=== PATIENT | female | born 1960 | race Caucasian/White ===

== ENCOUNTER 2021-05-14 09:11 | Outpatient (RCR) | payer MEDICARE, MEDICAID, SELFPAY ==
--- NOTE | 2021-05-14 11:24 | HP.OTEVAL_ITS ---
Patient's Visit Information JADE SWANSON is a 60 year old F, referred to Occupational Therapy by ERICA RUIZ, with a diagnosis of lymphedema. Date of Evaluation: 05/14/21 Occupational Therapist: Isha Jamison, SAVANNAH/Kendra, CHT - Subjective This 60 year old female was seen for OT anny with dx of LE lymphedema. Pt states she has had swelling in her LE for over 5 years. pt states her legs are slightly smaller in the morning, but elevation alone does not make much of a differance- pt states she was taken off a diuretic last year by her kidney dr. and swelling has gotten worse since this was done. Pt states she did get compression socks at that time but was unable to get them on. pt states a long time ago she had a leg pump (8-9 years ago after vein stripping) - but she lost it. pt states she would like to know what she can do to limit the swelling or mtg. better- Pt already has script from for velcro closure compression garments- they are having difficulty with getting them approved through the insurance company - ( compression class was not high enough) this therapist advised pt to contact the ordering dr for compression garments and see why they order that compression class and if they could increase the compression class so insurance would assist with covering garments - pts and pts family agreed to contact them. - - Lymphedema (Circumferential Measure) Mid-foot: right 24cm left 24cm Ankle: right 28cm left 27cm Lower calf: right 31cm left 32cm Largest calf: right 42cm left 44cm Below knee: right 36cm left 38cm - Goals Demonstrate a 20% reduction in edema by d/c: Yes Demonstrate adequate knowledge of self-massage by 2nd week: Yes Demonstrate adequate knowledge skin care/prec by 2nd week: Yes Demonstrate adequate knowledge therapeutic exercises by d/c: Yes Select approp compression garment w/donning/care/wear by d/c: Yes Voice need to replace compression garment every 4-6mo by dc: Yes - Rehabilitation General Assessment: pt demo with edema in LE - noted Left LE with hyperpigmentation (salmon pink in color) -. pt demo with stage II as pt does report elevation does not make much of a difference in her limb size. Pt demo with need of skilled Therapy services 2-3 visits to ed. pt on lifetime mtg of her lymphedema. Today therapist ed. pt and pts family on lymph dx, treatments and lymph stim exercises. therapist also ed. pt on skin care - and why she needs compression garments to assist in fluid circulation when she is ambulating. pt and pts family demo understanding-. in regards to pt asking about a pump to assist with fluid movement- would rec'd getting cleared by her kidney drInes due to risk of fluid moving and stressing her kidneys. pt agree to speak with them. pt and pts dtr placed order for compression garment at [facility] in [place] and will return with compression device to ensure proper fit and at that time therapist will ed. pt on self Manual lymph massage so pt can perform 3 x a day. pt and pts family agree to POC. Rehabilitation Potential: Good - Anticipated Interventions Education re Diagnosis, Manual Lymph Drainage, Education re Life-long lymphedema Management, Education re Skin Care and Precautions, Education re Self Massage Techniques, Education re Correct Donning Tech,Care&Wearing Sched Comp Garments, Caregiver Training, Home Program - Visit Plan TEXT: Thank you for the opportunity to evaluate your patient. For Medicare and Medicare HMO plans, please review the plan of care and approve it. It will need to be FAXED BACK to us at [phone] for Medicare purposes. Please let me know if there are questions or concerns regarding this plan of care. Physician Signature: Date:
== END 2021-05-14 19:00 | disposition home or self-care (01) ==
LOC: OT 09:11
DX: R60.0 Localized edema (principal); I89.0 Lymphedema, not elsewhere classified
CPT/HCPCS: 97166; 97530

== ENCOUNTER → 2022-12-02 | Outpatient (CLI) | payer MEDICARE, MEDICAID, SELFPAY ==
--- NOTE | 2022-12-02 16:35 | RAD_ITS ---
INDICATION: DISC DEGENERATION EXAMINATION/TECHNIQUE: X-RAY - XR Sacrum/Coccyx 3 Views COMPARISON: FINDINGS: SACRUM/COCCYX: No displaced fracture, destructive or sclerotic lesions. Note that overlapping bowel shadows may however obscure fine detail in the frontal view. SACRO-ILIAC JOINTS: The articular structures are unremarkable. SOFT TISSUES: No soft tissue swelling or gas. RAD/Sacrum-Coccyx min 2 Views IMPRESSION: No acute bony injury of the sacro-coccygeal spine. Electronically Signed: Zaheer Cardenas DO at 17:30 EDT Reading Location ID and State: [facility] / [place] Tel [phone], Service support ,
== END | disposition home or self-care (01) ==
LOC: RAD 16:23
PROVIDERS: PCP Nurse Practitioner Family; Referring Provider Anesthesiology Pain Medicine; Visit Provider Anesthesiology Pain Medicine
DX: M51.36 Other intervertebral disc degeneration, lumbar region (principal); M51.37 Other intervertebral disc degeneration, lumbosacral region
CPT/HCPCS: 72220

== ENCOUNTER 2022-12-12 16:28 | Emergency (ER) | payer MEDICARE, MEDICAID, SELFPAY ==
[2022-12-12 16:28] VITALS: BP 143/75; PULSE 69; RESP 18; TEMP 36.4; O2SAT 100
--- NOTE | 2022-12-12 16:33 | EDS_ITS ---
HPI History of Present Illness Chief Complaint: Chest Pain [facility] Medical History (Updated 12/12/22 @ 16:54 by Trell Santana) CHF (congestive heart failure) Diabetes Emphysema lung Heart attack Hypothyroid Kidney failure Neuropathy Schizoaffective disorder, bipolar type Allergy/AdvReac Type Severity Reaction Status Date / Time aspirin Allergy Mild Hives Verified 12/12/22 16:33 erythromycin base Allergy Mild Hives Verified 12/12/22 16:33 Penicillins Allergy Mild Hives Verified 12/12/22 16:33 polyethylene glycol 3350 Allergy Mild Nausea/Vom/ Verified 12/12/22 16:33 [From Miralax] Diarrhea tramadol Allergy Mild Hives Verified 12/12/22 16:33 Social History Smoking Status: Current every day smoker tobacco type: cigarettes EXAM Physical Exam Const Vital Signs: 12/12/22 16:28 12/12/22 16:48 12/12/22 16:54 Temperature 97.5 F L 97.5 F L Temperature Source Temporal Oral Pulse Rate 69 60 Respiratory Rate 18 18 Blood Pressure 143/75 H 150/70 H Blood Pressure Mean 97 96 Pulse Ox 100 99 100 Oxygen Delivery Method Room Air Room Air Room Air Heart Score History: Slightly/Non-Suspicious ECG: Normal Age: >45 - <65 years Risk Factors: >/= 3 Risk Factors or History of CAD Troponin: </= Normal Limit Score: 3 MDM MDM MDM Narrative Medical decision making narrative: HISTORY OF PRESENT ILLNESS: 62-year-old female here with chest pain. States she is COVID-positive. States she was diagnosed 2 days ago. States starting chest pain this morning. She further states that started earlier today. Pain is described as pressure and sharp. It is not pleuritic. She does have a cough. Pain is worse with cough. Cough is nonproductive. No recent trauma to the chest. She notes she is still smoking. The patient denies recent surgery in the last 4 weeks or immobilization in the last 3 days, denies previous diagnosis of DVT or PE, hemoptysis, unilateral leg swelling or malignancy with treatment the last 6 months or palliative. No estrogen use noted. Patient denies sudden onset of pain, no tearing sensation, no migratory symptoms, no new numbness, weakness or loss of sensation. Patient denies family history or personal history of Connective tissue disorders (Marfan's Syndrome, Diann Danlos etc) REVIEW OF SYSTEMS: Pertinent positives: Chest pain, cough Pertinent negatives: Syncope, focal weakness, headache, neck stiffness, abdominal pain, unilateral leg swelling PHYSICAL EXAM: Nursing triage notes reviewed, Vital signs reviewed Constitutional: please see mdm HENT: MMM Eyes: Pupils equal round and reactive to light, Extraocular muscles intact Neck: No stridor, no JVD, full neck ROM Lungs: Diminished breath sounds throughout, positive wheezing no increased work of breathing, no conversational dyspnea, no accessory muscle use, no nasal flaring. No respiratory distress noted Heart: Regular rate and rhythm, No murmurs, No rubs and No gallops, 2+ distal pulses (radial, femoral, posterior tibial) in all extremities Abdomen: Soft, there is no tenderness, rigidity, rebound or guarding, no obvious peritoneal signs, no palpable pulsatile abdominal masses, no auscultated abdominal bruit : No CVAT Extremities: No edema Neuro: No focal neurological deficits, cranial nerves II through XII intact, 5/5 strength in all extremities. Intact sensation to light touch in all extremities, 2+ reflexes bilateral patella tendons. Normal gait. No ataxia. Skin: No rash or lesions noted MEDICAL DECISION MAKING: Chief Complaint: Chest pain External records reviewed: Imaging studies reviewed: No recent cardiac catheterizations, stress or echocardiograms noted in the chart. Baseline creatinine 1.39 per clinic thank Factors affecting care: COVID-19, COPD on home O2, CAD status post MS, VTE on Eliquis per the patient Social determinants of health: Current tobacco user History obtained from others: The patient's friend Consults: none [facility] Narrative: Patient was hemodynamically stable, afebrile, nontoxic-appearing. Exam with slight wheezing noted, no other focal cardiopulmonary abnormalities noted on exam I considered the following differential diagnosis: COVID-19 induced inflammation, bacterial pneumonia, ACS, arrhythmia, anemia, pneumothorax, PE, aortic dissection I considered pulmonary embolism without this was less likely given the patient's low risk Wells score and presence of Eliquis with compliance. Also consider aortic dissection however the patient no pulse deficits, no focal neurodeficits or history physical exam suggestive of aortic dissection. I obtained a broad lab and imaging work-up to further elucidate the etiology of the patient's complaints. ALL IMAGES (IF OBTAINED) HAVE BEEN PERSONALLY REVIEWED AND INTERPRETED BY MYSELF . EKG with normal sinus rhythm, normal axis, normal intervals, no STEMI CBC with mild anemia, no leukocytosis to suggest systemic inflammation, noted thrombocytopenia BMP with no electrolyte abnormalities, noted with mild CHELSEY on CKD Troponin is negative, no evidence of myocardial ischemia BNP within normal limit suggestive no increase stretch or heart strain I have personally reviewed the patient's chest x-ray. Chest x-ray is unremarkable for pulmonary edema, pneumothorax, pneumonia or focal cardiopulmonary abnormality. The amalgamation the patient's history, physical exam lab and imaging studies are suggestive of a COVID-19 infection resulting in chest inflammation and exacerbation of her underlying medical conditions. Repeat exam showed improvement in wheezing. She was not hypoxic. She not meet criteria for admission at this time. She did have acute kidney injury on CKD however she is not vomiting is likely dehydration from insensible loss from COVID. Encouraged her to increase her fluid intake and to return if she developed decreased urination, worsening symptoms including syncope, chest pain or focal weakness. Patient agreed she is appropriate for discharge and agreed to follow my home- going instructions. The patient and/or family, caregivers express understanding. The patient and/or family, caregivers agrees with the plan. Shared decision making: I will have a discussion with the patient and or visitors regarding risk/benefits of further testing or admission. They will be made aware of of the risk/benefits inherent in this decision they will be given the opportunity to voice understanding. Total critical care time today provided was at least 0 minutes. This excludes separately billable procedures. Critical care time (if documented) is secondary to the patient having high probability of clinically significant/life threatening deterioration in the patient's condition which required my urgent intervention. Impression: 1. COVID-19 2. Chest pain 3. Thrombocytopenia 4. CHELSEY on CKD Dispo: Discharge Lab Data Attestation: I reviewed the patient's lab results. Labs: Laboratory Results - last 24 hr 12/12/22 16:46 WBC 5.1 RBC 3.56 L Hgb 10.1 L Hct 32.2 L MCV 90.4 MCH 28.4 MCHC 31.4 L RDW Std Deviation 49.8 H RDW Coeff of Penny 15.0 H Plt Count 119 L MPV 9.5 Immature Gran % (Auto) 0.200 Neut % (Auto) 60.8 Lymph % (Auto) 20.5 [place] % (Auto) 14.8 H Eos % (Auto) 3.3 Baso % (Auto) 0.4 Absolute Neuts (auto) 3.1 Absolute Lymphs (auto) 1.04 Nucleated RBC % 0 Sodium 139 Potassium 4.2 Chloride 104 Carbon Dioxide 31.0 Anion Gap 4 L BUN 27 H Creatinine 1.81 H Estim Creat Clear Calc 26.32 Est GFR (MDRD) Af Amer 36 L Est GFR (MDRD) Non-Af 30 L BUN/Creatinine Ratio 14.9 Glucose 91 Calcium 8.7 Troponin I High Sens 7 B-Natriuretic Peptide 58.4 Radiography Chest X-Ray - ED: Read by ED Physician Diagnostic Testing: Clinical Impression(s) from Imaging Studies Chest X-Ray 12/12/22 16:53 IMPRESSION: No radiographic evidence of acute cardiopulmonary disease. Electronically Signed: Jj Florentino MD at 17:27 EDT , Discharge Plan Triage Chief Complaint: Chest Pain ED Provider: Hector Alcala Dx/Rx/DC Orders Instructions: Coronavirus Disease 2019 (COVID-19): Overview, ED Pleurisy Stand Alone Forms: Work / School Excuse Primary Care Provider: Eric Marion NP Referrals: Eric Marion NP, [employer] [Primary Care Provider] - Activity Restrictions/Additional Instructions: Thank you for trusting us with your care today! Please take Tylenol (2 pills, 650 mg), ibuprofen (2 pills, 400 mg) every 6 hours as needed for pain and fever control. Please return to the emergency department if your symptoms change or worsen. Please follow with your primary care physician for further outpatient evaluation and management. Per CDC guidance please isolate yourself for 5 days from work or other activities or exposures of other people. After 5 days please wear a mask for an additional 5 days. If you are asymptomatic at the 10 you may stop wearing her mask. Disposition Disposition: Home, Self Care
--- NOTE | 2022-12-12 16:34 | EKG12_ITS ---
Test Reason : Blood Pressure : / mmHG Vent. Rate : 067 BPM Atrial Rate : 067 BPM P-R Int : 142 ms QRS Dur : 082 ms QT Int : 402 ms P-R-T Axes : 058 055 053 degrees QTc Int : 424 ms Normal sinus rhythm Normal ECG Confirmed by TISHA HERRING, AMMON ([id number]), scientific publications editor CHINTAN KHAN ([id number]) on 12/15/2022 7:42:50 AM Referred By: IGNACIO Confirmed By:AMMON GILES MD
[2022-12-12] MEDS: 0.9% Normal Saline (500mL Bag) 500 ML 999 ML IV (16:46)
[2022-12-12] MEDS: Ketorolac 15 MG/ML Vial IV (16:47)
[2022-12-12 16:48] VITALS: BP 150/70; PULSE 60; RESP 18; TEMP 36.4; O2SAT 99; BMI 34.9
[2022-12-12 16:50] LABS: Absolute Lymphocyte Count 1.04 X10^3/uL (0.83-4.51); Absolute Neutrophil Count 3.1 X10^3/uL (2.0-7.7); Basophil# 0.02 X10^3/uL; Basophil% 0.4 % (0-1); Eosinophil# 0.17 X10^3/uL; Eosinophils% 3.3 % (0-5); Hematocrit 32.2 % (37-47); Hemoglobin 10.1 g/dL (12.0-15.0); Lymphocyte # 1.04 X10^3/ul (0.83-4.51); Lymphocyte % 20.5 % (19-41); Mean Corp Hgb Conc 31.4 g/dL (32-36); Mean Corpuscular Hgb 28.4 pg (27.0-32.0); Mean Corpuscular Volume 90.4 fL (81-99); Mean Platelet Vol. 9.5 fl (6.2-12.0); Monocyte# 0.75 X10^3/uL; Monocyte% 14.8 % (0-10); NRBC Flagged by Analyzer 0 % (0-5); Neutrophil # 3.09 X10^3/uL (2.7-7.7); Neutrophil % 60.8 % (47-70); Platelet Count 119 K/mm3 (150-450); RBC Distribution Width SD 49.8 fl (35.1-43.9); Red Blood Count 3.56 M/mm3 (4.2-5.4); White Blood Count 5.1 K/mm3 (4.4-11.0)
--- NOTE | 2022-12-12 16:53 | RAD_ITS ---
INDICATION: chest pain EXAMINATION/TECHNIQUE: X-RAY - portable upright AP chest x-ray COMPARISON: None. FINDINGS: LINES/DEVICES: Right-sided port. LUNGS: No consolidation, edema or effusion. No pneumothorax. MEDIASTINUM AND CARDIOVASCULAR STRUCTURES: Cardiac silhouette not enlarged. Central airways and mediastinal contour are unremarkable. BONES AND SOFT TISSUES: Unremarkable. RAD/Chest 1 View (Portable) IMPRESSION: No radiographic evidence of acute cardiopulmonary disease. Electronically Signed: Jj Florentino MD at 17:27 EDT ,
[2022-12-12 16:54] VITALS: O2SAT 100
[2022-12-12 17:13] LABS: BNP,B-Type NATRIURETIC PEPTIDE 58.4 pg/mL (0-100)
[2022-12-12 17:14] LABS: Anion Gap 4 (5-15); BUN 27 mg/dL (7-18); BUN/Creat Ratio 14.9 RATIO (10-20); Calcium,Total 8.7 mg/dL (8.5-10.1); Chloride 104 mmol/L (98-107); Creatinine, Serum 1.81 mg/dL (0.55-1.02); EST Glomerular Filtration Rate 30 mL/min (>60); Est Glom Filt Rate - Afr Amer 36 mL/min (>60); Estimated Creatinine Clearance 26.32 ml/min; Glucose 91 mg/dL (74-106); Potassium 4.2 mmol/L (3.5-5.1); Sodium Level 139 mmol/L (136-145); Troponin-I HS 7 pg/mL (3.0-54.0)
[2022-12-12 17:36] VITALS: PULSE 88; RESP 20
[2022-12-12] MEDS: Ipratropium/Albuterol Sulfate 3 ML AMPUL.NEB INHALATION (17:36)
[2022-12-12 17:58] VITALS: BP 159/82; PULSE 61; RESP 14; O2SAT 98
== END 2022-12-12 17:59 | disposition home or self-care (01) ==
PROVIDERS: Emergency Provider Emergency Medicine; PCP Nurse Practitioner Family; Visit Provider Emergency Medicine
DX: U07.1 COVID-19 (principal); N17.9 Acute kidney failure, unspecified; J43.9 Emphysema, unspecified; I50.9 Heart failure, unspecified; E11.40 Type 2 diabetes mellitus with diabetic neuropathy, unspecified; E11.22 Type 2 diabetes mellitus with diabetic chronic kidney disease; D69.6 Thrombocytopenia, unspecified; R07.9 Chest pain, unspecified; N18.9 Chronic kidney disease, unspecified; F17.210 Nicotine dependence, cigarettes, uncomplicated; Z79.01 Long term (current) use of anticoagulants; Z99.81 Dependence on supplemental oxygen
CPT/HCPCS: 71045; 80048; 83880; 84484; 85025; 93005; 94640; 96361; 96374; 99282

== ENCOUNTER 2023-01-07 05:45 | Day surgery (SDC) | payer MEDICARE, MEDICAID, SELFPAY ==
[2023-01-07] VITALS (9 sets, daily range): BP systolic 85–119; BP diastolic 39–47; PULSE 64–78; RESP 14–18; TEMP 36.2–36.6; O2SAT 96–100; BMI 34.5
[2023-01-07] MEDS: Lactated Ringers 1,000 ML 15 ML IV (06:25)
[2023-01-07 06:56] LABS: Bedside Glucose 150 mg/dL (74-106)
--- NOTE | 2023-01-07 07:08 | HP.PCM_ITS ---
History and Physical Date of Admission: 01/07/23 Date of Service: 12/24/22 MR#: [id number] Acct: [id number] Name: JADE SWANSON Rep #: [id number] : 1960 Provider: Dr. Tia Roberts MD Age/Sex: 62/F [place] [facility] [place] Status: Signed with Addenda ADDENDUM by Dr. Tia Roberts MD on 12/25/22 at 1230 Intake Chief Complaint: port removal consult Allergies aspirin Allergy (Mild, Verified 12/25/22 11:28) Hiveserythromycin base Allergy (Mild, Verified 12/25/22 11:28) HivesPenicillins Allergy (Mild, Verified 12/25/22 11:28) Hivespolyethylene glycol 3350 [From Miralax] Allergy (Mild, Verified 12/25/22 11:28) Nausea/Vom/Diarrheatramadol Allergy (Mild, Verified 12/25/22 11:28) Hivestomatoes Allergy (Uncoded 12/25/22 11:28) unknown Medications apixaban 5 mg tablet (Eliquis) 5 mg PO BID 12/24/22 [History Confirmed 12/25/22] aripiprazole 5 mg tablet (Abilify) 5 mg PO DAILY 12/24/22 [History Confirmed 12/24/22] atorvastatin 20 mg tablet 20 mg PO DAILY 12/24/22 [History Confirmed 12/25/22] benazepril 5 mg tablet 5 mg PO DAILY 12/24/22 [History Confirmed 12/25/22] budesonide 90 mcg/actuation breath activated powder inhaler 2 inh inhalation BID 12/24/22 [History Confirmed 12/25/22] budesonide-formoterol HFA 80 mcg-4.5 mcg/actuation aerosol inhaler (Symbicort) 2 puff inhalation Q12H 12/24/22 [History Confirmed 12/25/22] empagliflozin 10 mg tablet (Jardiance) 10 mg PO DAILY 12/24/22 [History Confirmed 12/25/22] famotidine 10 mg tablet 10 mg PO DAILY 12/24/22 [History Confirmed 12/25/22] fluoxetine 20 mg capsule 20 mg PO DAILY 12/24/22 [History Confirmed 12/24/22] furosemide 20 mg tablet (Lasix) 20 mg PO DAILY 12/24/22 [History Confirmed 12/25/22] levothyroxine 100 mcg capsule 100 mcg PO DAILY 12/24/22 [History Confirmed 12/25/22] naloxegol 25 mg tablet (Movantik) 25 mg PO QAM 12/24/22 [History Confirmed 12/25/22] sucralfate 100 mg/mL oral suspension (Carafate) 10 ml PO BID 12/24/22 [History Confirmed 12/25/22] baclofen 10 mg tablet 10 mg PO TID PRN 12/25/22 [History Confirmed 12/25/22] divalproex 500 mg tablet,delayed release (Depakote) 500 mg PO QHS 12/25/22 [History Confirmed 12/25/22] dulaglutide 1.5 mg/0.5 mL subcutaneous pen injector (Trulicity) 0.75 mg subcut QWEEK 12/25/22 [History Confirmed 12/25/22] fluticasone propionate 50 mcg/actuation nasal spray,suspension (Flonase Allergy Relief) 2 spray intranasal DAILY 12/25/22 [History Confirmed 12/25/22] gabapentin 300 mg capsule 300 mg PO .QID 12/25/22 [History Confirmed 12/25/22] Assessment and Plan Assessment and Plan (1) Encounter for infusaport central venous catheter removal: Status: Acute (2) Paroxysmal atrial fibrillation: Status: Acute (3) jail current use of anticoagulant: Status: Acute Medications: New divalproex (Depakote) 500 mg PO QHS dulaglutide (Trulicity) 0.75 mg subcut QWEEK baclofen 10 mg PO TID PRN gabapentin 300 mg PO .QID Plan Patient did have a chest x-ray here due to an ER visit on 12/12/2022 shows that it is a right IJ Port-A-Cath. 12/25/22 1230 <Electronically signed by Tia Roberts MD> Date Tia Roberts MD cc: FATMATA Marion ~* Signed Intake Vital Signs 12/13/2315:28 12/24/2312:50 Height 5 ft 3 in 5 ft 3 in Weight: 196 lb BMI 34.7 BP 94/56 L Blood Pressure Location Rt brachial Position Sitting Respiration 17 Pulse 67 Pulse Source Monitor Pulse Oximetry (%) 97 Oxygen Delivery Method room air Intake Visit Reasons: PORT REMOVAL Chief Complaint: port removal consult Is patient in pain?: Yes Allergies aspirin Allergy (Mild, Verified 12/25/22 11:28) Hiveserythromycin base Allergy (Mild, Verified 12/25/22 11:28) HivesPenicillins Allergy (Mild, Verified 12/25/22 11:28) Hivespolyethylene glycol 3350 [From Miralax] Allergy (Mild, Verified 12/25/22 11:28) Nausea/Vom/Diarrheatramadol Allergy (Mild, Verified 12/25/22 11:28) Hivestomatoes Allergy (Uncoded 12/25/22 11:28) unknown Medications apixaban 5 mg tablet (Eliquis) 5 mg PO BID 12/24/22 [History Confirmed 12/25/22] aripiprazole 5 mg tablet (Abilify) 5 mg PO DAILY 12/24/22 [History Confirmed 12/24/22] atorvastatin 20 mg tablet 20 mg PO DAILY 12/24/22 [History Confirmed 12/25/22] benazepril 5 mg tablet 5 mg PO DAILY 12/24/22 [History Confirmed 12/25/22] budesonide 90 mcg/actuation breath activated powder inhaler 2 inh inhalation BID 12/24/22 [History Confirmed 12/25/22] budesonide-formoterol HFA 80 mcg-4.5 mcg/actuation aerosol inhaler (Symbicort) 2 puff inhalation Q12H 12/24/22 [History Confirmed 12/25/22] empagliflozin 10 mg tablet (Jardiance) 10 mg PO DAILY 12/24/22 [History Confirmed 12/25/22] famotidine 10 mg tablet 10 mg PO DAILY 12/24/22 [History Confirmed 12/25/22] fluoxetine 20 mg capsule 20 mg PO DAILY 12/24/22 [History Confirmed 12/24/22] furosemide 20 mg tablet (Lasix) 20 mg PO DAILY 12/24/22 [History Confirmed 12/25/22] levothyroxine 100 mcg capsule 100 mcg PO DAILY 12/24/22 [History Confirmed 12/25/22] naloxegol 25 mg tablet (Movantik) 25 mg PO QAM 12/24/22 [History Confirmed 12/25/22] sucralfate 100 mg/mL oral suspension (Carafate) 10 ml PO BID 12/24/22 [History Confirmed 12/25/22] baclofen 10 mg tablet 10 mg PO TID PRN 12/25/22 [History Confirmed 12/25/22] divalproex 500 mg tablet,delayed release (Depakote) 500 mg PO QHS 12/25/22 [History Confirmed 12/25/22] dulaglutide 1.5 mg/0.5 mL subcutaneous pen injector (Trulicity) 0.75 mg subcut QWEEK 12/25/22 [History Confirmed 12/25/22] fluticasone propionate 50 mcg/actuation nasal spray,suspension (Flonase Allergy Relief) 2 spray intranasal DAILY 12/25/22 [History Confirmed 12/25/22] gabapentin 300 mg capsule 300 mg PO .QID 12/25/22 [History Confirmed 12/25/22] PFSH Medical History (Updated 12/25/22 @ 12:[address] Tia Roberts MD) CHF (congestive heart failure) COPD (chronic obstructive pulmonary disease) Decreased left ventricular function Diabetes Diverticulosis Emphysema lung Essential hypertension Heart attack Hypothyroid Iron deficiency anemia Kidney failure Lichen sclerosus Macular degeneration Migraine Neuropathy Paroxysmal atrial fibrillation Schizoaffective disorder, bipolar type Surgical History (Updated 12/25/22 @ 11:59 by Lindsey Pitts RN) H/O: hysterectomy History of bilateral cataract extraction History of delivery History of cholecystectomy History of lithotripsy Family History (Updated 12/25/22 @ 12:04 by Lindsey Pitts, RN) Mother Heart disease Hypertension CancerFather Brain aneurysm age 40 CVA (cerebral vascular accident) CancerBrother Colon cancer Social History (Updated 12/25/22 @ 12:04 by Lindsey Pitts, RN) Smoking Status: Current every day smoker tobacco type: cigarettes alcohol intake: never substance use type: does not use caffeine: Yes HPI HPI HPI: 62-year-old female presents due to port removal. Patient's had a port in for about 20 years. Last accessed maybe 2 years ago. Patient states it was previously placed for IV access as she was having multiple hospitalizations at that time. Patient states she had a chest x-ray at [place]. ROS General General: Yes weight change and fatigue; No appetite, colon cancer or breast cancer HEENT HEENT: Yes eye surgery; No difficulty swallowing, eye injury, swollen glands or hoarseness Endo Endocrine: Yes thyroid disease; No diabetes mellitus, thyroid cancer, Hair loss, heat intolerance or cold intolerance Skin Skin: No rash or changing moles Musc Musculoskeletal: Yes back problems, arthritis and gout; No rheumatoid arthritis or joint pain Cardio Cardiovascular: Yes high blood pressure and heart attack; No murmur, pacemaker, heart disease, atrial fibrillation, heart stent, palpitations, shortness of breat with exertion or chest pain Psych Psychiatric: Yes depression and anxiety; No hearing voices Resp Respiratory: Yes shortness of breath, Yes sleep apnea, No cough, No COPD, No asthma, Yes emphysema and No wheezing Gastro Gastrointestinal: No abdominal pain, Yes nausea or vomiting, Yes diarrhea, Yes constipation, No blood in stool, Yes acid reflux, Yes hemorrhoids, Yes ulcers, No gallbladder problem and No black,tarry stools [place] Hematologic: Yes blood thinners, No blood disorders, No bleeding, No anemia and Yes blood clots Neuro Neurologic: Yes numbness and Yes tingling Exam Const General: cooperative, comfortable and no acute distress [facility] Head: normocephalic and atraumatic Neck Neck: supple Chest Other: Right chest incision well-healed clean dry and intact no signs of infection?reports likely as subclavian port as no catheters felt to go up towards the IJ. Resp Effort & Inspection: normal respiratory effort Cardio Rate: regular rate GI Inspection: non-distended Skin General: no rashes or lesions noted Neuro General: CN's II-XI intact bilaterally Extrem General: normal to inspection Psych Mental Status: mental status grossly normal Attitude: cooperative Assessment and Plan Assessment and Plan (1) Encounter for infusaport central venous catheter removal: Status: Acute (2) Paroxysmal atrial fibrillation: Status: Acute (3) jail current use of anticoagulant: Status: Acute Medications: New divalproex (Depakote) 500 mg PO QHS dulaglutide (Trulicity) 0.75 mg subcut QWEEK baclofen 10 mg PO TID PRN gabapentin 300 mg PO .QID Plan Patient is on Eliquis due to A-fib need to hold 3 days prior to procedure. Discussed with patient as well as her sister that having this port in for 20 years would be high risk for this port catheter fracturing or migrating or not being able to be removed. Discussed that would plan to remake the incision in her right chest and remove the port however if the catheter did not easily come out I would not do any additional procedures and I would take a permanent suture and suture it in place as likely it had grown into the vessel and would be very risky to attempt to remove. Also discussed that I cannot guarantee in the future this catheter would not fracture or migrate. Patient and her sister no further questions this time and agreed to proceed. Plan for right chest port removal in OR with fluoroscopy. Tia Roberts M.D. Pager: [phone] [facility] [address] [place] [address], [address] [place] [address] Office: [phone] Coding Level of Care Code Off vis,new,level 3 Diagnoses Encounter for infusaport central venous catheter removal Z45.2 Paroxysmal atrial fibrillation I48.0 buttermaker continuous churn current use of anticoagulant Z79.01 12/25/22 1228 <Electronically signed by Tia Roberts MD> Date Tia Roberts MD
--- NOTE | 2023-01-07 07:30 | FORE_PTH ---
PATIENT: JADE SWANSON [place] [facility] [place][id number] AGE/SX: 62/F ROOM: RE01/07/[address]: Dr. Tia Roberts MD : 1960 BED: DIS: 01/07/2023 SPEC #: [id number] RECD: 01/07/23 10:33 STATUS: NORM REDaria #: [id number] LINSEY: 01/07/23 07:[address]: Tia Roberts DEPT: SURGICAL PATHOLOGY RECD BY: Kay Nguyễn ENTERED: 01/07/23 12:47 SP TYPE: FOREIGN B OTHR DR: Eric Marion, FATMATA Tissues: FOREIGN BODY Procedures: Surgery Specimen Level I HEADER OPERATION: Removal port PRE-OP DIAGNOSIS: Encounter for infusaport central venous catheter removal TISSUE SUBMITTED: Explanted right vascular port without catheter GROSS DIAGNOSIS Port without catheter: Metallic/plastic port (gross only). SJ: 01/11/2023 GROSS DESCRIPTION Received labeled with the patient's name and designated right vascular port. The specimen consists of a part metal/part plastic port measuring 5.7 x 3.2 x 1.5 cm and it bears the following inscription BARD [id number]. No soft tissue is adherent to the port. / AM:jon 01/07/2023 CPT: 93400
[2023-01-07] MEDS: Bupivacaine Mpf 0.5% 30 ML VIAL (08:15)
[2023-01-07] MEDS: Lidocaine 1% /Epi 1:100 (50ml) 50 ML VIAL (08:15)
--- NOTE | 2023-01-07 08:21 | PCM.OPRPT ---
Report of Operation Date of Procedure: 01/07/23 Pre-Operative Diagnosis: Z45.2 Post-Operative Diagnosis: Same Surgery/Procedure Performed:: 1. Right IJ chest port removal?catheter still in place 2. Use of fluoroscopy Description of Surgical Findings:: Unable to easily remove catheter under fluoroscopy appeared that it would pull from the subcutaneous tissue but it would not move at all from the insertion site at RIJ/vessel. Decision was made to secure the catheter with Prolene sutures and remove the port. Surgeon: Tia Roberts Type of Anesthesia: Local MAC Anesthesiologist: Madhav Clarke Specimen's removed: port & only proximal catheter Estimated Blood Loss (mL): < 5 cc Description of Procedure: Indications: 62-year-old female presents for port removal its been in for 20+ years. Patient was placed supine on the operating room table with the right arm tucked and appropriately padded. A timeout was completed verifying correct patient, procedure, site, position, and special equipment prior to beginning procedure. MAC anesthesia was induced. The right upper chest and neck were prepped and draped in usual sterile fashion. Local anesthesia of 1% lidocaine with epi and 0.5% Marcaine and a 1:1 mixture used throughout the case. Previous right upper chest incision was incised with a 15 blade scalpel and deepened to the subcutaneous tissue with electrocautery. The capsule surrounding the port was opened with Metzenbaum scissors. The sutures securing the port in place were cut. The port was removed; however the catheter was unable to be removed easily with the use of fluoroscopy- didn't release from RIJ insertion site. Thus the catheter was cut and sutured into place with three 3-0 Prolene sutures. The port pocket was irrigated with saline. Hemostasis was assured. This was closed using interrupted 3-0 Vicryl sutures and the skin was closed with interrupted 4-0 Monocryl sutures with Steri-Strips. Patient tolerated procedure well to the postanesthesia care unit in stable condition. Complications none
--- NOTE | 2023-01-07 08:26 | EX.PCM.DISCH ---
Discharge Instructions Diet Discharge Diet: No restrictions Dressing / Incision Call your doctor if your incision/area has: Continuous Slow Oozing, Sudden Increased Bleeding, Increased Pain/ Swelling and Increased Redness Remove Dressing in: 2 days Additional Dressing/Incision Instructions:: Steri-Strips will fall off in 7 to 10 days if they do not follow-up in 10 days okay to remove. Follow Up Care Please Follow Up With: Tia Roberts MD When: Call the office for a follow-up in about 2 weeks. Test Results: Test results from this visit will be discussed in further detail at your follow-up appointment, if applicable. Discharge Plan Admission Attending Provider: Tia Roberts Primary Care Provider: Eric Marion NP Discharge Orders/Prescriptions Prescriptions: Continued atorvastatin 20 mg tablet 20 mg PO DAILY benazepril 5 mg tablet 5 mg PO DAILY budesonide 90 mcg/actuation aerosol powdr breath activated 2 inh inhalation BID Eliquis 5 mg tablet 5 mg PO BID famotidine 10 mg tablet 20 mg PO DAILY fluoxetine 20 mg capsule 20 mg PO DAILY furosemide [Lasix] 20 mg tablet 20 mg PO DAILY Jardiance 10 mg tablet 10 mg PO DAILY levothyroxine 100 mcg capsule 100 mcg PO DAILY sucralfate [Carafate] 100 mg/mL suspension 10 ml PO BID Movantik 25 mg tablet 25 mg PO QAM Rx Instructions: must be taken on empty stomach; no food 1 hr after or 2-3 hrs before dose divalproex [Depakote] 500 mg tablet,delayed release (DR/EC) 500 mg PO QHS Trulicity 1.5 mg/0.5 mL pen injector 0.75 mg subcut QWEEK baclofen 10 mg tablet 10 mg PO TID gabapentin 300 mg capsule 300 mg PO .QID albuterol sulfate 90 mcg/actuation HFA aerosol inhaler 1 inh INHALATION PRN PRN (Reason: shortness of breath or wheezing) trazodone 100 mg tablet 100 mg PO QHS Patient Comments: TAKE 1 TABLET BY MOUTH EVERY DAY AT NIGHT tizanidine 4 mg tablet 4 mg PO DAILY Patient Comments: TAKE 1 TABLET BY MOUTH EVERY DAY meloxicam 7.5 mg tablet 7.5 mg PO DAILY Patient Comments: TAKE 1 TABLET BY MOUTH EVERY DAY FOR 30DAYS ON A FULL STOMACH ondansetron HCl 8 mg tablet 8 mg PO PRN Patient Comments: TAKE ONE TABLET BY MOUTH TWICE DAILY FOR NAUSEA AND VOMITING loperamide 2 mg capsule 2 mg PO Q4H PRN (Reason: loose stool) Patient Comments: TAKE ONE CAPSULE BY MOUTH THREE TIMES DAILY NEEDED FOR DIARRHEA Held aripiprazole [Abilify] 5 mg tablet 5 mg PO QHS Hold Instructions: Resume on 01/08/23. Referrals / Follow Up: Eric Marion [employer] RADIATOR MECHANIC, [employer] RADIATOR MECHANIC-C [Primary Care Provider] - Disposition Disposition (needs filled in before D/C Order can be placed): Home, Self Care
--- NOTE | 2023-01-07 08:28 | RAD_ITS ---
STUDY: X-RAY CHEST REASON FOR EXAM: Female, 62 years old. Port removal but catheter secured in place -- pacu TECHNIQUE: Single AP portable view of the chest. COMPARISON: Comparison is made with prior study dated December 12, 2022. FINDINGS: The right-sided portacatheter seen and is unchanged except for removal of the port portion. The lungs are clear and expanded. There is no demonstrated pleural abnormality. Normal size heart. Normal mediastinum and jeannie. Normal visualized pulmonary arteries. Normal visualized aortic arch and descending thoracic aorta. There are diffuse degenerative changes of the visualized thoracic spine. Normal visualized ribs, clavicles, and shoulders. There is no demonstrated abnormality of the visualized soft tissue structures of the upper abdomen. RAD/Chest 1 View (Portable) IMPRESSION: Removal of the port portion of the chaparro catheter. The catheter remains in place and is unchanged. Electronically Signed: Junior Carpio MD at 8:53 EDT ,
== END 2023-01-07 09:51 | disposition home or self-care (01) ==
LOC: SDC 05:46 → AC 05:47
PROVIDERS: PCP Nurse Practitioner Family; Referring Provider Surgery; Visit Provider Surgery
PROC: (CPT 36590; principal; 2023-01-07 07:15)
DX: Z45.2 Encounter for adjustment and management of vascular access device (principal); F25.0 Schizoaffective disorder, bipolar type; J44.9 Chronic obstructive pulmonary disease, unspecified; I50.9 Heart failure, unspecified; I11.0 Hypertensive heart disease with heart failure; E11.40 Type 2 diabetes mellitus with diabetic neuropathy, unspecified; I48.0 Paroxysmal atrial fibrillation; F17.210 Nicotine dependence, cigarettes, uncomplicated; I25.2 Old myocardial infarction; E03.9 Hypothyroidism, unspecified; E78.00 Pure hypercholesterolemia, unspecified; K21.9 Gastro-esophageal reflux disease without esophagitis; F32.9 Major depressive disorder, single episode, unspecified; Z79.01 Long term (current) use of anticoagulants; Z79.84 Long term (current) use of oral hypoglycemic drugs; Z79.899 Other long term (current) drug therapy; Z99.81 Dependence on supplemental oxygen; Z86.16 Personal history of COVID-19
CPT/HCPCS: 36590; 71045; 76000; 82962; 88300; J7120; J2405

== ENCOUNTER → 2023-01-25 | Outpatient (CLI) | payer MEDICARE, MEDICAID, SELFPAY ==
--- NOTE | 2023-01-26 07:16 | PFTCOMP ---
COMPLETE PULMONARY FUNCTION TEST INTERPRETATION Brief HPI: Patient is a 62-year-old female, currently under the care of myself, who presents to [facility] for complete pulmonary function tests secondary to diagnosis of COPD. Respiratory therapist reports good effort and reproducible results. Interpretation: Forced expiration spirometry shows no large airways obstructive ventilatory defect with an FEV1 of 66% predicted. There is no significant bronchodilator response by strict ATS criteria. Spirograms are of good quality and plateau normally. The respiratory flow volume loop shows a normal pattern. Lung volumes by body plethysmography show a decreased total lung capacity at 3.67 L, 74% predicted. All other lung volumes are reduced symmetrically. Diffusion capacity by carbon monoxide is decreased at 66% predicted. The airway resistance is elevated. No previous pulmonary function tests were available for review. Impression: Mild restrictive ventilatory defect with a disproportionate reduction in diffusion capacity
== END | disposition home or self-care (01) ==
LOC: PSN 12:48
PROVIDERS: PCP Nurse Practitioner Family; Referring Provider Internal Medicine Critical Care Medicine; Visit Provider Internal Medicine Critical Care Medicine
DX: J44.9 Chronic obstructive pulmonary disease, unspecified (principal)
CPT/HCPCS: 94060; 94726; 94729

== ENCOUNTER → 2023-02-02 | Outpatient (CLI) | payer MEDICARE, MEDICAID, SELFPAY ==
[2023-02-02 11:00] VITALS: PULSE 73; PULSE 75; PULSE 79; PULSE 85; PULSE 86; PULSE 87; O2SAT 97; O2SAT 98; O2SAT 99
--- NOTE | 2023-02-02 17:35 | PCM.PSN.6M ---
PSN 6 Minute Walk Test 6 Minute Walk Test 6 Minute Walk Test: 6 Minute Walk Test PSN:6-Minute Walk Test Start: 02/02/23 11:11 Freq: Status: Active Protocol: RESP.6MINW Document 02/02/23 11:00 EW (Rec: 02/02/23 11:15 EW Desktop) 6 Minute Walk Test Date Performed 02/02/23 Time Performed 11:00 Height 5 ft 3 in Weight: 89.358 kg Weight in Pounds 197.[address]: Horace Quintanilla Assistive device used: Walker Pre-test Oxygen Delivery Method Room Air Pulse Ox 99 Pulse Rate (60-100) 79 Dyspnea Bob Scale (0-10) 3 Exertion Bob Scale (6-20) 13 1st minute Oxygen Delivery Method Room Air Pulse Ox 98 Pulse Rate (60-100) 79 2nd minute Oxygen Delivery Method Room Air Pulse Ox 99 Pulse Rate (60-100) 85 3rd minute Oxygen Delivery Method Room Air Pulse Ox 98 Pulse Rate (60-100) 87 4th minute Oxygen Delivery Method Room Air Pulse Ox 98 Pulse Rate (60-100) 86 5th minute Oxygen Delivery Method Room Air Pulse Ox 97 Pulse Rate (60-100) 85 6th minute Oxygen Delivery Method Room Air Pulse Ox 99 Pulse Rate (60-100) 75 Post-test Oxygen Delivery Method Room Air Pulse Ox 98 Pulse Rate (60-100) 73 Dyspnea Bob Scale (0-10) 4 Exertion Bob Scale (6-20) 16 Full Laps Walked 11 Partial Lap, Number of Tiles Walked 30 Total Distance Walked (ft) 679 Interpretation Interpretation: The patient was able to ambulate only 679 feet over the course of 6 minutes on room air with the assistance of a walker and no breaks. The patient experienced no significant desaturation or tachycardia. These findings are consistent with a musculoskeletal limitation exercise tolerance. Recommendations Recommendations: No supplemental oxygen is indicated at this time. However, patient may need to be retested if musculoskeletal status improves.
== END | disposition home or self-care (01) ==
LOC: PSN 10:44
PROVIDERS: PCP Nurse Practitioner Family; Referring Provider Internal Medicine Critical Care Medicine; Visit Provider Internal Medicine Critical Care Medicine
DX: J44.9 Chronic obstructive pulmonary disease, unspecified (principal)
CPT/HCPCS: 94618

== ENCOUNTER → 2023-02-10 | Outpatient (CLI) | payer MEDICARE, MEDICAID, SELFPAY ==
--- NOTE | 2023-02-10 06:07 | ECHOD_ITS ---
Reason For Study: PAROXYSMAL AFIB Procedure This was a 2D Doppler, Color Flow transthoracic echocardiogram. Exam performed in department. Left Ventricle Normal size and thickness. The left ventricular ejection fraction is 65 %. Diastolic function is indeterminate. Right Ventricle Normal right ventricle. Atria The left atrium is mildly enlarged. Normal right atrium. Mitral Valve Trivial mitral valve insufficiency. Tricuspid Valve Mild tricuspid valve insufficiency. Right ventricular systolic pressure estimated to be 50 mmHg. Aortic Valve The aortic valve is not well visualized in the short axis view. There is no aortic stenosis. No aortic valve insufficiency. Pulmonic Valve The pulmonic valve is not well visualized. Great Vessels Normal sized aortic root. Pericardium/Pleural No pericardial effusion. MMode/2D Measurements & Calculations LVIDd: 4.4 cm IVSd: 1.1 cm Ao root diam: 2.7 cm LVIDs: 3.2 cm LVPWd: 1.1 cm RVDd: 2.9 cm FS: 27.8 % LAV(MOD-bp): 45.9 ml LVAd ap4: 29.1 cm2 LVAd ap2: 29.4 cm2 LAV(MOD-bp) Indexed: 23.5 ml/m2 LVLd ap4: 7.6 cm LVLd ap2: 7.6 cm LAV(MOD-sp2): 32.0 ml EDV(MOD-sp4): 90.8 ml EDV(MOD-sp2): 95.4 ml LAV(MOD-sp4): 58.0 ml EDV(sp4-el): 95.3 ml EDV(sp2-el): 96.2 ml LVAs ap4: 15.2 cm2 LVAs ap2: 13.5 cm2 LVLs ap4: 5.9 cm LVLs ap2: 5.9 cm ESV(MOD-sp4): 35.3 ml ESV(MOD-sp2): 27.4 ml ESV(sp4-el): 33.4 ml ESV(sp2-el): 26.0 ml EF(MOD-sp4): 61.2 % EF(MOD-sp2): 71.2 % EF(sp4-el): 64.9 % SV(MOD-sp4): 55.5 ml SV(MOD-sp2): 68.0 ml SV(sp4-el): 61.9 ml LA dimension(2D): 3.3 cm LA A4 area: 18.7 cm2 RA A4 area: 12.7 cm2 TAPSE: 2.4 cm Time Measurements MV dec time: 0.24 sec Doppler Measurements & Calculations MV E max antonio: 118.9 cm/sec Lat Peak E' Antonio: 8.0 cm/sec Med Peak E' Antonio: 6.4 cm/sec MV A max antonio: 116.8 cm/sec E/E' lat: 14.8 E/E' med: 18.5 MV E/A: 1.0 MV V2 max: 146.9 cm/sec MV P1/2t max antonio: 137.7 cm/sec Ao V2 max: 165.4 cm/sec MV max P.6 mmHg MV P1/2t: 78.6 msec Ao max P.0 mmHg MV V2 mean: 86.1 cm/sec MV dec slope: 512.9 cm/sec2 Ao V2 mean: 111.7 cm/sec MV mean P.4 mmHg Ao mean P.7 mmHg MV V2 VTI: 43.4 cm MVA(P1/2t): 2.8 cm2 Ao V2 VTI: 38.9 cm AV (velocity ratio): 0.73 LV V1 max: 121.5 cm/sec TR max antonio: 294.1 cm/sec LV V1 max P.9 mmHg TR max P.6 mmHg LV V1 mean P.1 mmHg LV V1 mean: 81.8 cm/sec LV V1 VTI: 28.4 cm ECHO/Echo Complete Interpretation Summary The left ventricular ejection fraction is 65 %. Diastolic function is indeterminate. The left atrium is mildly enlarged. Right ventricular systolic pressure estimated to be 50 mmHg. Mild tricuspid valve insufficiency. Ordering Physician: Horace Quintanilla Referring Physician: Eric Marion Performed By: Lissette Morris RDCS, RVT
--- NOTE | 2023-02-10 09:24 | STRESSREP_ITS ---
Stress Test Report Date: 02/10/2023 Procedure: Pharmacologic stress nuclear imaging study Indications: Dyspnea Consent: Per the patient Procedure: The patient underwent pharmacologic (Regadenoson 0.4mg ) evaluation with a peak heart rate of 101 beats per minute (64%predicted maximal heart rate) and a peak blood pressure of 150/54 mmHg. The baseline ECG demonstrated sinus rhythm. The peak pharmacologic ECG demonstrated no ischemic changes. There were no cardiac dysrhythmias pretest, during pharmacologic infusion, or recovery. There was no complaint of chest discomfort during pharmacologic infusion or recovery. The patient was injected with 12.0 millicuries of technetium 99m Cardiolite and subsequently rest SPECT Cardiolite nuclear imaging was obtained in the horizontal long, vertical long, and short axis views. The patient underwent pharmacologic (Regadenoson) evaluation. The patient was injected with 34.7 millicuries of technetium 99m Cardiolite and subsequently stress SPECT Cardiolite nuclear imaging was obtained in the horizontal long, vertical long, and short axis views. A gated Cardiolite study at peak stress was obtained. The examination was stopped secondary to completion of protocol. Rest and stress SPECT Cardiolite nuclear imaging status post realignment, normalization, and attenuation correction demonstrate no fixed or reversible perfusion defects. There is end systolic thickening and brightening. The gated Cardiolite study demonstrates myocardial thickening and inward wall motion. The reported LVEF is 73%. Impression: 1. Pharmacologic (Regadenoson) evaluation 2. Peak pharmacologic ECG with no diagnostic ischemic changes. 3. There were no cardiac dysrhythmias pretest, during pharmacologic infusion, or recovery. 5. Rest and stress SPECT Cardiolite nuclear imaging demonstrate relative uniform tracer uptake and myocardial perfusion appearing within normal limits. 6. The gated Cardiolite study reports an LVEF of 73%. This note was generated with [employer] software. It may contain incorrect words, spelling, and punctuation that were not noted in checking the note before signing.
== END | disposition home or self-care (01) ==
PROVIDERS: PCP Nurse Practitioner Family; Referring Provider Internal Medicine Cardiovascular Disease; Visit Provider Internal Medicine Cardiovascular Disease
DX: I48.0 Paroxysmal atrial fibrillation (principal); J44.9 Chronic obstructive pulmonary disease, unspecified; I50.9 Heart failure, unspecified; I11.0 Hypertensive heart disease with heart failure; R07.9 Chest pain, unspecified; Z79.01 Long term (current) use of anticoagulants; Z86.74 Personal history of sudden cardiac arrest
CPT/HCPCS: 78452; 93017; 93306; A9500; A4216; J2785

== ENCOUNTER → 2023-02-18 | Outpatient (CLI) | payer MEDICARE, MEDICAID, SELFPAY ==
--- NOTE | 2023-02-18 10:39 | MRI_ITS ---
EXAM: MR LUMBAR SPINE WITHOUT INTRAVENOUS CONTRAST CLINICAL INDICATION: RADICULOPATHY TECHNIQUE: Multiplanar and multisequence MR images of the lumbar spine without intravenous contrast. COMPARISON: No relevant prior studies available. FINDINGS: VERTEBRAE: No posterior disc protrusion or spinal stenosis. Facet arthropathy and lateral disc bulging results in moderate right and mild left neural foraminal narrowing. SPINAL CORD: Normal. Normal position and signal intensity of the conus medullaris. SOFT TISSUES: Normal. DISCS/SPINAL CANAL/NEURAL FORAMINA: L1-L2: Mild disc space narrowing. Mild bulging without significant impingement on the thecal sac. Intact neural foramina. Normal spinal canal and lateral recesses. L2-L3: Normal. Normal disc height and morphology. Normal spinal canal and lateral recesses. Normal neuroforamina. L3-L4: Mild broad-based disc protrusion, ligamentous hypertrophy and facet arthropathy results in mild spinal stenosis and mild right and moderate left neural neural foraminal stenosis at Narrowing due to a degenerative disc bulge and bony hypertrophy. L4-L5: Mild disc bulging, prominent posterior ligamentous hypertrophy and facet arthropathy results in severe spinal stenosis. Lateral disc bulging and facet arthropathy results in severe bilateral neural foraminal narrowing. L5-S1: Normal. Normal disc height and morphology. Normal spinal canal and lateral recesses. Normal neuroforamina. MRI/Spine Lumbar (Routine) IMPRESSION: 1. Marked spinal stenosis at L4-5 predominantly related to ligamentous hypertrophy and facet arthropathy. 2. Multilevel neural foraminal narrowing as described. Electronically Signed: Nicholas Weiss MD at 16:47 EST ,
== END | disposition home or self-care (01) ==
LOC: MRI 10:35
PROVIDERS: PCP Nurse Practitioner Family; Referring Provider Anesthesiology Pain Medicine; Visit Provider Anesthesiology Pain Medicine
DX: M54.16 Radiculopathy, lumbar region (principal)
CPT/HCPCS: 72148

== ENCOUNTER 2023-02-21 16:33 | Emergency (ER) | payer MEDICARE, MEDICAID, SELFPAY ==
[2023-02-21 16:33] VITALS: BP 108/55; PULSE 79; RESP 17; TEMP 36.2; O2SAT 98
--- NOTE | 2023-02-21 18:21 | EKG12_ITS ---
Test Reason : CP Blood Pressure : / mmHG Vent. Rate : 068 BPM Atrial Rate : 068 BPM P-R Int : 134 ms QRS Dur : 074 ms QT Int : 398 ms P-R-T Axes : 024 052 059 degrees QTc Int : 423 ms Normal sinus rhythm Normal ECG No previous ECGs available Confirmed by TISHA HERRING, AMMON ([id number]), pictures editor ADRI ORTIZ ([id number]) on 02/23/2023 11:21:21 AM Referred By: Goldy Thomas Confirmed By:AMMON GILES MD
--- NOTE | 2023-02-21 18:23 | ED.RN ---
Pt yelling out to nurse in triage that its her turn to go back, other people are not sick, being rude to other pts in the waiting room. Security at triage desk. Pt then yelling I am having chest pain so that means I get to go back now, this nurse attempted to explain process to pt. Pt ignoring this nurse. This nurse ordered EKG and notified respiratory. Charge nurse aware.
[2023-02-21 19:02] VITALS: BP 108/72; PULSE 79; RESP 16; TEMP 36.4; O2SAT 98
--- NOTE | 2023-02-21 19:05 | EX.ED.DYSGE1 ---
HPI History of Present Illness Chief Complaint: General Illness Informant: patient Onset/Context/Timing Onset: Today Context: Gradual Onset Timing: Continuous Quality: Hoarse Location: Throat Worsened by: At night Relieved by: Nothing Narrative Narrative: Patient presents with sore throat and cough that began today. Patient states she was recently on doxycycline and steroids for COPD exacerbation. Patient states she finished her steroids yesterday and finished her doxycycline today. Patient states she still has some pain in her throat. Patient describes as a hoarse feeling. Patient states it is worse at night. Patient states she is coughing up some clear and white sputum. Patient admits to some subjective chills. Patient admits to some nausea but denies any vomiting. Patient also admits to some dysuria. Patient is concerned that she may have a urinary tract infection. [facility] Medical History Alcohol use Cardiac arrest Cardiology follow-up encounter CHF (congestive heart failure) COPD (chronic obstructive pulmonary disease) Decreased left ventricular function Diabetes Dietary restriction Diverticulosis DKA (diabetic ketoacidosis) Easy bruising Emphysema lung Emphysema, unspecified Essential hypertension Fall Gastric reflux Gout Heart attack High cholesterol History of edema History of pain when walking History of ulceration Hypothyroid Injury of back Insomnia Iron deficiency anemia Kidney failure Lichen sclerosus Macular degeneration Major depression Migraine Neuropathy Neuropathy On home oxygen therapy Paroxysmal atrial fibrillation Pericardial effusion with cardiac tamponade PVD (peripheral vascular disease) Rash Schizoaffective disorder, bipolar type Seizures Substance abuse Vapes nicotine containing substance Wears dentures Wears glasses Home Medications apixaban 5 mg tablet (Eliquis) 5 mg PO BID 12/24/22 [History Last Taken Unknown] aripiprazole 5 mg tablet (Abilify) 5 mg PO QHS 12/24/22 [History Last Taken 01/07/23] atorvastatin 20 mg tablet 20 mg PO DAILY 12/24/22 [History Last Taken Unknown] benazepril 5 mg tablet 5 mg PO DAILY 12/24/22 [History Last Taken 01/07/23] budesonide 90 mcg/actuation breath activated powder inhaler 2 inh inhalation BID 12/24/22 [History Last Taken Unknown] empagliflozin 10 mg tablet (Jardiance) 10 mg PO DAILY 12/24/22 [History Last Taken Unknown] famotidine 10 mg tablet 20 mg PO DAILY 12/24/22 [History Last Taken 01/07/23] fluoxetine 20 mg capsule 20 mg PO DAILY 12/24/22 [History Last Taken Unknown] furosemide 20 mg tablet (Lasix) 20 mg PO DAILY 12/24/22 [History Last Taken Unknown] levothyroxine 100 mcg capsule 100 mcg PO DAILY 12/24/22 [History Last Taken 01/07/23] naloxegol 25 mg tablet (Movantik) 25 mg PO QAM 12/24/22 [History Last Taken Unknown] sucralfate 100 mg/mL oral suspension (Carafate) 10 ml PO BID 12/24/22 [History Last Taken Unknown] baclofen 10 mg tablet 10 mg PO TID muscle spasm 12/25/22 [History Last Taken Unknown] divalproex 500 mg tablet,delayed release (Depakote) 500 mg PO QHS 12/25/22 [History Last Taken Unknown] dulaglutide 1.5 mg/0.5 mL subcutaneous pen injector (Trulicity) 0.75 mg subcut QWEEK 12/25/22 [History Last Taken Unknown] gabapentin 300 mg capsule 300 mg PO .QID 12/25/22 [History Last Taken 01/07/23] albuterol sulfate 90 mcg/actuation aerosol inhaler 1 inh inhalation PRN PRN shortness of breath or wheezing 12/31/22 [History Last Taken Unknown] loperamide 2 mg capsule 2 mg PO Q4H PRN loose stool 01/01/23 [History Last Taken Unknown] meloxicam 7.5 mg tablet 7.5 mg PO DAILY 01/01/23 [History Last Taken Unknown] ondansetron HCl 8 mg tablet 8 mg PO PRN NAUSEA 01/01/23 [History Last Taken Unknown] tizanidine 4 mg tablet 4 mg PO DAILY 01/01/23 [History Last Taken 01/07/23] trazodone 100 mg tablet 100 mg PO QHS 01/01/23 [History Last Taken Unknown] Allergy/AdvReac Type Severity Reaction Status Date / Time aspirin Allergy Mild Hives Verified 02/21/23 16:34 erythromycin base Allergy Mild Hives Verified 02/21/23 16:34 Penicillins Allergy Mild Hives Verified 02/21/23 16:34 polyethylene glycol 3350 Allergy Mild Nausea/Vom/ Verified 02/21/23 16:34 [From Miralax] Diarrhea tramadol Allergy Mild Hives Verified 02/21/23 16:34 tomatoes Allergy unknown Uncoded 01/18/23 09:39 Family History (Updated 12/25/22 @ 12:04 by Lindsey Pitts RN) Mother Heart disease Hypertension Cancer Father Brain aneurysm age 40 CVA (cerebral vascular accident) Cancer Brother Colon cancer Surgical History H/O: hysterectomy History of bilateral cataract extraction History of delivery History of cholecystectomy History of lithotripsy Hx of toe surgery Hx of vein stripping Social History Smoking Status: Current every day smoker tobacco type: cigarettes and e-cigarettes Tobacco: How many years used: 18 Electronic Cigarette Use: with nicotine second hand exposure: No alcohol intake: never substance use type: does not use caffeine: Yes ROS ROS ED Constitutional Constitutional ED: Reports chills and subjective; Denies fever(s) Eyes Eyes: Denies blurry vision or change in vision ENT ENT ED: Reports sore throat; Denies rhinorrhea Cardiovascular Cardiovascular: Reports chest pain; Denies palpitations Respiratory/Chest Respiratory/Chest: Reports cough; Denies dyspnea Gastrointestinal Gastrointestinal: Reports nausea; Denies vomiting Genitourinary Genitourinary ED: Reports dysuria; Denies hematuria Musculoskeletal Musculoskeletal: Reports back pain; Denies neck pain Integumentary Denies abscess or rash Neurologic Neurologic: Reports headache(s); Denies weakness Allergic/Immunologic Allergic/Immunologic ED: Denies mouth swelling or urticaria EXAM Physical Exam Const Vital Signs: 02/21/23 16:33 02/21/23 18:55 02/21/23 19:02 Temperature 97.1 F L 97.6 F L Temperature Source Temporal Temporal Pulse Rate 79 79 Respiratory Rate 17 16 Respiratory Effort Short of Breath Respiratory Pattern Normal Blood Pressure 108/55 L 108/72 Blood Pressure Mean 72 84 Pulse Ox 98 98 Oxygen Delivery Method Room Air Room Air Positive well nourished and well developed General Appearance ED: well developed and NAD HEENT Reports moist mucous membranes HEENT Narrative: Oropharynx is mildly erythematous. There is no exudate noted. There are some mild postnasal drainage. Neck no lymphadenopathy, supple and no JVD Resp normal respiratory effort and clear to auscultation bilaterally Cardio regular rate and regular rhythm GI non-tender and non-distended Palpation: soft Neuro oriented x3, CN's II-XII intact bilaterally and no sensory deficits noted Sensorium / Orientation: alert Motor Exam: strength 5/5 throughout Psych mental status grossly normal MDM MDM MDM Narrative Medical decision making narrative: Differential diagnosis includes cardiac dysrhythmia, cardiac ischemia, pneumonia, pneumothorax, COVID-19 infection, influenza infection, and viral infection. EKG will be obtained to assess for cardiac dysrhythmia and cardiac ischemia. Chest x-ray will be obtained to assess for pneumonia and pneumothorax. COVID-19 rapid antigen will be obtained to assess for COVID-19 infection. Influenza A and influenza B antigens will be obtained to assess for influenza infection. Lab Data Lab results narrative: COVID-19 rapid antigen was reviewed and was negative. Influenza A and influenza B antigens were reviewed and were negative. Radiography Diagnostic Testing: Clinical Impression(s) from Imaging Studies Chest X-Ray 02/21/23 19:30 IMPRESSION: No acute findings in the chest. Electronically Signed: Ga Venegas MD at 19:51 EST Reading Location ID and State: [facility] / [place] , [place] , [place] and lateral chest x-ray was obtained. There are 2 views. On my independent interpretation, lung boyd are clear. There is normal cardiac silhouette. Bony thorax is normal. There is no acute process noted. Radiologist also interpreted the x-ray and agrees. EKG Initial EKG: Attestation: I personally reviewed and interpreted this EKG as follows: Interpretation: Sinus Rhythm (68) and No Acute Injury Pattern Comments: EKG was obtained. On my independent interpretation, it showed a normal sinus rhythm with a rate of 68. CT interval, QRS interval, and QTc intervals were all normal. [place] was normal. There are no acute ST or T wave changes. Prior EKG tracings: available for review Prior: Unchanged (01/05/2023) Treatment and Re-Evaluation :: Patient was advised of her findings. Patient was advised that this is most likely a viral upper respiratory infection. Patient was instructed to drink plenty of fluids. Patient was instructed to take Tylenol or ibuprofen as needed for any pain or fevers. Patient was instructed to follow-up with her primary care physician in 5 to 7 days. Patient understood and was agreeable with the plan. All questions were answered. Discharge Plan Triage Chief Complaint: General Illness ED Provider: Goldy Thomas Dx/Rx/DC Orders Clinical Impression: Viral upper respiratory infection, Schizoaffective disorder, bipolar type, Diabetes, Chronic kidney disease Instructions: ED URI, Viral, No Abx (Adult) Prescriptions: No Action aripiprazole [Abilify] 5 mg tablet 5 mg PO QHS Hold Instructions: Resume on 01/08/23. atorvastatin 20 mg tablet 20 mg PO DAILY benazepril 5 mg tablet 5 mg PO DAILY budesonide 90 mcg/actuation aerosol powdr breath activated 2 inh inhalation BID Eliquis 5 mg tablet 5 mg PO BID famotidine 10 mg tablet 20 mg PO DAILY fluoxetine 20 mg capsule 20 mg PO DAILY furosemide [Lasix] 20 mg tablet 20 mg PO DAILY Jardiance 10 mg tablet 10 mg PO DAILY levothyroxine 100 mcg capsule 100 mcg PO DAILY sucralfate [Carafate] 100 mg/mL suspension 10 ml PO BID Movantik 25 mg tablet 25 mg PO QAM Rx Instructions: must be taken on empty stomach; no food 1 hr after or 2-3 hrs before dose divalproex [Depakote] 500 mg tablet,delayed release (DR/EC) 500 mg PO QHS Trulicity 1.5 mg/0.5 mL pen injector 0.75 mg subcut QWEEK baclofen 10 mg tablet 10 mg PO TID gabapentin 300 mg capsule 300 mg PO .QID albuterol sulfate 90 mcg/actuation HFA aerosol inhaler 1 inh INHALATION PRN PRN (Reason: shortness of breath or wheezing) trazodone 100 mg tablet 100 mg PO QHS Patient Comments: TAKE 1 TABLET BY MOUTH EVERY DAY AT NIGHT tizanidine 4 mg tablet 4 mg PO DAILY Patient Comments: TAKE 1 TABLET BY MOUTH EVERY DAY meloxicam 7.5 mg tablet 7.5 mg PO DAILY Patient Comments: TAKE 1 TABLET BY MOUTH EVERY DAY FOR 30DAYS ON A FULL STOMACH ondansetron HCl 8 mg tablet 8 mg PO PRN Patient Comments: TAKE ONE TABLET BY MOUTH TWICE DAILY FOR NAUSEA AND VOMITING loperamide 2 mg capsule 2 mg PO Q4H PRN (Reason: loose stool) Patient Comments: TAKE ONE CAPSULE BY MOUTH THREE TIMES DAILY NEEDED FOR DIARRHEA Primary Care Provider: Eric Marion Referrals: Eric Marion, [employer] [Primary Care Provider] - 5-7 Days Disposition Disposition: Home, Self Care
--- NOTE | 2023-02-21 19:30 | RAD_ITS ---
EXAM: XR CHEST, 2 VIEWS CLINICAL INDICATION: Cough TECHNIQUE: Frontal and lateral views of the chest. COMPARISON: 01/07/2023 FINDINGS: LUNGS AND PLEURAL SPACES: Unremarkable. No consolidation or edema. No pneumothorax. No effusion. HEART: Unremarkable. Cardiac silhouette not enlarged. MEDIASTINUM: Central airways and mediastinal contour are unremarkable. BONES/JOINTS: Unremarkable. No acute fracture. SOFT TISSUES: Unremarkable. TUBES, LINES AND DEVICES: There is a right Port-A-Cath and/or mediport in place. The tip is in the superior vena cava. RAD/Chest PA and Lateral IMPRESSION: No acute findings in the chest. Electronically Signed: Ga Venegas MD at 19:51 EST ,
== END 2023-02-21 20:39 | disposition home or self-care (01) ==
PROVIDERS: Emergency Provider Emergency Medicine; PCP Nurse Practitioner Family; Referring Provider Emergency Medicine; Visit Provider Emergency Medicine
DX: J06.9 Acute upper respiratory infection, unspecified (principal); F25.0 Schizoaffective disorder, bipolar type; J43.9 Emphysema, unspecified; I13.0 Hypertensive heart and chronic kidney disease with heart failure and stage 1 through stage 4 chronic kidney disease, or unspecified chronic kidney disease; I50.9 Heart failure, unspecified; E11.40 Type 2 diabetes mellitus with diabetic neuropathy, unspecified; E11.22 Type 2 diabetes mellitus with diabetic chronic kidney disease; F17.210 Nicotine dependence, cigarettes, uncomplicated; E78.00 Pure hypercholesterolemia, unspecified; N18.9 Chronic kidney disease, unspecified; F17.290 Nicotine dependence, other tobacco product, uncomplicated; R30.0 Dysuria; R51.9 Headache, unspecified
CPT/HCPCS: 71046; 87428; 93005; 99284

== ENCOUNTER 2023-02-27 06:12 | Emergency (ER) | payer MEDICARE, MEDICAID, SELFPAY ==
[2023-02-27 06:14] VITALS: BP 155/86; PULSE 95; RESP 16; TEMP 36.1; O2SAT 95; BMI 35.4
--- NOTE | 2023-02-27 07:16 | EKG12_ITS ---
Test Reason : N/V Blood Pressure : / mmHG Vent. Rate : 080 BPM Atrial Rate : 080 BPM P-R Int : 138 ms QRS Dur : 068 ms QT Int : 368 ms P-R-T Axes : -26 045 052 degrees QTc Int : 424 ms Sinus rhythm with Premature atrial complexes Otherwise normal ECG Confirmed by TISHA HERRING, AMMON ([id number]), website/blog editor CHINTAN KHAN ([id number]) on 03/09/2023 8:47:38 AM Referred By: Confirmed By:AMMON GILES MD
--- NOTE | 2023-02-27 07:18 | EX.ED.DYSGE1 ---
HPI History of Present Illness Chief Complaint: Nausea/Vomiting Informant: patient and EMS Narrative Narrative: 62-year-old female presenting to the emergency room with vomiting and cough. Patient is a poor historian and often leaves out details or contradicts her statements. From what I am able to elucidate from her she has had a cough for greater than a week. She states that she was on steroids which she finished a few days ago. She was seen in the emergency department last week and tested negative for COVID. She states that she took a another COVID test last night that was negative. She has emphysema and notes the cough has not improved. She notes phlegm production which either started a couple weeks ago or yesterday. She notes last night she had vomiting and this morning dry heaves. She notes she is a type II diabetic. She notes some constipation. She notes some right-sided abdominal pain that began late last night into this morning. She states that EMS told her she had a temperature of 100. She is 98.6 orally on my exam. [facility] Medical History Alcohol use Cardiac arrest Cardiology follow-up encounter CHF (congestive heart failure) COPD (chronic obstructive pulmonary disease) Decreased left ventricular function Diabetes Dietary restriction Diverticulosis DKA (diabetic ketoacidosis) Easy bruising Emphysema lung Emphysema, unspecified Essential hypertension Fall Gastric reflux Gout Heart attack High cholesterol History of edema History of pain when walking History of ulceration Hypothyroid Injury of back Insomnia Iron deficiency anemia Kidney failure Lichen sclerosus Macular degeneration Major depression Migraine Neuropathy Neuropathy On home oxygen therapy Paroxysmal atrial fibrillation Pericardial effusion with cardiac tamponade PVD (peripheral vascular disease) Rash Schizoaffective disorder, bipolar type Seizures Substance abuse Vapes nicotine containing substance Wears dentures Wears glasses Home Medications apixaban 5 mg tablet (Eliquis) 5 mg PO BID 12/24/22 [History Last Taken Unknown] aripiprazole 5 mg tablet (Abilify) 5 mg PO QHS 12/24/22 [History Last Taken 01/07/23] atorvastatin 20 mg tablet 20 mg PO DAILY 12/24/22 [History Last Taken Unknown] benazepril 5 mg tablet 5 mg PO DAILY 12/24/22 [History Last Taken 01/07/23] budesonide 90 mcg/actuation breath activated powder inhaler 2 inh inhalation BID 12/24/22 [History Last Taken Unknown] empagliflozin 10 mg tablet (Jardiance) 10 mg PO DAILY 12/24/22 [History Last Taken Unknown] famotidine 10 mg tablet 20 mg PO DAILY 12/24/22 [History Last Taken 01/07/23] fluoxetine 20 mg capsule 20 mg PO DAILY 12/24/22 [History Last Taken Unknown] furosemide 20 mg tablet (Lasix) 20 mg PO DAILY 12/24/22 [History Last Taken Unknown] levothyroxine 100 mcg capsule 100 mcg PO DAILY 12/24/22 [History Last Taken 01/07/23] naloxegol 25 mg tablet (Movantik) 25 mg PO QAM 12/24/22 [History Last Taken Unknown] sucralfate 100 mg/mL oral suspension (Carafate) 10 ml PO BID 12/24/22 [History Last Taken Unknown] baclofen 10 mg tablet 10 mg PO TID muscle spasm 12/25/22 [History Last Taken Unknown] divalproex 500 mg tablet,delayed release (Depakote) 500 mg PO QHS 12/25/22 [History Last Taken Unknown] dulaglutide 1.5 mg/0.5 mL subcutaneous pen injector (Trulicity) 0.75 mg subcut QWEEK 12/25/22 [History Last Taken Unknown] gabapentin 300 mg capsule 300 mg PO .QID 12/25/22 [History Last Taken 01/07/23] albuterol sulfate 90 mcg/actuation aerosol inhaler 1 inh inhalation PRN PRN shortness of breath or wheezing 12/31/22 [History Last Taken Unknown] loperamide 2 mg capsule 2 mg PO Q4H PRN loose stool 01/01/23 [History Last Taken Unknown] meloxicam 7.5 mg tablet 7.5 mg PO DAILY 01/01/23 [History Last Taken Unknown] ondansetron HCl 8 mg tablet 8 mg PO PRN NAUSEA 01/01/23 [History Last Taken Unknown] tizanidine 4 mg tablet 4 mg PO DAILY 01/01/23 [History Last Taken 01/07/23] trazodone 100 mg tablet 100 mg PO QHS 01/01/23 [History Last Taken Unknown] ciprofloxacin HCl 500 mg tablet 500 mg PO BID #14 TABLETS 02/27/23 [Rx Last Taken Unknown] metronidazole 500 mg tablet 500 mg PO Q8H #21 tabs 02/27/23 [Rx Last Taken Unknown] ondansetron 4 mg disintegrating tablet 4 mg PO Q8H PRN PRN Nausea #10 tabs 02/27/23 [Rx Last Taken Unknown] Allergy/AdvReac Type Severity Reaction Status Date / Time aspirin Allergy Mild Hives Verified 02/27/23 06:12 erythromycin base Allergy Mild Hives Verified 02/27/23 06:12 Penicillins Allergy Mild Hives Verified 02/27/23 06:12 polyethylene glycol 3350 Allergy Mild Nausea/Vom/ Verified 02/27/23 06:12 [From Miralax] Diarrhea tramadol Allergy Mild Hives Verified 02/27/23 06:12 tomatoes Allergy unknown Uncoded 01/18/23 09:39 Family History Mother Heart disease Hypertension Cancer Father Brain aneurysm age 40 CVA (cerebral vascular accident) Cancer Brother Colon cancer Surgical History H/O: hysterectomy History of bilateral cataract extraction History of delivery History of cholecystectomy History of lithotripsy Hx of toe surgery Hx of vein stripping Social History Smoking Status: Current every day smoker tobacco type: cigarettes and e-cigarettes Tobacco: How many years used: 18 Electronic Cigarette Use: with nicotine second hand exposure: No alcohol intake: never substance use type: does not use caffeine: Yes ROS ROS ED Constitutional Constitutional ED: Reports chills, fever(s) and subjective; Denies weight loss Eyes Eyes: Denies change in vision or diplopia ENT ENT ED: Denies ear pain, rhinorrhea or sore throat Cardiovascular Cardiovascular: Denies chest pain, orthopnea, palpitations or racing heartbeat Respiratory/Chest Respiratory/Chest: Reports cough, dyspnea, dyspnea on exertion and sputum; Denies orthopnea Gastrointestinal Gastrointestinal: Reports abdominal pain, constipation, nausea and vomiting; Denies diarrhea Genitourinary Genitourinary ED: Denies dysuria, hematuria or urinary frequency Musculoskeletal Musculoskeletal: Reports myalgias; Denies arthralgias Integumentary Denies abscess or rash Neurologic Neurologic: Denies headache(s) or weakness Psychiatric Psychiatric: Denies anxiety, depression, suicidal ideation or suicidal thoughts Endocrine Endocrinology: Denies polydipsia, polyphagia or polyuria Allergic/Immunologic Allergic/Immunologic ED: Denies mouth swelling, tongue swelling or urticaria EXAM Physical Exam Const Vital Signs: 02/27/23 06:14 02/27/23 07:39 02/27/23 12:05 Temperature 97 F L 98.6 F Temperature Source Temporal Temporal Pulse Rate 95 86 95 Respiratory Rate 16 19 H 18 Respiratory Pattern Normal Blood Pressure 155/86 H 133/61 H Blood Pressure Mean 109 85 Pulse Ox 95 94 Oxygen Delivery Method Room Air Positive well nourished and well developed General Appearance ED: well developed HEENT Reports normocephalic, head/scalp atraumatic and moist mucous membranes Eyes PERRL and EOMs intact bilaterally Neck no lymphadenopathy, supple and no JVD Resp normal respiratory effort Auscultation: rhonchi and wheezes expiratory wheezes Cardio regular rate, regular rhythm and no murmurs GI Inspection: Negative for abdominal distention Auscultation: normoactive bowel sounds Palpation: soft and tender other (Right upper middle and lower quadrant tenderness. No guarding or rebound tenderness noted.) Back/Spine no CVA tenderness and normal ROM Extremity normal to inspection General Extremety ED: Negative for edema General Extremity: Negative for edema Neuro oriented x3 and CN's II-XII intact bilaterally Sensorium / Orientation: alert Motor Exam: strength 5/5 throughout Psych mental status grossly normal Mood & Affect: Negative for depressed or tearful Skin no rashes or lesions noted and no wounds MDM MDM MDM Narrative Medical decision making narrative: White count returns at 11.1. Nonspecific and could be multifactorial. Creatinine 1.43 with a BUN of 32. Normal sodium and potassium. Anion gap of 2. Lipase 29 normal liver enzymes. BNP at 18. Urinalysis showed overt infection. My independent interpretation of the chest x-ray is no acute process. RSV COVID and influenza were negative. Patient received a breathing treatment and Zofran. CT abdomen pelvis was obtained due to the abdominal pain/vomiting and the slightly elevated white count. This demonstrated some mild changes of possible diverticulitis in the sigmoid region. There are some free fluid noticed around the liver and the spleen and in the pelvis. There is a questionable area in the small bowel in the left mid and lower abdomen of which radiology is concern is for possible focal obstruction. Patient's abdomen I would not classify it at this time as surgical. Not distended. And her pain was more right-sided than left. I did speak with on-call surgeon Dr. Moore who will be in to evaluate the patient. Dr. Moore and I conferred. She passed p.o. challenge. Clinically I do not think the patient has a bowel obstruction. We are going to write for [facility] Chase due to penicillin allergy for diverticulitis. Because of the potential for diverticular complications not going to use any steroids for the breathing at this point. Patient should continue her albuterol. Follow-up with primary care return if worsening or concerns. History & Record Review Discussion w/independent historian: Patient Additional record(s) reviewed:: Prior inpatient record, Prior outpatient record, Prior ED visit and Prior labs Lab Data Attestation: I reviewed the patient's lab results. Labs: Laboratory Results - last 24 hr 02/27/23 02/27/23 07:28 08:30 WBC 11.1 H RBC 4.64 Hgb 13.2 Hct 42.1 MCV 90.7 MCH 28.4 MCHC 31.4 L RDW Std Deviation 45.8 H RDW Coeff of Penny 13.9 Plt Count 167 MPV 9.6 Immature Gran % (Auto) 0.600 Neut % (Auto) 85.1 H Lymph % (Auto) 6.6 L [place] % (Auto) 6.1 Eos % (Auto) 1.1 Baso % (Auto) 0.5 Absolute Neuts (auto) 9.5 H Absolute Lymphs (auto) 0.73 L Nucleated RBC % 0 Sodium 137 Potassium 4.5 Chloride 105 Carbon Dioxide 30.0 Anion Gap 2 L BUN 32 H Creatinine 1.43 H Estim Creat Clear Calc 33.31 Est GFR (MDRD) Af Amer 48 L Est GFR (MDRD) Non-Af 39 L BUN/Creatinine Ratio 22.4 H Glucose 157 H Calcium 9.5 Total Bilirubin 0.40 AST 17 ALT 21 Alkaline Phosphatase 59 B-Natriuretic Peptide 18.1 Total Protein 6.2 L Albumin 2.7 L Globulin 3.5 Albumin/Globulin Ratio 0.8 L Lipase 29 Urine Color Yellow Urine Clarity Clear Urine pH 6.0 Ur Specific [place] 1.020 Urine Protein 15 H Urine Glucose (UA) 1000 H Urine Ketones Negative Urine Occult Blood Negative Urine Nitrite Negative Urine Bilirubin Negative Urine Urobilinogen Normal Ur Leukocyte Esterase 25 H Urine RBC 0 SEEN Urine WBC 0 SEEN Ur Squamous Epith Cells 0 SEEN Urine Bacteria 0 SEEN Urine Mucus 0 SEEN Valproic Acid 16 L Radiography Diagnostic Testing: Clinical Impression(s) from Imaging Studies Chest X-Ray 02/27/23 07:44 IMPRESSION: No acute pulmonary process Electronically Signed: Richard Lucio MD at 8:27 EST , Abdomen/Pelvis CT 02/27/23 09:54 IMPRESSION: There is an abnormal appearing small bowel loop in the left mid and lower abdomen with submucosal thickening and inflammatory stranding suggesting a focal obstruction. This could be due to adhesions from previous surgery. Surgical consultation recommended. Extensive sigmoid diverticula with some mucosal thickening of the sigmoid and a minimal amount of perisigmoidal inflammatory stranding suggesting diverticulitis is likely present within the sigmoid colon. No perforation or abscess is noted. Diffuse free fluid around the periphery of the liver and spleen and into the pelvis without evidence of hepatic abnormality. The free fluid is likely due to a combination of the abnormal small bowel loop described above and the sigmoid diverticulitis. No suspicious solid organ abnormality, previous cholecystectomy Small right pleural effusion Electronically Signed: Richard Lucio MD at 11:05 EST , EKG Initial EKG: Attestation: I personally reviewed and interpreted this EKG as follows: Comments: Sinus rhythm with a ventricular rate of 80 bpm. PAC noted. Discharge Plan Triage Chief Complaint: Nausea/Vomiting ED Provider: Neil Leal Dx/Rx/DC Orders Clinical Impression: Acute viral syndrome, Asthma exacerbation in COPD, Abdominal pain, Vomiting, Diverticulitis Instructions: ED Diverticulitis, ED Vomiting (Adult) Prescriptions: New metronidazole [metronidazole] 500 mg tablet 500 mg PO Q8H Qty: 21 0RF ciprofloxacin HCl [ciprofloxacin HCl] 500 mg tablet 500 mg PO BID Qty: 14 0RF ondansetron [ondansetron] 4 mg tablet,disintegrating 4 mg PO Q8H PRN PRN (Reason: Nausea) Qty: 10 0RF No Action aripiprazole [Abilify] 5 mg tablet 5 mg PO QHS Hold Instructions: Resume on 01/08/23. atorvastatin 20 mg tablet 20 mg PO DAILY benazepril 5 mg tablet 5 mg PO DAILY budesonide 90 mcg/actuation aerosol powdr breath activated 2 inh inhalation BID Eliquis 5 mg tablet 5 mg PO BID famotidine 10 mg tablet 20 mg PO DAILY fluoxetine 20 mg capsule 20 mg PO DAILY furosemide [Lasix] 20 mg tablet 20 mg PO DAILY Jardiance 10 mg tablet 10 mg PO DAILY levothyroxine 100 mcg capsule 100 mcg PO DAILY sucralfate [Carafate] 100 mg/mL suspension 10 ml PO BID Movantik 25 mg tablet 25 mg PO QAM Rx Instructions: must be taken on empty stomach; no food 1 hr after or 2-3 hrs before dose divalproex [Depakote] 500 mg tablet,delayed release (DR/EC) 500 mg PO QHS Trulicity 1.5 mg/0.5 mL pen injector 0.75 mg subcut QWEEK baclofen 10 mg tablet 10 mg PO TID gabapentin 300 mg capsule 300 mg PO .QID albuterol sulfate 90 mcg/actuation HFA aerosol inhaler 1 inh INHALATION PRN PRN (Reason: shortness of breath or wheezing) trazodone 100 mg tablet 100 mg PO QHS Patient Comments: TAKE 1 TABLET BY MOUTH EVERY DAY AT NIGHT tizanidine 4 mg tablet 4 mg PO DAILY Patient Comments: TAKE 1 TABLET BY MOUTH EVERY DAY meloxicam 7.5 mg tablet 7.5 mg PO DAILY Patient Comments: TAKE 1 TABLET BY MOUTH EVERY DAY FOR 30DAYS ON A FULL STOMACH ondansetron HCl 8 mg tablet 8 mg PO PRN Patient Comments: TAKE ONE TABLET BY MOUTH TWICE DAILY FOR NAUSEA AND VOMITING loperamide 2 mg capsule 2 mg PO Q4H PRN (Reason: loose stool) Patient Comments: TAKE ONE CAPSULE BY MOUTH THREE TIMES DAILY NEEDED FOR DIARRHEA Primary Care Provider: Eric Marion Referrals: Eric Marion, [employer] [Primary Care Provider] - 3-5 Days if not improving Disposition Disposition: Home, Self Care Discharge Date/Time: 02/27/23 14:20
[2023-02-27] MEDS: Ondansetron 4 MG/2 ML Vial IV (07:27)
[2023-02-27] MEDS: Ipratropium/Albuterol Sulfate 3 ML AMPUL.NEB INHALATION (07:38)
[2023-02-27 07:39] VITALS: PULSE 86; RESP 19
[2023-02-27 07:39] LABS: Absolute Lymphocyte Count 0.73 X10^3/uL (0.83-4.51); Absolute Neutrophil Count 9.5 X10^3/uL (2.0-7.7); Basophil# 0.05 X10^3/uL; Basophil% 0.5 % (0-1); Eosinophil# 0.12 X10^3/uL; Eosinophils% 1.1 % (0-5); Hematocrit 42.1 % (37-47); Hemoglobin 13.2 g/dL (12.0-15.0); Lymphocyte # 0.73 X10^3/ul (0.83-4.51); Lymphocyte % 6.6 % (19-41); Mean Corp Hgb Conc 31.4 g/dL (32-36); Mean Corpuscular Hgb 28.4 pg (27.0-32.0); Mean Corpuscular Volume 90.7 fL (81-99); Mean Platelet Vol. 9.6 fl (6.2-12.0); Monocyte# 0.68 X10^3/uL; Monocyte% 6.1 % (0-10); NRBC Flagged by Analyzer 0 % (0-5); Neutrophil # 9.46 X10^3/uL (2.7-7.7); Neutrophil % 85.1 % (47-70); Platelet Count 167 K/mm3 (150-450); RBC Distribution Width CV 13.9 % (11.6-14.6); RBC Distribution Width SD 45.8 fl (35.1-43.9); Red Blood Count 4.64 M/mm3 (4.2-5.4); White Blood Count 11.1 K/mm3 (4.4-11.0)
--- NOTE | 2023-02-27 07:44 | RAD_ITS ---
STUDY: X-RAY CHEST REASON FOR EXAM: Female, 62 years old. cough TECHNIQUE: Single AP portable view of the chest. COMPARISON: 02/21/2023 FINDINGS: EKG leads overlie the chest, stable appearance of a right subclavian port The lungs are clear and expanded. There is no demonstrated pleural abnormality. Normal size heart. Normal mediastinum and jeannie. Normal visualized pulmonary arteries. Normal visualized aortic arch and descending thoracic aorta. Normal visualized thoracic spine. Normal visualized ribs, clavicles, and shoulders. There is no demonstrated abnormality of the visualized soft tissue structures of the upper abdomen. RAD/Chest 1 View (Portable) IMPRESSION: No acute pulmonary process Electronically Signed: Richard Lucio MD at 8:27 EST ,
[2023-02-27 07:53] LABS: Valproic Acid (Depakene) Level 16 ug/mL (50-100)
[2023-02-27 07:56] LABS: ALB/GLOB Ratio 0.8 RATIO (0.9-2.4); AST(SGOT) 17 U/L (15-37); Alanine Aminotransfer ALT/SGPT 21 U/L (13-56); Albumin, Serum 2.7 g/dL (3.2-5.0); Alkaline Phosphatase 59 U/L (45-117); Anion Gap 2 (5-15); BUN 32 mg/dL (7-18); BUN/Creat Ratio 22.4 RATIO (10-20); Calcium,Total 9.5 mg/dL (8.5-10.1); Chloride 105 mmol/L (98-107); Creatinine, Serum 1.43 mg/dL (0.55-1.02); EST Glomerular Filtration Rate 39 mL/min (>60); Est Glom Filt Rate - Afr Amer 48 mL/min (>60); Estimated Creatinine Clearance 33.31 ml/min; Globulin 3.5 g/dL (2.2-4.2); Glucose 157 mg/dL (74-106); Lipase 29 U/L (13-75); Potassium 4.5 mmol/L (3.5-5.1); Protein, Total 6.2 g/dL (6.4-8.2); Sodium Level 137 mmol/L (136-145)
[2023-02-27 08:38] LABS: Bacteria 0 SEEN /hpf (None Seen); Mucous, Urine 0 SEEN /hpf (<or=2+); Red Blood Cells-Urine 0 SEEN /hpf (0-5); Squamous Epithelial Cells - UA 0 SEEN /hpf (5-10); White Blood Cells 0 SEEN /hpf (0-5)
[2023-02-27 08:58] LABS: Color, Urine Yellow (Yellow); Glucose, Dipstick 1000 mg/dl (Normal); Ketone-Dipstick Negative (Negative); Leukocyte Esterase-Dipstick 25 /ul (Negative); Nitrite-Dipstick Negative (Negative); Occult Blood-Urine Negative /ul (Negative); Protein-Dipstick 15 mg/dl (Negative); Urine Bilirubin Dipstick Negative (Negative); Urine Clarity Clear (Clear); Urine Urobilinogen Normal (Normal)
--- NOTE | 2023-02-27 09:54 | CT_ITS ---
STUDY: CT ABDOMEN AND PELVIS WITH CONTRAST REASON FOR EXAM: Female, 62 years old. abdominal pain RADIATION DOSAGE (If Supplied By Facility): CTDIvol = ( 16.24 ) mGy, DLP = ( 1039.38 ) mGycm TECHNIQUE: Transaxial images were obtained from the dome of the diaphragm to the symphysis pubis without oral contrast. IV 100mL [id number]-[id number] was administered. Sagittal and coronal images were reconstructed. Individualized dose optimization techniques were used for this CT. COMPARISON: None. FINDINGS: The visualized lung bases are unremarkable aside from a small right pleural effusion. The visualized portions of the heart are within normal limits. Liver is unremarkable. There are surgical clips in the gallbladder fossa consistent with a prior cholecystectomy. Normal spleen. Normal pancreas. There is a small amount of ascites around the periphery of the liver and spleen. Normal bilateral adrenal glands. Normal right kidney. Normal left kidney. Normal visualized stomach. There are nondistended fluid-filled small bowel loops suggestive of ileus but there is a abnormal appearing fluid distended and thickened small bowel loop in the left mid abdomen with pericolonic inflammatory stranding which is most likely due to obstruction. There may be adhesions from previous surgery. This is most notably seen on axial images 62 through 80. Surgical consultation recommended Retained stool noted throughout the majority of the colon. Scattered colonic diverticula are noted particularly in the sigmoid colon there is extensive diverticulosis in the sigmoid with subtle nonspecific thickening of the sigmoid and there is a small amount of perisigmoidal inflammation suggesting there may be sigmoid diverticulitis as well. There is no perforation or abscess. Appendix seen on coronal recon images 33 through 44. Normal abdominal aorta. Normal inferior vena cava. Normal retroperitoneum. Normal urinary bladder. There is absence of the uterus consistent with a prior hysterectomy. Normal abdominal wall. There are diffuse degenerative changes of the visualized lumbar spine, and pelvis. CT/Abdomen/Pelvis W IV Cont ONLY IMPRESSION: There is an abnormal appearing small bowel loop in the left mid and lower abdomen with submucosal thickening and inflammatory stranding suggesting a focal obstruction. This could be due to adhesions from previous surgery. Surgical consultation recommended. Extensive sigmoid diverticula with some mucosal thickening of the sigmoid and a minimal amount of perisigmoidal inflammatory stranding suggesting diverticulitis is likely present within the sigmoid colon. No perforation or abscess is noted. Diffuse free fluid around the periphery of the liver and spleen and into the pelvis without evidence of hepatic abnormality. The free fluid is likely due to a combination of the abnormal small bowel loop described above and the sigmoid diverticulitis. No suspicious solid organ abnormality, previous cholecystectomy Small right pleural effusion Electronically Signed: Richard Lucio MD at 11:05 EST ,
[2023-02-27 12:04] LABS: BNP,B-Type NATRIURETIC PEPTIDE 18.1 pg/mL (0-100)
[2023-02-27 12:05] VITALS: BP 133/61; PULSE 95; RESP 18; TEMP 37; O2SAT 94
--- NOTE | 2023-02-27 12:33 | CON.PCM.SX_ITS ---
Assessment & Plan Assessment/Plan (1) Abdominal pain: PLAN: This is a 62-year-old female who presents with right lower quadrant pain but CT imaging indicates possible pathology in the left lower quadrant with mild acute uncomplicated diverticulitis and some focal thickening of the small bowel. Patient repeatedly changes her mind as to which side is more tender during our exam and yet demonstrates no peritoneal signs. In my independent review of patient's imaging I do visualize the mildly thickened short segment of small bowel, but there is not evidence of an significant obstructive pattern with proximal bowel dilation or air-fluid levels. Additionally, I do not appreciate significant inflammatory changes of the sigmoid colon but I do confirm diverticulosis. When discussing patient's exam she states that her main concern was as to whether or not she had COVID. On hearing that she has been tested negative for this condition she shares she wishes to be discharged and feels ready to do so. (2) Vomiting: PLAN: Patient no longer experiencing vomiting, but I would want to see her tolerate liquids prior to discharge. If she is unable to tolerate oral intake and she may require an observational stay with IV fluid resuscitation. As above, I do not observe a obstructive pattern to her imaging. (3) Diverticulitis large intestine w/o perforation or abscess w/bleeding: PLAN: Patient is diagnosed with mild acute uncomplicated diverticulitis by CT imaging. In my independent review of patient's imaging this is subtle if at all present. I believe her recent steroid use makes it difficult to take much significance from her leukocytosis. Given the layering of her abdominal ascites I do not believe this simple fluid is connected to the diverticular process. Lastly, patient seems to be more symptomatic from right lower quadrant discomfort than left lower quadrant discomfort on exam. (4) Abdominal ascites: PLAN: This may represent an incidental finding. We have no comparison imaging to see if patient has had prior evidence of ascites. She denies any awareness of liver disease, but does have a remote history of alcohol abuse. Morpholo gically, her liver does not have a scalloped appearance that might be expected with cirrhosis. I did request a BNP be obtained to assess for any acute congestive heart failure that may better explain this ascites, however, this BNP level is within normal limits. Given patient's otherwise acceptable abdominal exam this issue could be followed up as an outpatient. PLAN: Plan Recommend: ? Diet challenging and that patient is able to demonstrate tolerance of oral intake ? Consideration of p.o. antibiotics for acute uncomplicated diverticulitis (r ecommend against additional steroids for her cough/COPD as she would recover from this issue) ? Patient given red flag warnings for an obstruction and return precautions if she is unable to tolerate liquids and remain hydrated ? Recommend follow-up with PCP in 1 to 2 weeks after ER evaluation HPI Consult Data Date of Consult: 02/27/23 HPI Narrative Reason for Consultation: Nausea and vomiting with associated abdominal pain HPI Narrative: JADE SAN, is a 62 F who presents to [facility] with complaints of cough, vomiting, and some right lower quadrant abdominal pain. She shares that he began throwing up food matter last night with a foul smell and then this became associated with some right lower quadrant abdominal pain. She also shares that she has been recently on steroids for a cough and earnestly wanted to know if she had COVID. She confirms that she has been having regular bowel function with 2-3 bowel movements per day. Patient's ER workup is notable for a mild leukocytosis of 11,[address] imaging shows evidence of focal thickening of the short segment of small bowel and some mild diverticulitis per radiology. Patient confirms a past surgical history of , cholecystectomy, and umbilical hernia repair. She also confirms a history of diverticulitis but has not required inpatient admission for this issue. She also confirms that she underwent a colonoscopy 2 years ago and was confirmed to have diverticulosis but no polyps. Ms. San has no past history of liver issues, but does confess to alcohol abuse in her 20s. She also confirms the medical record that she was admitted for 13 days to the ICU in [place] after experiencing cardiac arrest and required several sessions of dialysis due to acute renal failure. She remains on Eliquis for history of paroxysmal atrial fibrillation. [facility] Medical History Alcohol use Cardiac arrest Cardiology follow-up encounter CHF (congestive heart failure) COPD (chronic obstructive pulmonary disease) Decreased left ventricular function Diabetes Dietary restriction Diverticulosis DKA (diabetic ketoacidosis) Easy bruising Emphysema lung Emphysema, unspecified Essential hypertension Fall Gastric reflux Gout Heart attack High cholesterol History of edema History of pain when walking History of ulceration Hypothyroid Injury of back Insomnia Iron deficiency anemia Kidney failure Lichen sclerosus Macular degeneration Major depression Migraine Neuropathy Neuropathy On home oxygen therapy Paroxysmal atrial fibrillation Pericardial effusion with cardiac tamponade PVD (peripheral vascular disease) Rash Schizoaffective disorder, bipolar type Seizures Substance abuse Vapes nicotine containing substance Wears dentures Wears glasses Home Medications apixaban 5 mg tablet (Eliquis) 5 mg PO BID 12/24/22 [History Last Taken Unknown] aripiprazole 5 mg tablet (Abilify) 5 mg PO QHS 12/24/22 [History Last Taken 01/07/23] atorvastatin 20 mg tablet 20 mg PO DAILY 12/24/22 [History Last Taken Unknown] benazepril 5 mg tablet 5 mg PO DAILY 12/24/22 [History Last Taken 01/07/23] budesonide 90 mcg/actuation breath activated powder inhaler 2 inh inhalation BID 12/24/22 [History Last Taken Unknown] empagliflozin 10 mg tablet (Jardiance) 10 mg PO DAILY 12/24/22 [History Last Taken Unknown] famotidine 10 mg tablet 20 mg PO DAILY 12/24/22 [History Last Taken 01/07/23] fluoxetine 20 mg capsule 20 mg PO DAILY 12/24/22 [History Last Taken Unknown] furosemide 20 mg tablet (Lasix) 20 mg PO DAILY 12/24/22 [History Last Taken Unknown] levothyroxine 100 mcg capsule 100 mcg PO DAILY 12/24/22 [History Last Taken 01/07/23] naloxegol 25 mg tablet (Movantik) 25 mg PO QAM 12/24/22 [History Last Taken Unknown] sucralfate 100 mg/mL oral suspension (Carafate) 10 ml PO BID 12/24/22 [History Last Taken Unknown] baclofen 10 mg tablet 10 mg PO TID muscle spasm 12/25/22 [History Last Taken Unknown] divalproex 500 mg tablet,delayed release (Depakote) 500 mg PO QHS 12/25/22 [History Last Taken Unknown] dulaglutide 1.5 mg/0.5 mL subcutaneous pen injector (Trulicity) 0.75 mg subcut QWEEK 12/25/22 [History Last Taken Unknown] gabapentin 300 mg capsule 300 mg PO .QID 12/25/22 [History Last Taken 01/07/23] albuterol sulfate 90 mcg/actuation aerosol inhaler 1 inh inhalation PRN PRN shortness of breath or wheezing 12/31/22 [History Last Taken Unknown] loperamide 2 mg capsule 2 mg PO Q4H PRN loose stool 01/01/23 [History Last Taken Unknown] meloxicam 7.5 mg tablet 7.5 mg PO DAILY 01/01/23 [History Last Taken Unknown] ondansetron HCl 8 mg tablet 8 mg PO PRN NAUSEA 01/01/23 [History Last Taken Unknown] tizanidine 4 mg tablet 4 mg PO DAILY 01/01/23 [History Last Taken 01/07/23] trazodone 100 mg tablet 100 mg PO QHS 01/01/23 [History Last Taken Unknown] Allergy/AdvReac Type Severity Reaction Status Date / Time aspirin Allergy Mild Hives Verified 02/27/23 06:12 erythromycin base Allergy Mild Hives Verified 02/27/23 06:12 Penicillins Allergy Mild Hives Verified 02/27/23 06:12 polyethylene glycol 3350 Allergy Mild Nausea/Vom/ Verified 02/27/23 06:12 [From Miralax] Diarrhea tramadol Allergy Mild Hives Verified 02/27/23 06:12 tomatoes Allergy unknown Uncoded 01/18/23 09:39 Family History Mother Heart disease Hypertension Cancer Father Brain aneurysm age 40 CVA (cerebral vascular accident) Cancer Brother Colon cancer Surgical History H/O: hysterectomy History of bilateral cataract extraction History of delivery History of cholecystectomy History of lithotripsy Hx of toe surgery Hx of vein stripping Social History Smoking Status: Current every day smoker tobacco type: cigarettes and e- cigarettes Tobacco: How many years used: 18 Electronic Cigarette Use: with nicotine second hand exposure: No alcohol intake: never substance use type: does not use caffeine: Yes Physical Exam Const alert and no apparent distress General Appearance: cooperative Resp Effort and Inspection: able to speak in complete sentences GI GI Narrative: Well-healed scars from patient's prior operations. No visible herniation. No abdominal distention. Soft with reported tenderness to the right lower quadrant and left lower quadrant. Patient initially states that her right-sided tenderness is worse with palpation, but then flipped this and flipped this yet again during exam. Lab / Micro Data 02/27/23 07:28 02/27/23 07:28 Labs: Laboratory Results - last 24 hr 02/27/23 07:28: WBC 11.1 H, RBC 4.64, Hgb 13.2, Hct 42.1, MCV 90.7, MCH 28.4, MCHC 31.4 L, RDW Std Deviation 45.8 H, RDW Coeff of Penny 13.9, Plt Count 167, MPV 9.6, Immature Gran % (Auto) 0.600, Neut % (Auto) 85.1 H, Lymph % (Auto) 6.6 L, [place] % (Auto) 6.1, Eos % (Auto) 1.1, Baso % (Auto) 0.5, Absolute Neuts (auto) 9.5 H, Absolute Lymphs (auto) 0.73 L, Nucleated RBC % 0, Sodium 137, Potassium 4.5, Chloride 105, Carbon Dioxide 30.0, Anion Gap 2 L, BUN 32 H, Creatinine 1.43 H, Estim Creat Clear Calc 33.31, Est GFR (MDRD) Af Amer 48 L, Est GFR (MDRD) N on-Af 39 L, BUN/Creatinine Ratio 22.4 H, Glucose 157 H, Calcium 9.5, Total Bilirubin 0.40, AST 17, ALT 21, Alkaline Phosphatase 59, B-Natriuretic Peptide 18.1, Total Protein 6.2 L, Albumin 2.7 L, Globulin 3.5, Albumin/Globulin Ratio 0.8 L, Lipase 29, Valproic Acid 16 L 02/27/23 08:30: Urine Color Yellow, Urine Clarity Clear, Urine pH 6.0, Ur Specific [place] 1.020, Urine Protein 15 H, Urine Glucose (UA) 1000 H, Urine Ketones Negative, Urine Occult Blood Negative, Urine Nitrite Negative, Urine Bilirubin Negative, Urine Urobilinogen Normal, Ur Leukocyte Esterase 25 H, Urine RBC 0 SEEN, Urine WBC 0 SEEN, Ur Squamous Epith Cells 0 SEEN, Urine Bacteria 0 S EEN, Urine Mucus 0 SEEN Micro: Microbiology 02/27/23 07:34 Interface Orders Rapid RSV (DFA) - Final 02/27/23 07:28 Nasal Secretion SARS-CoV-2 & FLU Antigen (Rapid) - Final Imagaing Radiology Impression Chest X-Ray 02/27/23 07:44 IMPRESSION: No acute pulmonary process Electronically Signed: Richard Lucio MD at 8:27 EST , Abdomen/Pelvis CT 02/27/23 09:54 IMPRESSION: There is an abnormal appearing small bowel loop in the left mid and lower abdomen with submucosal thickening and inflammatory stranding suggesting a focal obstruction. This could be due to adhesions from previous surgery. Surgical consultation recommended. Extensive sigmoid diverticula with some mucosal thickening of the sigmoid and a minimal amount of perisigmoidal inflammatory stranding suggesting diverticulitis is likely present within the sigmoid colon. No perforation or abscess is noted. Diffuse free fluid around the periphery of the liver and spleen and into the pelvis without evidence of hepatic abnormality. The free fluid is likely due to a combination of the abnormal small bowel loop described above and the sigmoid diverticulitis. No suspicious solid organ abnormality, previous cholecystectomy Small right pleural effusion Electronically Signed: Richard Lucio MD at 11:05 EST , Charges/Coding Visit Charges Office Visits / Consults: [id number] ED Visit; Low/Mod Severity
== END 2023-02-27 14:20 | disposition home or self-care (01) ==
PROVIDERS: Emergency Provider Emergency Medicine; PCP Nurse Practitioner Family; Visit Provider Emergency Medicine
DX: B34.9 Viral infection, unspecified (principal); N17.9 Acute kidney failure, unspecified; I50.9 Heart failure, unspecified; I11.0 Hypertensive heart disease with heart failure; E11.40 Type 2 diabetes mellitus with diabetic neuropathy, unspecified; I48.0 Paroxysmal atrial fibrillation; E78.00 Pure hypercholesterolemia, unspecified; K57.30 Diverticulosis of large intestine without perforation or abscess without bleeding; F17.210 Nicotine dependence, cigarettes, uncomplicated; J45.901 Unspecified asthma with (acute) exacerbation; R18.8 Other ascites; R11.2 Nausea with vomiting, unspecified; Z79.01 Long term (current) use of anticoagulants; F17.290 Nicotine dependence, other tobacco product, uncomplicated; Z79.899 Other long term (current) drug therapy; K57.32 Diverticulitis of large intestine without perforation or abscess without bleeding
CPT/HCPCS: 71045; 74177; 80053; 80164; 81001; 83690; 83880; 85025; 87428; 87807; 93005; 94640; 96374; 99284; Q9967; A4216; J2405

== ENCOUNTER 2023-03-09 15:10 | Emergency (ER) | payer MEDICARE, MEDICAID, SELFPAY ==
[2023-03-09] VITALS (20 sets, daily range): BP systolic 130–161; BP diastolic 68–120; PULSE 65–76; RESP 14–28; TEMP 37.2; O2SAT 96–100; BMI 34.7
--- NOTE | 2023-03-09 15:41 | ED.VIS.GI ---
HPI HPI - GI History of Present Illness Chief Complaint: Abd Pain Informant: patient and family Narrative Narrative: Sent into the ED after seeing PCP today for concerns or worsening diverticulitis. Was seen 10 days ago in the ED for right lower quadrant pain. Patient had findings of sigmoid diverticulitis along with potential focal obstruction. She was seen by surgery as consult clinically did not have any obstruction was tolerating p.o. intake. She is on a 10-day course of antibiotics she states she finished the Cipro has 2 doses of Flagyl left. Pain has been persistent. No fevers. Saw PCP today and sent here for reevaluation. Partial hysterectomy cholecystectomy in the past. Nausea. Dark stool over the last 2 days. She is on Eliquis for treatment of paroxysmal A-fib. She had a colonoscopy 2 years ago over in [place]. Prior similar symptoms: Yes PFSH PFS Medical History Alcohol use Cardiac arrest Cardiology follow-up encounter CHF (congestive heart failure) COPD (chronic obstructive pulmonary disease) Decreased left ventricular function Diabetes Dietary restriction Diverticulosis DKA (diabetic ketoacidosis) Easy bruising Emphysema lung Emphysema, unspecified Essential hypertension Fall Gastric reflux Gout Heart attack High cholesterol History of edema History of pain when walking History of ulceration Hypothyroid Injury of back Insomnia Iron deficiency anemia Kidney failure Lichen sclerosus Macular degeneration Major depression Migraine Neuropathy Neuropathy On home oxygen therapy Paroxysmal atrial fibrillation Pericardial effusion with cardiac tamponade PVD (peripheral vascular disease) Rash Schizoaffective disorder, bipolar type Seizures Substance abuse Vapes nicotine containing substance Wears dentures Wears glasses Home Medications apixaban 5 mg tablet (Eliquis) 5 mg PO BID a. fib. 12/24/22 [History Last Taken Unknown] atorvastatin 20 mg tablet 20 mg PO DAILY 12/24/22 [History Last Taken Unknown] benazepril 5 mg tablet 5 mg PO DAILY htn 12/24/22 [History Last Taken 01/07/23] budesonide 90 mcg/actuation breath activated powder inhaler 2 inh inhalation BID 12/24/22 [History Last Taken Unknown] empagliflozin 10 mg tablet (Jardiance) 10 mg PO DAILY 12/24/22 [History Last Taken Unknown] famotidine 10 mg tablet 20 mg PO DAILY 12/24/22 [History Last Taken 01/07/23] fluoxetine 20 mg capsule 20 mg PO DAILY 12/24/22 [History Last Taken Unknown] furosemide 20 mg tablet (Lasix) 20 mg PO DAILY 12/24/22 [History Last Taken Unknown] levothyroxine 100 mcg capsule 100 mcg PO DAILY 12/24/22 [History Last Taken 01/07/23] naloxegol 25 mg tablet (Movantik) 25 mg PO QAM 12/24/22 [History Last Taken Unknown] sucralfate 100 mg/mL oral suspension (Carafate) 10 ml PO BID 12/24/22 [History Last Taken Unknown] baclofen 10 mg tablet 10 mg PO TID muscle spasm 12/25/22 [History Last Taken Unknown] divalproex 500 mg tablet,delayed release (Depakote) 500 mg PO QHS 12/25/22 [History Last Taken Unknown] gabapentin 300 mg capsule 300 mg PO .QID 12/25/22 [History Last Taken 01/07/23] albuterol sulfate 90 mcg/actuation aerosol inhaler 1 inh inhalation PRN PRN shortness of breath or wheezing 12/31/22 [History Last Taken Unknown] meloxicam 7.5 mg tablet 7.5 mg PO DAILY 01/01/23 [History Last Taken Unknown] trazodone 100 mg tablet 100 mg PO QHS 01/01/23 [History Last Taken Unknown] metronidazole 500 mg tablet 500 mg PO Q8H #21 tabs 02/27/23 [Rx Last Taken Unknown] ondansetron 4 mg disintegrating tablet 4 mg PO Q8H PRN PRN Nausea #10 tabs 02/27/23 [Rx Last Taken Unknown] aripiprazole 20 mg tablet 20 mg PO QHS 03/09/23 [History Last Taken Unknown] ondansetron 4 mg disintegrating tablet 4 mg PO Q8H PRN PRN Nausea #10 tabs 03/09/23 [Rx Last Taken Unknown] oxycodone-acetaminophen 5 mg-325 mg tablet 1 tab PO Q6H PRN PRN Pain 3 days #12 TABLETS 03/09/23 [Rx Last Taken Unknown] pantoprazole 40 mg tablet,delayed release 40 mg PO DAILY #30 tabs 03/09/23 [Rx Last Taken Unknown] Allergy/AdvReac Type Severity Reaction Status Date / Time aspirin Allergy Mild Hives Verified 03/09/23 15:12 erythromycin base Allergy Mild Hives Verified 03/09/23 15:12 Penicillins Allergy Mild Hives Verified 03/09/23 15:12 polyethylene glycol 3350 Allergy Mild Nausea/Vom/ Verified 03/09/23 15:12 [From Miralax] Diarrhea tramadol Allergy Mild Hives Verified 03/09/23 15:12 tomatoes Allergy unknown Uncoded 01/18/23 09:39 Family History Mother Heart disease Hypertension Cancer Father Brain aneurysm age 40 CVA (cerebral vascular accident) Cancer Brother Colon cancer Surgical History H/O: hysterectomy History of bilateral cataract extraction History of delivery History of cholecystectomy History of lithotripsy Hx of toe surgery Hx of vein stripping Social History Smoking Status: Current every day smoker tobacco type: cigarettes and e-cigarettes Tobacco: How many years used: 18 Electronic Cigarette Use: with nicotine second hand exposure: No alcohol intake: never substance use type: does not use caffeine: Yes ROS ROS ED Constitutional Constitutional ED: Denies chills, fever(s) or sweats Eyes Eyes: Denies change in vision ENT ENT ED: Denies dysphagia or sore throat Cardiovascular Cardiovascular: Denies chest pain, leg edema, palpitations or racing heartbeat Respiratory/Chest Respiratory/Chest: Denies cough, dyspnea or dyspnea on exertion Gastrointestinal Gastrointestinal: Reports abdominal pain, melena and nausea; Denies diarrhea or vomiting Genitourinary Genitourinary ED: Denies dysuria, hematuria or urinary frequency Musculoskeletal Musculoskeletal: Denies back pain, extremity pain or neck pain Integumentary Denies rash or wounds Neurologic Neurologic: Denies headache(s), paresthesias or weakness EXAM Physical Exam Const Vital Signs: 03/09/23 15:12 03/09/23 16:18 03/09/23 16:20 Temperature 98.9 F Temperature Source Temporal Pulse Rate 73 73 69 Respiratory Rate 14 17 14 Blood Pressure 150/68 H Blood Pressure Mean 95 Pulse Ox 96 100 99 Oxygen Delivery Method Room Air Nasal Cannula Oxygen Flow Rate (L/min) 2 03/09/23 16:30 03/09/23 16:40 03/09/23 16:46 Temperature Temperature Source Pulse Rate 65 68 76 Respiratory Rate 20 H 15 18 Blood Pressure 142/74 H 143/70 H Blood Pressure Mean 93 91 Pulse Ox 99 100 98 Oxygen Delivery Method Nasal Cannula Oxygen Flow Rate (L/min) 2 03/09/23 16:50 03/09/23 17:00 03/09/23 17:10 Temperature Temperature Source Pulse Rate 71 66 66 Respiratory Rate 28 H 19 H 17 Blood Pressure 143/81 H Blood Pressure Mean 94 Pulse Ox 99 100 100 Oxygen Delivery Method Oxygen Flow Rate (L/min) 03/09/23 17:15 03/09/23 17:27 03/09/23 17:30 Temperature Temperature Source Pulse Rate Respiratory Rate 18 Blood Pressure 130/84 H Blood Pressure Mean 95 Pulse Ox 98 99 Oxygen Delivery Method Nasal Cannula Oxygen Flow Rate (L/min) 2 03/09/23 17:30 03/09/23 17:40 03/09/23 17:45 Temperature Temperature Source Pulse Rate 69 65 Respiratory Rate 19 H 20 H Blood Pressure 151/80 H 155/70 H Blood Pressure Mean 101 92 Pulse Ox 99 99 Oxygen Delivery Method Oxygen Flow Rate (L/min) 03/09/23 17:50 03/09/23 18:00 03/09/23 18:10 Temperature Temperature Source Pulse Rate 72 69 Respiratory Rate 18 16 Blood Pressure 149/120 H Blood Pressure Mean 130 Pulse Ox 98 97 Oxygen Delivery Method Oxygen Flow Rate (L/min) 03/09/23 18:15 03/09/23 18:20 03/09/23 18:30 Temperature Temperature Source Pulse Rate 76 75 74 Respiratory Rate 18 18 21 H Blood Pressure 161/82 H 159/76 H Blood Pressure Mean 105 96 Pulse Ox 96 99 98 Oxygen Delivery Method Nasal Cannula Oxygen Flow Rate (L/min) Positive well nourished and well developed General Appearance ED: well developed and NAD HEENT Reports moist mucous membranes normocephalic and atraumatic Eyes PERRL, EOMs intact bilaterally and conjunctivae normal General Eye ED: Yes normal appearance of both eyes Neck no lymphadenopathy and supple General: Negative for tenderness Chest Wall Chest: Negative for tenderness Resp normal respiratory effort and normal air movement Effort and Inspection: symmetric chest movement; Negative for respiratory distress Cardio regular rate, regular rhythm and no murmurs Peripheral Pulses: pulses 2+ throughout GI normal to inspection, nondistended, normoactive bowel sounds GI Narrative: Tender right lower quadrant. No guarding or rebound. Negative Rovsing's. Palpation: Negative for guarding or rebound tenderness present Back/Spine no CVA tenderness and no thoracic nor lumbar tenderness Extremity normal to inspection General Extremety ED: Negative for edema or tenderness General Extremity: Negative for edema Neuro oriented x3 and no sensory deficits noted Sensorium / Orientation: awake and alert Skin no rashes or lesions noted and no wounds MDM MDM MDM Narrative Medical decision making narrative: Interventions / MDM: Differential diagnosis: Abdominal pain, gastritis, electrolyte abnormalities Diagnosis considered but do not suspect: Complicated diverticulitis with abscess however CT negative. Appendicitis however CT negative. My EKG interpretation: Sinus rate of 70, no ST or T wave changes. Imaging independently reviewed and interpreted by myself: CT abdomen pelvis with p.o. and IV contrast: Normal appendix no diverticulitis no abscess diverticulosis noted. Is also read by radiology. External documents reviewed: N/A Test considered but not ordered:N/A ED course: Patient persistent right side abdominal change recent diagnosis of diverticulitis. No fevers. Repeat abdominal labs along with contrast CT for further evaluation to rule out any complications. Treated morphine fluids Zofran. 1800: CT results were negative for any abscess or any colitis. Normal appendix. Patient developed epigastric chest pains. EKG ordered sinus rhythm rate of [address] or T wave changes. GI cocktail given. 1930: Symptom improved with GI cocktail. She had distended bladder on my evaluation, she is able to urinate postvoid residual is 57 symptoms improved. Urine sent 100 leukocytes no other signs of infection urine culture sent. She denies dysuria. Will hold and treat only if cultures are positive. She has been previously on omeprazole for gastritis symptoms. Will place on pantoprazole Zofran as needed along with oxycodone as needed with meds to bed as there is no complicated or infectious reasons for abdominal pain at this time. Skin follow with GI as an outpatient with strict return precautions. Abdomen was soft on reevaluation there is no guarding or rebound. All questions were answered. Re-evaluation: stable Disposition discussed with patient/family/significant other: Patient and family Case discussed with consulting clinician: N/A This note was generated with [employer] dictation software. It may contain incorrect words, spelling, and punctuation that were not noted in checking the note before signing. Lab Data Attestation: I reviewed the patient's lab results. Labs: Laboratory Results - last 24 hr 03/09/23 03/09/23 15:56 18:45 WBC 7.5 RBC 4.24 Hgb 11.9 L Hct 38.8 MCV 91.5 MCH 28.1 MCHC 30.7 L RDW Std Deviation 46.7 H RDW Coeff of Penny 14.0 Plt Count 270 MPV 9.8 Immature Gran % (Auto) 1.500 H Neut % (Auto) 64.8 Lymph % (Auto) 22.3 Richardson % (Auto) 8.8 Eos % (Auto) 1.9 Baso % (Auto) 0.7 Absolute Neuts (auto) 4.9 Absolute Lymphs (auto) 1.68 Nucleated RBC % 0 PT 14.3 INR 1.1 APTT 30.7 Sodium 138 Potassium 4.2 Chloride 104 Carbon Dioxide 32.0 Anion Gap 2 L BUN 21 H Creatinine 1.35 H Estim Creat Clear Calc 35.28 Est GFR (MDRD) Af Amer 51 L Est GFR (MDRD) Non-Af 42 L BUN/Creatinine Ratio 15.6 Glucose 147 H Lactic Acid 1.1 Calcium 9.7 Total Bilirubin 0.20 AST 18 ALT 19 Alkaline Phosphatase 53 Total Protein 6.8 Albumin 3.0 L Globulin 3.8 Albumin/Globulin Ratio 0.8 L Lipase 39 Urine Color Yellow Urine Clarity Clear Urine pH 7.0 Ur Specific [place] 1.010 Urine Protein Negative Urine Glucose (UA) 1000 H Urine Ketones Negative Urine Occult Blood Negative Urine Nitrite Negative Urine Bilirubin Negative Urine Urobilinogen Normal Ur Leukocyte Esterase 25 H Urine RBC 0 SEEN Urine WBC 0-5 SEEN Ur Squamous Epith Cells 0 SEEN Urine Bacteria 0 SEEN Urine Mucus 0 SEEN Radiography Diagnostic Testing: Clinical Impression(s) from Imaging Studies Abdomen/Pelvis CT 03/09/23 17:15 IMPRESSION: No acute abnormality. Diverticulosis without diverticulitis. Stable dilated common bile duct. Electronically Signed: Artem Pennington MD at 17:47 EST , Discharge Plan Triage Chief Complaint: Abd Pain ED Provider: Micky Roa Dx/Rx/DC Orders Clinical Impression: Gastritis, Abdominal pain, Diverticulosis Instructions: Abdominal Pain, ED Gastritis (Adult) Prescriptions: New oxycodone-acetaminophen [oxycodone-acetaminophen] 5-325 mg tablet 1 tab PO Q6H PRN PRN (Reason: Pain) 3 Days Qty: 12 0RF ondansetron [ondansetron] 4 mg tablet,disintegrating 4 mg PO Q8H PRN PRN (Reason: Nausea) Qty: 10 0RF pantoprazole 40 mg tablet,delayed release (DR/EC) 40 mg PO DAILY Qty: 30 0RF No Action atorvastatin 20 mg tablet 20 mg PO DAILY benazepril 5 mg tablet 5 mg PO DAILY budesonide 90 mcg/actuation aerosol powdr breath activated 2 inh inhalation BID Eliquis 5 mg tablet 5 mg PO BID famotidine 10 mg tablet 20 mg PO DAILY fluoxetine 20 mg capsule 20 mg PO DAILY furosemide [Lasix] 20 mg tablet 20 mg PO DAILY Jardiance 10 mg tablet 10 mg PO DAILY levothyroxine 100 mcg capsule 100 mcg PO DAILY sucralfate [Carafate] 100 mg/mL suspension 10 ml PO BID Movantik 25 mg tablet 25 mg PO QAM Rx Instructions: must be taken on empty stomach; no food 1 hr after or 2-3 hrs before dose divalproex [Depakote] 500 mg tablet,delayed release (DR/EC) 500 mg PO QHS baclofen 10 mg tablet 10 mg PO TID gabapentin 300 mg capsule 300 mg PO .QID albuterol sulfate 90 mcg/actuation HFA aerosol inhaler 1 inh INHALATION PRN PRN (Reason: shortness of breath or wheezing) trazodone 100 mg tablet 100 mg PO QHS Patient Comments: TAKE 1 TABLET BY MOUTH EVERY DAY AT NIGHT meloxicam 7.5 mg tablet 7.5 mg PO DAILY Patient Comments: TAKE 1 TABLET BY MOUTH EVERY DAY FOR 30DAYS ON A FULL STOMACH metronidazole [metronidazole] 500 mg tablet 500 mg PO Q8H Qty: 21 0RF Patient Comments: 2 doses left ondansetron [ondansetron] 4 mg tablet,disintegrating 4 mg PO Q8H PRN PRN (Reason: Nausea) Qty: 10 0RF aripiprazole 20 mg tablet 20 mg PO QHS Patient Comments: TAKE ONE TABLET BY MOUTH DAILY AT 9AM Primary Care Provider: Eric Marion NP Referrals: Friend,Everton, DO [Med Staff - Active Staff] - 1-2 Weeks Eric Marion VSPushpa, [employer]ER-C [[facility]] - 1 Week Activity Restrictions/Additional Instructions: Your CT scan with resolved diverticulitis no abscess. Normal appendix. Labs are all stable. Take medications as prescribed. Follow-up with GI as an outpatient. Follow-up with your PCP. Symptoms worsens not controlled medications return to ED for reevaluation. Finish your 2 doses of Flagyl. Disposition Disposition: Home, Self Care
[2023-03-09] MEDS: Morphine 4 MG/ML Syringe IV ×2 (15:52→17:29)
[2023-03-09] MEDS: 0.9% Normal Saline (1000mL) 1,000 ML 1000 ML IV (15:52)
[2023-03-09] MEDS: Ondansetron 4 MG/2 ML Vial IV (15:52)
[2023-03-09 16:09] LABS: Absolute Lymphocyte Count 1.68 X10^3/uL (0.83-4.51); Absolute Neutrophil Count 4.9 X10^3/uL (2.0-7.7); Basophil# 0.05 X10^3/uL; Basophil% 0.7 % (0-1); Eosinophil# 0.14 X10^3/uL; Eosinophils% 1.9 % (0-5); Hematocrit 38.8 % (37-47); Hemoglobin 11.9 g/dL (12.0-15.0); Lymphocyte # 1.68 X10^3/ul (0.83-4.51); Lymphocyte % 22.3 % (19-41); Mean Corp Hgb Conc 30.7 g/dL (32-36); Mean Corpuscular Hgb 28.1 pg (27.0-32.0); Mean Corpuscular Volume 91.5 fL (81-99); Mean Platelet Vol. 9.8 fl (6.2-12.0); Monocyte# 0.66 X10^3/uL; Monocyte% 8.8 % (0-10); NRBC Flagged by Analyzer 0 % (0-5); Neutrophil # 4.88 X10^3/uL (2.7-7.7); Neutrophil % 64.8 % (47-70); Platelet Count 270 K/mm3 (150-450); RBC Distribution Width SD 46.7 fl (35.1-43.9); Red Blood Count 4.24 M/mm3 (4.2-5.4); White Blood Count 7.5 K/mm3 (4.4-11.0)
[2023-03-09 16:23] LABS: International Normalized Ratio 1.1; Partial Thromboplast Time 30.7 Seconds (24.1-36.2); Prothrombin Time (Protime)PT. 14.3 SECONDS (11.7-14.9)
[2023-03-09 16:31] LABS: ALB/GLOB Ratio 0.8 RATIO (0.9-2.4); AST(SGOT) 18 U/L (15-37); Alanine Aminotransfer ALT/SGPT 19 U/L (13-56); Alkaline Phosphatase 53 U/L (45-117); Anion Gap 2 (5-15); BUN 21 mg/dL (7-18); BUN/Creat Ratio 15.6 RATIO (10-20); Calcium,Total 9.7 mg/dL (8.5-10.1); Chloride 104 mmol/L (98-107); Creatinine, Serum 1.35 mg/dL (0.55-1.02); EST Glomerular Filtration Rate 42 mL/min (>60); Est Glom Filt Rate - Afr Amer 51 mL/min (>60); Estimated Creatinine Clearance 35.28 ml/min; Globulin 3.8 g/dL (2.2-4.2); Glucose 147 mg/dL (74-106); Lipase 39 U/L (13-75); Potassium 4.2 mmol/L (3.5-5.1); Protein, Total 6.8 g/dL (6.4-8.2); Sodium Level 138 mmol/L (136-145)
[2023-03-09 17:07] LABS: Lactic Acid 1.1 mmol/L (0.4-1.9)
--- NOTE | 2023-03-09 17:15 | CT_ITS ---
STUDY: CT ABDOMEN AND PELVIS WITH CONTRAST REASON FOR EXAM: Female, 62 years old. rlq abdominal pain -- recent colitis, r/o abscess RADIATION DOSAGE (If Supplied By Facility): CTDIvol = ( 19.92 ) mGy, DLP = ( 1073.22 ) mGycm TECHNIQUE: Transaxial images were obtained from the dome of the diaphragm to the symphysis pubis without oral contrast. Oral and amp; IV Gastrografin and amp; 100mL Isovue-300 was administered. Sagittal and coronal images were reconstructed. Individualized dose optimization techniques were used for this CT. COMPARISON: 02/27/2023. FINDINGS: Stable probable scarring along the posterior right costophrenic angle. Normal liver. There are surgical clips in the gallbladder fossa consistent with a prior cholecystectomy. Mild extrahepatic bile duct distention, stable. Normal spleen. Normal pancreas. Normal bilateral adrenal glands. Normal right kidney. Normal left kidney. Normal visualized stomach. Normal small intestine. There are multiple colonic diverticula consistent with diverticulosis. The appendix is visualized and appears normal. Normal abdominal aorta. Normal inferior vena cava. Normal retroperitoneum. Normal urinary bladder. There is absence of the uterus consistent with a prior hysterectomy. Normal abdominal wall. There are diffuse degenerative changes of the visualized lumbar spine. CT/Abdomen/Pelvis WITH Contrast IMPRESSION: No acute abnormality. Diverticulosis without diverticulitis. Stable dilated common bile duct. Electronically Signed: Artem Pennington MD at 17:47 EST ,
[2023-03-09] MEDS: Mag Hydrox/Al Hydrox/Simeth 30 ML UDC PO (18:11)
[2023-03-09 18:51] LABS: Bacteria 0 SEEN /hpf (None Seen); Mucous, Urine 0 SEEN /hpf (<or=2+); Red Blood Cells-Urine 0 SEEN /hpf (0-5); Squamous Epithelial Cells - UA 0 SEEN /hpf (5-10)
[2023-03-09 18:52] LABS: Color, Urine Yellow (Yellow); Glucose, Dipstick 1000 mg/dl (Normal); Ketone-Dipstick Negative (Negative); Leukocyte Esterase-Dipstick 25 /ul (Negative); Nitrite-Dipstick Negative (Negative); Occult Blood-Urine Negative /ul (Negative); Protein-Dipstick Negative (Negative); Urine Bilirubin Dipstick Negative (Negative); Urine Clarity Clear (Clear); Urine Urobilinogen Normal (Normal)
[2023-03-09 18:59] LABS: White Blood Cells 0-5 SEEN /hpf (0-5)
== END 2023-03-09 19:40 | disposition home or self-care (01) ==
PROVIDERS: Emergency Provider Emergency Medicine; PCP Nurse Practitioner Family; Visit Provider Emergency Medicine
DX: K29.70 Gastritis, unspecified, without bleeding (principal); J43.9 Emphysema, unspecified; I50.9 Heart failure, unspecified; I11.0 Hypertensive heart disease with heart failure; I48.0 Paroxysmal atrial fibrillation; E11.9 Type 2 diabetes mellitus without complications; F17.210 Nicotine dependence, cigarettes, uncomplicated; K57.90 Diverticulosis of intestine, part unspecified, without perforation or abscess without bleeding; Z79.01 Long term (current) use of anticoagulants; Z90.49 Acquired absence of other specified parts of digestive tract; E78.00 Pure hypercholesterolemia, unspecified
CPT/HCPCS: 74177; 80053; 81001; 83605; 83690; 85025; 85610; 85730; 87086; 87088; 93005; 96361; 96374; 96375; 96376; 99284; J7030; Q9967; A4216; J2405

== ENCOUNTER → 2023-03-15 | Outpatient (CLI) | payer MEDICARE, MEDICAID, SELFPAY ==
[2023-03-15 14:35] LABS: Amphetamine Urine VISTA NEGATIVE (<1000 ng/mL); Barbiturate Urine VISTA NEGATIVE (< 200 ng/mL); Benzodiazepine Urine VISTA NEGATIVE (< 200 ng/mL); Cocaine Urine VISTA NEGATIVE (< 300 ng/mL); Ecstacy Urine VISTA NEGATIVE (< 500 ng/mL); Methadone Urine VISTA NEGATIVE (< 300 ng/mL); PCP Urine VISTA NEGATIVE (< 25 ng/mL); THC Urine VISTA NEGATIVE (< 50 ng/mL); Vista UDS pH Range 6
== END | disposition home or self-care (01) ==
LOC: LAB 13:19
PROVIDERS: PCP Nurse Practitioner Family; Referring Provider Anesthesiology Pain Medicine; Visit Provider Anesthesiology Pain Medicine
DX: F11.20 Opioid dependence, uncomplicated (principal)
CPT/HCPCS: 80307

== ENCOUNTER 2023-04-07 20:17 | Emergency (ER) | payer MEDICARE, MEDICAID, SELFPAY ==
[2023-04-07 20:18] VITALS: BP 116/56; PULSE 65; RESP 16; TEMP 36.6; O2SAT 93
--- NOTE | 2023-04-07 22:27 | US_ITS ---
INDICATION: RT POSTERIOR / MEDIAL KNEE PAIN X 1 MONTH EXAMINATION: Ultrasound US Venous Duplex LE Unilat / Limited TECHNIQUE: Aaron scale, pulse wave, and color flow Doppler imaging was performed of the lower extremity venous system. The bilateral greater saphenous, common femoral, femoral, and popliteal veins were interrogated. COMPARISON: No relevant prior comparison study available FINDINGS: There is normal compression, augmentation, and signal throughout the visualized deep lower extremity veins. There is a popliteal cyst measures approximately 2.9 cm in greatest diameter. US/Venous Duplex Imag/Limited/Uni IMPRESSION: No sonographic evidence of deep venous thrombosis. Electronically Signed: Lance Taylor MD at 0:00 EST ,
--- NOTE | 2023-04-07 22:30 | EDS_ITS ---
HPI History of Present Illness HPI Narrative: Patient presents with pain to her right knee that has been intermittent over the past 2 weeks. Patient states became worse tonight. Patient states it is gradually gotten worse. Patient states tonight her pain has been constant. Patient describes her pain as burning. Patient states it is worse with walking. Patient states she has some numbness in her right knee that is intermittent. Patient denies any weakness. Patient states she fell recently when her brakes on her rollator gave out and she fell forward. Chief Complaint: Lower Extremity Injury Informant: patient Onset/Context/Timing Onset: Weeks (2) Context: Gradual Onset Timing: Continuous Quality of Pain: Burning Location: Right knee Worsened by: Walking Relieved by: Nothing Associated Symptoms Associated Symptoms: Positive for Parasthesia; Negative for Weakness or Loss of Funtion [facility] Medical History Alcohol use Cardiac arrest Cardiology follow-up encounter CHF (congestive heart failure) COPD (chronic obstructive pulmonary disease) Decreased left ventricular function Diabetes Dietary restriction Diverticulosis DKA (diabetic ketoacidosis) Easy bruising Emphysema lung Emphysema, unspecified Essential hypertension Fall Gastric reflux Gout Heart attack High cholesterol History of edema History of pain when walking History of ulceration Hypothyroid Injury of back Insomnia Iron deficiency anemia Kidney failure Lichen sclerosus Macular degeneration Major depression Migraine Neuropathy Neuropathy On home oxygen therapy Paroxysmal atrial fibrillation Pericardial effusion with cardiac tamponade PVD (peripheral vascular disease) Rash Schizoaffective disorder, bipolar type Seizures Substance abuse Vapes nicotine containing substance Wears dentures Wears glasses Home Medications apixaban 5 mg tablet (Eliquis) 5 mg PO BID a. fib. 12/24/22 [History Last Taken Unknown] atorvastatin 20 mg tablet 20 mg PO DAILY 12/24/22 [History Last Taken Unknown] benazepril 5 mg tablet 5 mg PO DAILY htn 12/24/22 [History Last Taken 01/07/23] budesonide 90 mcg/actuation breath activated powder inhaler 2 inh inhalation BID 12/24/22 [History Last Taken Unknown] empagliflozin 10 mg tablet (Jardiance) 10 mg PO DAILY 12/24/22 [History Last Taken Unknown] famotidine 10 mg tablet 20 mg PO DAILY 12/24/22 [History Last Taken 01/07/23] fluoxetine 20 mg capsule 20 mg PO DAILY 12/24/22 [History Last Taken Unknown] furosemide 20 mg tablet (Lasix) 20 mg PO DAILY 12/24/22 [History Last Taken Unknown] levothyroxine 100 mcg capsule 100 mcg PO DAILY 12/24/22 [History Last Taken 01/07/23] naloxegol 25 mg tablet (Movantik) 25 mg PO QAM 12/24/22 [History Last Taken Unknown] sucralfate 100 mg/mL oral suspension (Carafate) 10 ml PO BID 12/24/22 [History Last Taken Unknown] baclofen 10 mg tablet 10 mg PO TID muscle spasm 12/25/22 [History Last Taken Unknown] divalproex 500 mg tablet,delayed release (Depakote) 500 mg PO QHS 12/25/22 [History Last Taken Unknown] gabapentin 300 mg capsule 300 mg PO .QID 12/25/22 [History Last Taken 01/07/23] albuterol sulfate 90 mcg/actuation aerosol inhaler 1 inh inhalation PRN PRN shortness of breath or wheezing 12/31/22 [History Last Taken Unknown] meloxicam 7.5 mg tablet 7.5 mg PO DAILY 01/01/23 [History Last Taken Unknown] trazodone 100 mg tablet 100 mg PO QHS 01/01/23 [History Last Taken Unknown] ondansetron 4 mg disintegrating tablet 4 mg PO Q8H PRN PRN Nausea #10 tabs 02/27/23 [Rx Last Taken Unknown] aripiprazole 20 mg tablet 20 mg PO QHS 03/09/23 [History Last Taken Unknown] pantoprazole 40 mg tablet,delayed release 40 mg PO DAILY #30 tabs 03/09/23 [Rx Last Taken Unknown] Allergy/AdvReac Type Severity Reaction Status Date / Time aspirin Allergy Mild Hives Verified 04/07/23 20:17 erythromycin base Allergy Mild Hives Verified 04/07/23 20:17 Penicillins Allergy Mild Hives Verified 04/07/23 20:17 polyethylene glycol 3350 Allergy Mild Nausea/Vom/ Verified 04/07/23 20:17 [From Miralax] Diarrhea tramadol Allergy Mild Hives Verified 04/07/23 20:17 tomatoes Allergy unknown Uncoded 01/18/23 09:39 Family History Mother Heart disease Hypertension Cancer Father Brain aneurysm age 40 CVA (cerebral vascular accident) Cancer Brother Colon cancer Surgical History H/O: hysterectomy History of bilateral cataract extraction History of delivery History of cholecystectomy History of lithotripsy Hx of toe surgery Hx of vein stripping Social History Smoking Status: Current every day smoker tobacco type: cigarettes and e- cigarettes Tobacco: How many years used: 18 Electronic Cigarette Use: with nicotine second hand exposure: No alcohol intake: never substance use type: does not use caffeine: Yes ROS ROS ED Constitutional Constitutional ED: Denies chills or fever(s) Eyes Eyes: Denies blurry vision or change in vision ENT ENT ED: Denies rhinorrhea or sore throat Cardiovascular Cardiovascular: Denies chest pain or palpitations Respiratory/Chest Respiratory/Chest: Denies cough or dyspnea Gastrointestinal Gastrointestinal: Reports nausea; Denies vomiting Genitourinary Genitourinary ED: Denies dysuria or hematuria Musculoskeletal Musculoskeletal: Reports back pain; Denies neck pain Integumentary Denies abscess or rash Neurologic Neurologic: Denies headache(s) or weakness Allergic/Immunologic Allergic/Immunologic ED: Denies mouth swelling or urticaria EXAM Physical Exam Const Vital Signs: 04/07/23 20:18 Temperature 97.9 F Temperature Source Temporal Pulse Rate 65 Respiratory Rate 16 Blood Pressure 116/56 L Blood Pressure Mean 76 Pulse Ox 93 Positive well nourished and well developed General Appearance ED: well developed and NAD HEENT Reports moist mucous membranes Extremity Extremity Narrative: There is tenderness over the right knee. It is mainly over the posterior aspect of the knee. There is no effusion noted. There is no edema or ecchymosis. Range of motion was slightly limited in all motions of the right knee secondary to pain. There is mild calf tenderness. There is no edema noted. Pedal pulses are equal bilateral. Sensation was intact to light touch bilaterally in the lower extremities. Strength is 5/5 bilaterally in the lower extremities. Extensor mechanism is intact. Neuro oriented x3, CN's II-XII intact bilaterally, moves all extremities and no sensory deficits noted Sensorium / Orientation: alert Motor Exam: strength 5/5 throughout Psych mental status grossly normal MDM MDM MDM Narrative Medical decision making narrative: Differential diagnosis includes fracture, DVT, and sprain. Venous duplex of the right lower extremity will be obtained to assess for DVT. X-rays of the right knee will be obtained to assess for fracture. Radiography Diagnostic Testing: Clinical Impression(s) from Imaging Studies Venous Duplex 04/07/23 22:27 IMPRESSION: No sonographic evidence of deep venous thrombosis. Electronically Signed: Lance Taylor MD at 0:00 EST , Knee X-Ray 04/07/23 23:10 IMPRESSION: There is possible loosening of the tibial component of the right knee arthroplasty. Electronically Signed: Lance Taylor MD at 23:59 EST , Venous duplex of the right lower extremity was obtained. There is no evidence of DVT. X-rays of the right knee were obtained. There are 4 views. On my independent interpretation, there is no evidence of fracture or loosening of the prosthesis. There is no dislocation noted. Radiologist also interpreted the x-rays and noted possible loosening of the tibial component. Treatment and Re-Evaluation Narrative: Patient was advised of her findings. Patient was given a knee immobilizer. Patient was instructed to continue her pain medications as previously prescribed. Patient was instructed to ice and elevate the right knee. Patient was instructed to follow-up with her primary care physician and orthopedic surgeon in 5 to 7 days. Patient understood and was agreeable with the plan. All questions were answered. Discharge Plan Triage Chief Complaint: Lower Extremity Injury ED Provider: Goldy Thomas Dx/Rx/DC Orders Clinical Impression: Contusion of right knee, initial encounter, Diabetes, Chronic kidney disease Instructions: ED Soft Tissue Contusion Prescriptions: No Action atorvastatin 20 mg tablet 20 mg PO DAILY benazepril 5 mg tablet 5 mg PO DAILY budesonide 90 mcg/actuation aerosol powdr breath activated 2 inh inhalation BID Eliquis 5 mg tablet 5 mg PO BID famotidine 10 mg tablet 20 mg PO DAILY fluoxetine 20 mg capsule 20 mg PO DAILY furosemide [Lasix] 20 mg tablet 20 mg PO DAILY Jardiance 10 mg tablet 10 mg PO DAILY levothyroxine 100 mcg capsule 100 mcg PO DAILY sucralfate [Carafate] 100 mg/mL suspension 10 ml PO BID Movantik 25 mg tablet 25 mg PO QAM Rx Instructions: must be taken on empty stomach; no food 1 hr after or 2-3 hrs before dose divalproex [Depakote] 500 mg tablet,delayed release (DR/EC) 500 mg PO QHS baclofen 10 mg tablet 10 mg PO TID gabapentin 300 mg capsule 300 mg PO .QID albuterol sulfate 90 mcg/actuation HFA aerosol inhaler 1 inh INHALATION PRN PRN (Reason: shortness of breath or wheezing) trazodone 100 mg tablet 100 mg PO QHS Patient Comments: TAKE 1 TABLET BY MOUTH EVERY DAY AT NIGHT meloxicam 7.5 mg tablet 7.5 mg PO DAILY Patient Comments: TAKE 1 TABLET BY MOUTH EVERY DAY FOR 30DAYS ON A FULL STOMACH ondansetron [ondansetron] 4 mg tablet,disintegrating 4 mg PO Q8H PRN PRN (Reason: Nausea) Qty: 10 0RF aripiprazole 20 mg tablet 20 mg PO QHS Patient Comments: TAKE ONE TABLET BY MOUTH DAILY AT 9AM pantoprazole 40 mg tablet,delayed release (DR/EC) 40 mg PO DAILY Qty: 30 0RF Primary Care Provider: Eric Marion Referrals: Eric Marion, [facility] [Primary Care Provider] - 5-7 Days Disposition Disposition: Home, Self Care
--- NOTE | 2023-04-07 23:10 | RAD_ITS ---
INDICATION: Injury/Pain EXAMINATION/TECHNIQUE: X-RAY - RIGHT XR Knee Complete 4 Views or More 4 VIEWS COMPARISON: No relevant prior comparison study available FINDINGS: SOFT TISSUES: No soft tissue swelling or gas. No radiopaque foreign body. BONES/JOINTS: There is a right knee arthroplasty in good alignment. There is possible loosening of the tibial component. There is no evidence of fracture . RAD/Knee 4 or More Views IMPRESSION: There is possible loosening of the tibial component of the right knee arthroplasty. Electronically Signed: Lance Taylor MD at 23:59 EST ,
== END 2023-04-08 00:31 | disposition home or self-care (01) ==
PROVIDERS: Emergency Provider Emergency Medicine; PCP Nurse Practitioner Family; Visit Provider Emergency Medicine
DX: S80.01XA Contusion of right knee, initial encounter (principal); E11.51 Type 2 diabetes mellitus with diabetic peripheral angiopathy without gangrene; J43.9 Emphysema, unspecified; I13.0 Hypertensive heart and chronic kidney disease with heart failure and stage 1 through stage 4 chronic kidney disease, or unspecified chronic kidney disease; I50.9 Heart failure, unspecified; E11.22 Type 2 diabetes mellitus with diabetic chronic kidney disease; E11.40 Type 2 diabetes mellitus with diabetic neuropathy, unspecified; N18.9 Chronic kidney disease, unspecified; F17.210 Nicotine dependence, cigarettes, uncomplicated; M25.561 Pain in right knee; Z79.899 Other long term (current) drug therapy; F17.290 Nicotine dependence, other tobacco product, uncomplicated; E78.00 Pure hypercholesterolemia, unspecified; Z96.651 Presence of right artificial knee joint; W17.89XA Other fall from one level to another, initial encounter
CPT/HCPCS: 73564; 93971; 99283

== ENCOUNTER → 2023-04-27 | Outpatient (CLI) | payer MEDICARE, MEDICAID, SELFPAY ==
[2023-04-27 11:48] LABS: Amphetamine Urine VISTA NEGATIVE (<1000 ng/mL); Barbiturate Urine VISTA NEGATIVE (< 200 ng/mL); Benzodiazepine Urine VISTA NEGATIVE (< 200 ng/mL); Cocaine Urine VISTA NEGATIVE (< 300 ng/mL); Ecstacy Urine VISTA NEGATIVE (< 500 ng/mL); Methadone Urine VISTA NEGATIVE (< 300 ng/mL); PCP Urine VISTA NEGATIVE (< 25 ng/mL); THC Urine VISTA NEGATIVE (< 50 ng/mL); Vista UDS pH Range 5
== END | disposition home or self-care (01) ==
LOC: LAB 11:12
PROVIDERS: PCP Nurse Practitioner Family; Referring Provider Anesthesiology Pain Medicine; Visit Provider Anesthesiology Pain Medicine
DX: F11.20 Opioid dependence, uncomplicated (principal)
CPT/HCPCS: 80307

== ENCOUNTER → 2023-06-10 | Outpatient (CLI) | payer MEDICARE, MEDICAID, SELFPAY ==
[2023-06-10 16:00] LABS: Absolute Lymphocyte Count 1.23 X10^3/uL (0.83-4.51); Absolute Neutrophil Count 5.5 X10^3/uL (2.0-7.7); Basophil# 0.07 X10^3/uL; Basophil% 0.9 % (0-1); Eosinophil# 0.35 X10^3/uL; Eosinophils% 4.5 % (0-5); Hematocrit 38.8 % (37-47); Hemoglobin 11.9 g/dL (12.0-15.0); Lymphocyte # 1.23 X10^3/ul (0.83-4.51); Lymphocyte % 15.9 % (19-41); Mean Corp Hgb Conc 30.7 g/dL (32-36); Mean Corpuscular Hgb 27.7 pg (27.0-32.0); Mean Corpuscular Volume 90.2 fL (81-99); Mean Platelet Vol. 9.6 fl (6.2-12.0); Monocyte# 0.56 X10^3/uL; Monocyte% 7.2 % (0-10); NRBC Flagged by Analyzer 0 % (0-5); Neutrophil # 5.52 X10^3/uL (2.7-7.7); Neutrophil % 71.2 % (47-70); Platelet Count 185 K/mm3 (150-450); RBC Distribution Width CV 14.5 % (11.6-14.6); RBC Distribution Width SD 47.8 fl (35.1-43.9); White Blood Count 7.8 K/mm3 (4.4-11.0)
[2023-06-10 16:28] LABS: ALB/GLOB Ratio 0.9 RATIO (0.9-2.4); AST(SGOT) 18 U/L (15-37); Alanine Aminotransfer ALT/SGPT 17 U/L (13-56); Albumin, Serum 3.4 g/dL (3.2-5.0); Alkaline Phosphatase 65 U/L (45-117); Anion Gap 5 (5-15); BUN 32 mg/dL (7-18); BUN/Creat Ratio 17.6 RATIO (10-20); Calcium,Total 9.1 mg/dL (8.5-10.1); Chloride 104 mmol/L (98-107); Creatinine, Serum 1.82 mg/dL (0.55-1.02); EST Glomerular Filtration Rate 30 mL/min (>60); Est Glom Filt Rate - Afr Amer 36 mL/min (>60); Globulin 3.6 g/dL (2.2-4.2); Glucose 156 mg/dL (74-106); Potassium 4.3 mmol/L (3.5-5.1); Sodium Level 139 mmol/L (136-145)
== END | disposition home or self-care (01) ==
PROVIDERS: PCP Nurse Practitioner Family; Referring Provider Nurse Practitioner Family; Visit Provider Nurse Practitioner Family
DX: K58.0 Irritable bowel syndrome with diarrhea (principal)
CPT/HCPCS: 36415; 80053; 83630; 85025; 87493

== ENCOUNTER → 2023-06-14 | Outpatient (CLI) | payer MEDICARE, MEDICAID, SELFPAY | END | disposition home or self-care (01) | PROVIDERS: PCP Nurse Practitioner Family; Referring Provider Nurse Practitioner Family; Visit Provider Nurse Practitioner Family | DX: K58.0 Irritable bowel syndrome with diarrhea (principal) | CPT/HCPCS: 83630 ==

== ENCOUNTER → 2023-06-22 | Outpatient (CLI) | payer MEDICARE, MEDICAID, SELFPAY ==
[2023-06-22 10:31] LABS: Color, Urine Yellow (Yellow); Glucose, Dipstick 1000 mg/dl (Normal); Ketone-Dipstick Negative (Negative); Leukocyte Esterase-Dipstick 25 /ul (Negative); Nitrite-Dipstick Negative (Negative); Occult Blood-Urine 50 /ul (Negative); Protein-Dipstick Negative (Negative); Specific Gravity, Urine 1.015 (1.002-1.030); Urine Bilirubin Dipstick Negative (Negative); Urine Clarity Clear (Clear); Urine Urobilinogen Normal (Normal)
[2023-06-22 10:46] LABS: Anion Gap 3 (5-15); BUN 34 mg/dL (7-18); BUN/Creat Ratio 18.2 RATIO (10-20); Calcium,Total 8.8 mg/dL (8.5-10.1); Chloride 100 mmol/L (98-107); Creatinine, Serum 1.87 mg/dL (0.55-1.02); EST Glomerular Filtration Rate 29 mL/min (>60); Est Glom Filt Rate - Afr Amer 35 mL/min (>60); Glucose 211 mg/dL (74-106); Potassium 4.3 mmol/L (3.5-5.1); Sodium Level 136 mmol/L (136-145)
== END | disposition home or self-care (01) ==
LOC: PAVLAB 10:07
PROVIDERS: PCP Nurse Practitioner Family; Referring Provider Nurse Practitioner Family; Visit Provider Nurse Practitioner Family
DX: K58.0 Irritable bowel syndrome with diarrhea (principal); E11.9 Type 2 diabetes mellitus without complications; R30.9 Painful micturition, unspecified
CPT/HCPCS: 36415; 80048; 81002

== ENCOUNTER 2023-06-24 19:58 | Inpatient (IN) | payer MEDICARE, MEDICAID, SELFPAY ==
[2023-06-24] VITALS (8 sets, daily range): BP systolic 77–92; BP diastolic 36–57; PULSE 48–58; RESP 12–19; TEMP 35.8–36.6; O2SAT 98–100; BMI 40.6
--- NOTE | 2023-06-24 20:19 | EKG12_ITS ---
Test Reason : CP Blood Pressure : / mmHG Vent. Rate : 056 BPM Atrial Rate : 056 BPM P-R Int : 158 ms QRS Dur : 086 ms QT Int : 450 ms P-R-T Axes : 006 037 017 degrees QTc Int : 434 ms Sinus bradycardia with Premature atrial complexes Otherwise normal ECG Confirmed by TISHA HERRING, AMMON ([id number]), deputy editor in chief CHINTAN KHAN ([id number]) on 06/25/2023 8:22:32 AM Referred By: BISHNU Confirmed By:AMMON GILES MD
--- NOTE | 2023-06-24 20:19 | RAD_ITS ---
STUDY: X-RAY CHEST REASON FOR EXAM: Female, 62 years old. chest pain TECHNIQUE: Single AP portable view of the chest. COMPARISON: None. FINDINGS: Right internal jugular chest port. The lungs are clear and expanded. There is no demonstrated pleural abnormality. There is moderate cardiac enlargement. Normal mediastinum and jeannie. There is prominence of the pulmonary hilar arteries and peripheral pulmonary arteries, consistent with congestive heart failure (CHF). Normal visualized aortic arch and descending thoracic aorta. Normal visualized thoracic spine. Normal visualized ribs, clavicles, and shoulders. There is no demonstrated abnormality of the visualized soft tissue structures of the upper abdomen. RAD/Chest 1 View (Portable) IMPRESSION: Mild congestive heart failure. Electronically Signed: Gunner Modi MD at 20:57 EDT ,
--- NOTE | 2023-06-24 20:27 | EDS_ITS ---
HPI <Sruthi Marc RN - Last Filed: 06/24/23 23:33> History of Present Illness Chief Complaint: Chest Pain Informant: patient Onset/Context/Timing Onset: Today and - (90 minutes prior to arrival) Activity at onset: sudden Timing: Continuous Quality: Positive for Pressure Location: Substernal Current Severity: 7/10 Maximum Severity: 7/10 Worsened By: Palpation and Breathing Relieved By: Rest Associated Symptoms: Positive for Dyspnea; Negative for Nausea, Vomiting, Diaphoresis, Cough, Fever, Acid Reflux or Palpitations Narrative Narrative: Patient is a 62-year-old female with past medical history significant for cardiac arrest, pericardial effusion with tamponade, paroxysmal A-fib, chronic kidney disease, COPD, schizoaffective disorder, CHF, and diabetes who presents to the ED via EMS for midsternal chest pressure beginning approximately 90 minutes prior to arrival. Patient reports this began as she was carrying food to the table. She reports this pain is similar to the pain she had prior to her prior cardiac arrest. Patient reports she does not have any cardiac stents or has never had CABG. She denies injury. Per nursing report, patient may have taken a Vicodin approximately 3 PM. She reports occasional shortness of breath. She denies radiation of pain, diaphoresis, nausea, and vomiting. She also reports increased bilateral lower extremity edema. She does have a history of chronic lower extremity edema. See is unsure of prior family history. She denies recent hospitalization or travel. Patient reports being a less than 1 pack/day smoker for 40 years. In review of her cardiology note from 12/2022, it does state mother has heart disease and hypertension, father had a CVA. Prior Similar Symptoms: Yes and - (Pain similar to just prior to cardiac arrest) Recent Illness/Hospitalization: No CVD Risk Factors: Positive for Hypertension, Diabetes, Hypercholesterolemia and Smoking PE Risk Factors: Negative for Recent Travel/Surgery, Recent Immobilization or Prior DVT or PE TAD Risk Factors: Positive for Hypertension PFSH <Sruthi Marc RN - Last Filed: 06/24/23 23:33> PFS Medical History Alcohol use Cardiac arrest Cardiology follow-up encounter CHF (congestive heart failure) COPD (chronic obstructive pulmonary disease) Decreased left ventricular function Diabetes Dietary restriction Diverticulosis DKA (diabetic ketoacidosis) Easy bruising Emphysema lung Emphysema, unspecified Essential hypertension Fall Gastric reflux Gout Heart attack High cholesterol History of edema History of pain when walking History of ulceration Hypothyroid Injury of back Insomnia Iron deficiency anemia Kidney failure Lichen sclerosus Macular degeneration Major depression Migraine Neuropathy Neuropathy On home oxygen therapy Paroxysmal atrial fibrillation Pericardial effusion with cardiac tamponade PVD (peripheral vascular disease) Rash Schizoaffective disorder, bipolar type Seizures Substance abuse Vapes nicotine containing substance Wears dentures Wears glasses Home Medications apixaban 5 mg tablet (Eliquis) 5 mg PO BID a. fib. 12/24/22 [History Last Taken Unknown] atorvastatin 20 mg tablet 20 mg PO DAILY 12/24/22 [History Last Taken Unknown] benazepril 5 mg tablet 5 mg PO DAILY htn 12/24/22 [History Last Taken 01/07/23] empagliflozin 10 mg tablet (Jardiance) 10 mg PO DAILY 12/24/22 [History Last Taken Unknown] famotidine 10 mg tablet 20 mg PO DAILY 12/24/22 [History Last Taken 01/07/23] fluoxetine 20 mg capsule 20 mg PO DAILY 12/24/22 [History Last Taken Unknown] furosemide 20 mg tablet (Lasix) 20 mg PO DAILY 12/24/22 [History Last Taken Unknown] levothyroxine 100 mcg capsule 100 mcg PO DAILY 12/24/22 [History Last Taken 01/07/23] naloxegol 25 mg tablet (Movantik) 25 mg PO QAM 12/24/22 [History Last Taken Unknown] sucralfate 100 mg/mL oral suspension (Carafate) 10 ml PO BID 12/24/22 [History Last Taken Unknown] baclofen 10 mg tablet 10 mg PO TID muscle spasm 12/25/22 [History Last Taken Unknown] divalproex 500 mg tablet,delayed release (Depakote) 500 mg PO QHS 12/25/22 [History Last Taken Unknown] gabapentin 300 mg capsule 300 mg PO 4X/DAY 12/25/22 [History Last Taken 01/07/23] albuterol sulfate 90 mcg/actuation aerosol inhaler 1 inh inhalation PRN PRN shortness of breath or wheezing 12/31/22 [History Last Taken Unknown] meloxicam 7.5 mg tablet 7.5 mg PO DAILY 01/01/23 [History Last Taken Unknown] trazodone 100 mg tablet 100 mg PO QHS 01/01/23 [History Last Taken Unknown] ondansetron 4 mg disintegrating tablet 4 mg PO Q8H PRN PRN Nausea #10 tabs 02/27/23 [Rx Last Taken Unknown] aripiprazole 20 mg tablet 20 mg PO QHS 03/09/23 [History Last Taken Unknown] pantoprazole 40 mg tablet,delayed release 40 mg PO DAILY #30 tabs 03/09/23 [Rx Last Taken Unknown] budesonide-formoterol HFA 80 mcg-4.5 mcg/actuation aerosol inhaler (Symbicort) 2 inh inhalation BID 04/27/23 [History Last Taken Unknown] fluoxetine 40 mg capsule 40 mg PO DAILY 04/27/23 [History Last Taken Unknown] fluticasone propionate 50 mcg/actuation nasal spray,suspension 1 spray intranasal DAILY PRN allergy symptoms 04/27/23 [History Last Taken Unknown] valbenazine 40 mg capsule (Ingrezza) 40 mg PO DAILY 04/27/23 [History Last Taken Unknown] Allergy/AdvReac Type Severity Reaction Status Date / Time aspirin Allergy Mild Hives Verified 06/24/23 19:59 erythromycin base Allergy Mild Hives Verified 06/24/23 19:59 Penicillins Allergy Mild Hives Verified 06/24/23 19:59 polyethylene glycol 3350 Allergy Mild Nausea/Vom/ Verified 06/24/23 19:59 [From Miralax] Diarrhea tramadol Allergy Mild Hives Verified 06/24/23 19:59 tomatoes Allergy unknown Uncoded 04/27/23 11:42 Family History Mother Heart disease Hypertension Cancer Father Brain aneurysm age 40 CVA (cerebral vascular accident) Cancer Brother Colon cancer Surgical History H/O: hysterectomy History of bilateral cataract extraction History of delivery History of cholecystectomy History of lithotripsy Hx of toe surgery Hx of vein stripping Social History Smoking Status: Current every day smoker tobacco type: cigarettes and e- cigarettes Tobacco: How many years used: 18 Electronic Cigarette Use: with nicotine second hand exposure: No alcohol intake: never substance use type: does not use caffeine: Yes ROS <Sruthi Marc RN - Last Filed: 06/24/23 23:33> ROS ED Constitutional Constitutional ED: Denies chills, fever(s) or sweats Eyes Eyes: Denies change in vision ENT ENT ED: Denies rhinorrhea or sore throat Cardiovascular Cardiovascular: Reports chest pain; Denies orthopnea, palpitations or racing heartbeat Respiratory/Chest Respiratory/Chest: Reports cough and dyspnea; Denies orthopnea or sputum Gastrointestinal Gastrointestinal: Denies abdominal pain, diarrhea, nausea or vomiting Genitourinary Genitourinary ED: Denies dysuria, hematuria or urinary frequency Integumentary Denies rash Neurologic Neurologic: Denies headache(s), paresthesias or weakness EXAM <Sruthi Marc RN - Last Filed: 06/24/23 23:33> Physical Exam Narrative Exam Narrative: Patient is awake, alert, poor historian. Const Vital Signs: 06/24/23 19:59 06/24/23 20:05 06/24/23 20:37 Temperature 97.4 F L 97.8 F Temperature Source Temporal Oral Pulse Rate 57 L 52 L Respiratory Rate 19 H 14 Respiratory Effort Normal Blood Pressure 88/57 L 81/36 L Blood Pressure Mean 67 51 Pulse Ox 99 98 Oxygen Delivery Method Room Air Oxygen Flow Rate (L/min) 06/24/23 20:52 06/24/23 22:00 06/24/23 23:00 Temperature 97.7 F L 96.4 F L Temperature Source Oral Axillary Pulse Rate 48 L 58 L 50 L Respiratory Rate 14 18 12 Respiratory Effort Blood Pressure 83/43 L 77/40 L 92/54 L Blood Pressure Mean 56 52 66 Pulse Ox 100 100 100 Oxygen Delivery Method Nasal Cannula Nasal Cannula Nasal Cannula Oxygen Flow Rate (L/min) 2 2 2 06/24/23 23:19 06/24/23 23:20 Temperature 96.4 F L 96.4 F L Temperature Source Axillary Pulse Rate 51 L 53 L Respiratory Rate 12 13 Respiratory Effort Blood Pressure 85/48 L 85/48 L Blood Pressure Mean 60 60 Pulse Ox 100 100 Oxygen Delivery Method Nasal Cannula Oxygen Flow Rate (L/min) 2 Positive well nourished and well developed General Appearance ED: well developed and NAD HEENT Reports dry mucous membranes HEENT Narrative: Mildly dry mucous membranes. normocephalic and atraumatic Mouth ED: Yes dry mucous membranes Mouth: dry mucous membranes Eyes PERRL Neck no JVD Chest Wall inspection of chest normal Chest Narrative: Midsternal chest pressure increases with palpation. Resp normal respiratory effort Auscultation: rhonchi throughout; Negative for rales or wheezes Cardio regular rate, regular rhythm, S1 normal heart sound and S2 normal heart sound Rate: bradycardia GI normal to inspection, nondistended, normoactive bowel sounds, soft to palpation and non-tender Extremity Extremity Narrative: 1+ pitting edema to bilateral lower extremities. General Extremety ED: Yes edema General Extremity: edema Neuro oriented x3 Sensorium / Orientation: awake, alert, oriented to person, oriented to place and oriented to time Motor Exam: strength 5/5 throughout Psych mental status grossly normal Skin no rashes or lesions noted and no wounds Skin Narrative: Bilateral lower extremities shiny Rashes: No rashes noted <Dr. Natalya Pitts MD - Last Filed: 06/24/23 23:34> Physical Exam Const Vital Signs: 06/24/23 19:59 06/24/23 20:05 06/24/23 20:37 Temperature 97.4 F L 97.8 F Temperature Source Temporal Oral Pulse Rate 57 L 52 L Respiratory Rate 19 H 14 Respiratory Effort Normal Blood Pressure 88/57 L 81/36 L Blood Pressure Mean 67 51 Pulse Ox 99 98 Oxygen Delivery Method Room Air Oxygen Flow Rate (L/min) 06/24/23 20:52 06/24/23 22:00 06/24/23 23:00 Temperature 97.7 F L 96.4 F L Temperature Source Oral Axillary Pulse Rate 48 L 58 L 50 L Respiratory Rate 14 18 12 Respiratory Effort Blood Pressure 83/43 L 77/40 L 92/54 L Blood Pressure Mean 56 52 66 Pulse Ox 100 100 100 Oxygen Delivery Method Nasal Cannula Nasal Cannula Nasal Cannula Oxygen Flow Rate (L/min) 2 2 2 06/24/23 23:19 06/24/23 23:20 Temperature 96.4 F L 96.4 F L Temperature Source Axillary Pulse Rate 51 L 53 L Respiratory Rate 12 13 Respiratory Effort Blood Pressure 85/48 L 85/48 L Blood Pressure Mean 60 60 Pulse Ox 100 100 Oxygen Delivery Method Nasal Cannula Oxygen Flow Rate (L/min) 2 MDM <Sruthi Marc RN - Last Filed: 06/24/23 23:33> MDM MDM Narrative Medical decision making narrative: Review of the cardiology note from 12/2022 indicates she had an asystolic cardiac arrest earlier last year, admitted to [facility]. At that time she was noted to be in DKA and had hyperkalemia. Patient placed on site monitor. IV line initiated. Labwork obtained to evaluate for leukocytosis, anemia, and electrolyte derangement. EKG obtained to evaluate for cardiac arrhythmia/ischemia. Chest x-ray obtained to evaluate for acute lung pathology, cardiac size, or mediastinal abnormality. Patient was noted to be hypotensive with systolic BP in the 80s. She is also bradycardic with heart rate in the 50s sinus rhythm. She is given normal saline 500 mL. History & Record Review Discussion w/independent historian: Patient Lab Data Labs: Laboratory Results - last 24 hr 06/24/23 06/24/23 06/24/23 20:30 21:48 22:04 WBC 10.1 RBC 3.68 L Hgb 10.6 L Hct 33.2 L MCV 90.2 MCH 28.8 MCHC 31.9 L RDW Std Deviation 47.3 H RDW Coeff of Penny 14.4 Plt Count 142 L MPV 9.8 Immature Gran % (Auto) 0.500 Neut % (Auto) 65.7 Lymph % (Auto) 20.3 Pershing % (Auto) 8.8 Eos % (Auto) 4.1 Baso % (Auto) 0.6 Absolute Neuts (auto) 6.7 Absolute Lymphs (auto) 2.06 Nucleated RBC % 0 Sodium 137 Potassium 3.9 Chloride 104 Carbon Dioxide 29.0 Anion Gap 4 L BUN 44 H Creatinine 2.39 H Estim Creat Clear Calc 27.77 Est GFR (MDRD) Af Amer 26 L Est GFR (MDRD) Non-Af 22 L BUN/Creatinine Ratio 18.4 Glucose 185 H Lactic Acid 0.7 Calcium 9.1 Total Bilirubin 0.30 Direct Bilirubin 0.10 AST 14 L ALT 17 Alkaline Phosphatase 56 Ammonia 14.0 Troponin I High Sens 8 B-Natriuretic Peptide 35.9 Total Protein 6.5 Albumin 3.2 Globulin 3.3 Urine Color Urine Clarity Urine pH Ur Specific Argillite Urine Protein Urine Glucose (UA) Urine Ketones Urine Occult Blood Urine Nitrite Urine Bilirubin Urine Urobilinogen Ur Leukocyte Esterase Urine RBC Urine WBC Ur Squamous Epith Cells Urine Bacteria Hyaline Casts Urine Mucus Urine Opiates Screen Urine Methadone Screen Ur Barbiturates Screen Valproic Acid 24 L Ur Phencyclidine Scrn Ur Amphetamines Screen MDMA (Ecstasy) Screen U Benzodiazepines Scrn Urine Cocaine Screen U Cannabinoids Screen Ur Drug Screen Comment 06/24/23 06/24/23 22:30 22:40 WBC RBC Hgb Hct MCV MCH MCHC RDW Std Deviation RDW Coeff of Penny Plt Count MPV Immature Gran % (Auto) Neut % (Auto) Lymph % (Auto) Pershing % (Auto) Eos % (Auto) Baso % (Auto) Absolute Neuts (auto) Absolute Lymphs (auto) Nucleated RBC % Sodium Potassium Chloride Carbon Dioxide Anion Gap BUN Creatinine Estim Creat Clear Calc Est GFR (MDRD) Af Amer Est GFR (MDRD) Non-Af BUN/Creatinine Ratio Glucose Lactic Acid Calcium Total Bilirubin Direct Bilirubin AST ALT Alkaline Phosphatase Ammonia Troponin I High Sens 9 B-Natriuretic Peptide Total Protein Albumin Globulin Urine Color Yellow Urine Clarity Clear Urine pH 5.0 Ur Specific Argillite 1.020 Urine Protein 15 H Urine Glucose (UA) 100 H Urine Ketones 5 H Urine Occult Blood Negative Urine Nitrite Negative Urine Bilirubin 3 H Urine Urobilinogen 1 H Ur Leukocyte Esterase 25 H Urine RBC 0 SEEN Urine WBC 0-5 SEEN Ur Squamous Epith Cells 0 SEEN Urine Bacteria 0 SEEN Hyaline Casts 10-25 SEEN Urine Mucus 0 SEEN Urine Opiates Screen POSITIVE H Urine Methadone Screen NEGATIVE Ur Barbiturates Screen NEGATIVE Valproic Acid Ur Phencyclidine Scrn NEGATIVE Ur Amphetamines Screen NEGATIVE MDMA (Ecstasy) Screen POSITIVE H U Benzodiazepines Scrn NEGATIVE Urine Cocaine Screen NEGATIVE U Cannabinoids Screen NEGATIVE Ur Drug Screen Comment Radiography Chest X-Ray - ED: 1 View and CHF Diagnostic Testing: Clinical Impression(s) from Imaging Studies Chest X-Ray 06/24/23 20:19 IMPRESSION: Mild congestive heart failure. Electronically Signed: Gunner Modi MD at 20:57 EDT , EKG Initial EKG: Attestation: I personally reviewed and interpreted this EKG as follows: Interpretation: Sinus Bradycardia Comments: Sinus bradycardia with PACs with heart rate 56. No ischemia or dysrhythmia noted. Differential Diagnosis Chest pain/SOB: ACS and CHF Management Discussion w/another healthcare provider: Other (Dr. Pitts, ED provider.) Treatment and Re-Evaluation :: Patient received 500 mL normal saline bolus for hypotension. Patient remained hypotensive with systolic pressure decreasing to mid 70s and patient becoming increasingly drowsy. She is also noted to be bradycardic with heart rate high 40s to mid 50s. Patient was given Narcan 2 mg without significant effect. An additional normal saline 500 mL bolus was administered with minimal improvement in blood pressure. Norepinephrine ordered and started at low-dose just prior to admission. Patient does report that she normally goes to bed between 8 and 9 PM every night. She has not taken her nighttime medications yet. She remains drowsy but awakens easily and is alert and oriented. Additional lab work was ordered consisting of ammonia level, urinalysis, urine tox screen, valproic acid due to patient being on Depakote, and lactic acid. Lab work and imaging reviewed. CBC shows normal white count of 10.1, hemoglobin 10.6 which is decreased from 11.9 on 06/10/2023. Platelets are 142. Chemistry shows normal sodium at 137, normal potassium 3.9, BUN 44 and creatinine 2.39. 3 on 06/22/2023 shows BUN of 34 and creatinine 1.87. Her GFR today is 22. Glucose is elevated at 185. High-sensitivity troponin is negative at 8. Repeat troponin is negative at 9. BNP is negative at 35.9. Lactic acid is 0.7. Valproic acid is low at 24. Ammonia is normal at 14. Urinalysis is negative for UTI. Urine tox screen is positive for opiates. However patient has prescription for Vicodin. Urine tox screen is also positive for MDMA. Chest x- ray shows moderate cardiac enlargement, normal mediastinum, and mild congestive heart failure. EKG shows sinus bradycardia with a rate of 58. No dysrhythmia or ischemia noted. Upon reevaluation, patient sleeping in bed. Patient remains bradycardic with heart rate mid 50s. Systolic BP in the 90s. Lab work and imaging showed no acute infection. Labs and imaging reviewed with patient. Plan for admission due to bradycardia and hypotension. Patient agreeable with plan. Dr. Pitts spoke with hospitalist regarding admission. Patient seen and evaluated with DIANNA student. I personally interviewed and examined the patient. I was involved in all aspects of patient's orders, interpretation of results, and treatment. Patient presents via EMS secondary to chest pain. Shortly before arrival patient states that she got chest pressure that has since resolved. She tells me that she was at a friend's apartment and the friend told her that she looked pale. She asked her to sit down and called 911. Prehospital EKG is reviewed and reveals no evidence of acute ischemia. Patient does reportedly have a history of cardiac arrest. She told me that this occurred when she was in [place], however on review of records and [employer], she was treated at [facility] and had a cardiac arrest secondary to DKA with significant hyperkalemia. Patient does not know her medication list. We tried to review outside pharmacy records to see what she has had filled recently. Nursing was told that she may have taken a Vicodin around 3 PM. Patient denies having any Vicodin or [place], however she did just have a prescription for [place] filled on June 02 for a 28-day supply by Dr. Sarmiento. Patient does take some medications to help her sleep at night but tells me that she had not yet taken those this evening. Patient sitting upright in bed. She is in no acute distress but does appear sleepy. She will wake up and answer questions for me. Head and neck examination unremarkable with no sign of trauma. Heart is bradycardic and regular. She does have mild anterior chest wall tenderness that is reproducible. Lung sounds are clear. Abdomen is soft and nontender. Neuro exam reveals no focal neurologic deficit. Patient was noted to be hypotensive and bradycardic on arrival. EKG is sinus bradycardia with no evidence of ischemia. Patient was given an IV fluid bolus. CBC was a white count of 10.1 with a hemoglobin of 10.6. Normal differential. Chemistry studies reveal a BUN of 44 and a creatinine of 2.39. It appears her baseline creatinine is around 1.4, however she has had 2 prior lab draws this month which revealed a creatinine 1.82 and a creatinine 1.87. Patient tells me that her primary care provider was worried about her renal function and had been following it closely. LFTs are unremarkable. Lactic acid is normal at 0.7. Ammonia level is normal at 14. Valproic acid level is 24. Initial troponin is 8 with a 2-hour repeat troponin of 9. Urinalysis reveals no obvious sign of infection. Urine tox screen is positive for opiates as well as MDMA. Chest x- ray per my interpretation reveals mild CHF appearance. No significant cardiac enlargement. When patient's blood pressure and heart rate did not significantly change with IV fluids, she was given 2 mg of IV Narcan. This did not significantly change her vital signs. She is given additional IV fluid bolus. I initially ordered Levophed to be started, however nursing staff hung it and patient's blood pressure had improved and it was never initiated. Patient be discussed with hospitalist regarding admission. <Dr. Natalya Pitts MD - Last Filed: 06/24/23 23:34> [facility] Lab Data Attestation: I reviewed the patient's lab results. Labs: Laboratory Results - last 24 hr 06/24/23 06/24/23 06/24/23 20:30 21:48 22:04 WBC 10.1 RBC 3.68 L Hgb 10.6 L Hct 33.2 L MCV 90.2 MCH 28.8 MCHC 31.9 L RDW Std Deviation 47.3 H RDW Coeff of Penny 14.4 Plt Count 142 L MPV 9.8 Immature Gran % (Auto) 0.500 Neut % (Auto) 65.7 Lymph % (Auto) 20.3 Pershing % (Auto) 8.8 Eos % (Auto) 4.1 Baso % (Auto) 0.6 Absolute Neuts (auto) 6.7 Absolute Lymphs (auto) 2.06 Nucleated RBC % 0 Sodium 137 Potassium 3.9 Chloride 104 Carbon Dioxide 29.0 Anion Gap 4 L BUN 44 H Creatinine 2.39 H Estim Creat Clear Calc 27.77 Est GFR (MDRD) Af Amer 26 L Est GFR (MDRD) Non-Af 22 L BUN/Creatinine Ratio 18.4 Glucose 185 H Lactic Acid 0.7 Calcium 9.1 Total Bilirubin 0.30 Direct Bilirubin 0.10 AST 14 L ALT 17 Alkaline Phosphatase 56 Ammonia 14.0 Troponin I High Sens 8 B-Natriuretic Peptide 35.9 Total Protein 6.5 Albumin 3.2 Globulin 3.3 Urine Color Urine Clarity Urine pH Ur Specific Argillite Urine Protein Urine Glucose (UA) Urine Ketones Urine Occult Blood Urine Nitrite Urine Bilirubin Urine Urobilinogen Ur Leukocyte Esterase Urine RBC Urine WBC Ur Squamous Epith Cells Urine Bacteria Hyaline Casts Urine Mucus Urine Opiates Screen Urine Methadone Screen Ur Barbiturates Screen Valproic Acid 24 L Ur Phencyclidine Scrn Ur Amphetamines Screen MDMA (Ecstasy) Screen U Benzodiazepines Scrn Urine Cocaine Screen U Cannabinoids Screen Ur Drug Screen Comment 06/24/23 06/24/23 22:30 22:40 WBC RBC Hgb Hct MCV MCH MCHC RDW Std Deviation RDW Coeff of Penny Plt Count MPV Immature Gran % (Auto) Neut % (Auto) Lymph % (Auto) Pershing % (Auto) Eos % (Auto) Baso % (Auto) Absolute Neuts (auto) Absolute Lymphs (auto) Nucleated RBC % Sodium Potassium Chloride Carbon Dioxide Anion Gap BUN Creatinine Estim Creat Clear Calc Est GFR (MDRD) Af Amer Est GFR (MDRD) Non-Af BUN/Creatinine Ratio Glucose Lactic Acid Calcium Total Bilirubin Direct Bilirubin AST ALT Alkaline Phosphatase Ammonia Troponin I High Sens 9 B-Natriuretic Peptide Total Protein Albumin Globulin Urine Color Yellow Urine Clarity Clear Urine pH 5.0 Ur Specific Argillite 1.020 Urine Protein 15 H Urine Glucose (UA) 100 H Urine Ketones 5 H Urine Occult Blood Negative Urine Nitrite Negative Urine Bilirubin 3 H Urine Urobilinogen 1 H Ur Leukocyte Esterase 25 H Urine RBC 0 SEEN Urine WBC 0-5 SEEN Ur Squamous Epith Cells 0 SEEN Urine Bacteria 0 SEEN Hyaline Casts 10-25 SEEN Urine Mucus 0 SEEN Urine Opiates Screen POSITIVE H Urine Methadone Screen NEGATIVE Ur Barbiturates Screen NEGATIVE Valproic Acid Ur Phencyclidine Scrn NEGATIVE Ur Amphetamines Screen NEGATIVE MDMA (Ecstasy) Screen POSITIVE H U Benzodiazepines Scrn NEGATIVE Urine Cocaine Screen NEGATIVE U Cannabinoids Screen NEGATIVE Ur Drug Screen Comment Radiography Diagnostic Testing: Clinical Impression(s) from Imaging Studies Chest X-Ray 06/24/23 20:19 IMPRESSION: Mild congestive heart failure. Electronically Signed: Gunner Modi MD at 20:57 EDT , Treatment and Re-Evaluation :: Patient received 500 mL normal saline bolus for hypotension. Patient remained hypotensive with systolic pressure decreasing to mid 70s and patient becoming increasingly drowsy. She is also noted to be bradycardic with heart rate high 40s to mid 50s. Patient was given Narcan 2 mg without significant effect. An additional normal saline 500 mL bolus was administered with minimal improvement in blood pressure. Norepinephrine ordered and started at low-dose just prior to admission. Patient does report that she normally goes to bed between 8 and 9 PM every night. She has not taken her nighttime medications yet. She remains drowsy but awakens easily and is alert and oriented. Additional lab work was ordered consisting of ammonia level, urinalysis, urine tox screen, valproic acid due to patient being on Depakote, and lactic acid. Lab work and imaging reviewed. CBC shows normal white count of 10.1, hemoglobin 10.6 which is decreased from 11.9 on 06/10/2023. Platelets are 142. Chemistry shows normal sodium at 137, normal potassium 3.9, BUN 44 and creatinine 2.39. 3 on 06/22/2023 shows BUN of 34 and creatinine 1.87. Her GFR today is 22. Glucose is elevated at 185. High-sensitivity troponin is negative at 8. Repeat troponin is negative at 9. BNP is negative at 35.9. Lactic acid is 0.7. Valproic acid is low at 24. Ammonia is normal at 14. Urinalysis is negative for UTI. Urine tox screen is positive for opiates. However patient has prescription for Vicodin. Urine tox screen is also positive for MDMA. Chest x- ray shows moderate cardiac enlargement, normal mediastinum, and mild congestive heart failure. EKG shows sinus bradycardia with a rate of 58. No dysrhythmia or ischemia noted. Upon reevaluation, patient sleeping in bed. Patient remains bradycardic with heart rate mid 50s. Systolic BP in the 90s. Lab work and imaging showed no acute infection. Labs and imaging reviewed with patient. Plan for admission due to bradycardia and hypotension. Patient agreeable with plan. Dr. Pitts spoke with hospitalist regarding admission. Patient seen and evaluated with DIANNA student. I personally interviewed and examined the patient. I was involved in all aspects of patient's orders, interpretation of results, and treatment. Patient presents via EMS secondary to chest pain. Shortly before arrival patient states that she got chest pressure that has since resolved. She tells me that she was at a friend's apartment and the friend told her that she looked pale. She asked her to sit down and called 911. Prehospital EKG is reviewed and reveals no evidence of acute ischemia. Patient does reportedly have a history of cardiac arrest. She told me that this occurred when she was in [place], however on review of records and [facility], she was treated at [facility] and had a cardiac arrest secondary to DKA with significant hyperkalemia. Patient does not know her medication list. We tried to review outside pharmacy records to see what she has had filled recently. Nursing was told that she may have taken a Vicodin around 3 PM. Patient denies having any Vicodin or [place], however she did just have a prescription for [place] filled on June 02 for a 28-day supply by Dr. Sarmiento. Patient does take some medications to help her sleep at night but tells me that she had not yet taken those this evening. Patient sitting upright in bed. She is in no acute distress but does appear sleepy. She will wake up and answer questions for me. Head and neck examination unremarkable with no sign of trauma. Heart is bradycardic and regular. She does have mild anterior chest wall tenderness that is reproducible. Lung sounds are clear. Abdomen is soft and nontender. Neuro exam reveals no focal neurologic deficit. Patient was noted to be hypotensive and bradycardic on arrival. EKG is sinus bradycardia with no evidence of ischemia. Patient was given an IV fluid bolus. CBC was a white count of 10.1 with a hemoglobin of 10.6. Normal differential. Chemistry studies reveal a BUN of 44 and a creatinine of 2.39. It appears her baseline creatinine is around 1.4, however she has had 2 prior lab draws this month which revealed a creatinine 1.82 and a creatinine 1.87. Patient tells me that her primary care provider was worried about her renal function and had been following it closely. LFTs are unremarkable. Lactic acid is normal at 0.7. Ammonia level is normal at 14. Valproic acid level is 24. Initial troponin is 8 with a 2-hour repeat troponin of 9. Urinalysis reveals no obvious sign of infection. Urine tox screen is positive for opiates as well as MDMA. Chest x- ray per my interpretation reveals mild CHF appearance. No significant cardiac enlargement. When patient's blood pressure and heart rate did not significantly change with IV fluids, she was given 2 mg of IV Narcan. This did not significantly change her vital signs. She is given additional IV fluid bolus. I initially ordered Levophed to be started, however nursing staff hung it and patient's blood pressure had improved and it was never initiated. Patient be discussed with hospitalist regarding admission. Addendum: After the initial IV fluid bolus, patient's blood pressure started to drop again. Additional bolus was ordered, however patient's blood pressure remains with a MAP less than 65 at this time and Levophed will be initiated. Discharge Plan Dx/Rx/DC Orders Clinical Impression: Acute hypotension, History of COPD, History of diabetes mellitus, type II, History of tobacco use, Bradycardia, Chest pain of uncertain etiology, History of hypertension, History of atrial fibrillation, History of CHF (congestive heart failure) Disposition Disposition: Acute Care Hospital [facility]
[2023-06-24] MEDS: 0.9% Normal Saline (500mL Bag) 500 ML 999 ML IV (20:36)
[2023-06-24 20:40] LABS: Absolute Lymphocyte Count 2.06 X10^3/uL (0.83-4.51); Absolute Neutrophil Count 6.7 X10^3/uL (2.0-7.7); Basophil# 0.06 X10^3/uL; Basophil% 0.6 % (0-1); Eosinophil# 0.42 X10^3/uL; Eosinophils% 4.1 % (0-5); Hematocrit 33.2 % (37-47); Hemoglobin 10.6 g/dL (12.0-15.0); Lymphocyte # 2.06 X10^3/ul (0.83-4.51); Lymphocyte % 20.3 % (19-41); Mean Corp Hgb Conc 31.9 g/dL (32-36); Mean Corpuscular Hgb 28.8 pg (27.0-32.0); Mean Corpuscular Volume 90.2 fL (81-99); Mean Platelet Vol. 9.8 fl (6.2-12.0); Monocyte# 0.89 X10^3/uL; Monocyte% 8.8 % (0-10); NRBC Flagged by Analyzer 0 % (0-5); Neutrophil # 6.65 X10^3/uL (2.7-7.7); Neutrophil % 65.7 % (47-70); Platelet Count 142 K/mm3 (150-450); RBC Distribution Width CV 14.4 % (11.6-14.6); RBC Distribution Width SD 47.3 fl (35.1-43.9); Red Blood Count 3.68 M/mm3 (4.2-5.4); White Blood Count 10.1 K/mm3 (4.4-11.0)
[2023-06-24 20:58] LABS: Anion Gap 4 (5-15); BUN 44 mg/dL (7-18); BUN/Creat Ratio 18.4 RATIO (10-20); Calcium,Total 9.1 mg/dL (8.5-10.1); Chloride 104 mmol/L (98-107); Creatinine, Serum 2.39 mg/dL (0.55-1.02); EST Glomerular Filtration Rate 22 mL/min (>60); Est Glom Filt Rate - Afr Amer 26 mL/min (>60); Estimated Creatinine Clearance 27.77 ml/min; Glucose 185 mg/dL (74-106); Potassium 3.9 mmol/L (3.5-5.1); Sodium Level 137 mmol/L (136-145); Troponin-I HS (w/2H Reflex) 8 pg/mL (3.0-54.0)
[2023-06-24] MEDS: Naloxone 2 MG/2 ML Syringe IV (21:15)
[2023-06-24 21:16] LABS: BNP,B-Type NATRIURETIC PEPTIDE 35.9 pg/mL (0-100)
[2023-06-24] MEDS: 0.9% Normal Saline (1000mL) 1,000 ML 999 ML IV (22:00)
[2023-06-24 22:20] LABS: Lactic Acid 0.7 mmol/L (0.4-1.9)
[2023-06-24 22:31] LABS: AST(SGOT) 14 U/L (15-37); Alanine Aminotransfer ALT/SGPT 17 U/L (13-56); Albumin, Serum 3.2 g/dL (3.2-5.0); Alkaline Phosphatase 56 U/L (45-117); Globulin 3.3 g/dL (2.2-4.2); Protein, Total 6.5 g/dL (6.4-8.2)
[2023-06-24 22:33] LABS: Valproic Acid (Depakene) Level 24 ug/mL (50-100)
[2023-06-24 22:36] LABS: Reflex Troponin-HS? (from REC) Y
[2023-06-24 22:38] LABS: Bacteria 0 SEEN /hpf (None Seen); Mucous, Urine 0 SEEN /hpf (<or=2+); Red Blood Cells-Urine 0 SEEN /hpf (0-5); Squamous Epithelial Cells - UA 0 SEEN /hpf (5-10)
[2023-06-24 22:42] LABS: Color, Urine Yellow (Yellow); Glucose, Dipstick 100 mg/dl (Normal); Ketone-Dipstick 5 mg/dl (Negative); Leukocyte Esterase-Dipstick 25 /ul (Negative); Nitrite-Dipstick Negative (Negative); Occult Blood-Urine Negative /ul (Negative); Protein-Dipstick 15 mg/dl (Negative); Urine Clarity Clear (Clear); Urine Urobilinogen 1 mg/dl (Normal)
[2023-06-24 22:56] LABS: Amphetamine Urine VISTA NEGATIVE (<1000 ng/mL); Barbiturate Urine VISTA NEGATIVE (< 200 ng/mL); Benzodiazepine Urine VISTA NEGATIVE (< 200 ng/mL); Cocaine Urine VISTA NEGATIVE (< 300 ng/mL); Ecstacy Urine VISTA POSITIVE (< 500 ng/mL); Methadone Urine VISTA NEGATIVE (< 300 ng/mL); PCP Urine VISTA NEGATIVE (< 25 ng/mL); THC Urine VISTA NEGATIVE (< 50 ng/mL); Urine Bilirubin Dipstick 3 mg/dL (Negative); Vista UDS pH Range 5
[2023-06-24 22:57] LABS: Hyaline Cast 10-25 SEEN /lpf (0-5); White Blood Cells 0-5 SEEN /hpf (0-5)
[2023-06-24 23:10] LABS: Troponin-I HS 9 pg/mL (3.0-54.0)
[2023-06-24] MEDS: Norepinephrine 8 MG in 0.9% Normal Saline (250mL Bag) 242 ML 9.4 MG CONT INF (23:33)
[2023-06-24] MEDS: 0.9% Normal Saline (1000mL) 1,000 ML 200 ML IV (23:35)
--- NOTE | 2023-06-24 23:57 | PCM.HP.STD ---
HPI - General General Date of Admission: 06/24/23 HPI Narrative JADE SWANSON, is a 62 F who presents to the hospital with chest pain that she states was similar to her previous episode of a cardiac arrest. Unfortunately during my evaluation she was very lethargic and was requiring pressor support. Information was gathered from discussion with the ED physician. Since arrival the patient did appear confused as she had stated that her cardiac arrest occurred in [place] but we found documentation that it occurred here in [place] at . She was found to be hypotensive and etiology is unclear, she does have a slight CHELSEY with a creatinine of 2.39, her baseline creatinine is around 1.5. She is on baclofen which can lead to severe hypotension in the setting of acute kidney injury. She has no signs of infection as her UA was unremarkable and her chest x-ray showed mild pulmonary edema. White count is normal and hemoglobin does appear to be at baseline currently. Of note an ABG was obtained while in the ER and it showed acidosis at 7.27 with a pCO2 of 49 and a bicarb of 22.5. A salicylate was obtained in the ER as well which was normal. [facility] Medical History Alcohol use Cardiac arrest Cardiology follow-up encounter CHF (congestive heart failure) COPD (chronic obstructive pulmonary disease) Decreased left ventricular function Diabetes Dietary restriction Diverticulosis DKA (diabetic ketoacidosis) Easy bruising Emphysema lung Emphysema, unspecified Essential hypertension Fall Gastric reflux Gout Heart attack High cholesterol History of edema History of pain when walking History of ulceration Hypothyroid Injury of back Insomnia Iron deficiency anemia Kidney failure Lichen sclerosus Macular degeneration Major depression Migraine Neuropathy Neuropathy On home oxygen therapy Paroxysmal atrial fibrillation Pericardial effusion with cardiac tamponade PVD (peripheral vascular disease) Rash Schizoaffective disorder, bipolar type Seizures Substance abuse Vapes nicotine containing substance Wears dentures Wears glasses Home Medications apixaban 5 mg tablet (Eliquis) 5 mg PO BID a. fib. 12/24/22 [History Last Taken Unknown] atorvastatin 20 mg tablet 20 mg PO DAILY 12/24/22 [History Last Taken Unknown] benazepril 5 mg tablet 5 mg PO DAILY htn 12/24/22 [History Last Taken 01/07/23] empagliflozin 10 mg tablet (Jardiance) 10 mg PO DAILY 12/24/22 [History Last Taken Unknown] famotidine 10 mg tablet 20 mg PO DAILY 12/24/22 [History Last Taken 01/07/23] fluoxetine 20 mg capsule 20 mg PO DAILY 12/24/22 [History Last Taken Unknown] furosemide 20 mg tablet (Lasix) 20 mg PO DAILY 12/24/22 [History Last Taken Unknown] levothyroxine 100 mcg capsule 100 mcg PO DAILY 12/24/22 [History Last Taken 01/07/23] naloxegol 25 mg tablet (Movantik) 25 mg PO QAM 12/24/22 [History Last Taken Unknown] sucralfate 100 mg/mL oral suspension (Carafate) 10 ml PO BID 12/24/22 [History Last Taken Unknown] baclofen 10 mg tablet 10 mg PO TID muscle spasm 12/25/22 [History Last Taken Unknown] divalproex 500 mg tablet,delayed release (Depakote) 500 mg PO QHS 12/25/22 [History Last Taken Unknown] gabapentin 300 mg capsule 300 mg PO 4X/DAY 12/25/22 [History Last Taken 01/07/23] albuterol sulfate 90 mcg/actuation aerosol inhaler 1 inh inhalation PRN PRN shortness of breath or wheezing 12/31/22 [History Last Taken Unknown] meloxicam 7.5 mg tablet 7.5 mg PO DAILY 01/01/23 [History Last Taken Unknown] trazodone 100 mg tablet 100 mg PO QHS 01/01/23 [History Last Taken Unknown] ondansetron 4 mg disintegrating tablet 4 mg PO Q8H PRN PRN Nausea #10 tabs 02/27/23 [Rx Last Taken Unknown] aripiprazole 20 mg tablet 20 mg PO QHS 03/09/23 [History Last Taken Unknown] pantoprazole 40 mg tablet,delayed release 40 mg PO DAILY #30 tabs 03/09/23 [Rx Last Taken Unknown] budesonide-formoterol HFA 80 mcg-4.5 mcg/actuation aerosol inhaler (Symbicort) 2 inh inhalation BID 04/27/23 [History Last Taken Unknown] fluoxetine 40 mg capsule 40 mg PO DAILY 04/27/23 [History Last Taken Unknown] fluticasone propionate 50 mcg/actuation nasal spray,suspension 1 spray intranasal DAILY PRN allergy symptoms 04/27/23 [History Last Taken Unknown] valbenazine 40 mg capsule (Rojasza) 40 mg PO DAILY 04/27/23 [History Last Taken Unknown] Allergy/AdvReac Type Severity Reaction Status Date / Time aspirin Allergy Mild Hives Verified 06/24/23 19:59 erythromycin base Allergy Mild Hives Verified 06/24/23 19:59 Penicillins Allergy Mild Hives Verified 06/24/23 19:59 polyethylene glycol 3350 Allergy Mild Nausea/Vom/ Verified 06/24/23 19:59 [From Miralax] Diarrhea tramadol Allergy Mild Hives Verified 06/24/23 19:59 tomatoes Allergy unknown Uncoded 04/27/23 11:42 Family History Mother Heart disease Hypertension Cancer Father Brain aneurysm age 40 CVA (cerebral vascular accident) Cancer Brother Colon cancer Surgical History H/O: hysterectomy History of bilateral cataract extraction History of delivery History of cholecystectomy History of lithotripsy Hx of toe surgery Hx of vein stripping Social History Smoking Status: Current every day smoker tobacco type: cigarettes and e-cigarettes Tobacco: How many years used: 18 Electronic Cigarette Use: with nicotine second hand exposure: No alcohol intake: never substance use type: does not use caffeine: Yes ROS Review of Systems ROS Unobtainable: due to mental status Vital Signs Vital Signs Vital Signs: 06/24/23 19:59 06/24/23 20:05 06/24/23 20:37 Temperature 97.4 F L 97.8 F Temperature Source Temporal Oral Pulse Rate 57 L 52 L Respiratory Rate 19 H 14 Respiratory Effort Normal Blood Pressure 88/57 L 81/36 L Blood Pressure Mean 67 51 Blood Pressure Source Blood Pressure Location Pulse Ox 99 98 Oxygen Delivery Method Room Air Oxygen Flow Rate (L/min) 06/24/23 20:52 06/24/23 22:00 06/24/23 23:00 Temperature 97.7 F L 96.4 F L Temperature Source Oral Axillary Pulse Rate 48 L 58 L 50 L Respiratory Rate 14 18 12 Respiratory Effort Blood Pressure 83/43 L 77/40 L 92/54 L Blood Pressure Mean 56 52 66 Blood Pressure Source Blood Pressure Location Pulse Ox 100 100 100 Oxygen Delivery Method Nasal Cannula Nasal Cannula Nasal Cannula Oxygen Flow Rate (L/min) 2 2 2 06/24/23 23:19 06/24/23 23:20 06/24/23 23:33 Temperature 96.4 F L 96.4 F L 96.4 F L Temperature Source Axillary Axillary Pulse Rate 51 L 53 L 50 L Respiratory Rate 12 13 12 Respiratory Effort Blood Pressure 85/48 L 85/48 L 79/46 L Blood Pressure Mean 60 60 57 Blood Pressure Source Monitor Blood Pressure Location Left Arm Pulse Ox 100 100 100 Oxygen Delivery Method Nasal Cannula Nasal Cannula Oxygen Flow Rate (L/min) 2 2 Weight Weight: 229 lb 0.964 oz Body Mass Index (BMI) 40.6 Physical Exam Narrative General: Lethargic HEENT: Atraumatic, PERRLA, EOMI, Normocephalic Oral: Dry mucosa Neck: Supple, No JVD Lungs: Diminished, Normal air movement, No rhonchi, No wheeze, No rales Cardiovascular: Regular rate, Regular Rhythm, Normal S1, Normal S2, No murmurs Abdomen: Soft, Non-Distended, No Hepato-splenomegaly Extremities: Trace edema, Capillary Refill Less than 3 Seconds Skin: No rashes, No breakdown Musculoskeletal: No Tenderness to Palpation of Joints or Extremities Neurological: Exam limited due to lethargy Psych/Mental Status: Limited due to lethargy Results Lab / Micro Data 06/25/23 04:55 06/25/23 04:55 Labs: Laboratory Results - last 24 hr 06/24/23 20:30: WBC 10.1, RBC 3.68 L, Hgb 10.6 L, Hct 33.2 L, MCV 90.2, MCH 28.8, MCHC 31.9 L, RDW Std Deviation 47.3 H, RDW Coeff of Penny 14.4, Plt Count 142 L, MPV 9.8, Immature Gran % (Auto) 0.500, Neut % (Auto) 65.7, Lymph % (Auto) 20.3, [place] % (Auto) 8.8, Eos % (Auto) 4.1, Baso % (Auto) 0.6, Absolute Neuts (auto) 6.7, Absolute Lymphs (auto) 2.06, Nucleated RBC % 0, Sodium 137, Potassium 3.9, Chloride 104, Carbon Dioxide 29.0, Anion Gap 4 L, BUN 44 H, Creatinine 2.39 H, Estim Creat Clear Calc 27.77, Est GFR (MDRD) Af Amer 26 L, Est GFR (MDRD) Non-Af 22 L, BUN/Creatinine Ratio 18.4, Glucose 185 H, Calcium 9.1, Total Bilirubin 0.30, Direct Bilirubin 0.10, AST 14 L, ALT 17, Alkaline Phosphatase 56, Troponin I High Sens 8, B-Natriuretic Peptide 35.9, Total Protein 6.5, Albumin 3.2, Globulin 3.3 06/24/23 21:48: Lactic Acid 0.7 06/24/23 22:04: Ammonia 14.0, Valproic Acid 24 L 06/24/23 22:30: Urine Color Yellow, Urine Clarity Clear, Urine pH 5.0, Ur Specific [place] 1.020, Urine Protein 15 H, Urine Glucose (UA) 100 H, Urine Ketones 5 H, Urine Occult Blood Negative, Urine Nitrite Negative, Urine Bilirubin 3 H, Urine Urobilinogen 1 H, Ur Leukocyte Esterase 25 H, Urine RBC 0 SEEN, Urine WBC 0-5 SEEN, Ur Squamous Epith Cells 0 SEEN, Urine Bacteria 0 SEEN, Hyaline Casts 10-25 SEEN, Urine Mucus 0 SEEN, Urine Opiates Screen POSITIVE H, Urine Methadone Screen NEGATIVE, Ur Barbiturates Screen NEGATIVE, Ur Phencyclidine Scrn NEGATIVE, Ur Amphetamines Screen NEGATIVE, MDMA (Ecstasy) Screen POSITIVE H, U Benzodiazepines Scrn NEGATIVE, Urine Cocaine Screen NEGATIVE, U Cannabinoids Screen NEGATIVE, Ur Drug Screen Comment 06/24/23 22:40: Troponin I High Sens 9 Imaging Radiology Impression Chest X-Ray 06/24/23 20:19 IMPRESSION: Mild congestive heart failure. Electronically Signed: Gunner Modi MD at 20:57 EDT , Assessment & Plan Assessment/Plan (1) Chest pain of uncertain etiology: (2) Acute hypotension: PLAN: Plan 1. Chest pain with unknown etiology and hypotension/CHELSEY ? Unclear as to the source of both her chest pain and her hypotension as troponins are normal, EKG is nonischemic ? She has started on pressor support and has responded nicely however she still lethargic ? Given the acidosis and the slight CO2 retention to [address] her on BiPAP and admit to the ICU ? Will consult the buffet manager ? Will provide with a little bit of IV fluids secondary to her CHELSEY, being cognizant of her pulmonary hypertension and likely chronic diastolic CHF ? She was given a dose of Narcan in the ER without any response 2. History of cardiac arrest/paroxysmal A-fib/pulmonary hypertension/chronic diastolic CHF ? Given her hypotension we will hold her blood pressure medications and continue with pressure support ? Given her lethargy we will hold her Eliquis at this time and most of her other home medications ? Will monitor her blood pressure and make adjustments as necessary ? Will provide gentle IV fluid hydration given the CHELSEY 3. Hypothyroidism ? She is supposed to be on Synthroid 100 mcg, given her presentation we will check a TSH 4. Seizure disorder ? Stable ? Continue with her home medications 5. GERD ? Stable ? Can resume her home medications when able to take p.o. 6. Anxiety/depression/chronic pain ? It is possible that her baclofen has led to her hypotension in the setting of an CHELSEY, will hold all of her home medications at this time DVT: SCDs 75 minutes was spent on direct patient care, including documentation as well as chart review and collaboration with colleagues Charges/Coding Visit Charges Inpatient E&M: 15093 Init Hosp L3
[2023-06-25] VITALS (43 sets, daily range): BP systolic 81–159; BP diastolic 42–120; PULSE 51–94; RESP 12–26; TEMP 35.9–37.1; O2SAT 95–100; BMI 40.6
[2023-06-25 00:14] LABS: Allen Test Positive; Base Excess -4 mmol/L (-2 to +2); Bicarbonate 22.5 mmol/L (22-26); Blood Gas Specimen Type ART; Mode Not entered; O2 Delivery Device Cannula; PO2 112 mmHG (75-100); SITE R Radial; SO2 98 % (95-99); Total Carbon Dioxide 24 mmol/L; pH 7.27 (7.35-7.45)
[2023-06-25 00:57] LABS: Acetaminophen (Tylenol) Level 5.2 ug/mL (10.0-30.0); Salicylate < 1.7 mg/dL (2.8-20.0)
[2023-06-25] MEDS: 0.9% Normal Saline (1000mL) 1,000 ML 100 ML IV ×2 (01:30→11:03)
[2023-06-25 04:06] LABS: Allen Test Positive; Base Excess -4 mmol/L (-2 to +2); Bicarbonate 22.5 mmol/L (22-26); Blood Gas Specimen Type ART; Comment 14/6 bipap; Mode Not entered; O2 Delivery Device BiPAP; PO2 89 mmHG (75-100); SITE L Radial; SO2 96 % (95-99); Total Carbon Dioxide 24 mmol/L; pCO2 44.2 mmHg (35-45); pH 7.31 (7.35-7.45)
[2023-06-25 05:10] LABS: Absolute Lymphocyte Count 1.75 X10^3/uL (0.83-4.51); Absolute Neutrophil Count 6.8 X10^3/uL (2.0-7.7); Basophil# 0.05 X10^3/uL; Basophil% 0.5 % (0-1); Eosinophil# 0.38 X10^3/uL; Eosinophils% 3.9 % (0-5); Hematocrit 33.1 % (37-47); Hemoglobin 10.3 g/dL (12.0-15.0); Lymphocyte # 1.75 X10^3/ul (0.83-4.51); Lymphocyte % 17.7 % (19-41); Mean Corp Hgb Conc 31.1 g/dL (32-36); Mean Corpuscular Hgb 28.3 pg (27.0-32.0); Mean Corpuscular Volume 90.9 fL (81-99); Mean Platelet Vol. 10.6 fl (6.2-12.0); Monocyte# 0.82 X10^3/uL; Monocyte% 8.3 % (0-10); NRBC Flagged by Analyzer 0 % (0-5); Neutrophil # 6.79 X10^3/uL (2.7-7.7); Neutrophil % 68.9 % (47-70); Platelet Count 144 K/mm3 (150-450); RBC Distribution Width CV 14.6 % (11.6-14.6); RBC Distribution Width SD 48.7 fl (35.1-43.9); Red Blood Count 3.64 M/mm3 (4.2-5.4); White Blood Count 9.9 K/mm3 (4.4-11.0)
[2023-06-25 05:33] LABS: ALB/GLOB Ratio 0.8 RATIO (0.9-2.4); AST(SGOT) 26 U/L (15-37); Alanine Aminotransfer ALT/SGPT 17 U/L (13-56); Albumin, Serum 2.5 g/dL (3.2-5.0); Alkaline Phosphatase 50 U/L (45-117); Anion Gap 4 (5-15); BUN 41 mg/dL (7-18); BUN/Creat Ratio 20.8 RATIO (10-20); Calcium,Total 8.2 mg/dL (8.5-10.1); Chloride 111 mmol/L (98-107); Creatinine, Serum 1.97 mg/dL (0.55-1.02); EST Glomerular Filtration Rate 27 mL/min (>60); Est Glom Filt Rate - Afr Amer 33 mL/min (>60); Estimated Creatinine Clearance 33.72 ml/min; Globulin 3.2 g/dL (2.2-4.2); Glucose 175 mg/dL (74-106); Potassium 5.1 mmol/L (3.5-5.1); Protein, Total 5.7 g/dL (6.4-8.2); Sodium Level 140 mmol/L (136-145)
--- NOTE | 2023-06-25 07:17 | PCM.PN.HOSP ---
Reason for Visit Reason for Visit: Diagnoses Hypotension, unspecified (06/24/23) Chest pain, unspecified (06/24/23) Subjective Subjective Patient is a 62-year-old lady with multiple comorbidities admitted with chest pain. Patient was apparently found to be hypotensive with acute kidney injury in the ED. Patient was also found to be lethargic. Was found to be acidotic with slight CO2 retention, did receive IV fluid resuscitation, placed on BiPAP and subsequently admitted to the intensive care unit Objective Data Objective Data Vital Signs: Vital Signs Temp Pulse Resp BP Pulse Ox O2 Del Method O2 Flow Rate 97 F L 51 L 14 112/55 L 98 Bi-pap 2 06/25/23 04:00 06/25/23 07:00 06/25/23 07:00 06/25/23 07:00 06/25/23 07:00 06/25/23 07:00 06/25/23 00:00 FiO2 28 06/25/23 07:00 Oxygen Flow Rate (L/min) 2 Oxygen Delivery Method Bi-pap Weight: 104.1 kg Body Mass Index (BMI) 40.6 Intake & Output: Intake and Output for Last 24 Hours 06/23/23 06/24/23 06/25/23 23:59 23:59 23:59 Intake Total 1500 / 1500 364.00 / 364.00 Output Total 450 / 450 Balance 1500 / 1500 -86.00 / -86.00 Lab / Micro Data 06/25/23 04:55 06/25/23 04:55 Labs: Laboratory Results - last 24 hr 06/24/23 20:30: WBC 10.1, RBC 3.68 L, Hgb 10.6 L, Hct 33.2 L, MCV 90.2, MCH 28.8, MCHC 31.9 L, RDW Std Deviation 47.3 H, RDW Coeff of Penny 14.4, Plt Count 142 L, MPV 9.8, Immature Gran % (Auto) 0.500, Neut % (Auto) 65.7, Lymph % (Auto) 20.3, [place] % (Auto) 8.8, Eos % (Auto) 4.1, Baso % (Auto) 0.6, Absolute Neuts (auto) 6.7, Absolute Lymphs (auto) 2.06, Nucleated RBC % 0, Sodium 137, Potassium 3.9, Chloride 104, Carbon Dioxide 29.0, Anion Gap 4 L, BUN 44 H, Creatinine 2.39 H, Estim Creat Clear Calc 27.77, Est GFR (MDRD) Af Amer 26 L, Est GFR (MDRD) Non-Af 22 L, BUN/Creatinine Ratio 18.4, Glucose 185 H, Calcium 9.1, Total Bilirubin 0.30, Direct Bilirubin 0.10, AST 14 L, ALT 17, Alkaline Phosphatase 56, Troponin I High Sens 8, B-Natriuretic Peptide 35.9, Total Protein 6.5, Albumin 3.2, Globulin 3.3 06/24/23 21:48: Lactic Acid 0.7 06/24/23 22:04: Ammonia 14.0, Salicylates < 1.7 L, Acetaminophen 5.2 L, Valproic Acid 24 L 06/24/23 22:30: Urine Color Yellow, Urine Clarity Clear, Urine pH 5.0, Ur Specific [place] 1.020, Urine Protein 15 H, Urine Glucose (UA) 100 H, Urine Ketones 5 H, Urine Occult Blood Negative, Urine Nitrite Negative, Urine Bilirubin 3 H, Urine Urobilinogen 1 H, Ur Leukocyte Esterase 25 H, Urine RBC 0 SEEN, Urine WBC 0-5 SEEN, Ur Squamous Epith Cells 0 SEEN, Urine Bacteria 0 SEEN, Hyaline Casts 10-25 SEEN, Urine Mucus 0 SEEN, Urine Opiates Screen POSITIVE H, Urine Methadone Screen NEGATIVE, Ur Barbiturates Screen NEGATIVE, Ur Phencyclidine Scrn NEGATIVE, Ur Amphetamines Screen NEGATIVE, MDMA (Ecstasy) Screen POSITIVE H, U Benzodiazepines Scrn NEGATIVE, Urine Cocaine Screen NEGATIVE, U Cannabinoids Screen NEGATIVE, Ur Drug Screen Comment 06/24/23 22:40: Troponin I High Sens 9 06/25/23 04:55: WBC 9.9, RBC 3.64 L, Hgb 10.3 L, Hct 33.1 L, MCV 90.9, MCH 28.3, MCHC 31.1 L, RDW Std Deviation 48.7 H, RDW Coeff of Penny 14.6, Plt Count 144 L, MPV 10.6, Immature Gran % (Auto) 0.700, Neut % (Auto) 68.9, Lymph % (Auto) 17.7 L, [place] % (Auto) 8.3, Eos % (Auto) 3.9, Baso % (Auto) 0.5, Absolute Neuts (auto) 6.8, Absolute Lymphs (auto) 1.75, Nucleated RBC % 0, Sodium 140, Potassium 5.1, Chloride 111 H, Carbon Dioxide 25.0, Anion Gap 4 L, BUN 41 H, Creatinine 1.97 H, Estim Creat Clear Calc 33.72, Est GFR (MDRD) Af Amer 33 L, Est GFR (MDRD) Non-Af 27 L, BUN/Creatinine Ratio 20.8 H, Glucose 175 H, Calcium 8.2 L, Total Bilirubin 0.30, AST 26, ALT 17, Alkaline Phosphatase 50, Total Protein 5.7 L, Albumin 2.5 L, Globulin 3.2, Albumin/Globulin Ratio 0.8 L, TSH 0.70 ABG Data ABG results: ABG 06/25/23 06/25/23 00:10 04:02 Specimen Type ART ART Sample Site R Radial L Radial pH 7.27 L 7.31 L Bicarbonate Actual 22.5 22.5 Total CO2 24 24 Base Excess -4 L -4 L O2 Saturation 98 96 O2 % 3.0 28.0 ABG pCO2 49.0 H 44.2 ABG pO2 112 H 89 Perez Test Positive Positive O2 Delivery Device Cannula BiPAP Vent Mode Not entered Not entered Clinical Comments 19/08 bipap Radiography Diagnostic Testing: Radiology Impression Chest X-Ray 06/24/23 20:19 IMPRESSION: Mild congestive heart failure. Electronically Signed: Gunner Modi MD at 20:57 EDT , Physical Exam Narrative GENERAL: Patient on BiPAP HEENT: Atraumatic; normocephalic EYES; Anicteric, Normal Conjunctiva NECK; supple, normal thyroid, RESPIRATORY: Diminished to auscultation, bilateral wheezes CARDIOVASCULAR: Regular S1 S2, GI: soft, normoactive bowel sounds, : No Renal angle tenderness; EXTREMITIES: No edema, no clubbing, MUSCULOSKELETAL: no muscle wasting NEURO: Awake no lateralizing signs SKIN: No Rash PSYCH; flat affect Assessment & Plan Assessment/Plan (1) Chest pain of uncertain etiology: (2) Acute hypotension: PLAN: Plan ' Patient is a 62-year-old lady with multiple comorbidities admitted with chest pain. Patient was apparently found to be hypotensive with acute kidney injury in the ED. Patient was also found to be lethargic. Was found to be acidotic with slight CO2 retention, did receive IV fluid resuscitation, placed on BiPAP and subsequently admitted to the intensive care unit 1. Chest pain ? Patient serial cardiac enzymes so far negative to date EKG obtained on admission did not show any evidence of ischemia. Admitted to monitored bed for continuous telemetry monitoring. Ordered D-dimer if positive will proceed to obtain lower extremity ultrasound as well as VQ scan 2. Hypotension ? Secondary to dehydration patient was found to have acute kidney injury being resuscitated with IV fluid 3. Acute encephalopathy (toxic and metabolic) Patient UDS was positive for opioid as well as MDMA. Also presented with acute kidney injury as well as CO2 retention 4. Acute hypercapnic and hypoxic respiratory failure ? With lethargy patient was placed on BiPAP admitted to the intensive care unit. Patient level of sensorium improving. Chest x-ray obtained on admission demonstrated vascular congestion 5. Acute kidney injury Superimposed on chronic kidney disease stage IIIa baseline creatinine 1.8 creatinine on admission was 2.39 6. Acute on chronic chronic congestive heart failure with preserved ejection fraction ? Echo from 02/10/2023 demonstrated EF of 65% with diastolic dysfunction. Chest x-ray did show vascular congestion. Patient started on diuretic therapy in addition to fluid restriction 7. Hypothyroidism - Patient is on levothyroxine home dose continued 8. History of pericardial effusion with pericardial tamponade 9. Dyslipidemia -Patient is on statin therapy, continued at home dose 10. Previous history of cardiac arrest ? Successfully resuscitated using ACLS 11. Paroxysmal A-fib ? Rate controlled on systemic anticoagulation with apixaban 12. Schizoaffective disorder ? Complicating care. Did continue patient home medications 13. GERD ? On PPI 14.COPD with acute exacerbation ? Started patient on bronchodilator treatment in addition to systemic steroids 15. Anemia - Secondary to chronic disorder monitoring H&H and transfuse if patient becomes symptomatic or hemoglobin falls below 7 16. Seizure disorder ? Patient is on valproic acid did continue 17. DVT prophylaxis ? On apixaban Time spent in the patient's overall evaluation,decision-making process, review of diagnostic data, adjustment of management, discussion with other providers, nursing nursing and ancillary staff involved in patient's care documentation, 52 Minutes Charges/Coding Visit Charges Inpatient E&M: 20094 Subs Hosp L3
[2023-06-25] MEDS: Albuterol 2.5 MG/3 ML VIAL.NEB. INHALATION ×3 (07:24→18:40)
[2023-06-25] MEDS: Budesonide Respules 0.5 MG/2 ML AMPUL.NEB. INHALATION ×2 (07:24→18:40)
--- NOTE | 2023-06-25 07:50 | CPS ---
Rt talked to RN, pt wide awake and talking. Pt states she wanted to make a phone call. This RT took pt on bipap and placed pt on 2L NC. RN aware.
--- NOTE | 2023-06-25 08:02 | ECHOCS_ITS ---
Reason For Study: CHF Procedure This was a 2D Doppler, Color Flow transthoracic echocardiogram. Contrast injection was performed. Exam performed portable in ICU/CCU. Left Ventricle Normal LV size. Left ventricular systolic function is normal. The estimated ejection fraction is 65 %. Normal diastology for age. No regional wall motion abnormalities noted. Right Ventricle Normal RV size. Normal systolic function. Atria Normal left atrium. Normal right atrium. Mitral Valve The mitral valve is structurally normal. No prolapse or stenosis seen. Mild (1+) mitral valve insufficiency. Tricuspid Valve Normal tricuspid valve. Mild to moderate (1-2+) tricuspid valve insufficiency. Pulmonary artery systolic pressure is 46 mmHg. Aortic Valve Trisinus/trileaflet aortic valve. Mild focal aortic valve thickening. Pulmonic Valve The pulmonic valve is not well visualized. Great Vessels Normal aortic root. Pericardium/Pleural No pericardial effusion. Medication Diluted definity 2ml given slow IV push to enhance endocardial definition. MMode/2D Measurements & Calculations LVIDd: 4.1 cm IVSd: 0.93 cm Ao root diam: 2.1 cm LVIDs: 2.9 cm LVPWd: 0.85 cm RVDd: 4.0 cm FS: 28.2 % LAV(MOD-bp): 54.9 ml LVAd ap4: 33.4 cm2 SV(MOD-sp4): 80.6 ml LAV(MOD-bp) Indexed: 26.8 ml/m2 LVLd ap4: 7.3 cm LAV(MOD-sp2): 59.8 ml EDV(MOD-sp4): 122.9 ml LAV(MOD-sp4): 45.2 ml EDV(sp4-el): 130.0 ml LVAs ap4: 18.1 cm2 LVLs ap4: 6.4 cm ESV(MOD-sp4): 42.3 ml ESV(sp4-el): 43.8 ml EF(MOD-sp4): 65.6 % EF(sp4-el): 66.3 % SV(sp4-el): 86.2 ml LA A4 area: 17.2 cm2 LA dimension(2D): 3.4 cm RA A4 area: 11.6 cm2 Time Measurements MV dec time: 0.24 sec Doppler Measurements & Calculations MV E max antonio: 111.0 cm/sec Lat Peak E' Antonio: 8.9 cm/sec Med Peak E' Antonio: 9.1 cm/sec MV A max antonio: 92.2 cm/sec E/E' lat: 12.5 E/E' med: 12.2 MV E/A: 1.2 MV dec slope: 460.0 cm/sec2 Ao V2 max: 159.2 cm/sec LV V1 max: 149.0 cm/sec Ao max P.1 mmHg LV V1 max P.9 mmHg Ao V2 mean: 104.5 cm/sec Ao mean P.0 mmHg Ao V2 VTI: 36.6 cm PA V2 max: 112.9 cm/sec TR max antonio: 278.1 cm/sec TR max P.9 mmHg ECHO/Echo Complete W/ Contrast Interpretation Summary The estimated ejection fraction is 65 %. Mild (1+) mitral valve insufficiency. Mild to moderate (1-2+) tricuspid valve insufficiency. Pulmonary artery systolic pressure is 46 mmHg. Contrast injection was performed. Ordering Physician: Elliot Abraham Referring Physician: Eric Marion Performed By: Enriqueta Lopez, MODE, RVT
--- NOTE | 2023-06-25 08:29 | PCMCONS.TICU ---
HPI Consult Data Date of Consult: 06/25/23 HPI Narrative HPI Narrative: HPI: 62yo F w/ COPD, h/o cardiac arrest, CHF, Afib, schizoaffective d/o, seizure d/o, h/o pericardial effusion, chronic pain, tobacco use, obesity who was admitted with AMS, chest tightness, and hypotension. She apparently developed sudden onset chest tightness yesterday while preparing dinner along with dyspnea prompting here to come here. She reported having some congestion but no worsening of baseline cough, or fevers/chills. On arrival here she was apparently lethargic, hypoxic, and hypotensive. BP did not improve with IVF and so she was started on pressors. She also had notable wheezing and was started on IV steroids, nebs. Initially on BiPAP, but now improved this AM and transitioned to NC. Overall feels breathing has improved now. Continues to smoke ~0.5 ppd cigarettes and also vapes nicotine. Denies EOH. ROS: 12-point ROS negative except as per HPI PFSH Medical History Alcohol use Cardiac arrest Cardiology follow-up encounter CHF (congestive heart failure) COPD (chronic obstructive pulmonary disease) Decreased left ventricular function Diabetes Dietary restriction Diverticulosis DKA (diabetic ketoacidosis) Easy bruising Emphysema lung Emphysema, unspecified Essential hypertension Fall Gastric reflux Gout Heart attack High cholesterol History of edema History of pain when walking History of ulceration Hypothyroid Injury of back Insomnia Iron deficiency anemia Kidney failure Lichen sclerosus Macular degeneration Major depression Migraine Neuropathy Neuropathy On home oxygen therapy Paroxysmal atrial fibrillation Pericardial effusion with cardiac tamponade PVD (peripheral vascular disease) Rash Schizoaffective disorder, bipolar type Seizures Substance abuse Vapes nicotine containing substance Wears dentures Wears glasses Home Medications apixaban 5 mg tablet (Eliquis) 5 mg PO BID a. fib. 12/24/22 [History Last Taken Unknown] atorvastatin 20 mg tablet 20 mg PO DAILY 12/24/22 [History Last Taken Unknown] benazepril 5 mg tablet 5 mg PO DAILY htn 12/24/22 [History Last Taken 01/07/23] empagliflozin 10 mg tablet (Jardiance) 10 mg PO DAILY 12/24/22 [History Last Taken Unknown] famotidine 10 mg tablet 20 mg PO DAILY 12/24/22 [History Last Taken 01/07/23] fluoxetine 20 mg capsule 20 mg PO DAILY 12/24/22 [History Last Taken Unknown] furosemide 20 mg tablet (Lasix) 20 mg PO DAILY 12/24/22 [History Last Taken Unknown] levothyroxine 100 mcg capsule 100 mcg PO DAILY 12/24/22 [History Last Taken 01/07/23] naloxegol 25 mg tablet (Movantik) 25 mg PO QAM 12/24/22 [History Last Taken Unknown] sucralfate 100 mg/mL oral suspension (Carafate) 10 ml PO BID 12/24/22 [History Last Taken Unknown] baclofen 10 mg tablet 10 mg PO TID muscle spasm 12/25/22 [History Last Taken Unknown] divalproex 500 mg tablet,delayed release (Depakote) 500 mg PO QHS 12/25/22 [History Last Taken Unknown] gabapentin 300 mg capsule 300 mg PO 4X/DAY 12/25/22 [History Last Taken 01/07/23] albuterol sulfate 90 mcg/actuation aerosol inhaler 1 inh inhalation PRN PRN shortness of breath or wheezing 12/31/22 [History Last Taken Unknown] meloxicam 7.5 mg tablet 7.5 mg PO DAILY 01/01/23 [History Last Taken Unknown] trazodone 100 mg tablet 100 mg PO QHS 01/01/23 [History Last Taken Unknown] ondansetron 4 mg disintegrating tablet 4 mg PO Q8H PRN PRN Nausea #10 tabs 02/27/23 [Rx Last Taken Unknown] aripiprazole 20 mg tablet 20 mg PO QHS 03/09/23 [History Last Taken Unknown] pantoprazole 40 mg tablet,delayed release 40 mg PO DAILY #30 tabs 03/09/23 [Rx Last Taken Unknown] budesonide-formoterol HFA 80 mcg-4.5 mcg/actuation aerosol inhaler (Symbicort) 2 inh inhalation BID 04/27/23 [History Last Taken Unknown] fluoxetine 40 mg capsule 40 mg PO DAILY 04/27/23 [History Last Taken Unknown] fluticasone propionate 50 mcg/actuation nasal spray,suspension 1 spray intranasal DAILY PRN allergy symptoms 04/27/23 [History Last Taken Unknown] valbenazine 40 mg capsule (Ingrezza) 40 mg PO DAILY 04/27/23 [History Last Taken Unknown] Allergy/AdvReac Type Severity Reaction Status Date / Time aspirin Allergy Mild Hives Verified 06/24/23 19:59 erythromycin base Allergy Mild Hives Verified 06/24/23 19:59 Penicillins Allergy Mild Hives Verified 06/24/23 19:59 polyethylene glycol 3350 Allergy Mild Nausea/Vom/ Verified 06/24/23 19:59 [From Miralax] Diarrhea tramadol Allergy Mild Hives Verified 06/24/23 19:59 tomato Allergy Food Verified 06/25/23 07:08 Allergy Family History Mother Heart disease Hypertension Cancer Father Brain aneurysm age 40 CVA (cerebral vascular accident) Cancer Brother Colon cancer Surgical History H/O: hysterectomy History of bilateral cataract extraction History of delivery History of cholecystectomy History of lithotripsy Hx of toe surgery Hx of vein stripping Social History Smoking Status: Current every day smoker tobacco type: cigarettes and e-cigarettes Tobacco: How many years used: 18 Electronic Cigarette Use: with nicotine second hand exposure: No alcohol intake: never substance use type: does not use caffeine: Yes Objective Data Objective Data Vital Signs: Vital Signs Last response Temperature 36.1 C L 06/25/23 04:00 Temperature Source Temporal 06/25/23 04:00 Pulse Rate 51 L 06/25/23 07:24 Respiratory Rate 14 06/25/23 07:24 Respiratory Effort Non-Labored 06/25/23 06:12 Respiratory Depth Shallow 06/25/23 06:12 Respiratory Pattern Normal 06/25/23 07:24 Blood Pressure 112/55 L 06/25/23 07:00 Blood Pressure Mean 74 06/25/23 07:00 Blood Pressure Source Monitor 06/25/23 07:00 Blood Pressure Position Supine 06/25/23 07:00 Blood Pressure Location Left Arm 06/25/23 07:00 Pulse Ox 100 06/25/23 07:50 Oxygen Delivery Method Nasal Cannula 06/25/23 07:50 Oxygen Flow Rate (L/min) 2 06/25/23 07:50 Fraction of Inspired Oxygen (FIO2) 28 06/25/23 07:24 I&O: I&O Last 24 Hours 06/24/23 06/24/23 06/25/23 11:59 23:59 11:59 Intake Total 1500 / 1500 364.00 / 364.00 Output Total 450 / 450 Balance 1500 / 1500 -86.00 / -86.00 I&O: Total Stay 06/24/23 19:58 thru 06/25/23 07:00 Intake Total 1864.00 Output Total 450 Balance 1414.00 Current Meds Ordered / Administered: Current meds ordered / Administered Generic Name Dose Route Start Last Admin Trade Name Freq PRN Reason Stop Dose Admin Albuterol Sulfate 2.5 mg 06/25/23 01:30 06/25/23 07:24 Albuterol 2.5 Mg/3 Ml Vial.Neb. INHALATION 2.5 mg Q6HWA.RT PAIGE Administration Albuterol/Ipratropium 3 ml 06/25/23 08:15 Ipratropium/Albuterol Sulfate 3 Ml Ampul.Neb INHALATION Q4H.RT PAIGE Budesonide 0.5 mg 06/25/23 01:30 06/25/23 07:24 Budesonide Respules 0.5 Mg/2 Ml Ampul.Neb. INHALATION 0.5 mg Q12H.RT PAIGE Administration Divalproex Sodium 500 mg 06/25/23 22:00 Divalproex Sodium 250 Mg Tablet PO QHS PAIGE Furosemide 40 mg 06/25/23 10:00 Furosemide 40 Mg/4 Ml Vial IV BID@1000,1800 PAIGE Guaifenesin 1,200 mg 06/25/23 10:00 Guaifenesin 1,200 Mg Tablet PO BID PAIGE Norepinephrine Bitartrate 8 mg 250 mls @ 9.375 mls/hr 06/24/23 22:05 06/25/23 07:00 / Sodium Chloride CONT INF 2 mcg/min .[id number] PAIGE 3.8 mls/hr Titration Protocol 5 MCG/MIN Sodium Chloride 1,000 mls @ 100 mls/hr 06/25/23 01:04 06/25/23 01:30 IV 100 mls/hr .Q10H PAIGE Administration Sodium Chloride 250 mls @ 15 mls/hr 06/25/23 01:09 IV .[id number] PRN Additional IVPB Infusion Sodium Chloride 250 mls @ 15 mls/hr 06/25/23 01:09 IV .[id number] PRN Saline Flush Levofloxacin 750 mg 06/25/23 08:30 Levofloxacin 750 Mg Tablet PO 06/25/23 08:31 X1 ONE Levofloxacin 750 mg 06/27/23 10:00 Levofloxacin 750 Mg Tablet PO 06/29/23 10:01 Q48 [facility] Levothyroxine Sodium 100 mcg 06/25/23 06:00 06/25/23 05:20 Levothyroxine 100 Mcg Tablet PO Not Given DAILY@0600 [facility] Methylprednisolone 40 mg 06/25/23 08:15 Methylprednisolone 40 Mg/Ml Vial IV 06/26/23 06:01 Q8 [facility] Pantoprazole Sodium 40 mg 06/25/23 10:00 Pantoprazole Sodium 40 Mg Tablet PO DAILY [facility] Prednisone 40 mg 06/27/23 08:00 Prednisone 20 Mg Tablet PO DAILY@0800 [facility] Sodium Chloride 10 - 40 ml 06/25/23 01:09 0.9% Saline Lock 10 Ml Syringe IV UD PRN SALINE FLUSH Sucralfate 1 gm 06/25/23 10:00 Sucralfate 1 Gm Tablet PO BID [facility] Lab / Micro Data 06/25/23 04:55 06/25/23 04:55 Labs: Laboratory Results - last 24 hr 06/24/23 20:30: WBC 10.1, RBC 3.68 L, Hgb 10.6 L, Hct 33.2 L, MCV 90.2, MCH 28.8, MCHC 31.9 L, RDW Std Deviation 47.3 H, RDW Coeff of Penny 14.4, Plt Count 142 L, MPV 9.8, Immature Gran % (Auto) 0.500, Neut % (Auto) 65.7, Lymph % (Auto) 20.3, [place] % (Auto) 8.8, Eos % (Auto) 4.1, Baso % (Auto) 0.6, Absolute Neuts (auto) 6.7, Absolute Lymphs (auto) 2.06, Nucleated RBC % 0, Sodium 137, Potassium 3.9, Chloride 104, Carbon Dioxide 29.0, Anion Gap 4 L, BUN 44 H, Creatinine 2.39 H, Estim Creat Clear Calc 27.77, Est GFR (MDRD) Af Amer 26 L, Est GFR (MDRD) Non-Af 22 L, BUN/Creatinine Ratio 18.4, Glucose 185 H, Calcium 9.1, Total Bilirubin 0.30, Direct Bilirubin 0.10, AST 14 L, ALT 17, Alkaline Phosphatase 56, Troponin I High Sens 8, B-Natriuretic Peptide 35.9, Total Protein 6.5, Albumin 3.2, Globulin 3.3 06/24/23 21:48: Lactic Acid 0.7 06/24/23 22:04: Ammonia 14.0, Salicylates < 1.7 L, Acetaminophen 5.2 L, Valproic Acid 24 L 06/24/23 22:30: Urine Color Yellow, Urine Clarity Clear, Urine pH 5.0, Ur Specific Clutier 1.020, Urine Protein 15 H, Urine Glucose (UA) 100 H, Urine Ketones 5 H, Urine Occult Blood Negative, Urine Nitrite Negative, Urine Bilirubin 3 H, Urine Urobilinogen 1 H, Ur Leukocyte Esterase 25 H, Urine RBC 0 SEEN, Urine WBC 0-5 SEEN, Ur Squamous Epith Cells 0 SEEN, Urine Bacteria 0 SEEN, Hyaline Casts 10-25 SEEN, Urine Mucus 0 SEEN, Urine Opiates Screen POSITIVE H, Urine Methadone Screen NEGATIVE, Ur Barbiturates Screen NEGATIVE, Ur Phencyclidine Scrn NEGATIVE, Ur Amphetamines Screen NEGATIVE, MDMA (Ecstasy) Screen POSITIVE H, U Benzodiazepines Scrn NEGATIVE, Urine Cocaine Screen NEGATIVE, U Cannabinoids Screen NEGATIVE, Ur Drug Screen Comment 06/24/23 22:40: Troponin I High Sens 9 06/25/23 04:55: WBC 9.9, RBC 3.64 L, Hgb 10.3 L, Hct 33.1 L, MCV 90.9, MCH 28.3, MCHC 31.1 L, RDW Std Deviation 48.7 H, RDW Coeff of Penny 14.6, Plt Count 144 L, MPV 10.6, Immature Gran % (Auto) 0.700, Neut % (Auto) 68.9, Lymph % (Auto) 17.7 L, [place] % (Auto) 8.3, Eos % (Auto) 3.9, Baso % (Auto) 0.5, Absolute Neuts (auto) 6.8, Absolute Lymphs (auto) 1.75, Nucleated RBC % 0, Sodium 140, Potassium 5.1, Chloride 111 H, Carbon Dioxide 25.0, Anion Gap 4 L, BUN 41 H, Creatinine 1.97 H, Estim Creat Clear Calc 33.72, Est GFR (MDRD) Af Amer 33 L, Est GFR (MDRD) Non-Af 27 L, BUN/Creatinine Ratio 20.8 H, Glucose 175 H, Calcium 8.2 L, Total Bilirubin 0.30, AST 26, ALT 17, Alkaline Phosphatase 50, Total Protein 5.7 L, Albumin 2.5 L, Globulin 3.2, Albumin/Globulin Ratio 0.8 L, TSH 0.70 ABG Data ABG results: ABG 06/25/23 06/25/23 00:10 04:02 Specimen Type ART ART Sample Site R Radial L Radial pH 7.27 L 7.31 L Bicarbonate Actual 22.5 22.5 Total CO2 24 24 Base Excess -4 L -4 L O2 Saturation 98 96 O2 % 3.0 28.0 ABG pCO2 49.0 H 44.2 ABG pO2 112 H 89 Perez Test Positive Positive O2 Delivery Device Cannula BiPAP Vent Mode Not entered Not entered Clinical Comments 14 bipap Imaging Radiology Impression Chest X-Ray 06/24/23 20:19 IMPRESSION: Mild congestive heart failure. Electronically Signed: Gunner Modi MD at 20:57 EDT , Assessment and Plan . Assessment and plan: Physical Exam: Gen - NAD, obese HEENT - MMM. Sclera anicteric Resp - +wheezing, diminished BS. Breathing nonlabored CV - RRR. No m/g/r Abd - Soft, NT, ND Ext - No c/c. +edema Skin - No rashes? Neuro - Grossly nonfocal. Drowsy but arousable, answers questions appropriately I have reviewed the pertinent vital sign, laboratory, and imaging data. ASSESSMENT: # Acute hypoxic and hypercapneic respiratory failure # COPD exacerbation # Chest pain # Acute encephalopathy # Hypotension # CHELSEY on CKD # Afib # CHF/pulm HTN # h/o cardiac arrest # Seizure d/o # Chronic pain # h/o pericardial effusion # Anemia # Schizoaffective disorder # UDS positive for opiates/MDMA # Thrombocytopenia # Obesity # Tobacco abuse PLAN: -On 2L NC, wean to keep sats > 90%. Cont BiPAP with naps/sleep for now -Wean levophed to keep MAP > 65 -Started on gentle diuresis, monitor UOP -IV steroids, nebs -Empiric levaquin, f/u Cx. COVID/viral panel neg -Check dimer, will need VTE r/o if elevated -Lactate, trop wnl -Cont depakote -Follow CBC FEN/GI: NPO Proph DVT/GI: Can restart home eliquis when stable Critical Care Time: 60 mins The entirety of this encounter was done via Telemedicine
[2023-06-25] MEDS: Furosemide 40 MG/4 ML Vial IV ×2 (08:33→17:15)
[2023-06-25] MEDS: Sucralfate 1 GM Tablet PO ×2 (08:33→20:30)
[2023-06-25] MEDS: Pantoprazole Sodium 40 MG Tablet PO (08:34)
[2023-06-25 08:39] LABS: D-Dimer Quantitative (DVT/PE) 0.55 FEU/ug/m (0.27-0.49)
[2023-06-25 08:46] LABS: BNP,B-Type NATRIURETIC PEPTIDE 74.2 pg/mL (0-100)
[2023-06-25] MEDS: guaiFENesin 1,200 MG Tablet 1200 MG PO (08:53)
[2023-06-25] MEDS: levoFLOXacin 750 MG Tablet PO (08:53)
--- NOTE | 2023-06-25 10:43 | CASEMGMT ---
Addendum entered by Noelle Jauregui 06/25/23 16:32: Call received from pt's sister, Elvira, who initially stated pt does not want palliative care and she does not want her to have it either. Elvira then came in to [facility] to visit w/pt and RN CM to room to talk w/pt, pt's mom, and Elvira. Further info re: palliative provided and questions answered. They all (pt, mom, and Elvira) interested in a referral. Pt asks for palliative to call her sister, Elvira, to discuss palliative care further w/her before signing on. Referral sent to palliative via secured e-mail and msg sent for them to call Elvira. RN CM further discussed therapy with pt and family. They all decided they would like pt to have OP therapy and pt agreeable. Several family members state they would be able to take pt to OP therapy appts. Pt may also be interested in getting therapy @ [facility]. Script prepared for OP therapy and placed on pt's chart. MD to sign and script to be provided to pt @ discharge. This was also added to Green sheet on chart. Pt and family deny having other discharge planning needs/concerns and thanked this RN CM for info/assistance. Addendum entered by Noelle Jauregui 06/25/23 16:15: Therapy has worked w/pt. Per Niharika, pt did well w/therapy today and ambulated in the hallway. Additional therapy is recommended, but pt ambulates in the community and is not homebound. RN CM to room. Pt states she feels safe to discharge home alone when she is medically ready to discharge from the hospital. Discussed HHC and homebound criteria. Pt states she is not homebound and does not think she will be when she returns home. Discussed OP therapy. Pt states is not interested w/OP therapy at this time. Made aware to f/u with PCP if she changes her mind once she returns home. Per Dr Abraham, he anticipates pt will discharge home over the weekend. Script for shower chair sent to [facility] via [employer] and also faxed. They are to contact pt once it is processed to discuss delivery. Pt made aware and voices appreciation. Pt states she has a pulse ox @ home but it is not working and she needs a new one, but cannot afford it. Pulse ox provided to pt at this time. Per [facility] Palliative screening, pt meets criteria for Palliative referral. HAKEEM DELUNA discussed Palliative care w/pt and she is interested in a referral. Order received from Dr Abraham for same. HAKEEM DELUNA made aware pt has further questions about Palliative care and went back to room. Pt's mother @ bedside. Further questions answered. Pt's mother feels palliative care is a good idea and will be helpful and pt agreeable. Original Note: RN?CM?HEAD INSPECTOR AND CENTER MARKER?CM?to room to meet with patient for initial transition planning/care coordination?assessment.?RN?CM?introduced self and role at [facility].? Pt voices understanding and consents to?assessment?at this time.? Pt resting in bed in no distress at this time.? Elijah Hamptony, and sis-in-law, Jayna, @ bedside and pt agreeable to them being present during assessment. Pt is A/O at this time and answers all questions appropriately.?? Care providers, pharmacy, and demographics verified/updated at this time. PCP: Eric Marion @ [facility] Specialists: Sherrie Bonilla, Loriandi hodge Preferred Pharmacy: [facility] Insurance: [facility] Dual Prescription Benefit:?yes Living Will/HPOA:?Pt does not currently have LW/HCPOA and would like to complete. Germaine JOHNSON, made aware. Pt states she would like her sister, Elvira, to be primary POA and her bro, Tariq, to be 1st alt. LNOK: Pt has a daughter, Sherrie, who lives in [place] (she does not know pt is in the hospital). She also has a son who she doesn't talk to. Pt has 4 living siblings: Tariq Felix, Kelvin and Alejandra. (Kelvin and Alejandra both live in [place]) Living Arrangements: Lives alone @ [facility]th [facility] w[facility]vator access. @ baseline, pt is indep w/ADL's, IADL's, and manages her own medications. She uses a rollator @ baseline. Transportation: Pt does not drive. [facility] for appts. Sister, Elvira for grocery shopping. Family will take her home @ d/c, if she is able to return home. DME: States has the following DME:?rollator, cane, medical alert, O2 through [facility]--pt states she typically uses it @ 2l/m during the day PRN and always uses @ HS. Pt has concentrator and portable tanks and family can bring in @ dc for her to go home on. She would like a shower chair w/back rest and would like to get it from [facility]. Made aware, if she is able to return home, script can be sent to [facility] and they will deliver it to her home next week. She voices understanding. Call to Noah @ [facility]. Current O2 orders are 2 l/m contin. Pt states no need for further DME at this time.? HHC/SNF: No hx of SNF. Has had HHC in the past. CM: Pt has a CM thru [facility]. She qualifies for aides but no staffing available in the area. Pt receives 14 meals/wk from [employer]. Discussed discharge planning and pt aware therapy will do evals today. Pt states if SNF is recommended, she would be willing to go to a SNF. If she is safe/able to return home, then she would like HHC. CM?to follow for any increase in home oxygen needs and any further discharge planning/needs.? Pt voices no further concerns/needs at this time.? Advised pt to ask for?CM?if any further questions/concerns/needs arise.? Voices understanding. PLAN:??TBD by therapy evals. SNF vs Home w/HHC. If able to discharge home, follow for increase in home O2, HHC, and pt would like shower chair w/back rest. Marlena BSN?RN?CM
[2023-06-25] MEDS: 0.9% Saline Lock 10 ML Syringe IV ×2 (13:37→17:15)
[2023-06-25] MEDS: Divalproex Sodium 250 MG Tablet 500 MG PO (20:30)
[2023-06-26] VITALS (17 sets, daily range): BP systolic 115–157; BP diastolic 51–101; PULSE 55–88; RESP 13–20; TEMP 36.3–36.8; O2SAT 94–99; BMI 39.8
[2023-06-26] MEDS: Levothyroxine 100 MCG Tablet PO (05:14)
[2023-06-26 06:24] LABS: Absolute Lymphocyte Count 0.58 X10^3/uL (0.83-4.51); Absolute Neutrophil Count 11.4 X10^3/uL (2.0-7.7); Basophil# 0.02 X10^3/uL; Basophil% 0.2 % (0-1); Hematocrit 35.3 % (37-47); Hemoglobin 11.2 g/dL (12.0-15.0); Lymphocyte # 0.58 X10^3/ul (0.83-4.51); Lymphocyte % 4.7 % (19-41); Mean Corp Hgb Conc 31.7 g/dL (32-36); Mean Corpuscular Hgb 28.1 pg (27.0-32.0); Mean Corpuscular Volume 88.7 fL (81-99); Mean Platelet Vol. 10.1 fl (6.2-12.0); Monocyte# 0.25 X10^3/uL; NRBC Flagged by Analyzer 0 % (0-5); Neutrophil # 11.36 X10^3/uL (2.7-7.7); Neutrophil % 92.4 % (47-70); POSITIVE DIFFERENTIAL YES; Platelet Count 119 K/mm3 (150-450); RBC Distribution Width CV 14.6 % (11.6-14.6); RBC Distribution Width SD 47.5 fl (35.1-43.9); Red Blood Count 3.98 M/mm3 (4.2-5.4); White Blood Count 12.3 K/mm3 (4.4-11.0)
[2023-06-26 06:49] LABS: Anion Gap 10 (5-15); BUN 47 mg/dL (7-18); Calcium,Total 9.5 mg/dL (8.5-10.1); Chloride 101 mmol/L (98-107); Creatinine, Serum 1.81 mg/dL (0.55-1.02); EST Glomerular Filtration Rate 30 mL/min (>60); Est Glom Filt Rate - Afr Amer 36 mL/min (>60); Estimated Creatinine Clearance 36.28 ml/min; Glucose 306 mg/dL (74-106); Phosphorus 3.6 mg/dL (2.5-4.9); Potassium 4.9 mmol/L (3.5-5.1); Sodium Level 135 mmol/L (136-145)
[2023-06-26] MEDS: Budesonide Respules 0.5 MG/2 ML AMPUL.NEB. INHALATION ×2 (07:00→20:27)
[2023-06-26] MEDS: Albuterol 2.5 MG/3 ML VIAL.NEB. INHALATION ×3 (07:00→20:27)
--- NOTE | 2023-06-26 07:06 | PN.HOSP_ITS ---
Reason for Visit Reason for Visit: Diagnoses Hypotension, unspecified (06/24/23) Chest pain, unspecified (06/24/23) Subjective Subjective Patient seen hypotension resolved. Ordered D-dimer which came back within normal limits. Plan is for patient to be transferred from the intensive care unit to the progressive care unit Objective Data Objective Data Vital Signs: Vital Signs Temp Pulse Resp BP Pulse Ox O2 Del Method O2 Flow Rate 97.8 F 60 16 157/64 H 94 Nasal Cannula 2 06/26/23 00:00 06/26/23 07:01 06/26/23 07:01 06/26/23 07:00 06/26/23 07:01 06/26/23 07:01 06/26/23 07:01 FiO2 28 06/25/23 08:00 Oxygen Flow Rate (L/min) 2 Oxygen Delivery Method Nasal Cannula Weight: 102 kg Body Mass Index (BMI) 39.8 Intake & Output: Intake and Output for Last 24 Hours 06/24/23 06/25/23 06/26/23 23:59 23:59 23:59 Intake Total 1500 / 1500 1768.03 / 1768.03 Output Total 5300 / 5300 900 / 900 Balance 1500 / 1500 -3531.97 / -3531.97 -900 / -900 Lab / Micro Data 06/26/23 06:15 06/26/23 06:15 Labs: Laboratory Results - last 24 hr 06/25/23 04:55: B-Natriuretic Peptide 74.2 06/25/23 08:10: D-Dimer Quant (PE/DVT) 0.55 H* 06/26/23 06:15: WBC 12.3 H, RBC 3.98 L, Hgb 11.2 L, Hct 35.3 L, MCV 88.7, MCH 28.1, MCHC 31.7 L, RDW Std Deviation 47.5 H, RDW Coeff of Penny 14.6, Plt Count 119 L, MPV 10.1, Immature Gran % (Auto) 0.700, Neut % (Auto) 92.4 H, Lymph % (A uto) 4.7 L, [place] % (Auto) 2.0, Eos % (Auto) 0.0, Baso % (Auto) 0.2, Absolute Neuts (auto) 11.4 H, Absolute Lymphs (auto) 0.58 L, Nucleated RBC % 0, Sodium 135 L, Potassium 4.9, Chloride 101, Carbon Dioxide 24.0, Anion Gap 10, BUN 47 H, Creatinine 1.81 H, Estim Creat Clear Calc 36.28, Est GFR (MDRD) Af Amer 36 L, Est GFR (MDRD) Non-Af 30 L, BUN/Creatinine Ratio 26.0 H, Glucose 306 H, Calcium 9.5, Phosphorus 3.6, Magnesium 2.0 Micro: Microbiology 06/25/23 08:45 Mucosa - Nasopharyngeal Respiratory Panel (PCR) - Final 06/25/23 10:00 Mucosa - Nasopharyngeal Coronavirus COVID-19 PCR - Final 06/25/23 08:45 Mucosa - Throat Streptococcus pyogenes (PCR) - Final Radiography Diagnostic Testing: Radiology Impression Echocardiogram 06/25/23 08:02 Interpretation Summary The estimated ejection fraction is 65 %. Mild (1+) mitral valve insufficiency. Mild to moderate (1-2+) tricuspid valve insufficiency. Pulmonary artery systolic pressure is 46 mmHg. Contrast injection was performed. Ordering Physician: Elliot Abraham Referring Physician: Eric Marion Performed By: Enriqueta Lopez, MODE, RVT Physical Exam Narrative GENERAL: Patient on BiPAP HEENT: Atraumatic; normocephalic EYES; Anicteric, Normal Conjunctiva NECK; supple, normal thyroid, RESPIRATORY: Diminished to auscultation, bilateral wheezes CARDIOVASCULAR: Regular S1 S2, GI: soft, normoactive bowel sounds, : No Renal angle tenderness; EXTREMITIES: No edema, no clubbing, MUSCULOSKELETAL: no muscle wasting NEURO: Awake no lateralizing signs SKIN: No Rash PSYCH; flat affect Assessment & Plan Assessment/Plan (1) Chest pain of uncertain etiology: (2) Acute hypotension: PLAN: Plan ' Patient is a 62-year-old lady with multiple comorbidities admitted with chest pain. Patient was apparently found to be hypotensive with acute kidney injury in the ED. Patient was also found to be lethargic. Was found to be acidotic with slight CO2 retention, did receive IV fluid resuscitation, placed on BiPAP and subsequently admitted to the intensive care unit 1. Chest pain ? Patient serial cardiac enzymes so far negative to date EKG obtained on admission did not show any evidence of ischemia. Admitted to monitored bed for continuous telemetry monitoring. Ordered D-dimer if positive will proceed to obtain lower extremity ultrasound as well as VQ scan ? 06/26/2023 patient D-dimer was within normal limit corrected for age 2. Hypotension ? Secondary to dehydration patient was found to have acute kidney injury being resuscitated with IV fluid ? 06/26/2023; hypotension resolved 3. Acute encephalopathy (toxic and metabolic) Patient UDS was positive for opioid as well as MDMA. Also presented with acute kidney injury as well as CO2 retention 4. Acute hypercapnic and hypoxic respiratory failure ? With lethargy patient was placed on BiPAP admitted to the intensive care unit. Patient level of sensorium improving. Chest x-ray obtained on admission demonstrated vascular congestion 5. Acute kidney injury Superimposed on chronic kidney disease stage IIIa baseline creatinine 1.8 creatinine on admission was 2.39 6. Acute on chronic chronic congestive heart failure with preserved ejection fraction ? Echo from 02/10/2023 demonstrated EF of 65% with diastolic dysfunction. Chest x-ray did show vascular congestion. Patient started on diuretic therapy in addition to fluid restriction 7. Hypothyroidism - Patient is on levothyroxine home dose continued 8. History of pericardial effusion with pericardial tamponade 9. Dyslipidemia -Patient is on statin therapy, continued at home dose 10. Previous history of cardiac arrest ? Successfully resuscitated using ACLS 11. Paroxysmal A-fib ? Rate controlled on systemic anticoagulation with apixaban 12. Schizoaffective disorder ? Complicating care. Did continue patient home medications 13. GERD ? On PPI 14.COPD with acute exacerbation ? Started patient on bronchodilator treatment in addition to systemic steroids 15. Anemia - Secondary to chronic disorder monitoring H&H and transfuse if patient becomes symptomatic or hemoglobin falls below 7 16. Seizure disorder ? Patient is on valproic acid did continue 17. DVT prophylaxis ? On apixaban Time spent in the patient's overall evaluation,decision-making process, review of diagnostic data, adjustment of management, discussion with other providers, nursing nursing and ancillary staff involved in patient's care documentation, 35 Minutes Charges/Coding Visit Charges Inpatient E&M: 33345 Subs Hosp L2
[2023-06-26] MEDS: Sucralfate 1 GM Tablet PO ×2 (08:22→21:12)
[2023-06-26] MEDS: Furosemide 40 MG/4 ML Vial IV ×2 (08:22→17:18)
[2023-06-26] MEDS: 0.9% Saline Lock 10 ML Syringe IV (08:22)
[2023-06-26] MEDS: Gabapentin 300 MG Capsule PO ×4 (08:22→21:11)
[2023-06-26] MEDS: Pantoprazole Sodium 40 MG Tablet PO (08:22)
[2023-06-26] MEDS: guaiFENesin 1,200 MG Tablet 1200 MG PO ×2 (08:22→21:14)
--- NOTE | 2023-06-26 08:28 | PN.CC_ITS ---
Objective Data Objective Data Vital Signs: Vital Signs Last response Temperature 36.3 C L 06/26/23 08:16 Temperature Source Temporal 06/26/23 08:16 Pulse Rate 74 06/26/23 08:16 Respiratory Rate 20 H 06/26/23 08:16 Respiratory Effort Normal, Non-Labored 06/26/23 04:00 Respiratory Depth Normal 06/26/23 04:00 Respiratory Pattern Normal 06/26/23 07:01 Blood Pressure 133/101 H 06/26/23 08:16 Blood Pressure Mean 111 06/26/23 08:16 Blood Pressure Source Monitor 06/26/23 08:16 Blood Pressure Position Semi-Fowlers 06/26/23 08:16 Blood Pressure Location Left Arm 06/26/23 08:16 Pulse Ox 94 06/26/23 08:16 Oxygen Delivery Method Nasal Cannula 06/26/23 08:16 Oxygen Flow Rate (L/min) 2 06/26/23 08:16 Fraction of Inspired Oxygen (FIO2) 28 06/25/23 08:00 I&O: I&O Last 24 Hours 06/25/23 06/25/23 06/26/23 11:59 23:59 11:59 Intake Total 1581.36 / 1768.03 186.67 / 1768.03 Output Total 1450 / 5300 3850 / 5300 900 / 900 Balance 131.36 / -3531.97 -3663.33 / -3531.97 -900 / -900 I&O: Total Stay 06/24/23 19:58 thru 06/26/23 05:22 Intake Total 3268.03 Output Total 6200 Balance -2931.97 Current Meds Ordered / Administered: Current meds ordered / Administered Generic Name Dose Route Start Last Admin Trade Name Freq PRN Reason Stop Dose Admin Albuterol Sulfate 2.5 mg 06/25/23 01:30 06/26/23 07:00 Albuterol 2.5 Mg/3 Ml Vial.Neb. INHALATION 2.5 mg Q6HWA.RT PAIGE Administration Albuterol/Ipratropium 3 ml 06/25/23 08:15 Ipratropium/Albuterol Sulfate 3 Ml Ampul.Neb INHALATION Q4H.RT PAIGE Apixaban 5 mg 06/26/23 10:00 Apixaban 5 Mg Tablet PO BID PAIGE Atorvastatin Calcium 20 mg 06/26/23 17:00 Atorvastatin Calcium 20 Mg Tablet PO DINNER PAIGE Baclofen 10 mg 06/26/23 08:00 Baclofen 10 Mg Tablet PO TID PRN PRN MUSCLE SPASM Budesonide 0.5 mg 06/25/23 01:30 06/26/23 07:00 Budesonide Respules 0.5 Mg/2 Ml Ampul.Neb. INHALATION 0.5 mg Q12H.RT PAIGE Administration Divalproex Sodium 500 mg 06/25/23 22:00 06/25/23 20:30 Divalproex Sodium 250 Mg Tablet PO 500 mg QHS PAIGE Administration Empagliflozin 10 mg 06/26/23 10:00 Empagliflozin 10 Mg Tablet PO DAILY PAIGE Fluoxetine HCl 40 mg 06/26/23 10:00 Fluoxetine Hcl 40 Mg Capsule PO DAILY [facility] Fluticasone Propionate 1 spray 06/26/23 07:43 Fluticasone 0.05% 1 [place] Nasal.Sry NASAL DAILY PRN allergy symptoms Furosemide 40 mg 06/25/23 10:00 06/26/23 08:22 Furosemide 40 Mg/4 Ml Vial IV 40 mg BID@1000,1800 PAIGE Administration Gabapentin 300 mg 06/26/23 10:00 06/26/23 08:22 Gabapentin 300 Mg Capsule PO 300 mg 4X/DAY PAIGE Administration Guaifenesin 1,200 mg 06/25/23 10:00 06/26/23 08:22 Guaifenesin 1,200 Mg Tablet PO 1,200 mg BID PAIGE Administration Norepinephrine Bitartrate 8 mg 250 mls @ 9.375 mls/hr 06/24/23 22:05 06/26/23 02:05 / Sodium Chloride CONT INF Not Given .[id number] PAIGE Protocol 5 MCG/MIN Sodium Chloride 250 mls @ 15 mls/hr 06/25/23 01:09 IV .[id number] PRN Additional IVPB Infusion Sodium Chloride 250 mls @ 15 mls/hr 06/25/23 01:09 IV .[id number] PRN Saline Flush Levofloxacin 750 mg 06/27/23 10:00 Levofloxacin 750 Mg Tablet PO 06/29/23 10:01 Q48 PAIGE Levothyroxine Sodium 100 mcg 06/25/23 06:00 06/26/23 05:14 Levothyroxine 100 Mcg Tablet PO 100 mcg DAILY@0600 PAIGE Administration Non-Formulary Medication 20 mg 06/26/23 22:00 Aripiprazole PO QHS [facility] Ondansetron HCl 4 mg 06/26/23 07:43 Ondansetron Odt 4 Mg Tablet PO Q8H PRN PRN Nausea Pantoprazole Sodium 40 mg 06/25/23 10:00 06/26/23 08:22 Pantoprazole Sodium 40 Mg Tablet PO 40 mg DAILY PAIGE Administration Prednisone 40 mg 06/27/23 08:00 Prednisone 20 Mg Tablet PO DAILY@0800 [facility] Sodium Chloride 10 - 40 ml 06/25/23 01:09 06/26/23 08:22 0.9% Saline Lock 10 Ml Syringe IV 10 ml UD PRN Administration SALINE FLUSH Sucralfate 1 gm 06/25/23 10:00 06/26/23 08:22 Sucralfate 1 Gm Tablet PO 1 gm BID PAIGE Administration Trazodone HCl 100 mg 06/26/23 22:00 Trazodone 100 Mg Tablet PO QHS [facility] Lab / Micro Data 06/26/23 06:15 06/26/23 06:15 Labs: Laboratory Results - last 24 hr 06/25/23 04:55: B-Natriuretic Peptide 74.2 06/25/23 08:10: D-Dimer Quant (PE/DVT) 0.55 H* 06/26/23 06:15: WBC 12.3 H, RBC 3.98 L, Hgb 11.2 L, Hct 35.3 L, MCV 88.7, MCH 28.1, MCHC 31.7 L, RDW Std Deviation 47.5 H, RDW Coeff of Penny 14.6, Plt Count 119 L, MPV 10.1, Immature Gran % (Auto) 0.700, Neut % (Auto) 92.4 H, Lymph % (Auto) 4.7 L, [place] % (Auto) 2.0, Eos % (Auto) 0.0, Baso % (Auto) 0.2, Absolute Neuts (auto) 11.4 H, Absolute Lymphs (auto) 0.58 L, Nucleated RBC % 0, Sodium 135 L, Potassium 4.9, Chloride 101, Carbon Dioxide 24.0, Anion Gap 10, BUN 47 H, Creatinine 1.81 H, Estim Creat Clear Calc 36.28, Est GFR (MDRD) Af Amer 36 L, Est GFR (MDRD) Non-Af 30 L, BUN/Creatinine Ratio 26.0 H, Glucose 306 H, Calcium 9.5, Phosphorus 3.6, Magnesium 2.0 Micro: Microbiology 06/25/23 08:45 Mucosa - Nasopharyngeal Respiratory Panel (PCR) - Final 06/25/23 10:00 Mucosa - Nasopharyngeal Coronavirus COVID-19 PCR - Final 06/25/23 08:45 Mucosa - Throat Streptococcus pyogenes (PCR) - Final Imaging Radiology Impression Echocardiogram 06/25/23 08:02 Interpretation Summary The estimated ejection fraction is 65 %. Mild (1+) mitral valve insufficiency. Mild to moderate (1-2+) tricuspid valve insufficiency. Pulmonary artery systolic pressure is 46 mmHg. Contrast injection was performed. Ordering Physician: Elliot Abraham Referring Physician: Eric Marion Performed By: Enriqueta Lopez, KATIECS, RVT Assessment and Plan . Assessment and plan: Subjective: No acute events o/n. Off pressors now. Breathing much improved Physical Exam: Gen - NAD, obese HEENT - MMM. Sclera anicteric Resp - +wheezing improved, diminished BS. Breathing nonlabored CV - RRR. No m/g/r Abd - Soft, NT, ND Ext - No c/c. +edema Skin - No rashes? Neuro - Grossly nonfocal. Drowsy but arousable, answers questions appropriately I have reviewed the pertinent vital sign, laboratory, and imaging data. ASSESSMENT: # Acute on chronic hypoxic and hypercapneic respiratory failure - on home 2L NC # COPD exacerbation # Chest pain # Acute encephalopathy # Hypotension # CHELSEY on CKD # Afib # CHF/pulm HTN # h/o cardiac arrest # Seizure d/o # Chronic pain # h/o pericardial effusion # Anemia # Schizoaffective disorder # UDS positive for opiates/MDMA # Thrombocytopenia # Obesity # Tobacco abuse PLAN: -On 2L NC (at home baseline), wean to keep sats > 90%. Cont BiPAP with naps/sleep for now as tolerated -Off pressors now. Monitor BP -Started on gentle diuresis, monitor UOP -Cont steroids, nebs -Empiric levaquin, f/u Cx. COVID/viral panel neg -D-dimer corrected for age wnl -Lactate, trop wnl -Cont depakote -Follow CBC FEN/GI: PO diet Proph DVT/GI: Can restart home eliquis when stable Downgrading from ICU now. We will sign off, please call with any questions or if clinical worsening The entirety of this encounter was done via Telemedicine
[2023-06-26] MEDS: Fluoxetine HCl 40 MG CAPSULE PO (09:51)
[2023-06-26] MEDS: APIXABAN 5 MG TABLET PO ×2 (09:52→21:13)
[2023-06-26] MEDS: Empagliflozin 10 MG Tablet PO (09:52)
[2023-06-26] MEDS: Baclofen 10 MG Tablet PO (13:26)
[2023-06-26] MEDS: Atorvastatin Calcium 20 MG Tablet PO (17:18)
[2023-06-26] MEDS: Divalproex Sodium 250 MG Tablet 500 MG PO (21:13)
[2023-06-26] MEDS: traZODone 100 MG Tablet PO (21:19)
[2023-06-27] MEDS: Magnesium Hydroxide 30 ML UDC 15 ML PO ×2 (02:12→09:51)
[2023-06-27 02:36] VITALS: O2SAT 97
[2023-06-27 02:51] VITALS: BP 131/64; PULSE 64; RESP 16; TEMP 36; O2SAT 97
[2023-06-27] MEDS: Levothyroxine 100 MCG Tablet PO (05:20)
[2023-06-27 06:00] VITALS: BMI 38.9
[2023-06-27 06:24] LABS: Absolute Lymphocyte Count 1.36 X10^3/uL (0.83-4.51); Absolute Neutrophil Count 9.5 X10^3/uL (2.0-7.7); Basophil# 0.02 X10^3/uL; Basophil% 0.2 % (0-1); Eosinophil# 0.02 X10^3/uL; Eosinophils% 0.2 % (0-5); Hematocrit 34.2 % (37-47); Hemoglobin 10.8 g/dL (12.0-15.0); Lymphocyte # 1.36 X10^3/ul (0.83-4.51); Lymphocyte % 11.5 % (19-41); Mean Corp Hgb Conc 31.6 g/dL (32-36); Mean Corpuscular Volume 88.6 fL (81-99); Mean Platelet Vol. 10.4 fl (6.2-12.0); Monocyte# 0.83 X10^3/uL; NRBC Flagged by Analyzer 0 % (0-5); Neutrophil # 9.51 X10^3/uL (2.7-7.7); Neutrophil % 80.5 % (47-70); Platelet Count 124 K/mm3 (150-450); RBC Distribution Width CV 14.6 % (11.6-14.6); Red Blood Count 3.86 M/mm3 (4.2-5.4); White Blood Count 11.8 K/mm3 (4.4-11.0)
[2023-06-27 06:54] LABS: Anion Gap 6 (5-15); BUN 55 mg/dL (7-18); BUN/Creat Ratio 34.2 RATIO (10-20); Calcium,Total 9.3 mg/dL (8.5-10.1); Chloride 97 mmol/L (98-107); Creatinine, Serum 1.61 mg/dL (0.55-1.02); EST Glomerular Filtration Rate 34 mL/min (>60); Est Glom Filt Rate - Afr Amer 42 mL/min (>60); Estimated Creatinine Clearance 40.79 ml/min; Glucose 258 mg/dL (74-106); Potassium 3.8 mmol/L (3.5-5.1); Sodium Level 134 mmol/L (136-145)
[2023-06-27 07:29] VITALS: PULSE 68; RESP 16; O2SAT 97
[2023-06-27] MEDS: Albuterol 2.5 MG/3 ML VIAL.NEB. INHALATION (07:29)
[2023-06-27] MEDS: Budesonide Respules 0.5 MG/2 ML AMPUL.NEB. INHALATION (07:29)
--- NOTE | 2023-06-27 08:36 | PN.HOSP_ITS ---
Reason for Visit Reason for Visit: Diagnoses Hypotension, unspecified (06/24/23) Chest pain, unspecified (06/24/23) Subjective Subjective Patient seen breathing improved back to baseline .Patient to be assessed for possible discharge Objective Data Objective Data Vital Signs: Vital Signs Temp Pulse Resp BP Pulse Ox O2 Del Method O2 Flow Rate 96.8 F L 64 16 131/64 H 97 Nasal Cannula 2 06/27/23 02:51 06/27/23 02:51 06/27/23 02:51 06/27/23 02:51 06/27/23 02:51 06/27/23 03:31 06/27/23 03:31 FiO2 28 06/26/23 23:15 Oxygen Flow Rate (L/min) 2 Oxygen Delivery Method Nasal Cannula Weight: 99.6 kg Body Mass Index (BMI) 38.9 Intake & Output: Intake and Output for Last 24 Hours 06/25/23 06/26/23 06/27/23 23:59 23:59 23:59 Intake Total 1768.03 / 1768.03 1340 / 1340 220 / 220 Output Total 5300 / 5300 4600 / 4600 650 / 650 Balance -3531.97 / -3531.97 -3260 / -3260 -430 / -430 Lab / Micro Data 06/27/23 06:12 06/27/23 06:12 Labs: Laboratory Results - last 24 hr 06/27/23 06:12: WBC 11.8 H, RBC 3.86 L, Hgb 10.8 L, Hct 34.2 L, MCV 88.6, MCH 28.0, MCHC 31.6 L, RDW Std Deviation 47.0 H, RDW Coeff of Penny 14.6, Plt Count 124 L, MPV 10.4, Immature Gran % (Auto) 0.600, Neut % (Auto) 80.5 H, Lymph % (Auto) 11.5 L, [place] % (Auto) 7.0, Eos % (Auto) 0.2, Baso % (Auto) 0.2, Absolute Neuts (auto) 9.5 H, Absolute Lymphs (auto) 1.36, Nucleated RBC % 0, Sodium 134 L , Potassium 3.8, Chloride 97 L, Carbon Dioxide 31.0, Anion Gap 6, BUN 55 H, Creatinine 1.61 H, Estim Creat Clear Calc 40.79, Est GFR (MDRD) Af Amer 42 L, Est GFR (MDRD) Non-Af 34 L, BUN/Creatinine Ratio 34.2 H, Glucose 258 H, Calcium 9.3 Micro: Microbiology 06/25/23 08:45 Mucosa - Nasopharyngeal Respiratory Panel (PCR) - Final 06/25/23 10:00 Mucosa - Nasopharyngeal Coronavirus COVID-19 PCR - Final 06/25/23 08:45 Mucosa - Throat Streptococcus pyogenes (PCR) - Final Physical Exam Narrative GENERAL: Patient on BiPAP HEENT: Atraumatic; normocephalic EYES; Anicteric, Normal Conjunctiva NECK; supple, normal thyroid, RESPIRATORY: Diminished to auscultation, bilateral wheezes CARDIOVASCULAR: Regular S1 S2, GI: soft, normoactive bowel sounds, : No Renal angle tenderness; EXTREMITIES: No edema, no clubbing, MUSCULOSKELETAL: no muscle wasting NEURO: Awake no lateralizing signs SKIN: No Rash PSYCH; flat affect Assessment & Plan Assessment/Plan (1) Chest pain of uncertain etiology: (2) Acute hypotension: PLAN: Plan ' Patient is a 62-year-old lady with multiple comorbidities admitted with chest pain. Patient was apparently found to be hypotensive with acute kidney injury in the ED. Patient was also found to be lethargic. Was found to be acidotic with slight CO2 retention, did receive IV fluid resuscitation, placed on BiPAP and subsequently admitted to the intensive care unit 1. Chest pain ? Patient serial cardiac enzymes so far negative to date EKG obtained on admissi on did not show any evidence of ischemia. Admitted to monitored bed for continuous telemetry monitoring. Ordered D-dimer if positive will proceed to obtain lower extremity ultrasound as well as VQ scan ? 06/26/2023 patient D-dimer was within normal limit corrected for age 2. Hypotension ? Secondary to dehydration patient was found to have acute kidney injury being resuscitated with IV fluid ? 06/26/2023; hypotension resolved 3. Acute encephalopathy (toxic and metabolic) Patient UDS was positive for opioid as well as MDMA. Also presented with acute kidney injury as well as CO2 retention 4. Acute hypercapnic and hypoxic respiratory failure ? With lethargy patient was placed on BiPAP admitted to the intensive care unit. Patient level of sensorium improving. Chest x-ray obtained on admission demonstrated vascular congestion 5. Acute kidney injury Superimposed on chronic kidney disease stage IIIa baseline creatinine 1.8 creatinine on admission was 2.39 6. Acute on chronic chronic congestive heart failure with preserved ejection fraction ? Echo from 02/10/2023 demonstrated EF of 65% with diastolic dysfunction. Chest x-ray did show vascular congestion. Patient started on diuretic therapy in addition to fluid restriction 7. Hypothyroidism - Patient is on levothyroxine home dose continued 8. History of pericardial effusion with pericardial tamponade 9. Dyslipidemia -Patient is on statin therapy, continued at home dose 10. Previous history of cardiac arrest ? Successfully resuscitated using ACLS 11. Paroxysmal A-fib ? Rate controlled on systemic anticoagulation with apixaban 12. Schizoaffective disorder ? Complicating care. Did continue patient home medications 13. GERD ? On PPI 14.COPD with acute exacerbation ? Started patient on bronchodilator treatment in addition to systemic steroids 15. Anemia - Secondary to chronic disorder monitoring H&H and transfuse if patient becomes symptomatic or hemoglobin falls below 7 16. Seizure disorder ? Patient is on valproic acid did continue 17. DVT prophylaxis ? On apixaban Time spent in the patient's overall evaluation,decision-making process, review of diagnostic data, adjustment of management, discussion with other providers, nursing nursing and ancillary staff involved in patient's care documentation, 35 Minutes
[2023-06-27 09:48] VITALS: BP 120/88; PULSE 68; RESP 18; TEMP 36; O2SAT 98
[2023-06-27] MEDS: Fluoxetine HCl 40 MG CAPSULE PO (09:52)
[2023-06-27] MEDS: predniSONE 20 MG Tablet 40 MG PO (09:52)
[2023-06-27] MEDS: Pantoprazole Sodium 40 MG Tablet PO (09:52)
[2023-06-27] MEDS: APIXABAN 5 MG TABLET PO (09:52)
[2023-06-27] MEDS: Furosemide 40 MG/4 ML Vial IV (09:52)
[2023-06-27] MEDS: Sucralfate 1 GM Tablet PO (09:52)
[2023-06-27] MEDS: guaiFENesin 1,200 MG Tablet 1200 MG PO (09:53)
[2023-06-27] MEDS: levoFLOXacin 750 MG Tablet PO (09:53)
[2023-06-27] MEDS: Gabapentin 300 MG Capsule PO (09:55)
[2023-06-27] MEDS: Empagliflozin 10 MG Tablet PO (10:18)
[2023-06-27 10:19] VITALS: O2SAT 93; O2SAT 95
--- NOTE | 2023-06-27 11:25 | PCM.DC.SUM ---
Providers Date of Admission: 06/24/23 Date of Discharge: 06/27/23 Primary Care Physician: FATMATA Dalal Consultations 06/25/23 05:45 Consult: Automobile Inspector / Pulmonary Medicine Routine Consulting Provider: Intensivists/Pulmonary Med Reason for Consult: hypotension EMERGENT Consult: No MD Notified: Yes Date Notified: 06/25/23 Time Notified: 05:45 Method of Notification: Text Reason For Visit: UNRESPONSIVE AND HYPOTENSION Diagnosis Discharge Diagnosis (1) Chest pain of uncertain etiology: Status: Acute Code(s): R07.9 - Chest pain, unspecified (2) Acute hypotension: Status: Acute Code(s): I95.9 - Hypotension, unspecified Plan ' Patient is a 62-year-old lady with multiple comorbidities admitted with chest pain. Patient was apparently found to be hypotensive with acute kidney injury in the ED. Patient was also found to be lethargic. Was found to be acidotic with slight CO2 retention, did receive IV fluid resuscitation, placed on BiPAP and subsequently admitted to the intensive care unit 1. Chest pain ? Patient serial cardiac enzymes so far negative to date EKG obtained on admission did not show any evidence of ischemia. Admitted to monitored bed for continuous telemetry monitoring. Ordered D-dimer if positive will proceed to obtain lower extremity ultrasound as well as VQ scan ? 06/26/2023 patient D-dimer was within normal limit corrected for age 2. Hypotension ? Secondary to dehydration patient was found to have acute kidney injury being resuscitated with IV fluid ? 06/26/2023; hypotension resolved 3. Acute encephalopathy (toxic and metabolic) Patient UDS was positive for opioid as well as MDMA. Also presented with acute kidney injury as well as CO2 retention 4. Acute hypercapnic and hypoxic respiratory failure ? With lethargy patient was placed on BiPAP admitted to the intensive care unit. Patient level of sensorium improving. Chest x-ray obtained on admission demonstrated vascular congestion 5. Acute kidney injury Superimposed on chronic kidney disease stage IIIa baseline creatinine 1.8 creatinine on admission was 2.39 6. Acute on chronic chronic congestive heart failure with preserved ejection fraction ? Echo from 02/10/2023 demonstrated EF of 65% with diastolic dysfunction. Chest x-ray did show vascular congestion. Patient started on diuretic therapy in addition to fluid restriction 7. Hypothyroidism - Patient is on levothyroxine home dose continued 8. History of pericardial effusion with pericardial tamponade 9. Dyslipidemia -Patient is on statin therapy, continued at home dose 10. Previous history of cardiac arrest ? Successfully resuscitated using ACLS 11. Paroxysmal A-fib ? Rate controlled on systemic anticoagulation with apixaban 12. Schizoaffective disorder ? Complicating care. Did continue patient home medications 13. GERD ? On PPI 14.COPD with acute exacerbation ? Started patient on bronchodilator treatment in addition to systemic steroids 15. Anemia - Secondary to chronic disorder monitoring H&H and transfuse if patient becomes symptomatic or hemoglobin falls below 7 16. Seizure disorder ? Patient is on valproic acid did continue 17. DVT prophylaxis ? On apixaban Time spent in the patient's overall evaluation,decision-making process, review of diagnostic data, adjustment of management, discussion with other providers, nursing nursing and ancillary staff involved in patient's care documentation, 35 Minutes Medications at Discharge Home Medications apixaban 5 mg tablet (Eliquis) 5 mg PO BID a. fib. 12/24/22 atorvastatin 20 mg tablet 20 mg PO DAILY 12/24/22 empagliflozin 10 mg tablet (Jardiance) 10 mg PO DAILY 12/24/22 famotidine 10 mg tablet 20 mg PO DAILY 12/24/22 fluoxetine 20 mg capsule 20 mg PO DAILY 12/24/22 levothyroxine 100 mcg capsule 100 mcg PO DAILY 12/24/22 sucralfate 100 mg/mL oral suspension (Carafate) 10 ml PO BID 12/24/22 baclofen 10 mg tablet 10 mg PO TID muscle spasm 12/25/22 divalproex 500 mg tablet,delayed release (Depakote) 500 mg PO QHS 12/25/22 gabapentin 300 mg capsule 300 mg PO 4X/DAY 12/25/22 albuterol sulfate 90 mcg/actuation aerosol inhaler 1 inh inhalation PRN PRN shortness of breath or wheezing 12/31/22 meloxicam 7.5 mg tablet 7.5 mg PO DAILY 01/01/23 trazodone 100 mg tablet 100 mg PO QHS 01/01/23 ondansetron 4 mg disintegrating tablet 4 mg PO Q8H PRN PRN Nausea #10 tabs 02/27/23 aripiprazole 20 mg tablet 20 mg PO QHS 03/09/23 pantoprazole 40 mg tablet,delayed release 40 mg PO DAILY #30 tabs 03/09/23 budesonide-formoterol HFA 80 mcg-4.5 mcg/actuation aerosol inhaler (Symbicort) 2 inh inhalation BID 04/27/23 fluoxetine 40 mg capsule 40 mg PO DAILY 04/27/23 fluticasone propionate 50 mcg/actuation nasal spray,suspension 1 spray intranasal DAILY PRN allergy symptoms 04/27/23 valbenazine 40 mg capsule (Ingrezza) 40 mg PO DAILY 04/27/23 furosemide 20 mg tablet 40 mg (2 x 20 mg) PO DAILY #60 tabs 06/27/23 guaifenesin 1,200 mg tablet, extended release 12 hr (Mucus Relief ER) 1,200 mg PO BID #14 tabs 06/27/23 levofloxacin 750 mg tablet 750 mg PO Q48 #3 tabs 06/27/23 prednisone 20 mg tablet 40 mg (2 x 20 mg) PO DAILY@0800 #10 tabs 06/27/23 Physical Exam Narrative GENERAL: Cooperative HEENT: Atraumatic; normocephalic EYES; Anicteric, Normal Conjunctiva NECK; supple, normal thyroid, RESPIRATORY: Diminished to auscultation, bilateral wheezes CARDIOVASCULAR: Regular S1 S2, GI: soft, normoactive bowel sounds, : No Renal angle tenderness; EXTREMITIES: No edema, no clubbing, MUSCULOSKELETAL: no muscle wasting NEURO: Awake no lateralizing signs SKIN: No Rash PSYCH; flat affect Weight / BMI Weight Weight: 99.6 kg Body Mass Index (BMI) 38.9 ABG / Lab / Microbiology Data 06/27/23 06:12 06/27/23 06:12 Laboratory: Laboratory Results - last 24 hr 06/27/23 06:12: WBC 11.8 H, RBC 3.86 L, Hgb 10.8 L, Hct 34.2 L, MCV 88.6, MCH 28.0, MCHC 31.6 L, RDW Std Deviation 47.0 H, RDW Coeff of Penny 14.6, Plt Count 124 L, MPV 10.4, Immature Gran % (Auto) 0.600, Neut % (Auto) 80.5 H, Lymph % (Auto) 11.5 L, [place] % (Auto) 7.0, Eos % (Auto) 0.2, Baso % (Auto) 0.2, Absolute Neuts (auto) 9.5 H, Absolute Lymphs (auto) 1.36, Nucleated RBC % 0, Sodium 134 L, Potassium 3.8, Chloride 97 L, Carbon Dioxide 31.0, Anion Gap 6, BUN 55 H, Creatinine 1.61 H, Estim Creat Clear Calc 40.79, Est GFR (MDRD) Af Amer 42 L, Est GFR (MDRD) Non-Af 34 L, BUN/Creatinine Ratio 34.2 H, Glucose 258 H, Calcium 9.3 Microbiology: Microbiology 06/25/23 08:45 Mucosa - Nasopharyngeal Respiratory Panel (PCR) - Final 06/25/23 10:00 Mucosa - Nasopharyngeal Coronavirus COVID-19 PCR - Final 06/25/23 08:45 Mucosa - Throat Streptococcus pyogenes (PCR) - Final D/C Instructions Discharge Diet: 8 Cup Fluid Restriction and 2000 mg Sodium Diet Discharge Activity: Return to Normal Activity Call your doctor if you observe: Fever of 101 or Higher, Shortness of breath, Fainting spells and Chest pain Meaningful Use Info Meaningful Use Meaningful Use Diagnoses (Choose all that apply): CHF CHF [facility] ordered at discharge?: No Reason [facility] not ordered?: Hypotension and Worsening renal function Documented LVEF (%): 65 Ischemic Stroke Statin Dosing Therapy Reference: STATIN DOSE THERAPY REFERENCE: * Patients > 75 years receive moderate or high dose statin therapy. * Patients 75 years or YOUNGER should receive HIGH intensity statin dose unless contraindicated. You will be required to document reason for non-treatment if statin daily dose does not meet guidelines. HIGH DOSE STATIN THERAPY DAILY Atorvastatin > than or = to 40 mg Rosuvastatin > than or = to 20 mg Amlodipine + Atorvastatin > than or = to 2.5/40 mg Ezetimibe + Simvastatin 10/80 mg Simvastatin 80mg Discharge Plan Admission Admit Date/Time: 06/24/23 23:57 Attending Provider: Elliot Abraham Primary Care Provider: Eric Marion [facility] Consulting Providers: Ed Condon; Manuel Prescott; Panfilo Mojica; Neftali Becerra; Todd Kamara; Jerod Lorenzo; Robyn Dias; Ho Naidu; Adelaida Spangler; Estee Ye; Arslan Quezada; Oscar Suh; Zurdo Zamudio; Dutch Root; Bubba Juárez Discharge Orders/Prescriptions Prescriptions: New prednisone 20 mg Tablet 40 mg PO DAILY@0800 Qty: 10 0RF levofloxacin 750 mg Tablet 750 mg PO Q48 Qty: 3 0RF guaifenesin [Mucus Relief ER] 1,200 mg Tablet Extended Release 12hr 1,200 mg PO BID Qty: 14 0RF Continued atorvastatin 20 mg tablet 20 mg PO DAILY Eliquis 5 mg tablet 5 mg PO BID famotidine 10 mg tablet 20 mg PO DAILY fluoxetine 20 mg capsule 20 mg PO DAILY Jardiance 10 mg tablet 10 mg PO DAILY levothyroxine 100 mcg capsule 100 mcg PO DAILY sucralfate [Carafate] 100 mg/mL suspension 10 ml PO BID divalproex [Depakote] 500 mg tablet,delayed release (DR/EC) 500 mg PO QHS baclofen 10 mg tablet 10 mg PO TID gabapentin 300 mg capsule 300 mg PO 4X/DAY fluoxetine 40 mg capsule 40 mg PO DAILY fluticasone propionate 50 mcg/actuation spray,suspension 1 spray intranasal DAILY PRN (Reason: allergy symptoms) Patient Comments: instill 2 sprays in each nostril daily budesonide-formoterol [Symbicort] 80-4.5 mcg/actuation HFA aerosol inhaler 2 inh inhalation BID Patient Comments: INHALE TWO PUFFS BY MOUTH TWICE DAILY. RINSE MOUTH AFTER USE Ingrezza 40 mg capsule 40 mg PO DAILY albuterol sulfate 90 mcg/actuation HFA aerosol inhaler 1 inh INHALATION PRN PRN (Reason: shortness of breath or wheezing) trazodone 100 mg tablet 100 mg PO QHS Patient Comments: TAKE 1 TABLET BY MOUTH EVERY DAY AT NIGHT meloxicam 7.5 mg tablet 7.5 mg PO DAILY Patient Comments: TAKE 1 TABLET BY MOUTH EVERY DAY FOR 30DAYS ON A FULL STOMACH ondansetron 4 mg tablet,disintegrating 4 mg PO Q8H PRN PRN (Reason: Nausea) Qty: 10 0RF aripiprazole 20 mg tablet 20 mg PO QHS Patient Comments: TAKE ONE TABLET BY MOUTH DAILY AT 9AM pantoprazole 40 mg tablet,delayed release (DR/EC) 40 mg PO DAILY Qty: 30 0RF Changed furosemide 20 mg tablet 40 mg PO DAILY Qty: 60 0RF Discontinued benazepril 5 mg tablet 5 mg PO DAILY Movantik 25 mg tablet 25 mg PO QAM Rx Instructions: must be taken on empty stomach; no food 1 hr after or 2-3 hrs before dose Referrals / Follow Up: Eric Marion [facility], [employer] BILLING CLERK-C [Primary Care Provider] - Disposition Disposition (needs filled in before D/C Order can be placed): Home, Self Care Charges/Coding Visit Charges Inpatient E&M: 75011 Disch Hosp >30min
[2023-06-27 11:44] VITALS: BP 132/120; PULSE 78; RESP 18; O2SAT 100
== END 2023-06-27 12:57 | disposition home or self-care (01) | DRG 189 ==
LOC: ED 23:43 → ICU 06-25 00:07 → PCU 06-26 17:08
PROVIDERS: Emergency Medicine; Admitting Provider Family Medicine; Emergency Provider Emergency Medicine; PCP Nurse Practitioner Family; Visit Provider Internal Medicine
DX: J96.22 Acute and chronic respiratory failure with hypercapnia (principal); I50.33 Acute on chronic diastolic (congestive) heart failure; G92.8 Other toxic encephalopathy; J44.1 Chronic obstructive pulmonary disease with (acute) exacerbation; N17.9 Acute kidney failure, unspecified; I13.0 Hypertensive heart and chronic kidney disease with heart failure and stage 1 through stage 4 chronic kidney disease, or unspecified chronic kidney disease; Z68.41 Body mass index [BMI] 40.0-44.9, adult; I27.20 Pulmonary hypertension, unspecified; D63.8 Anemia in other chronic diseases classified elsewhere; F25.0 Schizoaffective disorder, bipolar type; I95.9 Hypotension, unspecified; G40.909 Epilepsy, unspecified, not intractable, without status epilepticus; N18.31 Chronic kidney disease, stage 3a; E11.40 Type 2 diabetes mellitus with diabetic neuropathy, unspecified; E11.51 Type 2 diabetes mellitus with diabetic peripheral angiopathy without gangrene; E11.22 Type 2 diabetes mellitus with diabetic chronic kidney disease; J96.21 Acute and chronic respiratory failure with hypoxia; I48.0 Paroxysmal atrial fibrillation; E03.9 Hypothyroidism, unspecified; F32.A Depression, unspecified; F17.290 Nicotine dependence, other tobacco product, uncomplicated; E78.00 Pure hypercholesterolemia, unspecified; K21.9 Gastro-esophageal reflux disease without esophagitis; F17.210 Nicotine dependence, cigarettes, uncomplicated; I25.2 Old myocardial infarction; F41.9 Anxiety disorder, unspecified; E66.9 Obesity, unspecified; Z79.01 Long term (current) use of anticoagulants; Z79.899 Other long term (current) drug therapy; Z79.51 Long term (current) use of inhaled steroids
CPT/HCPCS: 36415; 36600; 71045; 80048; 80053; 80076; 80164; 80307; 80329; 81001; 81002; 82140; 82803; 83605; 83735; 83880; 84100; 84443; 84484; 85025; 85379; 87633; 87635; 87651; 93005; 93306; 94002; 94003; 94640; 94667; 94668; 94762; 97110; 97162; 97166; 97530; 97535; 99285; J7030; J7040; J7050; Q9957; A4216; C8929; G0480; J1940

== ENCOUNTER 2023-07-23 14:02 | Emergency (ER) | payer MEDICARE, MEDICAID, SELFPAY ==
[2023-07-23 14:04] VITALS: BP 115/40; PULSE 62; RESP 18; TEMP 37; O2SAT 98; BMI 41.5
[2023-07-23 14:07] VITALS: BP 115/40; PULSE 68; RESP 18; TEMP 37; O2SAT 98
--- NOTE | 2023-07-23 14:38 | EKG12_ITS ---
Test Reason : EDEMA Blood Pressure : / mmHG Vent. Rate : 053 BPM Atrial Rate : 053 BPM P-R Int : 142 ms QRS Dur : 076 ms QT Int : 424 ms P-R-T Axes : -11 046 039 degrees QTc Int : 397 ms Sinus bradycardia Otherwise normal ECG Confirmed by Nicho Mcgraw ([id number]), medical transcription editor CHINTAN KHAN ([id number]) on 07/26/2023 8:56:50 AM Referred By: Confirmed By:Nicho Mcgraw
--- NOTE | 2023-07-23 14:46 | EDS_ITS ---
HPI <FATMATA Snell - Last Filed: 07/23/23 16:38> History of Present Illness Chief Complaint: Edema Narrative Narrative: Patient is a 62-year-old female with a substantial medical history consisting of COPD, diabetes, history of cardiac arrest, schizoaffective disorder, CHF who presents to the emergency department for 3 to 4 days of pain to lower extremities. Patient states that she does take Lasix 20 mg a day, however her legs are getting more swollen, more red and hot to the touch. Patient denies any fever or chills. Patient states that the pain is getting some more severe and she is here for evaluation. Patient denies any specific fevers or chills. She states that she had some like this previously. Patient that she does sit in a recliner with her feet up. PFS <FATMATA Snell - Last Filed: 07/23/23 16:38> [facility] Medical History Alcohol use Cardiac arrest Cardiology follow-up encounter CHF (congestive heart failure) COPD (chronic obstructive pulmonary disease) Decreased left ventricular function Diabetes Dietary restriction Diverticulosis DKA (diabetic ketoacidosis) Easy bruising Emphysema lung Emphysema, unspecified Essential hypertension Fall Gastric reflux Gout Heart attack High cholesterol History of edema History of pain when walking History of ulceration Hypothyroid Injury of back Insomnia Iron deficiency anemia Kidney failure Lichen sclerosus Macular degeneration Major depression Migraine Neuropathy Neuropathy On home oxygen therapy Paroxysmal atrial fibrillation Pericardial effusion with cardiac tamponade PVD (peripheral vascular disease) Rash Schizoaffective disorder, bipolar type Seizures Substance abuse Vapes nicotine containing substance Wears dentures Wears glasses Home Medications ?Medication ?Instructions ?Recorded ?Last Taken ?Type apixaban 5 mg tablet (Eliquis) 5 mg PO BID a. fib. 12/24/22 Unknown History atorvastatin 20 mg tablet 20 mg PO DAILY cholesterol 12/24/22 Unknown History empagliflozin 10 mg tablet 10 mg PO DAILY diabetes 12/24/22 Unknown History (Jardiance) famotidine 10 mg tablet 20 mg PO DAILY 12/24/22 01/07/23 History fluoxetine 20 mg capsule 20 mg PO DAILY 12/24/22 Unknown History levothyroxine 100 mcg capsule 100 mcg PO DAILY 12/24/22 01/07/23 History sucralfate 100 mg/mL oral 10 ml PO BID 12/24/22 Unknown History suspension (Carafate) baclofen 10 mg tablet 10 mg PO TID muscle spasm 12/25/22 Unknown History divalproex 500 mg tablet,delayed 500 mg PO QHS 12/25/22 Unknown History release (Depakote) gabapentin 300 mg capsule 300 mg PO 4X/DAY 12/25/22 01/07/23 History albuterol sulfate 90 mcg/actuation 1 inh inhalation PRN PRN shortness 12/31/22 Unknown History aerosol inhaler of breath or wheezing meloxicam 7.5 mg tablet 7.5 mg PO DAILY 01/01/23 Unknown History trazodone 100 mg tablet 100 mg PO QHS 01/01/23 Unknown History ondansetron 4 mg disintegrating 4 mg PO Q8H PRN PRN Nausea #10 tabs 02/27/23 Unknown Rx tablet aripiprazole 20 mg tablet 20 mg PO QHS mental health 03/09/23 Unknown History pantoprazole 40 mg tablet,delayed 40 mg PO DAILY #30 tabs 03/09/23 Unknown Rx release budesonide-formoterol HFA 80 2 inh inhalation BID breathing 04/27/23 Unknown History mcg-4.5 mcg/actuation aerosol inhaler (Symbicort) fluoxetine 40 mg capsule 40 mg PO DAILY 04/27/23 Unknown History fluticasone propionate 50 1 spray intranasal DAILY PRN 04/27/23 Unknown History mcg/actuation nasal allergy symptoms spray,suspension valbenazine 40 mg capsule 40 mg PO DAILY 04/27/23 Unknown History (Ingrezza) furosemide 20 mg tablet 40 mg (2 x 20 mg) PO DAILY #60 tabs 06/27/23 Unknown Rx guaifenesin 1,200 mg tablet, 1,200 mg PO BID #14 tabs 06/27/23 Unknown Rx extended release 12 hr (Mucus Relief ER) levofloxacin 750 mg tablet 750 mg PO Q48 #3 tabs 06/27/23 Unknown Rx prednisone 20 mg tablet 40 mg (2 x 20 mg) PO DAILY@0800 06/27/23 Unknown Rx #10 tabs cephalexin 500 mg capsule 500 mg PO Q6 #40 CAPSULES 07/23/23 Unknown Rx Allergy/AdvReac Type Severity Reaction Status Date / Time aspirin Allergy Mild Hives Verified 07/23/23 14:09 erythromycin base Allergy Mild Hives Verified 07/23/23 14:09 Penicillins Allergy Mild Hives Verified 07/23/23 14:09 polyethylene glycol 3350 Allergy Mild Nausea/Vom/ Verified 07/23/23 14:09 (From Miralax) Diarrhea tramadol Allergy Mild Hives Verified 07/23/23 14:09 tomato Allergy Food Verified 07/23/23 14:09 Allergy Family History Mother Heart disease Hypertension Cancer Father Brain aneurysm age 40 CVA (cerebral vascular accident) Cancer Brother Colon cancer Surgical History H/O: hysterectomy History of bilateral cataract extraction History of delivery History of cholecystectomy History of lithotripsy Hx of toe surgery Hx of vein stripping Social History Smoking Status: Current every day smoker tobacco type: cigarettes and e- cigarettes Tobacco: How many years used: 18 Electronic Cigarette Use: with nicotine second hand exposure: No alcohol intake: never substance use type: does not use caffeine: Yes ROS <FATMATA Snell - Last Filed: 07/23/23 16:38> ROS ED ROS Narrative Constitutional: Negative for fever, chills, weight loss, weakness Eyes: Negative for vision loss, vision change, double vision ENT: Negative for any sore throat, ear pain, congestion Cardiovascular: Negative for any chest pain, tightness, palpitations Respiratory: Negative for any cough, sputum production, hemoptysis, dyspnea, dyspnea on exertion, orthopnea Gastrointestinal: Negative for any abdominal pain, nausea, vomiting, diarrhea, constipation, blood in stool, blood in vomit : Negative for any urinary frequency, dysuria, retention, blood in urine Muscle skeletal: Negative for any neck pain, back pain. Positive for bilateral leg pain, bilateral leg swelling and redness Neurological: Negative for any headache, syncope, dizziness Skin: Negative for any rashes, itching, abrasions, lacerations Psychiatric: Negative for any depression, anxiety, stress, suicidal ideation, homicidal ideation Hematologic: Negative for any excessive bruising, easy bleeding EXAM <FATMATA Snell - Last Filed: 07/23/23 16:38> Physical Exam Narrative Exam Narrative: Vital signs reviewed. Patient is alert and orient x 4 no obvious distress HEET: Head normocephalic atraumatic, TMs clear bilaterally. Posterior pharynx is clear, moist mucous membranes. Nares clear bilaterally. Neck: Supple with no lymphadenopathy or tenderness. No signs of meningismus. Cardiac: Regular rate and rhythm no murmurs gallops or rubs, equal peripheral pulses bilaterally. Respiratory: Patient has expiratory wheezes throughout pulmonary exam.. No chest tenderness. Abdomen: Soft, nontender, nondistended. No abdominal bruit or pulsatile masses. No hepatosplenomegaly Extremities: Patient has +2 pitting edema, patient does have some erythema, edema that circumferential around the mid lower extremities. Just underneath the knee. Cellulitis versus venous stasis. No evidence of any abscess formation, no drainage noted. +2 pedal pulses. No signs of gross trauma or deformity. Active full range of motion of all extremities. Neuro: Cranial nerves II through XII intact, no focal neurological deficits. Skin: Clean dry and intact with no rash, purpura, petechiae, vesicles or pustules. Backs/flank: No CVA tenderness, no midline spinal tenderness, no deformity. Psych: Normal mood and affect. No SI, HI or acute psychosis. Const Vital Signs: 07/23/23 14:04 07/23/23 14:07 07/23/23 14:38 Temperature 98.6 F 98.6 F Temperature Source Oral Oral Pulse Rate 62 68 Respiratory Rate 18 18 Blood Pressure 115/40 L 115/40 L Blood Pressure Mean 65 65 Pulse Ox 98 98 Oxygen Delivery Method Room Air Room Air Room Air 07/23/23 15:07 07/23/23 15:12 07/23/23 16:07 Temperature 98 F 97.9 F Temperature Source Temporal Oral Pulse Rate 60 60 66 Respiratory Rate 18 12 18 Blood Pressure 105/51 L 104/53 L Blood Pressure Mean 69 70 Pulse Ox 98 94 Oxygen Delivery Method Room Air Room Air 07/23/23 16:41 Temperature 97.9 F Temperature Source Pulse Rate 69 Respiratory Rate 18 Blood Pressure 104/53 L Blood Pressure Mean 70 Pulse Ox 94 Oxygen Delivery Method Positive well nourished, well developed and obese General Appearance ED: well developed Nutritional Appearance: obese <Dr. Chandrakant Rodriguez MD - Last Filed: 07/24/23 00:15> Physical Exam Const Vital Signs: 07/23/23 14:04 07/23/23 14:07 07/23/23 14:38 Temperature 98.6 F 98.6 F Temperature Source Oral Oral Pulse Rate 62 68 Respiratory Rate 18 18 Blood Pressure 115/40 L 115/40 L Blood Pressure Mean 65 65 Pulse Ox 98 98 Oxygen Delivery Method Room Air Room Air Room Air 07/23/23 15:07 07/23/23 15:12 07/23/23 16:07 Temperature 98 F 97.9 F Temperature Source Temporal Oral Pulse Rate 60 60 66 Respiratory Rate 18 12 18 Blood Pressure 105/51 L 104/53 L Blood Pressure Mean 69 70 Pulse Ox 98 94 Oxygen Delivery Method Room Air Room Air 07/23/23 16:41 Temperature 97.9 F Temperature Source Pulse Rate 69 Respiratory Rate 18 Blood Pressure 104/53 L Blood Pressure Mean 70 Pulse Ox 94 Oxygen Delivery Method [facility] <FATMATA Snell - Last Filed: 07/23/23 16:38> [facility] Lab Data Labs: Laboratory Results - last 24 hr 07/23/23 13:54 WBC 8.0 RBC 3.77 L Hgb 10.6 L Hct 34.8 L MCV 92.3 MCH 28.1 MCHC 30.5 L RDW Std Deviation 52.1 H RDW Coeff of Penny 15.4 H Plt Count 134 L MPV 10.4 Immature Gran % (Auto) 0.900 Neut % (Auto) 69.2 Lymph % (Auto) 17.2 L [place] % (Auto) 8.9 Eos % (Auto) 3.5 Baso % (Auto) 0.3 Absolute Neuts (auto) 5.5 Absolute Lymphs (auto) 1.37 Nucleated RBC % 0 Sodium 137 Potassium 4.3 Chloride 103 Carbon Dioxide 31.0 Anion Gap 3 L BUN 23 H Creatinine 1.70 H Estim Creat Clear Calc 39.57 Est GFR (MDRD) Af Amer 39 L Est GFR (MDRD) Non-Af 32 L BUN/Creatinine Ratio 13.5 Glucose 326 H Calcium 9.0 Troponin I High Sens 8 B-Natriuretic Peptide 49.9 ABG Data ABG results: ABG 07/23/23 15:20 Specimen Type DEIDRA Sample Site Not entered VBG pH 7.33 VBG pO2 24 L VBG HCO3 33 H VBG Total CO2 35 H VBG O2 Sat (Calc) 37 L VBG Base Excess 7 H POC Mix VBG pCO2 Pt Tmp 61.7 H O2 Delivery Device Not entered Radiography Diagnostic Testing: Clinical Impression(s) from Imaging Studies Chest X-Ray 07/23/23 15:20 IMPRESSION: No acute abnormalities. Electronically Signed: Junior Carpio MD at 15:34 EDT , EKG EKG shows sinus bradycardia: Comments: Rate 53 bpm, [place] 142 ms, QRS duration 76 ms, no acute ST elevation, no acute infarct noted. Treatment and Re-Evaluation :: Differential diagnosis includes however is not limited to: COPD exacerbation, pneumonia, bilateral lower leg cellulitis, bilateral lower leg edema, venous stasis Patient does not look toxic, vital signs are stable, patient appears to be in no obvious distress. Patient presents to the emergency department lower leg edema, redness to bilateral lower extremities. She is current for cellulitis, cellulitis versus venous stasis upon my initial evaluation. Patient wishes to basic laboratory values look for any leukocytosis signs of infection. Patient receive BNP, BMP. Chest x-ray will be ordered. Patient received some breathing treatments secondary to the expiratory wheezes heard. Chest x-ray will be completed looking for any pneumonia or pleural effusions. Patient does take Lasix 20 mg daily, low suspicion for DVT secondary to patient being on Eliquis, as well as the symptoms being bilateral. Patient had a VBG, patient's pH was 7.33 which is slightly low, CO2 61.7 with a O2 24, bicarb is 32.6, patient was given breathing treatments.Patient's chest x- ray shows no acute abnormalities. Patient's laboratory values show slight anemia with hemoglobin 10.6, this is baseline. Chemistries show creatinine 1.7, again this is baseline, over the last year, the patient's been anywhere between 1.8 and 2. Glucose is 326, patient does have history of diabetes. Troponin is currently in process. Patient be reevaluated after breathing treatments. Patient be given Invanz IV for cellulitis. Patient's proBNP was negative. Patient's BNP was negative at 49.9, patient's troponin was negative. On reevaluation, the patient was 94% on room air. At this time, patient will double her Lasix for 2 days, she replaced on Keflex 4 times a day for 10 days. She is instructed return for any worsening symptoms. She is happy with the plan of care, all questions answered, stable for discharge. I did speak with the patient regarding possible admission, she at this time elected be cared for outpatient. She will follow-up closely. She instructed return for any worsening redness fever chills nausea or vomiting. All questions answered, stable for discharge. <Dr. Chandrakant Rodriguez MD - Last Filed: 07/24/23 00:15> [facility] MDM Narrative Medical decision making narrative: I have personally performed a face to face assessment of the patient and have reviewed the DIANNA Note. I performed a substantive portion of the visit including all aspects of the following. My resendiz findings include: History is 3 days of pain, redness, swelling both lower extremities. She states they were doing very well and without any redness prior to that. She has a history of CHF, COPD, she is wheezy but states she has no more short of breath than usual and states she feels like she is doing very well but does feel malaised since her legs been red and painful. She does admit to having some chest pressure for the past 2 days it has been mild nonpleuritic and constant. She states otherwise she feels pretty good compared to usual and is able to get around with her rollator as usual. Exam is alert and NAD. Bilateral lower leg symmetric erythema, warmth, very tender. Full range of motion all joints of lower extremities or compartments soft nondistended no subcutaneous emphysema or necrotic tissue. Lungs are wheezy throughout, no JVD. No respiratory distress. Heart regular. Medical Decison Making cellulitis versus CHF versus stasis dermatitis from venous insufficiency; workup including chest x-ray, EKG, troponin given her lung exam and chest pressure, EKG my interpretation shows borderline bradycardia but no acute injury pattern. Chest x-ray 1 view my interpretation shows chronic changes but no overt CHF or pneumonia. Labs reviewed, no significant leukocytosis, BNP is well within normal limits ruling out acute decompensated congestive heart failure, and troponin is normal ruling out acute coronary syndrome. Offered admission patient declines, will treat her with antibiotics we had ordered IV Invanz anticipating possible admission but she does not want to stay. Will order oral antibiotics and have her follow-up closely as an outpatient. She was given aerosols, her VBG looks pretty good with chronic CO2 retention, states she does not do any aerosols at home and still was breathing fine although she was quite wheezy. She is doing better after the aerosols. Other additions or changes: [None] Lab Data Labs: Laboratory Results - last 24 hr 07/23/23 13:54 WBC 8.0 RBC 3.77 L Hgb 10.6 L Hct 34.8 L MCV 92.3 MCH 28.1 MCHC 30.5 L RDW Std Deviation 52.1 H RDW Coeff of Penny 15.4 H Plt Count 134 L MPV 10.4 Immature Gran % (Auto) 0.900 Neut % (Auto) 69.2 Lymph % (Auto) 17.2 L [place] % (Auto) 8.9 Eos % (Auto) 3.5 Baso % (Auto) 0.3 Absolute Neuts (auto) 5.5 Absolute Lymphs (auto) 1.37 Nucleated RBC % 0 Sodium 137 Potassium 4.3 Chloride 103 Carbon Dioxide 31.0 Anion Gap 3 L BUN 23 H Creatinine 1.70 H Estim Creat Clear Calc 39.57 Est GFR (MDRD) Af Amer 39 L Est GFR (MDRD) Non-Af 32 L BUN/Creatinine Ratio 13.5 Glucose 326 H Calcium 9.0 Troponin I High Sens 8 B-Natriuretic Peptide 49.9 ABG Data ABG results: ABG 07/23/23 15:20 Specimen Type DEIDRA Sample Site Not entered VBG pH 7.33 VBG pO2 24 L VBG HCO3 33 H VBG Total CO2 35 H VBG O2 Sat (Calc) 37 L VBG Base Excess 7 H POC Mix VBG pCO2 Pt Tmp 61.7 H O2 Delivery Device Not entered Radiography Diagnostic Testing: Clinical Impression(s) from Imaging Studies Chest X-Ray 07/23/23 15:20 IMPRESSION: No acute abnormalities. Electronically Signed: Junior Carpio MD at 15:34 EDT , Discharge Plan Triage Chief Complaint: Edema ED Midlevel Provider: Keenan Moody ED Provider: Chandrakant Rodriguez Dx/Rx/DC Orders Clinical Impression: Cellulitis of both lower extremities, COPD (chronic obstructive pulmonary disease), Leg edema Instructions: Asthma and COPD, ED Cellulitis Prescriptions: New cephalexin 500 mg capsule 500 mg PO Q6 Qty: 40 0RF No Action atorvastatin 20 mg tablet 20 mg PO DAILY Eliquis 5 mg tablet 5 mg PO BID famotidine 10 mg tablet 20 mg PO DAILY fluoxetine 20 mg capsule 20 mg PO DAILY Jardiance 10 mg tablet 10 mg PO DAILY levothyroxine 100 mcg capsule 100 mcg PO DAILY sucralfate [Carafate] 100 mg/mL suspension 10 ml PO BID divalproex [Depakote] 500 mg tablet,delayed release (DR/EC) 500 mg PO QHS baclofen 10 mg tablet 10 mg PO TID gabapentin 300 mg capsule 300 mg PO 4X/DAY fluoxetine 40 mg capsule 40 mg PO DAILY fluticasone propionate 50 mcg/actuation spray,suspension 1 spray intranasal DAILY PRN (Reason: allergy symptoms) Patient Comments: instill 2 sprays in each nostril daily budesonide-formoterol [Symbicort] 80-4.5 mcg/actuation HFA aerosol inhaler 2 inh inhalation BID Patient Comments: INHALE TWO PUFFS BY MOUTH TWICE DAILY. RINSE MOUTH AFTER USE Ingrezza 40 mg capsule 40 mg PO DAILY albuterol sulfate 90 mcg/actuation HFA aerosol inhaler 1 inh INHALATION PRN PRN (Reason: shortness of breath or wheezing) trazodone 100 mg tablet 100 mg PO QHS Patient Comments: TAKE 1 TABLET BY MOUTH EVERY DAY AT NIGHT meloxicam 7.5 mg tablet 7.5 mg PO DAILY Patient Comments: TAKE 1 TABLET BY MOUTH EVERY DAY FOR 30DAYS ON A FULL STOMACH ondansetron 4 mg tablet,disintegrating 4 mg PO Q8H PRN PRN (Reason: Nausea) Qty: 10 0RF aripiprazole 20 mg tablet 20 mg PO QHS Patient Comments: TAKE ONE TABLET BY MOUTH DAILY AT 9AM pantoprazole 40 mg tablet,delayed release (DR/EC) 40 mg PO DAILY Qty: 30 0RF prednisone 20 mg Tablet 40 mg PO DAILY@0800 Qty: 10 0RF levofloxacin 750 mg Tablet 750 mg PO Q48 Qty: 3 0RF guaifenesin [Mucus Relief ER] 1,200 mg Tablet Extended Release 12hr 1,200 mg PO BID Qty: 14 0RF furosemide 20 mg tablet 40 mg PO DAILY Qty: 60 0RF Primary Care Provider: Eric Marion Referrals: Eric Marion, [employer] [Primary Care Provider] - Activity Restrictions/Additional Instructions: You will double up on your Lasix for the next 2 days. You need to follow-up with your primary care provider to make sure that the cellulitis is improving. Ensure the elevate your legs higher than your heart. Print Language: [place]se Disposition Disposition: Home, Self Care Discharge Date/Time: 07/23/23 17:02
[2023-07-23 14:58] LABS: Absolute Lymphocyte Count 1.37 X10^3/uL (0.83-4.51); Absolute Neutrophil Count 5.5 X10^3/uL (2.0-7.7); Basophil# 0.02 X10^3/uL; Basophil% 0.3 % (0-1); Eosinophil# 0.28 X10^3/uL; Eosinophils% 3.5 % (0-5); Hematocrit 34.8 % (37-47); Hemoglobin 10.6 g/dL (12.0-15.0); Lymphocyte # 1.37 X10^3/ul (0.83-4.51); Lymphocyte % 17.2 % (19-41); Mean Corp Hgb Conc 30.5 g/dL (32-36); Mean Corpuscular Hgb 28.1 pg (27.0-32.0); Mean Corpuscular Volume 92.3 fL (81-99); Mean Platelet Vol. 10.4 fl (6.2-12.0); Monocyte# 0.71 X10^3/uL; Monocyte% 8.9 % (0-10); NRBC Flagged by Analyzer 0 % (0-5); Neutrophil # 5.53 X10^3/uL (2.7-7.7); Neutrophil % 69.2 % (47-70); Platelet Count 134 K/mm3 (150-450); RBC Distribution Width CV 15.4 % (11.6-14.6); RBC Distribution Width SD 52.1 fl (35.1-43.9); Red Blood Count 3.77 M/mm3 (4.2-5.4)
[2023-07-23 15:07] VITALS: BP 105/51; PULSE 60; RESP 18; TEMP 36.6; O2SAT 98
[2023-07-23 15:12] VITALS: PULSE 60; RESP 12
[2023-07-23] MEDS: Albuterol 2.5 MG/3 ML VIAL.NEB. INHALATION (15:12)
[2023-07-23] MEDS: Ipratropium/Albuterol Sulfate 3 ML AMPUL.NEB INHALATION (15:12)
[2023-07-23 15:15] LABS: Anion Gap 3 (5-15); BUN 23 mg/dL (7-18); BUN/Creat Ratio 13.5 RATIO (10-20); Chloride 103 mmol/L (98-107); EST Glomerular Filtration Rate 32 mL/min (>60); Est Glom Filt Rate - Afr Amer 39 mL/min (>60); Estimated Creatinine Clearance 39.57 ml/min; Glucose 326 mg/dL (74-106); Potassium 4.3 mmol/L (3.5-5.1); Sodium Level 137 mmol/L (136-145)
--- NOTE | 2023-07-23 15:20 | RAD_ITS ---
STUDY: X-RAY CHEST REASON FOR EXAM: Female, 62 years old. Cough TECHNIQUE: Single AP portable view of the chest. COMPARISON: Comparison is made with prior study June 24, 2023. FINDINGS: A right-sided portacatheter is seen with the tip at the junction of the superior vena cava and right atrium. EKG electrodes are seen. The lungs are clear and expanded. There is no demonstrated pleural abnormality. Normal size heart. Normal mediastinum and jeannie. Normal visualized pulmonary arteries. Normal visualized aortic arch and descending thoracic aorta. Normal visualized thoracic spine. There is degenerative osteoarthritis of the bilateral shoulders. There is no demonstrated abnormality of the visualized soft tissue structures of the upper abdomen. RAD/Chest 1 View (Portable) IMPRESSION: No acute abnormalities. Electronically Signed: Junior Carpio MD at 15:34 EDT ,
[2023-07-23 15:23] LABS: BNP,B-Type NATRIURETIC PEPTIDE 49.9 pg/mL (0-100)
[2023-07-23 15:25] LABS: Blood Gas Specimen Type VEN; O2 Delivery Device Not entered; SITE Not entered; VBG BASE EXCESS 7 mmol/L (-1.0-3.5); VBG Bicarbonate 33 mmol/L (22-26); VBG PO2 24 mmHg (25-40); VBG SO2 37 % (50-70); VBG TCO2 35 mmol/L (23-33); VBG pCO2 61.7 mmHg (41-51); VBG pH 7.33 (7.32-7.42)
[2023-07-23 16:07] VITALS: BP 104/53; PULSE 66; RESP 18; TEMP 36.6; O2SAT 94
[2023-07-23] MEDS: Ertapenem Sod 1 GM in 0.9% Normal Saline (50mL MB+) 50 ML IV (16:09)
[2023-07-23 16:26] LABS: Troponin-I HS 8 pg/mL (3.0-54.0)
[2023-07-23 16:41] VITALS: BP 104/53; PULSE 69; RESP 18; TEMP 36.6; O2SAT 94
== END 2023-07-23 17:02 | disposition home or self-care (01) ==
PROVIDERS: Nurse Practitioner; Emergency Provider Emergency Medicine; PCP Nurse Practitioner Family; Visit Provider Emergency Medicine
DX: L03.116 Cellulitis of left lower limb (principal); I50.9 Heart failure, unspecified; I11.0 Hypertensive heart disease with heart failure; J43.9 Emphysema, unspecified; E11.51 Type 2 diabetes mellitus with diabetic peripheral angiopathy without gangrene; E11.40 Type 2 diabetes mellitus with diabetic neuropathy, unspecified; R00.1 Bradycardia, unspecified; L03.115 Cellulitis of right lower limb; F17.210 Nicotine dependence, cigarettes, uncomplicated; R60.0 Localized edema; Z79.899 Other long term (current) drug therapy; F17.290 Nicotine dependence, other tobacco product, uncomplicated; E66.9 Obesity, unspecified
CPT/HCPCS: 71045; 80048; 82803; 83880; 84484; 85025; 93005; 94640; 96365; 99284; J7050

== ENCOUNTER 2023-07-25 22:37 | Emergency (ER) | payer MEDICARE, MEDICAID, SELFPAY ==
[2023-07-25 22:38] VITALS: BP 127/70; PULSE 75; RESP 20; TEMP 36.6; O2SAT 95; BMI 42.3
[2023-07-25 22:40] VITALS: BP 127/70; PULSE 75; RESP 20; TEMP 36.6; O2SAT 95
--- NOTE | 2023-07-25 23:18 | RAD_ITS ---
STUDY: X-RAY - LEFT TIBIA AND FIBULA REASON FOR EXAM: Female, 62 years old. OSTEOMYELITIS? TECHNIQUE: 2 view(s) of the tibia and fibula were obtained. COMPARISON: None. FINDINGS: Normal visualized tibia. Normal visualized fibula. Status post knee arthroplasty. There is non-specific soft tissue swelling. No bony destruction to suggest osteomyelitis. RAD/Tibia & Fibula 2 Views IMPRESSION: Diffuse soft tissue swelling but no radiographic evidence of osteomyelitis. Electronically Signed: Gunner Modi MD at 23:35 EDT ,
--- NOTE | 2023-07-25 23:18 | RAD_ITS ---
STUDY: X-RAY - RIGHT TIBIA AND FIBULA REASON FOR EXAM: Female, 62 years old. ? Osteomyelitis TECHNIQUE: 2 view(s) of the tibia and fibula were obtained. COMPARISON: None. FINDINGS: Normal visualized tibia. Normal visualized fibula. Status post knee arthroplasty. There is non-specific soft tissue swelling. No bony destruction to suggest osteomyelitis. RAD/Tibia & Fibula 2 Views IMPRESSION: Diffuse soft tissue swelling but no radiographic evidence of osteomyelitis. Electronically Signed: Gunner Modi MD at 23:34 EDT ,
[2023-07-25 23:30] LABS: Absolute Lymphocyte Count 1.77 X10^3/uL (0.83-4.51); Absolute Neutrophil Count 3.8 X10^3/uL (2.0-7.7); Basophil# 0.02 X10^3/uL; Basophil% 0.3 % (0-1); Eosinophils% 4.5 % (0-5); Hematocrit 34.2 % (37-47); Hemoglobin 10.5 g/dL (12.0-15.0); Lymphocyte # 1.77 X10^3/ul (0.83-4.51); Lymphocyte % 26.7 % (19-41); Mean Corp Hgb Conc 30.7 g/dL (32-36); Mean Corpuscular Hgb 28.3 pg (27.0-32.0); Mean Corpuscular Volume 92.2 fL (81-99); Mean Platelet Vol. 9.8 fl (6.2-12.0); Monocyte# 0.67 X10^3/uL; Monocyte% 10.1 % (0-10); NRBC Flagged by Analyzer 0 % (0-5); Neutrophil # 3.83 X10^3/uL (2.7-7.7); Neutrophil % 57.9 % (47-70); Platelet Count 127 K/mm3 (150-450); RBC Distribution Width CV 15.6 % (11.6-14.6); Red Blood Count 3.71 M/mm3 (4.2-5.4); White Blood Count 6.6 K/mm3 (4.4-11.0)
[2023-07-25] MEDS: Clindamycin 900 MG/50 ML BAG 75 MG IV (23:35)
[2023-07-25] MEDS: Ondansetron 4 MG/2 ML Vial IV (23:36)
[2023-07-25] MEDS: Morphine 4 MG/ML Syringe IV (23:36)
[2023-07-25 23:40] VITALS: BP 119/50; PULSE 89; RESP 16; TEMP 36.6; O2SAT 96
[2023-07-25 23:45] LABS: Anion Gap 3 (5-15); BUN 23 mg/dL (7-18); BUN/Creat Ratio 13.1 RATIO (10-20); Calcium,Total 8.7 mg/dL (8.5-10.1); Chloride 102 mmol/L (98-107); Creatinine, Serum 1.76 mg/dL (0.55-1.02); EST Glomerular Filtration Rate 31 mL/min (>60); Est Glom Filt Rate - Afr Amer 37 mL/min (>60); Estimated Creatinine Clearance 38.59 ml/min; Glucose 235 mg/dL (74-106); Potassium 4.1 mmol/L (3.5-5.1); Sodium Level 137 mmol/L (136-145)
[2023-07-25 23:48] LABS: Lactic Acid 1.3 mmol/L (0.4-1.9)
[2023-07-26] VITALS: BP 106/51; PULSE 66; RESP 18; TEMP 36.6; O2SAT 96
[2023-07-26 00:01] LABS: BNP,B-Type NATRIURETIC PEPTIDE 26.5 pg/mL (0-100)
[2023-07-26 00:34] LABS: Procalcitonin 0.07 ng/mL (0.00-0.09)
[2023-07-26 00:38] VITALS: BP 95/52; PULSE 67; RESP 15; O2SAT 97
[2023-07-26 01:00] VITALS: BP 99/59; PULSE 67; RESP 18; TEMP 36.8; O2SAT 98
[2023-07-26 02:00] VITALS: BP 103/52; PULSE 79; RESP 18; TEMP 36.7; O2SAT 96
--- NOTE | 2023-07-26 02:24 | PCM.CONS.GEN ---
Assessment & Plan Assessment/Plan (1) Leg edema: PLAN: Plan Bilateral lower extremity edema Patient is not in overt CHF, however, her weight has gone up roughly 10 kg since last month. Patient states that she had been on 40 mg twice daily but had been changed over to daily. Though the patient's increased weight, I feel that she would benefit from increasing furosemide intake to 40 mg twice a day with close follow-up with her primary care physician. Patient had an echocardiogram on May 24 that showed an EF of 65% but with pulmonary artery systolic pressure of 46 mmHg. 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 I advised the patient to check her weight daily and to get a scale. Any scale would do and to check her weight daily and keep a record of that. Also recommend that she have limit your fluid intake of 1.5 L/day. Looking at her legs, I do not feel that she has any active infection with her negative procalcitonin and normal white count, I do not feel that she has cellulitis. I feel the patient can be discharged back to home. Did discuss the case with Bernadette and I did recommend giving a dose of IV furosemide before discharge and a did not recommend antibiotics as I do not feel that this is cellulitis. HPI Consult Data Date of Consult: 07/26/23 HPI Narrative Reason for Consultation: Consult requested by Dr. Fleming for LE edema. HPI Narrative: JADE SWANSON, is a 62 F who presents with increased lower extremity edema. States that it got worsened yesterday which led her to present to the emergency room. Legs were warm and tender. Patient was having pain. Concern was for having cellulitis though the patient was not having fever or chills. She denies any shortness of breath. Patient does take Lasix. Was here in June for acute hypoxic and hypercapnic respiratory failure. Patient was hypotensive did require IV fluids and then pressors. Patient has put on roughly 10 kg since June. I asked if she checks her weight daily, she said that she does not have a scale. She does not limit her fluid intake as well as she expressed she does not know specifically how much fluid she takes and on a daily basis. [facility] Medical History Pericardial effusion with cardiac tamponade Wears glasses Wears dentures Substance abuse Alcohol use Rash Gout High cholesterol PVD (peripheral vascular disease) Easy bruising Seizures Dietary restriction Gastric reflux Injury of back Vapes nicotine containing substance Fall History of pain when walking History of edema Insomnia Major depression On home oxygen therapy Emphysema, unspecified Neuropathy Cardiology follow-up encounter History of ulceration DKA (diabetic ketoacidosis) Cardiac arrest Lichen sclerosus Macular degeneration Essential hypertension Decreased left ventricular function Paroxysmal atrial fibrillation Diverticulosis Migraine Iron deficiency anemia COPD (chronic obstructive pulmonary disease) CHF (congestive heart failure) Neuropathy Kidney failure Hypothyroid Schizoaffective disorder, bipolar type Emphysema lung Diabetes Heart attack Home Medications ?Medication ?Instructions ?Recorded ?Last Taken ?Type apixaban 5 mg tablet (Eliquis) 5 mg PO BID a. fib. 12/24/22 Unknown History atorvastatin 20 mg tablet 20 mg PO DAILY cholesterol 12/24/22 Unknown History empagliflozin 10 mg tablet 10 mg PO DAILY diabetes 12/24/22 Unknown History (Jardiance) sucralfate 100 mg/mL oral 10 ml PO BID 12/24/22 Unknown History suspension (Carafate) baclofen 10 mg tablet 10 mg PO TID muscle spasm 12/25/22 Unknown History divalproex 500 mg tablet,delayed 500 mg PO QHS 12/25/22 Unknown History release (Depakote) gabapentin 300 mg capsule 300 mg PO 4X/DAY 12/25/22 01/07/23 History albuterol sulfate 90 mcg/actuation 1 inh inhalation PRN PRN shortness 12/31/22 Unknown History aerosol inhaler of breath or wheezing meloxicam 7.5 mg tablet 7.5 mg PO DAILY 01/01/23 Unknown History trazodone 100 mg tablet 100 mg PO QHS 01/01/23 Unknown History ondansetron 4 mg disintegrating 4 mg PO Q8H PRN PRN Nausea #10 tabs 02/27/23 Unknown Rx tablet aripiprazole 20 mg tablet 20 mg PO QHS mental health 03/09/23 Unknown History pantoprazole 40 mg tablet,delayed 40 mg PO DAILY #30 tabs 03/09/23 Unknown Rx release budesonide-formoterol HFA 80 2 inh inhalation BID breathing 04/27/23 Unknown History mcg-4.5 mcg/actuation aerosol inhaler (Symbicort) fluoxetine 40 mg capsule 40 mg PO DAILY 04/27/23 Unknown History fluticasone propionate 50 1 spray intranasal DAILY PRN 04/27/23 Unknown History mcg/actuation nasal allergy symptoms spray,suspension valbenazine 40 mg capsule 40 mg PO DAILY 04/27/23 Unknown History (Ingrezza) furosemide 20 mg tablet 40 mg (2 x 20 mg) PO DAILY #60 tabs 06/27/23 Unknown Rx guaifenesin 1,200 mg tablet, 1,200 mg PO BID #14 tabs 06/27/23 Unknown Rx extended release 12 hr (Mucus Relief ER) cephalexin 500 mg capsule 500 mg PO Q6 #40 CAPSULES 07/23/23 Unknown Rx benazepril 5 mg tablet 5 mg PO DAILY 07/25/23 Unknown History divalproex 500 mg tablet,extended 500 mg PO DAILY 07/25/23 Unknown History release 24 hr famotidine 20 mg tablet 20 mg PO DAILY 07/25/23 Unknown History hydrocodone-acetaminophen 5-325mg 1 tab PO BID PRN PRN pain 07/25/23 Unknown History 5mg-325mg insulin glargine 100 unit/mL (3 20 unit subcut DAILY 07/25/23 Unknown History mL) subcutaneous pen (Lantus Solostar U-100 Insulin) levothyroxine 100 mcg tablet 100 mcg PO DAILY 07/25/23 Unknown History oxybutynin chloride 5 mg 5 mg PO DAILY 07/25/23 Unknown History tablet,extended release 24 hr tirzepatide 2.5 mg/0.5 mL 2.5 mg subcut QWEEK 07/25/23 07/24/23 History subcutaneous pen injector (Sangunviviana) furosemide 40 mg tablet (Lasix) 40 mg PO BID 10 days #20 tabs 07/26/23 Unknown Rx Allergy/AdvReac Type Severity Reaction Status Date / Time aspirin Allergy Mild Hives Verified 07/23/23 14:09 erythromycin base Allergy Mild Hives Verified 07/23/23 14:09 Penicillins Allergy Mild Hives Verified 07/23/23 14:09 polyethylene glycol 3350 Allergy Mild Nausea/Vom/ Verified 07/23/23 14:09 (From Miralax) Diarrhea tramadol Allergy Mild Hives Verified 07/23/23 14:09 tomato Allergy Food Verified 07/23/23 14:09 Allergy Family History Mother Heart disease Hypertension Cancer Father Brain aneurysm age 40 CVA (cerebral vascular accident) Cancer Brother Colon cancer Surgical History Hx of vein stripping Hx of toe surgery History of lithotripsy History of delivery History of bilateral cataract extraction History of cholecystectomy H/O: hysterectomy Social History Smoking Status: Current every day smoker tobacco type: cigarettes and e-cigarettes Tobacco: How many years used: 18 Electronic Cigarette Use: with nicotine second hand exposure: No alcohol intake: never substance use type: does not use caffeine: Yes ROS ROS Narrative All review of systems were negative except as mentioned above in the history of present illness and the other review of systems. Physical Exam Const alert and no apparent distress Constitutional Narrative: No respiratory distress. No conversational dyspnea. Appears older than stated age. Obese. HEENT normocephalic and head/scalp atraumatic Resp normal respiratory effort and no retractions Cardio regular rate, regular rhythm, S1 normal heart sound and S2 normal heart sound GI normal to inspection, nondistended, normoactive bowel sounds, soft to palpation and non-tender Extremity Extremity Narrative: Bilateral lower extremity edema. Some mild lymphedematous changes to the lower extremities. No warmth no overt demarcation. Lab / Micro Data 07/25/23 22:50 07/25/23 22:50 Labs: Laboratory Results - last 24 hr 07/25/23 22:50: WBC 6.6, RBC 3.71 L, Hgb 10.5 L, Hct 34.2 L, MCV 92.2, MCH 28.3, MCHC 30.7 L, RDW Std Deviation 52.0 H, RDW Coeff of Penny 15.6 H, Plt Count 127 L, MPV 9.8, Immature Gran % (Auto) 0.500, Neut % (Auto) 57.9, Lymph % (Auto) 26.7, [place] % (Auto) 10.1 H, Eos % (Auto) 4.5, Baso % (Auto) 0.3, Absolute Neuts (auto) 3.8, Absolute Lymphs (auto) 1.77, Nucleated RBC % 0, Sodium 137, Potassium 4.1, Chloride 102, Carbon Dioxide 32.0, Anion Gap 3 L, BUN 23 H, Creatinine 1.76 H, Estim Creat Clear Calc 38.59, Est GFR (MDRD) Af Amer 37 L, Est GFR (MDRD) Non-Af 31 L, BUN/Creatinine Ratio 13.1, Glucose 235 H, Lactic Acid 1.3, Calcium 8.7, B-Natriuretic Peptide 26.5 07/25/23 23:56: Procalcitonin 0.07 Imaging Radiology Impression Tibia/Fibula X-Ray 07/25/23 23:18 IMPRESSION: Diffuse soft tissue swelling but no radiographic evidence of osteomyelitis. Electronically Signed: Gunner Modi MD at 23:34 EDT Reading Location ID and State: [id number] / [employer] Tel , Service support , Tibia/Fibula X-Ray 07/25/23 23:18 IMPRESSION: Diffuse soft tissue swelling but no radiographic evidence of osteomyelitis. Electronically Signed: Gunner Modi MD at 23:35 EDT Reading Location ID and State: [id number] / [employer] Tel , Service support , Charges/Coding Visit Charges Office Visits / Consults: [id number] OP Consult L4
--- NOTE | 2023-07-26 02:24 | EX.ED.DYSGE1 ---
HPI History of Present Illness Chief Complaint: Cellulitis Informant: patient and EMS Narrative Narrative: Patient is a 62-year-old female with past medical history of congestive heart failure hypertension diabetes and paroxysmal atrial fibrillation. She states that her legs have increased in size and redness over the past few days and with this there is also been increased pain. She denies any fevers or chills but states she has concern for potential infection and therefore comes in for evaluation [facility] Medical History Pericardial effusion with cardiac tamponade Wears glasses Wears dentures Substance abuse Alcohol use Rash Gout High cholesterol PVD (peripheral vascular disease) Easy bruising Seizures Dietary restriction Gastric reflux Injury of back Vapes nicotine containing substance Fall History of pain when walking History of edema Insomnia Major depression On home oxygen therapy Emphysema, unspecified Neuropathy Cardiology follow-up encounter History of ulceration DKA (diabetic ketoacidosis) Cardiac arrest Lichen sclerosus Macular degeneration Essential hypertension Decreased left ventricular function Paroxysmal atrial fibrillation Diverticulosis Migraine Iron deficiency anemia COPD (chronic obstructive pulmonary disease) CHF (congestive heart failure) Neuropathy Kidney failure Hypothyroid Schizoaffective disorder, bipolar type Emphysema lung Diabetes Heart attack Home Medications ?Medication ?Instructions ?Recorded ?Last Taken ?Type apixaban 5 mg tablet (Eliquis) 5 mg PO BID a. fib. 12/24/22 07/27/23 History atorvastatin 20 mg tablet 20 mg PO DAILY cholesterol 12/24/22 07/27/23 History empagliflozin 10 mg tablet 10 mg PO DAILY diabetes 12/24/22 07/27/23 History (Jardiance) gabapentin 300 mg capsule 300 mg PO 4X/DAY 12/25/22 07/27/23 History albuterol sulfate 90 mcg/actuation 1 inh inhalation PRN PRN shortness 12/31/22 Unknown History aerosol inhaler of breath or wheezing meloxicam 7.5 mg tablet 7.5 mg PO DAILY 01/01/23 07/27/23 History trazodone 100 mg tablet 100 mg PO QHS 01/01/23 07/26/23 History aripiprazole 20 mg tablet 20 mg PO QHS mental health 03/09/23 07/26/23 History pantoprazole 40 mg tablet,delayed 40 mg PO DAILY #30 tabs 03/09/23 07/27/23 Rx release budesonide-formoterol HFA 80 2 inh inhalation BID breathing 04/27/23 07/27/23 History mcg-4.5 mcg/actuation aerosol inhaler (Symbicort) fluoxetine 40 mg capsule 40 mg PO DAILY 04/27/23 07/27/23 History fluticasone propionate 50 1 spray intranasal DAILY PRN 04/27/23 Unknown History mcg/actuation nasal allergy symptoms spray,suspension valbenazine 40 mg capsule 40 mg PO DAILY 04/27/23 07/27/23 History (Ingrezza) cephalexin 500 mg capsule 500 mg PO Q6 #40 CAPSULES 07/23/23 07/27/23 Rx divalproex 500 mg tablet,extended 500 mg PO DAILY 07/25/23 07/27/23 History release 24 hr famotidine 20 mg tablet 20 mg PO DAILY 07/25/23 07/27/23 History hydrocodone-acetaminophen 5-325mg 1 tab PO BID PRN PRN pain 07/25/23 Unknown History 5mg-325mg insulin glargine 100 unit/mL (3 20 unit subcut DAILY 07/25/23 07/27/23 History mL) subcutaneous pen (Lantus Solostar U-100 Insulin) levothyroxine 100 mcg tablet 100 mcg PO DAILY 07/25/23 07/27/23 History oxybutynin chloride 5 mg 5 mg PO DAILY 07/25/23 07/27/23 History tablet,extended release 24 hr tirzepatide 2.5 mg/0.5 mL 2.5 mg subcut QWEEK 07/25/23 07/24/23 History subcutaneous pen injector (Joseph) furosemide 40 mg tablet (Lasix) 40 mg PO BID 10 days #20 tabs 07/26/23 07/27/23 Rx Allergy/AdvReac Type Severity Reaction Status Date / Time aspirin Allergy Mild Hives Verified 07/27/23 15:52 erythromycin base Allergy Mild Hives Verified 07/27/23 15:52 Penicillins Allergy Mild Hives Verified 07/27/23 15:52 polyethylene glycol 3350 Allergy Mild Nausea/Vom/ Verified 07/27/23 15:52 (From Miralax) Diarrhea tramadol Allergy Mild Hives Verified 07/27/23 15:52 tomato Allergy Food Verified 07/27/23 15:52 Allergy Family History Mother Heart disease Hypertension Cancer Father Brain aneurysm age 40 CVA (cerebral vascular accident) Cancer Brother Colon cancer Surgical History Hx of vein stripping Hx of toe surgery History of lithotripsy History of delivery History of bilateral cataract extraction History of cholecystectomy H/O: hysterectomy Social History Smoking Status: Current every day smoker tobacco type: cigarettes and e-cigarettes Tobacco: How many years used: 18 Electronic Cigarette Use: with nicotine second hand exposure: No alcohol intake: never substance use type: does not use caffeine: Yes ROS ROS ED Constitutional Constitutional ED: Denies chills or fever(s) Eyes Eyes: Denies change in vision ENT ENT ED: Denies sore throat Cardiovascular Cardiovascular: Denies chest pain Respiratory/Chest Respiratory/Chest: Reports cough; Denies dyspnea Gastrointestinal Gastrointestinal: Denies abdominal pain, diarrhea, nausea or vomiting Genitourinary Genitourinary ED: Denies dysuria Musculoskeletal Musculoskeletal: Reports myalgias Integumentary Reports rash Neurologic Neurologic: Reports weakness; Denies headache(s) Hematologic/Lymphatic Hematologic/Lymphatic: Reports easy bleeding and easy bruising EXAM Physical Exam Const Vital Signs: 07/25/23 22:38 07/25/23 22:40 07/25/23 23:00 Temperature 97.9 F 97.9 F Temperature Source Oral Oral Pulse Rate 75 75 Respiratory Rate 20 H 20 H Respiratory Effort Short of Breath Respiratory Pattern Normal Blood Pressure 127/70 H 127/70 H Blood Pressure Mean 89 89 Pulse Ox 95 95 Oxygen Delivery Method Room Air Room Air Oxygen Flow Rate (L/min) 07/25/23 23:40 07/26/23 00:00 07/26/23 00:38 Temperature 97.8 F 97.8 F Temperature Source Temporal Temporal Pulse Rate 89 66 67 Respiratory Rate 16 18 15 Respiratory Effort Respiratory Pattern Blood Pressure 119/50 L 106/51 L 95/52 L Blood Pressure Mean 73 69 66 Pulse Ox 96 96 97 Oxygen Delivery Method Nasal Cannula Nasal Cannula Nasal Cannula Oxygen Flow Rate (L/min) 2 2 2 07/26/23 01:00 07/26/23 02:00 Temperature 98.3 F 98.1 F Temperature Source Oral Oral Pulse Rate 67 79 Respiratory Rate 18 18 Respiratory Effort Respiratory Pattern Blood Pressure 99/59 L 103/52 L Blood Pressure Mean 72 69 Pulse Ox 98 96 Oxygen Delivery Method Nasal Cannula Nasal Cannula Oxygen Flow Rate (L/min) 2 2 Positive well nourished, well developed and obese General Appearance ED: well developed Nutritional Appearance: obese HEENT HEENT Narrative: No tongue or lip swelling no oral lesions no airway edema or compromise Eyes PERRL and EOMs intact bilaterally General Eye ED: Negative for pale conjunctiva or scleral icterus Neck supple and no JVD Neck Narrative: No nuchal rigidity or meningeal signs Resp normal respiratory effort Resp Narrative: Breath sounds are diminished throughout with faint rhonchi in the bilateral lower lobes but no nasal flaring or retractions tachypnea or accessory muscle use Cardio regular rate and regular rhythm GI normal to inspection, nondistended, normoactive bowel sounds, non-tender, non-distended and no masses GI Narrative: No voluntary guarding or rigidity or pulsatile mass No fluid wave noted Auscultation: normoactive bowel sounds Palpation: soft Extremity Extremity Narrative: There is +2-3 pitting edema to the bilateral lower extremities essentially from the ankle to 1 to 2 inches below the knee Patient has mild diffuse erythema that is circumferential with faint warmth that is equal bilaterally. No obvious abscess formation. No lymphangitic streaking Neuro oriented x3 and CN's II-XII intact bilaterally Sensorium / Orientation: alert Psych mental status grossly normal Skin Skin Narrative: Soft tissue changes of the bilateral lower legs as documented above MDM MDM MDM Narrative Medical decision making narrative: Patient presented to the ER with stable vitals and reported bilateral leg pain that she concern for cellulitis. Her legs are edematous and slightly erythematous but they are equal bilaterally. She is also on her reported blood thinner. Differential diagnosis is for potential DVT versus cellulitis versus abscess versus congestive heart failure. As the swelling and discoloration is equal bilaterally and she does have increased pitting edema this is most likely CHF. Compartments are soft and compressible going against compartment syndrome. Physical exam does not suggest abscess. She is reporting a blood thinner and my concern for DVT is low and there is no need for emergent venous duplex. As patient had concern for infection basic blood work was obtained. White count is normal at 6.6 there is no left shift and she does not have any type of elevation to her proximal LAD toning going against infectious process. X-rays also do not show any obvious findings to suggest osteomyelitis. As the patient was recently seen in the ER did have the patient evaluated by general medicine/hospitalist. They agree that as the findings are bilateral this is most likely CHF exacerbation and not infectious. As the patient does not have signs of septicemia and at this time she is not requiring increased oxygenation from her baseline there is no need for admission and she be advised to continue/increase her Lasix and is otherwise safe for discharge History & Record Review Discussion w/independent historian: Patient Lab Data Attestation: I reviewed the patient's lab results. Labs: Laboratory Results - last 24 hr 07/25/23 07/25/23 22:50 23:56 WBC 6.6 RBC 3.71 L Hgb 10.5 L Hct 34.2 L MCV 92.2 MCH 28.3 MCHC 30.7 L RDW Std Deviation 52.0 H RDW Coeff of Penny 15.6 H Plt Count 127 L MPV 9.8 Immature Gran % (Auto) 0.500 Neut % (Auto) 57.9 Lymph % (Auto) 26.7 [place] % (Auto) 10.1 H Eos % (Auto) 4.5 Baso % (Auto) 0.3 Absolute Neuts (auto) 3.8 Absolute Lymphs (auto) 1.77 Nucleated RBC % 0 Sodium 137 Potassium 4.1 Chloride 102 Carbon Dioxide 32.0 Anion Gap 3 L BUN 23 H Creatinine 1.76 H Estim Creat Clear Calc 38.59 Est GFR (MDRD) Af Amer 37 L Est GFR (MDRD) Non-Af 31 L BUN/Creatinine Ratio 13.1 Glucose 235 H Lactic Acid 1.3 Calcium 8.7 B-Natriuretic Peptide 26.5 Procalcitonin 0.07 Radiography Diagnostic Testing: Clinical Impression(s) from Imaging Studies Tibia/Fibula X-Ray 07/25/23 23:18 IMPRESSION: Diffuse soft tissue swelling but no radiographic evidence of osteomyelitis. Electronically Signed: Gunner Modi MD at 23:34 EDT , Tibia/Fibula X-Ray 07/25/23 23:18 IMPRESSION: Diffuse soft tissue swelling but no radiographic evidence of osteomyelitis. Electronically Signed: Gunner Modi MD at 23:35 EDT , X-ray of the bilateral tibia and fibula as interpreted by the emergency medicine physician reveals soft tissue swelling without evidence of fracture dislocation or osteomyelitis Discharge Plan Triage Chief Complaint: Cellulitis ED Provider: Erich Fleming Dx/Rx/DC Orders Clinical Impression: Peripheral edema, Congestive heart failure, COPD (chronic obstructive pulmonary disease), Diabetes, Essential hypertension Instructions: Heart Failure: Tracking Your Weight, ED Peripheral Edema, Bilateral Prescriptions: New furosemide [Lasix] 40 mg tablet 40 mg PO BID 10 Days Qty: 20 0RF No Action atorvastatin 20 mg tablet 20 mg PO DAILY Eliquis 5 mg tablet 5 mg PO BID Jardiance 10 mg tablet 10 mg PO DAILY gabapentin 300 mg capsule 300 mg PO 4X/DAY fluoxetine 40 mg capsule 40 mg PO DAILY fluticasone propionate 50 mcg/actuation spray,suspension 1 spray intranasal DAILY PRN (Reason: allergy symptoms) Patient Comments: instill 2 sprays in each nostril daily budesonide-formoterol [Symbicort] 80-4.5 mcg/actuation HFA aerosol inhaler 2 inh inhalation BID Patient Comments: INHALE TWO PUFFS BY MOUTH TWICE DAILY. RINSE MOUTH AFTER USE Ingrezza 40 mg capsule 40 mg PO DAILY albuterol sulfate 90 mcg/actuation HFA aerosol inhaler 1 inh INHALATION PRN PRN (Reason: shortness of breath or wheezing) trazodone 100 mg tablet 100 mg PO QHS Patient Comments: TAKE 1 TABLET BY MOUTH EVERY DAY AT NIGHT meloxicam 7.5 mg tablet 7.5 mg PO DAILY Patient Comments: TAKE 1 TABLET BY MOUTH EVERY DAY FOR 30DAYS ON A FULL STOMACH aripiprazole 20 mg tablet 20 mg PO QHS Patient Comments: TAKE ONE TABLET BY MOUTH DAILY AT 9AM pantoprazole 40 mg tablet,delayed release (DR/EC) 40 mg PO DAILY Qty: 30 0RF cephalexin 500 mg capsule 500 mg PO Q6 Qty: 40 0RF hydrocodone-acetaminophen 5-325 mg tablet 1 tab PO BID PRN PRN (Reason: pain) famotidine 20 mg tablet 20 mg PO DAILY divalproex 500 mg tablet extended release 24 hr 500 mg PO DAILY insulin glargine [Lantus Solostar U-100 Insulin] 100 unit/mL (3 mL) insulin pen 20 unit subcut DAILY levothyroxine 100 mcg tablet 100 mcg PO DAILY oxybutynin chloride 5 mg tablet extended release 24hr 5 mg PO DAILY Mounjaro 2.5 mg/0.5 mL pen injector 2.5 mg subcut QWEEK Primary Care Provider: Eric Marion Referrals: Eric Marion, [facility] [Primary Care Provider] - Activity Restrictions/Additional Instructions: Please begin taking Lasix 40 mg twice a day as directed to help pull more fluid off of your extremities which is the main cause for your symptoms. Follow-up with your family doctor for repeat evaluation and return to the ER should you have any further concerns Print Language: Eritrean Disposition Disposition: Home, Self Care Discharge Date/Time: 07/26/23 02:45
[2023-07-26 02:30] VITALS: BP 119/57; PULSE 68; RESP 16; TEMP 36.8; O2SAT 100
[2023-07-26] MEDS: Furosemide 20 MG/2 ML VIAL IV (02:32)
== END 2023-07-26 02:45 | disposition home or self-care (01) ==
PROVIDERS: Emergency Provider Emergency Medicine; PCP Nurse Practitioner Family; Visit Provider Emergency Medicine
DX: R60.0 Localized edema (principal); I11.0 Hypertensive heart disease with heart failure; I50.9 Heart failure, unspecified; J43.9 Emphysema, unspecified; I48.0 Paroxysmal atrial fibrillation; E11.40 Type 2 diabetes mellitus with diabetic neuropathy, unspecified; Z79.4 Long term (current) use of insulin; Z79.51 Long term (current) use of inhaled steroids; Z79.01 Long term (current) use of anticoagulants; F17.210 Nicotine dependence, cigarettes, uncomplicated; L03.90 Cellulitis, unspecified; K21.9 Gastro-esophageal reflux disease without esophagitis; Z79.899 Other long term (current) drug therapy; Z79.890 Hormone replacement therapy; E03.9 Hypothyroidism, unspecified; Z79.85 Long-term (current) use of injectable non-insulin antidiabetic drugs; E78.00 Pure hypercholesterolemia, unspecified; F17.290 Nicotine dependence, other tobacco product, uncomplicated; E66.9 Obesity, unspecified
CPT/HCPCS: 96365; 96375; 99285; 73590; 80048; 83605; 83880; 84145; 85025; 87040; J7030; J7050; A4216; J1940; J2405

== ENCOUNTER 2023-07-27 15:34 | Inpatient (IN) | payer MEDICARE, MEDICAID, SELFPAY ==
[2023-07-27] VITALS (19 sets, daily range): BP systolic 83–124; BP diastolic 42–82; PULSE 52–79; RESP 8–20; TEMP 36.3–36.7; O2SAT 92–96; BMI 42.6; BMI 42.5
--- NOTE | 2023-07-27 15:35 | ED.RN ---
taken to eye wash station
--- NOTE | 2023-07-27 16:14 | EX.ED.DYSGE1 ---
HPI History of Present Illness Chief Complaint: Edema [facility] Medical History Pericardial effusion with cardiac tamponade Wears glasses Wears dentures Substance abuse Alcohol use Rash Gout High cholesterol PVD (peripheral vascular disease) Easy bruising Seizures Dietary restriction Gastric reflux Injury of back Vapes nicotine containing substance Fall History of pain when walking History of edema Insomnia Major depression On home oxygen therapy Emphysema, unspecified Neuropathy Cardiology follow-up encounter History of ulceration DKA (diabetic ketoacidosis) Cardiac arrest Lichen sclerosus Macular degeneration Essential hypertension Decreased left ventricular function Paroxysmal atrial fibrillation Diverticulosis Migraine Iron deficiency anemia COPD (chronic obstructive pulmonary disease) CHF (congestive heart failure) Neuropathy Kidney failure Hypothyroid Schizoaffective disorder, bipolar type Emphysema lung Diabetes Heart attack Home Medications ?Medication ?Instructions ?Recorded ?Last Taken ?Type apixaban 5 mg tablet (Eliquis) 5 mg PO BID a. fib. 12/24/22 07/27/23 History atorvastatin 20 mg tablet 20 mg PO DAILY cholesterol 12/24/22 07/27/23 History empagliflozin 10 mg tablet 10 mg PO DAILY diabetes 12/24/22 07/27/23 History (Jardiance) gabapentin 300 mg capsule 300 mg PO 4X/DAY 12/25/22 07/27/23 History albuterol sulfate 90 mcg/actuation 1 inh inhalation PRN PRN shortness 12/31/22 Unknown History aerosol inhaler of breath or wheezing meloxicam 7.5 mg tablet 7.5 mg PO DAILY 01/01/23 07/27/23 History trazodone 100 mg tablet 100 mg PO QHS 01/01/23 07/26/23 History aripiprazole 20 mg tablet 20 mg PO QHS mental health 03/09/23 07/26/23 History pantoprazole 40 mg tablet,delayed 40 mg PO DAILY #30 tabs 03/09/23 07/27/23 Rx release budesonide-formoterol HFA 80 2 inh inhalation BID breathing 04/27/23 07/27/23 History mcg-4.5 mcg/actuation aerosol inhaler (Symbicort) fluoxetine 40 mg capsule 40 mg PO DAILY 04/27/23 07/27/23 History fluticasone propionate 50 1 spray intranasal DAILY PRN 04/27/23 Unknown History mcg/actuation nasal allergy symptoms spray,suspension valbenazine 40 mg capsule 40 mg PO DAILY 04/27/23 07/27/23 History (Ingrezza) cephalexin 500 mg capsule 500 mg PO Q6 #40 CAPSULES 07/23/23 07/27/23 Rx divalproex 500 mg tablet,extended 500 mg PO DAILY 07/25/23 07/27/23 History release 24 hr famotidine 20 mg tablet 20 mg PO DAILY 07/25/23 07/27/23 History hydrocodone-acetaminophen 5-325mg 1 tab PO BID PRN PRN pain 07/25/23 Unknown History 5mg-325mg insulin glargine 100 unit/mL (3 20 unit subcut DAILY 07/25/23 07/27/23 History mL) subcutaneous pen (Lantus Solostar U-100 Insulin) levothyroxine 100 mcg tablet 100 mcg PO DAILY 07/25/23 07/27/23 History oxybutynin chloride 5 mg 5 mg PO DAILY 07/25/23 07/27/23 History tablet,extended release 24 hr tirzepatide 2.5 mg/0.5 mL 2.5 mg subcut QWEEK 07/25/23 07/24/23 History subcutaneous pen injector (Mounjaro) furosemide 40 mg tablet (Lasix) 40 mg PO BID 10 days #20 tabs 07/26/23 07/27/23 Rx Allergy/AdvReac Type Severity Reaction Status Date / Time aspirin Allergy Mild Hives Verified 07/27/23 15:52 erythromycin base Allergy Mild Hives Verified 07/27/23 15:52 Penicillins Allergy Mild Hives Verified 07/27/23 15:52 polyethylene glycol 3350 Allergy Mild Nausea/Vom/ Verified 07/27/23 15:52 (From Miralax) Diarrhea tramadol Allergy Mild Hives Verified 07/27/23 15:52 tomato Allergy Food Verified 07/27/23 15:52 Allergy Family History Mother Heart disease Hypertension Cancer Father Brain aneurysm age 40 CVA (cerebral vascular accident) Cancer Brother Colon cancer Surgical History Hx of vein stripping Hx of toe surgery History of lithotripsy History of delivery History of bilateral cataract extraction History of cholecystectomy H/O: hysterectomy Social History Smoking Status: Current every day smoker tobacco type: cigarettes and e-cigarettes Tobacco: How many years used: 18 Electronic Cigarette Use: with nicotine second hand exposure: No alcohol intake: never substance use type: does not use caffeine: Yes EXAM Physical Exam Const Vital Signs: 07/27/23 15:36 07/27/23 15:40 07/27/23 15:40 Temperature 97.4 F L Temperature Source Temporal Pulse Rate 74 Respiratory Rate 20 H Respiratory Effort Normal Non-Labored Respiratory Pattern Normal Blood Pressure 83/42 L Blood Pressure Mean 55 Pulse Ox 92 94 Oxygen Delivery Method Room Air Room Air 07/27/23 15:40 07/27/23 16:17 07/27/23 16:35 Temperature Temperature Source Pulse Rate 60 Respiratory Rate 18 12 Respiratory Effort Respiratory Pattern Blood Pressure 113/82 H Blood Pressure Mean 92 Pulse Ox 94 94 94 Oxygen Delivery Method Room Air Room Air Room Air 07/27/23 17:00 07/27/23 18:00 07/27/23 19:00 Temperature Temperature Source Pulse Rate 70 78 65 Respiratory Rate 14 16 14 Respiratory Effort Respiratory Pattern Blood Pressure 98/63 95/60 108/68 Blood Pressure Mean 74 71 81 Pulse Ox 95 94 96 Oxygen Delivery Method Room Air Room Air Room Air 07/27/23 20:00 07/27/23 20:06 07/27/23 20:23 Temperature 98.0 F Temperature Source Pulse Rate 62 62 61 Respiratory Rate 18 16 12 Respiratory Effort Respiratory Pattern Blood Pressure 100/55 L 100/55 L Blood Pressure Mean 70 70 Pulse Ox 93 93 92 Oxygen Delivery Method Room Air 07/27/23 20:30 07/27/23 20:45 07/27/23 21:00 Temperature Temperature Source Pulse Rate 64 54 L 52 L Respiratory Rate 11 L 9 L 8 L Respiratory Effort Respiratory Pattern Blood Pressure 104/63 108/59 L 97/54 L Blood Pressure Mean 76 74 68 Pulse Ox 95 94 93 Oxygen Delivery Method 07/27/23 21:15 Temperature Temperature Source Pulse Rate 56 L Respiratory Rate 9 L Respiratory Effort Respiratory Pattern Blood Pressure 99/57 L Blood Pressure Mean 70 Pulse Ox 95 Oxygen Delivery Method MDM MDM MDM Narrative Medical decision making narrative: HISTORY OF PRESENT ILLNESS: 62-year-old female presents with bilateral lower extremity swelling and shortness of breath. She notes she was recently discharged [facility] for the same. Notes she is was started on clindamycin and is currently compliant with therapy REVIEW OF SYSTEMS: Pertinent positives: Shortness of breath, lower extremity edema Pertinent negatives: Vomiting, fever PHYSICAL EXAM: Nursing triage notes reviewed, Vital signs reviewed Constitutional: please see mdm HENT: MMM Eyes: Pupils equal round and reactive to light, Extraocular muscles intact Neck: No stridor, no JVD, full neck ROM Lungs: Clear to auscultation, No wheezing or rales. No increased work of breathing, no conversational dyspnea, no accessory muscle use, no nasal flaring. No respiratory distress noted Heart: Regular rate and rhythm, No murmurs, No rubs and No gallops, 2+ distal pulses (radial, femoral, posterior tibial) in all extremities Abdomen: Soft, there is no tenderness, rigidity, rebound or guarding, no obvious peritoneal signs, no palpable pulsatile abdominal masses, no auscultated abdominal bruit : No CVAT Extremities 2+ pitting edema bilateral lower extremity Neuro: No focal neurological deficits, cranial nerves II through XII intact, 5/5 strength in all extremities. Intact sensation to light touch in all extremities, 2+ reflexes bilateral patella tendons. Normal gait. No ataxia. Skin: Confluent erythema noted to bilateral lower extremities MEDICAL DECISION MAKING: Chief Complaint: Shortness of breath, lower extremity edema External records reviewed: Seen by hospitalist yesterday who felt she is not in overt CHF. Gave IV Lasix and discharged. Labs reviewed yesterday shows no leukocytosis, mild anemia, baseline CKD no significant electrolyte abnormalities, lactate was negative, chest x-ray was negative. Troponin and BNP were within normal limit. She was discharged with Keflex for 10 days Factors affecting care: CHF, personal afibrillation, schizophrenia, bipolar disorder, COPD Social determinants of health: History of mental health disorder History obtained from others: The patient's sister Consults: Internal medicine MDM Narrative: Patient was initially hypotensive, tachypneic otherwise afebrile saturating 96% on room air I considered the following differential diagnosis: Cellulitis, DVT, CHF exacerbation ALL IMAGES (IF OBTAINED) HAVE BEEN PERSONALLY REVIEWED AND INTERPRETED BY MYSELF. EKG with normal sinus rhythm, normal axis, normal intervals, no STEMI I have personally reviewed the patient's chest x-ray. Chest x-ray is unremarkable for pulmonary edema, pneumothorax, pneumonia or focal cardiopulmonary abnormality. CBC with no leukocytosis to suggest systemic inflammation, there is mild anemia, no thrombocytopenia BMP without significant Abimbola normalities there is noted CHELSEY on CKD, BNP remains within normal limits High-sensitivity troponin is negative, no evidence of myocardial ischemia Bilateral DVT studies are negative The synthesis the patient history, physical exam, labs images suggest bilateral cellulitis while the patient did not finish her course of oral therapy, her symptoms are worsening and she displays signs of renal insufficiency I am concerned she may not do well at home. Will Start Her on IV Vancomycin and admit her for IV therapy. The patient and/or family, caregivers express understanding. The patient and/or family, caregivers agrees with the plan. Shared decision making: I will have a discussion with the patient and or visitors regarding risk/benefits of further testing or admission. They will be made aware of of the risk/benefits inherent in this decision they will be given the opportunity to voice understanding. Total critical care time today provided was at least 0 minutes. This excludes separately billable procedures. Critical care time (if documented) is secondary to the patient having high probability of clinically significant/life threatening deterioration in the patient's condition which required my urgent intervention. Impression: 1. Bilateral lower extremity cellulitis 2. Renal insufficiency 3. History of type 2 diabetes Dispo: admit This note was generated with [employer] dictation software. It may contain incorrect words, spelling, and punctuation that were not noted in review of the chart prior to signing. Lab Data Labs: Laboratory Results - last 24 hr 07/27/23 07/27/23 15:00 16:00 WBC 5.9 RBC 3.74 L Hgb 10.6 L Hct 34.3 L MCV 91.7 MCH 28.3 MCHC 30.9 L RDW Std Deviation 51.8 H RDW Coeff of Penny 15.6 H Plt Count 128 L MPV 9.8 Immature Gran % (Auto) 0.200 Neut % (Auto) 62.6 Lymph % (Auto) 23.4 Finney % (Auto) 9.8 Eos % (Auto) 3.7 Baso % (Auto) 0.3 Absolute Neuts (auto) 3.7 Absolute Lymphs (auto) 1.38 Nucleated RBC % 0 Sodium 138 Potassium 4.1 Chloride 101 Carbon Dioxide 28.0 Anion Gap 9 BUN 26 H Creatinine 2.24 H Estim Creat Clear Calc 30.48 Est GFR (MDRD) Af Amer 28 L Est GFR (MDRD) Non-Af 23 L BUN/Creatinine Ratio 11.6 Glucose 180 H Calcium 8.6 Troponin I High Sens 7 B-Natriuretic Peptide 79.3 Radiography Diagnostic Testing: Clinical Impression(s) from Imaging Studies Chest X-Ray 07/27/23 16:35 IMPRESSION: No acute findings in the chest. Electronically Signed: Jerardo Rivera MD at 16:55 EDT , Venous Duplex 07/27/23 17:59 IMPRESSION: Normal bilateral lower extremity duplex venous ultrasound. Electronically Signed: Jerardo Rivera MD at 18:48 EDT , Discharge Plan Disposition Disposition: Acute Care Hospital [facility] Discharge Date/Time: 07/27/23 23:12
--- NOTE | 2023-07-27 16:17 | EKG12_ITS ---
Test Reason : Blood Pressure : / mmHG Vent. Rate : 061 BPM Atrial Rate : 061 BPM P-R Int : 150 ms QRS Dur : 078 ms QT Int : 418 ms P-R-T Axes : -14 023 017 degrees QTc Int : 420 ms Normal sinus rhythm Normal ECG Confirmed by Nicho Mcgraw ([id number]), film editor ADRI ORTIZ ([id number]) on 07/28/2023 1:06:21 PM Referred By: Elliot Zuniga Confirmed By:Nicho Mcgraw
[2023-07-27 16:23] LABS: Absolute Lymphocyte Count 1.38 X10^3/uL (0.83-4.51); Absolute Neutrophil Count 3.7 X10^3/uL (2.0-7.7); Basophil# 0.02 X10^3/uL; Basophil% 0.3 % (0-1); Eosinophil# 0.22 X10^3/uL; Eosinophils% 3.7 % (0-5); Hematocrit 34.3 % (37-47); Hemoglobin 10.6 g/dL (12.0-15.0); Lymphocyte # 1.38 X10^3/ul (0.83-4.51); Lymphocyte % 23.4 % (19-41); Mean Corp Hgb Conc 30.9 g/dL (32-36); Mean Corpuscular Hgb 28.3 pg (27.0-32.0); Mean Corpuscular Volume 91.7 fL (81-99); Mean Platelet Vol. 9.8 fl (6.2-12.0); Monocyte# 0.58 X10^3/uL; Monocyte% 9.8 % (0-10); NRBC Flagged by Analyzer 0 % (0-5); Neutrophil % 62.6 % (47-70); Platelet Count 128 K/mm3 (150-450); RBC Distribution Width CV 15.6 % (11.6-14.6); RBC Distribution Width SD 51.8 fl (35.1-43.9); Red Blood Count 3.74 M/mm3 (4.2-5.4); White Blood Count 5.9 K/mm3 (4.4-11.0)
[2023-07-27 16:35] LABS: Anion Gap 9 (5-15); BUN 26 mg/dL (7-18); BUN/Creat Ratio 11.6 RATIO (10-20); Calcium,Total 8.6 mg/dL (8.5-10.1); Chloride 101 mmol/L (98-107); Creatinine, Serum 2.24 mg/dL (0.55-1.02); EST Glomerular Filtration Rate 23 mL/min (>60); Est Glom Filt Rate - Afr Amer 28 mL/min (>60); Estimated Creatinine Clearance 30.48 ml/min; Glucose 180 mg/dL (74-106); Potassium 4.1 mmol/L (3.5-5.1); Sodium Level 138 mmol/L (136-145)
--- NOTE | 2023-07-27 16:35 | RAD_ITS ---
EXAM: XR CHEST, 1 VIEW CLINICAL INDICATION: SOB TECHNIQUE: Frontal view of the chest. COMPARISON: 07/23/2023 FINDINGS: LUNGS AND PLEURAL SPACES: Unremarkable. No consolidation or edema. No pneumothorax. No effusion. HEART: Unremarkable. Cardiac silhouette not enlarged. MEDIASTINUM: Central airways and mediastinal contour are unremarkable. BONES/JOINTS: Unremarkable. No acute fracture. SOFT TISSUES: Unremarkable. TUBES, LINES AND DEVICES: Right-sided Port-A-Cath in stable position. RAD/Chest 1 View (Portable) IMPRESSION: No acute findings in the chest. Electronically Signed: Jerardo Rivera MD at 16:55 EDT ,
[2023-07-27 16:50] LABS: Troponin-I HS 7 pg/mL (3.0-54.0)
[2023-07-27 17:08] LABS: BNP,B-Type NATRIURETIC PEPTIDE 79.3 pg/mL (0-100)
--- NOTE | 2023-07-27 17:59 | US_ITS ---
EXAM: US DUPLEX BILATERAL LOWER EXTREMITIES VEINS CLINICAL INDICATION: BILATERAL LEG SWELLING TECHNIQUE: Real-time duplex ultrasound scan of the bilateral lower extremity veins integrating B-mode two-dimensional vascular structure, Doppler spectral analysis, color flow Doppler imaging and compression. COMPARISON: No relevant prior studies available. FINDINGS: RIGHT DEEP VEINS: Unremarkable. No DVT in the right common femoral, femoral, proximal deep femoral or popliteal veins. The veins demonstrate normal color flow, are normally compressible, with normal phasic flow and/or augmentation response. RIGHT SUPERFICIAL VEINS: Unremarkable. No thrombus in the visualized right great saphenous vein. LEFT DEEP VEINS: Unremarkable. No DVT in the left common femoral, femoral, proximal deep femoral or popliteal veins. The veins demonstrate normal color flow, are normally compressible, with normal phasic flow and/or augmentation response. LEFT SUPERFICIAL VEINS: Unremarkable. No thrombus in the visualized left great saphenous vein. SOFT TISSUES: No acute findings. No popliteal cyst. US/Venous Duplex Imag/Juan Carlos Extrem IMPRESSION: Normal bilateral lower extremity duplex venous ultrasound. Electronically Signed: Jerardo Rivera MD at 18:48 EDT ,
[2023-07-27] MEDS: Vancomycin HCl 1,750 MG in 0.9% Normal Saline (500mL Bag) 500 ML 250 MG IV (18:37)
[2023-07-27] MEDS: Morphine 2 MG/ML Syringe IV (18:52)
--- NOTE | 2023-07-27 20:21 | PCM.HP.STD ---
[facility] General Date of Admission: 07/27/23 Date of Service: 07/27/23 Chief Complaint: Bilateral lower extremity swelling and shortness of breath. [facility] Narrative JADE SWANSON, is a 62 F with a past medical history of essential hypertension, hyperlipidemia, hypothyroidism, morbid obesity; BMI 42.6 this admission, diabetes mellitus type 2; of unknown control with history of DKA, diabetic neuropathy, CAD; status post [place], history of CHF, history of PAF; on Eliquis, history of pericardial effusion; with cardiac tamponade, history of cardiac arrest; status post successful resuscitation with ACLS, history of secondary pulmonary hypertension, history of tobacco abuse; subsequent COPD, chronic hypoxic respiratory failure on as needed 4 L nasal cannula, history of substance abuse with opioids, methamphetamine and MDMA, CKD; stage III (with baseline creatinine of approximately 1.9 mg/dL), KE, PVD; with history of bilateral lower extremity vein stripping, history of seizure disorder; on divalproex, macular degeneration, schizoaffective disorder; bipolar type, chronic lower extremity edema, history of lichen sclerosis, history of colonic diverticulosis, history of migraine headaches, IBS, GERD, gout, osteoarthritis with previous bouts of LE cellulitis and recent admission here from June 24, 2023 to June 27, 2023 for treatment of chest pain, hypotension and acute toxic and metabolic encephalopathy with urine drug screen positive for opioids as well as MDMA with acute hypercapnic and hypoxic respiratory failure and acute exacerbation of CHF who presents to [facility] ER complaining of bilateral lower extremity swelling and shortness of breath. Ms. Salvador reports her symptoms began approximately 1 week prior to admission with progressively worsening bilateral lower extremity redness, swelling and pain with associated shortness of breath. She was diagnosed with cellulitis of her lower extremities as an outpatient and started on oral Keflex 2 days ago and she claims that she has been compliant with her therapy but her symptoms have not improved. She denies related fever, chills, nausea, vomiting, chest pain, palpitations or diaphoresis. In the ER she was diagnosed with bilateral lower extremity cellulitis that failed treatment with outpatient antibiotics with clindamycin with 2+ bilateral lower extremity edema and a chest x-ray negative for acute pathologic changes and a normal BNP of 79.3 pg/mL present on admission along with a Doppler of the bilateral lower extremities negative for DVT and she was then admitted to the general medical floor for ongoing care for state that is expected to extend beyond 2 midnights. [facility] Medical History Pericardial effusion with cardiac tamponade Wears glasses Wears dentures Substance abuse Alcohol use Rash Gout High cholesterol PVD (peripheral vascular disease) Easy bruising Seizures Dietary restriction Gastric reflux Injury of back Vapes nicotine containing substance Fall History of pain when walking History of edema Insomnia Major depression On home oxygen therapy Emphysema, unspecified Neuropathy Cardiology follow-up encounter History of ulceration DKA (diabetic ketoacidosis) Cardiac arrest Lichen sclerosus Macular degeneration Essential hypertension Decreased left ventricular function Paroxysmal atrial fibrillation Diverticulosis Migraine Iron deficiency anemia COPD (chronic obstructive pulmonary disease) CHF (congestive heart failure) Neuropathy Kidney failure Hypothyroid Schizoaffective disorder, bipolar type Emphysema lung Diabetes Heart attack Home Medications ?Medication ?Instructions ?Recorded ?Last Taken ?Type apixaban 5 mg tablet (Eliquis) 5 mg PO BID a. fib. 12/24/22 07/27/23 History atorvastatin 20 mg tablet 20 mg PO DAILY cholesterol 12/24/22 07/27/23 History empagliflozin 10 mg tablet 10 mg PO DAILY diabetes 12/24/22 07/27/23 History (Jardiance) gabapentin 300 mg capsule 300 mg PO 4X/DAY 12/25/22 07/27/23 History albuterol sulfate 90 mcg/actuation 1 inh inhalation PRN PRN shortness 12/31/22 Unknown History aerosol inhaler of breath or wheezing meloxicam 7.5 mg tablet 7.5 mg PO DAILY 01/01/23 07/27/23 History trazodone 100 mg tablet 100 mg PO QHS 01/01/23 07/26/23 History aripiprazole 20 mg tablet 20 mg PO QHS mental health 03/09/23 07/26/23 History pantoprazole 40 mg tablet,delayed 40 mg PO DAILY #30 tabs 03/09/23 07/27/23 Rx release budesonide-formoterol HFA 80 2 inh inhalation BID breathing 04/27/23 07/27/23 History mcg-4.5 mcg/actuation aerosol inhaler (Symbicort) fluoxetine 40 mg capsule 40 mg PO DAILY 04/27/23 07/27/23 History fluticasone propionate 50 1 spray intranasal DAILY PRN 04/27/23 Unknown History mcg/actuation nasal allergy symptoms spray,suspension valbenazine 40 mg capsule 40 mg PO DAILY 04/27/23 07/27/23 History (Ingrezza) cephalexin 500 mg capsule 500 mg PO Q6 #40 CAPSULES 07/23/23 07/27/23 Rx divalproex 500 mg tablet,extended 500 mg PO DAILY 07/25/23 07/27/23 History release 24 hr famotidine 20 mg tablet 20 mg PO DAILY 07/25/23 07/27/23 History hydrocodone-acetaminophen 5-325mg 1 tab PO BID PRN PRN pain 07/25/23 Unknown History 5mg-325mg insulin glargine 100 unit/mL (3 20 unit subcut DAILY 07/25/23 07/27/23 History mL) subcutaneous pen (Lantus Solostar U-100 Insulin) levothyroxine 100 mcg tablet 100 mcg PO DAILY 07/25/23 07/27/23 History oxybutynin chloride 5 mg 5 mg PO DAILY 07/25/23 07/27/23 History tablet,extended release 24 hr tirzepatide 2.5 mg/0.5 mL 2.5 mg subcut QWEEK 07/25/23 07/24/23 History subcutaneous pen injector (Mounjaro) furosemide 40 mg tablet (Lasix) 40 mg PO BID 10 days #20 tabs 07/26/23 07/27/23 Rx Allergy/AdvReac Type Severity Reaction Status Date / Time aspirin Allergy Mild Hives Verified 07/27/23 15:52 erythromycin base Allergy Mild Hives Verified 07/27/23 15:52 Penicillins Allergy Mild Hives Verified 07/27/23 15:52 polyethylene glycol 3350 Allergy Mild Nausea/Vom/ Verified 07/27/23 15:52 (From Miralax) Diarrhea tramadol Allergy Mild Hives Verified 07/27/23 15:52 tomato Allergy Food Verified 07/27/23 15:52 Allergy Family History Mother Heart disease Hypertension Cancer Father Brain aneurysm age 40 CVA (cerebral vascular accident) Cancer Brother Colon cancer Surgical History Hx of vein stripping Hx of toe surgery History of lithotripsy History of delivery History of bilateral cataract extraction History of cholecystectomy H/O: hysterectomy Social History Smoking Status: Current every day smoker tobacco type: cigarettes and e-cigarettes Tobacco: How many years used: 18 Electronic Cigarette Use: with nicotine second hand exposure: No alcohol intake: never substance use type: does not use caffeine: Yes ROS ROS Narrative Review of systems: General: Patient denies fever or chills HENT: Denies headache, denies stuffy nose, denies sore throat EYES: Denies changes in vision or discharge from eyes. Resp: Patient admits to shortness of breath with exertion. Cardiac: Denies chest pain, palpitations or heart racing. GI: Denies abdominal pain, denies changes in bowel, had some nausea but denies vomiting. : Denies changes in urination Extremity: Patient has 2+ bilateral lower extremity edema in the setting of known chronic lower extremity edema which is slightly worse than usual. Musculoskeletal: Feels somewhat generally weak and unwell but denies arthralgias or myalgias. Neuro: Patient denies headache, paresthesias or focal neurologic weakness. Heme: Denies any bleeding or bruising Skin: Denies rashes Psychiatric: No complaints voiced related to uncontrolled depression or anxiety. Endocrine: No polyuria, polydipsia or polyphagia. The rest of the 14 point ROS was negative except for positives in HPI. Vital Signs Vital Signs Vital Signs: 07/27/23 15:36 07/27/23 15:40 07/27/23 15:40 Temperature 97.4 F L Temperature Source Temporal Pulse Rate 74 Respiratory Rate 20 H Respiratory Effort Normal Non-Labored Respiratory Pattern Normal Blood Pressure 83/42 L Blood Pressure Mean 55 Pulse Ox 92 94 Oxygen Delivery Method Room Air Room Air 07/27/23 15:40 07/27/23 16:17 07/27/23 16:35 Temperature Temperature Source Pulse Rate 60 Respiratory Rate 18 12 Respiratory Effort Respiratory Pattern Blood Pressure 113/82 H Blood Pressure Mean 92 Pulse Ox 94 94 94 Oxygen Delivery Method Room Air Room Air Room Air 07/27/23 17:00 07/27/23 18:00 07/27/23 19:00 Temperature Temperature Source Pulse Rate 70 78 65 Respiratory Rate 14 16 14 Respiratory Effort Respiratory Pattern Blood Pressure 98/63 95/60 108/68 Blood Pressure Mean 74 71 81 Pulse Ox 95 94 96 Oxygen Delivery Method Room Air Room Air Room Air 07/27/23 20:00 07/27/23 20:06 Temperature 98.0 F Temperature Source Pulse Rate 62 62 Respiratory Rate 18 16 Respiratory Effort Respiratory Pattern Blood Pressure 100/55 L 100/55 L Blood Pressure Mean 70 70 Pulse Ox 93 93 Oxygen Delivery Method Room Air Weight Weight: 240 lb 11.916 oz Body Mass Index (BMI) 42.6 Physical Exam Const alert, oriented x3 and no apparent distress Constitutional Narrative: Patient is morbidly obese and appears chronically ill. General Appearance: cooperative HEENT normocephalic, head/scalp atraumatic, hearing grossly normal bilaterally and moist oral mucous membranes Eyes PERRL and EOMs intact bilaterally Neck no lymphadenopathy and supple Resp normal respiratory effort, no retractions, no use of accessory muscles and clear to auscultation bilaterally Cardio regular rate and regular rhythm GI normal to inspection, nondistended, normoactive bowel sounds, soft to palpation, non-tender and non-distended GI Narrative: Morbidly obese. Extremity Extremity Narrative: 2+ bilateral lower extremity pitting edema. Skin Skin Narrative: Patient has confluent erythema noted to her bilateral lower extremities. Neuro oriented x3, CN's II-XII intact bilaterally, moves all extremities and no focal motor deficits Sensorium / Orientation: awake, alert, oriented to person, oriented to place and oriented to time Speech: speech normal Motor Exam: strength 5/5 throughout Psych affect normal Results Medical Records Data Attestation: I reviewed the patient's medical records Lab / Micro Data Attestation: I reviewed the patient's lab results. 07/27/23 16:00 07/27/23 16:00 Labs: Laboratory Results - last 24 hr 07/27/23 15:00: B-Natriuretic Peptide 79.3 07/27/23 16:00: WBC 5.9, RBC 3.74 L, Hgb 10.6 L, Hct 34.3 L, MCV 91.7, MCH 28.3, MCHC 30.9 L, RDW Std Deviation 51.8 H, RDW Coeff of Penny 15.6 H, Plt Count 128 L, MPV 9.8, Immature Gran % (Auto) 0.200, Neut % (Auto) 62.6, Lymph % (Auto) 23.4, [place] % (Auto) 9.8, Eos % (Auto) 3.7, Baso % (Auto) 0.3, Absolute Neuts (auto) 3.7, Absolute Lymphs (auto) 1.38, Nucleated RBC % 0, Sodium 138, Potassium 4.1, Chloride 101, Carbon Dioxide 28.0, Anion Gap 9, BUN 26 H, Creatinine 2.24 H, Estim Creat Clear Calc 30.48, Est GFR (MDRD) Af Amer 28 L, Est GFR (MDRD) Non-Af 23 L, BUN/Creatinine Ratio 11.6, Glucose 180 H, Calcium 8.6, Troponin I High Sens 7 Imaging Radiology Impression Chest X-Ray 07/27/23 16:35 IMPRESSION: No acute findings in the chest. Electronically Signed: Jerardo Rivera MD at 16:55 EDT , Venous Duplex 07/27/23 17:59 IMPRESSION: Normal bilateral lower extremity duplex venous ultrasound. Electronically Signed: Jerardo Rivera MD at 18:48 EDT , Assessment & Plan Assessment/Plan (1) Cellulitis of both lower extremities: (2) Peripheral edema: (3) Morbid obesity with BMI of 40.0-44.9, adult: (4) History of diabetes mellitus, type II: (5) History of CHF (congestive heart failure): (6) History of tobacco use: PLAN: Plan 1. Bilateral lower extremity cellulitis that failed treatment with outpatient antibiotics with Keflex with 2+ bilateral lower extremity edema with a history of PVD; with history of bilateral lower extremity vein stripping x 3 and a chest x-ray negative for acute pathologic changes and a normal BNP of 79.3 pg/mL present on admission along with a Doppler of the bilateral lower extremities negative for DVT - Admit to general medical floor on contact isolation for presumed MRSA. Continue IV vancomycin began in the ER and add IV aztreonam (with patient having listed allergy to penicillin) and await culture and sensitivity data. Check swab for MRSA. Give Tylenol as needed for [id number] (level 1-5 out of 10) pain or fever. Continue hydrocodone-acetaminophen 1 tab p.o. twice daily as needed for severe (level 6-10 out of 10) pain. 2. Morbid obesity; BMI 42.6 this admission with peripheral vascular disease; s/p bilateral vein stripping x 3 complicating #1 - Weight loss will be recommended. Check TSH. 3. Diabetes mellitus type 2; of unknown control with history of DKA, diabetic neuropathy compounding #1 & #2 - ADA diet and continue long-acting insulin at approximately 70% of her previous home dose. FSBS q. AC/HS plus SSI. Check hemoglobin A1c to objectively evaluate quality of diabetic control as this is likely a significant factor in the development of #1. 4. History of tobacco abuse; subsequent COPD and chronic hypoxic respiratory failure on as needed 4 L nasal cannula with shortness of breath present on admission adding to the pathology of #1 - #3 - Tobacco cessation will be strongly encouraged with nicotine patch offered to control cravings. Give nebulizers as needed. Continue as needed supplemental oxygen as previous. 5. History of substance abuse with opioids, methamphetamine and MDMA - Check [place] urine drug screen this admission to evaluate for recurrence. 6. History of PAF; on Eliquis - Resume Eliquis as previous. 7. Essential hypertension - Continue home regimen plus give as needed hydralazine for systolic blood pressure greater than 160 mmHg. 8. Hyperlipidemia - Resume statin. 9. Hypothyroidism - Continue Synthroid as previous plus check TSH this admission. 10. CAD; status post [place] - Stable. 11. History of CHF - Stable with normal BNP of 79.3 pg/mL present on admission and chest x-ray negative for congestion. 12. History of pericardial effusion; with cardiac tamponade - Noted with no signs of recurrence at this time. 13. History of cardiac arrest; status post successful resuscitation with ACLS - Noted. 14. History of secondary pulmonary hypertension - Noted. 15. CKD; stage III (with baseline creatinine of approximately 1.9 mg/dL) - Stable. Check daily CMP to ensure continued stability. 16. KE - Apparently stable with hemoglobin of 10.6 g/dL present on admission. 17. History of seizure disorder; on divalproex - Continue current treatment. 18. Macular degeneration - Noted. 19. Schizoaffective disorder; bipolar type - Stable. 20. History of lichen sclerosis - Noted. 21. History of colonic diverticulosis - Noted. 22. History of migraine headaches - Noted. 23. IBS - Stable. 24. GERD - Continue PPI. 25. Gout - Stable with no evidence of acute flare. 26. Osteoarthritis - Give Tylenol prn. 27. DVT prophylaxis - Patient is on Eliquis which will be continued. Total time: Approximately 75 minutes. Charges/Coding Visit Charges Inpatient E&M: 94121 Init Hosp L3
[2023-07-27 22:15] LABS: Hemoglobin A1c 10.3 % (3.8-5.6)
[2023-07-27 23:04] LABS: Amphetamine Urine VISTA NEGATIVE (<1000 ng/mL); Barbiturate Urine VISTA NEGATIVE (< 200 ng/mL); Benzodiazepine Urine VISTA NEGATIVE (< 200 ng/mL); Cocaine Urine VISTA NEGATIVE (< 300 ng/mL); Ecstacy Urine VISTA NEGATIVE (< 500 ng/mL); Methadone Urine VISTA NEGATIVE (< 300 ng/mL); PCP Urine VISTA NEGATIVE (< 25 ng/mL); THC Urine VISTA NEGATIVE (< 50 ng/mL); Vista UDS pH Range 4
--- NOTE | 2023-07-27 23:49 | NURSING ---
pt unable to stay awake during admission. states her pain is 6/10 and she needs pain medication and them falls asleep.
[2023-07-28] MEDS: Lactobacillis Acidophilus 2 CAP PO ×3 (01:06→23:26)
[2023-07-28] MEDS: Aztreonam 2 GM in 0.9% Normal Saline (100mL MB+) 100 ML IV ×3 (01:07→22:58)
[2023-07-28] MEDS: 0.9% Normal Saline (250mL Bag) 250 ML 15 ML IV (01:07)
[2023-07-28] MEDS: APIXABAN 5 MG TABLET PO ×3 (01:08→23:27)
[2023-07-28] MEDS: HYDROcodone Bitartrate/Apap 5/325 Tablet PO ×3 (01:15→22:59)
[2023-07-28 01:50] LABS: Bedside Glucose 127 mg/dL (74-106)
[2023-07-28] MEDS: Albumin Human 25% (100 mL) 25 GM/100 ML BAG IV (02:00)
--- NOTE | 2023-07-28 04:06 | PCM.RX.CS ---
Consult Antibiotic Management Pharmacy has been consulted to manage selected antibiotic: Vancomycin Type of Intervention Type of Consult: New start Labs Labs: Sodium 138 mmol/L (136-145) 07/27/23 16:00 Potassium 4.1 mmol/L (3.5-5.1) 07/27/23 16:00 Chloride 101 mmol/L (98-107) 07/27/23 16:00 Carbon Dioxide 28.0 mmol/L (21.0-32.0) 07/27/23 16:00 Anion Gap 9 (5-15) 07/27/23 16:00 BUN 26 mg/dL (7-18) H 07/27/23 16:00 Creatinine 2.24 mg/dL (0.55-1.02) H 07/27/23 16:00 Est GFR (MDRD) Af Amer 28 mL/min (>60) L 07/27/23 16:00 Est GFR (MDRD) Non-Af 23 mL/min (>60) L 07/27/23 16:00 BUN/Creatinine Ratio 11.6 RATIO (10-20) 07/27/23 16:00 Glucose 180 mg/dL (74-106) H 07/27/23 16:00 Dosing Weight Weight used for dosin.9 kg Estimated Creatinine Clearance Estimated Creatinine Clearance: 30.48 Goal Trough Goal Trough: 15-20 mcg/mL Pharmacy Plan for Drug Dosing Pharmacy Plan for Drug Dosing: Pharmacy Service will continue to monitor and adjust dosing as required. 1750MG IN ER, 1500MG Q24H TROUGH PRIOR TO 3RD DOSE Follow-Up Labs Follow-Up Labs: Trough: Vancomycin Date/Time Labs Ordered Labs to be done on [date and time ordered]: 07/29 @ 1800
[2023-07-28] MEDS: Ketorolac 15 MG/ML Vial IV (05:02)
[2023-07-28] MEDS: Levothyroxine 100 MCG Tablet PO (05:07)
[2023-07-28 05:17] VITALS: BP 125/51; PULSE 60; RESP 16; TEMP 36.6; O2SAT 93
[2023-07-28 06:00] VITALS: BMI 42.4
[2023-07-28] MEDS: Albuterol 2.5 MG/3 ML VIAL.NEB. INHALATION ×2 (07:14→19:18)
[2023-07-28 07:15] VITALS: PULSE 88; RESP 20; O2SAT 96
[2023-07-28] MEDS: Budesonide Respules 0.5 MG/2 ML AMPUL.NEB. INHALATION ×2 (07:15→19:18)
[2023-07-28 07:24] LABS: Bedside Glucose 133 mg/dL (74-106)
[2023-07-28 07:47] LABS: Absolute Neutrophil Count 2.9 X10^3/uL (2.0-7.7); Basophil# 0.02 X10^3/uL; Basophil% 0.4 % (0-1); Eosinophil# 0.16 X10^3/uL; Eosinophils% 3.4 % (0-5); Hematocrit 29.9 % (37-47); Hemoglobin 9.3 g/dL (12.0-15.0); Lymphocyte % 25.3 % (19-41); Mean Corp Hgb Conc 31.1 g/dL (32-36); Mean Corpuscular Hgb 28.8 pg (27.0-32.0); Mean Corpuscular Volume 92.6 fL (81-99); Monocyte# 0.47 X10^3/uL; Monocyte% 9.9 % (0-10); NRBC Flagged by Analyzer 0.6 % (0-5); Neutrophil # 2.89 X10^3/uL (2.7-7.7); Neutrophil % 60.8 % (47-70); POSITIVE COUNT YES; Platelet Count 94 K/mm3 (150-450); RBC Distribution Width CV 15.8 % (11.6-14.6); Red Blood Count 3.23 M/mm3 (4.2-5.4); White Blood Count 4.8 K/mm3 (4.4-11.0)
[2023-07-28 07:49] LABS: Differential Indicated SCAN CRITERIA MET
[2023-07-28] MEDS: CLARIFY ORDER 1 EACH NOTE (07:51)
[2023-07-28] MEDS: Tolterodine Tartrate 2 MG CAP.SA PO (07:52)
[2023-07-28] MEDS: Cholecalciferol (Vit D3) 125 MCG CAPSULE (5,000 UNITS) PO (07:52)
[2023-07-28] MEDS: Meloxicam 7.5 MG Tablet PO (07:53)
[2023-07-28] MEDS: Zinc Sulfate 50 mg zinc (220 mg) ORAL capsule PO (07:53)
[2023-07-28] MEDS: Ascorbic Acid 500 MG Tablet 1000 MG PO (07:53)
[2023-07-28] MEDS: Pantoprazole Sodium 40 MG Tablet PO (07:53)
[2023-07-28] MEDS: Fluoxetine HCl 40 MG CAPSULE PO (07:53)
[2023-07-28] MEDS: Insulin Glargine-YFGN 100 UNIT/ML Pen 15 UNIT SC (07:54)
[2023-07-28] MEDS: Furosemide 40 MG Tablet PO (07:59)
[2023-07-28] MEDS: Nystatin Powder 15gm Bottle 1 APPLIC TOPICAL ×2 (08:12→23:28)
[2023-07-28 08:15] VITALS: BP 111/71; PULSE 61; RESP 16; TEMP 36.4; O2SAT 94
[2023-07-28 08:20] LABS: ALB/GLOB Ratio 1.1 RATIO (0.9-2.4); AST(SGOT) 17 U/L (15-37); Alanine Aminotransfer ALT/SGPT 19 U/L (13-56); Albumin, Serum 2.8 g/dL (3.2-5.0); Alkaline Phosphatase 52 U/L (45-117); Anion Gap 6 (5-15); BUN 27 mg/dL (7-18); BUN/Creat Ratio 14.8 RATIO (10-20); Calcium,Total 8.1 mg/dL (8.5-10.1); Chloride 105 mmol/L (98-107); Creatinine, Serum 1.83 mg/dL (0.55-1.02); EST Glomerular Filtration Rate 30 mL/min (>60); Est Glom Filt Rate - Afr Amer 36 mL/min (>60); Estimated Creatinine Clearance 37.22 ml/min; Globulin 2.6 g/dL (2.2-4.2); Glucose 127 mg/dL (74-106); Magnesium 2.2 mg/dL (1.6-2.6); Phosphorus 4.4 mg/dL (2.5-4.9); Potassium 3.9 mmol/L (3.5-5.1); Protein, Total 5.4 g/dL (6.4-8.2); Sodium Level 139 mmol/L (136-145); Thyroid Stim Hormone (TSH) 2.19 uIU/mL (0.358-3.74)
[2023-07-28 08:26] LABS: M R Staph aureus DNA By PCR Negative (Negative); Probe Check PASS; Specimen Processing Control PASS
[2023-07-28 08:35] LABS: Bedside Glucose 119 mg/dL (74-106)
[2023-07-28 08:57] LABS: Platelet Estimate MOD DEC (ADEQ)
--- NOTE | 2023-07-28 11:15 | PCM.PN.HOSP ---
Subjective Subjective Doing well, no issues overnight. Still some lower extremity pain and edema Objective Data Objective Data Vital Signs: Vital Signs Temp Pulse Resp BP Pulse Ox O2 Del Method O2 Flow Rate 97.6 F L 61 16 111/71 94 Room Air 2 07/28/23 08:15 07/28/23 08:15 07/28/23 08:15 07/28/23 08:15 07/28/23 08:15 07/28/23 08:15 07/28/23 07:15 Oxygen Flow Rate (L/min) 2 Oxygen Delivery Method Room Air Weight: 239 lb 10.279 oz Body Mass Index (BMI) 42.4 Intake & Output: Intake and Output for Last 24 Hours 07/27/23 07/28/23 07/29/23 03:59 03:59 03:59 Intake Total 735 / 835 800 / 800 Output Total 0 / 0 Balance 735 / 835 800 / 800 Lab / Micro Data 07/28/23 07:00 07/28/23 07:00 Labs: Laboratory Results - last 24 hr 07/27/23 15:00: B-Natriuretic Peptide 79.3 07/27/23 16:00: WBC 5.9, RBC 3.74 L, Hgb 10.6 L, Hct 34.3 L, MCV 91.7, MCH 28.3, MCHC 30.9 L, RDW Std Deviation 51.8 H, RDW Coeff of Penny 15.6 H, Plt Count 128 L, MPV 9.8, Immature Gran % (Auto) 0.200, Neut % (Auto) 62.6, Lymph % (Auto) 23.4, [place] % (Auto) 9.8, Eos % (Auto) 3.7, Baso % (Auto) 0.3, Absolute Neuts (auto) 3.7, Absolute Lymphs (auto) 1.38, Nucleated RBC % 0, Sodium 138, Potassium 4.1, Chloride 101, Carbon Dioxide 28.0, Anion Gap 9, BUN 26 H, Creatinine 2.24 H, Estim Creat Clear Calc 30.48, Est GFR (MDRD) Af Amer 28 L, Est GFR (MDRD) Non-Af 23 L, BUN/Creatinine Ratio 11.6, Glucose 180 H, Calcium 8.6, Troponin I High Sens 7 07/27/23 21:50: Hemoglobin A1c 10.3 H 07/27/23 22:28: Urine Opiates Screen POSITIVE H, Urine Methadone Screen NEGATIVE, Ur Barbiturates Screen NEGATIVE, Ur Phencyclidine Scrn NEGATIVE, Ur Amphetamines Screen NEGATIVE, MDMA (Ecstasy) Screen NEGATIVE, U Benzodiazepines Scrn NEGATIVE, Urine Cocaine Screen NEGATIVE, U Cannabinoids Screen NEGATIVE, Ur Drug Screen Comment 07/28/23 01:04: POC Glucose 127 H 07/28/23 05:05: MRSA (PCR) Negative 07/28/23 07:00: WBC 4.8, RBC 3.23 L, Hgb 9.3 L, Hct 29.9 L, MCV 92.6, MCH 28.8, MCHC 31.1 L, RDW Std Deviation 53.0 H, RDW Coeff of Penny 15.8 H, Plt Count 94 L, MPV 10.0, Immature Gran % (Auto) 0.200, Neut % (Auto) 60.8, Lymph % (Auto) 25.3, [place] % (Auto) 9.9, Eos % (Auto) 3.4, Baso % (Auto) 0.4, Absolute Neuts (auto) 2.9, Absolute Lymphs (auto) 1.20, Nucleated RBC % 0.6, Platelet Estimate MOD DEC, Sodium 139, Potassium 3.9, Chloride 105, Carbon Dioxide 28.0, Anion Gap 6, BUN 27 H, Creatinine 1.83 H, Estim Creat Clear Calc 37.22, Est GFR (MDRD) Af Amer 36 L, Est GFR (MDRD) Non-Af 30 L, BUN/Creatinine Ratio 14.8, Glucose 127 H, Calcium 8.1 L, Phosphorus 4.4, Magnesium 2.2, Total Bilirubin 0.40, AST 17, ALT 19, Alkaline Phosphatase 52, Total Protein 5.4 L, Albumin 2.8 L, Globulin 2.6, Albumin/Globulin Ratio 1.1, TSH 2.19 07/28/23 07:05: POC Glucose 133 H 07/28/23 07:50: POC Glucose 119 H Radiography Diagnostic Testing: Radiology Impression Chest X-Ray 07/27/23 16:35 IMPRESSION: No acute findings in the chest. Electronically Signed: Jerardo Rivera MD at 16:55 EDT , Venous Duplex 07/27/23 17:59 IMPRESSION: Normal bilateral lower extremity duplex venous ultrasound. Electronically Signed: Jerardo Rivera MD at 18:48 EDT , Physical Exam Narrative General: Alert, Oriented x3, Cooperative, No apparent distress HEENT: Atraumatic, PERRLA, EOMI, Normocephalic Oral: Moist Mucosa Neck: Supple, No JVD Lungs: Diminished, Normal air movement, No rhonchi, No wheeze, No rales Cardiovascular: Regular rate, Regular Rhythm, Normal S1, Normal S2, No murmurs Abdomen: Soft, Non Tender, Non-Distended, No Hepato-splenomegaly Extremities: Bilateral lower extremity edema, Capillary Refill Less than 3 Seconds Skin: Lower extremity edema with chronic venous stasis changes, it is red without being overly warm compared to the rest of her skin Musculoskeletal: No Tenderness to Palpation of Joints or Extremities Neurological: No focal neurological deficits, Motor Exam 5/5 strength throughout, Sensory exam intact to light touch and pain Psych/Mental Status: Normal Affect, Appropriate Assessment & Plan Assessment/Plan (1) Peripheral edema: (2) Morbid obesity with BMI of 40.0-44.9, adult: (3) History of diabetes mellitus, type II: (4) History of CHF (congestive heart failure): (5) History of tobacco use: PLAN: Plan 1. Lower extremity edema with redness unlikely for bilateral cellulitis ? Bilateral cellulitis is not generally a diagnosis in the absence of wounds ? Dopplers are negative for DVT ? Continue with Lasix ? Will await for finalization of blood cultures obtained on 07/25/2023 prior to discontinuing antibiotics ? PT/OT 2. History of cardiac arrest/paroxysmal A-fib/pulmonary hypertension/chronic diastolic CHF ?Chronic lower extremity edema is likely related to her diastolic CHF ? Continue with Lasix ? Continue with her home blood pressure medications we will monitor make adjustments as necessary ? Continue with her Lipitor 3. Hypothyroidism ? Stable ? Continue with Synthroid 4. Seizure disorder ? Stable ? Continue with her home medications 5. GERD ? Stable ? Continue with PPI 6. Anxiety/depression/chronic pain ? Stable ? Continue with her home medications DVT: SCDs Charges/Coding Visit Charges Inpatient E&M: 34193 Subs Hosp L2
[2023-07-28] MEDS: Insulin Lispro 100 UNIT/ML INSULN.PEN SC ×3 (11:41→23:00)
[2023-07-28 12:06] LABS: Bedside Glucose 256 mg/dL (74-106)
--- NOTE | 2023-07-28 12:30 | CASEMGMT ---
HAKEEM DELUNA chart review: Patient was admitted 06/23-06/27/23 for unresponsiveness and hypotension. See HAKEEM DELUNA assessment from 06/25/23. Patient was discharged to home with palliative care, baseline home oxygen, outpatient therapy, and family support. Patient was seen in the ED on 07/23/23 for cellulitis and was discharged on Keflex. Patient returned to ED on 07/25/23 for continued cellulitis and questionable CHF, was discharged on increase in Lasix to 40mg BID. Patient returned to [facility] ED for increased redness to lower extremities and admitted for failed outpatient antibiotics for cellulitis. HAKEEM DELUNA in to discuss readmission and needs at discharge, sister at bedside. Patient is active with palliative care, has CM through [facility], will have aides starting this week. Patient states she took all her medications as prescribed and followed up with PCP. Patient did not attend outpatient therapy as she said no one ever called her to set it up. HAKEEM DELUNA dicussed needs at discharge. Patient states she is not home bound and would like outpatient therapy at [facility]. Patient denied further needs. HAKEEM DELUNA called [facility] to inquire about outapatient therapy setup, nurse was not aware of agency that was setup for other patients. HAKEEM DELUNA called and left message for REGI Veras at [facility] for assistance with outpatient setup at [facility]. CM will continue to follow this patient and plan for a safe discharge.
[2023-07-28] MEDS: Gabapentin 300 MG Capsule PO ×3 (13:13→22:59)
[2023-07-28 14:15] VITALS: BP 97/49; PULSE 65; RESP 18; TEMP 35.9; O2SAT 92
[2023-07-28 16:36] LABS: Bedside Glucose 168 mg/dL (74-106)
[2023-07-28] MEDS: Vancomycin HCl 1,500 MG in 0.9% Normal Saline (500mL Bag) 500 ML 250 MG IV (17:29)
[2023-07-28 19:20] VITALS: PULSE 73; RESP 18; O2SAT 98
[2023-07-28] MEDS: traZODone 100 MG Tablet PO (23:00)
--- NOTE | 2023-07-28 23:00 | NURSING ---
meds administered late b/c they were not on floor and had to be ordered from pharmacy.
[2023-07-28] MEDS: Divalproex (ER) 500 MG Tablet PO (23:26)
[2023-07-28] MEDS: ARIPiprazole 10 MG Tablet 20 MG PO (23:27)
[2023-07-28 23:28] VITALS: BP 112/61; PULSE 66; RESP 16; TEMP 36.6; O2SAT 94
[2023-07-28] MEDS: Atorvastatin Calcium 20 MG Tablet PO (23:28)
[2023-07-28 23:52] LABS: Bedside Glucose 247 mg/dL (74-106)
[2023-07-29] VITALS (7 sets, daily range): BP systolic 98–123; BP diastolic 40–51; PULSE 62–78; RESP 16–20; TEMP 36.3–36.9; O2SAT 93–95; BMI 42.5
[2023-07-29] MEDS: Levothyroxine 100 MCG Tablet PO (05:20)
[2023-07-29] MEDS: Albuterol 2.5 MG/3 ML VIAL.NEB. INHALATION ×2 (07:12→19:39)
[2023-07-29] MEDS: Budesonide Respules 0.5 MG/2 ML AMPUL.NEB. INHALATION ×2 (07:12→19:39)
[2023-07-29 07:22] LABS: Bedside Glucose 99 mg/dL (74-106)
[2023-07-29] MEDS: Ascorbic Acid 500 MG Tablet 1000 MG PO ×2 (09:05→17:11)
[2023-07-29] MEDS: Lactobacillis Acidophilus 2 CAP PO ×2 (09:06→20:22)
[2023-07-29] MEDS: VALBENAZINE TOSYLATE 40 MG CAPSULE PO (09:06)
[2023-07-29] MEDS: APIXABAN 5 MG TABLET PO ×2 (09:06→20:23)
[2023-07-29] MEDS: Tolterodine Tartrate 2 MG CAP.SA PO (09:06)
[2023-07-29] MEDS: Zinc Sulfate 50 mg zinc (220 mg) ORAL capsule PO (09:07)
[2023-07-29] MEDS: Furosemide 40 MG Tablet PO (09:07)
[2023-07-29] MEDS: Pantoprazole Sodium 40 MG Tablet PO (09:07)
[2023-07-29] MEDS: Fluoxetine HCl 40 MG CAPSULE PO (09:07)
[2023-07-29] MEDS: Nystatin Powder 15gm Bottle 1 APPLIC TOPICAL ×2 (09:07→20:28)
[2023-07-29] MEDS: Gabapentin 300 MG Capsule PO ×4 (09:07→20:22)
[2023-07-29] MEDS: Meloxicam 7.5 MG Tablet PO (09:07)
[2023-07-29] MEDS: Cholecalciferol (Vit D3) 125 MCG CAPSULE (5,000 UNITS) PO (09:07)
[2023-07-29 09:30] LABS: Bedside Glucose 107 mg/dL (74-106)
[2023-07-29] MEDS: Aztreonam 2 GM in 0.9% Normal Saline (100mL MB+) 100 ML IV (10:56)
[2023-07-29] MEDS: 0.9% Saline Lock 10 ML Syringe IV (10:56)
[2023-07-29] MEDS: Insulin Lispro 100 UNIT/ML INSULN.PEN SC ×3 (11:44→20:24)
[2023-07-29 12:05] LABS: Bedside Glucose 168 mg/dL (74-106)
--- NOTE | 2023-07-29 12:23 | PCM.PN.HOSP ---
Subjective Subjective Feels little bit better today, pain is improved on the lower extremities Objective Data Objective Data Vital Signs: Vital Signs Temp Pulse Resp BP Pulse Ox O2 Del Method O2 Flow Rate 98.1 F 71 18 107/51 L 94 Room Air 2 07/29/23 08:42 07/29/23 08:42 07/29/23 08:42 07/29/23 08:42 07/29/23 08:42 07/29/23 10:13 07/28/23 07:15 Oxygen Flow Rate (L/min) 2 Oxygen Delivery Method Room Air Weight: 240 lb 1.334 oz Body Mass Index (BMI) 42.5 Intake & Output: Intake and Output for Last 24 Hours 07/28/23 07/29/23 07/30/23 03:59 03:59 03:59 Intake Total 735 / 835 2207 / 2207 183 / 183 Output Total 0 / 0 Balance 735 / 835 2207 / 2207 183 / 183 Lab / Micro Data 07/28/23 07:00 07/28/23 07:00 Labs: Laboratory Results - last 24 hr 07/28/23 16:11: POC Glucose 168 H 07/28/23 22:57: POC Glucose 247 H 07/29/23 07:04: POC Glucose 99 07/29/23 09:00: POC Glucose 107 H 07/29/23 11:42: POC Glucose 168 H Physical Exam Narrative General: Alert, Oriented x3, Cooperative, No apparent distress HEENT: Atraumatic, PERRLA, EOMI, Normocephalic Oral: Moist Mucosa Neck: Supple, No JVD Lungs: Diminished, Normal air movement, No rhonchi, No wheeze, No rales Cardiovascular: Regular rate, Regular Rhythm, Normal S1, Normal S2, No murmurs Abdomen: Soft, Non Tender, Non-Distended, No Hepato-splenomegaly Extremities: Bilateral lower extremity edema, Capillary Refill Less than 3 Seconds Skin: Lower extremity edema with chronic venous stasis changes, it is red without being overly warm compared to the rest of her skin Musculoskeletal: No Tenderness to Palpation of Joints or Extremities Neurological: No focal neurological deficits, Motor Exam 5/5 strength throughout, Sensory exam intact to light touch and pain Psych/Mental Status: Normal Affect, Appropriate Assessment & Plan Assessment/Plan (1) Peripheral edema: (2) Morbid obesity with BMI of 40.0-44.9, adult: (3) History of diabetes mellitus, type II: (4) History of CHF (congestive heart failure): (5) History of tobacco use: PLAN: Plan 1. Lower extremity edema with redness unlikely for bilateral cellulitis ? Bilateral cellulitis is not generally a diagnosis in the absence of wounds ? Dopplers are negative for DVT ? Continue with Lasix ?Blood cultures are negative, will discontinue antibiotics ? PT/OT 2. History of cardiac arrest/paroxysmal A-fib/pulmonary hypertension/chronic diastolic CHF ?Chronic lower extremity edema is likely related to her diastolic CHF ? Continue with Lasix ? Continue with her home blood pressure medications we will monitor make adjustments as necessary ? Continue with her Lipitor 3. Hypothyroidism ? Stable ? Continue with Synthroid 4. Seizure disorder ? Stable ? Continue with her home medications 5. GERD ? Stable ? Continue with PPI 6. Anxiety/depression/chronic pain ? Stable ? Continue with her home medications DVT: SCDs Charges/Coding Visit Charges Inpatient E&M: 63207 Subs Hosp L2
[2023-07-29 17:31] LABS: Bedside Glucose 164 mg/dL (74-106)
[2023-07-29] MEDS: Divalproex (ER) 500 MG Tablet PO (20:22)
[2023-07-29] MEDS: Atorvastatin Calcium 20 MG Tablet PO (20:23)
[2023-07-29] MEDS: ARIPiprazole 10 MG Tablet 20 MG PO (20:23)
[2023-07-29] MEDS: traZODone 100 MG Tablet PO (20:23)
[2023-07-29] MEDS: HYDROcodone Bitartrate/Apap 5/325 Tablet PO (20:26)
[2023-07-29 21:06] LABS: Bedside Glucose 188 mg/dL (74-106)
[2023-07-30 03:00] VITALS: O2SAT 95
[2023-07-30 03:04] VITALS: BP 147/69; PULSE 65; RESP 18; TEMP 36.4; O2SAT 95
[2023-07-30 05:50] VITALS: BMI 42.1
[2023-07-30] MEDS: Levothyroxine 100 MCG Tablet PO (06:29)
[2023-07-30] MEDS: Insulin Lispro 100 UNIT/ML INSULN.PEN SC ×2 (06:29→11:06)
[2023-07-30 06:52] LABS: Absolute Lymphocyte Count 1.11 X10^3/uL (0.83-4.51); Absolute Neutrophil Count 3.2 X10^3/uL (2.0-7.7); Basophil# 0.01 X10^3/uL; Basophil% 0.2 % (0-1); Eosinophil# 0.18 X10^3/uL; Eosinophils% 3.5 % (0-5); Hematocrit 31.4 % (37-47); Hemoglobin 9.5 g/dL (12.0-15.0); Lymphocyte # 1.11 X10^3/ul (0.83-4.51); Lymphocyte % 21.9 % (19-41); Mean Corp Hgb Conc 30.3 g/dL (32-36); Mean Corpuscular Hgb 28.4 pg (27.0-32.0); Mean Platelet Vol. 10.5 fl (6.2-12.0); Monocyte# 0.55 X10^3/uL; Monocyte% 10.8 % (0-10); NRBC Flagged by Analyzer 0 % (0-5); Neutrophil # 3.22 X10^3/uL (2.7-7.7); Neutrophil % 63.4 % (47-70); Platelet Count 101 K/mm3 (150-450); RBC Distribution Width CV 16.1 % (11.6-14.6); RBC Distribution Width SD 54.5 fl (35.1-43.9); Red Blood Count 3.34 M/mm3 (4.2-5.4); White Blood Count 5.1 K/mm3 (4.4-11.0)
[2023-07-30 07:24] VITALS: PULSE 75; RESP 20; O2SAT 95
[2023-07-30] MEDS: Albuterol 2.5 MG/3 ML VIAL.NEB. INHALATION (07:24)
[2023-07-30] MEDS: Budesonide Respules 0.5 MG/2 ML AMPUL.NEB. INHALATION (07:24)
[2023-07-30 08:12] LABS: Bedside Glucose 186 mg/dL (74-106)
[2023-07-30 08:26] LABS: Anion Gap 6 (5-15); BUN 34 mg/dL (7-18); BUN/Creat Ratio 19.8 RATIO (10-20); Calcium,Total 9.2 mg/dL (8.5-10.1); Chloride 105 mmol/L (98-107); Creatinine, Serum 1.72 mg/dL (0.55-1.02); EST Glomerular Filtration Rate 32 mL/min (>60); Est Glom Filt Rate - Afr Amer 38 mL/min (>60); Estimated Creatinine Clearance 39.43 ml/min; Glucose 171 mg/dL (74-106); Potassium 4.1 mmol/L (3.5-5.1); Sodium Level 141 mmol/L (136-145)
[2023-07-30] MEDS: Gabapentin 300 MG Capsule PO ×2 (08:37→13:07)
[2023-07-30] MEDS: Tolterodine Tartrate 2 MG CAP.SA PO (08:39)
[2023-07-30] MEDS: Lactobacillis Acidophilus 2 CAP PO (08:39)
[2023-07-30] MEDS: Ascorbic Acid 500 MG Tablet 1000 MG PO (08:39)
[2023-07-30] MEDS: APIXABAN 5 MG TABLET PO (08:39)
[2023-07-30] MEDS: Nystatin Powder 15gm Bottle 1 APPLIC TOPICAL (08:40)
[2023-07-30] MEDS: Meloxicam 7.5 MG Tablet PO (08:40)
[2023-07-30] MEDS: Furosemide 40 MG Tablet PO (08:40)
[2023-07-30] MEDS: Zinc Sulfate 50 mg zinc (220 mg) ORAL capsule PO (08:41)
[2023-07-30] MEDS: Cholecalciferol (Vit D3) 125 MCG CAPSULE (5,000 UNITS) PO (08:41)
[2023-07-30] MEDS: Pantoprazole Sodium 40 MG Tablet PO (08:41)
[2023-07-30] MEDS: Fluoxetine HCl 40 MG CAPSULE PO (08:41)
[2023-07-30] MEDS: VALBENAZINE TOSYLATE 40 MG CAPSULE PO (08:42)
[2023-07-30 08:45] VITALS: BP 120/63; PULSE 62; RESP 16; TEMP 36.7; O2SAT 92
--- NOTE | 2023-07-30 09:53 | CASEMGMT ---
Addendum entered by Germaine Paez 07/30/23 12:23: ELIZABETH met with patient. Introduced self and role at [facility]. ELIZABETH notified patient that SW spoke with Eda and she asked if physician could write a prescription for a scale. Eda said if insurance does not pay for it she will work on getting patient a scale. ELIZABETH notified patient that ELIZABETH asked Eda if she could have the meals that she receives low sodium. Patient thanked ELIZABETH for the information. Germaine PÉREZ Original Note: ELIZABETH called Eda Camargo with [facility]. ELIZABETH asked Eda if patient could get low sodium meals delivered. Eda said she could check on this. Eda asked if the physician could write a prescription for a scale. Eda thinks Medicare would cover a scale and if not she would be able to assist patient in obtaining a scale. ELIZABETH notified Eda that patient will likely be discharged today with outpatient therapy. Germaine PÉREZ
[2023-07-30] MEDS: Insulin Glargine-YFGN 100 UNIT/ML Pen 15 UNIT SC (11:06)
--- NOTE | 2023-07-30 11:20 | DCINST_ITS ---
Discharge Instructions Diet Discharge Diet: Low fat / Low cholesterol and 6 Cup Fluid Restriction Activity Discharge Activity: Return to Normal Activity Dressing / Incision Call your doctor if you observe: Fever of 101 or Higher, Shortness of breath, Dizziness, Fainting spells, Swelling in the ankles, Chest pain and Increased palpitations (irregular heartbeat) Follow Up Care Test Results: Test results from this visit will be discussed in further detail at your follow- up appointment, if applicable. Discharge Plan Admission Admit Date/Time: 07/27/23 20:48 Attending Provider: Ed Condon Primary Care Provider: Eric Marion [facility] Consulting Providers: Elliot Zuniga Instructions Additional Instructions / Restrictions: Follow-up with your PCP in 3 to 5 days to monitor your kidney function as well as your swelling. Discharge Orders/Prescriptions Prescriptions: New furosemide 40 mg Tablet 40 mg PO DAILY 30 Days Qty: 30 0RF Continued atorvastatin 20 mg tablet 20 mg PO DAILY Eliquis 5 mg tablet 5 mg PO BID Jardiance 10 mg tablet 10 mg PO DAILY gabapentin 300 mg capsule 300 mg PO 4X/DAY fluoxetine 40 mg capsule 40 mg PO DAILY fluticasone propionate 50 mcg/actuation spray,suspension 1 spray intranasal DAILY PRN (Reason: allergy symptoms) Patient Comments: instill 2 sprays in each nostril daily budesonide-formoterol [Symbicort] 80-4.5 mcg/actuation HFA aerosol inhaler 2 inh inhalation BID Patient Comments: INHALE TWO PUFFS BY MOUTH TWICE DAILY. RINSE MOUTH AFTER USE Ingrezza 40 mg capsule 40 mg PO DAILY albuterol sulfate 90 mcg/actuation HFA aerosol inhaler 1 inh INHALATION PRN PRN (Reason: shortness of breath or wheezing) trazodone 100 mg tablet 100 mg PO QHS Patient Comments: TAKE 1 TABLET BY MOUTH EVERY DAY AT NIGHT meloxicam 7.5 mg tablet 7.5 mg PO DAILY Patient Comments: TAKE 1 TABLET BY MOUTH EVERY DAY FOR 30DAYS ON A FULL STOMACH aripiprazole 20 mg tablet 20 mg PO QHS Patient Comments: TAKE ONE TABLET BY MOUTH DAILY AT 9AM pantoprazole 40 mg tablet,delayed release (DR/EC) 40 mg PO DAILY Qty: 30 0RF hydrocodone-acetaminophen 5-325 mg tablet 1 tab PO BID PRN PRN (Reason: pain) famotidine 20 mg tablet 20 mg PO DAILY divalproex 500 mg tablet extended release 24 hr 500 mg PO DAILY insulin glargine [Lantus Solostar U-100 Insulin] 100 unit/mL (3 mL) insulin pen 20 unit subcut DAILY levothyroxine 100 mcg tablet 100 mcg PO DAILY oxybutynin chloride 5 mg tablet extended release 24hr 5 mg PO DAILY Mounjaro 2.5 mg/0.5 mL pen injector 2.5 mg subcut QWEEK cephalexin 500 mg capsule 500 mg PO Q6 Qty: 40 0RF Rx Instructions: Complete course Discontinued furosemide [Lasix] 40 mg tablet 40 mg PO BID 10 Days Qty: 20 0RF Referrals / Follow Up: Eric Marion Pushpa, [employer] [Primary Care Provider] - Within 1 Week Disposition Disposition (needs filled in before D/C Order can be placed): Home, Self Care
[2023-07-30 11:32] LABS: Bedside Glucose 154 mg/dL (74-106)
[2023-07-30 13:06] VITALS: BP 149/52; PULSE 66; RESP 16; TEMP 36.6; O2SAT 93
--- NOTE | 2023-07-30 13:06 | PCM.DC.SUM ---
Providers Date of Admission: 07/27/23 Primary Care Physician: FATMATA Dalal Reason For Visit: BILATERAL LOWER EXTREMITY CELLULITIS Diagnosis Discharge Diagnosis (1) Peripheral edema: Status: Acute Code(s): R60.0 - Localized edema (2) Morbid obesity with BMI of 40.0-44.9, adult: Status: Acute Code(s): E66.01 - Morbid (severe) obesity due to excess calories; Z68.41 - Body mass index [BMI] 40.0-44.9, adult (3) History of diabetes mellitus, type II: Status: Acute Code(s): Z86.39 - Personal history of other endocrine, nutritional and metabolic disease (4) History of CHF (congestive heart failure): Status: Acute Code(s): Z86.79 - Personal history of other diseases of the circulatory system (5) History of tobacco use: Status: Acute Code(s): Z87.891 - Personal history of nicotine dependence Medications at Discharge Home Medications apixaban 5 mg tablet (Eliquis) 5 mg PO BID a. fib. 12/24/22 atorvastatin 20 mg tablet 20 mg PO DAILY cholesterol 12/24/22 empagliflozin 10 mg tablet (Jardiance) 10 mg PO DAILY diabetes 12/24/22 gabapentin 300 mg capsule 300 mg PO 4X/DAY 12/25/22 albuterol sulfate 90 mcg/actuation aerosol inhaler 1 inh inhalation PRN PRN shortness of breath or wheezing 12/31/22 meloxicam 7.5 mg tablet 7.5 mg PO DAILY 01/01/23 trazodone 100 mg tablet 100 mg PO QHS 01/01/23 aripiprazole 20 mg tablet 20 mg PO QHS mental health 03/09/23 pantoprazole 40 mg tablet,delayed release 40 mg PO DAILY #30 tabs 03/09/23 budesonide-formoterol HFA 80 mcg-4.5 mcg/actuation aerosol inhaler (Symbicort) 2 inh inhalation BID breathing 04/27/23 fluoxetine 40 mg capsule 40 mg PO DAILY 04/27/23 fluticasone propionate 50 mcg/actuation nasal spray,suspension 1 spray intranasal DAILY PRN allergy symptoms 04/27/23 valbenazine 40 mg capsule (Ingrezza) 40 mg PO DAILY 04/27/23 divalproex 500 mg tablet,extended release 24 hr 500 mg PO DAILY 07/25/23 famotidine 20 mg tablet 20 mg PO DAILY 07/25/23 hydrocodone-acetaminophen 5-325mg 5mg-325mg 1 tab PO BID PRN PRN pain 07/25/23 insulin glargine 100 unit/mL (3 mL) subcutaneous pen (Lantus Solostar U-100 Insulin) 20 unit subcut DAILY 07/25/23 levothyroxine 100 mcg tablet 100 mcg PO DAILY 07/25/23 oxybutynin chloride 5 mg tablet,extended release 24 hr 5 mg PO DAILY 07/25/23 tirzepatide 2.5 mg/0.5 mL subcutaneous pen injector (Mounjaro) 2.5 mg subcut QWEEK 07/25/23 cephalexin 500 mg capsule 500 mg PO Q6 #40 CAPSULES 07/30/23 furosemide 40 mg tablet 40 mg PO DAILY 30 days #30 tabs 07/30/23 Hospital Course Operations None Procedures - (Venous duplex) Summary of Care Provided Minutes Spent on Discharge: 35 Hospital Course: Per HPI: JADE SWANSON, is a 62 F with a past medical history of essential hypertension, hyperlipidemia, hypothyroidism, morbid obesity; BMI 42.6 this admission, diabetes mellitus type 2; of unknown control with history of DKA, diabetic neuropathy, CAD; status post SD, history of CHF, history of PAF; on Eliquis, history of pericardial effusion; with cardiac tamponade, history of cardiac arrest; status post successful resuscitation with ACLS, history of secondary pulmonary hypertension, history of tobacco abuse; subsequent COPD, chronic hypoxic respiratory failure on as needed 4 L nasal cannula, history of substance abuse with opioids, methamphetamine and MDMA, CKD; stage III (with baseline creatinine of approximately 1.9 mg/dL), KE, PVD; with history of bilateral lower extremity vein stripping, history of seizure disorder; on divalproex, macular degeneration, schizoaffective disorder; bipolar type, chronic lower extremity edema, history of lichen sclerosis, history of colonic diverticulosis, history of migraine headaches, IBS, GERD, gout, osteoarthritis with previous bouts of LE cellulitis and recent admission here from June 24, 2023 to June 27, 2023 for treatment of chest pain, hypotension and acute toxic and metabolic encephalopathy with urine drug screen positive for opioids as well as MDMA with acute hypercapnic and hypoxic respiratory failure and acute exacerbation of CHF who presents to [facility] ER complaining of bilateral lower extremity swelling and shortness of breath. Ms. Salvador reports her symptoms began approximately 1 week prior to admission with progressively worsening bilateral lower extremity redness, swelling and pain with associated shortness of breath. She was diagnosed with cellulitis of her lower extremities as an outpatient and started on oral Keflex 2 days ago and she claims that she has been compliant with her therapy but her symptoms have not improved. She denies related fever, chills, nausea, vomiting, chest pain, palpitations or diaphoresis. In the ER she was diagnosed with bilateral lower extremity cellulitis that failed treatment with outpatient antibiotics with clindamycin with 2+ bilateral lower extremity edema and a chest x-ray negative for acute pathologic changes and a normal BNP of 79.3 pg/mL present on admission along with a Doppler of the bilateral lower extremities negative for DVT and she was then admitted to the general medical floor for ongoing care for state that is expected to extend beyond 2 midnights. Hospital Course: 1. Lower extremity edema with redness consistent with venous insufficiency?62-year-old female presented to the hospital afebrile without a leukocytosis with bilateral lower extremity edema and redness. Initially was thought to be bilateral cellulitis however this is a diagnosis is extremely unlikely. She has been on Keflex since her previous evaluation in the ER so we will complete that course of antibiotics. She had significant improvement in her lower extremity edema as well as redness with Lasix as well as wrapping her lower extremities. I discussed with her the possibility of discharge and she expressed understanding the risk benefits going home and would like to go home today. She was evaluated by PT and OT who did not feel that she needed any skilled interventions at this time. Blood cultures were negative and Dopplers of her lower extremities were negative for DVT. She had an echo with pulmonary artery systolic pressure 46 mmHg and a normal EF. She likely has diastolic dysfunction, however of note her BNP is never been greater than 100. I do recommend outpatient follow-up with her PCP in 3 to 5 days to monitor your renal function. Will continue with Lasix 40 mg p.o. daily. 2. History of cardiac arrest, paroxysmal A-fib, pulmonary hypertension, chronic diastolic CHF, hypothyroidism, seizure disorder, GERD, anxiety, depression, back pain are all chronic medical conditions which complicate her care. Her home medications were continued where appropriate Physical Exam Narrative General: Alert, Oriented x3, Cooperative, No apparent distress HEENT: Atraumatic, PERRLA, EOMI, Normocephalic Oral: Moist Mucosa Neck: Supple, No JVD Lungs: Diminished, Normal air movement, No rhonchi, No wheeze, No rales Cardiovascular: Regular rate, Regular Rhythm, Normal S1, Normal S2, No murmurs Abdomen: Soft, Non Tender, Non-Distended, No Hepato-splenomegaly Extremities: Bilateral lower extremity edema, Capillary Refill Less than 3 Seconds Skin: Lower extremity edema with chronic venous stasis changes, it is red without being overly warm compared to the rest of her skin Musculoskeletal: No Tenderness to Palpation of Joints or Extremities Neurological: No focal neurological deficits, Motor Exam 5/5 strength throughout, Sensory exam intact to light touch and pain Psych/Mental Status: Normal Affect, Appropriate Weight / BMI Weight Weight: 237 lb 14.06 oz Body Mass Index (BMI) 42.1 ABG / Lab / Microbiology Data 07/30/23 06:00 07/30/23 06:00 Laboratory: Laboratory Results - last 24 hr 07/29/23 17:08: POC Glucose 164 H 07/29/23 20:20: POC Glucose 188 H 07/30/23 06:00: WBC 5.1, RBC 3.34 L, Hgb 9.5 L, Hct 31.4 L, MCV 94.0, MCH 28.4, MCHC 30.3 L, RDW Std Deviation 54.5 H, RDW Coeff of Penny 16.1 H, Plt Count 101 L, MPV 10.5, Immature Gran % (Auto) 0.200, Neut % (Auto) 63.4, Lymph % (Auto) 21.9, [place] % (Auto) 10.8 H, Eos % (Auto) 3.5, Baso % (Auto) 0.2, Absolute Neuts (auto) 3.2, Absolute Lymphs (auto) 1.11, Nucleated RBC % 0, Sodium 141, Potassium 4.1, Chloride 105, Carbon Dioxide 30.0, Anion Gap 6, BUN 34 H, Creatinine 1.72 H, Estim Creat Clear Calc 39.43, Est GFR (MDRD) Af Amer 38 L, Est GFR (MDRD) Non-Af 32 L, BUN/Creatinine Ratio 19.8, Glucose 171 H, Calcium 9.2 07/30/23 06:28: POC Glucose 186 H 07/30/23 11:04: POC Glucose 154 H D/C Instructions Discharge Diet: Low fat / Low cholesterol and 6 Cup Fluid Restriction Call your doctor if you observe: Fever of 101 or Higher, Shortness of breath, Dizziness, Fainting spells, Swelling in the ankles, Chest pain and Increased palpitations (irregular heartbeat) Meaningful Use Info Meaningful Use Meaningful Use Diagnoses (Choose all that apply): None applicable Ischemic Stroke Statin Dosing Therapy Reference: STATIN DOSE THERAPY REFERENCE: * Patients > 75 years receive moderate or high dose statin therapy. * Patients 75 years or YOUNGER should receive HIGH intensity statin dose unless contraindicated. You will be required to document reason for non-treatment if statin daily dose does not meet guidelines. HIGH DOSE STATIN THERAPY DAILY Atorvastatin > than or = to 40 mg Rosuvastatin > than or = to 20 mg Amlodipine + Atorvastatin > than or = to 2.5/40 mg Ezetimibe + Simvastatin 10/80 mg Simvastatin 80mg Discharge Plan Admission Admit Date/Time: 07/27/23 20:48 Attending Provider: Ed Condon Primary Care Provider: Eric Marion [facility] Consulting Providers: Elliot Zuniga Instructions Additional Instructions / Restrictions: Follow-up with your PCP in 3 to 5 days to monitor your kidney function as well as your swelling. Discharge Orders/Prescriptions Prescriptions: New furosemide 40 mg Tablet 40 mg PO DAILY 30 Days Qty: 30 0RF Continued atorvastatin 20 mg tablet 20 mg PO DAILY Eliquis 5 mg tablet 5 mg PO BID Jardiance 10 mg tablet 10 mg PO DAILY gabapentin 300 mg capsule 300 mg PO 4X/DAY fluoxetine 40 mg capsule 40 mg PO DAILY fluticasone propionate 50 mcg/actuation spray,suspension 1 spray intranasal DAILY PRN (Reason: allergy symptoms) Patient Comments: instill 2 sprays in each nostril daily budesonide-formoterol [Symbicort] 80-4.5 mcg/actuation HFA aerosol inhaler 2 inh inhalation BID Patient Comments: INHALE TWO PUFFS BY MOUTH TWICE DAILY. RINSE MOUTH AFTER USE Ingrezza 40 mg capsule 40 mg PO DAILY albuterol sulfate 90 mcg/actuation HFA aerosol inhaler 1 inh INHALATION PRN PRN (Reason: shortness of breath or wheezing) trazodone 100 mg tablet 100 mg PO QHS Patient Comments: TAKE 1 TABLET BY MOUTH EVERY DAY AT NIGHT meloxicam 7.5 mg tablet 7.5 mg PO DAILY Patient Comments: TAKE 1 TABLET BY MOUTH EVERY DAY FOR 30DAYS ON A FULL STOMACH aripiprazole 20 mg tablet 20 mg PO QHS Patient Comments: TAKE ONE TABLET BY MOUTH DAILY AT 9AM pantoprazole 40 mg tablet,delayed release (DR/EC) 40 mg PO DAILY Qty: 30 0RF hydrocodone-acetaminophen 5-325 mg tablet 1 tab PO BID PRN PRN (Reason: pain) famotidine 20 mg tablet 20 mg PO DAILY divalproex 500 mg tablet extended release 24 hr 500 mg PO DAILY insulin glargine [Lantus Solostar U-100 Insulin] 100 unit/mL (3 mL) insulin pen 20 unit subcut DAILY levothyroxine 100 mcg tablet 100 mcg PO DAILY oxybutynin chloride 5 mg tablet extended release 24hr 5 mg PO DAILY Mounjaro 2.5 mg/0.5 mL pen injector 2.5 mg subcut QWEEK cephalexin 500 mg capsule 500 mg PO Q6 Qty: 40 0RF Rx Instructions: Complete course Discontinued furosemide [Lasix] 40 mg tablet 40 mg PO BID 10 Days Qty: 20 0RF Referrals / Follow Up: Eric Marion Pushpa, [employer] [Primary Care Provider] - 08/03/23 10:20 am Disposition Disposition (needs filled in before D/C Order can be placed): Home, Self Care Charges/Coding Visit Charges Inpatient E&M: 34712 Disch Hosp >30min
--- NOTE | 2023-07-30 13:10 | CASEMGMT ---
Patient has order for discharge. Script received for outpatient therapy. HAKEEM DELUNA in to discus needs at discharge, sister at bedside. RN REGI updated about script for outpatient. HAKEEM DELUNA was updated by that CM at [facility] was not sure of outpatient therapy at [place]. HAKEEM DELUNA discussed [facility] for outpatient therapy, patient and sister agreeable. Script provided to sister with [employer] information. Patient and sister had no further questions or concerns and denied further needs at discharge. HAKEEM DELUNA sent referral to [facility] and requested [facility] to call sister to schedule appointment.
== END 2023-07-30 13:57 | disposition home or self-care (01) | DRG 300 ==
LOC: ED 17:00 → PCU 22:25
PROVIDERS: Admitting Provider Internal Medicine; Emergency Provider Emergency Medicine; PCP Nurse Practitioner Family; Referring Provider Internal Medicine; Visit Provider Family Medicine
DX: I87.2 Venous insufficiency (chronic) (peripheral) (principal); I13.0 Hypertensive heart and chronic kidney disease with heart failure and stage 1 through stage 4 chronic kidney disease, or unspecified chronic kidney disease; J96.11 Chronic respiratory failure with hypoxia; N17.9 Acute kidney failure, unspecified; I50.32 Chronic diastolic (congestive) heart failure; Z68.41 Body mass index [BMI] 40.0-44.9, adult; F25.0 Schizoaffective disorder, bipolar type; E11.22 Type 2 diabetes mellitus with diabetic chronic kidney disease; D50.9 Iron deficiency anemia, unspecified; G40.909 Epilepsy, unspecified, not intractable, without status epilepticus; I48.0 Paroxysmal atrial fibrillation; N18.30 Chronic kidney disease, stage 3 unspecified; J44.9 Chronic obstructive pulmonary disease, unspecified; E11.40 Type 2 diabetes mellitus with diabetic neuropathy, unspecified; E66.01 Morbid (severe) obesity due to excess calories; E11.51 Type 2 diabetes mellitus with diabetic peripheral angiopathy without gangrene; Z79.4 Long term (current) use of insulin; E03.9 Hypothyroidism, unspecified; F32.A Depression, unspecified; K21.9 Gastro-esophageal reflux disease without esophagitis; I25.10 Atherosclerotic heart disease of native coronary artery without angina pectoris; M19.90 Unspecified osteoarthritis, unspecified site; M10.9 Gout, unspecified; H35.30 Unspecified macular degeneration; K58.9 Irritable bowel syndrome, unspecified; F41.9 Anxiety disorder, unspecified; E78.00 Pure hypercholesterolemia, unspecified; F17.210 Nicotine dependence, cigarettes, uncomplicated; F17.290 Nicotine dependence, other tobacco product, uncomplicated; I25.2 Old myocardial infarction; M79.604 Pain in right leg; M79.605 Pain in left leg; R60.0 Localized edema; Z99.81 Dependence on supplemental oxygen; Z79.51 Long term (current) use of inhaled steroids; Z79.1 Long term (current) use of non-steroidal anti-inflammatories (NSAID); Z79.01 Long term (current) use of anticoagulants; Z79.899 Other long term (current) drug therapy
CPT/HCPCS: 36415; 71045; 73590; 80048; 80053; 80307; 82962; 83036; 83605; 83735; 83880; 84100; 84145; 84443; 84484; 85025; 87040; 87641; 93005; 93970; 94640; 94760; 96365; 96375; 97162; 97530; 97802; 99285; 99406; J7030; J7040; J7050; P9047; A4216; J1940; J2405

== ENCOUNTER → 2023-08-26 | Outpatient (CLI) | payer MEDICARE, MEDICAID, SELFPAY ==
[2023-08-26 16:21] LABS: Absolute Lymphocyte Count 1.32 X10^3/uL (0.83-4.51); Absolute Neutrophil Count 5.9 X10^3/uL (2.0-7.7); Basophil# 0.07 X10^3/uL; Basophil% 0.8 % (0-1); Eosinophil# 0.41 X10^3/uL; Eosinophils% 4.9 % (0-5); Hematocrit 34.1 % (37-47); Hemoglobin 10.4 g/dL (12.0-15.0); Lymphocyte # 1.32 X10^3/ul (0.83-4.51); Lymphocyte % 15.7 % (19-41); Mean Corp Hgb Conc 30.5 g/dL (32-36); Mean Corpuscular Hgb 27.8 pg (27.0-32.0); Mean Corpuscular Volume 91.2 fL (81-99); Mean Platelet Vol. 10.3 fl (6.2-12.0); Monocyte# 0.65 X10^3/uL; Monocyte% 7.7 % (0-10); NRBC Flagged by Analyzer 0 % (0-5); Neutrophil # 5.92 X10^3/uL (2.7-7.7); Neutrophil % 70.5 % (47-70); Platelet Count 147 K/mm3 (150-450); RBC Distribution Width CV 15.1 % (11.6-14.6); RBC Distribution Width SD 50.6 fl (35.1-43.9); Red Blood Count 3.74 M/mm3 (4.2-5.4); White Blood Count 8.4 K/mm3 (4.4-11.0)
[2023-08-26 16:55] LABS: BNP,B-Type NATRIURETIC PEPTIDE 109.1 pg/mL (0-100)
[2023-08-26 16:59] LABS: AST(SGOT) 15 U/L (15-37); Alanine Aminotransfer ALT/SGPT 18 U/L (13-56); Albumin, Serum 3.3 g/dL (3.2-5.0); Alkaline Phosphatase 62 U/L (45-117); Anion Gap 5 (5-15); BUN 21 mg/dL (7-18); BUN/Creat Ratio 15.2 RATIO (10-20); Calcium,Total 9.1 mg/dL (8.5-10.1); Chloride 105 mmol/L (98-107); Creatinine, Serum 1.38 mg/dL (0.55-1.02); EST Glomerular Filtration Rate 41 mL/min (>60); Est Glom Filt Rate - Afr Amer 50 mL/min (>60); Globulin 3.3 g/dL (2.2-4.2); Glucose 139 mg/dL (74-106); Potassium 4.6 mmol/L (3.5-5.1); Protein, Total 6.6 g/dL (6.4-8.2); Sodium Level 138 mmol/L (136-145)
== END | disposition home or self-care (01) ==
LOC: VSLAB 15:05
PROVIDERS: PCP Nurse Practitioner Family; Visit Provider Nurse Practitioner Family
DX: E11.9 Type 2 diabetes mellitus without complications (principal); I50.9 Heart failure, unspecified
CPT/HCPCS: 36415; 80053; 83880; 85025

== ENCOUNTER → 2023-09-01 | Outpatient (CLI) | payer MEDICARE, MEDICAID, SELFPAY ==
[2023-09-01 12:28] LABS: Anion Gap 5 (5-15); BUN 26 mg/dL (7-18); BUN/Creat Ratio 17.1 RATIO (10-20); Calcium,Total 9.6 mg/dL (8.5-10.1); Chloride 105 mmol/L (98-107); Creatinine, Serum 1.52 mg/dL (0.55-1.02); EST Glomerular Filtration Rate 37 mL/min (>60); Est Glom Filt Rate - Afr Amer 44 mL/min (>60); Glucose 155 mg/dL (74-106); Potassium 4.5 mmol/L (3.5-5.1); Sodium Level 140 mmol/L (136-145)
[2023-09-01 12:44] LABS: Absolute Neutrophil Count 5.9 X10^3/uL (2.0-7.7); Basophil# 0.06 X10^3/uL; Basophil% 0.7 % (0-1); Eosinophil# 0.42 X10^3/uL; Eosinophils% 5.1 % (0-5); Hematocrit 35.5 % (37-47); Hemoglobin 10.9 g/dL (12.0-15.0); Lymphocyte % 13.4 % (19-41); Mean Corp Hgb Conc 30.7 g/dL (32-36); Mean Corpuscular Volume 91.3 fL (81-99); Mean Platelet Vol. 10.1 fl (6.2-12.0); Monocyte% 8.6 % (0-10); NRBC Flagged by Analyzer 0 % (0-5); Neutrophil # 5.87 X10^3/uL (2.7-7.7); Neutrophil % 71.8 % (47-70); Platelet Count 167 K/mm3 (150-450); RBC Distribution Width CV 15.3 % (11.6-14.6); RBC Distribution Width SD 51.7 fl (35.1-43.9); Red Blood Count 3.89 M/mm3 (4.2-5.4); White Blood Count 8.2 K/mm3 (4.4-11.0)
== END | disposition home or self-care (01) ==
LOC: VSLAB 10:45
PROVIDERS: PCP Nurse Practitioner Family; Visit Provider Nurse Practitioner Family
DX: I50.9 Heart failure, unspecified (principal)
CPT/HCPCS: 36415; 80048; 85025

== ENCOUNTER 2023-09-03 09:24 | Emergency (ER) | payer MEDICARE, MEDICAID, SELFPAY ==
[2023-09-03] VITALS (7 sets, daily range): BP systolic 110–133; BP diastolic 74–110; PULSE 64–82; RESP 14–18; TEMP 36.4; O2SAT 94–100; BMI 40.7
--- NOTE | 2023-09-03 09:56 | EKG12_ITS ---
Test Reason : CP Blood Pressure : / mmHG Vent. Rate : 065 BPM Atrial Rate : 065 BPM P-R Int : 164 ms QRS Dur : 082 ms QT Int : 396 ms P-R-T Axes : 044 040 042 degrees QTc Int : 411 ms Sinus rhythm with Premature supraventricular complexes Otherwise normal ECG BASELINE ARTIFACT Confirmed by Nicho Mcgraw ([id number]), online content editor CHINTAN KHAN ([id number]) on 09/06/2023 8:13:17 AM Referred By: JESSICA Confirmed By:Nicho Mcgraw
--- NOTE | 2023-09-03 09:58 | EDS_ITS ---
HPI History of Present Illness Chief Complaint: Chest Pain Informant: patient Onset/Context/Timing Onset: Days (4) Activity at onset: gradual Timing: Continuous Quality: Positive for Heaviness and Sharp Location: Left Chest Worsened By: Movement of Arm and Movement of Torso Relieved By: Nothing Associated Symptoms: Positive for Cough and Acid Reflux; Negative for Nausea, Vomiting, Diaphoresis, Dyspnea, Fever, Lightheadedness or Palpitations Narrative Narrative: Patient presents with chest pain that has been constant for the past 4 days. Patient states it has gradually gotten worse. Patient states it is over the left side of her chest. Patient denies any radiation of the pain. Patient states it is worse with movement of her left arm and with movement of her torso. Patient states nothing seems to help with the pain. Patient denies any fevers or chills. Patient admits to a cough but denies any shortness of breath. Patient denies any nausea or vomiting. Patient denies any diaphoresis. 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 Chest pain History of cardiac arrest Chronic kidney disease Diverticulitis large intestine w/o perforation or abscess w/bleeding Abdominal ascites Pulmonary hypertension, secondary Acute hypotension History of COPD History of diabetes mellitus, type II Bradycardia Chest pain of uncertain etiology History of hypertension History of atrial fibrillation History of CHF (congestive heart failure) Peripheral edema Congestive heart failure Morbid obesity with BMI of 40.0-44.9, adult Pericardial effusion with cardiac tamponade Wears glasses Wears dentures Substance abuse Alcohol use Rash Gout High cholesterol PVD (peripheral vascular disease) Easy bruising Seizures Dietary restriction Gastric reflux Injury of back Vapes nicotine containing substance Fall History of pain when walking History of edema Insomnia Major depression On home oxygen therapy Emphysema, unspecified Neuropathy Cardiology follow-up encounter History of ulceration DKA (diabetic ketoacidosis) Cardiac arrest Lichen sclerosus Macular degeneration Essential hypertension Decreased left ventricular function Paroxysmal atrial fibrillation Diverticulosis Migraine Iron deficiency anemia COPD (chronic obstructive pulmonary disease) CHF (congestive heart failure) Neuropathy Kidney failure Hypothyroid Schizoaffective disorder, bipolar type Emphysema lung Diabetes Heart attack Home Medications ?Medication ?Instructions ?Recorded ?Last Taken ?Type apixaban 5 mg tablet (Eliquis) 5 mg PO BID a. fib. 12/24/22 07/27/23 History atorvastatin 20 mg tablet 20 mg PO DAILY cholesterol 12/24/22 07/27/23 History empagliflozin 10 mg tablet 10 mg PO DAILY diabetes 12/24/22 07/27/23 History (Jardiance) gabapentin 300 mg capsule 300 mg PO 4X/DAY 12/25/22 07/27/23 History albuterol sulfate 90 mcg/actuation 1 inh inhalation PRN PRN shortness 12/31/22 Unknown History aerosol inhaler of breath or wheezing meloxicam 7.5 mg tablet 7.5 mg PO DAILY 01/01/23 07/27/23 History trazodone 100 mg tablet 100 mg PO QHS 01/01/23 07/26/23 History aripiprazole 20 mg tablet 20 mg PO QHS mental health 03/09/23 07/26/23 History pantoprazole 40 mg tablet,delayed 40 mg PO DAILY #30 tabs 03/09/23 07/27/23 Rx release budesonide-formoterol HFA 80 2 inh inhalation BID breathing 04/27/23 07/27/23 History mcg-4.5 mcg/actuation aerosol inhaler (Symbicort) fluoxetine 40 mg capsule 40 mg PO DAILY 04/27/23 07/27/23 History fluticasone propionate 50 1 spray intranasal DAILY PRN 04/27/23 Unknown History mcg/actuation nasal allergy symptoms spray,suspension valbenazine 40 mg capsule 40 mg PO DAILY 04/27/23 07/27/23 History (Ingrezza) divalproex 500 mg tablet,extended 500 mg PO DAILY 07/25/23 07/27/23 History release 24 hr famotidine 20 mg tablet 20 mg PO DAILY 07/25/23 07/27/23 History hydrocodone-acetaminophen 5-325mg 1 tab PO BID PRN PRN pain 07/25/23 Unknown History 5mg-325mg insulin glargine 100 unit/mL (3 20 unit subcut DAILY 07/25/23 07/27/23 History mL) subcutaneous pen (Lantus Solostar U-100 Insulin) levothyroxine 100 mcg tablet 100 mcg PO DAILY 07/25/23 07/27/23 History oxybutynin chloride 5 mg 5 mg PO DAILY 07/25/23 07/27/23 History tablet,extended release 24 hr tirzepatide 2.5 mg/0.5 mL 2.5 mg subcut QWEEK 07/25/23 07/24/23 History subcutaneous pen injector (Mounjaro) cephalexin 500 mg capsule 500 mg PO Q6 #40 CAPSULES 07/30/23 07/27/23 Rx furosemide 40 mg tablet 40 mg PO DAILY 30 days #30 tabs 07/30/23 Unknown Rx tiotropium bromide 2.5 2 inh inhalation QDAY #1 ea 08/27/23 Unknown Rx mcg/actuation mist for inhalation (Spiriva Respimat) Allergy/AdvReac Type Severity Reaction Status Date / Time aspirin Allergy Mild Hives Verified 09/03/23 09:25 erythromycin base Allergy Mild Hives Verified 09/03/23 09:25 Penicillins Allergy Mild Hives Verified 09/03/23 09:25 polyethylene glycol 3350 Allergy Mild Nausea/Vom/ Verified 09/03/23 09:25 (From Miralax) Diarrhea tramadol Allergy Mild Hives Verified 09/03/23 09:25 tomato Allergy Food Verified 09/03/23 09:25 Allergy Family History Mother Heart disease Hypertension Cancer Father Brain aneurysm age 40 CVA (cerebral vascular accident) Cancer Brother Colon cancer Surgical History Hx of vein stripping Hx of toe surgery History of lithotripsy History of delivery History of bilateral cataract extraction History of cholecystectomy H/O: hysterectomy Social History Smoking Status: Current every day smoker tobacco type: cigarettes and e- cigarettes Tobacco: How many years used: 18 Electronic Cigarette Use: with nicotine second hand exposure: No alcohol intake: never substance use type: does not use caffeine: Yes ROS ROS ED Constitutional Constitutional ED: Denies chills or fever(s) Eyes Eyes: Denies blurry vision or change in vision ENT ENT ED: Denies rhinorrhea or sore throat Cardiovascular Cardiovascular: Reports chest pain; Denies palpitations Respiratory/Chest Respiratory/Chest: Reports cough; Denies dyspnea Gastrointestinal Gastrointestinal: Denies nausea or vomiting Genitourinary Genitourinary ED: Denies dysuria or hematuria Musculoskeletal Musculoskeletal: Reports back pain; Denies neck pain Integumentary Denies abscess or rash Neurologic Neurologic: Reports headache(s); Denies weakness Allergic/Immunologic Allergic/Immunologic ED: Denies mouth swelling or urticaria EXAM Physical Exam Const Vital Signs: 09/03/23 09:25 09/03/23 09:34 09/03/23 09:57 Temperature 97.6 F L Temperature Source Temporal Pulse Rate 64 Respiratory Rate 18 Respiratory Effort Short of Breath Blood Pressure 131/110 H Blood Pressure Mean 117 Pulse Ox 96 100 Oxygen Delivery Method Room Air Oxygen Flow Rate (L/min) 09/03/23 10:25 09/03/23 10:34 09/03/23 10:34 Temperature Temperature Source Pulse Rate 82 69 Respiratory Rate 18 16 Respiratory Effort Blood Pressure 133/106 H Blood Pressure Mean 115 Pulse Ox 94 97 Oxygen Delivery Method Room Air Room Air Oxygen Flow Rate (L/min) 09/03/23 11:00 09/03/23 12:00 Temperature Temperature Source Pulse Rate 82 81 Respiratory Rate 16 14 Respiratory Effort Blood Pressure 118/74 110/91 H Blood Pressure Mean 88 97 Pulse Ox 98 99 Oxygen Delivery Method Room Air Nasal Cannula Oxygen Flow Rate (L/min) 2 Positive well nourished and well developed General Appearance ED: well developed and NAD HEENT Reports moist mucous membranes Neck supple and no JVD Resp normal respiratory effort Auscultation: wheezes expiratory wheezes (Mild) Cardio regular rate and regular rhythm GI soft to palpation, non-tender and non-distended Extremity General Extremety ED: Negative for tenderness Neuro oriented x3, CN's II-XII intact bilaterally and no sensory deficits noted Sensorium / Orientation: awake and alert Motor Exam: strength 5/5 throughout Psych mental status grossly normal Heart Score History: Slightly/Non-Suspicious ECG: Normal Age: >45 - <65 years Risk Factors: >/= 3 Risk Factors or History of CAD Troponin: </= Normal Limit Score: 3 MDM MDM MDM Narrative Medical decision making narrative: Differential diagnosis includes cardiac dysrhythmia, cardiac ischemia, pneumonia, pneumothorax, GERD, musculoskeletal pain, congestive heart failure, COPD exacerbation, and anxiety. EKG will be obtained to assess for cardiac dysrhythmia and cardiac ischemia. Chest x-ray will be obtained to assess for pneumonia, congestive heart failure, COPD, and pneumothorax. CBC will be obtained to assess for leukocytosis and anemia. Basic metabolic profile will be obtained to assess for electrolyte abnormality and renal function. High- sensitivity troponin will be obtained to assess for cardiac ischemia. BNP will be obtained to assess for congestive heart failure. Patient does not have any PE risk factors. Patient is on Eliquis. I do not feel this is from a pulmonary embolism. History & Record Review Additional record(s) reviewed:: Prior labs Lab Data Attestation: I reviewed the patient's lab results. Lab results narrative: CBC was reviewed. There is a mild anemia with a hemoglobin of 11.1 and hematocrit 36.1. The remainder is within normal limits. Basic metabolic profile was reviewed. BUN was slightly elevated at 23 and creatinine was slightly elevated at 1.43. These are consistent with previous results. Initial high-sensitivity troponin was reviewed and was normal at 5. BNP was reviewed and was normal at 44.8. 2-hour repeat high-sensitivity troponin was reviewed and was normal at 7. Labs: Laboratory Results - last 24 hr 09/03/23 09/03/23 09:41 12:20 WBC 9.5 RBC 4.01 L Hgb 11.1 L Hct 36.1 L MCV 90.0 MCH 27.7 MCHC 30.7 L RDW Std Deviation 49.8 H RDW Coeff of Penny 15.1 H Plt Count 176 MPV 10.0 Immature Gran % (Auto) 0.400 Neut % (Auto) 72.1 H Lymph % (Auto) 13.0 L [place] % (Auto) 8.5 Eos % (Auto) 5.4 H Baso % (Auto) 0.6 Absolute Neuts (auto) 6.8 Absolute Lymphs (auto) 1.23 Nucleated RBC % 0 Sodium 141 Potassium 4.1 Chloride 103 Carbon Dioxide 32.0 Anion Gap 6 BUN 23 H Creatinine 1.43 H Estim Creat Clear Calc 46.53 Est GFR (MDRD) Af Amer 48 L Est GFR (MDRD) Non-Af 39 L BUN/Creatinine Ratio 16.1 Glucose 112 H Calcium 9.3 Troponin I High Sens 5 7 B-Natriuretic Peptide 44.8 Radiography Chest X-Ray - ED: 1 View, Read by ED Physician, Read by Radiologist and No Acute Disease Diagnostic Testing: Clinical Impression(s) from Imaging Studies Chest X-Ray 09/03/23 10:00 IMPRESSION: Stable chest with no acute superimposed finding. Electronically Signed: Jamaal Thompson MD at 10:24 EDT Reading Location ID and State: [address] [place] [address] , Service support , Portable 1 view chest x-ray was obtained. On my independent interpretation, l nicholas boyd are clear. There is normal cardiac silhouette. Bony thorax is normal. There is no acute process noted. Radiologist also interpreted the x- ray and agrees. EKG Initial EKG: Attestation: I personally reviewed and interpreted this EKG as follows: Interpretation: Sinus Rhythm (65) and No Acute Injury Pattern Comments: EKG was obtained. On my independent interpretation, it showed a normal sinus rhythm with occasional PACs with a rate of 65. SC interval, QRS interval, and QTc intervals were all normal. [place] was normal. There are no acute ST or T wave changes. Prior EKG tracings: available for review Prior: Unchanged (07/27/2023) Treatment and Re-Evaluation :: Patient is allergic to aspirin so this was withheld. Patient was given a dose of morphine and Zofran here. Patient was given a DuoNeb aerosol. Smoking cessation was discussed. Patient was feeling better on reevaluation. Patient was sleeping on reevaluation. Patient was advised of her findings. Patient has a HEART score of 3. Patient was advised that this is low risk for acute cardiac event. Patient was instructed to use Tylenol or ibuprofen as needed for any pain. Patient was instructed to follow-up with her primary care physician in 5 to 7 days. Patient understood and was agreeable with the plan. All questions were answered. Discharge Plan Triage Chief Complaint: Chest Pain ED Provider: Goldy Thomas Dx/Rx/DC Orders Clinical Impression: Chest pain, Diabetes, Smoking greater than 20 pack years Instructions: ED Chest Pain, Uncertain Cause Prescriptions: No Action atorvastatin 20 mg tablet 20 mg PO DAILY Eliquis 5 mg tablet 5 mg PO BID Jardiance 10 mg tablet 10 mg PO DAILY gabapentin 300 mg capsule 300 mg PO 4X/DAY fluoxetine 40 mg capsule 40 mg PO DAILY fluticasone propionate 50 mcg/actuation spray,suspension 1 spray intranasal DAILY PRN (Reason: allergy symptoms) Patient Comments: instill 2 sprays in each nostril daily budesonide-formoterol [Symbicort] 80-4.5 mcg/actuation HFA aerosol inhaler 2 inh inhalation BID Patient Comments: INHALE TWO PUFFS BY MOUTH TWICE DAILY. RINSE MOUTH AFTER USE Ingrezza 40 mg capsule 40 mg PO DAILY Spiriva Respimat 2.5 mcg/actuation mist 2 inh inhalation QDAY Qty: 1 6RF Rx Instructions: administer at approximately the same time(s) each day albuterol sulfate 90 mcg/actuation HFA aerosol inhaler 1 inh INHALATION PRN PRN (Reason: shortness of breath or wheezing) trazodone 100 mg tablet 100 mg PO QHS Patient Comments: TAKE 1 TABLET BY MOUTH EVERY DAY AT NIGHT meloxicam 7.5 mg tablet 7.5 mg PO DAILY Patient Comments: TAKE 1 TABLET BY MOUTH EVERY DAY FOR 30DAYS ON A FULL STOMACH aripiprazole 20 mg tablet 20 mg PO QHS Patient Comments: TAKE ONE TABLET BY MOUTH DAILY AT 9AM pantoprazole 40 mg tablet,delayed release (DR/EC) 40 mg PO DAILY Qty: 30 0RF hydrocodone-acetaminophen 5-325 mg tablet 1 tab PO BID PRN PRN (Reason: pain) famotidine 20 mg tablet 20 mg PO DAILY divalproex 500 mg tablet extended release 24 hr 500 mg PO DAILY insulin glargine [Lantus Solostar U-100 Insulin] 100 unit/mL (3 mL) insulin pen 20 unit subcut DAILY levothyroxine 100 mcg tablet 100 mcg PO DAILY oxybutynin chloride 5 mg tablet extended release 24hr 5 mg PO DAILY Mounjaro 2.5 mg/0.5 mL pen injector 2.5 mg subcut QWEEK furosemide 40 mg Tablet 40 mg PO DAILY 30 Days Qty: 30 0RF cephalexin 500 mg capsule 500 mg PO Q6 Qty: 40 0RF Rx Instructions: Complete course Primary Care Provider: Eric Marion Referrals: Eric Marion, [facility] [Primary Care Provider] - 5-7 Days Print Language: Sri L[place]an Disposition Disposition: Home, Self Care
--- NOTE | 2023-09-03 10:00 | RAD_ITS ---
STUDY: X-RAY CHEST REASON FOR EXAM: Female, 62 years old. Chest pain. TECHNIQUE: Single frontal view of the chest. COMPARISON: July 27, 2023 FINDINGS: Several right internal jugular catheter. Mild diffuse interstitial prominence, unchanged. There is no demonstrated pleural abnormality. Stable borderline cardiomegaly. Normal mediastinum and jeannie. Normal visualized pulmonary arteries. Normal visualized aortic arch and descending thoracic aorta. No abnormality of the visualized soft tissue structures of the upper abdomen. RAD/Chest 1 View (Portable) IMPRESSION: Stable chest with no acute superimposed finding. Electronically Signed: Jamaal Thompson MD at 10:24 EDT ,
[2023-09-03 10:05] LABS: Absolute Lymphocyte Count 1.23 X10^3/uL (0.83-4.51); Absolute Neutrophil Count 6.8 X10^3/uL (2.0-7.7); Basophil# 0.06 X10^3/uL; Basophil% 0.6 % (0-1); Eosinophil# 0.51 X10^3/uL; Eosinophils% 5.4 % (0-5); Hematocrit 36.1 % (37-47); Hemoglobin 11.1 g/dL (12.0-15.0); Lymphocyte # 1.23 X10^3/ul (0.83-4.51); Mean Corp Hgb Conc 30.7 g/dL (32-36); Mean Corpuscular Hgb 27.7 pg (27.0-32.0); Monocyte# 0.81 X10^3/uL; Monocyte% 8.5 % (0-10); NRBC Flagged by Analyzer 0 % (0-5); Neutrophil # 6.83 X10^3/uL (2.7-7.7); Neutrophil % 72.1 % (47-70); Platelet Count 176 K/mm3 (150-450); RBC Distribution Width CV 15.1 % (11.6-14.6); RBC Distribution Width SD 49.8 fl (35.1-43.9); Red Blood Count 4.01 M/mm3 (4.2-5.4); White Blood Count 9.5 K/mm3 (4.4-11.0)
[2023-09-03 10:20] LABS: Anion Gap 6 (5-15); BUN 23 mg/dL (7-18); BUN/Creat Ratio 16.1 RATIO (10-20); Calcium,Total 9.3 mg/dL (8.5-10.1); Chloride 103 mmol/L (98-107); Creatinine, Serum 1.43 mg/dL (0.55-1.02); EST Glomerular Filtration Rate 39 mL/min (>60); Est Glom Filt Rate - Afr Amer 48 mL/min (>60); Estimated Creatinine Clearance 46.53 ml/min; Glucose 112 mg/dL (74-106); Potassium 4.1 mmol/L (3.5-5.1); Sodium Level 141 mmol/L (136-145); Troponin-I HS (w/2H Reflex) 5 pg/mL (3.0-54.0)
[2023-09-03] MEDS: Ipratropium/Albuterol Sulfate 3 ML AMPUL.NEB INHALATION (10:34)
[2023-09-03] MEDS: Ondansetron 4 MG/2 ML Vial IV (10:36)
[2023-09-03] MEDS: Morphine 4 MG/ML Syringe IV (10:36)
[2023-09-03 11:15] LABS: BNP,B-Type NATRIURETIC PEPTIDE 44.8 pg/mL (0-100)
[2023-09-03 12:00] LABS: Reflex Troponin-HS? (from REC) Y
[2023-09-03 12:49] LABS: Troponin-I HS 7 pg/mL (3.0-54.0)
== END 2023-09-03 13:33 | disposition home or self-care (01) ==
PROVIDERS: Emergency Provider Emergency Medicine; PCP Nurse Practitioner Family; Visit Provider Emergency Medicine
DX: R07.9 Chest pain, unspecified (principal); I13.0 Hypertensive heart and chronic kidney disease with heart failure and stage 1 through stage 4 chronic kidney disease, or unspecified chronic kidney disease; I50.9 Heart failure, unspecified; J43.9 Emphysema, unspecified; E11.22 Type 2 diabetes mellitus with diabetic chronic kidney disease; N18.9 Chronic kidney disease, unspecified; F17.210 Nicotine dependence, cigarettes, uncomplicated; E78.00 Pure hypercholesterolemia, unspecified; F17.290 Nicotine dependence, other tobacco product, uncomplicated; R51.9 Headache, unspecified
CPT/HCPCS: 71045; 80048; 83880; 84484; 85025; 93005; 94640; 96374; 96375; 99284; A4216; J2405

== ENCOUNTER → 2023-09-08 | Outpatient (CLI) | payer MEDICARE, MEDICAID, SELFPAY ==
[2023-09-08 17:21] LABS: Albumin, Serum 3.2 g/dL (3.2-5.0); BUN 32 mg/dL (7-18); Calcium,Total 9.2 mg/dL (8.5-10.1); Chloride 102 mmol/L (98-107); Creatinine, Serum 1.88 mg/dL (0.55-1.02); EST Glomerular Filtration Rate 29 mL/min (>60); Est Glom Filt Rate - Afr Amer 35 mL/min (>60); Glucose 105 mg/dL (74-106); Phosphorus 3.1 mg/dL (2.5-4.9); Potassium 4.2 mmol/L (3.5-5.1); Sodium Level 137 mmol/L (136-145)
[2023-09-08 17:57] LABS: Protein, Urine (Random) < 6.0 mg/dL (<11.9)
[2023-09-13 15:08] LABS: Anti-dsDNA Ab <1 IU/mL (0-9)
[2023-09-13 16:09] LABS: Complement C3 132 mg/dL (82-167); Cytoplasmic Ab (C-ANCA) <1:20 titer (Neg:<1:20); PROEL- A/G Ratio 1.4 (0.7-1.7); PROEL- Albumin 3.5 g/dL (2.9-4.4); PROEL- Alpha-1 Globulin 0.2 g/dL (0.0-0.4); PROEL- Alpha-2 Globulin 0.8 g/dL (0.4-1.0); PROEL- Beta Globulin 0.9 g/dL (0.7-1.3); PROEL- Gamma Globulin 0.7 g/dL (0.4-1.8); PROEL- Globulin, Total 2.5 g/dL (2.2-3.9); PROEL-M-Spike Not Observed g/dL (Not Observed); Perinuclear Ab (P-ANCA) <1:20 titer (Neg:<1:20)
== END | disposition home or self-care (01) ==
LOC: VSLAB 13:41
PROVIDERS: PCP Nurse Practitioner Family; Visit Provider Internal Medicine Nephrology
DX: N18.32 Chronic kidney disease, stage 3b (principal)
CPT/HCPCS: 36415; 80069; 82570; 84156; 84165; 86160; 86225; 86256

== ENCOUNTER 2023-09-14 15:30 | Outpatient (RCR) | payer MEDICARE, MEDICAID, SELFPAY ==
--- NOTE | 2023-08-12 15:02 | HP.PTEVAL ---
Patient's Visit Information Visit Information Visit Information: JADE SWANSON is a 62 year old F referred to Physical Therapy by Dr. Ed Condon MD with a diagnosis of Weakness. Date of Evaluation: 08/12/23 Physical Therapist: Cate Zacarias DPT Visit Plan Frequency: 2x /Week Duration: 4 Weeks Plan: Focus on LE and core strength/stabilization, proprioception and functional mobility Subjective Subjective: Patient reports that she was in the hospital for cellulitis and lymphedema- and so they wanted her to come to PT/OT- that was in the past month. She lives by herself- she does not have stairs she uses the elevator at [facility] with no stairs to enter. She is able to do her own dressing but she is unable to wash her back or do her hair. Her sister comes in to help and a home health aid will start to come in and help as well. She has neuropathy throughout her body so she has no pain just weakness. She uses a rollator in her home at all times. Her sister takes her shopping and she then uses the motorized cart. She can walk from the parking lot in with rollator and then she motorized cart. Last time she fell was a few months ago. Sleep: insomnia. She does get back injections by Dr. Sarmiento. Last one was last month- it depends on how often she gets them. She has back pain all the time. Worst: 8/10 Best: 6/10. Reports that the pain is dull and achy. The pain is in the low back (L4-L5) but does not radiate. Her sister transports her. Goals: to strengthen her legs- She does exercises at home- her activity is limited due to not having a vehicle. She was suppose to have braces when she was little but her step mother didn't keep them on her. PMHx/Meds: see list in chart Objective Objective: Posture: forward head, rounded shoulders- can correct but is unable to maintain Gait: antalgic- toes turned out- decreased stride length- forward posture- rollator Balance: weight shift only-poor HR/TR: able in sitting but unable in standing ROM: WFL in LE Strength: Core: poor, Right: Hip: 3+/5, Knee: 4+/5, Ankle:3+/5, Left: Hip: 4-/5, Knee: 4/5, Ankle: 3+/5 Flex: HS: severe, Gastroc: moderate right leg is weaker Balance/Special Test Scores Lower Extremity Functional Score: 27 30 Second Chair Rise Test Seconds: 5 Goals Goal 1:: Patient will be I with HEP and progression Goal Time Frame: 4-6 Weeks Goal 2:: Patient will perform sit to stands for 30 seconds and perform 8 Goal Time Frame: 4-6 Weeks Goal 3:: Patient will ambulate >150 feet with LRD and good technique Goal Time Frame: 4-6 Weeks Goal 4:: Patient will report 80% improvement Goal Time Frame: 4-6 Weeks Goal 5:: Patient will maintain proper posture t.o to demo increased core s/s Goal Time Frame: 4-6 Weeks Rehabilitation Potential Physical Therapy Diagnosis: Patient presents with hypomobility- she has decreased LE and core strength/stabilization, proprioception, flex and muscular endurance leading to abnormal gait, balance and increased pain with ADL's. Rehabilitation Potential: Fair Anticipated Interventions Patient/Client Instruction: Educate patient on: Benefits of Fitness Program Therapeutic Exercise to Include: Strength training, Endurance training, Balance training, Coordination, Agility training, Body mechanics, Postural training, Flexibilty training, Gait and locomotor training, Neuromotor development, Dynamic Lumbar Stabilization and Scapular Strength/Stabilization For the Purpose of:: To improve muscle performance and motor function Text: Thank you for the opportunity to evaluate your patient. For Medicare and Medicare HMO plans, please review the plan of care and approve it. It will need to be FAXED BACK to us at [phone] for Medicare purposes. For Medicare only, by signing this I certify the plan of care. Please let me know if there are questions or concerns regarding this plan of care. Physician Signature: Date:
--- NOTE | 2023-08-12 15:53 | HP.OTEVAL ---
Patient's Visit Information Visit Information Visit Information: JADE SWANSON is a 62 year old F, referred to Occupational Therapy by Dr. Ed Condon MD, with a diagnosis of weakness/ CHF I50.9, COPD. Date of Evaluation: 08/12/23 Occupational Therapist: Susana Montenegro Subjective Subjective: This 62 year old female referred to OT services due to weakness, CHF as well as COPD. This female states she feels her upper body is de conditioned and could use some work. Pt reports increased difficulty with house cleaning and tying hair up. Pt states she has increased difficulty breathing when doing sustained tasks. Per pt she fell from steps approx 1 year ago and messed up L4 and L5. Pt does go to get shots in back for pain per pt they help for a couple days. pt is R hand dominant. Pain lower back: Current Pain Intensity: 8 ROM Shoulder: wfl Elbow: wfl Forearm: wfl Wrist: wfl CMC: wfl MP: wfl IP: wfl Radial Abduction: wfl Palmar Abduction: wfl Opposition: wfl MP: wfl PIP: wfl DIP: wfl Strength Shoulder: L 6.8 pounds R 4 pounds Elbow: L 9.2 pounds R 11 pounds Debone Processing Supervisor: L 20 pounds R 10 pounds Lateral Pinch: L 0 pounds R 0 pounds Tripod Pinch: L 0 pounds R 0 pounds Strength Comments: Pt reports it feels tight during intrinsic stretch to L hand Sensation Sensation Comments: neuropathy throughout my body L and R side do feel different when touched semmi monofilament 3.61 Nine Hole Peg Right: 45 Left: 1 min 1 sec Comments: does tremor is on medication In-Hand Manipulation Finger to Palm Translation: Unable - Right and Unable - Left Palm to Finger Translation: Unable - Right and Unable - Left Quick DASH-Disab of Arm,Shoulder& Hand Quick DASH Score: 45.4525 Goals Goal:: pt will increase L shoulder flexion strength to 15-20 pounds or more for improved I in household responsibilities pt will increase R shoulder flexion strength to 15-20 pounds or more for improved I in household responsibilities pt will increase L elbow flexion strength to 20- 25 pounds or more for improved I in household responsibilities pt will increase R elbow flexion strength to 20-25 pounds or more for improved I in household responsibilities Pt will increase L marine safety officer strength to 30 pounds or more for improved I in household responsibilities Pt will increase R marine safety officer strength to 25-30 pounds or more for improved I in household responsibilities pt will increase L and R lateral as well as tripod pinch strength to 5 pounds for improved I in household responsibilities Goal:: Pt will increase 9 hole peg score R hand to 35 sec or less for improved I in small item management pt will increase 9 hole peg score of L hand to 40 sec or less for improved I in small item management Goal:: Pt will verbalize/ demonstrate 100% accuracy in UE positioning during all functional tasks to assure proper joint integrity Goal:: pt will improve quick dash score by 20 points or more (45.45 at eval) for improved overall functional use of UEs throughout the day Goal:: pt will be SC in all hair care including tying up into pony tail by discharge Rehabilitation General Assessment: This 62 year old female arrives this date with dx of weakness CHF as well as COPD. pt reports main symptom is weakness and decreased aerobic capacity. 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 pt with impairments in FMC dexterity abilities. pt reports having trouble with house hold responsibilies as a result. pt would benefit from OT at this time x1 a week for 30 min to address strength as well as coordination. Rehabilitation Potential: Good Anticipated Interventions Anticipated Interventions: A/AAROM/PROM, Strengthening, Joint Protection/Energy Conservation, Fine Motor Coord/Harrison, Education re assistive Equipment, Education re Diagnosis and Home Program Visit Plan Frequency: 1x/Week Duration: 6 Weeks General Plan: AROM/AAROM/PROM strengthening training in joint positioning and protection FMC/dexterity TEXT: Thank you for the opportunity to evaluate your patient. For Medicare and Medicare HMO plans, please review the plan of care and approve it. It will need to be FAXED BACK to us at [phone] for Medicare purposes. Please let me know if there are questions or concerns regarding this plan of care. Physician Signature: Date:
--- NOTE | 2023-09-14 16:02 | HP.PTDCSUM ---
Discharge Summary D/C summary: It has been my pleasure to treat JADE SWANSON referred by Dr. Ed Condon MD, with the diagnosis of Weakness for a total of 8 visit(s). Discharge Date: Please see the following information for a summary of their discharge status. Subjective Subjective: L4-L5 are hurting- she had a bad fall last year and she is still hurting from it. She is using the rollerator at home and then the motorized carts when she is in the store. Worst: 7/10- thats a normal pain level for her. Pain LB: Pain Intensity (Out of 10): 7 Overall Improvement % Improvement: 0 Objective Objective/Function: Posture: forward head, rounded shoulders- can correct but is unable to maintain Gait: antalgic- toes turned out- decreased stride length- forward posture- rollator Balance: weight shift only-poor HR/TR: able in sitting but unable in standing ROM: WFL in LE Strength: Core: poor, Right: Hip: 3+/5, Knee: 4+/5, Ankle:3+/5, Left: Hip: 4-/5, Knee: 4/5, Ankle: 3+/5 Flex: HS: severe, Gastroc: moderate Goals Goal 1:: Patient will be I with HEP and progression Goal Progress: Goal Met Goal 2:: Patient will perform sit to stands for 30 seconds and perform 8 Goal Progress: Not Progressing Goal 3:: Patient will ambulate >150 feet with LRD and good technique Goal Progress: Not Progressing Goal 4:: Patient will report 80% improvement Goal Progress: Not Progressing Goal 5:: Patient will maintain proper posture t.o to demo increased core s/s Goal Progress: Not Progressing Plan Plan: Discharge to independent home exercise home program per patient request. Focus on LE and core strength/stabilization, proprioception and functional mobility D/C Information d/c sentence: If there are questions or concerns regarding this patient's physical therapy, please feel free to call me at [phone]. Thank you for the referral of this patient. Sincerely, Cate Zacarias, DPT Balance/Gait/Functional tests Balance/Special Test Scores Lower Extremity Functional Score: 1 30 Second Chair Rise Test Seconds: 5 Improvement % Improvement: 0
== END 2023-09-14 19:00 | disposition home or self-care (01) ==
LOC: PT 15:30
PROVIDERS: PCP Nurse Practitioner Family; Referring Provider Family Medicine; Visit Provider Family Medicine
DX: R53.1 Weakness (principal); I50.9 Heart failure, unspecified; J44.9 Chronic obstructive pulmonary disease, unspecified
CPT/HCPCS: 97110; 97162; 97165; 97530

== ENCOUNTER → 2023-09-14 | Outpatient (CLI) | payer MEDICARE, MEDICAID, SELFPAY ==
--- NOTE | 2023-09-14 07:12 | CT_ITS ---
STUDY: LOW DOSE CT LUNG CANCER SCREENING REASON FOR EXAM: Female, 62 years old. 47 YEAR SMOKER 1 PPD . COPD RADIATION DOSAGE (If Supplied By Facility): CTDIvol = ( 4.02 ) mGy, DLP = ( 143.46 ) mGycm TECHNIQUE: No contrast was administered. Low dose technique was utilized (average mAS-38 and kVp 120). 1.25 mm axial source images with a slice interval of 1.25-mm were reconstructed in lung windows. 2.5 mm axial source images with a slice interval of 2.5-mm were reconstructed in lung windows. 5.0 mm axial source images with a slice interval of 5.0-mm were reconstructed in soft tissue windows. COMPARISON: Comparison is made with prior chest radiograph dated September 03, 2023. NODULES: No suspicious nodules are seen. Emphysema: Emphysematous changes. There is evidence of scarring and bronchiectasis at the lung bases. There is evidence of scarring in the anterior medial aspect of the lingular segment of the left upper lobe and the right middle lobe. Focal groundglass appearance in the anterior aspect of the right upper lobe as well as in the right middle lobe suggestive of a possible scarring. Endobronchial lesion: Unremarkable Aorta: Mild atherosclerotic plaque formation of the aortic arch. A right-sided portacatheter is seen. CORONARY ARTERIES: Coronary artery calcification is seen. Heart: Unremarkable Pulmonary artery: Unremarkable Mediastinal nodes: Unremarkable Other chest and abdominal findings: CT/Low Dose CT Lung Screening IMPRESSION: Lung-RADS category 2 - Continue annual screening with LDCT in 12 months. IMPORTANT NOTES FOR USE: ACR Lung-RADS Version 1.1 Assessment Categories Release Date: 2018 Category: Coded 0-4 bases on nodule(s) with highest degree of suspicion. Negative screen is defined as categories 1 and 2; a positive screen is defined as categories 3 and 4. Category 3 and 4A nodules that are unchanged on interval CT should be coded as category 2, and individuals returned to screening in 12 months. Category 4X: Category 3 or 4 nodules with additional imaging findings that increase the suspicion of lung cancer, such as spiculation, GGN that doubles in size in 1 year, enlarged lymph notes, etc. Category Modifiers: S (significant finding unrelated to lung cancer) Electronically Signed: Junior Carpio MD at 13:48 EDT ,
== END | disposition home or self-care (01) ==
PROVIDERS: PCP Nurse Practitioner Family; Referring Provider Nurse Practitioner Acute Care; Visit Provider Nurse Practitioner Acute Care
DX: F17.210 Nicotine dependence, cigarettes, uncomplicated (principal)
CPT/HCPCS: 71271

== ENCOUNTER → 2023-10-13 | Outpatient (CLI) | payer MEDICARE, MEDICAID, SELFPAY ==
[2023-10-13 11:08] LABS: Absolute Lymphocyte Count 1.28 X10^3/uL (0.83-4.51); Basophil# 0.06 X10^3/uL; Basophil% 0.8 % (0-1); Eosinophil# 0.35 X10^3/uL; Eosinophils% 4.8 % (0-5); Hematocrit 36.3 % (37-47); Hemoglobin 11.1 g/dL (12.0-15.0); Lymphocyte # 1.28 X10^3/ul (0.83-4.51); Lymphocyte % 17.5 % (19-41); Mean Corp Hgb Conc 30.6 g/dL (32-36); Mean Corpuscular Hgb 27.8 pg (27.0-32.0); Mean Corpuscular Volume 90.8 fL (81-99); Mean Platelet Vol. 10.4 fl (6.2-12.0); Monocyte# 0.64 X10^3/uL; Monocyte% 8.7 % (0-10); NRBC Flagged by Analyzer 0 % (0-5); Neutrophil # 4.98 X10^3/uL (2.7-7.7); Neutrophil % 67.9 % (47-70); Platelet Count 140 K/mm3 (150-450); RBC Distribution Width CV 14.7 % (11.6-14.6); RBC Distribution Width SD 49.3 fl (35.1-43.9); White Blood Count 7.3 K/mm3 (4.4-11.0)
[2023-10-13 11:25] LABS: BNP,B-Type NATRIURETIC PEPTIDE 56.2 pg/mL (0-100)
[2023-10-13 11:30] LABS: Anion Gap 4 (5-15); BUN 27 mg/dL (7-18); BUN/Creat Ratio 17.1 RATIO (10-20); Calcium,Total 9.4 mg/dL (8.5-10.1); Chloride 104 mmol/L (98-107); Creatinine, Serum 1.58 mg/dL (0.55-1.02); EST Glomerular Filtration Rate 35 mL/min (>60); Est Glom Filt Rate - Afr Amer 42 mL/min (>60); Glucose 123 mg/dL (74-106); Magnesium 2.1 mg/dL (1.6-2.6); Sodium Level 142 mmol/L (136-145); Thyroid Stim Hormone (TSH) 1.15 uIU/mL (0.358-3.74)
== END | disposition home or self-care (01) ==
PROVIDERS: PCP Nurse Practitioner Family; Referring Provider Nurse Practitioner Gerontology; Visit Provider Nurse Practitioner Gerontology
DX: R06.09 Other forms of dyspnea (principal); R53.83 Other fatigue
CPT/HCPCS: 36415; 80048; 83735; 83880; 84443; 85025

== ENCOUNTER → 2023-10-14 | Outpatient (CLI) | payer MEDICARE, MEDICAID, SELFPAY | END | disposition home or self-care (01) | PROVIDERS: PCP Nurse Practitioner Family; Referring Provider Nurse Practitioner Gerontology; Visit Provider Nurse Practitioner Gerontology | DX: K92.1 Melena (principal) | CPT/HCPCS: 82274 ==

== ENCOUNTER 2023-10-18 09:52 | Emergency (ER) | payer MEDICARE, MEDICAID, SELFPAY ==
[2023-10-18 09:53] VITALS: BP 110/80; PULSE 57; RESP 16; TEMP 35.8; O2SAT 98
--- NOTE | 2023-10-18 11:02 | EX.ED.DYSGE1 ---
HPI History of Present Illness Chief Complaint: General Illness Informant: patient Narrative Narrative: Patient with multiple complaints. She states she has cellulitis in both of her legs for the last week. She states it started on the right one, then 3 days later started having it on the left. Both are red, painful, swollen. She is on apixaban because of a history of DVTs. She denies any fevers or chills. She is still able to get around with her walker. She lives alone. She tried to go to her PCP today for this to have it evaluated and get on an antibiotic, but she states they told her to go to the ER instead of being seen there. When asked about how much pain and trouble getting around she is having/N, and if she feels she needs to be admitted to the hospital, she quickly states no, I feel like I can go home and I want to go home. She has had some left breast soreness for the past 4 or 5 days without any abscess or discharge or redness that she has noted. She denies any injury that she knows of. She states her pain management doctor, with whom she follows because of chronic low back pain, wants her to have a routine urine toxicology done and she is asking to get it done while she is here. She states she has been constipated recently, having a bowel movement every for 5 days which is not normal for her, and less frequent than normal, she states she has been straining to have bowel movements, she has been seeing no blood or melena that she knows of, but because she is having some perianal discomfort with having bowel movements, she states her PCP ordered a Hemoccult to be done, she did that last week and it was positive. She has the same symptoms now. She still has not seen any bright red blood per rectum. She denies any abdominal pain, nausea, vomiting. 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 current use of anticoagulant Chest pain History of cardiac arrest Chronic kidney disease Diverticulitis large intestine w/o perforation or abscess w/bleeding Abdominal ascites Pulmonary hypertension, secondary Acute hypotension History of COPD History of diabetes mellitus, type II Bradycardia Chest pain of uncertain etiology History of hypertension History of atrial fibrillation History of CHF (congestive heart failure) Peripheral edema Congestive heart failure Morbid obesity with BMI of 40.0-44.9, adult Pericardial effusion with cardiac tamponade Wears glasses Wears dentures Substance abuse Alcohol use Rash Gout High cholesterol PVD (peripheral vascular disease) Easy bruising Seizures Dietary restriction Gastric reflux Injury of back Vapes nicotine containing substance Fall History of pain when walking History of edema Insomnia Major depression On home oxygen therapy Emphysema, unspecified Neuropathy Cardiology follow-up encounter History of ulceration DKA (diabetic ketoacidosis) Cardiac arrest Lichen sclerosus Macular degeneration Essential hypertension Decreased left ventricular function Paroxysmal atrial fibrillation Diverticulosis Migraine Iron deficiency anemia COPD (chronic obstructive pulmonary disease) CHF (congestive heart failure) Neuropathy Kidney failure Hypothyroid Schizoaffective disorder, bipolar type Emphysema lung Diabetes Heart attack Home Medications ?Medication ?Instructions ?Recorded ?Last Taken ?Type apixaban 5 mg tablet (Eliquis) 5 mg PO BID a. fib. 12/24/22 07/27/23 History atorvastatin 20 mg tablet 20 mg PO DAILY cholesterol 12/24/22 07/27/23 History empagliflozin 10 mg tablet 10 mg PO DAILY diabetes 12/24/22 07/27/23 History (Jardiance) gabapentin 300 mg capsule 300 mg PO 4X/DAY 12/25/22 07/27/23 History albuterol sulfate 90 mcg/actuation 1 inh inhalation PRN PRN shortness 12/31/22 Unknown History aerosol inhaler of breath or wheezing meloxicam 7.5 mg tablet 7.5 mg PO DAILY 01/01/23 07/27/23 History trazodone 100 mg tablet 100 mg PO QHS 01/01/23 07/26/23 History aripiprazole 20 mg tablet 20 mg PO QHS mental health 03/09/23 07/26/23 History pantoprazole 40 mg tablet,delayed 40 mg PO DAILY #30 tabs 03/09/23 07/27/23 Rx release budesonide-formoterol HFA 80 2 inh inhalation BID breathing 04/27/23 07/27/23 History mcg-4.5 mcg/actuation aerosol inhaler (Symbicort) fluoxetine 40 mg capsule 40 mg PO DAILY 04/27/23 07/27/23 History fluticasone propionate 50 1 spray intranasal DAILY PRN 04/27/23 Unknown History mcg/actuation nasal allergy symptoms spray,suspension divalproex 500 mg tablet,extended 500 mg PO DAILY 07/25/23 07/27/23 History release 24 hr famotidine 20 mg tablet 20 mg PO DAILY 07/25/23 07/27/23 History hydrocodone-acetaminophen 5-325mg 1 tab PO BID PRN PRN pain 07/25/23 Unknown History 5mg-325mg levothyroxine 100 mcg tablet 100 mcg PO DAILY 07/25/23 07/27/23 History oxybutynin chloride 5 mg 5 mg PO DAILY 07/25/23 07/27/23 History tablet,extended release 24 hr tirzepatide 2.5 mg/0.5 mL 2.5 mg subcut QWEEK 07/25/23 07/24/23 History subcutaneous pen injector (Mounjaro) furosemide 40 mg tablet 40 mg PO DAILY 30 days #30 tabs 07/30/23 Unknown Rx tiotropium bromide 2.5 2 inh inhalation QDAY #1 ea 08/27/23 Unknown Rx mcg/actuation mist for inhalation (Spiriva Respimat) insulin glargine 100 unit/mL (3 22 unit subcut DAILY 10/13/23 Unknown History mL) subcutaneous pen (Lantus Solostar U-100 Insulin) valbenazine 40 mg capsule 80 mg PO DAILY 10/13/23 Unknown History (Ingrezza) doxycycline monohydrate 100 mg 100 mg PO BID #20 CAPSULES 10/18/23 Unknown Rx capsule hydrocortisone 1 %-pramoxine 1 % 1 applic KS QHS 1 week #10 grams 10/18/23 Unknown Rx rectal foam (Proctofoam HC) Allergy/AdvReac Type Severity Reaction Status Date / Time aspirin Allergy Mild Hives Verified 10/18/23 09:53 erythromycin base Allergy Mild Hives Verified 10/18/23 09:53 Penicillins Allergy Mild Hives Verified 10/18/23 09:53 polyethylene glycol 3350 Allergy Mild Nausea/Vom/ Verified 10/18/23 09:53 (From Miralax) Diarrhea tramadol Allergy Mild Hives Verified 10/18/23 09:53 tomato Allergy Food Verified 10/18/23 09:53 Allergy Family History Mother Heart disease Hypertension Cancer Father Brain aneurysm age 40 CVA (cerebral vascular accident) Cancer Brother Colon cancer Surgical History (Reviewed 10/13/23 @ 16:28 by Odilia Del Cid [employer], [employer]) Hx of vein stripping Hx of toe surgery History of lithotripsy History of delivery History of bilateral cataract extraction History of cholecystectomy H/O: hysterectomy Social History Smoking Status: Current every day smoker tobacco type: cigarettes and e-cigarettes Tobacco: How many years used: 18 Electronic Cigarette Use: with nicotine second hand exposure: No alcohol intake: never substance use type: does not use caffeine: Yes ROS ROS ED Constitutional Constitutional ED: Denies chills or fever(s) Eyes Eyes: Denies change in vision or diplopia ENT ENT ED: Denies rhinorrhea or sore throat Cardiovascular Cardiovascular: Denies chest pain or palpitations Respiratory/Chest Respiratory/Chest: Reports other Details: Left breast pain ; Denies cough or dyspnea Gastrointestinal Gastrointestinal: Reports constipation; Denies abdominal pain, diarrhea, melena, nausea or vomiting Genitourinary Genitourinary ED: Denies dysuria or hematuria Musculoskeletal Musculoskeletal: Reports as per HPI, back pain and extremity pain; Denies neck pain Integumentary Reports as per HPI and rash; Denies abscess Neurologic Neurologic: Denies headache(s), paresthesias or weakness Psychiatric Psychiatric: Denies suicidal thoughts EXAM Physical Exam Const Vital Signs: 10/18/23 09:53 10/18/23 10:02 10/18/23 11:52 Temperature 96.4 F L Temperature Source Temporal Pulse Rate 57 L 60 Respiratory Rate 16 15 Respiratory Pattern Normal Blood Pressure 110/80 130/88 H Blood Pressure Mean 90 102 Pulse Ox 98 99 Oxygen Delivery Method Room Air Room Air Positive well nourished, well developed and obese Constitutional Narrative: Well-appearing in no distress General Appearance ED: well developed and NAD Nutritional Appearance: obese HEENT Reports moist mucous membranes normocephalic and atraumatic Eyes PERRL and EOMs intact bilaterally Neck full ROM, supple and no JVD Chest Wall inspection of chest normal and palpation of chest normal Chest Narrative: Left breast mildly tender just lateral to the areola, I do not palpate any type of mass or lump however although I am versed in breast exams, I do not perform them regularly for this purpose of lump/cancer screening. There is no erythema, no peau d'orange appearance, no induration, and no tenderness in the areola or discharge from the nipple. Resp normal respiratory effort and clear to auscultation bilaterally Resp Narrative: Diminished throughout, symmetrically, mildly prolonged expiratory phase but otherwise clear. Cardio regular rate and regular rhythm Rate: Negative for tachycardic GI non-tender and non-distended Auscultation: normoactive bowel sounds Palpation: soft Narrative: Mild perianal tenderness diffuse nonfocal, no palpable abscess or fullness, no external or thrombosed hemorrhoids. No blood. No melena or bright red blood on DEVIN. Back/Spine no CVA tenderness General Back: other FROM Extremity Extremity Narrative: There is very tender erythema worse in the right lower leg than the left lower leg, and it is a little more proximal in the right, progressing to about the mid calf, it has irregular edges, it is warm, there is no abscess or subcutaneous emphysema, and the areas that are red are mildly edematous, this is all consistent with cellulitis but I see it on both sides worse on the right. No palpable cords. She does have multiple varicose veins bilaterally. She has no palpable inguinal lymphadenopathy but she is tender in the vertical group superficial nodes of the medial thigh. This is bilateral and symmetric. They are normal-appearing. All compartments are soft and nondistended, she has full range of motion of all the joints of the lower extremities. General Extremety ED: Yes edema and tenderness; Negative for pulses abnormal General Extremity: edema; Negative for pulses abnormal Neuro oriented x3, CN's II-XII intact bilaterally and no sensory deficits noted Sensorium / Orientation: awake and alert Motor Exam: strength 5/5 throughout Psych Mood & Affect: anxious Skin no rashes or lesions noted and no wounds MDM MDM MDM Narrative Medical decision making narrative: The patient's clinical exam is consistent with cellulitis, does appear worse on the right where she states it started, and relatively mild/limited on the left. There is no sign of subcutaneous emphysema on my exam, and on reevaluation after obtaining labs which are noted and unremarkable except for chronic renal insufficiency, she has had no spread of the erythema proximally in the last couple hours to suggest necrotizing fasciitis. She wants to go home so I am giving her a dose of IV vancomycin since she is allergic to penicillins, and prescribing her doxycycline and advising close a patient follow-up. She is in pain management, so she has analgesics. She is comfortable that overall plan. With regards to her breast, she may need to follow-up for mammogram if she continues having pain. There is no evidence of mastitis or infection/abscess. With regards to the occult GI bleeding she had, she has been constipated and admittedly straining a lot, and this may simply be bleeding due to internal hemorrhoids. I do not see any external hemorrhoids or thrombosed hemorrhoids. I am at a low suspicion of an abscess here especially without a leukocytosis or a focal area of tenderness. She is amenable to trying injectable Proctofoam HC to see if that helps and taking a stool softener at home and following up. We performed a drug screen for her, it is positive for opiates as expected since she is on them, and negative for everything else. Lab Data Attestation: I reviewed the patient's lab results. Labs: Laboratory Results - last 24 hr 10/18/23 10/18/23 11:15 11:38 WBC 7.6 RBC 4.40 Hgb 12.1 Hct 40.0 MCV 90.9 MCH 27.5 MCHC 30.3 L RDW Std Deviation 49.5 H RDW Coeff of Penny 14.9 H Plt Count 136 L MPV 9.8 Immature Gran % (Auto) 0.400 Neut % (Auto) 68.6 Lymph % (Auto) 17.8 L Randall % (Auto) 8.6 Eos % (Auto) 4.1 Baso % (Auto) 0.5 Absolute Neuts (auto) 5.2 Absolute Lymphs (auto) 1.35 Nucleated RBC % 0 Sodium 138 Potassium 4.2 Chloride 101 Carbon Dioxide 32.0 Anion Gap 5 BUN 33 H Creatinine 1.87 H Estim Creat Clear Calc 34.32 Est GFR (MDRD) Af Amer 35 L Est GFR (MDRD) Non-Af 29 L BUN/Creatinine Ratio 17.6 Glucose 98 Calcium 9.7 Urine Opiates Screen POSITIVE H Urine Methadone Screen NEGATIVE Ur Barbiturates Screen NEGATIVE Ur Phencyclidine Scrn NEGATIVE Ur Amphetamines Screen NEGATIVE MDMA (Ecstasy) Screen NEGATIVE U Benzodiazepines Scrn NEGATIVE Urine Cocaine Screen NEGATIVE U Cannabinoids Screen NEGATIVE Ur Drug Screen Comment Discharge Plan Triage Chief Complaint: General Illness ED Provider: Chandrakant Rodriguez Dx/Rx/DC Orders Clinical Impression: Bilateral lower leg cellulitis, Breast pain, left, Occult GI bleeding, Constipation Instructions: ED Cellulitis, ED Constipation (Adult), Breast Pain (Mastalgia) Prescriptions: New doxycycline monohydrate 100 mg capsule 100 mg PO BID Qty: 20 0RF Proctofoam HC 1-1 % foam 1 applic KS QHS 7 Days Qty: 10 0RF No Action atorvastatin 20 mg tablet 20 mg PO DAILY Eliquis 5 mg tablet 5 mg PO BID Jardiance 10 mg tablet 10 mg PO DAILY gabapentin 300 mg capsule 300 mg PO 4X/DAY fluoxetine 40 mg capsule 40 mg PO DAILY fluticasone propionate 50 mcg/actuation spray,suspension 1 spray intranasal DAILY PRN (Reason: allergy symptoms) Patient Comments: instill 2 sprays in each nostril daily budesonide-formoterol [Symbicort] 80-4.5 mcg/actuation HFA aerosol inhaler 2 inh inhalation BID Patient Comments: INHALE TWO PUFFS BY MOUTH TWICE DAILY. RINSE MOUTH AFTER USE Ingrezza 40 mg capsule 80 mg PO DAILY Spiriva Respimat 2.5 mcg/actuation mist 2 inh inhalation QDAY Qty: 1 6RF Rx Instructions: administer at approximately the same time(s) each day albuterol sulfate 90 mcg/actuation HFA aerosol inhaler 1 inh INHALATION PRN PRN (Reason: shortness of breath or wheezing) trazodone 100 mg tablet 100 mg PO QHS Patient Comments: TAKE 1 TABLET BY MOUTH EVERY DAY AT NIGHT meloxicam 7.5 mg tablet 7.5 mg PO DAILY Patient Comments: TAKE 1 TABLET BY MOUTH EVERY DAY FOR 30DAYS ON A FULL STOMACH aripiprazole 20 mg tablet 20 mg PO QHS Patient Comments: TAKE ONE TABLET BY MOUTH DAILY AT 9AM pantoprazole 40 mg tablet,delayed release (DR/EC) 40 mg PO DAILY Qty: 30 0RF hydrocodone-acetaminophen 5-325 mg tablet 1 tab PO BID PRN PRN (Reason: pain) famotidine 20 mg tablet 20 mg PO DAILY divalproex 500 mg tablet extended release 24 hr 500 mg PO DAILY levothyroxine 100 mcg tablet 100 mcg PO DAILY oxybutynin chloride 5 mg tablet extended release 24hr 5 mg PO DAILY Mounjaro 2.5 mg/0.5 mL pen injector 2.5 mg subcut QWEEK insulin glargine [Lantus Solostar U-100 Insulin] 100 unit/mL (3 mL) insulin pen 22 unit subcut DAILY furosemide 40 mg Tablet 40 mg PO DAILY 30 Days Qty: 30 0RF Primary Care Provider: Eric Marion Referrals: Eric Marion, [employer] [Primary Care Provider] - 3-5 Days Print Language: Egyptian Disposition Disposition: Home, Self Care
[2023-10-18 11:20] LABS: Absolute Lymphocyte Count 1.35 X10^3/uL (0.83-4.51); Absolute Neutrophil Count 5.2 X10^3/uL (2.0-7.7); Basophil# 0.04 X10^3/uL; Basophil% 0.5 % (0-1); Eosinophil# 0.31 X10^3/uL; Eosinophils% 4.1 % (0-5); Hemoglobin 12.1 g/dL (12.0-15.0); Lymphocyte # 1.35 X10^3/ul (0.83-4.51); Lymphocyte % 17.8 % (19-41); Mean Corp Hgb Conc 30.3 g/dL (32-36); Mean Corpuscular Hgb 27.5 pg (27.0-32.0); Mean Corpuscular Volume 90.9 fL (81-99); Mean Platelet Vol. 9.8 fl (6.2-12.0); Monocyte# 0.65 X10^3/uL; Monocyte% 8.6 % (0-10); NRBC Flagged by Analyzer 0 % (0-5); Neutrophil # 5.21 X10^3/uL (2.7-7.7); Neutrophil % 68.6 % (47-70); Platelet Count 136 K/mm3 (150-450); RBC Distribution Width CV 14.9 % (11.6-14.6); RBC Distribution Width SD 49.5 fl (35.1-43.9); White Blood Count 7.6 K/mm3 (4.4-11.0)
[2023-10-18] MEDS: Doxycycline 100 MG CAPSULE PO (11:22)
[2023-10-18 11:23] VITALS: BMI 39.6
[2023-10-18 11:45] LABS: Anion Gap 5 (5-15); BUN 33 mg/dL (7-18); BUN/Creat Ratio 17.6 RATIO (10-20); Calcium,Total 9.7 mg/dL (8.5-10.1); Chloride 101 mmol/L (98-107); Creatinine, Serum 1.87 mg/dL (0.55-1.02); EST Glomerular Filtration Rate 29 mL/min (>60); Est Glom Filt Rate - Afr Amer 35 mL/min (>60); Estimated Creatinine Clearance 34.32 ml/min; Glucose 98 mg/dL (74-106); Potassium 4.2 mmol/L (3.5-5.1); Sodium Level 138 mmol/L (136-145)
[2023-10-18 11:52] VITALS: BP 130/88; PULSE 60; RESP 15; O2SAT 99
[2023-10-18 12:15] LABS: Amphetamine Urine VISTA NEGATIVE (<1000 ng/mL); Barbiturate Urine VISTA NEGATIVE (< 200 ng/mL); Benzodiazepine Urine VISTA NEGATIVE (< 200 ng/mL); Cocaine Urine VISTA NEGATIVE (< 300 ng/mL); Ecstacy Urine VISTA NEGATIVE (< 500 ng/mL); Methadone Urine VISTA NEGATIVE (< 300 ng/mL); PCP Urine VISTA NEGATIVE (< 25 ng/mL); THC Urine VISTA NEGATIVE (< 50 ng/mL); Vista UDS pH Range 5
[2023-10-18] MEDS: Vancomycin HCl 1,500 MG in 0.9% Normal Saline (500mL Bag) 500 ML 250 MG IV (12:53)
[2023-10-18 13:00] VITALS: BP 149/60; PULSE 74; RESP 16; O2SAT 99
[2023-10-18 14:49] VITALS: BP 145/69; PULSE 77; RESP 19; TEMP 36.6; O2SAT 97
== END 2023-10-18 15:13 | disposition home or self-care (01) ==
PROVIDERS: Emergency Provider Emergency Medicine; PCP Nurse Practitioner Family; Visit Provider Emergency Medicine
DX: L03.116 Cellulitis of left lower limb (principal); I50.9 Heart failure, unspecified; I13.0 Hypertensive heart and chronic kidney disease with heart failure and stage 1 through stage 4 chronic kidney disease, or unspecified chronic kidney disease; J43.9 Emphysema, unspecified; I48.0 Paroxysmal atrial fibrillation; E66.01 Morbid (severe) obesity due to excess calories; Z68.41 Body mass index [BMI] 40.0-44.9, adult; E11.22 Type 2 diabetes mellitus with diabetic chronic kidney disease; E11.40 Type 2 diabetes mellitus with diabetic neuropathy, unspecified; N18.9 Chronic kidney disease, unspecified; K92.2 Gastrointestinal hemorrhage, unspecified; K59.00 Constipation, unspecified; Z79.01 Long term (current) use of anticoagulants; L03.115 Cellulitis of right lower limb; N64.4 Mastodynia; F17.210 Nicotine dependence, cigarettes, uncomplicated; Z86.718 Personal history of other venous thrombosis and embolism; E78.00 Pure hypercholesterolemia, unspecified; K21.9 Gastro-esophageal reflux disease without esophagitis; F17.290 Nicotine dependence, other tobacco product, uncomplicated; M54.9 Dorsalgia, unspecified; G89.29 Other chronic pain
CPT/HCPCS: 80048; 80307; 85025; 96365; 96366; 99283; J7040; J7050; A4216

== ENCOUNTER → 2023-10-18 | Outpatient (CLI) | payer MEDICARE, MEDICAID, SELFPAY | END | disposition home or self-care (01) | PROVIDERS: PCP Nurse Practitioner Family; Referring Provider Anesthesiology Pain Medicine; Visit Provider Anesthesiology Pain Medicine | DX: F11.20 Opioid dependence, uncomplicated (principal) ==

== ENCOUNTER 2023-10-23 12:52 | Emergency (ER) | payer MEDICARE, MEDICAID, SELFPAY ==
[2023-10-23 12:53] VITALS: BP 173/142; PULSE 80; RESP 22; TEMP 36.7; O2SAT 99
[2023-10-23 13:00] VITALS: BMI 40.7
[2023-10-23 13:23] VITALS: BP 135/64
--- NOTE | 2023-10-23 13:45 | ED.VIS.LOWEX ---
HPI History of Present Illness HPI Narrative: 62-year-old female history of COPD, diabetes and CKD. Plan bilateral lower extremity discomfort. She was seen here about 5 days ago. Was treated for cellulitis is on doxycycline. Denies any fall injury or trauma. No fever. Said her legs are improving with the antibiotic. They just hurt when she walks. She has had bilateral knee replacements before. Chief Complaint: Wound Check Informant: patient Occured/Mechanism Mechanism/Context: No injury and No blunt trauma Onset/Context/Timing Onset: Days Context: Gradual Onset Timing: Continuous Quality of Pain: Dull and Aching Current Severity: Mild Maximum Severity: Mild Associated Symptoms Associated Symptoms: Negative for Parasthesia, Weakness or Loss of Funtion Narrative Narrative: 62-year-old complaining of atraumatic bilateral leg discomfort with walking. Denies any trauma. 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 Chest pain History of cardiac arrest Chronic kidney disease Diverticulitis large intestine w/o perforation or abscess w/bleeding Abdominal ascites Pulmonary hypertension, secondary Acute hypotension History of COPD History of diabetes mellitus, type II Bradycardia Chest pain of uncertain etiology History of hypertension History of atrial fibrillation History of CHF (congestive heart failure) Peripheral edema Congestive heart failure Morbid obesity with BMI of 40.0-44.9, adult Pericardial effusion with cardiac tamponade Wears glasses Wears dentures Substance abuse Alcohol use Rash Gout High cholesterol PVD (peripheral vascular disease) Easy bruising Seizures Dietary restriction Gastric reflux Injury of back Vapes nicotine containing substance Fall History of pain when walking History of edema Insomnia Major depression On home oxygen therapy Emphysema, unspecified Neuropathy Cardiology follow-up encounter History of ulceration DKA (diabetic ketoacidosis) Cardiac arrest Lichen sclerosus Macular degeneration Essential hypertension Decreased left ventricular function Paroxysmal atrial fibrillation Diverticulosis Migraine Iron deficiency anemia COPD (chronic obstructive pulmonary disease) CHF (congestive heart failure) Neuropathy Kidney failure Hypothyroid Schizoaffective disorder, bipolar type Emphysema lung Diabetes Heart attack Home Medications ?Medication ?Instructions ?Recorded ?Last Taken ?Type apixaban 5 mg tablet (Eliquis) 5 mg PO BID a. fib. 12/24/22 07/27/23 History atorvastatin 20 mg tablet 20 mg PO DAILY cholesterol 12/24/22 07/27/23 History empagliflozin 10 mg tablet 10 mg PO DAILY diabetes 12/24/22 07/27/23 History (Jardiance) gabapentin 300 mg capsule 300 mg PO 4X/DAY 12/25/22 07/27/23 History albuterol sulfate 90 mcg/actuation 1 inh inhalation PRN PRN shortness 12/31/22 Unknown History aerosol inhaler of breath or wheezing meloxicam 7.5 mg tablet 7.5 mg PO DAILY 01/01/23 07/27/23 History trazodone 100 mg tablet 100 mg PO QHS 01/01/23 07/26/23 History aripiprazole 20 mg tablet 20 mg PO QHS mental health 03/09/23 07/26/23 History pantoprazole 40 mg tablet,delayed 40 mg PO DAILY #30 tabs 03/09/23 07/27/23 Rx release budesonide-formoterol HFA 80 2 inh inhalation BID breathing 04/27/23 07/27/23 History mcg-4.5 mcg/actuation aerosol inhaler (Symbicort) fluoxetine 40 mg capsule 40 mg PO DAILY 04/27/23 07/27/23 History fluticasone propionate 50 1 spray intranasal DAILY PRN 04/27/23 Unknown History mcg/actuation nasal allergy symptoms spray,suspension divalproex 500 mg tablet,extended 500 mg PO DAILY 07/25/23 07/27/23 History release 24 hr famotidine 20 mg tablet 20 mg PO DAILY 07/25/23 07/27/23 History hydrocodone-acetaminophen 5-325mg 1 tab PO BID PRN PRN pain 07/25/23 Unknown History 5mg-325mg levothyroxine 100 mcg tablet 100 mcg PO DAILY 07/25/23 07/27/23 History oxybutynin chloride 5 mg 5 mg PO DAILY 07/25/23 07/27/23 History tablet,extended release 24 hr tirzepatide 2.5 mg/0.5 mL 2.5 mg subcut QWEEK 07/25/23 07/24/23 History subcutaneous pen injector (Joseph) furosemide 40 mg tablet 40 mg PO DAILY 30 days #30 tabs 07/30/23 Unknown Rx tiotropium bromide 2.5 2 inh inhalation QDAY #1 ea 08/27/23 Unknown Rx mcg/actuation mist for inhalation (Spiriva Respimat) insulin glargine 100 unit/mL (3 22 unit subcut DAILY 10/13/23 Unknown History mL) subcutaneous pen (Lantus Solostar U-100 Insulin) valbenazine 40 mg capsule 80 mg PO DAILY 10/13/23 Unknown History (Ingrezza) doxycycline monohydrate 100 mg 100 mg PO BID #20 CAPSULES 10/18/23 Unknown Rx capsule hydrocortisone 1 %-pramoxine 1 % 1 applic SC QHS 1 week #10 grams 10/18/23 Unknown Rx rectal foam (Proctofoam HC) Allergy/AdvReac Type Severity Reaction Status Date / Time aspirin Allergy Mild Hives Verified 10/23/23 12:56 erythromycin base Allergy Mild Hives Verified 10/23/23 12:56 Penicillins Allergy Mild Hives Verified 10/23/23 12:56 polyethylene glycol 3350 Allergy Mild Nausea/Vom/ Verified 10/23/23 12:56 (From Miralax) Diarrhea tramadol Allergy Mild Hives Verified 10/23/23 12:56 tomato Allergy Food Verified 10/23/23 12:56 Allergy Family History Mother Heart disease Hypertension Cancer Father Brain aneurysm age 40 CVA (cerebral vascular accident) Cancer Brother Colon cancer Surgical History Hx of vein stripping Hx of toe surgery History of lithotripsy History of delivery History of bilateral cataract extraction History of cholecystectomy H/O: hysterectomy Social History Smoking Status: Current every day smoker tobacco type: cigarettes and e-cigarettes Tobacco: How many years used: 18 Electronic Cigarette Use: with nicotine second hand exposure: No alcohol intake: never substance use type: does not use caffeine: Yes ROS ROS ED ROS Narrative Denies recent illness. Constitutional Constitutional ED: Denies fever(s) Eyes Eyes: Denies blurry vision ENT ENT ED: Denies ear pain Cardiovascular Cardiovascular: Denies chest pain Respiratory/Chest Respiratory/Chest: Denies cough Gastrointestinal Gastrointestinal: Denies abdominal pain Genitourinary Genitourinary ED: Denies dysuria or hematuria Musculoskeletal Musculoskeletal: Denies arthralgias Integumentary Denies abscess Neurologic Neurologic: Denies headache(s) Psychiatric Psychiatric: Denies anxiety or depression Endocrine Endocrinology: Denies polydipsia or polyphagia Hematologic/Lymphatic Hematologic/Lymphatic: Denies easy bleeding or easy bruising Allergic/Immunologic Allergic/Immunologic ED: Denies mouth swelling or tongue swelling EXAM Physical Exam Narrative Exam Narrative: C2-year-old female vital signs are stable afebrile. She does not look septic toxic or in acute distress. H EENT exam unremarkable. Lungs clear. Heart regular rhythm no murmur. Abdomen soft nontender. Normal bowel sounds. Moving all 4 extremities. 5-5 pulper tender strength. Dorsi plantarflexion intact. Well-healed prior knee scars from total knee replacements. She has normal flexion extension of both hips, knees and ankles. Dorsi and plantarflexion intact. No edema. No cellulitis. No cords. No deformity. No hot or swollen or red joints. Back nontender. She is awake and alert. No focal motor deficits. Const Vital Signs: 10/23/23 12:53 10/23/23 13:23 Temperature 98.0 F Temperature Source Temporal Pulse Rate 80 Respiratory Rate 22 H Blood Pressure 173/142 H 135/64 H Blood Pressure Mean 152 87 Pulse Ox 99 Oxygen Delivery Method Room Air Positive well nourished and well developed; Negative for cachectic, contractures or unkempt General Appearance ED: well developed; Negative for unkempt, cachectic or contractures Nutritional Appearance: Negative for cachectic HEENT Reports moist mucous membranes normocephalic and atraumatic; Negative for trauma or tenderness Eyes PERRL Neck full ROM and supple Thyroid: Negative for tender Chest Wall inspection of chest normal and palpation of chest normal Resp normal respiratory effort, no retractions and clear to auscultation bilaterally Cardio regular rate, regular rhythm, S1 normal heart sound, S2 normal heart sound and no murmurs GI non-tender, non-distended and no masses Inspection: Negative for abdominal distention Palpation: soft; Negative for tender, guarding or rebound tenderness present Back/Spine no CVA tenderness Extremity normal to inspection and full ROM Extremity Narrative: Nontender. No deformity. Normal range of motion. Neuro oriented x3 and CN's II-XII intact bilaterally Sensorium / Orientation: alert, oriented to person and oriented to place; Negative for oriented to time, orientation impaired, confused, lethargic or stuporous Motor Exam: strength 5/5 throughout Psych mental status grossly normal Appearance: Negative for unkempt Mood & Affect: anxious Skin no wounds Lesions: no lesions Rashes: no rashes Trauma: Negative for abrasion or laceration MDM MDM MDM Narrative Medical decision making narrative: 15-year-old complaining of leg pain when she walks. She has had no fall or trauma. Leg exam is benign. She has normal motor strength and sensation. She has had well-healed prior old knee replacement surgeries. There is no cords. There is no cellulitis currently. She has normal range of motion of the joints. She does not need anything in the emergency department. She asked me if it could be fibromyalgia I told her it is possible that we could determine that today in the emergency department. She will be discharged to home. Discharge Plan Triage Chief Complaint: Wound Check ED Provider: Dallas Saini Dx/Rx/DC Orders Clinical Impression: Bilateral leg pain, History of COPD, History of diabetes mellitus, History of schizoaffective disorder Prescriptions: No Action atorvastatin 20 mg tablet 20 mg PO DAILY Eliquis 5 mg tablet 5 mg PO BID Jardiance 10 mg tablet 10 mg PO DAILY gabapentin 300 mg capsule 300 mg PO 4X/DAY fluoxetine 40 mg capsule 40 mg PO DAILY fluticasone propionate 50 mcg/actuation spray,suspension 1 spray intranasal DAILY PRN (Reason: allergy symptoms) Patient Comments: instill 2 sprays in each nostril daily budesonide-formoterol [Symbicort] 80-4.5 mcg/actuation HFA aerosol inhaler 2 inh inhalation BID Patient Comments: INHALE TWO PUFFS BY MOUTH TWICE DAILY. RINSE MOUTH AFTER USE Ingrezza 40 mg capsule 80 mg PO DAILY Spiriva Respimat 2.5 mcg/actuation mist 2 inh inhalation QDAY Qty: 1 6RF Rx Instructions: administer at approximately the same time(s) each day albuterol sulfate 90 mcg/actuation HFA aerosol inhaler 1 inh INHALATION PRN PRN (Reason: shortness of breath or wheezing) trazodone 100 mg tablet 100 mg PO QHS Patient Comments: TAKE 1 TABLET BY MOUTH EVERY DAY AT NIGHT meloxicam 7.5 mg tablet 7.5 mg PO DAILY Patient Comments: TAKE 1 TABLET BY MOUTH EVERY DAY FOR 30DAYS ON A FULL STOMACH aripiprazole 20 mg tablet 20 mg PO QHS Patient Comments: TAKE ONE TABLET BY MOUTH DAILY AT 9AM pantoprazole 40 mg tablet,delayed release (DR/EC) 40 mg PO DAILY Qty: 30 0RF hydrocodone-acetaminophen 5-325 mg tablet 1 tab PO BID PRN PRN (Reason: pain) famotidine 20 mg tablet 20 mg PO DAILY divalproex 500 mg tablet extended release 24 hr 500 mg PO DAILY levothyroxine 100 mcg tablet 100 mcg PO DAILY oxybutynin chloride 5 mg tablet extended release 24hr 5 mg PO DAILY Mounjaro 2.5 mg/0.5 mL pen injector 2.5 mg subcut QWEEK insulin glargine [Lantus Solostar U-100 Insulin] 100 unit/mL (3 mL) insulin pen 22 unit subcut DAILY doxycycline monohydrate 100 mg capsule 100 mg PO BID Qty: 20 0RF Proctofoam HC 1-1 % foam 1 applic SC QHS 7 Days Qty: 10 0RF furosemide 40 mg Tablet 40 mg PO DAILY 30 Days Qty: 30 0RF Primary Care Provider: Eric Marion Referrals: Eric Marion, [employer] [Primary Care Provider] - As soon as possible Activity Restrictions/Additional Instructions: Your exam is unremarkable. You had recent labs that were unremarkable. Motrin and Tylenol for pain. Follow-up with your doctor if not improving. Print Language: Sudanese Disposition Disposition: Home, Self Care
== END 2023-10-23 13:55 | disposition home or self-care (01) ==
PROVIDERS: Emergency Provider Emergency Medicine; PCP Nurse Practitioner Family; Visit Provider Emergency Medicine
DX: M79.604 Pain in right leg (principal); F25.9 Schizoaffective disorder, unspecified; I13.0 Hypertensive heart and chronic kidney disease with heart failure and stage 1 through stage 4 chronic kidney disease, or unspecified chronic kidney disease; I50.9 Heart failure, unspecified; J44.9 Chronic obstructive pulmonary disease, unspecified; I48.0 Paroxysmal atrial fibrillation; E11.22 Type 2 diabetes mellitus with diabetic chronic kidney disease; N18.9 Chronic kidney disease, unspecified; M79.605 Pain in left leg; Z96.653 Presence of artificial knee joint, bilateral; E78.00 Pure hypercholesterolemia, unspecified; Z79.01 Long term (current) use of anticoagulants; Z79.899 Other long term (current) drug therapy; Z79.84 Long term (current) use of oral hypoglycemic drugs; K21.9 Gastro-esophageal reflux disease without esophagitis; Z79.51 Long term (current) use of inhaled steroids; E03.9 Hypothyroidism, unspecified; Z98.41 Cataract extraction status, right eye; Z98.42 Cataract extraction status, left eye; Z90.49 Acquired absence of other specified parts of digestive tract; Z90.710 Acquired absence of both cervix and uterus; F17.210 Nicotine dependence, cigarettes, uncomplicated; F17.290 Nicotine dependence, other tobacco product, uncomplicated
CPT/HCPCS: 99282

== ENCOUNTER → 2023-11-04 | Outpatient (CLI) | payer MEDICARE, MEDICAID, SELFPAY ==
--- NOTE | 2023-11-04 07:30 | ART_ITS ---
Reason For Study: PVD Procedure A bilateral lower extremity continuous wave Doppler with analog waveform analysis,segmental pressures,and ankle brachial indexes without exercise. Left Segmental Pressures Left brachial= 138mmHg. Left posterior tibial artery = 170mmHg. Left dorsalis pedis artery = 157mmHg. Left digit = 126 mmHg. The left dorsalis pedis waveforms are triphasic. The left posterior tibial artery waveforms are triphasic. Right Segmental Pressures Right brachial= 136mmHg. Right posterior tibial artery = 178mmHg. Right dorsalis pedis artery = 154mmHg. Right digit = 118 mmHg. The right dorsalis pedis waveforms are triphasic. The right posterior tibial artery waveforms are triphasic. Indices The right ankle brachial index by the dorsalis pedis is 1.12. The right ankle brachial index by the posterior tibial artery is 1.29. The right digital-brachial index is 0.86. The left ankle brachial index by the dorsalis pedis is 1.14. The left ankle brachial index by the posterior tibial artery is 1.23. The left digital-brachial index is 0.91. VL/Lower Ext Art Exam w/o Exercis Interpretation Summary Triphasic Doppler waveforms are noted at ankle level bilaterally. Pulse-volume recordings appear satisfactory at all levels bilaterally. Resting ankle-brachial indices are norm al bilaterally. Digital-brachial indices are normal bilaterally. There is no evidence of significant arterial occlusive disease in the lower ext remities bilaterally. Ordering Physician: Neil Conway Referring Physician: Eric Marion Performed By: Mary Eduardo RVT
== END | disposition home or self-care (01) ==
PROVIDERS: PCP Nurse Practitioner Family; Referring Provider Podiatrist; Visit Provider Podiatrist
DX: I73.89 Other specified peripheral vascular diseases (principal)
CPT/HCPCS: 93923

== ENCOUNTER → 2023-11-11 | Outpatient (CLI) | payer MEDICARE, MEDICAID, SELFPAY ==
[2023-11-11 16:04] LABS: Color, Urine Yellow (Yellow); Glucose, Dipstick 1000 mg/dl (Normal); Ketone-Dipstick Negative (Negative); Leukocyte Esterase-Dipstick Negative /ul (Negative); Nitrite-Dipstick Negative (Negative); Occult Blood-Urine Negative /ul (Negative); Protein-Dipstick Negative (Negative); Specific Gravity, Urine 1.015 (1.002-1.030); Urine Bilirubin Dipstick Negative (Negative); Urine Clarity Clear (Clear); Urine Urobilinogen Normal (Normal)
== END | disposition home or self-care (01) ==
LOC: LABSPEC 15:10
PROVIDERS: PCP Nurse Practitioner Family; Referring Provider Family Medicine; Visit Provider Family Medicine
DX: R31.9 Hematuria, unspecified (principal)
CPT/HCPCS: 81002; 87086; 87088

== ENCOUNTER → 2023-12-02 | Outpatient (CLI) | payer MEDICARE, MEDICAID, SELFPAY | END | disposition home or self-care (01) | LOC: PSN 08:45 | PROVIDERS: PCP Nurse Practitioner Family; Referring Provider Nurse Practitioner Acute Care; Visit Provider Nurse Practitioner Acute Care | DX: J43.2 Centrilobular emphysema (principal) | CPT/HCPCS: 94060; 94726; 94729 ==

== ENCOUNTER → 2023-12-07 | Outpatient (CLI) | payer MEDICARE, MEDICAID, SELFPAY ==
[2023-12-07 08:15] VITALS: PULSE 75; PULSE 79; PULSE 83; PULSE 86; PULSE 87; PULSE 90; O2SAT 89; O2SAT 90; O2SAT 91; O2SAT 92; O2SAT 93; O2SAT 94
--- NOTE | 2023-12-13 10:19 | WT_ITS ---
PSN 6 Minute Walk Test 6 Minute Walk Test 6 Minute Walk Test: 6 Minute Walk Test PSN:6-Minute Walk Test Start: 12/07/23 08:34 Freq: Status: Active Protocol: [id number] Document 12/07/23 08:15 EW (Rec: 12/07/23 08:36 EW [id number]) 6 Minute Walk Test Date Performed 12/07/23 Time Performed 08:15 Height 5 ft 3 in Weight: 230 lb Weight in Pounds 230.0 lbs Assistive device used: None Pre-test Oxygen Delivery Method Room Air Pulse Ox (%) 93 Pulse Rate (60-100 beats/min) 79 Dyspnea Bob Scale (0-10) 1 Exertion Bob Scale (6-20) 8 1st minute Oxygen Delivery Method Room Air Pulse Ox (%) 91 Pulse Rate (60-100 beats/min) 83 2nd minute Oxygen Delivery Method Room Air Pulse Ox (%) 89 Pulse Rate (60-100 beats/min) 79 3rd minute Oxygen Delivery Method Room Air Pulse Ox (%) 90 Pulse Rate (60-100 beats/min) 86 4th minute Oxygen Delivery Method Room Air Pulse Ox (%) 91 Pulse Rate (60-100 beats/min) 90 5th minute Oxygen Delivery Method Room Air Pulse Ox (%) 91 Pulse Rate (60-100 beats/min) 90 6th minute Oxygen Delivery Method Room Air Pulse Ox (%) 92 Pulse Rate (60-100 beats/min) 87 Post-test Oxygen Delivery Method Room Air Pulse Ox (%) 94 Pulse Rate (60-100 beats/min) 75 Dyspnea Bob Scale (0-10) 2 Exertion Bob Scale (6-20) 16 Full Laps Walked 7 Partial Lap, Number of Tiles Walked 0 Total Distance Walked (ft) 413 Interpretation Interpretation: The patient ambulated 413 feet over the course of 6 minutes beginning on room air without assistive devices. Pretesting oxygen saturation was noted to be 93% on room air. With ambulation, the tiana oxygen saturation was 89%. There was evidence of both impaired walk distance and significant exertional oxygen desat uration. Recommendations Recommendations: There is no indication for the use of supplemental oxygen at this time. However, close interval follow-up is recommended, given the degree of oxygen desaturation noted during the study.
== END | disposition home or self-care (01) ==
PROVIDERS: PCP Nurse Practitioner Family; Referring Provider Nurse Practitioner Acute Care; Visit Provider Nurse Practitioner Acute Care
DX: J43.2 Centrilobular emphysema (principal)
CPT/HCPCS: 94618

== ENCOUNTER 2023-12-09 19:17 | Emergency (ER) | payer MEDICARE, MEDICAID, SELFPAY ==
[2023-12-09 19:19] VITALS: BP 148/61; PULSE 55; RESP 18; TEMP 35.6; O2SAT 96
--- NOTE | 2023-12-09 20:00 | CT_ITS ---
STUDY: CT ABDOMEN AND PELVIS WITHOUT CONTRAST REASON FOR EXAM: Female, 63 years old. Pain RADIATION DOSAGE (If Supplied By Facility): CTDIvol = ( 20.25 ) mGy, DLP = ( 1153.28 ) mGycm TECHNIQUE: Transaxial images were obtained from the dome of the diaphragm to the symphysis pubis without oral contrast, and without intravenous contrast. Sagittal and coronal images were reconstructed. Individualized dose optimization techniques were used for this CT. COMPARISON: March 09, 2023 FINDINGS: Mild atelectasis within the dependent portion of the right lower lobe. The visualized portions of the heart are within normal limits. Normal liver. Status post cholecystectomy. Normal spleen. Normal pancreas. Normal bilateral adrenal glands. Normal right kidney. Normal left kidney. Normal visualized stomach. Normal small intestine. Diverticular changes of the descending and sigmoid colon without evidence for acute diverticulitis. The appendix is visualized and appears normal. Normal abdominal aorta. Normal inferior vena cava. Normal retroperitoneum. Normal urinary bladder. Uterus not visualized status post hysterectomy Tiny bilateral subcentimeter inguinal nodes. Lumbar spine demonstrates minor spondylosis CT/Abdomen/Pelvis without Cont IMPRESSION: Mild diverticular disease of the descending and sigmoid colon without evidence for acute diverticulitis Status post cholecystectomy and hysterectomy. No evidence for small bowel obstruction or other acute abnormality Electronically Signed: Sven Taylor MD at 20:41 EDT ,
--- NOTE | 2023-12-09 20:01 | EDS_ITS ---
HPI HPI - Female History of Present Illness Chief Complaint: Female C/O Narrative Narrative: 63-year-old female presents with pain and pressure in the vagina that she has had for the last 3 to 4 days. She states to triage that she feels like everything is going to fall out. It is worse when she stands. Makes her difficult to walk as well. She denies any fevers or chills, no dysuria or hematuria, no problems with bowel movements. She states she even has pressure when she is lying back on the cot. She has not seen an [employer] CLERK in years because she was told she does not need Pap smears anymore. She presents because of the pain and pressure in her vagina. 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 Chest pain History of cardiac arrest Chronic kidney disease Diverticulitis large intestine w/o perforation or abscess w/bleeding Abdominal ascites Pulmonary hypertension, secondary Acute hypotension History of COPD History of diabetes mellitus, type II Bradycardia Chest pain of uncertain etiology History of hypertension History of atrial fibrillation History of CHF (congestive heart failure) Peripheral edema Congestive heart failure Morbid obesity with BMI of 40.0-44.9, adult Pericardial effusion with cardiac tamponade Wears glasses Wears dentures Substance abuse Alcohol use Rash Gout High cholesterol PVD (peripheral vascular disease) Easy bruising Seizures Dietary restriction Gastric reflux Injury of back Vapes nicotine containing substance Fall History of pain when walking History of edema Insomnia Major depression On home oxygen therapy Emphysema, unspecified Neuropathy Cardiology follow-up encounter History of ulceration DKA (diabetic ketoacidosis) Cardiac arrest Lichen sclerosus Macular degeneration Essential hypertension Decreased left ventricular function Paroxysmal atrial fibrillation Diverticulosis Migraine Iron deficiency anemia COPD (chronic obstructive pulmonary disease) CHF (congestive heart failure) Neuropathy Kidney failure Hypothyroid Schizoaffective disorder, bipolar type Emphysema lung Diabetes Heart attack Home Medications ?Medication ?Instructions ?Recorded ?Last Taken ?Type apixaban 5 mg tablet (Eliquis) 5 mg PO BID a. fib. 12/24/22 07/27/23 History atorvastatin 20 mg tablet 20 mg PO DAILY cholesterol 12/24/22 07/27/23 History empagliflozin 10 mg tablet 10 mg PO DAILY diabetes 12/24/22 07/27/23 History (Jardiance) gabapentin 300 mg capsule 300 mg PO 4X/DAY 12/25/22 07/27/23 History albuterol sulfate 90 mcg/actuation 1 inh inhalation PRN PRN shortness 12/31/22 Unknown History aerosol inhaler of breath or wheezing meloxicam 7.5 mg tablet 7.5 mg PO DAILY 01/01/23 07/27/23 History trazodone 100 mg tablet 100 mg PO QHS 01/01/23 07/26/23 History aripiprazole 20 mg tablet 20 mg PO QHS mental health 03/09/23 07/26/23 History pantoprazole 40 mg tablet,delayed 40 mg PO DAILY #30 tabs 03/09/23 07/27/23 Rx release budesonide-formoterol HFA 80 2 inh inhalation BID breathing 04/27/23 07/27/23 History mcg-4.5 mcg/actuation aerosol inhaler (Symbicort) fluoxetine 40 mg capsule 40 mg PO DAILY 04/27/23 07/27/23 History fluticasone propionate 50 1 spray intranasal DAILY PRN 04/27/23 Unknown History mcg/actuation nasal allergy symptoms spray,suspension divalproex 500 mg tablet,extended 500 mg PO DAILY 07/25/23 07/27/23 History release 24 hr famotidine 20 mg tablet 20 mg PO DAILY 07/25/23 07/27/23 History hydrocodone-acetaminophen 5-325mg 1 tab PO BID PRN PRN pain 07/25/23 Unknown History 5mg-325mg levothyroxine 100 mcg tablet 100 mcg PO DAILY 07/25/23 07/27/23 History oxybutynin chloride 5 mg 5 mg PO DAILY 07/25/23 07/27/23 History tablet,extended release 24 hr tirzepatide 2.5 mg/0.5 mL 2.5 mg subcut QWEEK 07/25/23 07/24/23 History subcutaneous pen injector (Mounjaro) furosemide 40 mg tablet 40 mg PO DAILY 30 days #30 tabs 07/30/23 Unknown Rx tiotropium bromide 2.5 2 inh inhalation QDAY #1 ea 08/27/23 Unknown Rx mcg/actuation mist for inhalation (Spiriva Respimat) insulin glargine 100 unit/mL (3 22 unit subcut DAILY 10/13/23 Unknown History mL) subcutaneous pen (Lantus Solostar U-100 Insulin) valbenazine 40 mg capsule 80 mg PO DAILY 10/13/23 Unknown History (Ingrezza) hydrocortisone 1 %-pramoxine 1 % 1 applic IN QHS 1 week #10 grams 10/18/23 Unknown Rx rectal foam (Proctofoam HC) furosemide 20 mg tablet 20 mg PO QDAY 11/30/23 Unknown History nicotine See Rx Instructions transdermal 11/30/23 Unknown Rx 21mg/24hr-14mg/24hr-7mg/24hr daily .COMPLEX #56 patches transderm patches,sequentl Allergy/AdvReac Type Severity Reaction Status Date / Time aspirin Allergy Mild Hives Verified 12/09/23 19:19 erythromycin base Allergy Mild Hives Verified 12/09/23 19:19 Penicillins Allergy Mild Hives Verified 12/09/23 19:19 polyethylene glycol 3350 Allergy Mild Nausea/Vom/ Verified 12/09/23 19:19 (From Miralax) Diarrhea tramadol Allergy Mild Hives Verified 12/09/23 19:19 tomato Allergy Food Verified 12/09/23 19:19 Allergy Family History Mother Heart disease Hypertension Cancer Father Brain aneurysm age 40 CVA (cerebral vascular accident) Cancer Brother Colon cancer Surgical History Hx of vein stripping Hx of toe surgery History of lithotripsy History of delivery History of bilateral cataract extraction History of cholecystectomy H/O: hysterectomy Social History Smoking Status: Current every day smoker tobacco type: cigarettes and e-cigarettes Tobacco: How many years used: 18 Electronic Cigarette Use: with nicotine second hand exposure: No alcohol intake: never substance use type: does not use caffeine: Yes ROS ROS ED ROS Narrative Constitutional: No fever, no chills. HEENT: No sore throat. No neck pain. No loss of vision. No rhinorrhea. Cardiovascular: No chest pain. No palpitations. No pedal edema. Respiratory: No cough, no shortness of breath. Abdominal: No abdominal pain. No nausea. No vomiting. No diarrhea or problems with bowel movements. Genitourinary: No dysuria. No hematuria. Positive pain and pressure in vaginal area. Feels as if all of her organs are going to fall out of her vagina. Musculoskeletal: No myalgias. No arthralgias. Neurologic: No headaches. No dizziness. No lightheadedness. Skin: No rash. No change in color. Psychiatric: No depression. No anxiety. EXAM Physical Exam Narrative Exam Narrative: Afebrile. Vital signs noted. Regular rate and rhythm with intermittent bradycardia. Lungs clear to auscultation bilaterally. Abdomen is soft and nontender without guarding or rebound. Positive bowel sounds. Neurological examination is nonfocal and nonlateralizing. Const Vital Signs: 12/09/23 19:19 Temperature 96.1 F L Temperature Source Temporal Pulse Rate 55 L Respiratory Rate 18 Blood Pressure 148/61 H Blood Pressure Mean 90 Pulse Ox 96 Oxygen Delivery Method Room Air MDM MDM MDM Narrative Medical decision making narrative: Differential diagnosis includes but not limited to pelvic floor instability versus uterine prolapse versus UTI. CT imaging will be obtained as well as basic laboratory work and urinalysis. I discussed pelvic examination with the patient. Chaperoned pelvic examination will be performed to look for obvious uterine prolapse, but as her pain and pressure is worse with standing, it may be more of pelvic floor instability. I reviewed her laboratory work and she has normal white count of 7.3, hemoglobin stable at 9.8, platelet count slightly low 149. She does have a chronic thrombocytopenia in review of her prior laboratories. CMP is significant for BUN of 24 and chronic kidney injury with creatinine 1.88, glucose appropriately elevated at 133 with anion gap low at 4. Urinalysis shows 0-5 WBCs. Although there is leukocyte esterase, I do not feel that antibiotics are indicated. There are 5-10 squamous epithelial cells so I think it is more of a contaminated specimen. I reviewed the radiology report of the CT of the abdomen pelvis and she does not have a uterus. She remembers that she had hysterectomy in the past. There is no acute process noted on the CT of the abdomen and pelvis without contrast. And we discussion of the utility of a pelvic exam, she now declines. She was given Toradol for analgesia. At this point in time, while I am unsure as to the cause of her pelvic and vaginal pain, I still suspect pelvic floor insufficiency or dysfunction. I do feel she can be discharged safely home with follow-up to her primary care provider. Return instructions to the emergency department were reviewed. Disposition is discharged home in stable condition. History & Record Review Discussion w/independent historian: Patient Additional record(s) reviewed:: Prior labs Lab Data Attestation: I reviewed the patient's lab results. Labs: Laboratory Results - last 24 hr 12/09/23 12/09/23 20:08 20:45 WBC 7.3 RBC 3.48 L Hgb 9.8 L Hct 31.4 L MCV 90.2 MCH 28.2 MCHC 31.2 L RDW Std Deviation 48.8 H RDW Coeff of Penny 14.8 H Plt Count 149 L MPV 10.1 Immature Gran % (Auto) 0.300 Neut % (Auto) 64.6 Lymph % (Auto) 21.5 Mcmullen % (Auto) 9.9 Eos % (Auto) 2.9 Baso % (Auto) 0.8 Absolute Neuts (auto) 4.7 Absolute Lymphs (auto) 1.58 Nucleated RBC % 0 Sodium 140 Potassium 3.8 Chloride 106 Carbon Dioxide 30.0 Anion Gap 4 L BUN 24 H Creatinine 1.88 H Est GFR (MDRD) Af Amer 35 L Est GFR (MDRD) Non-Af 29 L BUN/Creatinine Ratio 12.8 Glucose 133 H Calcium 9.3 Total Bilirubin 0.40 AST 16 ALT 15 Alkaline Phosphatase 54 Total Protein 6.2 L Albumin 3.0 L Globulin 3.2 Albumin/Globulin Ratio 0.9 Urine Color Yellow Urine Clarity Clear Urine pH 5.0 Ur Specific [place] 1.015 Urine Protein Negative Urine Glucose (UA) 1000 H Urine Ketones Negative Urine Occult Blood Negative Urine Nitrite Negative Urine Bilirubin Negative Urine Urobilinogen Normal Ur Leukocyte Esterase 500 H Urine RBC 0 SEEN Urine WBC 0-5 SEEN Ur Squamous Epith Cells 5-10 SEEN Urine Bacteria RARE Urine Mucus 0 SEEN Radiography Diagnostic Testing: Clinical Impression(s) from Imaging Studies Abdomen/Pelvis CT 12/09/23 20:00 IMPRESSION: Mild diverticular disease of the descending and sigmoid colon without evidence for acute diverticulitis Status post cholecystectomy and hysterectomy. No evidence for small bowel obstruction or other acute abnormality Electronically Signed: Sven Taylor MD at 20:41 EDT , Discharge Plan Triage Chief Complaint: Female C/O ED Provider: Scott Santamaria Dx/Rx/DC Orders Clinical Impression: Vaginal pain, Pelvic floor weakness in female Instructions: ED Pain, Acute, Uncertain Cause, ED Pelvic Pain, Unknown Cause Prescriptions: No Action atorvastatin 20 mg tablet 20 mg PO DAILY Eliquis 5 mg tablet 5 mg PO BID Jardiance 10 mg tablet 10 mg PO DAILY gabapentin 300 mg capsule 300 mg PO 4X/DAY fluoxetine 40 mg capsule 40 mg PO DAILY fluticasone propionate 50 mcg/actuation spray,suspension 1 spray intranasal DAILY PRN (Reason: allergy symptoms) Patient Comments: instill 2 sprays in each nostril daily budesonide-formoterol [Symbicort] 80-4.5 mcg/actuation HFA aerosol inhaler 2 inh inhalation BID Patient Comments: INHALE TWO PUFFS BY MOUTH TWICE DAILY. RINSE MOUTH AFTER USE Ingrezza 40 mg capsule 80 mg PO DAILY Spiriva Respimat 2.5 mcg/actuation mist 2 inh inhalation QDAY Qty: 1 6RF Rx Instructions: administer at approximately the same time(s) each day furosemide 20 mg tablet 20 mg PO QDAY nicotine 21-14-7 mg/24 hr patch, TD daily, sequential See Rx Instructions transdermal .COMPLEX Qty: 56 0RF Rx Instructions: apply 1-21 mg NICOTINE PATCH daily for 28 days; follow with 1-14 mg PATCH daily for 14 days, then 1-7mg PATCH daily for 14 days transdermal albuterol sulfate 90 mcg/actuation HFA aerosol inhaler 1 inh INHALATION PRN PRN (Reason: shortness of breath or wheezing) trazodone 100 mg tablet 100 mg PO QHS Patient Comments: TAKE 1 TABLET BY MOUTH EVERY DAY AT NIGHT meloxicam 7.5 mg tablet 7.5 mg PO DAILY Patient Comments: TAKE 1 TABLET BY MOUTH EVERY DAY FOR 30DAYS ON A FULL STOMACH aripiprazole 20 mg tablet 20 mg PO QHS Patient Comments: TAKE ONE TABLET BY MOUTH DAILY AT 9AM pantoprazole 40 mg tablet,delayed release (DR/EC) 40 mg PO DAILY Qty: 30 0RF hydrocodone-acetaminophen 5-325 mg tablet 1 tab PO BID PRN PRN (Reason: pain) famotidine 20 mg tablet 20 mg PO DAILY divalproex 500 mg tablet extended release 24 hr 500 mg PO DAILY levothyroxine 100 mcg tablet 100 mcg PO DAILY oxybutynin chloride 5 mg tablet extended release 24hr 5 mg PO DAILY Mounjaro 2.5 mg/0.5 mL pen injector 2.5 mg subcut QWEEK insulin glargine [Lantus Solostar U-100 Insulin] 100 unit/mL (3 mL) insulin pen 22 unit subcut DAILY Proctofoam HC 1-1 % foam 1 applic IN QHS 7 Days Qty: 10 0RF furosemide 40 mg Tablet 40 mg PO DAILY 30 Days Qty: 30 0RF Primary Care Provider: Eric Marion Referrals: Eric Marion, [employer] [Primary Care Provider] - As soon as possible Print Language: Guatemalan Disposition Disposition: Home, Self Care
[2023-12-09 20:30] LABS: ALB/GLOB Ratio 0.9 RATIO (0.9-2.4); AST(SGOT) 16 U/L (15-37); Alanine Aminotransfer ALT/SGPT 15 U/L (13-56); Alkaline Phosphatase 54 U/L (45-117); Anion Gap 4 (5-15); BUN 24 mg/dL (7-18); BUN/Creat Ratio 12.8 RATIO (10-20); Calcium,Total 9.3 mg/dL (8.5-10.1); Chloride 106 mmol/L (98-107); Creatinine, Serum 1.88 mg/dL (0.55-1.02); EST Glomerular Filtration Rate 29 mL/min (>60); Est Glom Filt Rate - Afr Amer 35 mL/min (>60); Globulin 3.2 g/dL (2.2-4.2); Glucose 133 mg/dL (74-106); Potassium 3.8 mmol/L (3.5-5.1); Protein, Total 6.2 g/dL (6.4-8.2); Sodium Level 140 mmol/L (136-145)
[2023-12-09 20:41] LABS: Absolute Lymphocyte Count 1.58 X10^3/uL (0.83-4.51); Absolute Neutrophil Count 4.7 X10^3/uL (2.0-7.7); Basophil# 0.06 X10^3/uL; Basophil% 0.8 % (0-1); Eosinophil# 0.21 X10^3/uL; Eosinophils% 2.9 % (0-5); Hematocrit 31.4 % (37-47); Hemoglobin 9.8 g/dL (12.0-15.0); Lymphocyte # 1.58 X10^3/ul (0.83-4.51); Lymphocyte % 21.5 % (19-41); Mean Corp Hgb Conc 31.2 g/dL (32-36); Mean Corpuscular Hgb 28.2 pg (27.0-32.0); Mean Corpuscular Volume 90.2 fL (81-99); Mean Platelet Vol. 10.1 fl (6.2-12.0); Monocyte# 0.73 X10^3/uL; Monocyte% 9.9 % (0-10); NRBC Flagged by Analyzer 0 % (0-5); Neutrophil # 4.74 X10^3/uL (2.7-7.7); Neutrophil % 64.6 % (47-70); Platelet Count 149 K/mm3 (150-450); RBC Distribution Width CV 14.8 % (11.6-14.6); RBC Distribution Width SD 48.8 fl (35.1-43.9); Red Blood Count 3.48 M/mm3 (4.2-5.4); White Blood Count 7.3 K/mm3 (4.4-11.0)
[2023-12-09 20:55] LABS: Mucous, Urine 0 SEEN /hpf (<or=2+); Red Blood Cells-Urine 0 SEEN /hpf (0-5)
[2023-12-09 21:21] LABS: Color, Urine Yellow (Yellow); Glucose, Dipstick 1000 mg/dl (Normal); Ketone-Dipstick Negative (Negative); Leukocyte Esterase-Dipstick 500 /ul (Negative); Nitrite-Dipstick Negative (Negative); Occult Blood-Urine Negative /ul (Negative); Protein-Dipstick Negative (Negative); Specific Gravity, Urine 1.015 (1.002-1.030); Urine Bilirubin Dipstick Negative (Negative); Urine Clarity Clear (Clear); Urine Urobilinogen Normal (Normal)
[2023-12-09 21:22] LABS: Bacteria RARE /hpf (None Seen); Squamous Epithelial Cells - UA 5-10 SEEN /hpf (5-10)
[2023-12-09 21:23] LABS: White Blood Cells 0-5 SEEN /hpf (0-5)
[2023-12-09] MEDS: Ketorolac 30 MG/ML Syringe IV (21:53)
[2023-12-09 22:12] VITALS: BP 136/86; PULSE 60; RESP 18; TEMP 35.6; O2SAT 96
== END 2023-12-09 22:25 | disposition home or self-care (01) ==
PROVIDERS: Emergency Provider Emergency Medicine; PCP Nurse Practitioner Family; Referring Provider Emergency Medicine; Visit Provider Emergency Medicine
DX: N94.89 Other specified conditions associated with female genital organs and menstrual cycle (principal); I50.9 Heart failure, unspecified; I13.0 Hypertensive heart and chronic kidney disease with heart failure and stage 1 through stage 4 chronic kidney disease, or unspecified chronic kidney disease; J43.9 Emphysema, unspecified; E11.22 Type 2 diabetes mellitus with diabetic chronic kidney disease; E11.40 Type 2 diabetes mellitus with diabetic neuropathy, unspecified; F17.210 Nicotine dependence, cigarettes, uncomplicated; E78.00 Pure hypercholesterolemia, unspecified; K21.9 Gastro-esophageal reflux disease without esophagitis; F17.290 Nicotine dependence, other tobacco product, uncomplicated; D69.6 Thrombocytopenia, unspecified
CPT/HCPCS: 74176; 80053; 81001; 85025; 96374; 99283; A4216

== ENCOUNTER 2023-12-19 18:57 | Emergency (ER) | payer MEDICARE, MEDICAID, SELFPAY ==
[2023-12-19 18:58] VITALS: BP 159/55; PULSE 57; RESP 18; TEMP 36.6; O2SAT 96; BMI 42.0
[2023-12-19 19:40] LABS: Absolute Lymphocyte Count 0.98 X10^3/uL (0.83-4.51); Basophil# 0.05 X10^3/uL; Basophil% 0.7 % (0-1); Eosinophil# 0.29 X10^3/uL; Eosinophils% 4.2 % (0-5); Hematocrit 32.3 % (37-47); Hemoglobin 9.8 g/dL (12.0-15.0); Lymphocyte # 0.98 X10^3/ul (0.83-4.51); Lymphocyte % 14.2 % (19-41); Mean Corp Hgb Conc 30.3 g/dL (32-36); Mean Corpuscular Hgb 27.7 pg (27.0-32.0); Mean Corpuscular Volume 91.2 fL (81-99); Mean Platelet Vol. 9.5 fl (6.2-12.0); Monocyte# 0.52 X10^3/uL; Monocyte% 7.5 % (0-10); NRBC Flagged by Analyzer 0 % (0-5); Neutrophil # 5.04 X10^3/uL (2.7-7.7); Platelet Count 132 K/mm3 (150-450); RBC Distribution Width CV 14.6 % (11.6-14.6); RBC Distribution Width SD 49.4 fl (35.1-43.9); Red Blood Count 3.54 M/mm3 (4.2-5.4); White Blood Count 6.9 K/mm3 (4.4-11.0)
--- NOTE | 2023-12-19 19:47 | EX.ED.DYSGE1 ---
HPI History of Present Illness Chief Complaint: Abd Pain Informant: patient Narrative Narrative: Brought in by EMS from home recurrent pain pelvic region has been on and off for over a week. States she seen the ED for similar she states that image studies performed. Was negative. She denies urinary symptoms. Somewhat poor historian on her evaluation. Reviewing records she had reported concerns for prolapse 3 to 4 days prior to her visit 10 days ago. He states pelvic exam with speculum cannot be performed due to her atrophy and was told it could tear. She declined a pelvic exam. She had a CT scan abdomen pelvis negative for acute process. She had a hysterectomy that she did not disclose at that time. Treated with Toradol with improvement of symptoms. Also reports abdominal hernia repair in the past. There is been no nausea or vomiting. No fevers. Normal bowel movements. Denies any vaginal discharge or abnormal bleeding. 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 Chest pain History of cardiac arrest Chronic kidney disease Diverticulitis large intestine w/o perforation or abscess w/bleeding Abdominal ascites Pulmonary hypertension, secondary Acute hypotension History of COPD History of diabetes mellitus, type II Bradycardia Chest pain of uncertain etiology History of hypertension History of atrial fibrillation History of CHF (congestive heart failure) Peripheral edema Congestive heart failure Morbid obesity with BMI of 40.0-44.9, adult Pericardial effusion with cardiac tamponade Wears glasses Wears dentures Substance abuse Alcohol use Rash Gout High cholesterol PVD (peripheral vascular disease) Easy bruising Seizures Dietary restriction Gastric reflux Injury of back Vapes nicotine containing substance Fall History of pain when walking History of edema Insomnia Major depression On home oxygen therapy Emphysema, unspecified Neuropathy Cardiology follow-up encounter History of ulceration DKA (diabetic ketoacidosis) Cardiac arrest Lichen sclerosus Macular degeneration Essential hypertension Decreased left ventricular function Paroxysmal atrial fibrillation Diverticulosis Migraine Iron deficiency anemia COPD (chronic obstructive pulmonary disease) CHF (congestive heart failure) Neuropathy Kidney failure Hypothyroid Schizoaffective disorder, bipolar type Emphysema lung Diabetes Heart attack Home Medications ?Medication ?Instructions ?Recorded ?Last Taken ?Type apixaban 5 mg tablet (Eliquis) 5 mg PO BID a. fib. 12/24/22 07/27/23 History atorvastatin 20 mg tablet 20 mg PO DAILY cholesterol 12/24/22 07/27/23 History empagliflozin 10 mg tablet 10 mg PO DAILY diabetes 12/24/22 07/27/23 History (Jardiance) gabapentin 300 mg capsule 300 mg PO 4X/DAY 12/25/22 07/27/23 History albuterol sulfate 90 mcg/actuation 1 inh inhalation PRN PRN shortness 12/31/22 Unknown History aerosol inhaler of breath or wheezing meloxicam 7.5 mg tablet 7.5 mg PO DAILY 01/01/23 07/27/23 History trazodone 100 mg tablet 100 mg PO QHS 01/01/23 07/26/23 History aripiprazole 20 mg tablet 20 mg PO QHS mental health 03/09/23 07/26/23 History pantoprazole 40 mg tablet,delayed 40 mg PO DAILY #30 tabs 03/09/23 07/27/23 Rx release budesonide-formoterol HFA 80 2 inh inhalation BID breathing 04/27/23 07/27/23 History mcg-4.5 mcg/actuation aerosol inhaler (Symbicort) fluoxetine 40 mg capsule 40 mg PO DAILY 04/27/23 07/27/23 History fluticasone propionate 50 1 spray intranasal DAILY PRN 04/27/23 Unknown History mcg/actuation nasal allergy symptoms spray,suspension divalproex 500 mg tablet,extended 500 mg PO DAILY 07/25/23 07/27/23 History release 24 hr famotidine 20 mg tablet 20 mg PO DAILY 07/25/23 07/27/23 History hydrocodone-acetaminophen 5-325mg 1 tab PO BID PRN PRN pain 07/25/23 Unknown History 5mg-325mg levothyroxine 100 mcg tablet 100 mcg PO DAILY 07/25/23 07/27/23 History oxybutynin chloride 5 mg 5 mg PO DAILY 07/25/23 07/27/23 History tablet,extended release 24 hr tirzepatide 2.5 mg/0.5 mL 2.5 mg subcut QWEEK 07/25/23 07/24/23 History subcutaneous pen injector (Joseph) furosemide 40 mg tablet 40 mg PO DAILY 30 days #30 tabs 07/30/23 Unknown Rx tiotropium bromide 2.5 2 inh inhalation QDAY #1 ea 08/27/23 Unknown Rx mcg/actuation mist for inhalation (Spiriva Respimat) insulin glargine 100 unit/mL (3 22 unit subcut DAILY 10/13/23 Unknown History mL) subcutaneous pen (Lantus Solostar U-100 Insulin) valbenazine 40 mg capsule 80 mg PO DAILY 10/13/23 Unknown History (Ingrezza) hydrocortisone 1 %-pramoxine 1 % 1 applic KS QHS 1 week #10 grams 10/18/23 Unknown Rx rectal foam (Proctofoam HC) furosemide 20 mg tablet 20 mg PO QDAY 11/30/23 Unknown History nicotine See Rx Instructions transdermal 11/30/23 Unknown Rx 21mg/24hr-14mg/24hr-7mg/24hr daily .COMPLEX #56 patches transderm patches,sequentl nitrofurantoin 100 mg PO Q12H 5 days #10 caps 12/19/23 Unknown Rx monohydrate/macrocrystals 100 mg capsule (Macrobid) Allergy/AdvReac Type Severity Reaction Status Date / Time aspirin Allergy Mild Hives Verified 12/09/23 19:19 erythromycin base Allergy Mild Hives Verified 12/09/23 19:19 Penicillins Allergy Mild Hives Verified 12/09/23 19:19 polyethylene glycol 3350 Allergy Mild Nausea/Vom/ Verified 12/09/23 19:19 (From Miralax) Diarrhea tramadol Allergy Mild Hives Verified 12/09/23 19:19 tomato Allergy Food Verified 12/09/23 19:19 Allergy Family History Mother Heart disease Hypertension Cancer Father Brain aneurysm age 40 CVA (cerebral vascular accident) Cancer Brother Colon cancer Surgical History Hx of vein stripping Hx of toe surgery History of lithotripsy History of delivery History of bilateral cataract extraction History of cholecystectomy H/O: hysterectomy Social History Smoking Status: Current every day smoker tobacco type: cigarettes and e-cigarettes Tobacco: How many years used: 18 Electronic Cigarette Use: with nicotine second hand exposure: No alcohol intake: never substance use type: does not use caffeine: Yes ROS ROS ED Constitutional Constitutional ED: Denies chills, fever(s) or sweats Eyes Eyes: Denies change in vision ENT ENT ED: Denies dysphagia or sore throat Cardiovascular Cardiovascular: Denies chest pain, leg edema, palpitations or racing heartbeat Respiratory/Chest Respiratory/Chest: Denies cough, dyspnea or dyspnea on exertion Gastrointestinal Gastrointestinal: Denies abdominal pain, diarrhea, nausea or vomiting Genitourinary Genitourinary ED: Reports other Details: Pelvic pain ; Denies dysuria, hematuria or urinary frequency Musculoskeletal Musculoskeletal: Denies back pain, extremity pain or neck pain Integumentary Denies rash or wounds Neurologic Neurologic: Denies headache(s), paresthesias or weakness EXAM Physical Exam Const Vital Signs: 12/19/23 18:58 12/19/23 20:58 12/19/23 21:38 Temperature 98 F 96.2 F L Temperature Source Oral Pulse Rate 57 L 70 76 Respiratory Rate 18 20 H 22 H Blood Pressure 159/55 H 158/72 H 158/77 H Blood Pressure Mean 89 100 104 Pulse Ox 96 95 95 Oxygen Delivery Method Room Air Room Air Positive well nourished and well developed General Appearance ED: well developed and NAD HEENT Reports moist mucous membranes normocephalic and atraumatic Eyes EOMs intact bilaterally and conjunctivae normal General Eye ED: Yes normal appearance of both eyes Neck no lymphadenopathy and supple General: Negative for tenderness Chest Wall Chest: Negative for tenderness Resp normal respiratory effort and normal air movement Effort and Inspection: symmetric chest movement; Negative for respiratory distress Cardio regular rate, regular rhythm and no murmurs Peripheral Pulses: pulses 2+ throughout GI normal to inspection, nondistended, normoactive bowel sounds and non-tender Palpation: Negative for guarding or rebound tenderness present 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 No fluctuance or induration of external vaginal area. Back/Spine no CVA tenderness and no thoracic nor lumbar tenderness Extremity normal to inspection General Extremety ED: Negative for edema or tenderness General Extremity: Negative for edema Neuro oriented x3 and no sensory deficits noted Sensorium / Orientation: awake and alert Skin no rashes or lesions noted and no wounds MDM MDM MDM Narrative Medical decision making narrative: Interventions / MDM: Differential diagnosis: Pelvic pain, UTI Diagnosis considered but do not suspect: No prolapse seen vaginal hua. My EKG interpretation: N/A Imaging independently reviewed and interpreted by myself: N/A External documents reviewed: ED visit from [address] Labs are stable. Test considered but not ordered:N/A ED course: Patient initial poor story and pelvic pain. Labs were drawn urine ordered. Will treat with Toradol. In the interim reviewed records had a CT abdomen pelvis that was negative, previous hysterectomy. Urine was contaminated. She was treated with Toradol. There was discussion for pelvic floor instability with the patient at that time. Labs stable with CKD. Additional records noted she is on Eliquis history of paroxysmal A-fib. Urine no signs of infection. Urine culture sent. Started on Macrobid. She will use Tylenol as needed. She is given follow-up with gynecology as an outpatient for pelvic discomfort is recurrent. All questions were answered. Re-evaluation: stable Disposition discussed with patient/family/significant other: Patient Case discussed with consulting clinician: N/A This note was generated with [employer] dictation software. It may contain incorrect words, spelling, and punctuation that were not noted in checking the note before signing. Lab Data Labs: Laboratory Results - last 24 hr 12/19/23 12/19/23 19:30 19:50 WBC 6.9 RBC 3.54 L Hgb 9.8 L Hct 32.3 L MCV 91.2 MCH 27.7 MCHC 30.3 L RDW Std Deviation 49.4 H RDW Coeff of Penny 14.6 Plt Count 132 L MPV 9.5 Immature Gran % (Auto) 0.400 Neut % (Auto) 73.0 H Lymph % (Auto) 14.2 L [place] % (Auto) 7.5 Eos % (Auto) 4.2 Baso % (Auto) 0.7 Absolute Neuts (auto) 5.0 Absolute Lymphs (auto) 0.98 Nucleated RBC % 0 Sodium 140 Potassium 3.9 Chloride 108 H Carbon Dioxide 28.0 Anion Gap 3 L BUN 24 H Creatinine 1.94 H Estim Creat Clear Calc 34.45 Est GFR (MDRD) Af Amer 33 L Est GFR (MDRD) Non-Af 28 L BUN/Creatinine Ratio 12.4 Glucose 150 H Calcium 9.0 Urine Color Yellow Urine Clarity Sl. Cloudy Urine pH 6.0 Ur Specific [place] 1.015 Urine Protein Negative Urine Glucose (UA) 1000 H Urine Ketones Negative Urine Occult Blood 10 H Urine Nitrite Negative Urine Bilirubin Negative Urine Urobilinogen Normal Ur Leukocyte Esterase 25 H Urine RBC 0 SEEN Urine WBC 5-10 SEEN Ur Squamous Epith Cells 0 SEEN Urine Bacteria 1+ Urine Mucus 0 SEEN Discharge Plan Triage Chief Complaint: Abd Pain ED Provider: Micky Roa Dx/Rx/DC Orders Clinical Impression: Pelvic pain, UTI (urinary tract infection), Chronic anticoagulation, CKD (chronic kidney disease) Instructions: Urinary Tract Infections in Women, ED Pelvic Pain, Unknown Cause Prescriptions: New nitrofurantoin monohyd/m-cryst [Macrobid] 100 mg capsule 100 mg PO Q12H 5 Days Qty: 10 0RF Rx Instructions: must administer with a meal/food No Action atorvastatin 20 mg tablet 20 mg PO DAILY Eliquis 5 mg tablet 5 mg PO BID Jardiance 10 mg tablet 10 mg PO DAILY gabapentin 300 mg capsule 300 mg PO 4X/DAY fluoxetine 40 mg capsule 40 mg PO DAILY fluticasone propionate 50 mcg/actuation spray,suspension 1 spray intranasal DAILY PRN (Reason: allergy symptoms) Patient Comments: instill 2 sprays in each nostril daily budesonide-formoterol [Symbicort] 80-4.5 mcg/actuation HFA aerosol inhaler 2 inh inhalation BID Patient Comments: INHALE TWO PUFFS BY MOUTH TWICE DAILY. RINSE MOUTH AFTER USE Ingrezza 40 mg capsule 80 mg PO DAILY Spiriva Respimat 2.5 mcg/actuation mist 2 inh inhalation QDAY Qty: 1 6RF Rx Instructions: administer at approximately the same time(s) each day furosemide 20 mg tablet 20 mg PO QDAY nicotine 21-14-7 mg/24 hr patch, TD daily, sequential See Rx Instructions transdermal .COMPLEX Qty: 56 0RF Rx Instructions: apply 1-21 mg NICOTINE PATCH daily for 28 days; follow with 1-14 mg PATCH daily for 14 days, then 1-7mg PATCH daily for 14 days transdermal albuterol sulfate 90 mcg/actuation HFA aerosol inhaler 1 inh INHALATION PRN PRN (Reason: shortness of breath or wheezing) trazodone 100 mg tablet 100 mg PO QHS Patient Comments: TAKE 1 TABLET BY MOUTH EVERY DAY AT NIGHT meloxicam 7.5 mg tablet 7.5 mg PO DAILY Patient Comments: TAKE 1 TABLET BY MOUTH EVERY DAY FOR 30DAYS ON A FULL STOMACH aripiprazole 20 mg tablet 20 mg PO QHS Patient Comments: TAKE ONE TABLET BY MOUTH DAILY AT 9AM pantoprazole 40 mg tablet,delayed release (DR/EC) 40 mg PO DAILY Qty: 30 0RF hydrocodone-acetaminophen 5-325 mg tablet 1 tab PO BID PRN PRN (Reason: pain) famotidine 20 mg tablet 20 mg PO DAILY divalproex 500 mg tablet extended release 24 hr 500 mg PO DAILY levothyroxine 100 mcg tablet 100 mcg PO DAILY oxybutynin chloride 5 mg tablet extended release 24hr 5 mg PO DAILY Mounjaro 2.5 mg/0.5 mL pen injector 2.5 mg subcut QWEEK insulin glargine [Lantus Solostar U-100 Insulin] 100 unit/mL (3 mL) insulin pen 22 unit subcut DAILY Proctofoam HC 1-1 % foam 1 applic [place] QHS 7 Days Qty: 10 0RF furosemide 40 mg Tablet 40 mg PO DAILY 30 Days Qty: 30 0RF Primary Care Provider: Eric Marion Referrals: Mague Owusu MD [Med Staff - Active Staff] - 1-2 Weeks Eric Marion, SOFTWARE ENGINEER INTERN[employer] [Primary Care Provider] - 1 Week Print Language: Marshallese Disposition Disposition: Home, Self Care Discharge Date/Time: 12/19/23 21:56
[2023-12-19] MEDS: Ketorolac 15 MG/ML Vial IV (19:50)
[2023-12-19 19:55] LABS: Anion Gap 3 (5-15); BUN 24 mg/dL (7-18); BUN/Creat Ratio 12.4 RATIO (10-20); Chloride 108 mmol/L (98-107); Creatinine, Serum 1.94 mg/dL (0.55-1.02); EST Glomerular Filtration Rate 28 mL/min (>60); Est Glom Filt Rate - Afr Amer 33 mL/min (>60); Estimated Creatinine Clearance 34.45 ml/min; Glucose 150 mg/dL (74-106); Potassium 3.9 mmol/L (3.5-5.1); Sodium Level 140 mmol/L (136-145)
[2023-12-19 19:59] LABS: Mucous, Urine 0 SEEN /hpf (<or=2+); Red Blood Cells-Urine 0 SEEN /hpf (0-5); Squamous Epithelial Cells - UA 0 SEEN /hpf (5-10)
[2023-12-19 20:04] LABS: Color, Urine Yellow (Yellow); Glucose, Dipstick 1000 mg/dl (Normal); Ketone-Dipstick Negative (Negative); Leukocyte Esterase-Dipstick 25 /ul (Negative); Nitrite-Dipstick Negative (Negative); Occult Blood-Urine 10 /ul (Negative); Protein-Dipstick Negative (Negative); Specific Gravity, Urine 1.015 (1.002-1.030); Urine Bilirubin Dipstick Negative (Negative); Urine Clarity Sl. Cloudy (Clear); Urine Urobilinogen Normal (Normal)
[2023-12-19 20:35] LABS: White Blood Cells 5-10 SEEN /hpf (0-5)
[2023-12-19 20:36] LABS: Bacteria 1+ /hpf (None Seen)
[2023-12-19 20:58] VITALS: BP 158/72; PULSE 70; RESP 20; O2SAT 95
[2023-12-19 21:38] VITALS: BP 158/77; PULSE 76; RESP 22; TEMP 35.7; O2SAT 95
[2023-12-19] MEDS: Nitrofurantoin Macrocrystals 100 MG Capsule PO (21:39)
== END 2023-12-19 21:56 | disposition home or self-care (01) ==
PROVIDERS: Emergency Provider Emergency Medicine; PCP Nurse Practitioner Family; Visit Provider Emergency Medicine
DX: N39.0 Urinary tract infection, site not specified (principal); I50.9 Heart failure, unspecified; I13.0 Hypertensive heart and chronic kidney disease with heart failure and stage 1 through stage 4 chronic kidney disease, or unspecified chronic kidney disease; J43.9 Emphysema, unspecified; I48.0 Paroxysmal atrial fibrillation; E11.40 Type 2 diabetes mellitus with diabetic neuropathy, unspecified; E11.22 Type 2 diabetes mellitus with diabetic chronic kidney disease; F17.210 Nicotine dependence, cigarettes, uncomplicated; Z79.01 Long term (current) use of anticoagulants; E78.00 Pure hypercholesterolemia, unspecified; N18.9 Chronic kidney disease, unspecified; Z79.899 Other long term (current) drug therapy; F17.290 Nicotine dependence, other tobacco product, uncomplicated
CPT/HCPCS: 80048; 81001; 85025; 87077; 87086; 87088; 87186; 96374; 99283; A4216

== ENCOUNTER → 2023-12-22 | Outpatient (CLI) | payer MEDICARE, MEDICAID, SELFPAY ==
--- NOTE | 2023-12-22 06:47 | MRI_ITS ---
HISTORY: Back pain with bilateral leg cramps, fell approximately one year ago. TECHNIQUE: Multiplanar and multisequence MR images of the lumbar spine were obtained without intravenous contrast. 147 images. COMPARISON: CT 12/09/2023, MR 02/18/2023. FINDINGS: VERTEBRAE: Vertebral body heights maintained. Mild degenerative endplate changes. No other significant bone marrow signal abnormality. ALIGNMENT: No anterior or posterior subluxation. CONUS: Normal morphology and position of the conus medullaris at T12/L1. INTERVERTEBRAL DISCS: T12-L1: Very mild disc bulge without significant central canal stenosis or foraminal narrowing based on the sagittal images, similar to prior. L1-2: Mild disc bulge with facet arthropathy resulting in minimal narrowing of the thecal sac and bilateral foramina, similar to prior. L2-3: Very mild disc bulge with facet arthropathy resulting in minimal narrowing of the thecal sac and mild bilateral foraminal narrowing, similar to prior. L3-4: Mild disc bulge with facet arthropathy superimposed on a developmentally narrow spinal canal resulting in mild-moderate central canal stenosis, moderate left, and mild-moderate right foraminal narrowing similar to prior. L4-5: Mild disc bulge with advanced facet arthropathy superimposed on a developmentally narrow spinal canal resulting in increased markedly severe central canal stenosis, severe effacement of the thecal sac, bilateral nerve root impingement, and severe bilateral foraminal narrowing. 8 mm right posterior synovial cyst. L5-S1: Mild disc bulge eccentric to the right and facet arthropathy resulting in mild right foraminal narrowing, similar to prior. SOFT TISSUES: Posterior subcutaneous edema. MRI/Spine Lumbar (Routine) IMPRESSION: Multilevel degenerative change with increased critically severe spinal canal stenosis at L4-5. Electronically Signed: Brittany Joel MD at 16:01 EDT ,
== END | disposition home or self-care (01) ==
LOC: MRI 05:45
PROVIDERS: PCP Nurse Practitioner Family; Referring Provider Student in an Organized Health Care Education/Training Program; Visit Provider Student in an Organized Health Care Education/Training Program
DX: M54.16 Radiculopathy, lumbar region (principal)
CPT/HCPCS: 72148

== ENCOUNTER → 2024-01-12 | Outpatient (CLI) | payer MEDICARE, MEDICAID, SELFPAY ==
[2024-01-12 11:29] LABS: Absolute Neutrophil Count 5.6 X10^3/uL (2.0-7.7); Basophil# 0.06 X10^3/uL; Basophil% 0.8 % (0-1); Eosinophil# 0.44 X10^3/uL; Eosinophils% 5.6 % (0-5); Hematocrit 39.1 % (37-47); Hemoglobin 12.4 g/dL (12.0-15.0); Mean Corp Hgb Conc 31.7 g/dL (32-36); Mean Corpuscular Hgb 28.5 pg (27.0-32.0); Mean Corpuscular Volume 89.9 fL (81-99); Mean Platelet Vol. 9.4 fl (6.2-12.0); Monocyte# 0.59 X10^3/uL; Monocyte% 7.5 % (0-10); NRBC Flagged by Analyzer 0 % (0-5); Neutrophil # 5.64 X10^3/uL (2.7-7.7); Neutrophil % 71.6 % (47-70); Platelet Count 192 K/mm3 (150-450); RBC Distribution Width CV 14.5 % (11.6-14.6); RBC Distribution Width SD 47.5 fl (35.1-43.9); RET-HE 31.5 pg (30-35); Red Blood Count 4.35 M/mm3 (4.2-5.4); Reticulocyte Count 1.47 % (0.5-1.5); White Blood Count 7.9 K/mm3 (4.4-11.0)
[2024-01-12 11:34] LABS: Erythrocyte Sedimentation Rate 19 mm/hr (0-30)
[2024-01-12 12:15] LABS: ALB/GLOB Ratio 0.9 RATIO (0.9-2.4); AST(SGOT) 19 U/L (15-37); Alanine Aminotransfer ALT/SGPT 13 U/L (13-56); Albumin, Serum 3.5 g/dL (3.2-5.0); Alkaline Phosphatase 66 U/L (45-117); Anion Gap 5 (5-15); BUN 29 mg/dL (7-18); BUN/Creat Ratio 15.8 RATIO (10-20); Calcium,Total 9.5 mg/dL (8.5-10.1); Chloride 103 mmol/L (98-107); Creatinine, Serum 1.83 mg/dL (0.55-1.02); EST Glomerular Filtration Rate 30 mL/min (>60); Est Glom Filt Rate - Afr Amer 36 mL/min (>60); Ferritin 27 ng/mL (8-252); Globulin 3.9 g/dL (2.2-4.2); Glucose 121 mg/dL (74-106); Iron 44 ug/dL (50-170); Iron Binding Capacity,Total 399 ug/dL (250-450); LDH 239 U/L (84-246); Magnesium 2.1 mg/dL (1.6-2.6); Phosphorus 2.7 mg/dL (2.5-4.9); Potassium 3.9 mmol/L (3.5-5.1); Protein, Total 7.4 g/dL (6.4-8.2); Sodium Level 139 mmol/L (136-145); Uric Acid 7.1 mg/dL (2.6-6.0)
[2024-01-12 12:28] LABS: HIV - WCH Non-Reactive (Nonreactive); Vitamin B12 968 pg/mL (211-911)
[2024-01-13 14:11] LABS: Erythropoietin 28.5 mIU/mL (2.6-18.5); HEPATITIS B SURFACE AG Negative (Negative); Hep B Surface Antibodies Non Reactive (.); Hepatitis B Core Ab Total Negative (Negative); Hepatitis C Ab Non Reactive (Non Reactive)
== END | disposition home or self-care (01) ==
LOC: MRI 11:09
PROVIDERS: Internal Medicine Medical Oncology; PCP Nurse Practitioner Family; Referring Provider Orthopaedic Surgery Orthopaedic Surgery of the Spine; Visit Provider Orthopaedic Surgery Orthopaedic Surgery of the Spine
DX: D64.9 Anemia, unspecified (principal); G95.20 Unspecified cord compression; D69.6 Thrombocytopenia, unspecified
CPT/HCPCS: 36415; 72146; 80053; 82607; 82668; 82728; 82746; 83540; 83550; 83615; 83735; 84100; 84550; 85025; 85045; 85652; 86140; 86703; 86704; 86705; 86706; 86707; 86803; 87340; 87350

== ENCOUNTER 2024-01-23 17:02 | Inpatient (IN) | payer MEDICARE, MEDICAID, SELFPAY ==
[2024-01-23] VITALS (8 sets, daily range): BP systolic 105–169; BP diastolic 51–118; PULSE 48–77; RESP 12–22; TEMP 35.9–36.6; O2SAT 93–99; BMI 39.2; BMI 35.2
--- NOTE | 2024-01-23 17:38 | CT_ITS ---
INDICATION: AMS, recent fall EXAMINATION: CT BRAIN - CT Head or Brain W/O Contrast Injection TECHNIQUE: Multiple axial images were obtained of the head without intravenous contrast. A radiation dose optimization technique was used for this scan. IV Contrast dosage and agent: None. COMPARISON: None. FINDINGS: BRAIN PARENCHYMA: No intra- or extra-axial hemorrhage. No evidence of acute infarct. No intracranial mass or mass effect. There is preservation of the reed/white matter interface. Posterior fossa structures are unremarkable. CSF SPACES: Appropriate for age. No hydrocephalus. Basal cisterns are patent. CALVARIUM, SKULL BASE, PARANASAL SINUSES AND MASTOID AIR CELLS: Clear. No discrete lytic or blastic abnormalities. CT/Brain/Head without Contrast IMPRESSION: No acute intracranial findings. Electronically Signed: Jj Florentino MD at 19:02 EST ,
--- NOTE | 2024-01-23 17:56 | EDS_ITS ---
HPI History of Present Illness Chief Complaint: Confusion Informant: patient Narrative Narrative: Patient is 63-year-old female with history of diabetes mellitus, cardiac arrest, atrial fibrillation (on Eliquis), renal failure (previously on dialysis but no longer), HTN, congestive heart failure, seizures, schizoaffective disorder, emphysema presenting for generalized weakness. Patient arrived via EMS. She states that she did not want to come in but her friend was worried about her since she was sleeping all day. Patient states she got worked up because an argument with family since she missed dinner yesterday and that is what she was sleeping. She notes that she needs to have back surgery this is with Dr. Goyal. She does tell me that she had a fall couple days ago. She denies any loss of conscious. She states she landed on her body but did not hit her head. No report of loss of consciousness. She denies any associate headache, change in appetite, fever, urinary symptoms, nausea, vomiting, abdominal pain or chest pain. Has no complaints at this time. EMS reports that her friend states that the patient is acting very strange and that her tremors are worse than normal. [facility] Medical History Low platelet count Anemia History of ESBL E. 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 Chest pain History of cardiac arrest Chronic kidney disease Diverticulitis large intestine w/o perforation or abscess w/bleeding Abdominal ascites Pulmonary hypertension, secondary Acute hypotension History of COPD History of diabetes mellitus, type II Bradycardia Chest pain of uncertain etiology History of hypertension History of atrial fibrillation History of CHF (congestive heart failure) Peripheral edema Congestive heart failure Morbid obesity with BMI of 40.0-44.9, adult Pericardial effusion with cardiac tamponade Wears glasses Wears dentures Substance abuse Alcohol use Rash Gout High cholesterol PVD (peripheral vascular disease) Easy bruising Seizures Dietary restriction Gastric reflux Injury of back Vapes nicotine containing substance Fall History of pain when walking History of edema Insomnia Major depression On home oxygen therapy Emphysema, unspecified Neuropathy Cardiology follow-up encounter History of ulceration DKA (diabetic ketoacidosis) Cardiac arrest Lichen sclerosus Macular degeneration Essential hypertension Decreased left ventricular function Paroxysmal atrial fibrillation Diverticulosis Migraine Iron deficiency anemia COPD (chronic obstructive pulmonary disease) CHF (congestive heart failure) Neuropathy Kidney failure Hypothyroid Schizoaffective disorder, bipolar type Emphysema lung Diabetes Heart attack Home Medications ?Medication ?Instructions ?Recorded ?Last Taken ?Type apixaban 5 mg tablet (Eliquis) 5 mg PO BID a. fib. 12/24/22 07/27/23 History atorvastatin 20 mg tablet 20 mg PO DAILY cholesterol 12/24/22 07/27/23 History gabapentin 300 mg capsule 300 mg PO 4X/DAY 12/25/22 07/27/23 History albuterol sulfate 90 mcg/actuation 1 inh inhalation PRN PRN shortness 12/31/22 Unknown History aerosol inhaler of breath or wheezing trazodone 100 mg tablet 100 mg PO QHS 01/01/23 07/26/23 History aripiprazole 20 mg tablet 20 mg PO QHS mental health 03/09/23 07/26/23 History budesonide-formoterol HFA 80 2 inh inhalation BID breathing 04/27/23 07/27/23 History mcg-4.5 mcg/actuation aerosol inhaler (Symbicort) fluticasone propionate 50 1 spray intranasal DAILY PRN 04/27/23 Unknown History mcg/actuation nasal allergy symptoms spray,suspension divalproex 500 mg tablet,extended 500 mg PO DAILY 07/25/23 07/27/23 History release 24 hr famotidine 20 mg tablet 20 mg PO DAILY 07/25/23 07/27/23 History hydrocodone-acetaminophen 5-325mg 1 tab PO Q8H PRN pain 07/25/23 Unknown History 5mg-325mg levothyroxine 100 mcg tablet 100 mcg PO DAILY 07/25/23 07/27/23 History oxybutynin chloride 5 mg 5 mg PO DAILY 07/25/23 07/27/23 History tablet,extended release 24 hr tiotropium bromide 2.5 2 inh inhalation QDAY #1 ea 08/27/23 Unknown Rx mcg/actuation mist for inhalation (Spiriva Respimat) insulin glargine 100 unit/mL (3 22 unit subcut DAILY 10/13/23 Unknown History mL) subcutaneous pen (Lantus Solostar U-100 Insulin) benazepril 5 mg tablet 5 mg PO QDAY 12/24/23 Unknown History clotrimazole-betamethasone 1 1 applic topical BID 12/24/23 Unknown History %-0.05 % topical cream diclofenac sodium 1 % topical gel 2 g topical ONCE 12/24/23 Unknown History empagliflozin 25 mg tablet 25 mg PO QAM 12/24/23 Unknown History (Jardiance) epinephrine 0.3 mg/0.3 mL 0.3 mg IM ONCE 12/24/23 Unknown History injection, auto-injector (EpiPen 2-Wayne) meloxicam 7.5 mg tablet 7.5 mg PO QDAY 12/24/23 Unknown History naloxegol 25 mg tablet (Movantik) 25 mg PO QAM 12/24/23 Unknown History pantoprazole 40 mg tablet,delayed 40 mg PO QDAY 12/24/23 Unknown History release furosemide 80 mg tablet 40 mg PO QDAY 01/06/24 Unknown History nystatin 100,000 unit/gram topical 1 applic topical BID 01/06/24 Unknown History powder sucralfate 1 gram tablet 1 g PO QAC 01/06/24 Unknown History tirzepatide 2.5 mg/0.5 mL 5 mg subcut QWEEK 01/06/24 Unknown History subcutaneous pen injector (Mounjaro) valbenazine 80 mg capsule 80 mg PO HS 01/06/24 Unknown History (Ingrezza) Allergy/AdvReac Type Severity Reaction Status Date / Time aspirin Allergy Mild Hives Verified 01/21/24 14:11 erythromycin base Allergy Mild Hives Verified 01/21/24 14:11 Penicillins Allergy Mild Hives Verified 01/21/24 14:11 polyethylene glycol 3350 Allergy Mild Nausea/Vom/ Verified 01/21/24 14:11 (From Miralax) Diarrhea tramadol Allergy Mild Hives Verified 01/21/24 14:11 tomato Allergy Food Verified 01/21/24 14:11 Allergy Family History Mother Heart disease Hypertension Cancer Father Brain aneurysm age 40 CVA (cerebral vascular accident) Cancer Brother Colon cancer Surgical History History of bilateral knee replacement Hx of vein stripping Hx of toe surgery History of lithotripsy History of delivery History of bilateral cataract extraction History of cholecystectomy H/O: hysterectomy Social History Smoking Status: Current every day smoker tobacco type: cigarettes and e- cigarettes Tobacco: How many years used: 18 Electronic Cigarette Use: with nicotine second hand exposure: No alcohol intake: never substance use type: does not use caffeine: Yes ROS ROS ED Constitutional Constitutional ED: Denies chills or fever(s) Eyes Eyes: Denies change in vision Cardiovascular Cardiovascular: Denies chest pain Respiratory/Chest Respiratory/Chest: Denies cough or dyspnea Gastrointestinal Gastrointestinal: Denies abdominal pain, diarrhea, nausea or vomiting Genitourinary Genitourinary ED: Denies dysuria or urinary frequency Musculoskeletal Musculoskeletal: Reports back pain; Denies arthralgias or myalgias Integumentary Denies rash Neurologic Neurologic: Reports other Details: Chronic tremor ; Denies paresthesias Psychiatric Psychiatric: Denies anxiety or depression Hematologic/Lymphatic Hematologic/Lymphatic: Reports easy bleeding and easy bruising EXAM Physical Exam Const Vital Signs: 01/23/24 17:02 01/23/24 18:06 01/23/24 19:00 Temperature 97.0 F L 98 F 97.5 F L Temperature Source Temporal Temporal Temporal Pulse Rate 77 54 L 54 L Respiratory Rate 19 H 22 H 14 Blood Pressure 169/118 H 120/57 L 114/51 L Blood Pressure Mean 135 78 72 Pulse Ox 96 99 93 Oxygen Delivery Method Room Air Room Air Room Air 01/23/24 19:15 01/23/24 20:10 Temperature 96.7 F L Temperature Source Axillary Pulse Rate 53 L 49 L Respiratory Rate 16 12 Blood Pressure 105/56 L 125/57 H Blood Pressure Mean 72 79 Pulse Ox 96 97 Oxygen Delivery Method Room Air Room Air Constitutional Narrative: Chronically ill-appearing, no acute distress HEENT Reports TM's clear and dry mucous membranes Tympanic Membrane ED: Yes TM's clear Mouth ED: Yes dry mucous membranes Mouth: dry mucous membranes Eyes PERRL and EOMs intact bilaterally General Eye ED: Negative for scleral icterus Neck supple and no JVD Chest Wall inspection of chest normal and palpation of chest normal Resp normal respiratory effort and clear to auscultation bilaterally Cardio regular rate and regular rhythm GI normal to inspection, nondistended, normoactive bowel sounds and non-tender Back/Spine no CVA tenderness Extremity normal to inspection General Extremety ED: Yes edema General Extremity: edema Neuro Neuro Narrative: Generally weak. Oriented to place and self. Patient slightly perseverating speech. Subtle tremor of the extremities present. Sensorium / Orientation: alert and orientation impaired Psych mental status grossly normal Mood & Affect: tearful Skin no rashes or lesions noted and no wounds MDM MDM MDM Narrative Medical decision making narrative: Patient is evaluated for report of increased confusion. Patient did have a fall recently but states she did not hit her head. Patient is perseverating the emergency room. She is ANO x 2. She does appear dehydrated and generally weak. Differential and includes encephalopathy, rhabdomyolysis, acute dehydration, CHELSEY, symptomatic anemia, urinary tract infection, pneumonia, hyperammoniaemia, intracranial hemorrhage, stroke, ACS. Patient's initial vital signs significant for hypertension but that does normalize while in the ER without further intervention. Patient does also become bradycardic while sleeping however her pressure stable. CBC does show mild anemia with a hemoglobin 11.3 however this is actually above her baseline of 8-9. CMP does show acute on chronic renal insufficiency. Her creatinine today is 2.32 however her baseline appears to be 1.8-1.9. Urinalysis is concerned with infection with 500 leukocyte esterase, 5-10 white blood cells and 1+ bacteria. She also has 0-5 hyaline cast seen her urine analysis further consistent with some dehydration. Her ammonia level is normal. EKG does not show acute ischemic changes or ST abnormalities. VBG is obtained to ensure that patient is not hypercapnic/acidotic. Shows mild alkalosis which is not consistent with hypercapnia. Patient is started on ertapenem for concern of urinary tract infection given she had recent history of ESBL and has a history of allergy to penicillin (hives). Will be admitted for further treatment of her encephalopathy and concern for urinary tract infection as well as dehydration. Case discussed immunization, Dr. Minor Lab Data Attestation: I reviewed the patient's lab results. Labs: Laboratory Results - last 24 hr 01/23/24 01/23/24 01/23/24 17:45 17:52 17:53 WBC 10.8 RBC 4.04 L Hgb 11.3 L Hct 36.8 L MCV 91.1 MCH 28.0 MCHC 30.7 L RDW Std Deviation 49.4 H RDW Coeff of Penny 14.8 H Plt Count 209 MPV 10.1 Immature Gran % (Auto) 0.400 Neut % (Auto) 74.3 H Lymph % (Auto) 12.3 L [place] % (Auto) 9.2 Eos % (Auto) 3.2 Baso % (Auto) 0.6 Absolute Neuts (auto) 8.0 H Absolute Lymphs (auto) 1.33 Nucleated RBC % 0 Sodium 138 Potassium 3.5 Chloride 104 Carbon Dioxide 29.0 Anion Gap 5 BUN 62 H Creatinine 2.32 H Estim Creat Clear Calc 27.71 Est GFR (MDRD) Af Amer 27 L Est GFR (MDRD) Non-Af 22 L BUN/Creatinine Ratio 26.7 H Glucose 98 Calcium 9.4 Phosphorus 3.6 Magnesium 2.4 Total Bilirubin 0.30 AST 20 ALT 16 Alkaline Phosphatase 61 Ammonia Total Creatine Kinase 205 H Total Protein 7.1 Albumin 3.3 Globulin 3.8 Albumin/Globulin Ratio 0.9 Urine Color Yellow Urine Clarity Sl. Cloudy Urine pH 5.0 Ur Specific [place] 1.015 Urine Protein 30 H Urine Glucose (UA) 100 H Urine Ketones Negative Urine Occult Blood 25 H Urine Nitrite Negative Urine Bilirubin Negative Urine Urobilinogen Normal Ur Leukocyte Esterase 500 H Urine RBC 5-10 SEEN Urine WBC 5-10 SEEN Ur Squamous Epith Cells 0-5 SEEN Urine Bacteria 1+ Hyaline Casts 0-5 SEEN Urine Mucus 1+ 01/23/24 18:46 WBC RBC Hgb Hct MCV MCH MCHC RDW Std Deviation RDW Coeff of Penny Plt Count MPV Immature Gran % (Auto) Neut % (Auto) Lymph % (Auto) [place] % (Auto) Eos % (Auto) Baso % (Auto) Absolute Neuts (auto) Absolute Lymphs (auto) Nucleated RBC % Sodium Potassium Chloride Carbon Dioxide Anion Gap BUN Creatinine Estim Creat Clear Calc Est GFR (MDRD) Af Amer Est GFR (MDRD) Non-Af BUN/Creatinine Ratio Glucose Calcium Phosphorus Magnesium Total Bilirubin AST ALT Alkaline Phosphatase Ammonia 22.0 Total Creatine Kinase Total Protein Albumin Globulin Albumin/Globulin Ratio Urine Color Urine Clarity Urine pH Ur Specific [place] Urine Protein Urine Glucose (UA) Urine Ketones Urine Occult Blood Urine Nitrite Urine Bilirubin Urine Urobilinogen Ur Leukocyte Esterase Urine RBC Urine WBC Ur Squamous Epith Cells Urine Bacteria Hyaline Casts Urine Mucus ABG Data ABG results: ABG 01/23/24 18:56 Specimen Type DEIDRA Sample Site Not entered VBG pH 7.48 H VBG pO2 42 H VBG HCO3 30 H VBG Total CO2 31 VBG O2 Sat (Calc) 81 H VBG Base Excess 6 H POC Mix VBG pCO2 Pt Tmp 40.1 L O2 Delivery Device Room Air Radiography Diagnostic Testing: Clinical Impression(s) from Imaging Studies Brain CT 01/23/24 17:38 IMPRESSION: No acute intracranial findings. Electronically Signed: Jj Florentino MD at 19:02 EST Reading Location ID and State: [facility] / [place] Tel , Service support , Rhythm Strip Rhythm Strip: Sinus Rhythm Rate: 50 Ectopy: None EKG Initial EKG: Attestation: I personally reviewed and interpreted this EKG as follows: Interpretation: Sinus Bradycardia Comments: Sinus bradycardia at a rate of 50 beats per minutes Normal axis Normal intervals Normal ST segments Compared to prior EKG on 07/27/2023, no acute changes Management Discussion w/another healthcare provider: Hospitalist Discharge Plan Dx/Rx/DC Orders Clinical Impression: Altered mental status, UTI (urinary tract infection), Elevated CK, Weakness, Dehydration Disposition Disposition: Acute Care Hospital [facility] Discharge Date/Time: 01/23/24 21:18
--- NOTE | 2024-01-23 18:02 | EKG12_ITS ---
Test Reason : DYSRHYTHMIA Blood Pressure : */* mmHG Vent. Rate : 50 BPM Atrial Rate : 50 BPM P-R Int : 144 ms QRS Dur : 86 ms QT Int : 466 ms P-R-T Axes : -62 48 64 degrees QTcB Int : 424 ms Unusual P axis, possible ectopic atrial bradycardia Nonspecific T wave abnormality Abnormal ECG Confirmed by TISHA HERRING, AMMON ([id number]), news copy editor CHINTAN KHAN ([id number]) on 01/24/2024 9:55:24 AM Referred By: Confirmed By: AMMON GILES MD
[2024-01-23 18:08] LABS: Color, Urine Yellow (Yellow); Glucose, Dipstick 100 mg/dl (Normal); Ketone-Dipstick Negative (Negative); Leukocyte Esterase-Dipstick 500 /ul (Negative); Nitrite-Dipstick Negative (Negative); Occult Blood-Urine 25 /ul (Negative); Protein-Dipstick 30 mg/dl (Negative); Specific Gravity, Urine 1.015 (1.002-1.030); Urine Bilirubin Dipstick Negative (Negative); Urine Clarity Sl. Cloudy (Clear); Urine Urobilinogen Normal (Normal)
[2024-01-23 18:16] LABS: Squamous Epithelial Cells - UA 0-5 SEEN /hpf (5-10)
[2024-01-23 18:18] LABS: Hyaline Cast 0-5 SEEN /lpf (0-5); Red Blood Cells-Urine 5-10 SEEN /hpf (0-5); White Blood Cells 5-10 SEEN /hpf (0-5)
[2024-01-23 18:19] LABS: Bacteria 1+ /hpf (None Seen); Mucous, Urine 1+ /hpf (<or=2+)
[2024-01-23 18:26] LABS: ALB/GLOB Ratio 0.9 RATIO (0.9-2.4); AST(SGOT) 20 U/L (15-37); Alanine Aminotransfer ALT/SGPT 16 U/L (13-56); Albumin, Serum 3.3 g/dL (3.2-5.0); Alkaline Phosphatase 61 U/L (45-117); Anion Gap 5 (5-15); BUN 62 mg/dL (7-18); BUN/Creat Ratio 26.7 RATIO (10-20); CPK Total, Creatine Kinase 205 U/L (26-192); Calcium,Total 9.4 mg/dL (8.5-10.1); Chloride 104 mmol/L (98-107); Creatinine, Serum 2.32 mg/dL (0.55-1.02); EST Glomerular Filtration Rate 22 mL/min (>60); Est Glom Filt Rate - Afr Amer 27 mL/min (>60); Estimated Creatinine Clearance 27.71 ml/min; Globulin 3.8 g/dL (2.2-4.2); Glucose 98 mg/dL (74-106); Potassium 3.5 mmol/L (3.5-5.1); Protein, Total 7.1 g/dL (6.4-8.2); Sodium Level 138 mmol/L (136-145)
[2024-01-23 18:55] LABS: Absolute Lymphocyte Count 1.33 X10^3/uL (0.83-4.51); Basophil# 0.07 X10^3/uL; Basophil% 0.6 % (0-1); Eosinophil# 0.35 X10^3/uL; Eosinophils% 3.2 % (0-5); Hematocrit 36.8 % (37-47); Hemoglobin 11.3 g/dL (12.0-15.0); Lymphocyte # 1.33 X10^3/ul (0.83-4.51); Lymphocyte % 12.3 % (19-41); Mean Corp Hgb Conc 30.7 g/dL (32-36); Mean Corpuscular Volume 91.1 fL (81-99); Mean Platelet Vol. 10.1 fl (6.2-12.0); Monocyte% 9.2 % (0-10); NRBC Flagged by Analyzer 0 % (0-5); Neutrophil # 8.04 X10^3/uL (2.7-7.7); Neutrophil % 74.3 % (47-70); Platelet Count 209 K/mm3 (150-450); RBC Distribution Width CV 14.8 % (11.6-14.6); RBC Distribution Width SD 49.4 fl (35.1-43.9); Red Blood Count 4.04 M/mm3 (4.2-5.4); White Blood Count 10.8 K/mm3 (4.4-11.0)
[2024-01-23 19:00] LABS: Blood Gas Specimen Type VEN; O2 Delivery Device Room Air; SITE Not entered; VBG BASE EXCESS 6 mmol/L (-1.0-3.5); VBG Bicarbonate 30 mmol/L (22-26); VBG PO2 42 mmHg (25-40); VBG SO2 81 % (50-70); VBG TCO2 31 mmol/L (23-33); VBG pCO2 40.1 mmHg (41-51); VBG pH 7.48 (7.32-7.42)
[2024-01-23] MEDS: 0.9% Normal Saline (1000mL) 1,000 ML 150 ML IV (19:18)
--- NOTE | 2024-01-23 19:43 | ED.RN ---
called [facility]. called to obtain med list for patient. [phone]. left message.
--- NOTE | 2024-01-23 20:30 | HP.PCM.HOS_ITS ---
HPI - General General Date of Admission: 01/23/24 Date of Service: 01/23/24 Chief Complaint: Falls, confusion. HPI Narrative The patient is a 63 y/o F w/ PMHx: Chronic lumbar back pain, Morbid obesity, Chronic anemia/Fe deficiency anemia, Chronic thrombocytopenia, GERD, CKD unclear if stage III versus stage IV as GFR trending has vascillated, COPD, Diabetes mellitus type II, PAF, HTN, HLD, Gout, Seizure disorder, Anxiety and Depression/Schizoaffective disorder, Lichen sclerosis who presents to the [facility] ED on 01/23/24 with history of confusion reported per friend reportedly alert to place but disoriented to day/month/year with reportedly having fallen 1 to 2 days prior but no head trauma at that time initially very resistant to ED evaluation eventually taken by EMS. In the ED patient is significantly lethargic but does wake up and will answer some questions but not notably alert. Workup in the ED included T97, heart rate 77, BP 169/118, respiratory rate 19, 96% room air, CBC with WBC 10.8, hemoglobin 11.3, MCV 91.1, platelet 209 with left shift, VBG with pH 7.48, pO2 42, bicarb 30, O2 saturation 81% on room air, CMP with BUN/creatinine 62/2.31, GFR 22, total creatinine kinase 205, hepatic profile unremarkable, urine noted to be cloudy, protein 30, glucose 100, occult blood 25, negative nitrite, leukocyte esterase 500 with urine RBCs and WBCs 5-10 with 1+ urine bacteria with urine culture pending per ED, CT of the brain with no acute intracranial findings. In the ED patient administered 1 L normal saline and maintenance fluid form. [facility] Medical History Low platelet count Anemia History of ESBL E. coli infection History of tobacco use IBS (irritable bowel syndrome) Acid reflux Port-A-Cath in place Encounter for infusaport central venous catheter removal prison current use of anticoagulant Chest pain History of cardiac arrest Chronic kidney disease Diverticulitis large intestine w/o perforation or abscess w/bleeding Abdominal ascites Pulmonary hypertension, secondary Acute hypotension History of COPD History of diabetes mellitus, type II Bradycardia Chest pain of uncertain etiology History of hypertension History of atrial fibrillation History of CHF (congestive heart failure) Peripheral edema Congestive heart failure Morbid obesity with BMI of 40.0-44.9, adult Pericardial effusion with cardiac tamponade Wears glasses Wears dentures Substance abuse Alcohol use Rash Gout High cholesterol PVD (peripheral vascular disease) Easy bruising Seizures Dietary restriction Gastric reflux Injury of back Vapes nicotine containing substance Fall History of pain when walking History of edema Insomnia Major depression On home oxygen therapy Emphysema, unspecified Neuropathy Cardiology follow-up encounter History of ulceration DKA (diabetic ketoacidosis) Cardiac arrest Lichen sclerosus Macular degeneration Essential hypertension Decreased left ventricular function Paroxysmal atrial fibrillation Diverticulosis Migraine Iron deficiency anemia COPD (chronic obstructive pulmonary disease) CHF (congestive heart failure) Neuropathy Kidney failure Hypothyroid Schizoaffective disorder, bipolar type Emphysema lung Diabetes Heart attack Home Medications ?Medication ?Instructions ?Recorded ?Last Taken ?Type apixaban 5 mg tablet (Eliquis) 5 mg PO BID a. fib. 12/24/22 07/27/23 History atorvastatin 20 mg tablet 20 mg PO DAILY cholesterol 12/24/22 07/27/23 History gabapentin 300 mg capsule 300 mg PO 4X/DAY 12/25/22 07/27/23 History albuterol sulfate 90 mcg/actuation 1 inh inhalation PRN PRN shortness 12/31/22 Unknown History aerosol inhaler of breath or wheezing trazodone 100 mg tablet 100 mg PO QHS 01/01/23 07/26/23 History aripiprazole 20 mg tablet 20 mg PO QHS mental health 03/09/23 07/26/23 History budesonide-formoterol HFA 80 2 inh inhalation BID breathing 04/27/23 07/27/23 History mcg-4.5 mcg/actuation aerosol inhaler (Symbicort) fluticasone propionate 50 1 spray intranasal DAILY PRN 04/27/23 Unknown History mcg/actuation nasal allergy symptoms spray,suspension divalproex 500 mg tablet,extended 500 mg PO DAILY 07/25/23 07/27/23 History release 24 hr famotidine 20 mg tablet 20 mg PO DAILY 07/25/23 07/27/23 History hydrocodone-acetaminophen 5-325mg 1 tab PO Q8H PRN pain 07/25/23 Unknown History 5mg-325mg levothyroxine 100 mcg tablet 100 mcg PO DAILY 07/25/23 07/27/23 History oxybutynin chloride 5 mg 5 mg PO DAILY 07/25/23 07/27/23 History tablet,extended release 24 hr tiotropium bromide 2.5 2 inh inhalation QDAY #1 ea 08/27/23 Unknown Rx mcg/actuation mist for inhalation (Spiriva Respimat) insulin glargine 100 unit/mL (3 22 unit subcut DAILY 10/13/23 Unknown History mL) subcutaneous pen (Lantus Solostar U-100 Insulin) benazepril 5 mg tablet 5 mg PO QDAY 12/24/23 Unknown History clotrimazole-betamethasone 1 1 applic topical BID 12/24/23 Unknown History %-0.05 % topical cream diclofenac sodium 1 % topical gel 2 g topical ONCE 12/24/23 Unknown History empagliflozin 25 mg tablet 25 mg PO QAM 12/24/23 Unknown History (Jardiance) epinephrine 0.3 mg/0.3 mL 0.3 mg IM ONCE 12/24/23 Unknown History injection, auto-injector (EpiPen 2-Wayne) meloxicam 7.5 mg tablet 7.5 mg PO QDAY 12/24/23 Unknown History naloxegol 25 mg tablet (Movantik) 25 mg PO QAM 12/24/23 Unknown History pantoprazole 40 mg tablet,delayed 40 mg PO QDAY 12/24/23 Unknown History release furosemide 80 mg tablet 40 mg PO QDAY 01/06/24 Unknown History nystatin 100,000 unit/gram topical 1 applic topical BID 01/06/24 Unknown History powder sucralfate 1 gram tablet 1 g PO QAC 01/06/24 Unknown History tirzepatide 2.5 mg/0.5 mL 5 mg subcut QWEEK 01/06/24 Unknown History subcutaneous pen injector (Joseph) valbenazine 80 mg capsule 80 mg PO HS 01/06/24 Unknown History (Ingrezza) Allergy/AdvReac Type Severity Reaction Status Date / Time aspirin Allergy Mild Hives Verified 01/21/24 14:11 erythromycin base Allergy Mild Hives Verified 01/21/24 14:11 Penicillins Allergy Mild Hives Verified 01/21/24 14:11 polyethylene glycol 3350 Allergy Mild Nausea/Vom/ Verified 01/21/24 14:11 (From Miralax) Diarrhea tramadol Allergy Mild Hives Verified 01/21/24 14:11 tomato Allergy Food Verified 01/21/24 14:11 Allergy Family History Mother Heart disease Hypertension Cancer Father Brain aneurysm age 40 CVA (cerebral vascular accident) Cancer Brother Colon cancer Surgical History History of bilateral knee replacement Hx of vein stripping Hx of toe surgery History of lithotripsy History of delivery History of bilateral cataract extraction History of cholecystectomy H/O: hysterectomy Social History Smoking Status: Current every day smoker tobacco type: cigarettes and e- cigarettes Tobacco: How many years used: 18 Electronic Cigarette Use: with nicotine second hand exposure: No alcohol intake: never substance use type: does not use caffeine: Yes ROS Review of Systems ROS Unobtainable: due to encephalopathy Vital Signs Vital Signs Vital Signs: 01/23/24 17:02 01/23/24 18:06 01/23/24 19:00 Temperature 97.0 F L 98 F 97.5 F L Temperature Source Temporal Temporal Temporal Pulse Rate 77 54 L 54 L Respiratory Rate 19 H 22 H 14 Blood Pressure 169/118 H 120/57 L 114/51 L Blood Pressure Mean 135 78 72 Pulse Ox 96 99 93 Oxygen Delivery Method Room Air Room Air Room Air 01/23/24 19:15 01/23/24 20:10 Temperature 96.7 F L Temperature Source Axillary Pulse Rate 53 L 49 L Respiratory Rate 16 12 Blood Pressure 105/56 L 125/57 H Blood Pressure Mean 72 79 Pulse Ox 96 97 Oxygen Delivery Method Room Air Room Air Weight Weight: 221 lb 9.033 oz Body Mass Index (BMI) 39.2 Physical Exam Narrative Physical Examination: General: Patient extremely lethargic, will awaken to some stimuli and very transiently alert but quickly falling back asleep, will answer some questions but clearly confused and lethargic, will follow some commands before falls back asleep, no distress noted. Skin: Normal color, normal turgor, no icterus, no cyanosis except occasional stage ecchymoses, bilateral lower extremity venous stasis skin changes HEENT: AT/NC, EOM appear intact but difficult as falls back asleep quickly, scleral injection noted bilaterally, PERRLA, significantly dry MM, no carotid bruits or JVD noted. Lungs: Diminished, greater bases, appropriate effort, no rales, ronchi or wheezing. Heart: Currently regular rate and rhythm; no gallop, rub audible. Of note on monitor when patient falling back asleep more bradycardic. Abdomen: Soft, obese, no grimacing with palpation, ND, distant normal BS, no appreciated HSM. Extremities: No cyanosis, no clubbing, pedal to proximal schwartz 2-3+ pitting edema, suspect chronic component. Neurological: Patient extremely lethargic, will awaken to some stimuli and very transiently alert but quickly falling back asleep, will answer some questions but clearly confused and lethargic, will follow some commands before falls back asleep, no distress noted, cognitive function not baseline intact; pupils equally reactive to light and accommodation, cranial nerves difficult to assess given lethargy but appear grossly normal and interactive, moving all extremities spontaneously, strength severely globally decreased. Psychiatric: Affect appears flat, lethargic, no acute evidence of depressive or anxiety feelings. Results Lab / Micro Data 01/23/24 17:45 01/23/24 17:52 Labs: Laboratory Results - last 24 hr 01/23/24 17:45: WBC 10.8, RBC 4.04 L, Hgb 11.3 L, Hct 36.8 L, MCV 91.1, MCH 28.0, MCHC 30.7 L, RDW Std Deviation 49.4 H, RDW Coeff of Penny 14.8 H, Plt Count 209, MPV 10.1, Immature Gran % (Auto) 0.400, Neut % (Auto) 74.3 H, Lymph % (Auto) 12.3 L, [place] % (Auto) 9.2, Eos % (Auto) 3.2, Baso % (Auto) 0.6, Absolute Neuts (auto) 8.0 H, Absolute Lymphs (auto) 1.33, Nucleated RBC % 0 01/23/24 17:52: Sodium 138, Potassium 3.5, Chloride 104, Carbon Dioxide 29.0, Anion Gap 5, BUN 62 H, Creatinine 2.32 H, Estim Creat Clear Calc 27.71, Est GFR (MDRD) Af Amer 27 L, Est GFR (MDRD) Non-Af 22 L, BUN/Creatinine Ratio 26.7 H, Glucose 98, Calcium 9.4, Total Bilirubin 0.30, AST 20, ALT 16, Alkaline Phosphatase 61, Total Creatine Kinase 205 H, Total Protein 7.1, Albumin 3.3, Globulin 3.8, Albumin/Globulin Ratio 0.9 01/23/24 17:53: Urine Color Yellow, Urine Clarity Sl. Cloudy, Urine pH 5.0, Ur Specific [place] 1.015, Urine Protein 30 H, Urine Glucose (UA) 100 H, Urine Ketones Negative, Urine Occult Blood 25 H, Urine Nitrite Negative, Urine Bilirubin Negative, Urine Urobilinogen Normal, Ur Leukocyte Esterase 500 H, Urine RBC 5-10 SEEN, Urine WBC 5-10 SEEN, Ur Squamous Epith Cells 0-5 SEEN, Urine Bacteria 1+, Hyaline Casts 0-5 SEEN, Urine Mucus 1+ 01/23/24 18:46: Ammonia 22.0 ABG Data ABG results: ABG 01/23/24 18:56 Specimen Type DEIDRA Sample Site Not entered VBG pH 7.48 H VBG pO2 42 H VBG HCO3 30 H VBG Total CO2 31 VBG O2 Sat (Calc) 81 H VBG Base Excess 6 H POC Mix VBG pCO2 Pt Tmp 40.1 L O2 Delivery Device Room Air Imaging Radiology Impression Brain CT 01/23/24 17:38 IMPRESSION: No acute intracranial findings. Electronically Signed: Jj Florentino MD at 19:02 EST Reading Location ID and State: [facility] / [place] Tel , Service support , Assessment & Plan Assessment/Plan (1) Altered mental status: PLAN: Plan The patient is a 63 y/o F w/ PMHx: Chronic lumbar back pain, Morbid obesity, Chronic anemia/Fe deficiency anemia, Chronic thrombocytopenia, GERD, CKD unclear if stage III versus stage IV as GFR trending has vascillated, COPD, Diabetes mellitus type II, PAF, HTN, HLD, Gout, Seizure disorder, Anxiety and Depression/Schizoaffective disorder, Lichen sclerosis who presents to the [facility] ED on 01/23/24 with history of confusion reported per friend reportedly alert to place but disoriented to day/month/year with reportedly having fallen 1 to 2 days prior but no head trauma at that time initially very resistant to ED evaluation eventually taken by EMS. #1. Acute Encephalopathy, frequent falls, worsening suspected secondary to Acute Complicated UTI (prior Hx ESBL UTI) coupled with dehydration as noted: Will admit to PCU, maintain on fall/aspiration/seizure precautions, based on prior UCx cultures will maintain on IV meropenem pending sensitivities/speciation, continue judicious hydration as noted with hold on diuretics, PT/OT/case management consulted for discharge planning. While more encephalopathic may need to hold oral regimen and transition to IV versions, but given no further marked medications due tonight will continue in case potential improvement in the AM, but plan for hold if not. Will dose with IV depacon x 1 now as suspect likely missed at least today dosing. Level pending as noted. Will request EEG and neurology input as may not necessarily be secondary to only the UTI especially given unclear timeline of onset. Also may need to consider further brain imaging pending repeat assessment and results. #2. Acutely elevated creatinine/acute renal insufficiency on Chronic Kidney Disease Stage III versus stage IV, GFR has vacillated but suspect likely stage III and these were acute presentations but uncertain: Admission BUN/Cr 62/2.32, GFR 22, baseline renal function primarily 1.5-1.8, most recent 01/12/2024 creatinine 1.83 at that time, will continue hydration judiciously as noted, temporally hold nephrotoxic medication, repeat BMP in AM. #3. Mild acute rhabdomyolysis: Noted history of recent fall although patient confused this unclear timeline, admission total creatinine kinase 205, mildly elevated creatinine also was noted, will continue to hydrate and repeat total creatinine kinase in AM, monitor I's and O's. #4. Chronic lumbar back pain: Complicates presentation, for most recent notes in the system possible upcoming laminectomy given ongoing pain, PT/OT/case management consulted for discharge planning. Will hold off on aggressive regimen currently given encephalopathy with reassessment once more alert. #5. HFpEF, Chronic: 06/25/2023 echocardiogram with EF 65%, mild MVI, mild to moderate TBI, PASP 46 mmHg, will temporarily hold Lasix, KAISER inhibitor, continue statin therapy, Eliquis, per current list does not appear to be on beta-claribel therapy possibly secondary to underlying pulmonary disease concurrently. Has chronic BL LE edema, will place snug kaiser wraps. #6. Chronic COPD with allergic rhinitis: Will temporally hold home inhaler in the interim transition to ATC budesonide therapy, PRN albuterol, HOB, IS parameters. #7. Chronic normocytic anemia/iron deficiency anemia: Admission hemoglobin 11.3, MCV 91.1, baseline hemoglobin has been primarily 9-11 although most recent prior to this in 01/12/24 hemoglobin 12.4, following with hematology with most recent visit noted 01/06/[address] Parson, continue to trend. #8. Hypertension: Temporally holding patient home KAISER inhibitor and Lasix given renal function, judiciously hydrating, add back once appropriate, PRN hydralazine. #9. Hyperlipidemia: We will continue patient on statin therapy. #10. Chronic bilateral lower extremity edema: Will place snug kaiser wraps, encourage continued compression stockings outpatient, holding Lasix temporarily as noted. #11. Diabetes mellitus type II with chronic neuropathy: Hold oral home regimen, continue home insulin regimen, once oral intake deemed safe allow ADA diet, accu checks w/ ISS, continue home gabapentin regimen. #12. Anxiety and depression/schizoaffective disorder: We will continue patient valbenazine, trazodone and aripiprazole home regimen, encourage continued outpatient follow-up for counseling and medication review as previously arranged. If MRI is unremarkable unfortunately etiology may be psychiatric in nature. #13. Hypothyroidism: Will maintain on home levothyroxine regimen, TSH/FT4 requested. #14. Seizure disorder: We will continue patient home Depakote regimen, level requested. Will give 500 mg IV depacon x 1 upon admission given notable encephalopathy and assess again in AM for improvement and oral transition. Will also request EEG and neurology input as may not necessarily be secondary to only the UTI especially given unclear timeline of onset. #15. Lichen sclerosus: Per current list does not appear to be on any as needed or chronic steroid cream, encourage continued outpatient follow-up with [employer] versus dermatology as previously arranged. #16. Tobacco Abuse: Encouraged cessation, inpatient consultation per RT, NR if desired. #17. Morbid Obesity: Weight loss and lifestyle changes encouraged. #18. PAF: We will continue patient home Eliquis regimen. #19. GERD: We will continue patient home PPI and sucralfate regimen. #20. DVT prophylaxis: Continue patient home Eliquis regimen. #21. CODE status: Unverified full code. Charges/Coding Visit Charges Inpatient E&M: 77357 Init Hosp L3
--- NOTE | 2024-01-23 20:56 | ED.RN ---
Elvira, sister called in for update, informed of admission.
[2024-01-23] MEDS: Meropenem 2 GM in 0.9% Normal Saline (100mL Bag) 100 ML IV (21:02)
[2024-01-23 21:39] LABS: Magnesium 2.4 mg/dL (1.6-2.6); Phosphorus 3.6 mg/dL (2.5-4.9)
[2024-01-23] MEDS: 0.9% Normal Saline (1000mL) 1,000 ML 100 ML IV (21:59)
[2024-01-23 22:25] LABS: Valproic Acid (Depakene) Level 14 ug/mL (50-100)
[2024-01-23] MEDS: Valproate Sodium 500 MG in Dextrose 5%-Water (50mL Bag) 50 ML 50 MG IV (22:32)
[2024-01-23] MEDS: Nystatin Powder 15gm Bottle 1 APPLIC TOPICAL (22:33)
[2024-01-23] MEDS: Menthol/Lanolin/Calamine/Znox 113 GM Tube 1 APPLIC TOPICAL (22:34)
[2024-01-23 22:52] LABS: Bedside Glucose 123 mg/dL (74-106)
[2024-01-24] MEDS: APIXABAN 5 MG TABLET PO ×3 (00:36→22:20)
[2024-01-24] MEDS: ARIPiprazole 10 MG Tablet 20 MG PO ×2 (00:36→22:21)
[2024-01-24] MEDS: CLARIFY ORDER 1 EACH NOTE (00:36)
[2024-01-24 03:05] VITALS: BMI 35.2
[2024-01-24 05:15] VITALS: BP 121/56; PULSE 72; RESP 20; TEMP 36.8; O2SAT 94
[2024-01-24 06:14] LABS: Absolute Lymphocyte Count 1.47 X10^3/uL (0.83-4.51); Absolute Neutrophil Count 5.8 X10^3/uL (2.0-7.7); Basophil# 0.06 X10^3/uL; Basophil% 0.7 % (0-1); Eosinophil# 0.33 X10^3/uL; Eosinophils% 3.9 % (0-5); Hematocrit 35.4 % (37-47); Hemoglobin 11.1 g/dL (12.0-15.0); Lymphocyte # 1.47 X10^3/ul (0.83-4.51); Lymphocyte % 17.5 % (19-41); Mean Corp Hgb Conc 31.4 g/dL (32-36); Mean Corpuscular Hgb 28.2 pg (27.0-32.0); Mean Corpuscular Volume 89.8 fL (81-99); Monocyte# 0.67 X10^3/uL; NRBC Flagged by Analyzer 0 % (0-5); Neutrophil # 5.82 X10^3/uL (2.7-7.7); Neutrophil % 69.4 % (47-70); Platelet Count 168 K/mm3 (150-450); RBC Distribution Width CV 14.9 % (11.6-14.6); RBC Distribution Width SD 48.4 fl (35.1-43.9); Red Blood Count 3.94 M/mm3 (4.2-5.4); White Blood Count 8.4 K/mm3 (4.4-11.0)
[2024-01-24] MEDS: Levothyroxine 100 MCG Tablet PO (06:22)
[2024-01-24] MEDS: Nystatin Powder 15gm Bottle 1 APPLIC TOPICAL ×3 (06:22→22:21)
[2024-01-24] MEDS: Sucralfate 1 GM Tablet PO ×3 (06:22→16:14)
[2024-01-24 06:37] LABS: Bedside Glucose 131 mg/dL (74-106)
[2024-01-24 06:50] LABS: ALB/GLOB Ratio 0.8 RATIO (0.9-2.4); AST(SGOT) 19 U/L (15-37); Alanine Aminotransfer ALT/SGPT 15 U/L (13-56); Albumin, Serum 2.8 g/dL (3.2-5.0); Alkaline Phosphatase 55 U/L (45-117); Anion Gap 2 (5-15); BUN 50 mg/dL (7-18); BUN/Creat Ratio 28.4 RATIO (10-20); CPK Total, Creatine Kinase 166 U/L (26-192); Calcium,Total 9.1 mg/dL (8.5-10.1); Chloride 109 mmol/L (98-107); Creatinine, Serum 1.76 mg/dL (0.55-1.02); EST Glomerular Filtration Rate 31 mL/min (>60); Est Glom Filt Rate - Afr Amer 37 mL/min (>60); Estimated Creatinine Clearance 38.33 ml/min; Globulin 3.5 g/dL (2.2-4.2); Glucose 114 mg/dL (74-106); Potassium 3.5 mmol/L (3.5-5.1); Protein, Total 6.3 g/dL (6.4-8.2); Sodium Level 141 mmol/L (136-145); T4 Free Direct 1.33 ng/dL (0.76-1.46)
--- NOTE | 2024-01-24 06:52 | CPS ---
Attempted to do EEG. Pt refused. Pt stated there was nothing wrong with her brain. Pt was agitated and uncooperative. Attempt made to calm pt and encourage her to allow EEG be done. Pt's nurse, Karen walked in room also and tried to help with pt. Pt continue to refuse EEG. Karen stated she would Txt
--- NOTE | 2024-01-24 08:38 | PCM.PN.HOSP ---
Reason for Visit Reason for Visit: Diagnoses Altered mental status, unspecified (01/23/24) Subjective Subjective Feels well. Wants to go home. Objective Data Objective Data Vital Signs: Vital Signs Temp Pulse Resp BP Pulse Ox O2 Del Method 36.8 C 72 20 H 121/56 H 94 Room Air 01/24/24 05:15 01/24/24 05:15 01/24/24 05:15 01/24/24 05:15 01/24/24 05:15 01/24/24 08:05 Oxygen Delivery Method Room Air Weight: 99 kg Body Mass Index (BMI) 35.2 Intake & Output: Intake and Output for Last 24 Hours 01/22/24 01/23/24 01/24/24 23:59 23:59 23:59 Intake Total 1140.0 / 1140.0 1535 / 1535 Output Total 750 / 750 Balance 1140.0 / 1140.0 785 / 785 Lab / Micro Data 01/24/24 05:12 01/24/24 05:12 Labs: Laboratory Results - last 24 hr 01/23/24 17:45: WBC 10.8, RBC 4.04 L, Hgb 11.3 L, Hct 36.8 L, MCV 91.1, MCH 28.0, MCHC 30.7 L, RDW Std Deviation 49.4 H, RDW Coeff of Penny 14.8 H, Plt Count 209, MPV 10.1, Immature Gran % (Auto) 0.400, Neut % (Auto) 74.3 H, Lymph % (Auto) 12.3 L, [place] % (Auto) 9.2, Eos % (Auto) 3.2, Baso % (Auto) 0.6, Absolute Neuts (auto) 8.0 H, Absolute Lymphs (auto) 1.33, Nucleated RBC % 0 01/23/24 17:52: Sodium 138, Potassium 3.5, Chloride 104, Carbon Dioxide 29.0, Anion Gap 5, BUN 62 H, Creatinine 2.32 H, Estim Creat Clear Calc 27.71, Est GFR (MDRD) Af Amer 27 L, Est GFR (MDRD) Non-Af 22 L, BUN/Creatinine Ratio 26.7 H, Glucose 98, Calcium 9.4, Phosphorus 3.6, Magnesium 2.4, Total Bilirubin 0.30, AST 20, ALT 16, Alkaline Phosphatase 61, Total Creatine Kinase 205 H, Total Protein 7.1, Albumin 3.3, Globulin 3.8, Albumin/Globulin Ratio 0.9 01/23/24 17:53: Urine Color Yellow, Urine Clarity Sl. Cloudy, Urine pH 5.0, Ur Specific [place] 1.015, Urine Protein 30 H, Urine Glucose (UA) 100 H, Urine Ketones Negative, Urine Occult Blood 25 H, Urine Nitrite Negative, Urine Bilirubin Negative, Urine Urobilinogen Normal, Ur Leukocyte Esterase 500 H, Urine RBC 5-10 SEEN, Urine WBC 5-10 SEEN, Ur Squamous Epith Cells 0-5 SEEN, Urine Bacteria 1+, Hyaline Casts 0-5 SEEN, Urine Mucus 1+ 01/23/24 18:46: Ammonia 22.0 01/23/24 21:58: Valproic Acid 14 L 01/23/24 22:29: POC Glucose 123 H 01/24/24 05:12: WBC 8.4, RBC 3.94 L, Hgb 11.1 L, Hct 35.4 L, MCV 89.8, MCH 28.2, MCHC 31.4 L, RDW Std Deviation 48.4 H, RDW Coeff of Penny 14.9 H, Plt Count 168, MPV 10.0, Immature Gran % (Auto) 0.500, Neut % (Auto) 69.4, Lymph % (Auto) 17.5 L, [place] % (Auto) 8.0, Eos % (Auto) 3.9, Baso % (Auto) 0.7, Absolute Neuts (auto) 5.8, Absolute Lymphs (auto) 1.47, Nucleated RBC % 0, Sodium 141, Potassium 3.5, Chloride 109 H, Carbon Dioxide 30.0, Anion Gap 2 L, BUN 50 H, Creatinine 1.76 H, Estim Creat Clear Calc 38.33, Est GFR (MDRD) Af Amer 37 L, Est GFR (MDRD) Non-Af 31 L, BUN/Creatinine Ratio 28.4 H, Glucose 114 H, Calcium 9.1, Total Bilirubin 0.40, AST 19, ALT 15, Alkaline Phosphatase 55, Total Creatine Kinase 166, Total Protein 6.3 L, Albumin 2.8 L, Globulin 3.5, Albumin/Globulin Ratio 0.8 L, TSH 1.480, Free T4 1.33 01/24/24 06:19: POC Glucose 131 H ABG Data ABG results: ABG 01/23/24 18:56 Specimen Type DEIDRA Sample Site Not entered VBG pH 7.48 H VBG pO2 42 H VBG HCO3 30 H VBG Total CO2 31 VBG O2 Sat (Calc) 81 H VBG Base Excess 6 H POC Mix VBG pCO2 Pt Tmp 40.1 L O2 Delivery Device Room Air Radiography Diagnostic Testing: Radiology Impression Brain CT 01/23/24 17:38 IMPRESSION: No acute intracranial findings. Electronically Signed: Jj Florentino MD at 19:02 EST , Rhythm Strip Rhythm Strip: Sinus Rhythm Rate: 50 Ectopy: None Physical Exam Const alert and no apparent distress Constitutional Narrative: up in chair. nontoxic. afebrile. HEENT head/scalp atraumatic and moist oral mucous membranes Resp normal respiratory effort, no retractions, no use of accessory muscles and clear to auscultation bilaterally Cardio regular rate, regular rhythm, S1 normal heart sound and S2 normal heart sound GI normal to inspection, nondistended, normoactive bowel sounds, soft to palpation, non-tender and non-distended Extremity normal to inspection and full ROM Assessment & Plan Assessment/Plan (1) Altered mental status: PLAN: Plan Metabolic encephalopathy Unclear etiology. Urinalysis here is rather benign looking. Urine culture S. aureus. head CT negative Avoid potentiating medications Valproic acid level low at 14. EEG performed. Seen by neurology. No additional inpatient work up necessary. Abnormal UCx. UA benign, but UCx growing out S. aureus. DC meropenem. Check BCx. Iron-deficiency anemia Called by Dr. Parson, who called me a recommended IV iron. Patient also with heme-positive stools. Since Hg is stable, defer GI evaluation to outpt. Follow up with Dr. Parson. CHELSEY on CKD Improved. Chronic conditions: Chronic lumbar back pain: Complicates presentation, for most recent notes in the system possible upcoming laminectomy given ongoing pain, PT/OT/case management consulted for discharge planning. Will hold off on aggressive regimen currently given encephalopathy with reassessment once more alert. HFpEF, Chronic: 06/25/2023 echocardiogram with EF 65%, mild MVI, mild to moderate TBI, PASP 46 mmHg, will temporarily hold Lasix, KAISER inhibitor, continue statin therapy, Eliquis, per current list does not appear to be on beta-claribel therapy possibly secondary to underlying pulmonary disease concurrently. Has chronic BL LE edema, will place snug kaiser wraps. Chronic COPD with allergic rhinitis: Will temporally hold home inhaler in the interim transition to ATC budesonide therapy, PRN albuterol, HOB, IS parameters. Chronic normocytic anemia/iron deficiency anemia: Admission hemoglobin 11.3, MCV 91.1, baseline hemoglobin has been primarily 9-11 although most recent prior to this in 01/12/24 hemoglobin 12.4, following with hematology with most recent visit noted 01/06/[address] Parson, continue to trend. Hypertension: Temporally holding patient home KAISER inhibitor and Lasix given renal function, judiciously hydrating, add back once appropriate, PRN hydralazine. Hyperlipidemia: We will continue patient on statin therapy. Chronic bilateral lower extremity edema: Will place snug kaiser wraps, encourage continued compression stockings outpatient, holding Lasix temporarily as noted. Diabetes mellitus type II with chronic neuropathy: Hold oral home regimen, continue home insulin regimen, once oral intake deemed safe allow ADA diet, accu checks w/ ISS, hold gabapentin Anxiety and depression/schizoaffective disorder: We will continue patient valbenazine, trazodone and aripiprazole home regimen, encourage continued outpatient follow-up for counseling and medication review as previously arranged. Hypothyroidism: Will maintain on home levothyroxine regimen, TSH/FT4 WNL Seizure disorder: We will continue patient home Depakote regimen, level requested. Will give 500 mg IV depacon x 1 upon admission given notable encephalopathy and assess again in AM for improvement and oral transition. Will also request EEG and neurology input Lichen sclerosus: Per current list does not appear to be on any as needed or chronic steroid cream, encourage continued outpatient follow-up with [facility] versus dermatology as previously arranged. Tobacco Abuse: Encouraged cessation, inpatient consultation per RT, NR if desired. Obesity class II: complicates care and recovery. PAF: We will continue patient home Eliquis regimen. GERD: We will continue patient home PPI and sucralfate regimen. VTE prophylaxis: Not indicated as patient is already on apixaban Charges/Coding Visit Charges Inpatient E&M: 41666 Subs Hosp L2
[2024-01-24 09:30] VITALS: BP 132/63; PULSE 72; RESP 18; TEMP 36.7; O2SAT 94
[2024-01-24] MEDS: Pantoprazole Sodium 40 MG Tablet PO (09:32)
[2024-01-24] MEDS: Insulin Glargine-YFGN 100 UNIT/ML Pen 22 UNIT SC (09:32)
[2024-01-24] MEDS: Divalproex (ER) 500 MG Tablet PO (09:32)
[2024-01-24] MEDS: Menthol/Lanolin/Calamine/Znox 113 GM Tube 1 APPLIC TOPICAL ×4 (09:32→22:21)
[2024-01-24] MEDS: Atorvastatin Calcium 20 MG Tablet PO (09:33)
[2024-01-24] MEDS: Famotidine 20 MG Tablet PO (09:33)
[2024-01-24] MEDS: Meropenem 1 GM in 0.9% Normal Saline (100mL MB+) 100 ML IV (10:15)
--- NOTE | 2024-01-24 12:08 | CON.PCM.NE_ITS ---
Assessment and Plan: Neuro Assessment/Plan JADE SWANSON is a 63 F with a past medical history of Chronic lumbar back pain, Morbid obesity, Chronic anemia/Fe deficiency anemia, Chronic thrombocytopenia, GERD, CKD unclear if stage III versus stage IV COPD, Diabetes mellitus type II, PAF, HTN, HLD, Gout, Seizure disorder, Anxiety and Depression/Schizoaffective disorder, Lichen sclerosis who presents to the [facility] ED on 01/23/24 with history of confusion reported per friend reportedly alert to place but disoriented to day/month/year with episode of falling as per report however patient denies falls and told me that she was got up from chair and felt dizzy however didnot passed out .Regardless , CT reviewed that is negative for acute pathology. Feels back to baseline and no confusion noted on exam. She told me that she was feeling like this because she didn't eat anything at all. At this point, she feels back to normal and no further inpatient work up is warranted .Recommend MRI brain to be performed as an outpatient as patient really wants to leave .Follow up with neurology clinic in 6-8 weeks after MRI brain has been performed. Diagnosis: altered mental status I personally attended this patient and spent a total time of 50 minutes evaluating this patient including clinical assessment, review of chart, medical history imaging, and determining appropriate treatment and workup. Dawn Salinas MD [facility] Teleneurology Department HPI Consult Data Date of Consult: 01/24/24 HPI Narrative HPI Narrative: The patient is a 63 y/o F w/ PMHx: Chronic lumbar back pain, Morbid obesity, Chronic anemia/Fe deficiency anemia, Chronic thrombocytopenia, GERD, CKD unclear if stage III versus stage IV as GFR trending has vascillated, COPD, Diabetes mellitus type II, PAF, HTN, HLD, Gout, Seizure disorder, Anxiety and Depression/Schizoaffective disorder, Lichen sclerosis who presents to the [facility] ED on 01/23/24 with history of confusion reported per friend reportedly alert to place but disoriented to day/month/year with reportedly having fallen 1 to 2 days prior but no head trauma at that time initially very resistant to ED evaluation eventually taken by EMS. In the ED patient is significantly lethargic but does wake up and will answer some questions but not notably alert. Workup in the ED included T97, heart rate 77, BP 169/118, respiratory rate 19, 96% room air, CBC with WBC 10.8, hemoglobin 11.3, MCV 91.1, platelet 209 with left shift, VBG with pH 7.48, pO2 42, bicarb 30, O2 saturation 81% on room air, CMP with BUN/creatinine 62/2.31, GFR 22, total creatinine kinase 205, hepatic profile unremarkable, urine noted to be cloudy, protein 30, glucose 100, occult blood 25, negative nitrite, leukocyte esterase 500 with urine RBCs and WBCs 5-10 with 1+ urine bacteria with urine culture pending per ED, CT of the brain with no acute intracranial findings. In the ED patient administered 1 L normal saline and maintenance fluid form. On my evaluation, patient felt normal and back to baseline and eagerly wanted to be discharged . [facility] Medical History Low platelet count Anemia History of ESBL E. 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 Chest pain History of cardiac arrest Chronic kidney disease Diverticulitis large intestine w/o perforation or abscess w/bleeding Abdominal ascites Pulmonary hypertension, secondary Acute hypotension History of COPD History of diabetes mellitus, type II Bradycardia Chest pain of uncertain etiology History of hypertension History of atrial fibrillation History of CHF (congestive heart failure) Peripheral edema Congestive heart failure Morbid obesity with BMI of 40.0-44.9, adult Pericardial effusion with cardiac tamponade Wears glasses Wears dentures Substance abuse Alcohol use Rash Gout High cholesterol PVD (peripheral vascular disease) Easy bruising Seizures Dietary restriction Gastric reflux Injury of back Vapes nicotine containing substance Fall History of pain when walking History of edema Insomnia Major depression On home oxygen therapy Emphysema, unspecified Neuropathy Cardiology follow-up encounter History of ulceration DKA (diabetic ketoacidosis) Cardiac arrest Lichen sclerosus Macular degeneration Essential hypertension Decreased left ventricular function Paroxysmal atrial fibrillation Diverticulosis Migraine Iron deficiency anemia COPD (chronic obstructive pulmonary disease) CHF (congestive heart failure) Neuropathy Kidney failure Hypothyroid Schizoaffective disorder, bipolar type Emphysema lung Diabetes Heart attack Home Medications ?Medication ?Instructions ?Recorded ?Last Taken ?Type apixaban 5 mg tablet (Eliquis) 5 mg PO BID a. fib. 12/24/22 07/27/23 History atorvastatin 20 mg tablet 20 mg PO DAILY cholesterol 12/24/22 07/27/23 History gabapentin 300 mg capsule 300 mg PO 4X/DAY nerve pain 12/25/22 07/27/23 History albuterol sulfate 90 mcg/actuation 1 inh inhalation PRN PRN shortness 12/31/22 Unknown History aerosol inhaler of breath or wheezing trazodone 100 mg tablet 100 mg PO QHS 01/01/23 07/26/23 History aripiprazole 20 mg tablet 20 mg PO QHS mental health 03/09/23 07/26/23 History budesonide-formoterol HFA 80 2 inh inhalation BID breathing 04/27/23 07/27/23 History mcg-4.5 mcg/actuation aerosol inhaler (Symbicort) fluticasone propionate 50 1 spray intranasal DAILY PRN 04/27/23 Unknown History mcg/actuation nasal allergy symptoms spray,suspension divalproex 500 mg tablet,extended 500 mg PO DAILY seizure 07/25/23 07/27/23 History release 24 hr famotidine 20 mg tablet 20 mg PO DAILY acid reflux 07/25/23 07/27/23 History hydrocodone-acetaminophen 5-325mg 1 tab PO Q8H PRN pain 07/25/23 Unknown History 5mg-325mg levothyroxine 100 mcg tablet 100 mcg PO DAILY thyroid 07/25/23 07/27/23 History oxybutynin chloride 5 mg 5 mg PO DAILY 07/25/23 07/27/23 History tablet,extended release 24 hr tiotropium bromide 2.5 2 inh inhalation QDAY #1 ea 08/27/23 Unknown Rx mcg/actuation mist for inhalation (Spiriva Respimat) insulin glargine 100 unit/mL (3 22 unit subcut DAILY diabetes 10/13/23 Unknown History mL) subcutaneous pen (Lantus Solostar U-100 Insulin) benazepril 5 mg tablet 5 mg PO QDAY blood pressure 12/24/23 Unknown History clotrimazole-betamethasone 1 1 applic topical BID 12/24/23 Unknown History %-0.05 % topical cream diclofenac sodium 1 % topical gel 2 g topical ONCE 12/24/23 Unknown History empagliflozin 25 mg tablet 25 mg PO QAM diabetes 12/24/23 Unknown History (Jardiance) epinephrine 0.3 mg/0.3 mL 0.3 mg IM ONCE 12/24/23 Unknown History injection, auto-injector (EpiPen 2-Wayne) meloxicam 7.5 mg tablet 7.5 mg PO QDAY pain 12/24/23 Unknown History naloxegol 25 mg tablet (Movantik) 25 mg PO QAM 12/24/23 Unknown History pantoprazole 40 mg tablet,delayed 40 mg PO QDAY 12/24/23 Unknown History release furosemide 80 mg tablet 40 mg PO QDAY diuretic 01/06/24 Unknown History nystatin 100,000 unit/gram topical 1 applic topical BID 01/06/24 Unknown History powder sucralfate 1 gram tablet 1 g PO QAC 01/06/24 Unknown History tirzepatide 2.5 mg/0.5 mL 5 mg subcut QWEEK 01/06/24 Unknown History subcutaneous pen injector (Mounshayro) valbenazine 80 mg capsule 80 mg PO HS 01/06/24 Unknown History (Ingrezza) Allergy/AdvReac Type Severity Reaction Status Date / Time aspirin Allergy Mild Hives Verified 01/21/24 14:11 erythromycin base Allergy Mild Hives Verified 01/21/24 14:11 Penicillins Allergy Mild Hives Verified 01/21/24 14:11 polyethylene glycol 3350 Allergy Mild Nausea/Vom/ Verified 01/21/24 14:11 (From Miralax) Diarrhea tramadol Allergy Mild Hives Verified 01/21/24 14:11 tomato Allergy Food Verified 01/21/24 14:11 Allergy Family History Mother Heart disease Hypertension Cancer Father Brain aneurysm age 40 CVA (cerebral vascular accident) Cancer Brother Colon cancer Surgical History History of bilateral knee replacement Hx of vein stripping Hx of toe surgery History of lithotripsy History of delivery History of bilateral cataract extraction History of cholecystectomy H/O: hysterectomy Social History Smoking Status: Current every day smoker tobacco type: cigarettes and e- cigarettes Tobacco: How many years used: 18 Electronic Cigarette Use: with nicotine second hand exposure: No alcohol intake: never substance use type: does not use caffeine: Yes Vital Signs Vital Signs Vital Signs: 01/23/24 17:02 11/17/24 18:06 01/23/24 19:00 Temperature 97.0 F L 98 F 97.5 F L Temperature Source Temporal Temporal Temporal Pulse Rate 77 54 L 54 L Pulse Strength Respiratory Rate 19 H 22 H 14 Blood Pressure 169/118 H 120/57 L 114/51 L Blood Pressure Mean 135 78 72 Blood Pressure Source Blood Pressure Position Blood Pressure Location Pulse Ox 96 99 93 Oxygen Delivery Method Room Air Room Air Room Air 01/23/24 19:15 01/23/24 20:10 01/23/24 20:55 Temperature 96.7 F L 96.7 F L Temperature Source Axillary Pulse Rate 53 L 49 L 48 L Pulse Strength Respiratory Rate 16 12 14 Blood Pressure 105/56 L 125/57 H 138/61 H Blood Pressure Mean 72 79 86 Blood Pressure Source Blood Pressure Position Blood Pressure Location Pulse Ox 96 97 96 Oxygen Delivery Method Room Air Room Air 01/23/24 21:50 01/23/24 22:29 01/24/24 05:15 Temperature 96.6 F L 98.3 F Temperature Source Temporal Oral Pulse Rate 68 72 Pulse Strength Respiratory Rate 20 H 20 H Blood Pressure 113/60 121/56 H Blood Pressure Mean 77 77 Blood Pressure Source Monitor Monitor Blood Pressure Position Semi-Fowlers Semi-Fowlers Blood Pressure Location Right Arm Left Arm Pulse Ox 96 96 94 Oxygen Delivery Method Room Air Room Air Room Air 01/24/24 06:50 01/24/24 08:05 01/24/24 08:05 Temperature Temperature Source Pulse Rate Pulse Strength Normal (2+) Respiratory Rate Blood Pressure Blood Pressure Mean Blood Pressure Source Blood Pressure Position Blood Pressure Location Pulse Ox Oxygen Delivery Method Room Air Room Air 01/24/24 09:30 Temperature 98.0 F Temperature Source Oral Pulse Rate 72 Pulse Strength Respiratory Rate 18 Blood Pressure 132/63 H Blood Pressure Mean 86 Blood Pressure Source Monitor Blood Pressure Position Semi-Fowlers Blood Pressure Location Right Arm Pulse Ox 94 Oxygen Delivery Method Room Air Weight Weight: 99 kg Body Mass Index (BMI) 35.2 Physical Exam Neuro Neuro Narrative: -? General: Laying comfortably in bed; in no acute distress. -? HENT: Normal oropharynx and mucosa. Normal external appearance of ears and nose. Exophthalmos. -? Neck: Supple, no pain or tenderness -? CV:? No peripheral edema. -? Pulmonary:? Normal respiratory effort. -? Ext: No cyanosis, edema, or deformity -? Skin: No rash. Normal palpation of skin.? -? Musculoskeletal: full range of motion; no joint tenderness. Normal digits and nails by inspection. No clubbing. -? NEURO: -? Mental Status: The patient was alert and oriented to time, place, and person. Normal recent/remote memory, concentration, and general fund of knowledge. -? Language: speech is fluent.? Naming, repetition, fluency, and comprehension intact. -? Cranial Nerves: PERRL 3 mm/brisk. EOMI, visual boyd full, no facial asymmetry, facial sensation intact, hearing intact, tongue midline, no evidence of atrophy or fibrillations. As performed by the nurse Sternocleidomastoid and trapezius were equally strong. Soft palate raises equally, no uvular deviations -? Motor: able to lift both arm and leg against gravity. 3 l R L 3 l R L -? Tone: is normal and bulk is normal -? Sensation- Intact to light touch except right side of the face -? Coordination: resting bilateral upper extremity high frequency tremor was noted. -? Gait- deferred Lab / Micro Data 01/24/24 05:12 01/24/24 05:12 Labs: Laboratory Results - last 24 hr 01/23/24 17:45: WBC 10.8, RBC 4.04 L, Hgb 11.3 L, Hct 36.8 L, MCV 91.1, MCH 28.0, MCHC 30.7 L, RDW Std Deviation 49.4 H, RDW Coeff of Penny 14.8 H, Plt Count 209, MPV 10.1, Immature Gran % (Auto) 0.400, Neut % (Auto) 74.3 H, Lymph % (Auto) 12.3 L, Coleman % (Auto) 9.2, Eos % (Auto) 3.2, Baso % (Auto) 0.6, Absolute Neuts (auto) 8.0 H, Absolute Lymphs (auto) 1.33, Nucleated RBC % 0 01/23/24 17:52: Sodium 138, Potassium 3.5, Chloride 104, Carbon Dioxide 29.0, Anion Gap 5, BUN 62 H, Creatinine 2.32 H, Estim Creat Clear Calc 27.71, Est GFR (MDRD) Af Amer 27 L, Est GFR (MDRD) Non-Af 22 L, BUN/Creatinine Ratio 26.7 H, Glucose 98, Calcium 9.4, Phosphorus 3.6, Magnesium 2.4, Total Bilirubin 0.30, AST 20, ALT 16, Alkaline Phosphatase 61, Total Creatine Kinase 205 H, Total Protein 7.1, Albumin 3.3, Globulin 3.8, Albumin/Globulin Ratio 0.9 01/23/24 17:53: Urine Color Yellow, Urine Clarity Sl. Cloudy, Urine pH 5.0, Ur Specific Slaughter 1.015, Urine Protein 30 H, Urine Glucose (UA) 100 H, Urine Ketones Negative, Urine Occult Blood 25 H, Urine Nitrite Negative, Urine Bilirubin Negative, Urine Urobilinogen Normal, Ur Leukocyte Esterase 500 H, Urine RBC 5-10 SEEN, Urine WBC 5-10 SEEN, Ur Squamous Epith Cells 0-5 SEEN, Urine Bacteria 1+, Hyaline Casts 0-5 SEEN, Urine Mucus 1+ 01/23/24 18:46: Ammonia 22.0 01/23/24 21:58: Valproic Acid 14 L 01/23/24 22:29: POC Glucose 123 H 01/24/24 05:12: WBC 8.4, RBC 3.94 L, Hgb 11.1 L, Hct 35.4 L, MCV 89.8, MCH 28.2, MCHC 31.4 L, RDW Std Deviation 48.4 H, RDW Coeff of Penny 14.9 H, Plt Count 168, MPV 10.0, Immature Gran % (Auto) 0.500, Neut % (Auto) 69.4, Lymph % (Auto) 17.5 L, Coleman % (Auto) 8.0, Eos % (Auto) 3.9, Baso % (Auto) 0.7, Absolute Neuts (auto) 5.8, Absolute Lymphs (auto) 1.47, Nucleated RBC % 0, Sodium 141, Potassium 3.5, Chloride 109 H, Carbon Dioxide 30.0, Anion Gap 2 L, BUN 50 H, Creatinine 1.76 H, Estim Creat Clear Calc 38.33, Est GFR (MDRD) Af Amer 37 L, Est GFR (MDRD) Non-Af 31 L, BUN/Creatinine Ratio 28.4 H, Glucose 114 H, Calcium 9.1, Total Bilirubin 0.40, AST 19, ALT 15, Alkaline Phosphatase 55, Total Creatine Kinase 166, Total Protein 6.3 L, Albumin 2.8 L, Globulin 3.5, Albumin/Globulin Ratio 0.8 L, TSH 1.480, Free T4 1.33 01/24/24 06:19: POC Glucose 131 H Micro: Microbiology 01/23/24 17:53 Urine Catheter - Catheter Urine Culture - Preliminary Staphylococcus aureus ABG Data ABG results: ABG 01/23/24 18:56 Specimen Type DEIDRA Sample Site Not entered VBG pH 7.48 H VBG pO2 42 H VBG HCO3 30 H VBG Total CO2 31 VBG O2 Sat (Calc) 81 H VBG Base Excess 6 H POC Mix VBG pCO2 Pt Tmp 40.1 L O2 Delivery Device Room Air Rhythm Strip Rhythm Strip: Sinus Rhythm Rate: 50 Ectopy: None Imaging Radiology Impression Brain CT 01/23/24 17:38 IMPRESSION: No acute intracranial findings. Electronically Signed: Jj Florentino MD at 19:02 EST , Active Medications Active Medications Active Medications: Current Medications Generic Name Dose Route Start Last Admin Trade Name Freq PRN Reason Stop Dose Admin Acetaminophen 650 mg 01/23/24 21:40 Acetaminophen 650 Mg Suppository RC Q4H PRN PRN Fever, pain 1-10 Acetaminophen 650 mg 01/23/24 21:40 Acetaminophen 325 Mg Tablet PO Q4H PRN PRN Fever, pain 1-10/10 Hydrocodone Bitart/Acetaminophen 1 tablet 01/23/24 21:40 Hydrocodone Bitartrate/Apap 5/325 Tablet PO Q8H PRN pain Al Hydroxide/Mg Hydroxide 30 ml 01/23/24 21:40 Mag Hydrox/Al Hydrox/Simeth 30 Ml Udc PO Q6H PRN PRN Gastric Burning Albuterol Sulfate 2.5 mg 01/23/24 21:40 Albuterol 2.5 Mg/3 Ml Vial.Neb. INHALATION Q2H PRN PRN Dyspnea, wheezing Apixaban 5 mg 01/23/24 22:00 01/24/24 09:32 Apixaban 5 Mg Tablet PO 5 mg BID PAIGE Administration Aripiprazole 20 mg 01/23/24 22:00 01/24/24 00:36 Aripiprazole 10 Mg Tablet PO 20 mg QHS PAIGE Administration Atorvastatin Calcium 20 mg 01/24/24 10:00 01/24/24 09:33 Atorvastatin Calcium 20 Mg Tablet PO 20 mg DAILY PAIGE Administration Budesonide 0.5 mg 01/23/24 21:40 Budesonide Respules 0.5 Mg/2 Ml Ampul.Neb. INHALATION BID.RT PAIGE Calamine/Phenol 1 applic 01/23/24 22:00 01/24/24 09:32 Menthol/Lanolin/Calamine/Znox 113 Gm Tube TOPICAL 1 applic 4X/DAY PAIGE Administration Protocol Clarify Med Order 1 each 01/23/24 22:30 01/24/24 00:36 Clarify Order NOTE 1 each CLARIFY PAIGE Administration Divalproex Sodium 500 mg 01/24/24 10:00 01/24/24 09:32 Divalproex (Er) 500 Mg Tablet PO 500 mg DAILY PAIGE Administration Famotidine 20 mg 01/24/24 10:00 01/24/24 09:33 Famotidine 20 Mg Tablet PO 20 mg DAILY PAIGE Administration Glucagon 1 mg 01/23/24 21:40 Glucagon 1 Mg/Ml Syringe IM X1 PRN HYPOGLYCEMIA Protocol Guaifenesin 20 ml 01/23/24 21:40 Guaifenesin 10 Ml Udc (200mg/10ml) PO Q4H PRN PRN COUGH Hydralazine HCl 10 mg 01/23/24 21:40 Hydralazine 20 Mg/Ml Vial IV Q4H PRN PRN SBP > 160 Protocol Meropenem 1 gm/ Sodium 120 mls @ 33 mls/hr 01/24/24 10:00 01/24/24 10:15 Chloride IV 33 mls/hr Q12 PAIGE Administration Dextrose 250 mls @ 0 mls/hr 01/23/24 21:40 Dextrose 10%-Water IV .Q0M PRN HYPOGLYCEMIA Protocol As Directed Sodium Chloride 500 mls @ 15 mls/hr 01/23/24 21:42 IV .[id number] PRN Saline Flush Sodium Chloride 500 mls @ 15 mls/hr 01/23/24 21:42 IV .[id number] PRN Additional IVPB Infusion Insulin Glargine 22 unit 01/24/24 10:00 01/24/24 09:32 Insulin Glargine-Yfgn 100 Unit/Ml Pen SC 22 unit DAILY PAIGE Administration Insulin Human Lispro 0 unit 01/24/24 07:00 01/24/24 06:22 Insulin Lispro 100 Unit/Ml Insuln.Pen SC Not Given ACHS PAIGE Protocol Levothyroxine Sodium 100 mcg 01/24/24 06:00 01/24/24 06:22 Levothyroxine 100 Mcg Tablet PO 100 mcg DAILY@0600 PAIGE Administration Melatonin 3 mg 01/23/24 22:00 Melatonin 3 Mg Tablet PO QHS PRN PRN INSOMNIA Non-Formulary Medication 80 mg 01/23/24 22:00 Valbenazine [Ingrezza] PO HS PAIGE Nystatin 1 applic 01/23/24 22:00 01/24/24 06:22 Nystatin Powder 15gm Bottle TOPICAL 1 applic TID PAIGE Administration Protocol Ondansetron HCl 4 mg 01/23/24 21:40 Ondansetron 4 Mg/2 Ml Vial IV Q8H PRN PRN NAUSEA/VOMITING Pantoprazole Sodium 40 mg 01/24/24 10:00 01/24/24 09:32 Pantoprazole Sodium 40 Mg Tablet PO 40 mg DAILY PAIGE Administration Prochlorperazine Edisylate 5 mg 01/23/24 21:40 Prochlorperazine 10 Mg/2 Ml Vial IV Q4H PRN PRN Breakthrough Nausea/Vomiting Psyllium Hydrophilic Mucilloid 1 packet 01/24/24 10:00 Psyllium 1 Packet PO DAILY PRN PRN Constipation Sodium Chloride 10 - 40 ml 01/23/24 21:42 0.9% Saline Lock 10 Ml Syringe IV UD PRN SALINE FLUSH Sucralfate 1 gm 01/24/24 07:00 01/24/24 10:36 Sucralfate 1 Gm Tablet PO 1 gm TIDAC PAIGE Administration
[2024-01-24 12:12] LABS: Bedside Glucose 139 mg/dL (74-106)
--- NOTE | 2024-01-24 14:34 | CHAPLAIN ---
Type of Pastoral Visit _x__ Initial Visit ___ Follow-up Visit ___ On-call Visit ___ General Patient Visit ___ Spiritual Assessment ___ Family Conference ___ Bereavement ___ Rapid Response ___ Code Blue ___ Other (describe below) Pastoral Care Referral From _x__ Patient ___ Family ___ Nurse ___ Physician ___ Acid Treater ___ Flavorer ___ Other (describe below) Sacrament/Intervention _x__ Active listening ___ Anointing ___ Taoism ___ Bereavement ___ Communion ___ Liberty exploration ___ ___ Life review _x__ Prayer ___ Reconciliation ___ Sacrament of Sick _x__ Supportive presence ___ Wedding ___ Other (describe below) Pastoral Comments patient is alert and has the TV on; pt acknowledges this final application reviewer and is welcoming of care; pt states that she is better but not well yet; pt is anxious about getting home and is worried about her cat; pt is tearful; pt states that she has family in the area but doesn't know what they are doing for her yet; pt is given calm assurance of good care and of safety in the hospital; pt is asked about what she can think about to give herself more calm and peace; pt is asked if prayer and her liberty are helpful to her and she responds yes; pt welcomes prayer and the presence of this final application reviewer for spiritual care
--- NOTE | 2024-01-24 15:15 | CASEMGMT ---
HAKEEM DELUNA Face to Face with patient for initial transition planning/care coordination assessment. RN CM introduced self and role at [facility]. Patient lying in bed, alert and oriented, family at bedside. Patient willing to participate in assessment and is able to answer all questions appropriately. Care providers, pharmacy, and demographics verified. Strata: 3 PCP: [facility] Specialists: Jose, generalist; Alba, sprinkler fitter; Man, a p supervisor; Jos Becerra, mysql database administrator; Jj, ortho Preferred Pharmacy: [facility] at discharge. Insurance: [facility] Dual Prescription Benefit: yes Living Will/HPOA: none LNOK: sister, brother Living Arrangements: Patient lives in an apartment at [facility] with elevator to apartment. Patient states she is independent at home. Transportation: sisters DME/HHC: Patient has shower chair, cane, walker, rollalator, grab bars, cpap, pulse ox and home oyxgen through [facility] as needed with portable tank. No previous HHC or SNF. Patient has aides through [facility]. Patient is active with palliative care. Patient wishes to discharge home, denies need for home health at this time as she is not homebound, will monitor for outpatient therapy at discharge. Patient states she has no further needs or concerns at this time. CM to follow for discharge planning needs that may arise. Disposition Plan: Patient to discharge home with family support and follow-up plans in place. Will monitor for outpatient therapy. Mary MONTGOMERY, RN, CM
[2024-01-24 15:30] VITALS: BP 139/84; PULSE 69; RESP 18; TEMP 36.7; O2SAT 97
[2024-01-24] MEDS: Sodium Ferric Gluconat 125 MG in 0.9% Normal Saline 100 ML 110 MG IV (16:14)
[2024-01-24 16:38] LABS: Bedside Glucose 107 mg/dL (74-106)
[2024-01-24] MEDS: 0.9% Saline Lock 10 ML Syringe IV (17:39)
[2024-01-24 22:18] VITALS: BP 126/57; PULSE 67; RESP 16; TEMP 36.8; O2SAT 97
[2024-01-24] MEDS: Insulin Lispro 100 UNIT/ML INSULN.PEN SC (22:34)
[2024-01-24 22:54] LABS: Bedside Glucose 172 mg/dL (74-106)
[2024-01-24] MEDS: Acetaminophen 325 MG Tablet 650 MG PO (23:27)
[2024-01-25 03:55] VITALS: RESP 20
[2024-01-25 03:57] VITALS: BP 138/56; PULSE 60; RESP 20; TEMP 36.6; O2SAT 93
[2024-01-25] MEDS: Levothyroxine 100 MCG Tablet PO (05:33)
[2024-01-25] MEDS: Nystatin Powder 15gm Bottle 1 APPLIC TOPICAL ×3 (05:33→21:04)
[2024-01-25] MEDS: Ondansetron 4 MG/2 ML Vial IV (05:35)
[2024-01-25 05:38] VITALS: BMI 36.1
[2024-01-25 06:27] LABS: Absolute Lymphocyte Count 1.36 X10^3/uL (0.83-4.51); Absolute Neutrophil Count 4.7 X10^3/uL (2.0-7.7); Basophil# 0.03 X10^3/uL; Basophil% 0.4 % (0-1); Eosinophil# 0.22 X10^3/uL; Eosinophils% 3.1 % (0-5); Hematocrit 32.9 % (37-47); Hemoglobin 10.3 g/dL (12.0-15.0); Lymphocyte # 1.36 X10^3/ul (0.83-4.51); Lymphocyte % 19.2 % (19-41); Mean Corp Hgb Conc 31.3 g/dL (32-36); Mean Corpuscular Hgb 27.9 pg (27.0-32.0); Mean Corpuscular Volume 89.2 fL (81-99); Mean Platelet Vol. 9.6 fl (6.2-12.0); Monocyte% 11.3 % (0-10); NRBC Flagged by Analyzer 0 % (0-5); Neutrophil # 4.66 X10^3/uL (2.7-7.7); Neutrophil % 65.6 % (47-70); Platelet Count 156 K/mm3 (150-450); RBC Distribution Width CV 14.6 % (11.6-14.6); RBC Distribution Width SD 47.3 fl (35.1-43.9); Red Blood Count 3.69 M/mm3 (4.2-5.4); White Blood Count 7.1 K/mm3 (4.4-11.0)
[2024-01-25] MEDS: Sucralfate 1 GM Tablet PO ×2 (06:29→15:22)
[2024-01-25 06:41] LABS: Anion Gap 1 (5-15); BUN 32 mg/dL (7-18); BUN/Creat Ratio 28.8 RATIO (10-20); Calcium,Total 9.1 mg/dL (8.5-10.1); Chloride 111 mmol/L (98-107); Creatinine, Serum 1.11 mg/dL (0.55-1.02); EST Glomerular Filtration Rate 53 mL/min (>60); Est Glom Filt Rate - Afr Amer 64 mL/min (>60); Estimated Creatinine Clearance 61.54 ml/min; Glucose 103 mg/dL (74-106); Potassium 2.9 mmol/L (3.5-5.1); Sodium Level 144 mmol/L (136-145)
[2024-01-25 06:49] LABS: Bedside Glucose 98 mg/dL (74-106)
--- NOTE | 2024-01-25 07:43 | PN.HOSP_ITS ---
Reason for Visit Reason for Visit: Diagnoses Altered mental status, unspecified (01/23/24) Subjective Subjective Feels well. No new complaints. Objective Data Objective Data Vital Signs: Vital Signs Temp Pulse Resp BP Pulse Ox O2 Del Method 36.6 C 60 20 H 138/56 H 93 Room Air 01/25/24 03:57 01/25/24 03:57 01/25/24 03:57 01/25/24 03:57 01/25/24 03:57 01/25/24 06:59 Oxygen Delivery Method Room Air Weight: 101.4 kg Body Mass Index (BMI) 36.1 Intake & Output: Intake and Output for Last 24 Hours 01/23/24 01/24/24 01/25/24 23:59 23:59 23:59 Intake Total 1140.0 / 1140.0 2505 / 2705 350 / 350 Output Total 750 / 750 Balance 1140.0 / 1140.0 1755 / 1955 350 / 350 Lab / Micro Data 01/25/24 05:33 01/25/24 05:33 Labs: Laboratory Results - last 24 hr 01/24/24 11:55: POC Glucose 139 H 01/24/24 16:13: POC Glucose 107 H 01/24/24 22:28: POC Glucose 172 H 01/25/24 05:33: WBC 7.1, RBC 3.69 L, Hgb 10.3 L, Hct 32.9 L, MCV 89.2, MCH 27.9, MCHC 31.3 L, RDW Std Deviation 47.3 H, RDW Coeff of Penny 14.6, Plt Count 156, MPV 9.6, Immature Gran % (Auto) 0.400, Neut % (Auto) 65.6, Lymph % (Auto) 19.2, [place] % (Auto) 11.3 H, Eos % (Auto) 3.1, Baso % (Auto) 0.4, Absolute Neuts (auto) 4.7, Absolute Lymphs (auto) 1.36, Nucleated RBC % 0, Sodium 144, Potassium 2.9 L, C hloride 111 H, Carbon Dioxide 32.0, Anion Gap 1 L, BUN 32 H, Creatinine 1.11 H, Estim Creat Clear Calc 61.54, Est GFR (MDRD) Af Amer 64, Est GFR (MDRD) Non-Af 53 L, BUN/Creatinine Ratio 28.8 H, Glucose 103, Calcium 9.1 01/25/24 06:29: POC Glucose 98 Micro: Microbiology 01/23/24 17:53 Urine Catheter - Catheter Urine Culture - Preliminary Staphylococcus aureus Rhythm Strip Rhythm Strip: Sinus Rhythm Rate: 50 Ectopy: None Physical Exam Const alert and no apparent distress HEENT head/scalp atraumatic and moist oral mucous membranes Resp normal respiratory effort, no retractions, no use of accessory muscles and clear to auscultation bilaterally Cardio regular rate, regular rhythm, S1 normal heart sound and S2 normal heart sound GI normal to inspection, nondistended, normoactive bowel sounds and soft to palpation Neuro Sensorium / Orientation: awake and alert Assessment & Plan Assessment/Plan (1) Altered mental status: PLAN: Plan Metabolic encephalopathy * Resolved. Likely due to dehydration. Unclear etiology. Urinalysis here is rather benign looking. Urine culture S. aureus. * head CT negative * Avoid potentiating medications * Valproic acid level low at 14. * EEG performed. * Seen by neurology. No additional inpatient work up necessary. Abnormal UCx. * UA benign, but UCx growing out S. aureus. * DC meropenem. Check BCx. Iron-deficiency anemia * Called by Dr. Parson, who called me a recommended IV iron. Patient also with heme-positive stools. Since Hg is stable, defer GI evaluation to outpt. * Follow up with Dr. Parson. CHELSEY on CKD * Improved. Chronic conditions: * Chronic lumbar back pain: Complicates presentation, for most recent notes in the system possible upcoming laminectomy given ongoing pain, PT/OT/case management consulted for discharge planning. Will hold off on aggressive regimen currently given encephalopathy with reassessment once more alert. * HFpEF, Chronic: 06/25/2023 echocardiogram with EF 65%, mild MVI, mild to moderate TBI, PASP 46 mmHg, will temporarily hold Lasix, KAISER inhibitor, continue statin therapy, Eliquis, per current list does not appear to be on beta-claribel therapy possibly secondary to underlying pulmonary disease concurrently. Has chronic BL LE edema, will place snug kaiser wraps. * Chronic COPD with allergic rhinitis: Will temporally hold home inhaler in the interim transition to ATC budesonide therapy, PRN albuterol, HOB, IS parameters. * Chronic normocytic anemia/iron deficiency anemia: Admission hemoglobin 11.3, MCV 91.1, baseline hemoglobin has been primarily 9-11 although most recent prior to this in 01/12/24 hemoglobin 12.4, following with hematology with most recent visit noted 01/06/[address] Parson, continue to trend. * Hypertension: Temporally holding patient home KAISER inhibitor and Lasix given renal function, judiciously hydrating, add back once appropriate, PRN hydralazine. * Hyperlipidemia: We will continue patient on statin therapy. * Chronic bilateral lower extremity edema: Will place snug kaiser wraps, encourage continued compression stockings outpatient, holding Lasix temporarily as noted. * Diabetes mellitus type II with chronic neuropathy: Hold oral home regimen, continue home insulin regimen, once oral intake deemed safe allow ADA diet, accu checks w/ ISS, hold gabapentin * Anxiety and depression/schizoaffective disorder: We will continue patient valbenazine, trazodone and aripiprazole home regimen, encourage continued outpatient follow-up for counseling and medication review as previously arranged. * Hypothyroidism: Will maintain on home levothyroxine regimen, TSH/FT4 WNL * Seizure disorder: We will continue patient home Depakote regimen, level requested. Will give 500 mg IV depacon x 1 upon admission given notable encephalopathy and assess again in AM for improvement and oral transition. Will also request EEG and neurology input * Lichen sclerosus: Per current list does not appear to be on any as needed or chronic steroid cream, encourage continued outpatient follow-up with Visitor Services Specialist versus dermatology as previously arranged. * Tobacco Abuse: Encouraged cessation, inpatient consultation per RT, NR if desired. * Obesity class II: complicates care and recovery. * PAF: We will continue patient home Eliquis regimen. * GERD: We will continue patient home PPI and sucralfate regimen. VTE prophylaxis: Not indicated as patient is already on apixaban Charges/Coding Visit Charges Inpatient E&M: 21907 Subs Hosp L2
[2024-01-25 09:20] VITALS: BP 125/56; PULSE 56; RESP 17; TEMP 36.4; O2SAT 94
[2024-01-25] MEDS: Pantoprazole Sodium 40 MG Tablet PO (09:23)
[2024-01-25] MEDS: Divalproex (ER) 500 MG Tablet PO (09:24)
[2024-01-25] MEDS: Famotidine 20 MG Tablet PO (09:24)
[2024-01-25] MEDS: HYDROcodone Bitartrate/Apap 5/325 Tablet PO ×2 (09:25→17:49)
[2024-01-25] MEDS: Atorvastatin Calcium 20 MG Tablet PO (09:25)
[2024-01-25] MEDS: APIXABAN 5 MG TABLET PO ×2 (09:25→20:49)
[2024-01-25] MEDS: Insulin Glargine-YFGN 100 UNIT/ML Pen 22 UNIT SC (09:27)
[2024-01-25] MEDS: Menthol/Lanolin/Calamine/Znox 113 GM Tube 1 APPLIC TOPICAL ×3 (09:30→21:04)
[2024-01-25 11:34] LABS: Bedside Glucose 140 mg/dL (74-106)
[2024-01-25 15:20] VITALS: BP 134/64; PULSE 66; RESP 18; TEMP 36.7; O2SAT 94
[2024-01-25] MEDS: Acetaminophen 325 MG Tablet 650 MG PO ×2 (16:46→20:49)
[2024-01-25 17:04] LABS: Bedside Glucose 89 mg/dL (74-106)
[2024-01-25 18:52] VITALS: PULSE 57; RESP 24; O2SAT 91
[2024-01-25] MEDS: Budesonide Respules 0.5 MG/2 ML AMPUL.NEB. INHALATION (18:52)
[2024-01-25 20:35] VITALS: BP 127/50; PULSE 60; RESP 18; TEMP 36.7; O2SAT 92
[2024-01-25] MEDS: 0.9% Saline Lock 10 ML Syringe IV (20:49)
[2024-01-25] MEDS: ARIPiprazole 10 MG Tablet 20 MG PO (21:04)
[2024-01-25 22:17] LABS: Bedside Glucose 98 mg/dL (74-106)
[2024-01-26 02:30] VITALS: BP 123/59; PULSE 62; RESP 20; TEMP 36.5; O2SAT 93
[2024-01-26] MEDS: HYDROcodone Bitartrate/Apap 5/325 Tablet PO (02:42)
[2024-01-26 05:20] VITALS: BP 126/54; PULSE 52; RESP 18; TEMP 36.7; O2SAT 92
[2024-01-26 05:22] VITALS: BMI 36.2
[2024-01-26] MEDS: Levothyroxine 100 MCG Tablet PO (05:25)
[2024-01-26] MEDS: Nystatin Powder 15gm Bottle 1 APPLIC TOPICAL (05:25)
[2024-01-26] MEDS: Sucralfate 1 GM Tablet PO ×2 (06:14→10:11)
[2024-01-26 06:35] VITALS: PULSE 69; RESP 20
[2024-01-26] MEDS: Budesonide Respules 0.5 MG/2 ML AMPUL.NEB. INHALATION (06:42)
[2024-01-26 07:03] LABS: Bedside Glucose 108 mg/dL (74-106)
--- NOTE | 2024-01-26 07:38 | PN.HOSP_ITS ---
Reason for Visit Reason for Visit: Diagnoses Altered mental status, unspecified (01/23/24) Subjective Subjective feels well. ready to go home. Objective Data Objective Data Vital Signs: Vital Signs Temp Pulse Resp BP Pulse Ox O2 Del Method 36.7 C 52 L 18 126/54 H 92 Room Air 01/26/24 05:20 01/26/24 05:20 01/26/24 05:20 01/26/24 05:20 01/26/24 05:20 01/26/24 05:20 Oxygen Delivery Method Room Air Weight: 101.8 kg Body Mass Index (BMI) 36.2 Intake & Output: Intake and Output for Last 24 Hours 01/24/24 01/25/24 01/26/24 23:59 23:59 23:59 Intake Total 2505 / 2705 600 / 600 375 / 375 Output Total 750 / 750 Balance 1755 / 1955 600 / 600 375 / 375 Lab / Micro Data 01/25/24 05:33 01/26/24 08:17 Labs: Laboratory Results - last 24 hr 01/25/24 11:16: POC Glucose 140 H 01/25/24 16:46: POC Glucose 89 01/25/24 21:03: POC Glucose 98 01/26/24 06:12: POC Glucose 108 H Micro: Microbiology 01/23/24 17:53 Urine Catheter - Catheter Urine Culture - Preliminary Staphylococcus aureus Coag Negative Staph GPC Poss Enterococcus sp Gram negative lyndsey Rhythm Strip Rhythm Strip: Sinus Rhythm Rate: 50 Ectopy: None Physical Exam Const alert and no apparent distress HEENT head/scalp atraumatic and moist oral mucous membranes Psych affect normal Assessment & Plan Assessment/Plan (1) Altered mental status: PLAN: Plan Metabolic encephalopathy * Resolved. Likely due to dehydration. Unclear etiology. Urinalysis here is rather benign looking. Urine culture S. aureus. * head CT negative * Avoid potentiating medications * Valproic acid level low at 14. * EEG negative * Seen by neurology. No additional inpatient work up necessary. Abnormal UCx. * UA benign, but UCx growing out S. aureus, SENIOR DIRECTOR INSIGHT, GPC adn GNR. Low CFUs, likely contaminant * DC meropenem. Check BCx. If negative, dc abx. Iron-deficiency anemia * Called by Dr. Parson, who called me a recommended IV iron. Patient also with heme-positive stools. Since Hg is stable, defer GI evaluation to outpt. * Follow up with Dr. Parson. CHELSEY on CKD * Improved. Chronic conditions: * Chronic lumbar back pain: Complicates presentation, for most recent notes in the system possible upcoming laminectomy given ongoing pain, PT/OT/case management consulted for discharge planning. Will hold off on aggressive regimen currently given encephalopathy with reassessment once more alert. * HFpEF, Chronic: 06/25/2023 echocardiogram with EF 65%, mild MVI, mild to moderate TBI, PASP 46 mmHg, will temporarily hold Lasix, KAISER inhibitor, continue statin therapy, Eliquis, per current list does not appear to be on beta-claribel therapy possibly secondary to underlying pulmonary disease concurrently. Has chronic BL LE edema, will place snug kaiser wraps. * Chronic COPD with allergic rhinitis: Will temporally hold home inhaler in the interim transition to ATC budesonide therapy, PRN albuterol, HOB, IS parameters. * Chronic normocytic anemia/iron deficiency anemia: Admission hemoglobin 11.3, MCV 91.1, baseline hemoglobin has been primarily 9-11 although most recent prior to this in 01/12/24 hemoglobin 12.4, following with hematology with most recent visit noted 01/06/[address] Parson, continue to trend. * Hypertension: Temporally holding patient home KAISER inhibitor and Lasix given renal function, judiciously hydrating, add back once appropriate, PRN hydralazine. * Hyperlipidemia: We will continue patient on statin therapy. * Chronic bilateral lower extremity edema: Will place snug kaiser wraps, encourage continued compression stockings outpatient, holding Lasix temporarily as noted. * Diabetes mellitus type II with chronic neuropathy: Hold oral home regimen, continue home insulin regimen, once oral intake deemed safe allow ADA diet, accu checks w/ ISS, hold gabapentin * Anxiety and depression/schizoaffective disorder: We will continue patient valbenazine, trazodone and aripiprazole home regimen, encourage continued outpatient follow-up for counseling and medication review as previously arranged. * Hypothyroidism: Will maintain on home levothyroxine regimen, TSH/FT4 WNL * Seizure disorder: We will continue patient home Depakote regimen, level requested. Will give 500 mg IV depacon x 1 upon admission given notable encephalopathy and assess again in AM for improvement and oral transition. Will also request EEG and neurology input * Lichen sclerosus: Per current list does not appear to be on any as needed or chronic steroid cream, encourage continued outpatient follow-up with Credit Risk Review Officer versus dermatology as previously arranged. * Tobacco Abuse: Encouraged cessation, inpatient consultation per RT, NR if desired. * Obesity class II: complicates care and recovery. * PAF: We will continue patient home Eliquis regimen. * GERD: We will continue patient home PPI and sucralfate regimen. VTE prophylaxis: Not indicated as patient is already on apixaban DC home w [facility]
[2024-01-26 07:40] VITALS: O2SAT 92
[2024-01-26 09:30] VITALS: BP 145/60; PULSE 64; RESP 18; TEMP 36.6; O2SAT 92
[2024-01-26] MEDS: Insulin Glargine-YFGN 100 UNIT/ML Pen 22 UNIT SC (09:31)
[2024-01-26] MEDS: Acetaminophen 325 MG Tablet 650 MG PO (09:31)
[2024-01-26] MEDS: Atorvastatin Calcium 20 MG Tablet PO (09:32)
[2024-01-26] MEDS: APIXABAN 5 MG TABLET PO (09:32)
[2024-01-26] MEDS: Menthol/Lanolin/Calamine/Znox 113 GM Tube 1 APPLIC TOPICAL (09:32)
[2024-01-26] MEDS: Divalproex (ER) 500 MG Tablet PO (09:32)
[2024-01-26] MEDS: Famotidine 20 MG Tablet PO (09:32)
[2024-01-26] MEDS: Pantoprazole Sodium 40 MG Tablet PO (09:32)
[2024-01-26 09:54] LABS: Anion Gap 4 (5-15); BUN 23 mg/dL (7-18); BUN/Creat Ratio 21.3 RATIO (10-20); Calcium,Total 9.2 mg/dL (8.5-10.1); Chloride 108 mmol/L (98-107); Creatinine, Serum 1.08 mg/dL (0.55-1.02); EST Glomerular Filtration Rate 54 mL/min (>60); Est Glom Filt Rate - Afr Amer 66 mL/min (>60); Estimated Creatinine Clearance 63.39 ml/min; Glucose 98 mg/dL (74-106); Potassium 3.4 mmol/L (3.5-5.1); Sodium Level 142 mmol/L (136-145)
[2024-01-26] MEDS: Potassium Chloride Oral Tablet 20 MEQ 40 MEQ PO (10:10)
--- NOTE | 2024-01-26 10:55 | DS.PCM_ITS ---
Providers Date of Admission: 01/23/24 Primary Care Physician: ROSELYN DalalC Consultations 01/23/24 21:40 Neurology [Consult: Tele-Neurology] Routine Consulting Provider: [facility] Reason for Consult: Confusion, suspect UTI, but possible breakthrough seizures EMERGENT Consult: No MD Notified: Yes Date Notified: 01/23/24 Time Notified: 22:46 Method of Notification: Answering Service Nursing Unit Staff Notify [facility] of Tele-Neurology Consult: Yes Reason For Visit: ENCEPHALOPATHY UTI BREAK THROUGH SEIZURES Diagnosis Discharge Diagnosis (1) Altered mental status: Status: Acute Code(s): R41.82 - Altered mental status, unspecified Plan Metabolic encephalopathy * Resolved. Likely due to dehydration. Unclear etiology. Urinalysis here is rather benign looking. Urine culture S. aureus. * head CT negative * Avoid potentiating medications * Valproic acid level low at 14. * EEG negative * Seen by neurology. No additional inpatient work up necessary. Abnormal UCx. * UA benign, but UCx growing out S. aureus, STEAM TURBINE OPERATOR, GPC adn GNR. Low CFUs, likely contaminant * DC meropenem. Check BCx. If negative, dc abx. Iron-deficiency anemia * Called by Dr. Parson, who called me a recommended IV iron. Patient also with heme-positive stools. Since Hg is stable, defer GI evaluation to outpt. * Follow up with Dr. Parson. CHELSEY on CKD * Improved. Chronic conditions: * Chronic lumbar back pain: Complicates presentation, for most recent notes in the system possible upcoming laminectomy given ongoing pain, PT/OT/case management consulted for discharge planning. Will hold off on aggressive regimen currently given encephalopathy with reassessment once more alert. * HFpEF, Chronic: 06/25/2023 echocardiogram with EF 65%, mild MVI, mild to moderate TBI, PASP 46 mmHg, will temporarily hold Lasix, KAISER inhibitor, continue statin therapy, Eliquis, per current list does not appear to be on beta-claribel therapy possibly secondary to underlying pulmonary disease concurrently. Has chronic BL LE edema, will place snug kaiser wraps. * Chronic COPD with allergic rhinitis: Will temporally hold home inhaler in the interim transition to ATC budesonide therapy, PRN albuterol, HOB, IS parameters. * Chronic normocytic anemia/iron deficiency anemia: Admission hemoglobin 11.3, MCV 91.1, baseline hemoglobin has been primarily 9-11 although most recent prior to this in 01/12/24 hemoglobin 12.4, following with hematology with most recent visit noted 01/06/[address] Parson, continue to trend. * Hypertension: Temporally holding patient home KAISER inhibitor and Lasix given renal function, judiciously hydrating, add back once appropriate, PRN hydralazine. * Hyperlipidemia: We will continue patient on statin therapy. * Chronic bilateral lower extremity edema: Will place snug kaiser wraps, encourage continued compression stockings outpatient, holding Lasix temporarily as noted. * Diabetes mellitus type II with chronic neuropathy: Hold oral home regimen, continue home insulin regimen, once oral intake deemed safe allow ADA diet, accu checks w/ ISS, hold gabapentin * Anxiety and depression/schizoaffective disorder: We will continue patient valbenazine, trazodone and aripiprazole home regimen, encourage continued outpatient follow-up for counseling and medication review as previously arranged. * Hypothyroidism: Will maintain on home levothyroxine regimen, TSH/FT4 WNL * Seizure disorder: We will continue patient home Depakote regimen, level requested. Will give 500 mg IV depacon x 1 upon admission given notable encephalopathy and assess again in AM for improvement and oral transition. Will also request EEG and neurology input * Lichen sclerosus: Per current list does not appear to be on any as needed or chronic steroid cream, encourage continued outpatient follow-up with Street Commissioner versus dermatology as previously arranged. * Tobacco Abuse: Encouraged cessation, inpatient consultation per RT, NR if desired. * Obesity class II: complicates care and recovery. * PAF: We will continue patient home Eliquis regimen. * GERD: We will continue patient home PPI and sucralfate regimen. VTE prophylaxis: Not indicated as patient is already on apixaban DC home w [facility] Medications at Discharge Home Medications apixaban 5 mg tablet (Eliquis) 5 mg PO BID a. fib. 12/24/22 atorvastatin 20 mg tablet 20 mg PO DAILY cholesterol 12/24/22 gabapentin 300 mg capsule 300 mg PO 4X/DAY nerve pain 12/25/22 albuterol sulfate 90 mcg/actuation aerosol inhaler 1 inh inhalation PRN PRN shortness of breath or wheezing 12/31/22 trazodone 100 mg tablet 100 mg PO QHS 01/01/23 aripiprazole 20 mg tablet 20 mg PO QHS mental health 03/09/23 budesonide-formoterol HFA 80 mcg-4.5 mcg/actuation aerosol inhaler (Symbicort) 2 inh inhalation BID breathing 04/27/23 fluticasone propionate 50 mcg/actuation nasal spray,suspension 1 spray intranasal DAILY PRN allergy symptoms 04/27/23 divalproex 500 mg tablet,extended release 24 hr 500 mg PO DAILY seizure 07/25/23 famotidine 20 mg tablet 20 mg PO DAILY acid reflux 07/25/23 hydrocodone-acetaminophen 5-325mg 5mg-325mg 1 tab PO Q8H PRN pain 07/25/23 levothyroxine 100 mcg tablet 100 mcg PO DAILY thyroid 07/25/23 oxybutynin chloride 5 mg tablet,extended release 24 hr 5 mg PO DAILY 07/25/23 tiotropium bromide 2.5 mcg/actuation mist for inhalation (Spiriva Respimat) 2 inh inhalation QDAY #1 ea 08/27/23 insulin glargine 100 unit/mL (3 mL) subcutaneous pen (Lantus Solostar U-100 Insulin) 22 unit subcut DAILY diabetes 10/13/23 benazepril 5 mg tablet 5 mg PO QDAY blood pressure 12/24/23 clotrimazole-betamethasone 1 %-0.05 % topical cream 1 applic topical BID 12/24/23 diclofenac sodium 1 % topical gel 2 g topical ONCE 12/24/23 empagliflozin 25 mg tablet (Jardiance) 25 mg PO QAM diabetes 12/24/23 epinephrine 0.3 mg/0.3 mL injection, auto-injector (EpiPen 2-Wayne) 0.3 mg IM ONCE 12/24/23 meloxicam 7.5 mg tablet 7.5 mg PO QDAY pain 12/24/23 naloxegol 25 mg tablet (Movantik) 25 mg PO QAM 12/24/23 pantoprazole 40 mg tablet,delayed release 40 mg PO QDAY 12/24/23 furosemide 80 mg tablet 40 mg PO QDAY diuretic 01/06/24 nystatin 100,000 unit/gram topical powder 1 applic topical BID 01/06/24 sucralfate 1 gram tablet 1 g PO QAC 01/06/24 tirzepatide 2.5 mg/0.5 mL subcutaneous pen injector (Mounjaro) 5 mg subcut QWEEK 01/06/24 valbenazine 80 mg capsule (Ingrezza) 80 mg PO HS 01/06/24 Hospital Course Operations None Procedures Electroencephalogram Summary of Care Provided Minutes Spent on Discharge: 32 Hospital Course: Patient presents with confusion. Is concerned the patient may have had a seizure initial presentation but there was no obvious source. [place] felt the patient may have had a urinary tract infection but her urinalysis was benign. Eventually urine culture showed Staph aureus and being a Staph aureus is not known to cause urinary tract infections but but could be a source of a more serious infection, patient did have blood cultures drawn. Urine culture actually showed multiple organisms but with low CFU's therefore indicating colonization or poor sample and not an actual true infection. Patient is overall doing well and be discharged home in stable condition. Weight / BMI Weight Weight: 101.8 kg Body Mass Index (BMI) 36.2 ABG / Lab / Microbiology Data 01/25/24 05:33 01/26/24 08:17 Laboratory: Laboratory Results - last 24 hr 01/25/24 11:16: POC Glucose 140 H 01/25/24 16:46: POC Glucose 89 01/25/24 21:03: POC Glucose 98 01/26/24 06:12: POC Glucose 108 H 01/26/24 08:17: Sodium 142, Potassium 3.4 L, Chloride 108 H, Carbon Dioxide 31.0, Anion Gap 4 L, BUN 23 H, Creatinine 1.08 H, Estim Creat Clear Calc 63.39, Est GFR (MDRD) Af Amer 66, Est GFR (MDRD) Non-Af 54 L, BUN/Creatinine Ratio 21.3 H, Glucose 98, Calcium 9.2 Microbiology: Microbiology 01/23/24 17:53 Urine Catheter - Catheter Urine Culture - Preliminary Staphylococcus aureus Staphylococcus epidermidis Enterococcus faecalis ESBL Escherichia coli D/C Instructions Discharge Diet: 2000 Calorie Control Diet DC O2, CPAP, BIPAP Needs Additional Home O2 Discharge instructions: No DC home with Oxygen: No Meaningful Use Info Meaningful Use Meaningful Use Diagnoses (Choose all that apply): None applicable Ischemic Stroke Statin Dosing Therapy Reference: STATIN DOSE THERAPY REFERENCE: * Patients > 75 years receive moderate or high dose statin therapy. * Patients 75 years or YOUNGER should receive HIGH intensity statin dose unless contraindicated. You will be required to document reason for non-treatment if statin daily dose does not meet guidelines. HIGH DOSE STATIN THERAPY DAILY Atorvastatin > than or = to 40 mg Rosuvastatin > than or = to 20 mg Amlodipine + Atorvastatin > than or = to 2.5/40 mg Ezetimibe + Simvastatin 10/80 mg Simvastatin 80mg Discharge Plan Admission Admit Date/Time: 01/23/24 20:44 Primary Reason for Your Visit: confusion Attending Provider: Goldy Francois Primary Care Provider: Eric Marion [facility] Consulting Providers: Troy Dejesus; Yazmin Abdalla; Jacobo Lanza; Sheela Benedict; Dawn Salinas; Allyson Whitt; Hardy Taveras; Christy Karimi; JUSTINE HOBBS; Dustin Rojas; Billie Leigh; Miroslava Minor; Inocente Aguilar; Leta Patel; Esha Woods; Jimmy Bonner; Sydnee Adler; Brayden Leonardo; Juan Antonio Pacheco; London Toledo; Elena Falcon; Mushtaq Napier; Elroy Singletary; Lexi Freeman; Tito Esteves; Lizette Garsia; Philip June Discharge Orders/Prescriptions Prescriptions: Continued atorvastatin 20 mg tablet 20 mg PO DAILY Eliquis 5 mg tablet 5 mg PO BID gabapentin 300 mg capsule 300 mg PO 4X/DAY fluticasone propionate 50 mcg/actuation spray,suspension 1 spray intranasal DAILY PRN (Reason: allergy symptoms) Patient Comments: instill 2 sprays in each nostril daily budesonide-formoterol [Symbicort] 80-4.5 mcg/actuation HFA aerosol inhaler 2 inh inhalation BID Patient Comments: INHALE TWO PUFFS BY MOUTH TWICE DAILY. RINSE MOUTH AFTER USE Spiriva Respimat 2.5 mcg/actuation mist 2 inh inhalation QDAY Qty: 1 6RF Rx Instructions: administer at approximately the same time(s) each day nystatin 100,000 unit/gram powder 1 applic topical BID furosemide 80 mg tablet 40 mg PO QDAY sucralfate 1 gram tablet 1 g PO QAC benazepril 5 mg tablet 5 mg PO QDAY clotrimazole-betamethasone 1-0.05 % cream 1 applic topical BID epinephrine [EpiPen 2-Wayne] 0.3 mg/0.3 mL auto-injector 0.3 mg IM ONCE Rx Instructions: as a single dose; may repeat once meloxicam 7.5 mg tablet 7.5 mg PO QDAY Jardiance 25 mg tablet 25 mg PO QAM Movantik 25 mg tablet 25 mg PO QAM Rx Instructions: must be taken on empty stomach; no food 1 hr after or 2-3 hrs before dose diclofenac sodium 1 % gel 2 g topical ONCE Rx Instructions: apply to single elbow, wrist or hand; for hand includes palm/fingers/back of hand pantoprazole 40 mg tablet,delayed release (DR/EC) 40 mg PO QDAY Ingrezza 80 mg capsule 80 mg PO HS albuterol sulfate 90 mcg/actuation HFA aerosol inhaler 1 inh INHALATION PRN PRN (Reason: shortness of breath or wheezing) trazodone 100 mg tablet 100 mg PO QHS Patient Comments: TAKE 1 TABLET BY MOUTH EVERY DAY AT NIGHT aripiprazole 20 mg tablet 20 mg PO QHS Patient Comments: TAKE ONE TABLET BY MOUTH DAILY AT 9AM hydrocodone-acetaminophen 5-325 mg tablet 1 tab PO Q8H PRN (Reason: pain) famotidine 20 mg tablet 20 mg PO DAILY divalproex 500 mg tablet extended release 24 hr 500 mg PO DAILY levothyroxine 100 mcg tablet 100 mcg PO DAILY oxybutynin chloride 5 mg tablet extended release 24hr 5 mg PO DAILY insulin glargine [Lantus Solostar U-100 Insulin] 100 unit/mL (3 mL) insulin pen 22 unit subcut DAILY Mounjaro 2.5 mg/0.5 mL pen injector 5 mg subcut QWEEK Referrals / Follow Up: Eric Marion Pushpa, SPA ASSISTANT MANAGER-C [Primary Care Provider] - Within 2 Weeks Disposition Disposition (needs filled in before D/C Order can be placed): Home Health Service Charges/Coding Visit Charges Inpatient E&M: 83247 Disch Hosp >30min
--- NOTE | 2024-01-26 11:30 | PHA.DC.MR.R ---
Pharmacy [place] Med Reconciliation Pharmacy Service has performed discharge medication reconciliation for this patient. The patient's discharge medication list was reviewed for discrepancies and discrepancies were resolved. Medications at Discharge Home Medications apixaban 5 mg tablet (Eliquis) 5 mg PO BID blood thinner 12/24/22 atorvastatin 20 mg tablet 20 mg PO DAILY cholesterol 12/24/22 gabapentin 300 mg capsule 300 mg PO 4X/DAY nerve pain 12/25/22 albuterol sulfate 90 mcg/actuation aerosol inhaler 1 inh inhalation PRN PRN shortness of breath or wheezing 12/31/22 trazodone 100 mg tablet 100 mg PO QHS sleep 01/01/23 aripiprazole 20 mg tablet 20 mg PO QHS mental health 03/09/23 budesonide-formoterol HFA 80 mcg-4.5 mcg/actuation aerosol inhaler (Symbicort) 2 inh inhalation BID breathing 04/27/23 fluticasone propionate 50 mcg/actuation nasal spray,suspension 1 spray intranasal DAILY PRN allergy symptoms 04/27/23 divalproex 500 mg tablet,extended release 24 hr 500 mg PO DAILY seizure 07/25/23 famotidine 20 mg tablet 20 mg PO DAILY acid reflux 07/25/23 hydrocodone-acetaminophen 5-325mg 5mg-325mg 1 tab PO Q8H PRN pain 07/25/23 levothyroxine 100 mcg tablet 100 mcg PO DAILY thyroid 07/25/23 oxybutynin chloride 5 mg tablet,extended release 24 hr 5 mg PO DAILY bladder 07/25/23 tiotropium bromide 2.5 mcg/actuation mist for inhalation (Spiriva Respimat) 2 inh inhalation QDAY breathing #1 ea 08/27/23 insulin glargine 100 unit/mL (3 mL) subcutaneous pen (Lantus Solostar U-100 Insulin) 22 unit subcut DAILY diabetes 10/13/23 benazepril 5 mg tablet 5 mg PO QDAY blood pressure 12/24/23 clotrimazole-betamethasone 1 %-0.05 % topical cream 1 applic topical BID skin irritation 12/24/23 diclofenac sodium 1 % topical gel 2 g topical ONCE 12/24/23 empagliflozin 25 mg tablet (Jardiance) 25 mg PO QAM diabetes 12/24/23 epinephrine 0.3 mg/0.3 mL injection, auto-injector (EpiPen 2-Wayne) 0.3 mg IM ONCE allergic reaction 12/24/23 meloxicam 7.5 mg tablet 7.5 mg PO QDAY pain 12/24/23 naloxegol 25 mg tablet (Movantik) 25 mg PO QAM constipation 12/24/23 pantoprazole 40 mg tablet,delayed release 40 mg PO QDAY acid reflux 12/24/23 furosemide 80 mg tablet 40 mg PO QDAY diuretic 01/06/24 nystatin 100,000 unit/gram topical powder 1 applic topical BID skin irritation 01/06/24 sucralfate 1 gram tablet 1 g PO QAC stomach 01/06/24 tirzepatide 2.5 mg/0.5 mL subcutaneous pen injector (Mounviviana) 5 mg subcut QWEEK diabetes 01/06/24 valbenazine 80 mg capsule (Ingrezza) 80 mg PO HS 01/06/24
--- NOTE | 2024-01-26 11:32 | CASEMGMT ---
Patient has order for discharge. RN CM in to discuss needs at discharge. Patient declines HHC as she is not home bound. Will return home with resumption of aide services with [facility]. Patient denies need for therapy as she feels she is at her baseline. Patient denied further questions or concerns.
[2024-01-26 11:54] LABS: Bedside Glucose 133 mg/dL (74-106)
== END 2024-01-26 11:49 | disposition home or self-care (01) | DRG 640 ==
LOC: ED 20:28 → PCU 21:04
PROVIDERS: Admitting Provider Family Medicine; Emergency Provider Emergency Medicine; PCP Nurse Practitioner Family
DX: E86.0 Dehydration (principal); G93.41 Metabolic encephalopathy; M62.82 Rhabdomyolysis; N17.9 Acute kidney failure, unspecified; I13.0 Hypertensive heart and chronic kidney disease with heart failure and stage 1 through stage 4 chronic kidney disease, or unspecified chronic kidney disease; I50.32 Chronic diastolic (congestive) heart failure; N39.0 Urinary tract infection, site not specified; E87.3 Alkalosis; F25.0 Schizoaffective disorder, bipolar type; E11.22 Type 2 diabetes mellitus with diabetic chronic kidney disease; D50.9 Iron deficiency anemia, unspecified; G40.909 Epilepsy, unspecified, not intractable, without status epilepticus; I48.0 Paroxysmal atrial fibrillation; J43.9 Emphysema, unspecified; N18.30 Chronic kidney disease, stage 3 unspecified; L90.0 Lichen sclerosus et atrophicus; E03.9 Hypothyroidism, unspecified; E66.812 Obesity, class 2; E11.40 Type 2 diabetes mellitus with diabetic neuropathy, unspecified; Z79.4 Long term (current) use of insulin; K58.9 Irritable bowel syndrome, unspecified; K21.9 Gastro-esophageal reflux disease without esophagitis; E78.00 Pure hypercholesterolemia, unspecified; M54.50 Low back pain, unspecified; J30.9 Allergic rhinitis, unspecified; F17.210 Nicotine dependence, cigarettes, uncomplicated; F17.290 Nicotine dependence, other tobacco product, uncomplicated; G89.29 Other chronic pain; Z88.0 Allergy status to penicillin; Z68.36 Body mass index [BMI] 36.0-36.9, adult; Z79.84 Long term (current) use of oral hypoglycemic drugs; Z79.1 Long term (current) use of non-steroidal anti-inflammatories (NSAID); Z79.01 Long term (current) use of anticoagulants; Z79.85 Long-term (current) use of injectable non-insulin antidiabetic drugs; Z79.51 Long term (current) use of inhaled steroids; Z79.890 Hormone replacement therapy; Z79.899 Other long term (current) drug therapy; R82.89 Other abnormal findings on cytological and histological examination of urine
CPT/HCPCS: 36415; 70450; 80048; 80053; 80164; 81001; 82140; 82550; 82803; 82962; 83735; 84100; 84439; 84443; 85025; 87040; 87077; 87086; 87088; 87186; 93005; 94640; 95819; 97162; 97166; 97530; 97535; 99285; J2185; A4216; J2405; J2916

== ENCOUNTER 2024-02-09 10:54 | Emergency (ER) | payer MEDICARE, MEDICAID, SELFPAY ==
[2024-02-09 10:54] VITALS: BP 143/93; PULSE 59; RESP 22; TEMP 36.3; O2SAT 96
--- NOTE | 2024-02-09 11:33 | RAD_ITS ---
STUDY: X-RAY - ABDOMEN/PELVIS REASON FOR EXAM: Female, 63 years old. Abdominal pain and distention TECHNIQUE: Two AP supine views of the abdomen and pelvis. COMPARISON: None. FINDINGS: Normal visualized lung bases. There is an unremarkable bowel gas pattern. There is no demonstrated free abdominal air. The visualized liver, spleen and kidneys are grossly normal in size and morphology. Normal soft tissue structures. There are diffuse degenerative changes of the visualized lumbar spine, and pelvis. RAD/Abdomen Single View (Portable) IMPRESSION: No acute abnormalities Electronically Signed: Richard Lucio MD at 12:32 EST ,
--- NOTE | 2024-02-09 11:34 | ED.VIS.BACK ---
HPI History of Present Illness Chief Complaint: Back Informant: patient and other (Health aide) Narrative Narrative: Presents here with her health aide after seeing PCP office for worsening back pain. She is having back pain that radiates down her legs bilaterally past her knee. Denies loss of bowel or bladder control. History of spinal stenosis. Sees Dr. Sarmiento, she states she is on gabapentin and on hydrocodone 0.5 tabs 3 times a day. She gets back injections the last time a month ago. Pain has been increasing for months, she had an MRI couple months ago. There is plan for surgery this coming March. She follows Dr. Gardner. She had 1 visit with the discussion of surgery. Due to pain saw PCP office today without worsening sent to the emergency department for pain control and for concerns of constipation. She is not on any stool softeners with her pain medicines. She had liquid stools yesterday. She does not have bowel movements daily. She denies abdominal pain. Denies fevers. She has been using a walker for the past 2 years. Health aide is at her home 5 days a week. She has not been in contact with her pain management doctor or spine surgeon with her worsening pain symptoms. Review of records after evaluation MRI lumbar spine December 2023 for severe lumbar disease specially at L4-L5. Prior similar symptoms: Yes and With Prior Back Pain PFSH [facility] Medical History Low platelet count Anemia History of ESBL E. coli infection History of tobacco use IBS (irritable bowel syndrome) Acid reflux Port-A-Cath in place Encounter for infusaport central venous catheter removal residential current use of anticoagulant Chest pain History of cardiac arrest Chronic kidney disease Diverticulitis large intestine w/o perforation or abscess w/bleeding Abdominal ascites Pulmonary hypertension, secondary Acute hypotension History of COPD History of diabetes mellitus, type II Bradycardia Chest pain of uncertain etiology History of hypertension History of atrial fibrillation History of CHF (congestive heart failure) Peripheral edema Congestive heart failure Morbid obesity with BMI of 40.0-44.9, adult Pericardial effusion with cardiac tamponade Wears glasses Wears dentures Substance abuse Alcohol use Rash Gout High cholesterol PVD (peripheral vascular disease) Easy bruising Seizures Dietary restriction Gastric reflux Injury of back Vapes nicotine containing substance Fall History of pain when walking History of edema Insomnia Major depression On home oxygen therapy Emphysema, unspecified Neuropathy Cardiology follow-up encounter History of ulceration DKA (diabetic ketoacidosis) Cardiac arrest Lichen sclerosus Macular degeneration Essential hypertension Decreased left ventricular function Paroxysmal atrial fibrillation Diverticulosis Migraine Iron deficiency anemia COPD (chronic obstructive pulmonary disease) CHF (congestive heart failure) Neuropathy Kidney failure Hypothyroid Schizoaffective disorder, bipolar type Emphysema lung Diabetes Heart attack Home Medications ?Medication ?Instructions ?Recorded ?Last Taken ?Type apixaban 5 mg tablet (Eliquis) 5 mg PO BID blood thinner 12/24/22 07/27/23 History atorvastatin 20 mg tablet 20 mg PO DAILY cholesterol 12/24/22 07/27/23 History gabapentin 300 mg capsule 300 mg PO 4X/DAY nerve pain 12/25/22 07/27/23 History albuterol sulfate 90 mcg/actuation 1 inh inhalation PRN PRN shortness 12/31/22 Unknown History aerosol inhaler of breath or wheezing trazodone 100 mg tablet 100 mg PO QHS sleep 01/01/23 07/26/23 History aripiprazole 20 mg tablet 20 mg PO QHS mental health 03/09/23 07/26/23 History budesonide-formoterol HFA 80 2 inh inhalation BID breathing 04/27/23 07/27/23 History mcg-4.5 mcg/actuation aerosol inhaler (Symbicort) fluticasone propionate 50 1 spray intranasal DAILY PRN 04/27/23 Unknown History mcg/actuation nasal allergy symptoms spray,suspension divalproex 500 mg tablet,extended 500 mg PO DAILY seizure 07/25/23 07/27/23 History release 24 hr famotidine 20 mg tablet 20 mg PO DAILY acid reflux 07/25/23 07/27/23 History hydrocodone-acetaminophen 5-325mg 1 tab PO Q8H PRN pain 07/25/23 Unknown History 5mg-325mg levothyroxine 100 mcg tablet 100 mcg PO DAILY thyroid 07/25/23 07/27/23 History oxybutynin chloride 5 mg 5 mg PO DAILY bladder 07/25/23 07/27/23 History tablet,extended release 24 hr tiotropium bromide 2.5 2 inh inhalation QDAY breathing #1 08/27/23 Unknown Rx mcg/actuation mist for inhalation ea (Spiriva Respimat) insulin glargine 100 unit/mL (3 22 unit subcut DAILY diabetes 10/13/23 Unknown History mL) subcutaneous pen (Lantus Solostar U-100 Insulin) benazepril 5 mg tablet 5 mg PO QDAY blood pressure 12/24/23 Unknown History clotrimazole-betamethasone 1 1 applic topical BID skin 12/24/23 Unknown History %-0.05 % topical cream irritation diclofenac sodium 1 % topical gel 2 g topical ONCE 12/24/23 Unknown History empagliflozin 25 mg tablet 25 mg PO QAM diabetes 12/24/23 Unknown History (Jardiance) epinephrine 0.3 mg/0.3 mL 0.3 mg IM ONCE allergic reaction 12/24/23 Unknown History injection, auto-injector (EpiPen 2-Wayne) meloxicam 7.5 mg tablet 7.5 mg PO QDAY pain 12/24/23 Unknown History naloxegol 25 mg tablet (Movantik) 25 mg PO QAM constipation 12/24/23 Unknown History pantoprazole 40 mg tablet,delayed 40 mg PO QDAY acid reflux 12/24/23 Unknown History release furosemide 80 mg tablet 40 mg PO QDAY diuretic 01/06/24 Unknown History nystatin 100,000 unit/gram topical 1 applic topical BID skin 01/06/24 Unknown History powder irritation sucralfate 1 gram tablet 1 g PO QAC stomach 01/06/24 Unknown History tirzepatide 2.5 mg/0.5 mL 5 mg subcut QWEEK diabetes 01/06/24 Unknown History subcutaneous pen injector (Mounjaro) valbenazine 80 mg capsule 80 mg PO HS 01/06/24 Unknown History (Ingrezza) docusate sodium 100 mg capsule 100 mg PO BID #60 caps 02/09/24 Unknown Rx (Colace) Allergy/AdvReac Type Severity Reaction Status Date / Time aspirin Allergy Mild Hives Verified 02/09/24 10:57 erythromycin base Allergy Mild Hives Verified 02/09/24 10:57 Penicillins Allergy Mild Hives Verified 02/09/24 10:57 polyethylene glycol 3350 Allergy Mild Nausea/Vom/ Verified 02/09/24 10:57 (From Miralax) Diarrhea tramadol Allergy Mild Hives Verified 02/09/24 10:57 tomato Allergy Food Verified 02/09/24 10:57 Allergy Family History Mother Heart disease Hypertension Cancer Father Brain aneurysm age 40 CVA (cerebral vascular accident) Cancer Brother Colon cancer Surgical History History of bilateral knee replacement Hx of vein stripping Hx of toe surgery History of lithotripsy History of delivery History of bilateral cataract extraction History of cholecystectomy H/O: hysterectomy Social History (Updated 02/09/24 @ 11:54 by Annel Gomes) household members: caregiver Smoking Status: Current every day smoker tobacco type: cigarettes and e-cigarettes Tobacco: How many years used: 18 Electronic Cigarette Use: with nicotine second hand exposure: No alcohol intake: never substance use type: does not use caffeine: Yes ROS ROS ED Constitutional Constitutional ED: Denies chills, fever(s) or sweats Eyes Eyes: Denies change in vision ENT ENT ED: Denies dysphagia or sore throat Cardiovascular Cardiovascular: Denies chest pain, leg edema, palpitations or racing heartbeat Respiratory/Chest Respiratory/Chest: Denies cough, dyspnea or dyspnea on exertion Gastrointestinal Gastrointestinal: Denies abdominal pain, diarrhea, nausea or vomiting Genitourinary Genitourinary ED: Denies dysuria, hematuria or urinary frequency Musculoskeletal Musculoskeletal: Reports back pain; Denies extremity pain or neck pain Integumentary Denies rash or wounds Neurologic Neurologic: Denies headache(s), paresthesias or weakness EXAM Physical Exam Narrative Exam Narrative: Interventions / MDM: Differential diagnosis: Back pain, sciatica, spinal stenosis, constipation Diagnosis considered but do not suspect: No cauda equina symptoms. My EKG interpretation: N/A Imaging independently reviewed and interpreted by myself: N/A External documents reviewed: N/A Test considered but not ordered:N/A ED course: Patient worsening back pain history of spinal stenosis. No cauda equina symptoms. Will treat with IM morphine. With her concerns with constipation rule out, KUB ordered. She has no abdominal pain. Re-evaluation: stable Disposition discussed with patient/family/significant other: Case discussed with consulting clinician: N/A This note was generated with [employer] dictation software. It may contain incorrect words, spelling, and punctuation that were not noted in checking the note before signing. Const Vital Signs: 02/09/24 10:54 02/09/24 13:11 Temperature 97.4 F L 97.4 F L Temperature Source Temporal Pulse Rate 59 L 61 Respiratory Rate 22 H 20 H Blood Pressure 143/93 H 139/88 H Blood Pressure Mean 109 105 Pulse Ox 96 96 Oxygen Delivery Method Room Air MDM MDM MDM Narrative Medical decision making narrative: Interventions / MDM: Differential diagnosis: Sciatica, lumbar stenosis Diagnosis considered but do not suspect: No cauda equina symptoms. My EKG interpretation: N/A Imaging independently reviewed and interpreted by myself: KUB: No acute process also read by radiology. External documents reviewed: MRI lumbar spine December 2023 with severe lumbar disease or L4-L5. Test considered but not ordered:N/A ED course: Patient with no cauda equina symptoms. Chronic radicular pain. Ambulates a walker. She is on tabs of hydrocodone per her pain management doctor. She was IM morphine. KUB ordered for concerns of constipation. 1255: Evaluation pain more improved she did have pain with walking it was chronic for the patient. She is on gabapentin. KUB negative for any impaction. I did reach out to her pain doctor, Dr. Sarmiento, discussed her upcoming plans for surgeries and increasing pain. He cleared her to go up to 1 full tab of her hydrocodone every 3 hours. Patient will call to follow-up with him for continued management in preparation for surgery. She will call discussed with her spine surgeon also for evaluation and preparation for her surgery. Since she is able to ambulate, there is no weakness, I do not feel emergent hospitalization is required at this time. I will also place her on stool softeners as she is on chronic pain medicines. All questions were answered. Re-evaluation: stable Disposition discussed with patient/family/significant other: Patient Case discussed with consulting clinician: Pain management This note was generated with [employer] dictation software. It may contain incorrect words, spelling, and punctuation that were not noted in checking the note before signing. Radiography Diagnostic Testing: Clinical Impression(s) from Imaging Studies KUB X-Ray 02/09/24 11:33 IMPRESSION: No acute abnormalities Electronically Signed: Richard Lucio MD at 12:32 EST Reading Location ID and State: [address] [place] [address] , Service support , Discharge Plan Triage Chief Complaint: Back ED Provider: Le,Micky Dx/Rx/DC Orders Clinical Impression: Spinal stenosis at L4-L5 level, Degenerative disc disease Instructions: ED Sciatica Prescriptions: New docusate sodium [Colace] 100 mg capsule 100 mg PO BID Qty: 60 0RF No Action atorvastatin 20 mg tablet 20 mg PO DAILY Eliquis 5 mg tablet 5 mg PO BID gabapentin 300 mg capsule 300 mg PO 4X/DAY fluticasone propionate 50 mcg/actuation spray,suspension 1 spray intranasal DAILY PRN (Reason: allergy symptoms) Patient Comments: instill 2 sprays in each nostril daily budesonide-formoterol [Symbicort] 80-4.5 mcg/actuation HFA aerosol inhaler 2 inh inhalation BID Patient Comments: INHALE TWO PUFFS BY MOUTH TWICE DAILY. RINSE MOUTH AFTER USE Spiriva Respimat 2.5 mcg/actuation mist 2 inh inhalation QDAY Qty: 1 6RF Rx Instructions: administer at approximately the same time(s) each day nystatin 100,000 unit/gram powder 1 applic topical BID furosemide 80 mg tablet 40 mg PO QDAY sucralfate 1 gram tablet 1 g PO QAC benazepril 5 mg tablet 5 mg PO QDAY clotrimazole-betamethasone 1-0.05 % cream 1 applic topical BID epinephrine [EpiPen 2-Wayne] 0.3 mg/0.3 mL auto-injector 0.3 mg IM ONCE Rx Instructions: as a single dose; may repeat once meloxicam 7.5 mg tablet 7.5 mg PO QDAY Jardiance 25 mg tablet 25 mg PO QAM Movantik 25 mg tablet 25 mg PO QAM Rx Instructions: must be taken on empty stomach; no food 1 hr after or 2-3 hrs before dose diclofenac sodium 1 % gel 2 g topical ONCE Rx Instructions: apply to single elbow, wrist or hand; for hand includes palm/fingers/back of hand pantoprazole 40 mg tablet,delayed release (DR/EC) 40 mg PO QDAY Ingrezza 80 mg capsule 80 mg PO HS albuterol sulfate 90 mcg/actuation HFA aerosol inhaler 1 inh INHALATION PRN PRN (Reason: shortness of breath or wheezing) trazodone 100 mg tablet 100 mg PO QHS Patient Comments: TAKE 1 TABLET BY MOUTH EVERY DAY AT NIGHT aripiprazole 20 mg tablet 20 mg PO QHS Patient Comments: TAKE ONE TABLET BY MOUTH DAILY AT 9AM hydrocodone-acetaminophen 5-325 mg tablet 1 tab PO Q8H PRN (Reason: pain) famotidine 20 mg tablet 20 mg PO DAILY divalproex 500 mg tablet extended release 24 hr 500 mg PO DAILY levothyroxine 100 mcg tablet 100 mcg PO DAILY oxybutynin chloride 5 mg tablet extended release 24hr 5 mg PO DAILY insulin glargine [Lantus Solostar U-100 Insulin] 100 unit/mL (3 mL) insulin pen 22 unit subcut DAILY Mounjaro 2.5 mg/0.5 mL pen injector 5 mg subcut QWEEK Primary Care Provider: Eric Marion Referrals: Catrachita Sarmiento MD [Med Staff - Active Staff] - 1 Week Oziel Gardner MD [Med Staff - Active Staff] - 1 Week Eric Marion, [employer] [Primary Care Provider] - Activity Restrictions/Additional Instructions: You have been cleared to do go up to 1 full tablet of hydrocodone every [address] Sarmiento. Follow-up with him for continued adjustments of pain medicines. Follow-up with Dr. Gardner your spine doctor in preparations for your surgery. Print Language: Estonian Disposition Disposition: Home, Self Care Discharge Date/Time: 02/09/24 13:12
[2024-02-09] MEDS: Morphine 4 MG/ML Syringe IM (11:40)
[2024-02-09 13:11] VITALS: BP 139/88; PULSE 61; RESP 20; TEMP 36.3; O2SAT 96
== END 2024-02-09 13:12 | disposition home or self-care (01) ==
PROVIDERS: Emergency Provider Emergency Medicine; PCP Nurse Practitioner Family; Visit Provider Emergency Medicine
DX: I13.0 Hypertensive heart and chronic kidney disease with heart failure and stage 1 through stage 4 chronic kidney disease, or unspecified chronic kidney disease (principal); I50.9 Heart failure, unspecified; J43.9 Emphysema, unspecified; E11.40 Type 2 diabetes mellitus with diabetic neuropathy, unspecified; E11.22 Type 2 diabetes mellitus with diabetic chronic kidney disease; M54.10 Radiculopathy, site unspecified; E78.00 Pure hypercholesterolemia, unspecified; M48.061 Spinal stenosis, lumbar region without neurogenic claudication; N18.9 Chronic kidney disease, unspecified; F17.210 Nicotine dependence, cigarettes, uncomplicated; K21.9 Gastro-esophageal reflux disease without esophagitis; F17.290 Nicotine dependence, other tobacco product, uncomplicated
CPT/HCPCS: 96372; 74018; 99282

== ENCOUNTER 2024-03-03 09:26 | Emergency (ER) | payer MEDICAID, MEDICARE, SELFPAY ==
[2024-03-03 09:26] VITALS: BP 118/66; PULSE 67; RESP 18; O2SAT 95
[2024-03-03 09:27] VITALS: TEMP 36.5; BMI 36.1
--- NOTE | 2024-03-03 09:34 | ED.RN ---
SURGERY PLANNED TO BE DONE ON MAR 20 FOR L4-L5 PER PT. PT BROUGHT IN BY EMS STATING THE PAIN HAS BECOME SEVERE 12/15. PT IS VISIBLY RESTLESS. DENIES ANY LOSS OF BOWEL OR URINARY FUNCTION. DENIES ANY LOSS OF SENSATION IN THE LOWER EXTREMITIES
--- NOTE | 2024-03-03 10:11 | EDS_ITS ---
HPI History of Present Illness Chief Complaint: Back Informant: patient Narrative Narrative: 63-year-old female presenting to the emergency room with acute on chronic back pain. Patient has a history of spinal stenosis sees pain management with Dr. Sarmiento and is supposed to be having surgery with Dr. Gardner in March. She states that during the night she had an increase in her back pain and cannot get comfortable. She states that her current pain management therapy is buprenorphine patches. She states she was told to come to emergency if she is not handling her pain. She denies any new neurologic symptoms such as loss of sensation bowel or bladder control or weakness. She denies any fevers or any other trauma. She is anticoagulated on Eliquis. Patient also notes that she has been constipated not having a bowel movement for the past couple days. She states that she takes a daily stool softener but it has not been effective. She also tried a dose of milk of magnesia. She is having some flatus no vomiting. She notes pain radiating to her legs Per Dr. Sarmiento's front office manager records indicate that she was taking hydrocodone but it was not lasting long enough and so they switched her to the patches at the end of last month. [facility] Medical History Low platelet count Anemia History of ESBL E. coli infection History of tobacco use IBS (irritable bowel syndrome) Acid reflux Port-A-Cath in place Encounter for infusaport central venous catheter removal nursing home current use of anticoagulant Chest pain History of cardiac arrest Chronic kidney disease Diverticulitis large intestine w/o perforation or abscess w/bleeding Abdominal ascites Pulmonary hypertension, secondary Acute hypotension History of COPD History of diabetes mellitus, type II Bradycardia Chest pain of uncertain etiology History of hypertension History of atrial fibrillation History of CHF (congestive heart failure) Peripheral edema Congestive heart failure Morbid obesity with BMI of 40.0-44.9, adult Pericardial effusion with cardiac tamponade Wears glasses Wears dentures Substance abuse Alcohol use Rash Gout High cholesterol PVD (peripheral vascular disease) Easy bruising Seizures Dietary restriction Gastric reflux Injury of back Vapes nicotine containing substance Fall History of pain when walking History of edema Insomnia Major depression On home oxygen therapy Emphysema, unspecified Neuropathy Cardiology follow-up encounter History of ulceration DKA (diabetic ketoacidosis) Cardiac arrest Lichen sclerosus Macular degeneration Essential hypertension Decreased left ventricular function Paroxysmal atrial fibrillation Diverticulosis Migraine Iron deficiency anemia COPD (chronic obstructive pulmonary disease) CHF (congestive heart failure) Neuropathy Kidney failure Hypothyroid Schizoaffective disorder, bipolar type Emphysema lung Diabetes Heart attack Home Medications ?Medication ?Instructions ?Recorded ?Last Taken ?Type apixaban 5 mg tablet (Eliquis) 5 mg PO BID blood thinner 12/24/22 07/27/23 History atorvastatin 20 mg tablet 20 mg PO DAILY cholesterol 12/24/22 07/27/23 History gabapentin 300 mg capsule 300 mg PO 4X/DAY nerve pain 12/25/22 07/27/23 History albuterol sulfate 90 mcg/actuation 1 inh inhalation PRN PRN shortness 12/31/22 Unknown History aerosol inhaler of breath or wheezing trazodone 100 mg tablet 100 mg PO QHS sleep 01/01/23 07/26/23 History aripiprazole 20 mg tablet 20 mg PO QHS mental health 03/09/23 07/26/23 History budesonide-formoterol HFA 80 2 inh inhalation BID breathing 04/27/23 07/27/23 History mcg-4.5 mcg/actuation aerosol inhaler (Symbicort) fluticasone propionate 50 1 spray intranasal DAILY PRN 04/27/23 Unknown History mcg/actuation nasal allergy symptoms spray,suspension divalproex 500 mg tablet,extended 500 mg PO DAILY seizure 07/25/23 07/27/23 History release 24 hr famotidine 20 mg tablet 20 mg PO DAILY acid reflux 07/25/23 07/27/23 History hydrocodone-acetaminophen 5-325mg 1 tab PO Q8H PRN pain 07/25/23 Unknown History 5mg-325mg levothyroxine 100 mcg tablet 100 mcg PO DAILY thyroid 07/25/23 07/27/23 History oxybutynin chloride 5 mg 5 mg PO DAILY bladder 07/25/23 07/27/23 History tablet,extended release 24 hr tiotropium bromide 2.5 2 inh inhalation QDAY breathing #1 08/27/23 Unknown Rx mcg/actuation mist for inhalation ea (Spiriva Respimat) insulin glargine 100 unit/mL (3 22 unit subcut DAILY diabetes 10/13/23 Unknown History mL) subcutaneous pen (Lantus Solostar U-100 Insulin) benazepril 5 mg tablet 5 mg PO QDAY blood pressure 12/24/23 Unknown History clotrimazole-betamethasone 1 1 applic topical BID skin 12/24/23 Unknown History %-0.05 % topical cream irritation diclofenac sodium 1 % topical gel 2 g topical ONCE 12/24/23 Unknown History empagliflozin 25 mg tablet 25 mg PO QAM diabetes 12/24/23 Unknown History (Jardiance) epinephrine 0.3 mg/0.3 mL 0.3 mg IM ONCE allergic reaction 12/24/23 Unknown History injection, auto-injector (EpiPen 2-Wayne) meloxicam 7.5 mg tablet 7.5 mg PO QDAY pain 12/24/23 Unknown History naloxegol 25 mg tablet (Movantik) 25 mg PO QAM constipation 12/24/23 Unknown History pantoprazole 40 mg tablet,delayed 40 mg PO QDAY acid reflux 12/24/23 Unknown History release furosemide 80 mg tablet 40 mg PO QDAY diuretic 01/06/24 Unknown History nystatin 100,000 unit/gram topical 1 applic topical BID skin 01/06/24 Unknown History powder irritation sucralfate 1 gram tablet 1 g PO QAC stomach 01/06/24 Unknown History tirzepatide 2.5 mg/0.5 mL 5 mg subcut QWEEK diabetes 01/06/24 Unknown History subcutaneous pen injector (Joseph) valbenazine 80 mg capsule 80 mg PO HS 01/06/24 Unknown History (Ingrezza) docusate sodium 100 mg capsule 100 mg PO BID #60 caps 02/09/24 Unknown Rx (Colace) Allergy/AdvReac Type Severity Reaction Status Date / Time aspirin Allergy Mild Hives Verified 02/21/24 10:06 erythromycin base Allergy Mild Hives Verified 02/21/24 10:06 Penicillins Allergy Mild Hives Verified 02/21/24 10:06 polyethylene glycol 3350 Allergy Mild Nausea/Vom/ Verified 02/21/24 10:06 (From Miralax) Diarrhea tramadol Allergy Mild Hives Verified 02/21/24 10:06 tomato Allergy Food Verified 02/21/24 10:06 Allergy Family History Mother Heart disease Hypertension Cancer Father Brain aneurysm age 40 CVA (cerebral vascular accident) Cancer Brother Colon cancer Surgical History History of bilateral knee replacement Hx of vein stripping Hx of toe surgery History of lithotripsy History of delivery History of bilateral cataract extraction History of cholecystectomy H/O: hysterectomy Social History household members: caregiver Smoking Status: Current every day smoker tobacco type: cigarettes and e-cigar ettes Tobacco: How many years used: 18 Electronic Cigarette Use: with nicotine second hand exposure: No alcohol intake: never substance use type: does not use caffeine: Yes EXAM Physical Exam Const Vital Signs: 03/03/24 09:26 03/03/24 09:27 Temperature 97.7 F L Temperature Source Oral Pulse Rate 67 Respiratory Rate 18 Blood Pressure 118/66 Blood Pressure Mean 83 Pulse Ox 95 Oxygen Delivery Method Room Air Positive well nourished, well developed and obese General Appearance ED: well developed and NAD Nutritional Appearance: obese HEENT Reports normocephalic, head/scalp atraumatic and moist mucous membranes Eyes PERRL and EOMs intact bilaterally Neck no lymphadenopathy, supple and no JVD Resp normal respiratory effort and clear to auscultation bilaterally Cardio regular rate, regular rhythm and no murmurs GI normal to inspection, nondistended, normoactive bowel sounds and non-tender Palpation: soft Back/Spine no CVA tenderness Back/Spine Narrative: painful ROM. no TTC to suggest infection or hematoma. Extremity normal to inspection General Extremety ED: Negative for edema General Extremity: Negative for edema Neuro oriented x3, CN's II-XII intact bilaterally and no sensory deficits noted Sensorium / Orientation: alert Motor Exam: strength 5/5 throughout Deep Tendon Reflexes: Rt Patellar (L4): 2+, Lt Patellar (L4): 2+, Rt Ankle (S1): 2+ and Lt Ankle (S1): 2+ Deep Tendon Reflexes Back: Rt Patellar (L4): 2+, Lt Patellar (L4): 2+, Rt Ankle (S1): 2+ and Lt Ankle (S1): 2+ Psych mental status grossly normal Mood & Affect: tearful; Negative for depressed Skin no rashes or lesions noted and no wounds MDM MDM MDM Narrative Medical decision making narrative: Differential diagnosis includes but not limited to acute on chronic pain spinal stenosis progression epidural hematoma and factious causes like abscess cauda equina syndrome volvulus bowel obstruction constipation Patient states that she is deathly allergic to MiraLAX. She states that she is allergic to magnesium citrate. She states that she is not allergic to apple juice or prunes and wonders if that may help her constipation. I explained to the patient that because she is on narcotics she is going to chronically be constipated and that her reported allergies are not allergies but side effects. She tells me that when she took magnesium citrate in the past she had a large bowel movement that made her throw up and pass out. I informed her that no matter what she does when she is constipated her first bowel movement will probably be bulky and could cause her to have the symptoms but is not a true allergy but she does not wish to take anything like that for her constipation. She would like to stick with natural remedies. I spoke with her pain management doctor who recommends that she take Isom with her patch. She does not have any of this at home. He can see her on the third and I will write for some Isom. Patient understands this plan will make appointment at this point I do not see acute neurologic heart physical findings to suggest that we need to order advanced imaging. Patient is with a caregiver at the current time and they noted understanding of plan History & Record Review Discussion w/independent historian: Patient Discharge Plan Triage Chief Complaint: Back ED Provider: Neil Leal Dx/Rx/DC Orders Prescriptions: No Action atorvastatin 20 mg tablet 20 mg PO DAILY Eliquis 5 mg tablet 5 mg PO BID gabapentin 300 mg capsule 300 mg PO 4X/DAY fluticasone propionate 50 mcg/actuation spray,suspension 1 spray intranasal DAILY PRN (Reason: allergy symptoms) Patient Comments: instill 2 sprays in each nostril daily budesonide-formoterol [Symbicort] 80-4.5 mcg/actuation HFA aerosol inhaler 2 inh inhalation BID Patient Comments: INHALE TWO PUFFS BY MOUTH TWICE DAILY. RINSE MOUTH AFTER USE Spiriva Respimat 2.5 mcg/actuation mist 2 inh inhalation QDAY Qty: 1 6RF Rx Instructions: administer at approximately the same time(s) each day nystatin 100,000 unit/gram powder 1 applic topical BID furosemide 80 mg tablet 40 mg PO QDAY sucralfate 1 gram tablet 1 g PO QAC benazepril 5 mg tablet 5 mg PO QDAY clotrimazole-betamethasone 1-0.05 % cream 1 applic topical BID epinephrine [EpiPen 2-Wayne] 0.3 mg/0.3 mL auto-injector 0.3 mg IM ONCE Rx Instructions: as a single dose; may repeat once meloxicam 7.5 mg tablet 7.5 mg PO QDAY Jardiance 25 mg tablet 25 mg PO QAM Movantik 25 mg tablet 25 mg PO QAM Rx Instructions: must be taken on empty stomach; no food 1 hr after or 2-3 hrs before dose diclofenac sodium 1 % gel 2 g topical ONCE Rx Instructions: apply to single elbow, wrist or hand; for hand includes palm/fingers/back of hand pantoprazole 40 mg tablet,delayed release (DR/EC) 40 mg PO QDAY Ingrezza 80 mg capsule 80 mg PO HS albuterol sulfate 90 mcg/actuation HFA aerosol inhaler 1 inh INHALATION PRN PRN (Reason: shortness of breath or wheezing) trazodone 100 mg tablet 100 mg PO QHS Patient Comments: TAKE 1 TABLET BY MOUTH EVERY DAY AT NIGHT aripiprazole 20 mg tablet 20 mg PO QHS Patient Comments: TAKE ONE TABLET BY MOUTH DAILY AT 9AM hydrocodone-acetaminophen 5-325 mg tablet 1 tab PO Q8H PRN (Reason: pain) famotidine 20 mg tablet 20 mg PO DAILY divalproex 500 mg tablet extended release 24 hr 500 mg PO DAILY levothyroxine 100 mcg tablet 100 mcg PO DAILY oxybutynin chloride 5 mg tablet extended release 24hr 5 mg PO DAILY insulin glargine [Lantus Solostar U-100 Insulin] 100 unit/mL (3 mL) insulin pen 22 unit subcut DAILY Mounjaro 2.5 mg/0.5 mL pen injector 5 mg subcut QWEEK docusate sodium [Colace] 100 mg capsule 100 mg PO BID Qty: 60 0RF Primary Care Provider: Eric Marion Referrals: Eric Marion, CLOTH DESIGNER-C [Primary Care Provider] - Print Language: Swedish
[2024-03-03] MEDS: morphine 10 MG/ML Syringe IM (10:17)
== END 2024-03-03 11:18 | disposition home or self-care (01) ==
PROVIDERS: Emergency Provider Emergency Medicine; PCP Nurse Practitioner Family; Visit Provider Emergency Medicine
DX: M54.9 Dorsalgia, unspecified (principal); I13.0 Hypertensive heart and chronic kidney disease with heart failure and stage 1 through stage 4 chronic kidney disease, or unspecified chronic kidney disease; I50.9 Heart failure, unspecified; J43.9 Emphysema, unspecified; E11.40 Type 2 diabetes mellitus with diabetic neuropathy, unspecified; E11.22 Type 2 diabetes mellitus with diabetic chronic kidney disease; Z79.891 Long term (current) use of opiate analgesic; G89.29 Other chronic pain; E78.00 Pure hypercholesterolemia, unspecified; F17.210 Nicotine dependence, cigarettes, uncomplicated; Z79.01 Long term (current) use of anticoagulants; K21.9 Gastro-esophageal reflux disease without esophagitis; N18.9 Chronic kidney disease, unspecified; F17.290 Nicotine dependence, other tobacco product, uncomplicated; E66.9 Obesity, unspecified; K59.00 Constipation, unspecified
CPT/HCPCS: 96372; 99283

== ENCOUNTER 2024-03-15 23:55 | Emergency (ER) | payer MEDICARE, MEDICAID, SELFPAY ==
[2024-03-15 23:56] VITALS: BP 134/94; PULSE 66; RESP 16; TEMP 36.4; O2SAT 94; BMI 38.9
--- NOTE | 2024-03-16 00:11 | RAD_ITS ---
INDICATION: PAIN EXAMINATION/TECHNIQUE: X-RAY - RIGHT XR Shoulder Min 2 Views COMPARISON: None. FINDINGS: SOFT TISSUES: Unremarkable. BONES/JOINTS: No fracture or dislocation. Mild degenerative changes of the acromioclavicular joint and glenohumeral joint. No erosive changes. RAD/Shoulder min 2 Views IMPRESSION: No fracture or dislocation. Electronically Signed: Sven Begum DO at 1:32 EST ,
--- NOTE | 2024-03-16 00:11 | RAD_ITS ---
INDICATION: pain EXAMINATION/TECHNIQUE: X-RAY - LEFT XR Shoulder Min 2 Views COMPARISON: None. FINDINGS: SOFT TISSUES: Unremarkable. BONES/JOINTS: No fracture or dislocation. Moderate degenerative changes of the acromioclavicular joint. No erosive changes. RAD/Shoulder min 2 Views IMPRESSION: No fracture or dislocation. Electronically Signed: Sven Begum DO at 1:31 EST ,
[2024-03-16] MEDS: Ketorolac 30 MG/ML Syringe IM (00:18)
[2024-03-16] MEDS: Orphenadrine 60 MG/2 ML Ampul IM (00:18)
--- NOTE | 2024-03-16 00:30 | RAD_ITS ---
INDICATION: pain EXAMINATION/TECHNIQUE: X-RAY - LEFT XR Elbow Min 3 Views COMPARISON: None. FINDINGS: SOFT TISSUES: Calcifications at the medial epicondyle which may represent chronic epicondylitis. No evidence of an effusion. BONES/JOINTS: No fracture or dislocation. No significant degenerative changes. No erosive changes. RAD/Elbow min 3 Views IMPRESSION: No fracture or dislocation. Electronically Signed: Sven Begum DO at 1:30 EST ,
--- NOTE | 2024-03-16 01:56 | EX.ED.UPPERE ---
HPI History of Present Illness Chief Complaint: Upper Extremity Injury Informant: patient and EMS Narrative Narrative: Patient is a 63-year-old female with past medical history of anxiety depression hypertension COPD and chronic pain on buprenorphine patches. She states that she was in her bathroom roughly 1 week ago when she lost her balance and fell between the shower and the toilet landing on her left shoulder. She denies striking her head or any loss of consciousness. She states she was able to get back up and she has been able to care for herself at home but has noticed persistent pain in the left and right shoulder that she feels is not responding to her chronic home pain medication. She denies any repeat trauma but tonight states that she could not sleep secondary to the persistent pain and therefore came to the hospital for evaluation [facility] Medical History (Updated 03/16/24 @ 05:[address] Erich Fleming, ) Wears hearing aid Post-menopausal Depression Anxiety History of steroid therapy Walker as ambulation aid Kidney stones Arthritis Back pain History of IBS Former smoker COPD (chronic obstructive pulmonary disease) Shortness of breath on exertion Thyroid disease History of heart attack History of stress test History of echocardiogram Low platelet count Anemia History of ESBL E. coli infection Morbid obesity with BMI of 40.0-44.9, adult Congestive heart failure Peripheral edema History of CHF (congestive heart failure) History of atrial fibrillation History of hypertension Chest pain of uncertain etiology Bradycardia History of tobacco use History of diabetes mellitus, type II History of COPD Acute hypotension Pulmonary hypertension, secondary Abdominal ascites Diverticulitis large intestine w/o perforation or abscess w/bleeding Pericardial effusion with cardiac tamponade Chronic kidney disease History of cardiac arrest Chest pain Wears glasses Wears dentures Substance abuse Alcohol use Rash Gout High cholesterol PVD (peripheral vascular disease) Easy bruising Seizures Dietary restriction Gastric reflux Injury of back Vapes nicotine containing substance Fall History of pain when walking History of edema Insomnia Major depression On home oxygen therapy Emphysema, unspecified Neuropathy Cardiology follow-up encounter History of ulceration DKA (diabetic ketoacidosis) Cardiac arrest penitentiary current use of anticoagulant Encounter for infusaport central venous catheter removal Lichen sclerosus Macular degeneration Essential hypertension Decreased left ventricular function Paroxysmal atrial fibrillation Diverticulosis Migraine Iron deficiency anemia COPD (chronic obstructive pulmonary disease) Port-A-Cath in place Acid reflux IBS (irritable bowel syndrome) CHF (congestive heart failure) Neuropathy Kidney failure Hypothyroid Schizoaffective disorder, bipolar type Emphysema lung Diabetes Heart attack Home Medications ?Medication ?Instructions ?Recorded ?Last Taken ?Type apixaban 5 mg tablet (Eliquis) 5 mg PO BID blood thinner 12/24/22 07/27/23 History atorvastatin 20 mg tablet 20 mg PO DAILY cholesterol 12/24/22 07/27/23 History gabapentin 300 mg capsule 300 mg PO TID nerve pain 12/25/22 07/27/23 History albuterol sulfate 90 mcg/actuation 1 inh inhalation PRN PRN shortness 12/31/22 Unknown History aerosol inhaler of breath or wheezing trazodone 100 mg tablet 100 mg PO QHS sleep 01/01/23 07/26/23 History aripiprazole 20 mg tablet 20 mg PO DAILY mental health 03/09/23 07/26/23 History budesonide-formoterol HFA 80 2 inh inhalation BID breathing 04/27/23 07/27/23 History mcg-4.5 mcg/actuation aerosol inhaler (Symbicort) fluticasone propionate 50 1 spray intranasal DAILY PRN 04/27/23 Unknown History mcg/actuation nasal allergy symptoms spray,suspension divalproex 500 mg tablet,extended 500 mg PO QHS seizure 07/25/23 07/27/23 History release 24 hr levothyroxine 100 mcg tablet 100 mcg PO DAILY thyroid 07/25/23 07/27/23 History oxybutynin chloride 5 mg 5 mg PO DAILY bladder 07/25/23 07/27/23 History tablet,extended release 24 hr insulin glargine 100 unit/mL (3 20 unit subcut DAILY diabetes 10/13/23 Unknown History mL) subcutaneous pen (Lantus Solostar U-100 Insulin) clotrimazole-betamethasone 1 1 applic topical BID skin 12/24/23 Unknown History %-0.05 % topical cream irritation diclofenac sodium 1 % topical gel 2 g topical ONCE 12/24/23 Unknown History empagliflozin 25 mg tablet 25 mg PO QAM diabetes 12/24/23 Unknown History (Jardiance) epinephrine 0.3 mg/0.3 mL 0.3 mg IM ONCE allergic reaction 12/24/23 Unknown History injection, auto-injector (EpiPen 2-Wayne) meloxicam 7.5 mg tablet 7.5 mg PO QDAY pain 12/24/23 Unknown History pantoprazole 40 mg tablet,delayed 40 mg PO QDAY acid reflux 12/24/23 Unknown History release nystatin 100,000 unit/gram topical 1 applic topical BID skin 01/06/24 Unknown History powder irritation valbenazine 80 mg capsule 80 mg PO HS 01/06/24 Unknown History (Ingrezza) acetaminophen 500 mg capsule 500 mg PO Q6H PRN pain 03/07/24 Unknown History buprenorphine 10 mcg/hour weekly 1 patch topical QWEEK 03/07/24 Unknown History transdermal patch docusate sodium 100 mg capsule 100 mg PO BID PRN constipation 03/07/24 Unknown History (Colace) furosemide 20 mg tablet 20 mg PO DAILY 03/07/24 Unknown History nicotine 1 patch topical DAILY 03/07/24 Unknown History 21mg/24hr-14mg/24hr-7mg/24hr daily transderm patches,sequentl tirzepatide 5 mg/0.5 mL 5 mg subcut QWEEK 03/07/24 Unknown History subcutaneous pen injector (Joseph) tobramycin 0.3 %-dexamethasone 1 drp ophthalmic (eye) .Q4-6H 03/07/24 Unknown History 0.05 % eye drops,suspension (Tobradex ST) linaclotide 145 mcg capsule 145 mcg PO QAM #60 caps 03/10/24 Unknown Rx (Linzess) sodium sul 1.479 gram-potas ch See Rx Instructions PO PER PKG DIR 03/10/24 Unknown Rx 0.188 gram-magnes sul 0.225 gram #24 tabs tablet (Sutab) methocarbamol 500 mg tablet 500 mg PO 4X/DAY PRN Muscle 03/16/24 Unknown Rx pain/spasm #40 tabs Allergy/AdvReac Type Severity Reaction Status Date / Time aspirin Allergy Mild Hives Verified 03/15/24 23:56 erythromycin base Allergy Mild Hives Verified 03/15/24 23:56 Penicillins Allergy Mild Hives Verified 03/15/24 23:56 polyethylene glycol 3350 Allergy Mild Nausea/Vom/ Verified 03/15/24 23:56 (From Miralax) Diarrhea tramadol Allergy Mild Hives Verified 03/15/24 23:56 tomato Allergy Food Verified 03/15/24 23:56 Allergy Family History Mother Heart disease Hypertension Cancer Father Brain aneurysm age 40 CVA (cerebral vascular accident) Cancer Brother Colon cancer Surgical History Hx of surgical procedure History of bilateral knee replacement Hx of vein stripping Hx of toe surgery History of lithotripsy History of delivery History of bilateral cataract extraction History of cholecystectomy H/O: hysterectomy Social History household members: caregiver Smoking Status: Former smoker Tobacco: How many years used: 18 Electronic Cigarette Use: with nicotine second hand exposure: No alcohol intake: never substance use type: does not use caffeine: Yes ROS ROS ED Constitutional Constitutional ED: Denies chills or fever(s) Eyes Eyes: Denies blurry vision or change in vision ENT ENT ED: Denies sore throat Cardiovascular Cardiovascular: Reports other Details: Negative syncope ; Denies chest pain Respiratory/Chest Respiratory/Chest: Denies cough or dyspnea Gastrointestinal Gastrointestinal: Denies abdominal pain, diarrhea, nausea or vomiting Genitourinary Genitourinary ED: Denies dysuria Musculoskeletal Musculoskeletal: Reports other Details: Positive bilateral shoulder pain ; Denies neck pain Integumentary Reports Abrasions and other Details: Positive ration/ecchymosis left elbow ; Denies rash Neurologic Neurologic: Denies headache(s), paresthesias or weakness Hematologic/Lymphatic Hematologic/Lymphatic: Reports easy bleeding and easy bruising EXAM Physical Exam Const Vital Signs: 03/15/24 23:56 Temperature 97.6 F L Temperature Source Oral Pulse Rate 66 Respiratory Rate 16 Blood Pressure 134/94 H Blood Pressure Mean 107 Pulse Ox 94 Positive well nourished, well developed and obese General Appearance ED: well developed Nutritional Appearance: obese HEENT HEENT Narrative: Normocephalic atraumatic Eyes PERRL and EOMs intact bilaterally Neck full ROM and supple Neck Narrative: No bony deformity or step-off of the cervical spine no midline tenderness to palpation Chest Wall palpation of chest normal Chest Narrative: No bony deformity or crepitance no subcutaneous emphysema Resp normal respiratory effort Resp Narrative: Breath sounds are diminished throughout with faint expiratory wheeze in the bilateral bases consistent with history of COPD but no signs of respiratory distress Cardio regular rate and regular rhythm GI non-tender, non-distended and no masses Auscultation: normoactive bowel sounds Palpation: soft Back/Spine Back/Spine Narrative: No bony deformity or step-off of the thoracic or lumbar spine no midline tenderness to palpation Extremity Extremity Narrative: Bilateral upper extremities are neurovascularly intact. There is no obvious bony deformity or joint effusion and negative sulcus sign bilaterally. Active range of motion is decreased secondary to pain but there is full passive range of motion. Patient also has mild soft tissue swelling ecchymosis near the left elbow without joint effusion or bony deformity. Pelvis is stable there is no shortening or external rotation of either lower extremity All compartments are soft and compressible going against compartment syndrome Neuro oriented x3, CN's II-XII intact bilaterally, moves all extremities, no focal motor deficits and no sensory deficits noted Sensorium / Orientation: alert Psych mental status grossly normal Skin Skin Narrative: Soft tissue swelling with ecchymosis along the left distal humerus/elbow region MDM MDM MDM Narrative Medical decision making narrative: Patient arrived to the ER with stable vitals and reported a mechanical fall roughly 1 week ago. As she denied palpitations or syncope I felt no need for cardiac workup. Chart review states she is on Eliquis but the patient adamantly denies she is on a blood thinner and does not want a head CT obtained. As the patient is awake alert and oriented I will comply with her wishes and not perform a head CT. However as she does have concern for potential fracture of her elbow or shoulders I did elect to perform x-rays as requested. X-rays revealed no fracture or joint dislocation or joint effusion. This correlates with her physical exam. After receiving Toradol and Norflex the patient had resolution of her pain. At this time as patient's fall is 1 week out she denied it was secondary to syncope or cardiac dysrhythmia and has stable vitals at this time I do not feel the need to perform a further workup. As she denies striking her head or any loss of consciousness and is adamant she is not taking a blood thinner and does not want a head CT I will forego this imaging to check for potential subarachnoid or subdural hemorrhage. As she is on chronic pain medication I will only provide muscle relaxers for home but as remainder of the exam is negative she is otherwise safe for discharge History & Record Review Discussion w/independent historian: Patient Radiography Diagnostic Testing: Clinical Impression(s) from Imaging Studies Shoulder X-Ray 03/16/24 00:11 IMPRESSION: No fracture or dislocation. Electronically Signed: Sven Begum DO at 1:31 EST , Shoulder X-Ray 03/16/24 00:11 IMPRESSION: No fracture or dislocation. Electronically Signed: Sven Begum DO at 1:32 EST , Elbow X-Ray 03/16/24 00:30 IMPRESSION: No fracture or dislocation. Electronically Signed: Sven Begum DO at 1:30 EST , X-ray of the right and left shoulder as interpreted by the emergency medicine physician reveals no acute fracture dislocation or joint effusion Left elbow x-ray as interpreted by the emergency medicine physician reveals no acute fracture dislocation or joint effusion Discharge Plan Triage Chief Complaint: Upper Extremity Injury ED Provider: Erich Fleming Dx/Rx/DC Orders Clinical Impression: Shoulder contusion, Contusion of left elbow, Essential hypertension, COPD (chronic obstructive pulmonary disease), Diabetes Instructions: Bone Contusion, ED Shoulder Bruise Prescriptions: New methocarbamol 500 mg tablet 500 mg PO 4X/DAY PRN (Reason: Muscle pain/spasm) Qty: 40 0RF No Action atorvastatin 20 mg tablet 20 mg PO DAILY Eliquis 5 mg tablet 5 mg PO BID Patient Comments: STOP 2-3 DAYS PRIOR TO SURGERY gabapentin 300 mg capsule 300 mg PO TID fluticasone propionate 50 mcg/actuation spray,suspension 1 spray intranasal DAILY PRN (Reason: allergy symptoms) Patient Comments: instill 2 sprays in each nostril daily budesonide-formoterol [Symbicort] 80-4.5 mcg/actuation HFA aerosol inhaler 2 inh inhalation BID Patient Comments: INHALE TWO PUFFS BY MOUTH TWICE DAILY. RINSE MOUTH AFTER USE nystatin 100,000 unit/gram powder 1 applic topical BID clotrimazole-betamethasone 1-0.05 % cream 1 applic topical BID epinephrine [EpiPen 2-Wayne] 0.3 mg/0.3 mL auto-injector 0.3 mg IM ONCE Rx Instructions: as a single dose; may repeat once meloxicam 7.5 mg tablet 7.5 mg PO QDAY Patient Comments: STOP 5-7 DAYS PRIOR TO OR Jardiance 25 mg tablet 25 mg PO QAM Patient Comments: PCP WANTS PT TO STOP 3-4 DAYS PRIOR TO SURGERY diclofenac sodium 1 % gel 2 g topical ONCE Rx Instructions: apply to single elbow, wrist or hand; for hand includes palm/fingers/back of hand pantoprazole 40 mg tablet,delayed release (DR/EC) 40 mg PO QDAY Ingrezza 80 mg capsule 80 mg PO HS buprenorphine 10 mcg/hour patch weekly 1 patch topical QWEEK Linzess 145 mcg capsule 145 mcg PO QAM Qty: 60 2RF Sutab 1.479-0.188- 0.225 gram tablet See Rx Instructions PO PER PKG DIR Qty: 24 0RF Rx Instructions: PO PER PKG DIR albuterol sulfate 90 mcg/actuation HFA aerosol inhaler 1 inh INHALATION PRN PRN (Reason: shortness of breath or wheezing) trazodone 100 mg tablet 100 mg PO QHS Patient Comments: TAKE 1 TABLET BY MOUTH EVERY DAY AT NIGHT aripiprazole 20 mg tablet 20 mg PO DAILY Patient Comments: TAKE ONE TABLET BY MOUTH DAILY AT 9AM divalproex 500 mg tablet extended release 24 hr 500 mg PO QHS levothyroxine 100 mcg tablet 100 mcg PO DAILY oxybutynin chloride 5 mg tablet extended release 24hr 5 mg PO DAILY insulin glargine [Lantus Solostar U-100 Insulin] 100 unit/mL (3 mL) insulin pen 20 unit subcut DAILY Mounjaro 5 mg/0.5 mL pen injector 5 mg subcut QWEEK Patient Comments: LAST DOSE 03/12/2024 furosemide 20 mg tablet 20 mg PO DAILY nicotine 21-14-7 mg/24 hr patch, TD daily, sequential 1 patch topical DAILY Tobradex ST 0.3-0.05 % drops,suspension 1 drp ophthalmic (eye) .Q4-6H acetaminophen 500 mg capsule 500 mg PO Q6H PRN (Reason: pain) docusate sodium [Colace] 100 mg capsule 100 mg PO BID PRN (Reason: constipation) Primary Care Provider: Eric Marion Referrals: Eric Marion, SECURITY DIRECTOR-C [Primary Care Provider] - Activity Restrictions/Additional Instructions: Your x-rays reveal no signs of fracture or dislocation indicating you have bruises from your fall. Continue with your home medications as directed by your doctors and add the muscle relaxer for improved symptom relief. Return to the ER should you have any further concerns Print Language: Djiboutian Disposition Disposition: Home, Self Care
[2024-03-16 02:29] VITALS: BP 98/72; PULSE 61; RESP 16; TEMP 36.6; O2SAT 99
[2024-03-16 04:00] VITALS: PULSE 65; RESP 18; O2SAT 99
== END 2024-03-16 06:48 | disposition home or self-care (01) ==
PROVIDERS: Emergency Provider Emergency Medicine; PCP Nurse Practitioner Family; Visit Provider Emergency Medicine
DX: S40.019A Contusion of unspecified shoulder, initial encounter (principal); I50.9 Heart failure, unspecified; I13.0 Hypertensive heart and chronic kidney disease with heart failure and stage 1 through stage 4 chronic kidney disease, or unspecified chronic kidney disease; J43.9 Emphysema, unspecified; E11.22 Type 2 diabetes mellitus with diabetic chronic kidney disease; E11.40 Type 2 diabetes mellitus with diabetic neuropathy, unspecified; Z87.891 Personal history of nicotine dependence; S50.02XA Contusion of left elbow, initial encounter; E78.00 Pure hypercholesterolemia, unspecified; N18.9 Chronic kidney disease, unspecified; F41.9 Anxiety disorder, unspecified; F32.A Depression, unspecified; K21.9 Gastro-esophageal reflux disease without esophagitis; E66.9 Obesity, unspecified; W18.30XA Fall on same level, unspecified, initial encounter; M25.511 Pain in right shoulder; M25.512 Pain in left shoulder
CPT/HCPCS: 73030; 73080; 96372; 99284

== ENCOUNTER 2024-03-20 13:44 | Observation (INO) | payer MEDICARE, MEDICAID, SELFPAY ==
--- NOTE | 2024-03-07 15:50 | PAT.ANESEVAL ---
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 When Was Last Pacemaker Check QUESTION #4 FULL TEXT: You/Your Family Experience fever (hyperthermia) with Anesthesia Last Oral Intake Last Oral intake: Last Oral Intake NPO since Meds taken in AM with sips of water? Meds patient instructed to take am of surgery PONV PONV - science technicians: PONV - science technicians Female Yes 03/07/24 12:40 HX of Motion Sickness No 03/07/24 12:40 HX of N/V After Surgery No 03/07/24 12:40 Non-Smoker Yes 03/07/24 12:40 Duration of Surgery greater Yes 03/07/24 12:40 than 60 minutes Number of Risk Factors 3 03/07/24 12:40 PONV Score Moderate Risk 03/07/24 12:40 Height & Weight Height & Weight: Anesthesia: Height & Weight Height 5 ft 6 in 01/23/24 21:40 Respiratory Assessment Respiratory Assessment - science technicians: Respiratory Tract Infection Hx - science technicians Hx Respiratory Tract Infection No 03/07/24 12:40 STOP Sleep Apnea STOP Sleep Apnea - science technicians: STOP Sleep Apnea - science technicians Hx Hypertension Yes 03/07/24 12:40 Hx Sleep Apnea Yes 03/07/24 12:40 CPAP Yes: NONCOMPLIANT 03/07/24 12:40 BIPAP No 03/07/24 12:40 Do you snore loudly (louder than talking or can be heard Do you often feel tired/ fatigued/ sleepy during daytime? Has anyone observed you stop breathing during sleep? STOP Results Positive 03/07/24 12:40 QUESTION #5 FULL TEXT : Do you snore loudly (louder than talking or can be heard through closed doors)? 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 Specify any problems Hx of Preganancy in last 3 No 03/07/24 12:40 Months Nurse Filling Out Transfusion VCHRISTIN 03/07/24 12:40 & Questions: Date: 03/07/24 03/07/24 12:40 Time: 12:41 03/07/24 12:40 Patient unable to answer at this time (ie. confused, unrespo /Reproduction History /Reproductive History - science technicians: /Reproductive Hx- science technicians Hx Now No 03/07/24 12:40 Gestational Age (in weeks): EDC: Hx Hx Para Hx Section SAB No 03/07/24 12:40 PFSH Medical History (Updated 03/07/24 @ 12:40 by Huyen Pablo) Wears hearing aid Post-menopausal Depression Anxiety History of steroid therapy Walker as ambulation aid Kidney stones Arthritis Back pain History of IBS Former smoker COPD (chronic obstructive pulmonary disease) Shortness of breath on exertion Thyroid disease History of heart attack History of stress test History of echocardiogram Low platelet count Anemia History of ESBL E. coli infection Morbid obesity with BMI of 40.0-44.9, adult Congestive heart failure Peripheral edema History of CHF (congestive heart failure) History of atrial fibrillation History of hypertension Chest pain of uncertain etiology Bradycardia History of tobacco use History of diabetes mellitus, type II History of COPD Acute hypotension Pulmonary hypertension, secondary Abdominal ascites Diverticulitis large intestine w/o perforation or abscess w/bleeding Pericardial effusion with cardiac tamponade Chronic kidney disease History of cardiac arrest Chest pain Wears glasses Wears dentures Substance abuse Alcohol use Rash Gout High cholesterol PVD (peripheral vascular disease) Easy bruising Seizures Dietary restriction Gastric reflux Injury of back Vapes nicotine containing substance Fall History of pain when walking History of edema Insomnia Major depression On home oxygen therapy Emphysema, unspecified Neuropathy Cardiology follow-up encounter History of ulceration DKA (diabetic ketoacidosis) Cardiac arrest halfway current use of anticoagulant Encounter for infusaport central venous catheter removal Lichen sclerosus Macular degeneration Essential hypertension Decreased left ventricular function Paroxysmal atrial fibrillation Diverticulosis Migraine Iron deficiency anemia COPD (chronic obstructive pulmonary disease) Port-A-Cath in place Acid reflux IBS (irritable bowel syndrome) CHF (congestive heart failure) Neuropathy Kidney failure Hypothyroid Schizoaffective disorder, bipolar type Emphysema lung Diabetes Heart attack Home Medications ?Medication ?Instructions ?Recorded ?Last Taken ?Type apixaban 5 mg tablet (Eliquis) 5 mg PO BID blood thinner 12/24/22 07/27/23 History atorvastatin 20 mg tablet 20 mg PO DAILY cholesterol 12/24/22 07/27/23 History gabapentin 300 mg capsule 300 mg PO TID nerve pain 12/25/22 07/27/23 History albuterol sulfate 90 mcg/actuation 1 inh inhalation PRN PRN shortness 12/31/22 Unknown History aerosol inhaler of breath or wheezing trazodone 100 mg tablet 100 mg PO QHS sleep 01/01/23 07/26/23 History aripiprazole 20 mg tablet 20 mg PO DAILY mental health 03/09/23 07/26/23 History budesonide-formoterol HFA 80 2 inh inhalation BID breathing 04/27/23 07/27/23 History mcg-4.5 mcg/actuation aerosol inhaler (Symbicort) fluticasone propionate 50 1 spray intranasal DAILY PRN 04/27/23 Unknown History mcg/actuation nasal allergy symptoms spray,suspension divalproex 500 mg tablet,extended 500 mg PO QHS seizure 07/25/23 07/27/23 History release 24 hr levothyroxine 100 mcg tablet 100 mcg PO DAILY thyroid 07/25/23 07/27/23 History oxybutynin chloride 5 mg 5 mg PO DAILY bladder 07/25/23 07/27/23 History tablet,extended release 24 hr insulin glargine 100 unit/mL (3 20 unit subcut DAILY diabetes 10/13/23 Unknown History mL) subcutaneous pen (Lantus Solostar U-100 Insulin) clotrimazole-betamethasone 1 1 applic topical BID skin 12/24/23 Unknown History %-0.05 % topical cream irritation diclofenac sodium 1 % topical gel 2 g topical ONCE 12/24/23 Unknown History empagliflozin 25 mg tablet 25 mg PO QAM diabetes 12/24/23 Unknown History (Jardiance) epinephrine 0.3 mg/0.3 mL 0.3 mg IM ONCE allergic reaction 12/24/23 Unknown History injection, auto-injector (EpiPen 2-Wayne) meloxicam 7.5 mg tablet 7.5 mg PO QDAY pain 12/24/23 Unknown History pantoprazole 40 mg tablet,delayed 40 mg PO QDAY acid reflux 12/24/23 Unknown History release nystatin 100,000 unit/gram topical 1 applic topical BID skin 01/06/24 Unknown History powder irritation valbenazine 80 mg capsule 80 mg PO HS 01/06/24 Unknown History (Ingrezza) acetaminophen 500 mg capsule 500 mg PO Q6H PRN pain 03/07/24 Unknown History buprenorphine 10 mcg/hour weekly 1 patch topical QWEEK 03/07/24 Unknown History transdermal patch docusate sodium 100 mg capsule 100 mg PO BID PRN constipation 03/07/24 Unknown History (Colace) furosemide 20 mg tablet 20 mg PO DAILY 03/07/24 Unknown History nicotine 1 patch topical DAILY 03/07/24 Unknown History 21mg/24hr-14mg/24hr-7mg/24hr daily transderm patches,sequentl tirzepatide 5 mg/0.5 mL 5 mg subcut QWEEK 03/07/24 Unknown History subcutaneous pen injector (Mounjaro) tobramycin 0.3 %-dexamethasone 1 drp ophthalmic (eye) .Q4-6H 03/07/24 Unknown History 0.05 % eye drops,suspension (Tobradex ST) Allergy/AdvReac Type Severity Reaction Status Date / Time aspirin Allergy Mild Hives Verified 03/07/24 11:52 erythromycin base Allergy Mild Hives Verified 03/07/24 11:52 Penicillins Allergy Mild Hives Verified 03/07/24 11:52 polyethylene glycol 3350 Allergy Mild Nausea/Vom/ Verified 03/07/24 11:52 (From Miralax) Diarrhea tramadol Allergy Mild Hives Verified 03/07/24 11:52 tomato Allergy Food Verified 03/07/24 11:52 Allergy Family History Mother Heart disease Hypertension Cancer Father Brain aneurysm age 40 CVA (cerebral vascular accident) Cancer Brother Colon cancer Surgical History (Updated 03/07/24 @ 12:40 by Huyen Pablo) Hx of surgical procedure History of bilateral knee replacement Hx of vein stripping Hx of toe surgery History of lithotripsy History of delivery History of bilateral cataract extraction History of cholecystectomy H/O: hysterectomy Social History household members: caregiver Smoking Status: Current every day smoker tobacco type: cigarettes and e-cigarettes Tobacco: How many years used: 18 Electronic Cigarette Use: with nicotine second hand exposure: No alcohol intake: never substance use type: does not use caffeine: Yes Audit: Pertinent Findings Pertinent Findings EKG Perinent findings: 01/24/2024 unusual P axis possible ectopic atrial bradycardia nonspecific T wave abnormality rate of 50 bpm Stress test pertinent findings: 02/10/2023 no ischemia ejection fraction 73% negative Echo (EF%) pertinent findings: 06/25/2023 ejection fraction 65% pulmonary artery pressure 46 Consult pertinent findings: Cardiology 01/03/2024 preop examination patient acceptable risk for proposed procedure to paroxysmal atrial fibrillation COPD chronic hypertension chronic diabetes schizoaffective disorder bipolar type bilateral lower extremity edema chronic Recommendation Anesthesia Recommendation Anesthesia recommendation: OPTIMIZED for anesthesia
[2024-03-10 11:12] LABS: Absolute Lymphocyte Count 1.17 X10^3/uL (0.83-4.51); Absolute Neutrophil Count 5.9 X10^3/uL (2.0-7.7); Basophil# 0.05 X10^3/uL; Basophil% 0.6 % (0-1); Eosinophil# 0.49 X10^3/uL; Eosinophils% 5.8 % (0-5); Hematocrit 33.7 % (37-47); Hemoglobin 10.5 g/dL (12.0-15.0); Lymphocyte # 1.17 X10^3/ul (0.83-4.51); Lymphocyte % 13.8 % (19-41); Mean Corp Hgb Conc 31.2 g/dL (32-36); Mean Corpuscular Hgb 29.3 pg (27.0-32.0); Mean Corpuscular Volume 94.1 fL (81-99); Mean Platelet Vol. 9.6 fl (6.2-12.0); Monocyte# 0.79 X10^3/uL; Monocyte% 9.3 % (0-10); NRBC Flagged by Analyzer 0 % (0-5); Neutrophil # 5.94 X10^3/uL (2.7-7.7); Platelet Count 143 K/mm3 (150-450); RBC Distribution Width CV 15.9 % (11.6-14.6); RBC Distribution Width SD 55.3 fl (35.1-43.9); Red Blood Count 3.58 M/mm3 (4.2-5.4); White Blood Count 8.5 K/mm3 (4.4-11.0)
[2024-03-10 11:40] LABS: Magnesium 3.2 mg/dL (1.6-2.6)
[2024-03-10 12:09] LABS: HIV - WCH Non-Reactive (Nonreactive); Hepatitis B Surface Antibody Non-Reactive; Hepatitis C Antibody Non-Reactive (Nonreactive)
[2024-03-11 06:08] LABS: Hepatitis A AB, Total Negative (Negative)
[2024-03-20] VITALS (16 sets, daily range): BP systolic 96–136; BP diastolic 46–79; PULSE 63–74; RESP 12–20; TEMP 35.7–36.9; O2SAT 95–100; BMI 37.9; BMI 38.5
[2024-03-20] MEDS: 0.9% Normal Saline (1000mL) 1,000 ML 15 ML IV (09:34)
[2024-03-20] MEDS: Magnesium 1 GM over 15 mins IV (09:34)
[2024-03-20] MEDS: Acetaminophen 500 MG Tablet 1000 MG PO (09:34)
[2024-03-20] MEDS: Insulin Lispro 100 UNIT/ML INSULN.PEN SC ×2 (09:38→21:47)
--- NOTE | 2024-03-20 09:50 | PRE.ANES_ITS ---
ASA Classification* ASA Classification ASA Classification: 3 Assessment & Plan Anesthesia* Anesthesia Assessment Anesthesia Assessment: Discussed sedation and/or anesthesia options, risks, benefits, and alternatives with patient/parents/legal guardian/POA. Questions invited. The patient/parents/legal guardian/POA seems to understand and agrees to proceed with anesthesia plan. Reviewed the physical assessment, medical history, allergy history and patient home medications list prior to surgery/procedure/anesthetic and documented any changes. Performed airway and anesthesia risk assessments. Anesthesia Type Anesthesia Type: General (Duoneb given preop, patient aware of possible need for post op ventilation support) Anesthesia Focused Assessment* Temperature: 97.1 F Pulse Rate: 63 Blood Pressure: 112/79 Respiratory Rate: 16 Pulse Ox: 96 Airway Assessment Mouth opens: >3 cm Mallampati Score: II Focused Labs Anesthesia Preop lab: CBC WBC 8.5 K/mm3 (4.4-11.0) 03/10/24 10:49 RBC 3.58 M/mm3 (4.2-5.4) L 03/10/24 10:49 Hgb 10.5 g/dL (12.0-15.0) L 03/10/24 10:49 Hct 33.7 % (37-47) L 03/10/24 10:49 Plt Count 143 K/mm3 (150-450) L 03/10/24 10:49 CHEMISTRY Potassium 3.4 mmol/L (3.5-5.1) L 01/26/24 08:17 Sodium 142 mmol/L (136-145) 01/26/24 08:17 Magnesium 3.2 mg/dL (1.6-2.6) H 03/10/24 10:49 Phosphorus 3.6 mg/dL (2.5-4.9) 01/23/24 17:52 BUN 23 mg/dL (7-18) H 01/26/24 08:17 Creatinine 1.08 mg/dL (0.55-1.02) H 01/26/24 08:17 Glucose 98 mg/dL (74-106) 01/26/24 08:17 POC Glucose 133 mg/dL (74-106) H 01/26/24 11:34 TSH 5.890 uIU/mL (0.358-3.740) H 03/10/24 10:49 COAG PT 14.3 SECONDS (11.7-14.9) 03/09/23 15:56 Pre-Assessment Diagnosis/Proposed Procedure Planned Operative Procedure(s): Lumbar laminectomy L4-5 Anesthesia History 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 When Was Last Pacemaker Check QUESTION #4 FULL TEXT: You/Your Family Experience fever (hyperthermia) with Anesthesia Last Oral Intake Last Oral intake: Last Oral Intake NPO since 07:45 03/20/24 09:19 Meds taken in AM with sips of water? 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 Female Yes 03/07/24 12:40 HX of Motion Sickness No 03/07/24 12:40 HX of N/V After Surgery No 03/07/24 12:40 Non-Smoker Yes 03/07/24 12:40 Duration of Surgery greater Yes 03/07/24 12:40 than 60 minutes Number of Risk Factors 3 03/07/24 12:40 PONV Score Moderate Risk 03/07/24 12:40 Height & Weight Height & Weight: Anesthesia: Height & Weight Height 5 ft 3 in 03/20/24 09:19 Weight: 97.069 kg 03/20/24 09:19 Body Mass Index (BMI) 37.9 03/20/24 09:19 Respiratory Assessment Respiratory Assessment - video game programmer: Respiratory Tract Infection Hx - video game programmer Hx Respiratory Tract Infection No 03/07/24 12:40 STOP Sleep Apnea STOP Sleep Apnea - video game programmer: STOP Sleep Apnea - video game programmer Hx Hypertension Yes 03/17/24 11:03 Hx Sleep Apnea Yes 03/07/24 12:40 CPAP Yes: NONCOMPLIANT 03/07/24 12:40 BIPAP No 03/07/24 12:40 Do you snore loudly (louder than talking or can be heard Do you often feel tired/ fatigued/ sleepy during daytime? Has anyone observed you stop breathing during sleep? STOP Results Positive 03/07/24 12:40 QUESTION #5 FULL TEXT : Do you snore loudly (louder than talking or can be heard through closed doors)? 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 Specify any problems Hx of Preganancy in last 3 No 03/07/24 12:40 Months Nurse Filling Out Transfusion VCHRISTIN 03/07/24 12:40 & Questions: Date: 03/07/24 03/07/24 12:40 Time: 12:41 03/07/24 12:40 Patient unable to answer at this time (ie. 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: /Reproductive Hx- video game programmer Hx Now No 03/07/24 12:40 Gestational Age (in weeks): EDC: Hx Hx Para Hx Section SAB No 03/07/24 12:40 Active Medications Active Medications: Current Medications Generic Name Dose Route Start Last Admin Trade Name Freq PRN Reason Stop Dose Admin Acetaminophen 1,000 mg 03/20/24 11:15 03/20/24 09:34 Acetaminophen 500 Mg Tablet PO 03/20/24 11:16 1,000 mg X1 ONE Administration Albuterol/Ipratropium 3 ml 03/20/24 09:49 Ipratropium/Albuterol Sulfate 3 Ml Ampul.Neb INHALATION 03/20/24 09:50 X1 ONE Clindamycin Phosphate 900 mg in 50 mls @ 75 mls/hr 03/20/24 11:15 Cleocin IV 03/20/24 11:54 PREOP ONE Tranexamic Acid 1,000 mg/ 110 mls @ 440 mls/hr 03/20/24 11:15 Sodium Chloride IV 03/20/24 11:29 X1 ONE Tranexamic Acid 1,000 mg/ 110 mls @ 440 mls/hr 03/20/24 11:15 Sodium Chloride IV 03/20/24 11:29 X1 ONE Magnesium Sulfate 1 gm/ 102 mls @ 408 mls/hr 03/20/24 11:15 03/20/24 09:34 Dextrose IV 03/20/24 11:29 408 mls/hr X1 ONE Administration Sodium Chloride 1,000 mls @ 15 mls/hr 03/20/24 08:45 03/20/24 09:34 IV 03/25/24 22:04 15 mls/hr .Q48H PAIGE Administration Protocol Insulin Human Lispro 1 - 6 unit 03/20/24 11:15 03/20/24 09:38 Insulin Lispro 100 Unit/Ml Insuln.Pen SC 3 unit Q4H PRN PRN Administration BG>/= 180, SEE PROTOCOL Protocol PFSH Medical History Wears hearing aid Post-menopausal Depression Anxiety History of steroid therapy Walker as ambulation aid Kidney stones Arthritis Back pain History of IBS Former smoker COPD (chronic obstructive pulmonary disease) Shortness of breath on exertion Thyroid disease History of heart attack History of stress test History of echocardiogram Low platelet count Anemia History of ESBL E. coli infection Morbid obesity with BMI of 40.0-44.9, adult Congestive heart failure Peripheral edema History of CHF (congestive heart failure) History of atrial fibrillation History of hypertension Chest pain of uncertain etiology Bradycardia History of tobacco use History of diabetes mellitus, type II History of COPD Acute hypotension Pulmonary hypertension, secondary Abdominal ascites Diverticulitis large intestine w/o perforation or abscess w/bleeding Pericardial effusion with cardiac tamponade Chronic kidney disease History of cardiac arrest Chest pain Wears glasses Wears dentures Substance abuse Alcohol use Rash Gout High cholesterol PVD (peripheral vascular disease) Easy bruising Seizures Dietary restriction Gastric reflux Injury of back Vapes nicotine containing substance Fall History of pain when walking History of edema Insomnia Major depression On home oxygen therapy Emphysema, unspecified Neuropathy Cardiology follow-up encounter History of ulceration DKA (diabetic ketoacidosis) 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 Encounter for infusaport central venous catheter removal Lichen sclerosus Macular degeneration Essential hypertension Decreased left ventricular function Paroxysmal atrial fibrillation Diverticulosis Migraine Iron deficiency anemia COPD (chronic obstructive pulmonary disease) Port-A-Cath in place Acid reflux IBS (irritable bowel syndrome) CHF (congestive heart failure) Neuropathy Kidney failure Hypothyroid Schizoaffective disorder, bipolar type Emphysema lung Diabetes Heart attack Home Medications ?Medication ?Instructions ?Recorded ?Last Taken ?Type apixaban 5 mg tablet (Eliquis) 5 mg PO BID blood thinner 12/24/22 03/15/24 History atorvastatin 20 mg tablet 20 mg PO DAILY cholesterol 12/24/22 07/27/23 History gabapentin 300 mg capsule 300 mg PO TID nerve pain 12/25/22 07/27/23 History albuterol sulfate 90 mcg/actuation 1 inh inhalation PRN PRN shortness 12/31/22 Unknown History aerosol inhaler of breath or wheezing trazodone 100 mg tablet 100 mg PO QHS sleep 01/01/23 07/26/23 History aripiprazole 20 mg tablet 20 mg PO DAILY mental health 03/09/23 03/18/24 History budesonide-formoterol HFA 80 2 inh inhalation BID breathing 04/27/23 07/27/23 History mcg-4.5 mcg/actuation aerosol inhaler (Symbicort) fluticasone propionate 50 1 spray intranasal DAILY PRN 04/27/23 Unknown History mcg/actuation nasal allergy symptoms spray,suspension divalproex 500 mg tablet,extended 500 mg PO QHS seizure 07/25/23 07/27/23 Hi story release 24 hr levothyroxine 100 mcg tablet 100 mcg PO DAILY thyroid 07/25/23 07/27/23 History oxybutynin chloride 5 mg 5 mg PO DAILY bladder 07/25/23 07/27/23 History tablet,extended release 24 hr insulin glargine 100 unit/mL (3 20 unit subcut DAILY diabetes 10/13/23 Unknown History mL) subcutaneous pen (Lantus Solostar U-100 Insulin) clotrimazole-betamethasone 1 1 applic topical BID skin 12/24/23 Unknown History %-0.05 % topical cream irritation diclofenac sodium 1 % topical gel 2 g topical ONCE 12/24/23 Unknown History empagliflozin 25 mg tablet 25 mg PO QAM diabetes 12/24/23 03/17/24 History (Jardiance) epinephrine 0.3 mg/0.3 mL 0.3 mg IM ONCE allergic reaction 12/24/23 Unknown History injection, auto-injector (EpiPen 2-Wayne) meloxicam 7.5 mg tablet 7.5 mg PO QDAY pain 12/24/23 Unknown History pantoprazole 40 mg tablet,delayed 40 mg PO QDAY acid reflux 12/24/23 Unknown History release nystatin 100,000 unit/gram topical 1 applic topical BID skin 01/06/24 Unknown History powder irritation valbenazine 80 mg capsule 80 mg PO HS 01/06/24 Unknown History (Ingrezza) acetaminophen 500 mg capsule 500 mg PO Q6H PRN pain 03/07/24 Unknown History buprenorphine 10 mcg/hour weekly 1 patch topical QWEEK 03/07/24 03/19/24 History transdermal patch docusate sodium 100 mg capsule 100 mg PO BID PRN constipation 03/07/24 Unknown History (Colace) furosemide 20 mg tablet 20 mg PO DAILY 03/07/24 Unknown History nicotine 1 patch topical DAILY 03/07/24 Unknown History 21mg/24hr-14mg/24hr-7mg/24hr daily transderm patches,sequentl tirzepatide 5 mg/0.5 mL 5 mg subcut QWEEK 03/07/24 03/12/24 History subcutaneous pen injector (Mounjaro) tobramycin 0.3 %-dexamethasone 1 drp ophthalmic (eye) .Q4-6H 03/07/24 Unknown History 0.05 % eye drops,suspension (Tobradex ST) linaclotide 145 mcg capsule 145 mcg PO QAM #60 caps 03/10/24 Unknown Rx (Linzess) sodium sul 1.479 gram-potas ch See Rx Instructions PO PER PKG DIR 03/10/24 Unknown Rx 0.188 gram-magnes sul 0.225 gram #24 tabs tablet (Sutab) methocarbamol 500 mg tablet 500 mg PO 4X/DAY PRN Muscle 03/16/24 Unknown Rx pain/spasm #40 tabs Allergy/AdvReac Type Severity Reaction Status Date / Time aspirin Allergy Mild Hives Verified 03/20/24 09:11 erythromycin base Allergy Mild Hives Verified 03/20/24 09:11 Penicillins Allergy Mild Hives Verified 03/20/24 09:11 polyethylene glycol 3350 Allergy Mild Nausea/Vom/ Verified 03/20/24 09:11 (From Miralax) Diarrhea tramadol Allergy Mild Hives Verified 03/20/24 09:11 tomato Allergy Food Verified 03/20/24 09:11 Allergy Family History Mother Heart disease Hypertension Cancer Father Brain aneurysm age 40 CVA (cerebral vascular accident) Cancer Brother Colon cancer Surgical History Hx of surgical procedure History of bilateral knee replacement Hx of vein stripping Hx of toe surgery History of lithotripsy History of delivery History of bilateral cataract extraction History of cholecystectomy H/O: hysterectomy Social History household members: caregiver Smoking Status: Former smoker Tobacco: How many years used: 18 Electronic Cigarette Use: with nicotine second hand exposure: No alcohol intake: never substance use type: does not use caffeine: Yes Review of Systems (Anesthesia) ROS Narrative System reviewed and no additional complaints, except as documented.
[2024-03-20] MEDS: Ipratropium/Albuterol Sulfate 3 ML AMPUL.NEB INHALATION (10:17)
--- NOTE | 2024-03-20 10:24 | HP.PCM_ITS ---
History and Physical Date of Admission: 03/20/24 MR#: [id number] Acct: [id number] Name: JADE SWANSON Rep #: [id number] : 1960 Provider: Dr. Oziel Gardner MD Age/Sex: 63/F Location: [facility] [email or web address] Status: Signed Intake Vital Signs 01/22/2421:40 02/08/2410:54 03/06/2411:41 Height 5 ft 6 in 5 ft 6 in 5 ft 6 in Intake Visit Reasons: lumbar spine Chief Complaint: lumbar spine Is patient in pain?: Yes (low back ) Pain scale (1-10): 10 Allergies aspirin Allergy (Mild, Verified 03/07/24 11:52) Hiveserythromycin base Allergy (Mild, Verified 03/07/24 11:52) HivesPenicillins Allergy (Mild, Verified 03/07/24 11:52) Hivespolyethylene glycol 3350 (From Miralax) Allergy (Mild, Verified 03/07/24 11:52) Nausea/Vom/Diarrheatramadol Allergy (Mild, Verified 03/07/24 11:52) Hivestomato Allergy (Verified 03/07/24 11:52) Food Allergy Medications ?Medication ?Instructions ?Recorded ?Confirmed ?Type apixaban 5 mg tablet (Eliquis) 5 mg PO BID blood thinner 12/24/22 03/07/24 History atorvastatin 20 mg tablet 20 mg PO DAILY cholesterol 12/24/22 03/07/24 History gabapentin 300 mg capsule 300 mg PO TID nerve pain 12/25/22 03/07/24 History albuterol sulfate 90 mcg/actuation 1 inh inhalation PRN PRN shortness 12/31/22 03/07/24 History aerosol inhaler of breath or wheezing trazodone 100 mg tablet 100 mg PO QHS sleep 01/01/23 03/07/24 History aripiprazole 20 mg tablet 20 mg PO DAILY mental health 03/09/23 03/07/24 History budesonide-formoterol HFA 80 2 inh inhalation BID breathing 04/27/23 03/07/24 History mcg-4.5 mcg/actuation aerosol inhaler (Symbicort) fluticasone propionate 50 1 spray intranasal DAILY PRN 04/27/23 03/07/24 History mcg/actuation nasal allergy symptoms spray,suspension divalproex 500 mg tablet,extended 500 mg PO QHS seizure 07/25/23 03/07/24 History release 24 hr levothyroxine 100 mcg tablet 100 mcg PO DAILY thyroid 07/25/23 03/07/24 History oxybutynin chloride 5 mg 5 mg PO DAILY bladder 07/25/23 03/07/24 History tablet,extended release 24 hr insulin glargine 100 unit/mL (3 20 unit subcut DAILY diabetes 10/13/23 03/07/24 History mL) subcutaneous pen (Lantus Solostar U-100 Insulin) clotrimazole-betamethasone 1 1 applic topical BID skin 12/24/23 03/07/24 History %-0.05 % topical cream irritation diclofenac sodium 1 % topical gel 2 g topical ONCE 12/24/23 03/07/24 History empagliflozin 25 mg tablet 25 mg PO QAM diabetes 12/24/23 03/07/24 History (Jardiance) epinephrine 0.3 mg/0.3 mL 0.3 mg IM ONCE allergic reaction 12/24/23 03/07/24 History injection, auto-injector (EpiPen 2-Wayne) meloxicam 7.5 mg tablet 7.5 mg PO QDAY pain 12/24/23 03/07/24 History pantoprazole 40 mg tablet,delayed 40 mg PO QDAY acid reflux 12/24/23 03/07/24 History release nystatin 100,000 unit/gram topical 1 applic topical BID skin 01/06/24 03/07/24 History powder irritation valbenazine 80 mg capsule 80 mg PO HS 01/06/24 03/07/24 History (Ingrezza) acetaminophen 500 mg capsule 500 mg PO Q6H PRN pain 03/07/24 03/07/24 History buprenorphine 10 mcg/hour weekly 1 patch topical QWEEK 03/07/24 03/07/24 History transdermal patch docusate sodium 100 mg capsule 100 mg PO BID PRN constipation 03/07/24 03/07/24 History (Colace) furosemide 20 mg tablet 20 mg PO DAILY 03/07/24 03/07/24 History nicotine 1 patch topical DAILY 03/07/24 03/07/24 History 21mg/24hr-14mg/24hr-7mg/24hr daily transderm patches,sequentl tirzepatide 5 mg/0.5 mL 5 mg subcut QWEEK 03/07/24 03/07/24 History subcutaneous pen injector (Joseph) tobramycin 0.3 %-dexamethasone 1 drp ophthalmic (eye) .Q4-6H 03/07/24 03/07/24 History 0.05 % eye drops,suspension (Tobradex ST) PFSH Medical History (Updated 03/07/24 @ 12:40 by Huyen Pablo) Wears hearing aid Post-menopausal Depression Anxiety History of steroid therapy Walker as ambulation aid Kidney stones Arthritis Back pain History of IBS Former smoker COPD (chronic obstructive pulmonary disease) Shortness of breath on exertion Thyroid disease History of heart attack History of stress test History of echocardiogram Low platelet count Anemia History of ESBL E. coli infection Morbid obesity with BMI of 40.0-44.9, adult Congestive heart failure Peripheral edema History of CHF (congestive heart failure) History of atrial fibrillation History of hypertension Chest pain of uncertain etiology Bradycardia History of tobacco use History of diabetes mellitus, type II History of COPD Acute hypotension Pulmonary hypertension, secondary Abdominal ascites Diverticulitis large intestine w/o perforation or abscess w/bleeding Pericardial effusion with cardiac tamponade Chronic kidney disease History of cardiac arrest Chest pain Wears glasses Wears dentures Substance abuse Alcohol use Rash Gout High cholesterol PVD (peripheral vascular disease) Easy bruising Seizures Dietary restriction Gastric reflux Injury of back Vapes nicotine containing substance Fall History of pain when walking History of edema Insomnia Major depression On home oxygen therapy Emphysema, unspecified Neuropathy Cardiology follow-up encounter History of ulceration DKA (diabetic ketoacidosis) 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 Encounter for infusaport central venous catheter removal Lichen sclerosus Macular degeneration Essential hypertension Decreased left ventricular function Paroxysmal atrial fibrillation Diverticulosis Migraine Iron deficiency anemia COPD (chronic obstructive pulmonary disease) Port-A-Cath in place Acid reflux IBS (irritable bowel syndrome) CHF (congestive heart failure) Neuropathy Kidney failure Hypothyroid Schizoaffective disorder, bipolar type Emphysema lung Diabetes Heart attack Surgical History (Updated 03/07/24 @ 12:40 by Huyen Pablo) Hx of surgical procedure History of bilateral knee replacement Hx of vein stripping Hx of toe surgery History of lithotripsy History of delivery History of bilateral cataract extraction History of cholecystectomy H/O: hysterectomy Family History Mother Heart disease Hypertension CancerFather Brain aneurysm age 40 CVA (cerebral vascular accident) CancerBrother Colon cancer Social History household members: caregiver Smoking Status: Current every day smoker tobacco type: cigarettes and e- cigarettes Tobacco: How many years used: 18 Electronic Cigarette Use: with nicotine second hand exposure: No alcohol intake: never substance use type: does not use caffeine: Yes HPI lumbar spine Chief Complaint: lumbar spine Details: This documentation accurately reflects the service provided and the decisions made by me, Dr. Oziel Gardner MD 03/07/24 0915. Part of today?s visit was documented by [ ], acting as scribe. JADE SWANSON is a 63 year old F here today for pre-op L4-5 laminectomy scheduled in March. She continues to have low back pain and difficulty walking distances and numbness in both lower extremities. 01/21/24: JADE SWANSON is a 63 year old F here today for a MRI review. Patient states her pain is about the same as before the MRI. Her hazardous material technician has sent clearance. We have not received clearance from her social problems specialist but says that cleared her. She wears oxygen at night for COPD. HPI from 12/30/23: JADE SWANSON is a 63 year old F here today for a MRI Review. Patient states during the MRI she kept on cramping in both her legs. Patient states her pain is a little worse since the MRI. She uses a Rollator walker and has had to use an ambulatory device for the last 25 years. Says that she used an electric wheelchair for a time a year ago. She was told that she had trouble with her legs when she was a child and had wear braces on her legs until she was 6. Says left feels weaker than right. She had a right total knee replacement two years ago. Over the last 1 to 2 years, she has noticed worsening of her balance and is finding it more more difficult to get the strength to stand and walk. HPI from 11/26/23: JADE SWANSON is a 63 year old F here today for lumbar spine pain. Pt. presents wearing a lumbar brace, using a walker for ambulation. She advises she has been experiencing low back pain since January 2023 and progressively gotten worse. She believes it may have been caused by a fall she had a year ago where she fell down 5 concrete steps and was not treated. Says that before the fall she did not have pain and did not need an ambulatory device. She also c/o sciatica pain from her low back down her bilateral legs to her feet as well as numbness and tingling. Has a history of neuropathy and had an EMG performed several years ago. She does not see neurology. Says that the left is slightly worse than the right. Says that the pain has worsened since last year and since her last MRI. She denies previous back injury or surgery. She has been receiving steroid injections from Dr. Sarmiento since January 2023 which were helpful for a few days before the pain returns. He manages her pain medication. She states she has done PT and had an MRI last year. The physical therapy that she had done for the back pain was not helpful. She was discharged from physical therapy in October. Patient uses a rollator walker to walk and says that walking increases the pain and she has to take multiple breaks. She also wears a back brace daily which improves the pain enough that she can walk. She has a history of heart attacks last 1 being in August 2022 and she also follows with pulmonary for nodules. She has a history of COPD, diabetes, A-fib. She wears oxygen at home but says she typically does not need to wear oxygen when she goes out in public. An A1c in July was 10.3 she says that she had another 1 done after that however I do not see it in her chart she says it was about 6.8 at that time. She takes Eliquis. Ortho Exam General Neurologic: Yes alert and Yes oriented x3 Psychologic: Yes reasonable and appropriate Spine SPINE TESTING CERVICAL THORACIC LUMBAR Musculoskeletal Strength 0=absent - 5=normal Details: Neurological exam of the lower extremities shows 4x5 power, equal bilaterally due to pain. Normal sensations across all dermatomes. Reflexes in the lower extremities could not be tested due to patient unable to sit on exam table. No midline and paraspinal tenderness with the brace on. Passive straight leg raise positive bilaterally. Tremor in hands bilaterally from tardive dyskinesia. Patient unable to do Romberg's without support due to poor balance. Coding Level of Care Code Off vis,est,level 4 Diagnoses Spondylolisthesis, lumbar region M43.16 Thoracic myelopathy M47.14 Spinal stenosis of lumbar region with neurogenic claudication M48.062 Time Spent (min) 35 Assessment and Plan Assessment and Plan (1) Spondylolisthesis, lumbar region: Status: Acute (2) Thoracic myelopathy: Status: Acute (3) Spinal stenosis of lumbar region with neurogenic claudication: Status: Acute Plan Again reviewed all imaging. Imaging shows mild degenerative disc disease but no cord compression. While screening images did show T10-11 spinal cord compression, the dedicated thoracic MRI seems guarded and did in the diaphoresis but no severe central cord compression or cord signal changes noticed. Again reviewed prior lumbar MRI and xrays. Imaging shows severe spinal canal stenosis of L4-5. Imaging also shows a right posterior synovial cyst. Upright lumbar x- rays show L4-5 grade 1 spondylolisthesis on flexion view which reduces with extension. Explained imaging findings in detail. Considering that the dedicated thoracic MRI did not show severe cord compression or cord signal changes, I would defer thoracic laminectomy for now. The patient has severe medical comorbidities, and surgical intervention would ideally be limited to the most severe problem. For her severe lumbar stenosis, I discussed treatment options. Discussed options today which include lumbar fusion vs laminectomy L4-5. Due to her prior medical history a lumbar fusion may not be recommended given the duration of the surgery. Discussed the laminectomy L4-5 procedure in detail and discussed risks and benefits. The risks include but are not limited to infection, bleeding, hematoma formation, injury to nerves and vessels, nerve root injury, foot drop, persistent pain, persistent weakness and numbness, difficulty ambulating, DVT, pulmonary embolism, need for further surgery, pneumonia, atelectasis, cardiopulmonary event. Patient understands and agrees to proceed with surgery.
[2024-03-20] MEDS: Clindamycin 900 MG/50 ML BAG 75 MG IV ×2 (11:04→18:23)
[2024-03-20] MEDS: TRANEXAMIC ACID 1,000 MG in 0.9% Normal Saline (100mL Bag) 100 ML 440 MG IV ×2 (11:20→13:05)
--- NOTE | 2024-03-20 11:40 | RAD_ITS ---
INDICATION: LUMBAR LAMINECTOMY L4-5 -- Fluoro Time = 6.0 secs Radiation Dose = 4.94 mGy EXAMINATION/TECHNIQUE: X-RAY - XR Spine Lumbar 2 or 3 Views COMPARISON: No relevant prior comparison study available FINDINGS: Crosstable lateral views of the lumbar spine were obtained intraoperatively. Images were obtained for documentation and not for diagnostic purposes. Number of fluoroscopic images: 2 Radiation dose: 4.94 mGy. Fluoroscopy time: 6 seconds. RAD/Lumbar Spine 2 or 3 Views IMPRESSION: Intraoperative exam as described above. Electronically Signed: Germán Beyer MD at 10:02 EST ,
[2024-03-20 12:51] LABS: Bedside Glucose 279 mg/dL (74-106)
[2024-03-20] MEDS: Ropivacaine 0.5% 30 ML Vial (13:29)
--- NOTE | 2024-03-20 13:53 | PCM.POST.ANE ---
Anesthesia: Postop Eval I Current Vital Signs Temperature: 98.2 F Pulse Rate: 74 Blood Pressure: 136/60 Respiratory Rate: 16 Pulse Ox: 100 Oxygen Delivery Method: Simple Mask Oxygen Flow Rate (L/min): 6 Assessment Airway patent: Yes Spontaneous unlabored respirations: Yes Mental status: Asleep nausea: No Vomiting: No Anesthesia Complication: No Fluid Hydration Crystalloid volume administer (ml): 500 Total IV fluid infused: 500 Progress Note Anesthesia document: Postop Eval 1 completed: Yes
--- NOTE | 2024-03-20 13:54 | PCM.OPRPT ---
Procedures Musculoskeletal 20xxx-29xxx: Other Procedure See Report Operative Report (Standard) Operative Information Date of Procedure: 03/20/24 Pre-Operative Diagnosis: L4-5 degenerative stenosis Post-Operative Diagnosis: Same Surgery/Procedure Performed: L4-5 laminectomy retail sales representative: Yes Maintenance Repairer: Jessica Bryant Tasks completed by timber management assistant: Closing, Dissecting tissue, Removing tissue, Hemostasis: Electrocautery and Retracting Type of Anesthesia: General RN Documented Start/Stop Times: Operation Date: 03/20/24 11:15 Case Time Into Pre-Op 03/20/24 08:44 Out of Pre-Op 03/20/24 10:58 Anesthesia Start 03/20/24 11:04 Into Room 03/20/24 11:04 Procedure Start 03/20/24 11:48 Procedure End 03/20/24 13:38 Anesthesia End 03/20/24 13:47 Out of Room 03/20/24 13:47 Into Recovery 03/20/24 13:52 Procedure Start Time: 11:48 Procedure Stop Time: 13:38 Select all DRAINS/GRAFTS/IMPLANTS that apply: None Estimated Blood Loss: 50 cc Specimen collected: No Description of surgery: Preoperative diagnosis: L4-5 central lateral recess stenosis bilateral, neurogenic claudication Postoperative diagnosis: Same Name of procedure: L4-5 open laminectomy CPT 51633 Attending Surgeon: Dr. Oziel Gardner Estimated blood loss: 50 mL Anesthesia: General Indications: Patient is a 63-year-old lady who presented with low back pain and left worse than right lower extremity radiation, with difficulty walking distances and neurogenic claudication. MRI revealed L4-5 degenerative stenosis, central as well as lateral recess and foraminal. All options of treatment were discussed which included continued nonoperative treatment measures like rest physical therapy, injections. After prolonged nonsurgical treatment, patient requested surgical intervention for laminectomy. All risks and benefits associated with the procedure were explained to the patient. The risks include but are not limited to infection, bleeding, injury to nerves and vessels, persistent paresthesia, incidental dural tear, recurrent disc herniation, spinal instability and need for fusion or other procedures in future, persistent pain, persistent weakness and numbness, etc. Procedure: The patient was identified in the preoperative holding suite using Unique patient identifiers. Skin was marked, consent was reviewed, and all questions were answered. The patient was then brought back to the operative room. A surgical timeout was performed to make sure correct procedure was being done on the correct patient and all operative room staff were on the same page. General endotracheal anesthesia was then given to the patient. The patient was then turned prone onto a Meño table over a Laureano frame. The back was prepped and draped in usual fashion. Preoperative antibiotic was given. A final timeout was then again done just before starting the procedure. An 18-gauge spinal needle was inserted and level was identified. An incision was then carried out in the midline. Bovie was utilized to dissect through the subcutaneous tissue up to the fascia. The fascia was bovied at the spinous process. Subperiosteal dissection was carried out along the both side of the spinous process and the lamina. This dissection was stopped at the level of the medial capsule of the facet joint. Lateral edge of the pars was also identified. A Keri was then placed under the inferior edge of the lamina and a C-arm lateral view was repeated. The level was confirmed to be the L4-5 interspace. A Quintero retractor of appropriate depth was then placed to provide retraction throughout the remainder of the surgery. A bone cutter was used to remove the spinous process. Genwordsonix bone scalpel was then utilized to first create a score along the area of the laminectomy. Care was taken to preserve at least 1 cm of bone from the lateral border of the pars. The bone scalpel was then advanced to perform the cuts along this score. The lamina was then removed with the help of procedures. The flavum was utilized to protect the dura and superior articular process was carefully from the flavum. Partial medial facetectomy was performed to provide adequate lateral recess decompression. Superior portion of L5 lamina was also removed with help of Kerrisons. All of the flavum was eventually removed. Once decompression was adequately assessed with Keri in both L5 and L4 foramina bilaterally, irrigation was done with normal saline. Irrisept was kept in the wound for 1 minute and then rinsed with saline. A small piece of Gelfoam was then placed over the bony window. The Quintero retractor was then removed. And closure was done in layers, 0 Vicryl for the deep fascia, 2-0 Vicryl for subcutaneous tissue, and 4-0 Monocryl for the skin. The deep fascial layer was closed in a watertight fashion with interrupted 1 Vicryl augmented with #1 strata fix. The skin closure was augmented with Dermabond. Harshal dressing with negative suction was then placed over the wound covered with Tegaderm. The patient was then turned supine onto a hospital bed. The patient was extubated and taken to PACU in stable condition. The patient tolerated the procedure well and no complications occurred. Estimated blood loss for the entire surgery was 50 mL. No instrumentation was utilized in this case. No dural tear occurred in this case. I was present for the entirety of the case and performed the surgery myself. Surgical Findings: See operative note Complications Complications: No
--- NOTE | 2024-03-20 14:44 | POSTOPAN2_ITS ---
Anesthesia Postop Eval I Sum Postop Eval Completion status Anesthesia document: Postop Eval 1 completed: Yes Anesthesia Postop Eval I Summary Anesthesia Postop Eval I Summary: Anesthesia Postop Eval I: Assessment Summary Airway patent Yes 03/20/24 13:53 SUPERINTENDENT STEVEDORING.[email or web address] Spontaneous unlabored Yes 03/20/24 13:53 SUPERINTENDENT STEVEDORING.MEÑO respirations Mental status Asleep 03/20/24 13:53 SUPERINTENDENT STEVEDORING.TAYLOROBScooter nausea No 03/20/24 13:53 SUPERINTENDENT STEVEDORING.TAYLOROBScooter Vomiting No 03/20/24 13:53 SUPERINTENDENT STEVEDORING.MEÑO Anesthesia Postop Eval I: Fluid Summary Crystalloid volume administer 500 03/20/24 13:53 SUPERINTENDENT STEVEDORING.TAYLOROBY (ml) Colloids volume administered ( ml) Blood Product volume administered (ml) Total IV fluid infused 500 03/20/24 13:53 SUPERINTENDENT STEVEDORING.MEÑO Anesthesia Postop Eval I: Summary Notes Anesthesia Complication No 03/20/24 13:53 SUPERINTENDENT STEVEDORING.MEÑO Anesthesia Complication Comment: Post-operative progress note Anesthesia: Postop Eval II Evaluation Mental status: Awake Pain Level: 0 nausea: No Vomiting: No
--- NOTE | 2024-03-20 14:44 | PCM.POSTANE2 ---
Anesthesia Postop Eval I Sum Postop Eval Completion status Anesthesia document: Postop Eval 1 completed: Yes Anesthesia Postop Eval I Summary Anesthesia Postop Eval I Summary: Anesthesia Postop Eval I: Assessment Summary Airway patent Yes 03/20/24 13:53 MAP DRAFTER.[email or web address] Spontaneous unlabored Yes 03/20/24 13:53 MAP DRAFTER.MEÑO respirations Mental status Asleep 03/20/24 13:53 MAP DRAFTER.TAYLOROBScooter nausea No 03/20/24 13:53 MAP DRAFTER.TAYLOROBScooter Vomiting No 03/20/24 13:53 MAP DRAFTER.MEÑO Anesthesia Postop Eval I: Fluid Summary Crystalloid volume administer 500 03/20/24 13:53 MAP DRAFTER.TAYLOROBY (ml) Colloids volume administered ( ml) Blood Product volume administered (ml) Total IV fluid infused 500 03/20/24 13:53 MAP DRAFTER.MEÑO Anesthesia Postop Eval I: Summary Notes Anesthesia Complication No 03/20/24 13:53 MAP DRAFTER.MEÑO Anesthesia Complication Comment: Post-operative progress note Anesthesia: Postop Eval II Evaluation Mental status: Awake Pain Level: 0 nausea: No Vomiting: No
[2024-03-20 15:00] LABS: Bedside Glucose 123 mg/dL (74-106)
[2024-03-20] MEDS: HYDROcodone Bitartrate/Apap 5/325 Tablet PO (17:14)
[2024-03-20] MEDS: Methocarbamol 500 MG Tablet 1000 MG PO ×2 (17:14→21:16)
[2024-03-20] MEDS: 0.9% Saline Lock 10 ML Syringe IV (18:23)
[2024-03-20] MEDS: Divalproex (ER) 500 MG Tablet PO (21:16)
[2024-03-20] MEDS: Senna/Docusate Sodium 1 Tablet 2 TABLET PO (21:16)
[2024-03-20] MEDS: Atorvastatin Calcium 20 MG Tablet PO (21:19)
[2024-03-20] MEDS: Gabapentin 300 MG Capsule PO (21:19)
--- NOTE | 2024-03-20 21:28 | PCM.PN.HOSP ---
Reason for Visit Reason for Visit: Low back pain Subjective Subjective Mrs. San is a 63-year-old white female who presented to [facility] on 03/20/2024 due to ongoing chronic low back pain with history of neurogenic claudication. MRI showed compression T10 and T11 and severe spinal canal stenosis at L4 and L5 and a grade 1 L4-L5 spondylolisthesis. Laminectomy was discussed with the patient at L4-L5 and patient elected to proceed with surgery. Patient has a past medical history that is complex and includes IBS, COPD with history of tobacco abuse, history of ESBL UTI, obesity, hypothyroidism, CKD, anemia, seizure disorder, DM-2 with diabetic neuropathy, urinary incontinence, GERD, thrombocytopenia, and paroxysmal atrial fibrillation. Patient was seen postoperatively on the medical floor. Objective Data Objective Data Vital Signs: Vital Signs Temp Pulse Resp BP Pulse Ox O2 Del Method O2 Flow Rate 97.7 F L 71 16 115/58 L 96 Nasal Cannula 2 03/20/24 21:00 03/20/24 21:00 03/20/24 21:00 03/20/24 21:00 03/20/24 21:26 03/20/24 21:26 03/20/24 21:26 Oxygen Flow Rate (L/min) 2 Oxygen Delivery Method Nasal Cannula Weight: 98.6 kg Body Mass Index (BMI) 38.5 Intake & Output: Intake and Output for Last 24 Hours 03/18/24 03/19/24 03/20/24 23:59 23:59 23:59 Intake Total 551.25 / 551.25 Output Total 300 / 300 Balance 251.25 / 251.25 Lab / Micro Data 03/10/24 10:49 Labs: Laboratory Results - last 24 hr 03/20/24 09:26: POC Glucose 279 H 03/20/24 14:41: POC Glucose 123 H Micro: Microbiology 03/10/24 10:49 Swab (Method) Nasal Screen MRSA/MSSA - Final Physical Exam Const no apparent distress and well nourished Constitutional Narrative: Obese, upper middle-aged, white female, lying in bed sleeping soundly, appears comfortable, nontoxic HEENT head/scalp atraumatic and moist oral mucous membranes HEENT Narrative: Mallampati 2-3, no thrush Head and Scalp: normocephalic Resp normal respiratory effort, no retractions, no use of accessory muscles and clear to auscultation bilaterally Auscultation: Negative for rales, rhonchi or wheezes Cardio regular rhythm, S1 normal heart sound, S2 normal heart sound, no murmurs, no rub, no gallops and no clicks Cardio Narrative: Mildly bradycardic GI normal to inspection, nondistended, normoactive bowel sounds, soft to palpation and non-tender Extremity no clubbing, cyanosis or edema Extremity Narrative: Pedal and radial pulses are 2+ Neuro Neuro Narrative: Patient sleeping soundly and unable to examine Psych Psych Narrative: Patient sleeping soundly Assessment & Plan Assessment/Plan (1) Spinal stenosis of lumbar region with neurogenic claudication: PLAN: Plan Chronic low back pain secondary to L4-L5 severe lumbar stenosis with neurogenic claudication -Postop day 0 L4-L5 open laminectomy -Pain management per primary service -Recommend scheduled bowel regimen -PT/OT per primary service History of chronic anemia/thrombocytopenia -Has followed with oncology/hematology previously -Counts appear to be stable -Monitor clinically -Repeat lab in a.m. COPD -Will utilize DuoNebs every 6 hours while awake -As needed albuterol available -Continue incentive spirometry -Out of bed and early mobility important -Recommend tobacco cessation -Continue home nicotine patch GERD -Continue home PPI Hypothyroidism -Continue home levothyroxine Urinary incontinence -Continue home Detrol DM-2 -Last hemoglobin A1c done here was on 07/27/2023 and found to be 10.3 -Hopefully blood sugar control is better in the perioperative and preoperative period to enhance healing -Would recommend outpatient follow-up to ensure adequate blood sugar control -Restart Julienro at discharge -Continue basal insulin while hospitalized -Hold home Jardiance -Accu-Cheks as ordered -Patient did appear to receive perioperative steroids so blood sugars may be somewhat out of control and adjustments may need to be made in the next 24 to 48 hours Chronic pain/neuropathy -Continue home medications as deemed appropriate per primary since he is managing acute pain medication Obesity -BMI is 38.5 -Recommend weight loss -Complicates treatment, prognosis, outcomes Hyperlipidemia -Continue atorvastatin History of paroxysmal atrial fibrillation -Patient is not on anything for rate control -Restart home apixaban when okay with orthopedic surgery IBS -Has been on Linzess -Not verified so we will hold -Recommend outpatient follow-up Schizoaffective disorder/tardive dyskinesia/insomnia -Continue aripiprazole -Continue valproic acid -Continue home Valbenazine -Continue trazodone DVT prophylaxis -Per primary service Charges/Coding Visit Charges Inpatient E&M: 05952 Subs Hosp L2
[2024-03-20 22:06] LABS: Bedside Glucose 246 mg/dL (74-106)
[2024-03-21] MEDS: HYDROcodone Bitartrate/Apap 5/325 Tablet PO ×3 (03:13→12:37)
[2024-03-21] MEDS: Clindamycin 900 MG/50 ML BAG 75 MG IV (03:15)
[2024-03-21 03:24] VITALS: BP 125/58; PULSE 84; RESP 16; TEMP 36.4; O2SAT 95; O2SAT 98
[2024-03-21] MEDS: Levothyroxine 100 MCG Tablet PO (05:18)
[2024-03-21] MEDS: Gabapentin 300 MG Capsule PO ×2 (05:18→13:49)
[2024-03-21] MEDS: Insulin Lispro 100 UNIT/ML INSULN.PEN SC ×2 (06:10→13:29)
[2024-03-21 06:29] LABS: Bedside Glucose 165 mg/dL (74-106)
[2024-03-21 06:39] LABS: Hematocrit 34.1 % (37-47); Hemoglobin 10.7 g/dL (12.0-15.0); Mean Corp Hgb Conc 31.4 g/dL (32-36); Mean Corpuscular Hgb 29.1 pg (27.0-32.0); Mean Corpuscular Volume 92.7 fL (81-99); Mean Platelet Vol. 9.7 fl (6.2-12.0); Platelet Count 142 K/mm3 (150-450); RBC Distribution Width CV 15.7 % (11.6-14.6); RBC Distribution Width SD 54.1 fl (35.1-43.9); Red Blood Count 3.68 M/mm3 (4.2-5.4); White Blood Count 13.9 K/mm3 (4.4-11.0)
[2024-03-21] MEDS: Ipratropium/Albuterol Sulfate 3 ML AMPUL.NEB INHALATION ×3 (07:33→15:41)
[2024-03-21] MEDS: Budesonide Respules 0.5 MG/2 ML AMPUL.NEB. INHALATION (07:33)
[2024-03-21 07:36] VITALS: PULSE 76; RESP 20; O2SAT 96
[2024-03-21 07:55] LABS: Anion Gap 7 (5-15); BUN 37 mg/dL (7-18); BUN/Creat Ratio 22.7 RATIO (10-20); Calcium,Total 9.4 mg/dL (8.5-10.1); Chloride 99 mmol/L (98-107); Creatinine, Serum 1.63 mg/dL (0.55-1.02); EST Glomerular Filtration Rate 34 mL/min (>60); Est Glom Filt Rate - Afr Amer 41 mL/min (>60); Estimated Creatinine Clearance 39.02 ml/min; Glucose 175 mg/dL (74-106); Potassium 4.3 mmol/L (3.5-5.1); Sodium Level 135 mmol/L (136-145)
[2024-03-21] MEDS: Pantoprazole Sodium 40 MG Tablet PO (08:37)
[2024-03-21] MEDS: Empagliflozin 25 MG Tablet PO (08:37)
[2024-03-21] MEDS: Tolterodine Tartrate 2 MG CAP.SA PO (08:37)
[2024-03-21] MEDS: Senna/Docusate Sodium 1 Tablet 2 TABLET PO (08:37)
[2024-03-21] MEDS: Furosemide 20 MG Tablet PO (08:37)
[2024-03-21] MEDS: Methocarbamol 500 MG Tablet 1000 MG PO ×2 (08:38→13:49)
[2024-03-21 09:00] VITALS: BP 158/74; PULSE 78; RESP 16; TEMP 36.8; O2SAT 97
--- NOTE | 2024-03-21 10:15 | CASEMGMT ---
HAKEEM DELUNA Assessment: Face to Face with pt for initial transition planning/care coordination assessment. HAKEEM DELUNA introduced self and role at [facility], pt voices understanding and consents to assessment. Pt is A&O x4 and answers all questions appropriately at this time. Pt sitting up in chair in no distress, Caregiver sitting at bedside. Pt agreeable to discussing DC needs with caregive present. Care providers, pharmacy, and demographics verified/updated. Strata: 3 Admitting Dx: Lumbar Laminectomy L4-5 PCP: Sanam Specialists: Jose, drying equipment operator; Alba, museum archivist; Man, digital photo printer; Jos Becerra, superintendent institution; Jj, orthopedist Preferred Pharmacy: [facility] Insurance: [facility] Prescription Benefit: yes LNOK: Sister, Elvira; Brother, Tariq Living Arrangements: Pt lives alone in an independent living apt with an elevator. Pt has a home health aid that comes M - 9-3 through [facility]. Pt ASHIA/family comes every weekend. ADLs: Pt requires assistance with ADLs and IADLs. Transportation: Pt uses provide a ride for transportation. DME: Walker, rollator, shower chair, grab bars, cane, pulse ox, O2 through [employer] uses 2L HS only, Portable tank HHC/SNF: Pt active with [facility]. Pt states no concerns with going home at time of dc and wishes to return with her home health caregivers homecare and family support. She would like to get a toilet seat riser, HAKEEM DELUNA notified HAKEEM DELUNA on floor. Pt states no further concerns/needs. CM to follow. Advised pt to ask CM if any further question/concerns/needs arise, voices understanding. Pt Goal: Home with [facility] Plan: Home with caregivers and family support, follow up appointment with Dr. Gardner scheduled for April 04, follow for safe DC plan. David PALACIO CM
[2024-03-21] MEDS: Insulin Glargine-YFGN 100 UNIT/ML Pen 20 UNIT SC (11:05)
[2024-03-21] MEDS: ARIPiprazole 10 MG Tablet 20 MG PO (11:05)
[2024-03-21 11:15] VITALS: PULSE 60; RESP 16; O2SAT 88
--- NOTE | 2024-03-21 11:31 | CASEMGMT ---
Met with pt to complete GAYTAN form. GAYTAN form explained to pt at this time who voiced understanding and signed form. Original form placed in pt?s chart and copy provided to the pt.
[2024-03-21 12:28] LABS: Bedside Glucose 159 mg/dL (74-106)
[2024-03-21] MEDS: Bisacodyl 5 MG Tablet 10 MG PO (12:37)
--- NOTE | 2024-03-21 12:50 | CASEMGMT ---
Discharge Planning A list of HH providers including quality and resource use data and consistent with the patient's preferred geographic region, medical needs, and insurance network was created in [employer] Guide.? This list was provided to the RN REGI. Caro Shay, Discharge Planning Asst.
--- NOTE | 2024-03-21 12:51 | CASEMGMT ---
Addendum entered by Jaimie Carney 03/21/24 14:27: [facility], [facility], [facility], [facility] and [facility] declined pt for services. [facility] has accepted. TC to N as no answer received, left vm with referral. [facility] requested more information. HAKEEM DELUNA into pt room, pt and sister are agreeable with [facility] after giving all options. Pt and sister aware pt is ordered oxygen at 2L. Pt sister states she will make sure that she does do this as she only uses it when she needs it. She states that the patient has a pox at home. Pt and family deny further needs. Addendum entered by Jaimie Carney 03/21/24 13:52: Received notification from Judy that [facility] does not take pt insurance. HAKEEM DELUNA into pt room to notify family and pt. Provided list of [facility]ATION HELPER created by dc purchasing administrative assistant. Sister states that [facility] is on the list. She and pt requests referral sent to all agencies and they will decide which one they want after it is known that they take pt insurance. Referral sent to all agencies in [facility] per request. Original Note: Spoke with Dr. Gardner, will have pt have PT and OT. He signed rx for toilet riser. HAKEEM DELUNA into pt room, pt sitting up in chair with aide and family member present. Provided pt rx for toilet riser. Pt states she is active with [facility]. Spoke to her regarding HHC and made aware that a list will be put together of in network POLYMERIZATION HELPER that she can chose from. Pt asked if [facility] is in network. She would like this referral made so everything can be in one place. TC to [facility], left vm with referral. HAKEEM DELUNA will await decision to accept.
--- NOTE | 2024-03-21 13:20 | PN.ORTHO_ITS ---
Subjective Subjective Patient is 1 day postop L4-5 laminectomy. Patient transferred from bed to recliner. She continues to have pain which she says is located in her back denies any leg pain. She has walked with physical therapy who said that she is cleared to return home to her independent living. Recommend that she use a walker in place of her rollator while she continues to heal. Seen with Dr. Gardner. Objective Data Objective Data Vital Signs: Vital Signs Temp Pulse Resp BP Pulse Ox O2 Del Method O2 Flow Rate 98.3 F 60 16 158/74 H 88 Nasal Cannula 2 03/21/24 09:00 03/21/24 11:15 03/21/24 11:15 03/21/24 09:00 03/21/24 11:15 03/21/24 11:15 03/21/24 11:15 Oxygen Flow Rate (L/min) 2 Oxygen Delivery Method Nasal Cannula Weight: 217 lb 6 oz Body Mass Index (BMI) 38.5 Intake & Output: Intake and Output for Last 24 Hours 03/19/24 03/20/24 03/21/24 23:59 23:59 23:59 Intake Total 701.25 / 701.25 850 / 850 Output Total 300 / 300 650 / 650 Balance 401.25 / 401.25 200 / 200 Lab / Micro Data 03/21/24 06:14 03/21/24 06:14 Labs: Laboratory Results - last 24 hr 03/20/24 14:41: POC Glucose 123 H 03/20/24 21:46: POC Glucose 246 H 03/21/24 06:04: POC Glucose 165 H 03/21/24 06:14: WBC 13.9 H, RBC 3.68 L, Hgb 10.7 L, Hct 34.1 L, MCV 92.7, MCH 29.1, MCHC 31.4 L, RDW Std Deviation 54.1 H, RDW Coeff of Penny 15.7 H, Plt Count 142 L, MPV 9.7, Sodium 135 L, Potassium 4.3, Chloride 99, Carbon Dioxide 29.0, Anion Gap 7, BUN 37 H, Creatinine 1.63 H, Estim Creat Clear Calc 39.02, Est GFR (MDRD) Af Amer 41 L, Est GFR (MDRD) Non-Af 34 L, BUN/Creatinine Ratio 22.7 H, G lucose 175 H, Calcium 9.4 03/21/24 12:11: POC Glucose 159 H Micro: Microbiology 03/10/24 10:49 Swab (Method) Nasal Screen MRSA/MSSA - Final Physical Exam Narrative Neurological exam of the lower extremities shows 5x5 power. Normal sensations across all dermatomes. Robel is in place over incision. Const alert, oriented x3 and no apparent distress Assessment & Plan Assessment/Plan (1) Status post laminectomy: PLAN: Plan Patient is ready for discharge from orthopedic standpoint. Discussed with medical who will also cleared her for discharge. Discharge from medical includes a 5-day course of cefdinir for a cat scratch/bite on her right arm. She will go home with home PT and OT per case management. Patient also asks for a raised toilet seat for home discharge. Recommend that she use a walker for the first couple of weeks in place of her rollator. Patient at first felt like she did not want to go home today due to her pain however discussed with the patient that she had to work through this pain and had to walk with the pain in order to heal. Encouraged her to go home today. She had not been able to urinate well here and had a straight catheter placed. Encouraged her to make it to the toilet to try to urinate before discharge. However, if needed discussed that a Salazar catheter could be placed upon discharge. Informed patient and her sister and aide that the robel negative pressure wound therapy that is applied over the incision will remain on for about 7 days at which time they can remove and then cover the incision with a Band-Aid and change daily. She will follow-up in the clinic in 2 weeks. Patient is in agreement.
[2024-03-21 15:42] VITALS: PULSE 79; RESP 18
--- NOTE | 2024-03-21 15:50 | CASEMGMT ---
Social Work- SW met with pt to discuss [facility] services. SW introduced self and role. Pt has aides M-R 9:30-1:30. Pt sisters, whom are in the room, also report assisting pt F-Sweeney. ELIZABETH faxed Eda Camargo, pt [facility], discharge information and called to coordinate care. SW left a voicemail. Plan: home with [facility] and resumption of services through [facility] CLAUDIO Faulkner
[2024-03-21 17:39] LABS: Bedside Glucose 203 mg/dL (74-106)
[2024-03-21 18:33] VITALS: BP 128/78; PULSE 70; RESP 18; TEMP 36.8; O2SAT 98
--- NOTE | 2024-03-21 18:55 | PCM.PN.HOSP ---
Reason for Visit Reason for Visit: Diagnoses Spinal stenosis, lumbar region with neurogenic claudication (03/20/24) Encounter for other preprocedural examination (03/20/24) Other specified postprocedural states (03/20/24) Subjective Subjective Patient was seen and examined today, I discussed the case with orthopedic surgery, patient had a cat bite on her right arm that is several days old and is scabbed over, orthopedic surgery was concerned that there still may be a chance of infection from the cat bite, I elected to call in a prescription for cefdinir 300 mg twice daily x 5 days, the area is not reddened, there is a large eschar over the area in the area slightly warm. No discharges noted from the area. Patient is being discharged home today. Objective Data Objective Data Vital Signs: Vital Signs Temp Pulse Resp BP Pulse Ox O2 Del Method O2 Flow Rate 98.3 F 70 18 128/78 H 98 Nasal Cannula 3 03/21/24 18:33 03/21/24 18:33 03/21/24 18:33 03/21/24 18:33 03/21/24 18:33 03/21/24 18:33 03/21/24 18:33 Oxygen Flow Rate (L/min) 3 Oxygen Delivery Method Nasal Cannula Weight: 98.6 kg Body Mass Index (BMI) 38.5 Intake & Output: Intake and Output for Last 24 Hours 03/19/24 03/20/24 03/21/24 23:59 23:59 23:59 Intake Total 701.25 / 701.25 2950 / 2950 Output Total 300 / 300 650 / 650 Balance 401.25 / 401.25 2300 / 2300 Lab / Micro Data 03/21/24 06:14 03/21/24 06:14 Labs: Laboratory Results - last 24 hr 03/20/24 21:46: POC Glucose 246 H 03/21/24 06:04: POC Glucose 165 H 03/21/24 06:14: WBC 13.9 H, RBC 3.68 L, Hgb 10.7 L, Hct 34.1 L, MCV 92.7, MCH 29.1, MCHC 31.4 L, RDW Std Deviation 54.1 H, RDW Coeff of Penny 15.7 H, Plt Count 142 L, MPV 9.7, Sodium 135 L, Potassium 4.3, Chloride 99, Carbon Dioxide 29.0, Anion Gap 7, BUN 37 H, Creatinine 1.63 H, Estim Creat Clear Calc 39.02, Est GFR (MDRD) Af Amer 41 L, Est GFR (MDRD) Non-Af 34 L, BUN/Creatinine Ratio 22.7 H, Glucose 175 H, Calcium 9.4 03/21/24 12:11: POC Glucose 159 H 03/21/24 17:18: POC Glucose 203 H Micro: Microbiology 03/10/24 10:49 Swab (Method) Nasal Screen MRSA/MSSA - Final Physical Exam Const alert, oriented x3 and no apparent distress General Appearance: cooperative, well kempt and well developed Orientation / Consciousness: awake, oriented to person, oriented to place and oriented to time HEENT normocephalic and moist oral mucous membranes Eyes PERRL, EOMs intact bilaterally and conjunctivae normal Neck supple, no JVD, thyroid normal and no carotid bruits General: trachea midline Resp normal respiratory effort, no retractions, no use of accessory muscles and clear to auscultation bilaterally Auscultation: Negative for rales, rhonchi or wheezes Cardio regular rate, regular rhythm, S1 normal heart sound, S2 normal heart sound, no murmurs, no rub and no gallops GI normal to inspection, nondistended, normoactive bowel sounds, soft to palpation, non-tender and non-distended Extremity no clubbing, cyanosis or edema Skin Skin Narrative: There is an eschared area approximately 3 to 4 cm in length and 2 cm in diameter over the dorsum of the right forearm, this area does not have any discharge, it is not reddened, it is slightly warm to the touch Neuro oriented x3, CN's II-XII intact bilaterally, moves all extremities, no focal motor deficits and no sensory deficits noted Sensorium / Orientation: awake and alert Speech: speech normal Psych affect normal Assessment & Plan Assessment/Plan (1) History of COPD: PLAN: Plan 1. COPD-this appears stable and patient will resume her medications when she goes home #2 hypothyroidism-patient will continue her Synthroid as an outpatient #3 degenerative joint disease of the lumbar spine #4 right forearm eschar-again I have elected to call in a prescription for the patient at [facility] here in town for cefdinir 300 mg 1 twice daily x 5 days. Total clinical time spent by myself addressing the patient's medical issues, reviewing all of her data, and collaborating with patient's care team: 25 minutes Charges/Coding Visit Charges Inpatient E&M: 92819 Subs Hosp L2
--- NOTE | 2024-03-22 11:59 | CASEMGMT ---
Received tc from Monse from [facility] who states that she just realized that they do not service [facility] for therapy services. She states she cannot accept the referral. She states she will notify the pt. TC to Tommy, left message to see if they will accept referral as no answer or call back was received yesterday. Received tc back from Danielle who states that they can accept for PT and the OT will be out some time. TC to pt sister Elvira, she is aware of this and agreeable to them coming out. She states that she is at a dr appt and the patient will be agreeable as well. She states she did not receive the information that [facility] was unable to come out. She states last she knew, they would be calling her with an appt. TC back to Danielle at [facility] to proceed with referral. Provided with pt sister's phone number to contact for set up of appt. TC to Monse at [facility] to make aware another agency was found.
== END 2024-03-21 18:41 | disposition home health service (06) ==
LOC: SDC 15:52 → MS3 15:52
PROVIDERS: Anesthesiology; Student in an Organized Health Care Education/Training Program; Admitting Provider Orthopaedic Surgery Orthopaedic Surgery of the Spine; PCP Nurse Practitioner Family; Referring Provider Orthopaedic Surgery Orthopaedic Surgery of the Spine; Visit Provider Orthopaedic Surgery Orthopaedic Surgery of the Spine
PROC: (CPT 63030; principal; 2024-03-20 10:45)
DX: M48.062 Spinal stenosis, lumbar region with neurogenic claudication (principal); F25.0 Schizoaffective disorder, bipolar type; I13.0 Hypertensive heart and chronic kidney disease with heart failure and stage 1 through stage 4 chronic kidney disease, or unspecified chronic kidney disease; I50.9 Heart failure, unspecified; J43.9 Emphysema, unspecified; I48.0 Paroxysmal atrial fibrillation; G40.909 Epilepsy, unspecified, not intractable, without status epilepticus; E11.22 Type 2 diabetes mellitus with diabetic chronic kidney disease; E11.40 Type 2 diabetes mellitus with diabetic neuropathy, unspecified; E11.51 Type 2 diabetes mellitus with diabetic peripheral angiopathy without gangrene; Z79.4 Long term (current) use of insulin; M47.14 Other spondylosis with myelopathy, thoracic region; F17.210 Nicotine dependence, cigarettes, uncomplicated; Z68.38 Body mass index [BMI] 38.0-38.9, adult; K21.9 Gastro-esophageal reflux disease without esophagitis; G24.01 Drug induced subacute dyskinesia; N18.9 Chronic kidney disease, unspecified; E66.9 Obesity, unspecified; M43.16 Spondylolisthesis, lumbar region; Z79.84 Long term (current) use of oral hypoglycemic drugs; E78.00 Pure hypercholesterolemia, unspecified; Z79.01 Long term (current) use of anticoagulants; S40.811D Abrasion of right upper arm, subsequent encounter; Z79.899 Other long term (current) drug therapy; Z79.51 Long term (current) use of inhaled steroids; Z79.890 Hormone replacement therapy; F17.290 Nicotine dependence, other tobacco product, uncomplicated; R29.6 Repeated falls; W55.03XD Scratched by cat, subsequent encounter
CPT/HCPCS: 63047; 00630; 36415; 72100; 76000; 80048; 82962; 83735; 84443; 85025; 85027; 85730; 86703; 86706; 86708; 86803; 86850; 86900; 86901; 87077; 87081; 94640; 94762; 96365; 96366; 97162; 97166; 99221; A4216; G0378; J2405; J3475

== ENCOUNTER → 2024-04-14 | Outpatient (CLI) | payer MEDICARE, MEDICAID, SELFPAY ==
[2024-04-14 15:29] LABS: ALB/GLOB Ratio 1.1 RATIO (0.9-2.4); AST(SGOT) 11 U/L (15-37); Alanine Aminotransfer ALT/SGPT 13 U/L (13-56); Albumin, Serum 3.6 g/dL (3.2-5.0); Alkaline Phosphatase 57 U/L (45-117); Anion Gap 7 (5-15); BUN 45 mg/dL (7-18); BUN/Creat Ratio 28.8 RATIO (10-20); Calcium,Total 9.4 mg/dL (8.5-10.1); Chloride 98 mmol/L (98-107); Creatinine, Serum 1.56 mg/dL (0.55-1.02); EST Glomerular Filtration Rate 36 mL/min (>60); Est Glom Filt Rate - Afr Amer 43 mL/min (>60); Globulin 3.4 g/dL (2.2-4.2); Glucose 177 mg/dL (74-106); Potassium 4.2 mmol/L (3.5-5.1); Sodium Level 137 mmol/L (136-145)
== END | disposition home or self-care (01) ==
PROVIDERS: PCP Nurse Practitioner Family
DX: N18.32 Chronic kidney disease, stage 3b (principal)
CPT/HCPCS: 36415; 80053

== ENCOUNTER 2024-04-23 08:24 | Emergency (ER) | payer MEDICARE, MEDICAID, SELFPAY ==
[2024-04-23 08:25] VITALS: BP 122/85; PULSE 115; RESP 20; TEMP 36.6; O2SAT 91
[2024-04-23 09:18] LABS: Absolute Lymphocyte Count 1.17 X10^3/uL (0.83-4.51); Absolute Neutrophil Count 6.8 X10^3/uL (2.0-7.7); Basophil# 0.04 X10^3/uL; Basophil% 0.4 % (0-1); Eosinophil# 0.45 X10^3/uL; Eosinophils% 4.9 % (0-5); Hematocrit 34.2 % (37-47); Hemoglobin 10.9 g/dL (12.0-15.0); Lymphocyte # 1.17 X10^3/ul (0.83-4.51); Lymphocyte % 12.8 % (19-41); Mean Corp Hgb Conc 31.9 g/dL (32-36); Mean Corpuscular Hgb 30.7 pg (27.0-32.0); Mean Corpuscular Volume 96.3 fL (81-99); Mean Platelet Vol. 9.7 fl (6.2-12.0); Monocyte# 0.65 X10^3/uL; Monocyte% 7.1 % (0-10); NRBC Flagged by Analyzer 0 % (0-5); Neutrophil # 6.81 X10^3/uL (2.7-7.7); Neutrophil % 74.3 % (47-70); Platelet Count 152 K/mm3 (150-450); RBC Distribution Width CV 14.6 % (11.6-14.6); Red Blood Count 3.55 M/mm3 (4.2-5.4); White Blood Count 9.2 K/mm3 (4.4-11.0)
[2024-04-23 10:15] LABS: ALB/GLOB Ratio 0.9 RATIO (0.9-2.4); AST(SGOT) 12 U/L (15-37); Alanine Aminotransfer ALT/SGPT 10 U/L (13-56); Albumin, Serum 3.1 g/dL (3.2-5.0); Alkaline Phosphatase 63 U/L (45-117); Anion Gap 7 (5-15); BUN 33 mg/dL (7-18); BUN/Creat Ratio 19.9 RATIO (10-20); Calcium,Total 9.6 mg/dL (8.5-10.1); Chloride 99 mmol/L (98-107); Creatinine, Serum 1.66 mg/dL (0.55-1.02); EST Glomerular Filtration Rate 33 mL/min (>60); Est Glom Filt Rate - Afr Amer 40 mL/min (>60); Globulin 3.5 g/dL (2.2-4.2); Glucose 191 mg/dL (74-106); Potassium 3.8 mmol/L (3.5-5.1); Protein, Total 6.6 g/dL (6.4-8.2); Sodium Level 138 mmol/L (136-145)
--- NOTE | 2024-04-23 10:22 | RAD_ITS ---
PROCEDURE: CHEST PA AND LATERAL REASON FOR EXAM: 63-year-old female, left lung base rales, edema and orthopnea. TECHNIQUE: Frontal and lateral views of the chest. COMPARISON: CT chest 09/14/2023. FINDINGS: Right chest wall IJ central venous catheter with tip overlying the right atrium. Heart size is mildly enlarged with mild pulmonary venous congestion. Trace left pleural effusion. No focal consolidation or pneumothorax. Degenerative changes are identified within the thoracic spine. RAD/Chest PA and Lateral IMPRESSION: Findings of mild CHF/volume overload including trace left pleural effusion. Reading Location: [id number]
[2024-04-23 10:24] VITALS: BP 138/116; PULSE 74; RESP 15; O2SAT 100
[2024-04-23 10:42] LABS: BNP,B-Type NATRIURETIC PEPTIDE 38.7 pg/mL (0-100)
[2024-04-23 10:45] LABS: Troponin-I HS 7 pg/mL (3.0-54.0)
--- NOTE | 2024-04-23 11:29 | EX.ED.DYSGE1 ---
HPI History of Present Illness Chief Complaint: Edema Detail of Chief Complaint: Edema concern for cellulitis Informant: patient Onset/Context/Timing Onset: Days Context: Gradual Onset Timing: Continuous Quality: Swelling of the legs over the past several days to week with discoloration Location: Right and left legs Current Severity: Moderate Maximum Severity: Moderate Worsened by: Nothing per patient Relieved by: Nothing per patient Associated Symptoms Associated Symptoms: No increased orthopnea Narrative Narrative: Patient is a 63-year-old woman. She has multiple medical problems which include daytime hypersomnolence, hypoxia, thrombocytopenia, BMI greater than 40, dyslipidemia, bilateral lower extremity edema, smoker, history of congestive heart failure, chronic atrial fibrillation on Coumadin, essential hypertension, history of COPD, history of type 2 diabetes on long-term anticoagulant. She also has history of schizoaffective disorder. Patient presents with increasing swelling of her feet and legs. She is now noted discoloration and is concerned that she has cellulitis. She denies fever, chills night sweats. Patient is not compliant with her CPAP. Patient denies headache, visual, ocular auditory symptoms. Patient Nuys ear symptoms. He has no drainage or pain. She denies rhinorrhea, congestion, postnasal drainage sore throat. She denies cough. She has stable orthopnea. She denies PND. She complains of this intermittent transient anterior chest pain. She denies associated symptoms with this chest pain. She denies radiation with the chest pain. She denies abdominal pain, nausea, vomiting or diarrhea. She denies urologic symptoms. Patient admits that she has been sitting a lot and her legs have been dangling. Prior similar symptoms: Yes (With CHF and cellulitis) [facility] Medical History Wears hearing aid Post-menopausal Depression Anxiety History of steroid therapy Walker as ambulation aid Kidney stones Arthritis Back pain History of IBS Former smoker COPD (chronic obstructive pulmonary disease) Shortness of breath on exertion Thyroid disease History of heart attack History of stress test History of echocardiogram Low platelet count Anemia History of ESBL E. coli infection Morbid obesity with BMI of 40.0-44.9, adult Congestive heart failure Peripheral edema History of CHF (congestive heart failure) History of atrial fibrillation History of hypertension Chest pain of uncertain etiology Bradycardia History of tobacco use History of diabetes mellitus, type II History of COPD Acute hypotension Pulmonary hypertension, secondary Abdominal ascites Diverticulitis large intestine w/o perforation or abscess w/bleeding Pericardial effusion with cardiac tamponade Chronic kidney disease History of cardiac arrest Chest pain Wears glasses Wears dentures Substance abuse Alcohol use Rash Gout High cholesterol PVD (peripheral vascular disease) Easy bruising Seizures Dietary restriction Gastric reflux Injury of back Vapes nicotine containing substance Fall History of pain when walking History of edema Insomnia Major depression On home oxygen therapy Emphysema, unspecified Neuropathy Cardiology follow-up encounter History of ulceration DKA (diabetic ketoacidosis) Cardiac arrest assisted current use of anticoagulant Encounter for infusaport central venous catheter removal Lichen sclerosus Macular degeneration Essential hypertension Decreased left ventricular function Paroxysmal atrial fibrillation Diverticulosis Migraine Iron deficiency anemia COPD (chronic obstructive pulmonary disease) Port-A-Cath in place Acid reflux IBS (irritable bowel syndrome) CHF (congestive heart failure) Neuropathy Kidney failure Hypothyroid Schizoaffective disorder, bipolar type Emphysema lung Diabetes Heart attack Home Medications ?Medication ?Instructions ?Recorded ?Last Taken ?Type apixaban 5 mg tablet (Eliquis) 5 mg PO BID blood thinner 12/24/22 03/15/24 History Held on 03/21/24. Instructions: Resume on 03/23/24. atorvastatin 20 mg tablet 20 mg PO DAILY cholesterol 12/24/22 07/27/23 History gabapentin 300 mg capsule 300 mg PO TID nerve pain 12/25/22 07/27/23 History trazodone 100 mg tablet 100 mg PO QHS sleep 01/01/23 07/26/23 History aripiprazole 20 mg tablet 20 mg PO DAILY mental health 03/09/23 03/18/24 History fluticasone propionate 50 1 spray intranasal DAILY PRN 04/27/23 Unknown History mcg/actuation nasal allergy symptoms spray,suspension divalproex 500 mg tablet,extended 500 mg PO QHS seizure 07/25/23 07/27/23 History release 24 hr levothyroxine 100 mcg tablet 100 mcg PO DAILY thyroid 07/25/23 07/27/23 History oxybutynin chloride 5 mg 5 mg PO DAILY bladder 07/25/23 07/27/23 History tablet,extended release 24 hr insulin glargine 100 unit/mL (3 20 unit subcut DAILY diabetes 10/13/23 Unknown History mL) subcutaneous pen (Lantus Solostar U-100 Insulin) clotrimazole-betamethasone 1 1 applic topical BID skin 12/24/23 Unknown History %-0.05 % topical cream irritation diclofenac sodium 1 % topical gel 2 g topical ONCE 12/24/23 Unknown History empagliflozin 25 mg tablet 25 mg PO QAM diabetes 12/24/23 03/17/24 History (Jardiance) epinephrine 0.3 mg/0.3 mL 0.3 mg IM ONCE allergic reaction 12/24/23 Unknown History injection, auto-injector (EpiPen 2-Wayne) meloxicam 7.5 mg tablet 7.5 mg PO QDAY pain 12/24/23 Unknown History pantoprazole 40 mg tablet,delayed 40 mg PO QDAY acid reflux 12/24/23 Unknown History release nystatin 100,000 unit/gram topical 1 applic topical BID skin 01/06/24 Unknown History powder irritation valbenazine 80 mg capsule 80 mg PO HS 01/06/24 Unknown History (Ingrezza) buprenorphine 10 mcg/hour weekly 1 patch topical QWEEK 03/07/24 03/19/24 History transdermal patch docusate sodium 100 mg capsule 100 mg PO BID PRN constipation 03/07/24 Unknown History (Colace) furosemide 20 mg tablet 20 mg PO DAILY 03/07/24 Unknown History nicotine 1 patch topical DAILY 03/07/24 Unknown History 21mg/24hr-14mg/24hr-7mg/24hr daily transderm patches,sequentl tirzepatide 5 mg/0.5 mL 5 mg subcut QWEEK 03/07/24 03/12/24 History subcutaneous pen injector (Joseph) tobramycin 0.3 %-dexamethasone 1 drp ophthalmic (eye) .Q4-6H 03/07/24 Unknown History 0.05 % eye drops,suspension (Tobradex ST) linaclotide 145 mcg capsule 145 mcg PO QAM #60 caps 03/10/24 Unknown Rx (Linzess) sodium sul 1.479 gram-potas ch See Rx Instructions PO PER PKG DIR 03/10/24 Unknown Rx 0.188 gram-magnes sul 0.225 gram #24 tabs tablet (Sutab) methocarbamol 500 mg tablet 500 mg PO 4X/DAY PRN Muscle 03/16/24 Unknown Rx pain/spasm #40 tabs sennosides 8.6 mg-docusate sodium 2 tab PO BID PRN constipation #30 03/21/24 Unknown Rx 50 mg tablet (Stimulant Laxative tabs Plus) hydrocodone-acetaminophen 5-325mg 1 tab PO Q6H PRN pain 5 days #20 03/28/24 Unknown Rx 5mg-325mg tabs methocarbamol 500 mg tablet 750 mg (1.5 x 500 mg) PO TID PRN 03/29/24 Unknown Rx pain/spasms #30 tabs fluticasone fur. 100 mcg-umeclid 1 inh inhalation Q24H #60 ea 03/31/24 Unknown Rx 62.5 mcg-vilant 25 mcg inhalat.powder (Trelegy Ellipta) prednisone 10 mg tablet 10 mg PO DIRECTED #13 tabs 03/31/24 Unknown Rx Allergy/AdvReac Type Severity Reaction Status Date / Time aspirin Allergy Mild Hives Verified 04/23/24 08:25 erythromycin base Allergy Mild Hives Verified 04/23/24 08:25 Penicillins Allergy Mild Hives Verified 04/23/24 08:25 polyethylene glycol 3350 Allergy Mild Nausea/Vom/ Verified 04/23/24 08:25 (From Miralax) Diarrhea tramadol Allergy Mild Hives Verified 04/23/24 08:25 tomato Allergy Food Verified 04/23/24 08:25 Allergy Family History Mother Heart disease Hypertension Cancer Father Brain aneurysm age 40 CVA (cerebral vascular accident) Cancer Brother Colon cancer Surgical History Hx of surgical procedure History of bilateral knee replacement Hx of vein stripping Hx of toe surgery History of lithotripsy History of delivery History of bilateral cataract extraction History of cholecystectomy H/O: hysterectomy Social History household members: caregiver Smoking Status: Former smoker Tobacco: How many years used: 18 Electronic Cigarette Use: with nicotine second hand exposure: No alcohol intake: never substance use type: does not use caffeine: Yes ROS ROS ED Constitutional Constitutional ED: Denies chills, fever(s), subjective, sweats or weight loss Eyes Eyes: Denies blurry vision, change in vision or diplopia ENT ENT ED: Denies ear pain, rhinorrhea or sore throat Cardiovascular Cardiovascular: Reports chest pain and orthopnea; Denies palpitations, paroxysmal nocturnal dyspnea or racing heartbeat Respiratory/Chest Respiratory/Chest: Reports orthopnea; Denies cough, dyspnea, dyspnea on exertion or paroxysmal nocturnal dyspnea Gastrointestinal Gastrointestinal: Denies abdominal pain, melena, nausea or vomiting Genitourinary Genitourinary ED: Denies dysuria, hematuria or urinary frequency Musculoskeletal Musculoskeletal: Denies back pain Integumentary Denies rash Neurologic Neurologic: Reports weakness; Denies headache(s) or paresthesias Psychiatric Psychiatric: Reports depression; Denies anxiety Endocrine Endocrinology: Reports other Details: Based on medication list patient also has history of hypothyroidism. ; Denies cold intolerance or heat intolerance Hematologic/Lymphatic Hematologic/Lymphatic: Reports systems reviewed and no addt'l complaints, except as documented Allergic/Immunologic Allergic/Immunologic ED: Denies mouth swelling or tongue swelling EXAM Physical Exam Const Vital Signs: 04/23/24 08:25 04/23/24 09:09 04/23/24 10:24 Temperature 97.9 F Temperature Source Oral Pulse Rate 115 H 74 Respiratory Rate 20 H 15 Respiratory Pattern Normal Blood Pressure 122/85 H 138/116 H Blood Pressure Mean 97 123 Pulse Ox 91 100 Oxygen Delivery Method Room Air 04/23/24 12:00 Temperature Temperature Source Pulse Rate 78 Respiratory Rate 18 Respiratory Pattern Blood Pressure 135/65 H Blood Pressure Mean 88 Pulse Ox 92 Oxygen Delivery Method Room Air BMI is 44.9. Vital signs are remarkable for initially a rapid heart rate. Positive well nourished and well developed General Appearance ED: well developed and NAD HEENT Reports moist mucous membranes HEENT Narrative: Head is atraumatic no cephalic. Ears normal. Nares patent. Posterior pharynx is normal. Eyes PERRL and EOMs intact bilaterally General Eye ED: Negative for pale conjunctiva Neck no lymphadenopathy, supple and no JVD Neck Narrative: Difficult assess for JVD date based on body habitus. Resp normal respiratory effort and No clear to auscultation bilaterally Resp Narrative: Rales left base only Auscultation: Negative for rhonchi, wheezes or diminished lung sounds Cardio regular rate, S1 normal heart sound, S2 normal heart sound and no murmurs Rhythm: abnormal rhythm irregularly irregular GI normal to inspection, nondistended, normoactive bowel sounds, non-tender, non-distended and no masses; Negative for hepatosplenomegaly Back/Spine no CVA tenderness Extremity Extremity Narrative: Patient has bilateral pitting edema with venous stasis dermatitis. There is no leg vein distention, asymmetry, palpable cords tenderness on the distribution deep venous system. Patient complains of pain anterior right and left leg and dorsum of the feet. Unable to palpate pulses because of the edema. Neuro oriented x3 and CN's II-XII intact bilaterally Sensorium / Orientation: alert Psych mental status grossly normal Skin Skin Narrative: Venous stasis dermatitis. MDM MDM MDM Narrative Medical decision making narrative: In light of patient's multiple medical problems and history of coronary disease we will obtain troponin. Because of the rales left base will obtain chest x-ray and BNP to assess for pneumonia versus CHF versus atelectasis due to poor inspiratory effort. CBC to assess for elevated white count and evaluate for anemia since she appears pale even though her conjunctive is pink. Will obtain electrolyte panel to assess BUN/creatinine and glucose since she is diabetic. Lab Data Attestation: I reviewed the patient's lab results. Lab results narrative: CBC reveals mild anemia with normal indices. Comprehensive metabolic panel is remarkable for BUN and creatinine are 33 and 1.66. CO2 is slightly elevated. Troponin is normal with days of symptoms. BNP is normal at 38.7. Albumin is slightly lower than normal at 3.1. H&H is at patient's baseline. BUN and creatinine are at baseline as well. Albumin is slightly lower than baseline. Labs: Laboratory Results - last 24 hr 04/23/24 09:10 WBC 9.2 RBC 3.55 L Hgb 10.9 L Hct 34.2 L MCV 96.3 MCH 30.7 MCHC 31.9 L RDW Std Deviation 52.0 H RDW Coeff of Penny 14.6 Plt Count 152 MPV 9.7 Immature Gran % (Auto) 0.500 Neut % (Auto) 74.3 H Lymph % (Auto) 12.8 L [place] % (Auto) 7.1 Eos % (Auto) 4.9 Baso % (Auto) 0.4 Absolute Neuts (auto) 6.8 Absolute Lymphs (auto) 1.17 Nucleated RBC % 0 Sodium 138 Potassium 3.8 Chloride 99 Carbon Dioxide 33.0 H Anion Gap 7 BUN 33 H Creatinine 1.66 H Est GFR (MDRD) Af Amer 40 L Est GFR (MDRD) Non-Af 33 L BUN/Creatinine Ratio 19.9 Glucose 191 H Calcium 9.6 Total Bilirubin 0.30 AST 12 L ALT 10 L Alkaline Phosphatase 63 Troponin I High Sens 7 B-Natriuretic Peptide 38.7 Total Protein 6.6 Albumin 3.1 L Globulin 3.5 Albumin/Globulin Ratio 0.9 Radiography Chest X-Ray - ED: 2 View and Read by ED Physician (Limited inspiratory volume. Patient has a port noted right side. Mediastinum is normal. Cardiac silhouette size is normal. There are no curly B-lines. In my opinion there is no cephalization. There is no evidence of effusion either. Osseous structures reveal no acute process.) Diagnostic Testing: Clinical Impression(s) from Imaging Studies Chest X-Ray 04/23/24 10:22 IMPRESSION: Findings of mild CHF/volume overload including trace left pleural effusion. Reading [facility] Radiology report was reviewed. Radiologist feels there is findings consistent with mild CHF. In light of the fact the patient has a BNP of 35 has no orthopnea and history is consistent with lymphedema I am in disagreement with this read. Discharge Plan Triage Chief Complaint: Edema ED Provider: Daquan Quintanilla Dx/Rx/DC Orders Clinical Impression: Dependent lymphedema due to impaired mobility, Paroxysmal atrial fibrillation, Schizoaffective disorder, bipolar type, Hypothyroid, History of diabetes mellitus, type II, History of hypertension, History of atrial fibrillation, History of chronic CHF, Non-cardiac chest pain Instructions: ED Peripheral Edema, Bilateral Prescriptions: No Action atorvastatin 20 mg tablet 20 mg PO DAILY Eliquis 5 mg tablet 5 mg PO BID Patient Comments: STOP 2-3 DAYS PRIOR TO SURGERY gabapentin 300 mg capsule 300 mg PO TID fluticasone propionate 50 mcg/actuation spray,suspension 1 spray intranasal DAILY PRN (Reason: allergy symptoms) Patient Comments: instill 2 sprays in each nostril daily prednisone 10 mg tablet 10 mg PO DIRECTED Qty: 13 0RF Rx Instructions: Take 3 tablets daily for 3 days, then 2 tablets daily for 2 days. Trelegy Ellipta 100-62.5-25 mcg blister with device 1 inh inhalation Q24H Qty: 60 5RF nystatin 100,000 unit/gram powder 1 applic topical BID clotrimazole-betamethasone 1-0.05 % cream 1 applic topical BID epinephrine [EpiPen 2-Wayne] 0.3 mg/0.3 mL auto-injector 0.3 mg IM ONCE Rx Instructions: as a single dose; may repeat once meloxicam 7.5 mg tablet 7.5 mg PO QDAY Patient Comments: STOP 5-7 DAYS PRIOR TO OR Jardiance 25 mg tablet 25 mg PO QAM Patient Comments: PCP WANTS PT TO STOP 3-4 DAYS PRIOR TO SURGERY diclofenac sodium 1 % gel 2 g topical ONCE Rx Instructions: apply to single elbow, wrist or hand; for hand includes palm/fingers/back of hand pantoprazole 40 mg tablet,delayed release (DR/EC) 40 mg PO QDAY Ingrezza 80 mg capsule 80 mg PO HS buprenorphine 10 mcg/hour patch weekly 1 patch topical QWEEK Linzess 145 mcg capsule 145 mcg PO QAM Qty: 60 2RF Sutab 1.479-0.188- 0.225 gram tablet See Rx Instructions PO PER PKG DIR Qty: 24 0RF Rx Instructions: PO PER PKG DIR trazodone 100 mg tablet 100 mg PO QHS Patient Comments: TAKE 1 TABLET BY MOUTH EVERY DAY AT NIGHT aripiprazole 20 mg tablet 20 mg PO DAILY Patient Comments: TAKE ONE TABLET BY MOUTH DAILY AT 9AM divalproex 500 mg tablet extended release 24 hr 500 mg PO QHS levothyroxine 100 mcg tablet 100 mcg PO DAILY oxybutynin chloride 5 mg tablet extended release 24hr 5 mg PO DAILY insulin glargine [Lantus Solostar U-100 Insulin] 100 unit/mL (3 mL) insulin pen 20 unit subcut DAILY Mounjaro 5 mg/0.5 mL pen injector 5 mg subcut QWEEK Patient Comments: LAST DOSE 03/12/2024 furosemide 20 mg tablet 20 mg PO DAILY nicotine 21-14-7 mg/24 hr patch, TD daily, sequential 1 patch topical DAILY Tobradex ST 0.3-0.05 % drops,suspension 1 drp ophthalmic (eye) .Q4-6H docusate sodium [Colace] 100 mg capsule 100 mg PO BID PRN (Reason: constipation) sennosides-docusate sodium [Stimulant Laxative Plus] 8.6-50 mg Tablet 2 tab PO BID PRN (Reason: constipation) Qty: 30 0RF methocarbamol 500 mg tablet 500 mg PO 4X/DAY PRN (Reason: Muscle pain/spasm) Qty: 40 0RF hydrocodone-acetaminophen 5-325 mg tablet 1 tab PO Q6H PRN (Reason: pain) 5 Days Qty: 20 0RF methocarbamol 500 mg tablet 750 mg PO TID PRN (Reason: pain/spasms) Qty: 30 0RF Primary Care Provider: Eric Marion Referrals: Eric Marion, [employer] [Primary Care Provider] - 3-5 Days if not improving Activity Restrictions/Additional Instructions: 1. You need to be more active. You need to get up and walk around. 2. When you are sitting you need to elevate your toes above your nose otherwise you will have increased swelling. Print Language: Montenegrin Disposition Disposition: Home, Self Care
[2024-04-23 12:00] VITALS: BP 135/65; PULSE 78; RESP 18; O2SAT 92
[2024-04-23 13:24] VITALS: BP 116/89; PULSE 78; RESP 18; TEMP 36.9; O2SAT 92
== END 2024-04-23 13:26 | disposition home or self-care (01) ==
PROVIDERS: Emergency Provider Emergency Medicine; PCP Nurse Practitioner Family; Visit Provider Emergency Medicine
DX: I89.0 Lymphedema, not elsewhere classified (principal); F25.0 Schizoaffective disorder, bipolar type; I13.0 Hypertensive heart and chronic kidney disease with heart failure and stage 1 through stage 4 chronic kidney disease, or unspecified chronic kidney disease; I50.9 Heart failure, unspecified; J43.9 Emphysema, unspecified; I48.0 Paroxysmal atrial fibrillation; I48.20 Chronic atrial fibrillation, unspecified; E11.40 Type 2 diabetes mellitus with diabetic neuropathy, unspecified; E11.22 Type 2 diabetes mellitus with diabetic chronic kidney disease; Z74.09 Other reduced mobility; D69.6 Thrombocytopenia, unspecified; E03.9 Hypothyroidism, unspecified; E78.00 Pure hypercholesterolemia, unspecified; Z87.891 Personal history of nicotine dependence; N18.9 Chronic kidney disease, unspecified; Z79.01 Long term (current) use of anticoagulants; R07.89 Other chest pain
CPT/HCPCS: 71046; 80053; 83880; 84484; 85025; 93005; 99285; A4216

== ENCOUNTER → 2024-04-26 | Outpatient (CLI) | payer MEDICARE, MEDICAID, SELFPAY ==
[2024-04-26 12:49] LABS: Absolute Lymphocyte Count 1.45 X10^3/uL (0.83-4.51); Absolute Neutrophil Count 10.3 X10^3/uL (2.0-7.7); Basophil# 0.06 X10^3/uL; Basophil% 0.5 % (0-1); Eosinophil# 0.54 X10^3/uL; Eosinophils% 4.1 % (0-5); Hematocrit 37.3 % (37-47); Hemoglobin 11.6 g/dL (12.0-15.0); Lymphocyte # 1.45 X10^3/ul (0.83-4.51); Lymphocyte % 10.9 % (19-41); Mean Corp Hgb Conc 31.1 g/dL (32-36); Mean Corpuscular Hgb 30.3 pg (27.0-32.0); Mean Corpuscular Volume 97.4 fL (81-99); Mean Platelet Vol. 9.6 fl (6.2-12.0); Monocyte% 6.8 % (0-10); NRBC Flagged by Analyzer 0 % (0-5); Neutrophil # 10.29 X10^3/uL (2.7-7.7); Neutrophil % 77.4 % (47-70); Platelet Count 201 K/mm3 (150-450); RBC Distribution Width CV 14.6 % (11.6-14.6); RBC Distribution Width SD 52.2 fl (35.1-43.9); Red Blood Count 3.83 M/mm3 (4.2-5.4); White Blood Count 13.3 K/mm3 (4.4-11.0)
[2024-04-26 12:52] LABS: Color, Urine Yellow (Yellow); Glucose, Dipstick 100 mg/dl (Normal); Ketone-Dipstick Negative (Negative); Leukocyte Esterase-Dipstick 25 /ul (Negative); Nitrite-Dipstick Negative (Negative); Occult Blood-Urine Negative /ul (Negative); Protein-Dipstick 15 mg/dl (Negative); Urine Bilirubin Dipstick Negative (Negative); Urine Clarity Clear (Clear); Urine Urobilinogen Normal (Normal)
[2024-04-26 13:09] LABS: ALB/GLOB Ratio 0.8 RATIO (0.9-2.4); AST(SGOT) 16 U/L (15-37); Alanine Aminotransfer ALT/SGPT 19 U/L (13-56); Albumin, Serum 3.6 g/dL (3.2-5.0); Alkaline Phosphatase 75 U/L (45-117); Anion Gap 10 (5-15); BUN 44 mg/dL (7-18); BUN/Creat Ratio 23.8 RATIO (10-20); Calcium,Total 10.3 mg/dL (8.5-10.1); Chloride 99 mmol/L (98-107); Creatinine, Serum 1.85 mg/dL (0.55-1.02); EST Glomerular Filtration Rate 29 mL/min (>60); Est Glom Filt Rate - Afr Amer 35 mL/min (>60); Ferritin 216 ng/mL (8-252); Globulin 4.3 g/dL (2.2-4.2); Glucose 118 mg/dL (74-106); Iron 45 ug/dL (50-170); Iron Binding Capacity,Total 323 ug/dL (250-450); PERCENT IRON SATURATION 13.9 % (15.0-55.0); Potassium 3.9 mmol/L (3.5-5.1); Protein, Total 7.9 g/dL (6.4-8.2); Sodium Level 138 mmol/L (136-145)
[2024-04-26 17:22] LABS: Xtra Tube EP Lab EXTRA TUBE
== END | disposition home or self-care (01) ==
LOC: VSLAB 09:10
PROVIDERS: Nurse Practitioner Family; PCP Nurse Practitioner Family; Visit Provider Nurse Practitioner Family
DX: R22.43 Localized swelling, mass and lump, lower limb, bilateral (principal); D50.0 Iron deficiency anemia secondary to blood loss (chronic)
CPT/HCPCS: 36415; 80053; 81002; 82728; 83540; 83550; 85025; 87086; 87088

== ENCOUNTER 2024-05-03 16:10 | Inpatient (IN) | payer MEDICARE, MEDICAID, SELFPAY ==
[2024-05-03] VITALS (7 sets, daily range): BP systolic 94–171; BP diastolic 56–144; PULSE 51–77; RESP 14–18; TEMP 36.4–36.6; O2SAT 84–96; BMI 41.0
--- NOTE | 2024-05-03 19:27 | EKG12_ITS ---
Test Reason : DYSRHYTHMIA Blood Pressure : */* mmHG Vent. Rate : 66 BPM Atrial Rate : 66 BPM P-R Int : 146 ms QRS Dur : 80 ms QT Int : 426 ms P-R-T Axes : 12 29 39 degrees QTcB Int : 446 ms Normal sinus rhythm Normal ECG Confirmed by Nicho Mcgraw ([id number]), editor trade journal ADRI ORTIZ ([id number]) on 05/04/2024 9:32:35 AM Referred By: MARISELA Confirmed By: Nicho Mcgraw
--- NOTE | 2024-05-03 19:34 | RAD_ITS ---
PROCEDURE: Portable upright chest radiograph, one view REASON FOR EXAM: Chest pain TECHNIQUE: Portable upright chest radiograph was obtained. COMPARISON: 04/23/2024 FINDINGS: The cardiomediastinal silhouette is stable. The bones are osteopenic, grossly intact. Right Ogpayz-C-Mnym remains. No pneumothorax, focal airspace consolidation, or sizable pleural effusion. Similar mild elevation right hemidiaphragm. Similar prominent fat pad at the left lung base compared to 07/27/2023. RAD/Chest 1 View (Portable) IMPRESSION: No acute cardiopulmonary process is demonstrated. If there is persistent pain or clinical concern, short-term follow-up chest CT evaluation may be considered. Reading Location: [facility]
[2024-05-03 19:45] LABS: Absolute Lymphocyte Count 1.05 X10^3/uL (0.83-4.51); Absolute Neutrophil Count 5.5 X10^3/uL (2.0-7.7); Basophil# 0.05 X10^3/uL; Basophil% 0.6 % (0-1); Eosinophil# 0.54 X10^3/uL; Eosinophils% 6.9 % (0-5); Hematocrit 34.3 % (37-47); Hemoglobin 10.8 g/dL (12.0-15.0); Lymphocyte # 1.05 X10^3/ul (0.83-4.51); Lymphocyte % 13.5 % (19-41); Mean Corp Hgb Conc 31.5 g/dL (32-36); Mean Corpuscular Volume 98.6 fL (81-99); Mean Platelet Vol. 9.9 fl (6.2-12.0); Monocyte% 7.7 % (0-10); NRBC Flagged by Analyzer 0 % (0-5); Neutrophil # 5.53 X10^3/uL (2.7-7.7); Neutrophil % 70.9 % (47-70); Platelet Count 178 K/mm3 (150-450); RBC Distribution Width CV 14.4 % (11.6-14.6); RBC Distribution Width SD 51.6 fl (35.1-43.9); Red Blood Count 3.48 M/mm3 (4.2-5.4); White Blood Count 7.8 K/mm3 (4.4-11.0)
[2024-05-03] MEDS: Furosemide 40 MG/4 ML Vial IV (19:49)
[2024-05-03] MEDS: HYDROcodone Bitartrate/Apap 5/325 Tablet PO (20:06)
[2024-05-03 20:40] LABS: Anion Gap 11 (5-15); BUN 54 mg/dL (4-19); BUN/Creat Ratio 25.3 RATIO (10-20); Calcium 9.9 mg/dL (7.6-11.0); Carbon Dioxide 31.3 mmol/L (22.0-29.0); Chloride 99 mmol/L (96-108); Creatinine, Serum 2.2 mg/dL (0.6-1.0); EST Glomerular Filtration Rate 25 (>60); Estimated Creatinine Clearance 29.95 ml/min; Glucose 78 mg/dL (70-99); Sodium Level 141 mmol/L (133-145)
[2024-05-03 20:44] LABS: Pro- Brain NATRIURETIC PEPTIDE 992 pg/mL (<=900)
[2024-05-03 20:46] LABS: Troponin T High Sensitivity 111 ng/L (<=14)
--- NOTE | 2024-05-03 22:21 | EX.ED.DYSGE1 ---
HPI History of Present Illness Chief Complaint: Edema Informant: patient Onset/Context/Timing Onset: Weeks Context: Gradual Onset Timing: Continuous Current Severity: Moderate Maximum Severity: Moderate Narrative Narrative: 63-year-old female history of COPD, CHF, diabetes, A-fib. She is currently on the blood thinner Eliquis. States that she takes Lasix 80 mg a day. She has had a 20 pound weight gain over the last 2 weeks. In spite of her Lasix she has increasing swelling her lower extremities. States mild shortness of breath. She is on oxygen at home. Denies any chest pain. Prior similar symptoms: Yes Recent Illness/Hospitalization: No PFSH PFSH Medical History Left shoulder pain Wears hearing aid Post-menopausal Depression Anxiety History of steroid therapy Walker as ambulation aid Kidney stones Arthritis Back pain History of IBS Former smoker COPD (chronic obstructive pulmonary disease) Shortness of breath on exertion Thyroid disease History of heart attack History of stress test History of echocardiogram Low platelet count Anemia History of ESBL E. coli infection Morbid obesity with BMI of 40.0-44.9, adult Congestive heart failure Peripheral edema History of CHF (congestive heart failure) History of atrial fibrillation History of hypertension Chest pain of uncertain etiology Bradycardia History of tobacco use History of diabetes mellitus, type II History of COPD Acute hypotension Pulmonary hypertension, secondary Abdominal ascites Diverticulitis large intestine w/o perforation or abscess w/bleeding Pericardial effusion with cardiac tamponade Chronic kidney disease History of cardiac arrest Chest pain Wears glasses Wears dentures Substance abuse Alcohol use Rash Gout High cholesterol PVD (peripheral vascular disease) Easy bruising Seizures Dietary restriction Gastric reflux Injury of back Vapes nicotine containing substance Fall History of pain when walking History of edema Insomnia Major depression On home oxygen therapy Emphysema, unspecified Neuropathy Cardiology follow-up encounter History of ulceration DKA (diabetic ketoacidosis) Cardiac arrest [facility] current use of anticoagulant Encounter for infusaport central venous catheter removal Lichen sclerosus Macular degeneration Essential hypertension Decreased left ventricular function Paroxysmal atrial fibrillation Diverticulosis Migraine Iron deficiency anemia COPD (chronic obstructive pulmonary disease) Port-A-Cath in place Acid reflux IBS (irritable bowel syndrome) CHF (congestive heart failure) Neuropathy Kidney failure Hypothyroid Schizoaffective disorder, bipolar type Emphysema lung Diabetes Heart attack Home Medications ?Medication ?Instructions ?Recorded ?Last Taken ?Type apixaban 5 mg tablet (Eliquis) 5 mg PO BID blood thinner 12/24/22 03/15/24 History atorvastatin 20 mg tablet 20 mg PO DAILY cholesterol 12/24/22 07/27/23 History gabapentin 300 mg capsule 300 mg PO TID nerve pain 12/25/22 07/27/23 History trazodone 100 mg tablet 100 mg PO QHS sleep 01/01/23 07/26/23 History aripiprazole 20 mg tablet 20 mg PO QHS mental health 03/09/23 03/18/24 History fluticasone propionate 50 1 spray intranasal DAILY PRN 04/27/23 Unknown History mcg/actuation nasal allergy symptoms spray,suspension divalproex 500 mg tablet,extended 500 mg PO QHS seizure 07/25/23 07/27/23 History release 24 hr levothyroxine 100 mcg tablet 100 mcg PO DAILY thyroid 07/25/23 07/27/23 History oxybutynin chloride 5 mg 5 mg PO DAILY bladder 07/25/23 07/27/23 History tablet,extended release 24 hr insulin glargine 100 unit/mL (3 20 unit subcut DAILY diabetes 10/13/23 Unknown History mL) subcutaneous pen (Lantus Solostar U-100 Insulin) clotrimazole-betamethasone 1 1 applic topical BID skin 12/24/23 Unknown History %-0.05 % topical cream irritation diclofenac sodium 1 % topical gel 2 g topical ONCE 12/24/23 Unknown History empagliflozin 25 mg tablet 25 mg PO QAM diabetes 12/24/23 03/17/24 History (Jardiance) epinephrine 0.3 mg/0.3 mL 0.3 mg IM ONCE allergic reaction 12/24/23 Unknown History injection, auto-injector (EpiPen 2-Wayne) meloxicam 7.5 mg tablet 7.5 mg PO QDAY PRN pain 12/24/23 Unknown History pantoprazole 40 mg tablet,delayed 40 mg PO QDAY acid reflux 12/24/23 Unknown History release nystatin 100,000 unit/gram topical 1 applic topical BID skin 01/06/24 Unknown History powder irritation valbenazine 80 mg capsule 80 mg PO HS 01/06/24 Unknown History (Ingrezza) buprenorphine 10 mcg/hour weekly 1 patch topical QWEEK 03/07/24 03/19/24 History transdermal patch docusate sodium 100 mg capsule 100 mg PO BID PRN constipation 03/07/24 Unknown History (Colace) nicotine 1 patch topical DAILY 03/07/24 Unknown History 21mg/24hr-14mg/24hr-7mg/24hr daily transderm patches,sequentl tobramycin 0.3 %-dexamethasone 1 drp ophthalmic (eye) .Q4-6H 03/07/24 Unknown History 0.05 % eye drops,suspension (Tobradex ST) linaclotide 145 mcg capsule 145 mcg PO QAM #60 caps 03/10/24 Unknown Rx (Linzess) sodium sul 1.479 gram-potas ch See Rx Instructions PO PER PKG DIR 03/10/24 Unknown Rx 0.188 gram-magnes sul 0.225 gram #24 tabs tablet (Sutab) methocarbamol 500 mg tablet 500 mg PO 4X/DAY PRN Muscle 03/16/24 Unknown Rx pain/spasm #40 tabs sennosides 8.6 mg-docusate sodium 2 tab PO BID PRN constipation #30 03/21/24 Unknown Rx 50 mg tablet (Stimulant Laxative tabs Plus) hydrocodone-acetaminophen 5-325mg 1 tab PO Q6H PRN pain 5 days #20 03/28/24 Unknown Rx 5mg-325mg tabs fluticasone fur. 100 mcg-umeclid 1 inh inhalation Q24H #60 ea 03/31/24 Unknown Rx 62.5 mcg-vilant 25 mcg inhalat.powder (Trelegy Ellipta) prednisone 10 mg tablet 10 mg PO DIRECTED #13 tabs 03/31/24 Unknown Rx ciprofloxacin HCl 500 mg tablet 500 mg PO QDAY 05/01/24 Unknown History metronidazole 500 mg tablet 500 mg PO Q8H 05/01/24 Unknown History methocarbamol 500 mg tablet 750 mg (1.5 x 500 mg) PO TID PRN 05/02/24 Unknown Rx pain/spasms #30 tabs atropine 1 % eye drops 1 drp PO BID 05/03/24 Unknown History furosemide 80 mg tablet (Lasix) 80 mg PO DAILY 05/03/24 Unknown History peg 400-propylene glycol 0.4 %-0.3 1 drp EACH EYE DAILY PRN dry eye(s) 05/03/24 Unknown History % eye drops (Lubricant Eye (PG-PEG 400)) sodium sul 1.479 gram-potas ch 1 tab PO PER PKG DIR #24 tabs 05/03/24 Unknown Rx 0.188 gram-magnes sul 0.225 gram tablet (Sutab) Allergy/AdvReac Type Severity Reaction Status Date / Time aspirin Allergy Mild Hives Verified 05/03/24 16:16 erythromycin base Allergy Mild Hives Verified 05/03/24 16:16 Penicillins Allergy Mild Hives Verified 05/03/24 16:16 polyethylene glycol 3350 Allergy Mild Nausea/Vom/ Verified 05/03/24 16:16 (From Miralax) Diarrhea tramadol Allergy Mild Hives Verified 05/03/24 16:16 tomato Allergy Food Verified 05/03/24 16:16 Allergy Family History Mother Heart disease Hypertension Cancer Father Brain aneurysm age 40 CVA (cerebral vascular accident) Cancer Brother Colon cancer Surgical History Hx of surgical procedure History of bilateral knee replacement Hx of vein stripping Hx of toe surgery History of lithotripsy History of delivery History of bilateral cataract extraction History of cholecystectomy H/O: hysterectomy Social History household members: caregiver Smoking Status: Former smoker Tobacco: How many years used: 18 Electronic Cigarette Use: with nicotine second hand exposure: No alcohol intake: never substance use type: does not use caffeine: Yes ROS ROS ED ROS Narrative Bilateral lower extremity swelling. Constitutional Constitutional ED: Denies chills or fever(s) Eyes Eyes: Denies blurry vision ENT ENT ED: Denies ear pain Cardiovascular Cardiovascular: Denies chest pain Respiratory/Chest Respiratory/Chest: Reports dyspnea; Denies cough Gastrointestinal Gastrointestinal: Denies abdominal pain Genitourinary Genitourinary ED: Denies dysuria or hematuria Musculoskeletal Musculoskeletal: Denies arthralgias Integumentary Denies abscess or Abrasions Neurologic Neurologic: Denies headache(s) Psychiatric Psychiatric: Denies anxiety Endocrine Endocrinology: Denies cold intolerance Hematologic/Lymphatic Hematologic/Lymphatic: Reports none Allergic/Immunologic Allergic/Immunologic ED: Denies mouth swelling, tongue swelling or urticaria EXAM Physical Exam Narrative Exam Narrative: 63-year-old female sitting upright in bed. Vital signs are stable afebrile she does not look septic toxic no distress. Pulse ox 94% on room air no hypoxia. H EENT exam unremarkable. Moist mucous membranes. Neck nontender no JVD. Lungs clear to auscultation bilaterally. Heart regular rhythm rate about 65 no murmur. Chest wall and ribs nontender. Abdomen soft nontender. Moving all 4 extremities. 2+ pitting edema both lower extremities. Equal symmetrical. No cords. Dorsi plantarflexion intact. Back nontender. She is awake and alert. Answering questions following commands. Const Vital Signs: 05/03/24 16:16 05/03/24 17:23 05/03/24 17:25 Temperature 97.5 F L Temperature Source Oral Pulse Rate 77 62 Respiratory Rate 18 14 Respiratory Effort Normal Respiratory Pattern Normal Blood Pressure 171/144 H 94/67 Blood Pressure Mean 153 76 Pulse Ox 94 96 Oxygen Delivery Method Room Air Room Air 05/03/24 19:16 05/03/24 21:00 05/03/24 23:02 Temperature 98 F Temperature Source Pulse Rate 51 L 58 L 77 Respiratory Rate 14 15 15 Respiratory Effort Respiratory Pattern Blood Pressure 102/56 L 105/59 L 126/63 H Blood Pressure Mean 71 74 84 Pulse Ox 95 91 90 Oxygen Delivery Method Room Air Positive well nourished, well developed and obese; Negative for cachectic, contractures or unkempt General Appearance ED: well developed and NAD; Negative for unkempt, cachectic, contractures, cyanotic, diaphoretic or pallor Nutritional Appearance: obese; Negative for cachectic HEENT Reports moist mucous membranes Negative for trauma or tenderness Eyes PERRL and EOMs intact bilaterally General Eye ED: Negative for pale conjunctiva or scleral icterus Neck no lymphadenopathy, supple and no JVD General: Negative for tenderness Lymph Lymphatic: Negative for other Chest Wall inspection of chest normal and palpation of chest normal Resp normal respiratory effort and clear to auscultation bilaterally Auscultation: Negative for rales, rhonchi, wheezes or diminished lung sounds Cardio regular rate, regular rhythm, S1 normal heart sound, S2 normal heart sound and no murmurs GI normal to inspection, nondistended, normoactive bowel sounds, non-tender, non-distended and no masses Auscultation: normoactive bowel sounds Palpation: soft; Negative for tender, guarding or rebound tenderness present Back/Spine no CVA tenderness Extremity Negative for normal to inspection Extremity Narrative: Bilateral lower extremity 2+ pitting edema. Normal strength. Normal dorsi plantarflexion. General Extremety ED: Yes edema General Extremity: edema Neuro oriented x3 and CN's II-XII intact bilaterally Sensorium / Orientation: alert; Negative for orientation impaired Motor Exam: strength 5/5 throughout Psych mental status grossly normal Appearance: Negative for unkempt Attitude: No agitated Mood & Affect: Negative for depressed, anxious or tearful Skin no rashes or lesions noted and no wounds General Skin Exam: Negative for jaundice or pallor Lesions: No lesion noted Rashes: No rashes noted Trauma: Negative for abrasion Wounds: Negative for wounds noted MDM MDM MDM Narrative Medical decision making narrative: 63-year-old female peripheral edema may be secondary to venous insufficiency versus CHF. She is anticoagulated on Eliquis. Screening labs will be obtained. She is getting worse and gaining weight despite taking Lasix at home. She may need admitted for further evaluation and further IV Lasix. Repeat exam has been no significant change at 10:25 PM. She was given Lasix I do not think she is urinated since she has been here. Hospitalist on page for admission. History & Record Review Discussion w/independent historian: Patient Additional record(s) reviewed:: Prior inpatient record, Prior outpatient record, Prior ED visit and Prior labs Lab Data Attestation: I reviewed the patient's lab results. Lab results narrative: CBC shows a white count of 7. H&H 10.8 and 34. Platelets 178. Electrolytes show a gap of 11. BUN of 54 creatinine 2.2 which is along her baseline. Glucose 78. Troponin 111. BNP at 992. Labs: Laboratory Results - last 24 hr 05/03/24 17:30 WBC 7.8 RBC 3.48 L Hgb 10.8 L Hct 34.3 L MCV 98.6 MCH 31.0 MCHC 31.5 L RDW Std Deviation 51.6 H RDW Coeff of Penny 14.4 Plt Count 178 MPV 9.9 Immature Gran % (Auto) 0.400 Neut % (Auto) 70.9 H Lymph % (Auto) 13.5 L [place] % (Auto) 7.7 Eos % (Auto) 6.9 H Baso % (Auto) 0.6 Absolute Neuts (auto) 5.5 Absolute Lymphs (auto) 1.05 Nucleated RBC % 0 Sodium 141 Potassium 4.0 Chloride Direct 99 Carbon Dioxide 31.3 H Anion Gap 11 BUN 54 H Creatinine 2.2 H Estim Creat Clear Calc 29.95 Est GFR (MDRD) Non-Af 25 L BUN/Creatinine Ratio 25.3 H Glucose 78 Calcium 9.9 Troponin T High Sens 111 H* NT pro BNP II 992 H Radiography Chest X-Ray - ED: Read by ED Physician, Read by Radiologist, Normal, Heart, Lungs, Mediastinum, Bony Structures, No Acute Disease and Chronic Changes Diagnostic Testing: Clinical Impression(s) from Imaging Studies Chest X-Ray 05/03/24 19:34 IMPRESSION: No acute cardiopulmonary process is demonstrated. If there is persistent pain or clinical concern, short-term follow-up chest CT evaluation may be considered. Reading Location: [facility] Chest x-ray, portable, single view shows normal cardiac silhouette. Normal lung boyd. No significant effusion seen or pulmonary edema. Rhythm Strip Rhythm Strip: Sinus Rhythm Rate: 66 Ectopy: None EKG Initial EKG: Attestation: I personally reviewed and interpreted this EKG as follows: Interpretation: Sinus Rhythm and No Acute Injury Pattern Comments: Normal sinus rhythm rate of 66 no acute signs of NM or ischemia. Discharge Plan Dx/Rx/DC Orders Clinical Impression: Edema, peripheral, Chronic anticoagulation, History of atrial fibrillation, Chronic venous insufficiency, History of diabetes mellitus, Chronic kidney disease Disposition Disposition: Acute Care [facility]
--- NOTE | 2024-05-03 22:59 | PCM.HP.STD ---
[facility] Date of Admission: 05/04/24 Date of Service: 05/03/24 Chief Complaint: LE Edema, SOB and ~20 [place] Weight Gain Over the Past ~2 Weeks. [facility] Narrative JADE SAN, is a 63 F with a past medical history of essential hypertension; on furosemide 80 mg daily, hyperlipidemia; on atorvastatin, hypothyroidism; on levothyroxine, morbid obesity; with BMI of 41 this admission, DM-2; of unknown control with history of DKA on empagliflozin and insulin glargine 20U sq BID , diabetic neuropathy; on gabapentin, CAD; status post DC, history of chronic diastolic CHF; with preserved LVEF ~60% (06/2023), history of PAF; on apixaban, history of pericardial effusion; with cardiac tamponade, history of cardiac arrest; status post successful resuscitation with ACLS, history of secondary pulmonary hypertension, history of tobacco abuse; subsequent COPD, chronic hypoxic respiratory failure on as needed 4 L nasal cannula, history of substance abuse with opioids, methamphetamine and MDMA, CKD; stage III (with baseline creatinine of approximately 1.9 mg/dL), KE, PVD; with history of bilateral lower extremity vein stripping; with previous bouts of LE cellulitis, history of seizure disorder; on divalproex, macular degeneration, schizoaffective disorder; bipolar type on aripiprazole, chronic lower extremity edema, history of lichen sclerosis, history of colonic diverticulosis, history of migraine headaches, IBS, GERD; on pantoprazole, gout, osteoarthritis, history admission here from June 24, 2023 to June 27, 2023 for treatment of chest pain, hypotension and acute toxic and metabolic encephalopathy with urine drug screen positive for opioids as well as MDMA with acute hypercapnic and hypoxic respiratory failure and AE of diastolic CHF; with preserved LVEF and recent admission here from March 20, 2024 to March 21, 2024 for treatment of OA; with stenosis of lumbar spine with neurogenic claudication on buprenorprhine patch plus hydrocodone-acetaminophen QID prn who presents to [facility] ER complaining of bilateral lower extremity swelling and shortness of breath. Ms. San reports her symptoms began approximately 2 weeks prior to admission with the gradual-onset of an unintentional ~20 pond weight gain since that time in spite of taking her furosemide 80 mg daily. She also admits to increasing LE edema with dyspnea on exertion that progressed to SOB at rest. She denies associated fever, chills, nausea, vomiting, abdominal pain, chest pain or headache. She admits her symptoms are similar to her previous AE of chronic diastolic CHF. In the ER she was noted to have an elevated BNP of 992 pg/mL present on admission with a CXR that revealed no acute cardiopulmonary process and she was then admitted to the PCU for ongoing care for a stay that is expected to extend beyond 2 midnights. [facility] Medical History Left shoulder pain Wears hearing aid Post-menopausal Depression Anxiety History of steroid therapy Walker as ambulation aid Kidney stones Arthritis Back pain History of IBS Former smoker COPD (chronic obstructive pulmonary disease) Shortness of breath on exertion Thyroid disease History of heart attack History of stress test History of echocardiogram Low platelet count Anemia History of ESBL E. coli infection Morbid obesity with BMI of 40.0-44.9, adult Congestive heart failure Peripheral edema History of CHF (congestive heart failure) History of atrial fibrillation History of hypertension Chest pain of uncertain etiology Bradycardia History of tobacco use History of diabetes mellitus, type II History of COPD Acute hypotension Pulmonary hypertension, secondary Abdominal ascites Diverticulitis large intestine w/o perforation or abscess w/bleeding Pericardial effusion with cardiac tamponade Chronic kidney disease History of cardiac arrest Chest pain Wears glasses Wears dentures Substance abuse Alcohol use Rash Gout High cholesterol PVD (peripheral vascular disease) Easy bruising Seizures Dietary restriction Gastric reflux Injury of back Vapes nicotine containing substance Fall History of pain when walking History of edema Insomnia Major depression On home oxygen therapy Emphysema, unspecified Neuropathy Cardiology follow-up encounter History of ulceration DKA (diabetic ketoacidosis) 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 Encounter for infusaport central venous catheter removal Lichen sclerosus Macular degeneration Essential hypertension Decreased left ventricular function Paroxysmal atrial fibrillation Diverticulosis Migraine Iron deficiency anemia COPD (chronic obstructive pulmonary disease) Port-A-Cath in place Acid reflux IBS (irritable bowel syndrome) CHF (congestive heart failure) Neuropathy Kidney failure Hypothyroid Schizoaffective disorder, bipolar type Emphysema lung Diabetes Heart attack Home Medications ?Medication ?Instructions ?Recorded ?Last Taken ?Type apixaban 5 mg tablet (Eliquis) 5 mg PO BID blood thinner 12/24/22 03/15/24 History atorvastatin 20 mg tablet 20 mg PO DAILY cholesterol 12/24/22 07/27/23 History gabapentin 300 mg capsule 300 mg PO TID nerve pain 12/25/22 07/27/23 History trazodone 100 mg tablet 100 mg PO QHS sleep 01/01/23 07/26/23 History aripiprazole 20 mg tablet 20 mg PO QHS mental health 03/09/23 03/18/24 History fluticasone propionate 50 1 spray intranasal DAILY PRN 04/27/23 Unknown History mcg/actuation nasal allergy symptoms spray,suspension divalproex 500 mg tablet,extended 500 mg PO QHS seizure 07/25/23 07/27/23 History release 24 hr levothyroxine 100 mcg tablet 100 mcg PO DAILY thyroid 07/25/23 07/27/23 History oxybutynin chloride 5 mg 5 mg PO DAILY bladder 07/25/23 07/27/23 History tablet,extended release 24 hr insulin glargine 100 unit/mL (3 20 unit subcut DAILY diabetes 10/13/23 Unknown History mL) subcutaneous pen (Lantus Solostar U-100 Insulin) clotrimazole-betamethasone 1 1 applic topical BID skin 12/24/23 Unknown History %-0.05 % topical cream irritation diclofenac sodium 1 % topical gel 2 g topical ONCE 12/24/23 Unknown History empagliflozin 25 mg tablet 25 mg PO QAM diabetes 12/24/23 03/17/24 History (Jardiance) epinephrine 0.3 mg/0.3 mL 0.3 mg IM ONCE allergic reaction 12/24/23 Unknown History injection, auto-injector (EpiPen 2-Wayne) meloxicam 7.5 mg tablet 7.5 mg PO QDAY PRN pain 12/24/23 Unknown History pantoprazole 40 mg tablet,delayed 40 mg PO QDAY acid reflux 12/24/23 Unknown History release nystatin 100,000 unit/gram topical 1 applic topical BID skin 01/06/24 Unknown History powder irritation valbenazine 80 mg capsule 80 mg PO HS 01/06/24 Unknown History (Ingrezza) buprenorphine 10 mcg/hour weekly 1 patch topical QWEEK 03/07/24 03/19/24 History transdermal patch docusate sodium 100 mg capsule 100 mg PO BID PRN constipation 03/07/24 Unknown History (Colace) nicotine 1 patch topical DAILY 03/07/24 Unknown History 21mg/24hr-14mg/24hr-7mg/24hr daily transderm patches,sequentl tobramycin 0.3 %-dexamethasone 1 drp ophthalmic (eye) .Q4-6H 03/07/24 Unknown History 0.05 % eye drops,suspension (Tobradex ST) linaclotide 145 mcg capsule 145 mcg PO QAM #60 caps 03/10/24 Unknown Rx (Linzess) sodium sul 1.479 gram-potas ch See Rx Instructions PO PER PKG DIR 03/10/24 Unknown Rx 0.188 gram-magnes sul 0.225 gram #24 tabs tablet (Sutab) methocarbamol 500 mg tablet 500 mg PO 4X/DAY PRN Muscle 03/16/24 Unknown Rx pain/spasm #40 tabs sennosides 8.6 mg-docusate sodium 2 tab PO BID PRN constipation #30 03/21/24 Unknown Rx 50 mg tablet (Stimulant Laxative tabs Plus) hydrocodone-acetaminophen 5-325mg 1 tab PO Q6H PRN pain 5 days #20 03/28/24 Unknown Rx 5mg-325mg tabs fluticasone fur. 100 mcg-umeclid 1 inh inhalation Q24H #60 ea 03/31/24 Unknown Rx 62.5 mcg-vilant 25 mcg inhalat.powder (Trelegy Ellipta) prednisone 10 mg tablet 10 mg PO DIRECTED #13 tabs 03/31/24 Unknown Rx ciprofloxacin HCl 500 mg tablet 500 mg PO QDAY 05/01/24 Unknown History metronidazole 500 mg tablet 500 mg PO Q8H 05/01/24 Unknown History methocarbamol 500 mg tablet 750 mg (1.5 x 500 mg) PO TID PRN 05/02/24 Unknown Rx pain/spasms #30 tabs atropine 1 % eye drops 1 drp PO BID 05/03/24 Unknown History furosemide 80 mg tablet (Lasix) 80 mg PO DAILY 05/03/24 Unknown History peg 400-propylene glycol 0.4 %-0.3 1 drp EACH EYE DAILY PRN dry eye(s) 05/03/24 Unknown History % eye drops (Lubricant Eye (PG-PEG 400)) sodium sul 1.479 gram-potas ch 1 tab PO PER PKG DIR #24 tabs 05/03/24 Unknown Rx 0.188 gram-magnes sul 0.225 gram tablet (Sutab) Allergy/AdvReac Type Severity Reaction Status Date / Time aspirin Allergy Mild Hives Verified 05/03/24 16:16 erythromycin base Allergy Mild Hives Verified 05/03/24 16:16 Penicillins Allergy Mild Hives Verified 05/03/24 16:16 polyethylene glycol 3350 Allergy Mild Nausea/Vom/ Verified 05/03/24 16:16 (From Miralax) Diarrhea tramadol Allergy Mild Hives Verified 05/03/24 16:16 tomato Allergy Food Verified 05/03/24 16:16 Allergy Family History Mother Heart disease Hypertension Cancer Father Brain aneurysm age 40 CVA (cerebral vascular accident) Cancer Brother Colon cancer Surgical History Hx of surgical procedure History of bilateral knee replacement Hx of vein stripping Hx of toe surgery History of lithotripsy History of delivery History of bilateral cataract extraction History of cholecystectomy H/O: hysterectomy Social History household members: caregiver Smoking Status: Former smoker Tobacco: How many years used: 18 Electronic Cigarette Use: with nicotine second hand exposure: No alcohol intake: never substance use type: does not use caffeine: Yes ROS ROS Narrative Review of Systems: Constitutional: Patient denies fever or chills. Eyes: Patient denies changes in vision or discharge from eyes. ENT: Patient denies runny nose, sore throat or ear pain. Resp: Patient admits to SOB made worse with minimal exertion but she denies cough. CV: Patient admits to significant LE edema but she denies chest pain or palpitations. GI: Patient denies abdominal pain, nausea, vomiting or diarrhea. : [place] denies dysuria or hematuria. MSK: Patient denies myalgias or arthralgias. Skin: Patient denies rash but was noted to have mild erythema of both legs. Psych: Patient denies symptoms of uncontrolled depression or anxiety. Allergy: Patient denies lip swelling, tongue swelling or urticaria. Hematology: Patient denies easy bleeding or easy bruisability. Endocrinology: Patient denies lip swelling, tongue swelling or urticaria. 14 point ROS otherwise negative except for positives noted above in HPI. Vital Signs Vital Signs Vital Signs: 05/03/24 16:16 05/03/24 17:23 05/03/24 17:25 Temperature 97.5 F L Temperature Source Oral Pulse Rate 77 62 Respiratory Rate 18 14 Respiratory Effort Normal Respiratory Pattern Normal Blood Pressure 171/144 H 94/67 Blood Pressure Mean 153 76 Pulse Ox 94 96 Oxygen Delivery Method Room Air Room Air 05/03/24 19:16 05/03/24 21:00 Temperature Temperature Source Pulse Rate 51 L 58 L Respiratory Rate 14 15 Respiratory Effort Respiratory Pattern Blood Pressure 102/56 L 105/59 L Blood Pressure Mean 71 74 Pulse Ox 95 91 Oxygen Delivery Method Room Air Weight Weight: 231 lb 7.766 oz Body Mass Index (BMI) 41.0 Physical Exam Const alert, oriented x3 and no apparent distress Constitutional Narrative: Patient is morbidly obese and appears chronically ill. General Appearance: cooperative HEENT normocephalic, head/scalp atraumatic, hearing grossly normal bilaterally and moist oral mucous membranes Eyes PERRL, EOMs intact bilaterally and conjunctivae normal Neck no lymphadenopathy, supple and no JVD Resp normal respiratory effort, no retractions, no use of accessory muscles and clear to auscultation bilaterally Cardio regular rate and regular rhythm GI normal to inspection, nondistended, normoactive bowel sounds, soft to palpation, non-tender and non-distended GI Narrative: Morbidly obese. Extremity Extremity Narrative: ~2+ bilateral symmetrical LE pitting edema. Skin Skin Narrative: Patient has mild erythema of the legs but no evidence of wounds. Neuro oriented x3, CN's II-XII intact bilaterally, moves all extremities and no focal motor deficits Sensorium / Orientation: awake, alert, oriented to person, oriented to place and oriented to time Speech: speech normal Psych affect normal Results Medical Records Data Attestation: I reviewed the patient's medical records Lab / Micro Data Attestation: I reviewed the patient's lab results. 05/04/24 03:10 05/04/24 03:10 Labs: Laboratory Results - last 24 hr 05/03/24 17:30: WBC 7.8, RBC 3.48 L, Hgb 10.8 L, Hct 34.3 L, MCV 98.6, MCH 31.0, MCHC 31.5 L, RDW Std Deviation 51.6 H, RDW Coeff of Penny 14.4, Plt Count 178, MPV 9.9, Immature Gran % (Auto) 0.400, Neut % (Auto) 70.9 H, Lymph % (Auto) 13.5 L, Mclean % (Auto) 7.7, Eos % (Auto) 6.9 H, Baso % (Auto) 0.6, Absolute Neuts (auto) 5.5, Absolute Lymphs (auto) 1.05, Nucleated RBC % 0, Sodium 141, Potassium 4.0, Chloride Direct 99, Carbon Dioxide 31.3 H, Anion Gap 11, BUN 54 H, Creatinine 2.2 H, Estim Creat Clear Calc 29.95, Est GFR (MDRD) Non-Af 25 L, BUN/Creatinine Ratio 25.3 H, Glucose 78, Calcium 9.9, Troponin T High Sens 111 H*, NT pro BNP II 992 H Rhythm Strip Rhythm Strip: Sinus Rhythm Rate: 66 Ectopy: None Imaging Radiology Impression Chest X-Ray 05/03/24 19:34 IMPRESSION: No acute cardiopulmonary process is demonstrated. If there is persistent pain or clinical concern, short-term follow-up chest CT evaluation may be considered. Reading Location: [facility] Assessment & Plan Assessment/Plan (1) Heart failure: QUALIFIERS: Heart failure chronicity: acute on chronic Heart failure type: diastolic Qualified Code(s): I50.33 - Acute on chronic diastolic (congestive) heart failure (2) Peripheral edema: (3) Morbid obesity with BMI of 40.0-44.9, adult: (4) History of atrial fibrillation: (5) History of hypertension: PLAN: Plan 1. AE of chronic diastolic CHF; with ~20 pound weight gain over the past ~2 weeks - Admit to PCU. Continue furosemide IV BID with supplemental KCl and magnesium. Check echocardiogram to reassess LVEF. Serialize troponin. Fluid restrict 1.5L/day. Follow strict I's & O's. Check TSH. Finally, we will consult [facility] to see this patient on-rounds in the AM for further recommendations with help appreciated in advance. 2. Morbid obesity; with BMI of 41 this admission complicating #1 - Weight loss will be recommended. This complicates her case and may hamper recovery. 3. History of PAF; on apixaban compounding #1 & #2 - Resume apixaban as before. 4. Recent admission here from March 20, 2024 to March 21, 2024 for treatment of OA; with stenosis of lumbar spine with neurogenic claudication on buprenorprhine patch plus hydrocodone-acetaminophen QID adding to the medical complexity of #1 - #3 - Noted. Maintain buprenorphine patch as previous. 5. History admission here from June 24, 2023 to June 27, 2023 for treatment of chest pain, hypotension and acute toxic and metabolic encephalopathy with urine drug screen positive for opioids as well as MDMA with acute hypercapnic and hypoxic respiratory failure and AE of diastolic CHF; with preserved LVEF - Noted. UDS pending this admission. 6. Essential Hypertension; on furosemide 80 mg daily - Furosemide switched to IV for #1. 7. Hyperlipidemia; on atorvastatin - Maintain statin. 8. Hypothyroidism; on levothyroxine - Continue levothyroxine and check TSH. 9. DM-2; of unknown control with history of DKA on empagliflozin and insulin glargine 20U sq BID plus diabetic neuropathy; on gabapentin - Decrease insulin glargine to 12U BID plus check FSBS q. AC/HS with lowest-intensity SSI. Check HgbA1c to objectively assess quality of diabetic control. 10. CAD; status post DC - Noted. 11. History of pericardial effusion; with cardiac tamponade - Noted with new echocardiogram pending at this time. 12. History of cardiac arrest; status post successful resuscitation with ACLS - Noted. 13. History of secondary pulmonary hypertension - Noted. 14. History of tobacco abuse; subsequent COPD and chronic hypoxic respiratory failure on as needed 4 L nasal cannula - Stable with no evidence of acute flare at this time. Continue nebulizers prn. 15. History of substance abuse with opioids, methamphetamine and MDMA - UDS pending this admission. 16. CKD; stage III (with baseline creatinine of approximately 1.9 mg/dL) - Stable. Check renal indices daily to ensure continued stability. 17. KE - Stable with hemoglobin of 9.5 g/dL and MCV of 98.7 fL present on admission. 18. PVD; with history of bilateral lower extremity vein stripping - Noted. 19. History of seizure disorder; on divalproex - Check valproic acid level and then continue as before if in therapeutic range. 20. Macular degeneration - Stable. 21. Schizoaffective disorder; bipolar type on aripiprazole - Resume aripiprazole as previous. 20. Chronic lower extremity edema; with previous bouts of LE cellulitis - Noted with acute worsening due to #1. 22. History of lichen sclerosis - Noted. 23. History of colonic diverticulosis - Noted. 24. History of migraine headaches - Noted with no complaints of headache at this time. 25. IBS - Stable. 26. GERD; on pantoprazole - Maintain PPI. 27. Gout - Stable with no evidence of flare at this time. 28. OA - Stable. Give acetaminophen prn. 29. DVT prophylaxis - Patient already on apixaban for #3 which will be continued. Total time: Approximately (but not less than) 75 minutes. Charges/Coding Visit Charges Inpatient E&M: 48787 Init Hosp L3
[2024-05-03] MEDS: Ondansetron 4 MG/2 ML Vial IV (23:06)
[2024-05-03] MEDS: Morphine 4 MG/ML Syringe IV (23:06)
[2024-05-04] VITALS (10 sets, daily range): BP systolic 102–131; BP diastolic 35–63; PULSE 50–79; RESP 12–18; TEMP 36.3–36.5; O2SAT 92–100; BMI 41.0
--- NOTE | 2024-05-04 00:27 | ECHOD_ITS ---
Reason For Study Reason For Study: CHF Procedure This was a 2D Doppler, Color Flow transthoracic echocardiogram. The study was technically difficult. Patient could not tolerate probe pressure. Definity declined. Exam performed portable in patient room. Left Ventricle Normal LV size. The estimated ejection fraction is 65 %. Unable to assess diastolic dysfunction. No regional wall motion abnormalities noted. Right Ventricle Normal RV size. Normal systolic function. Atria The left and right atria are normal. No doppler evidence for ASD. Mitral Valve There is no mitral valve stenosis. No mitral valve insufficiency. Tricuspid Valve There is no tricuspid stenosis. Unable to estimate RV systolic pressure due to inadequate jet, pulmonary artery pressure probably normal. Aortic Valve Aortic sclerosis, no stenosis. There is no aortic stenosis. No aortic valve insufficiency. Pulmonic Valve There is no pulmonic valvular stenosis. No pulmonic valve insufficiency. Great Vessels Normal sized aortic root. Pericardium/Pleural No pericardial effusion. MMode/2D Measurements & Calculations LVIDd: 5.0 cm IVSd: 1.2 cm Ao root diam: 2.5 cm LVIDs: 3.1 cm LVPWd: 1.1 cm FS: 37.8 % LAV(MOD-sp4): 29.5 ml LA A4 area: 13.3 cm2 LA dimension(2D): 3.4 cm RA A4 area: 9.1 cm2 Time Measurements MV dec time: 0.26 sec Doppler Measurements & Calculations MV E max antonio: 98.8 cm/sec Lat Peak E' Antonio: 12.6 cm/sec Med Peak E' Antonio: 7.9 cm/sec MV A max antonio: 97.2 cm/sec E/E' lat: 7.9 E/E' med: 12.6 MV E/A: 1.0 MV V2 max: 139.2 cm/sec MV dec slope: 385.1 cm/sec2 Ao V2 max: 147.9 cm/sec MV max P.8 mmHg Ao max P.8 mmHg MV V2 mean: 92.9 cm/sec Ao V2 mean: 107.1 cm/sec MV mean P.8 mmHg Ao mean P.1 mmHg MV V2 VTI: 48.4 cm Ao V2 VTI: 35.8 cm AV (velocity ratio): 0.92 LV V1 max: 135.7 cm/sec PA V2 max: 119.0 cm/sec LV V1 max P.4 mmHg PA V2 mean: 91.1 cm/sec LV V1 mean P.3 mmHg LV V1 mean: 80.1 cm/sec LV V1 VTI: 32.9 cm ECHO/Echo Complete Interpretation Summary The estimated ejection fraction is 65 %. Aortic sclerosis, no stenosis. Ordering Physician: Elliot Zuniga Referring Physician: JULIANNE LAMBERT Performed By: Melvina Cheung RCS
[2024-05-04 03:32] LABS: Basophil# 0.04 X10^3/uL; Basophil% 0.5 % (0-1); Eosinophil# 0.54 X10^3/uL; Eosinophils% 7.2 % (0-5); Hematocrit 30.5 % (37-47); Hemoglobin 9.5 g/dL (12.0-15.0); Lymphocyte % 17.2 % (19-41); Mean Corp Hgb Conc 31.1 g/dL (32-36); Mean Corpuscular Hgb 30.7 pg (27.0-32.0); Mean Corpuscular Volume 98.7 fL (81-99); Mean Platelet Vol. 9.5 fl (6.2-12.0); Monocyte# 0.68 X10^3/uL; NRBC Flagged by Analyzer 0 % (0-5); Neutrophil # 4.95 X10^3/uL (2.7-7.7); Neutrophil % 65.7 % (47-70); Platelet Count 149 K/mm3 (150-450); RBC Distribution Width CV 14.4 % (11.6-14.6); RBC Distribution Width SD 51.6 fl (35.1-43.9); Red Blood Count 3.09 M/mm3 (4.2-5.4); White Blood Count 7.5 K/mm3 (4.4-11.0)
[2024-05-04] MEDS: 0.9% Saline Lock 10 ML Syringe IV ×2 (03:45→10:09)
[2024-05-04] MEDS: Furosemide 100 MG/10 ML Vial 80 MG IV ×2 (03:45→09:59)
[2024-05-04 03:58] LABS: Hemoglobin A1c 6.6 % (<=5.6)
[2024-05-04 04:01] LABS: ALB/GLOB Ratio 1.5 RATIO (0.9-2.4); AST(SGOT) 36 U/L (<=31); Alanine Aminotransfer ALT/SGPT 14 U/L (<=34); Albumin, Serum 3.3 g/dL (3.4-4.8); Alkaline Phosphatase 51 U/L (35-104); Anion Gap 10 (5-15); BUN 53 mg/dL (4-19); BUN/Creat Ratio 24.7 RATIO (10-20); Calcium 9.3 mg/dL (7.6-11.0); Carbon Dioxide 31.6 mmol/L (22.0-29.0); Chloride 99 mmol/L (96-108); Creatinine, Serum 2.1 mg/dL (0.6-1.0); EST Glomerular Filtration Rate 25 (>60); Estimated Creatinine Clearance 31.38 ml/min; Globulin 2.2 g/dL (2.2-4.2); Glucose 68 mg/dL (70-99); Potassium 3.5 mmol/L (3.3-5.1); Pro- Brain NATRIURETIC PEPTIDE 1028 pg/mL (<=900); Protein, Total 5.5 g/dL (5.9-8.4); Sodium Level 141 mmol/L (133-145); Total Bilirubin 0.25 mg/dL (0.00-1.30)
[2024-05-04] MEDS: Albumin Human 25% (50 mL) 12.5 GM/50 ML IV.SOLN IV (04:16)
[2024-05-04 05:11] LABS: Phosphorus 4.4 mg/dL (2.7-4.5)
[2024-05-04] MEDS: Levothyroxine 100 MCG Tablet PO (05:55)
[2024-05-04] MEDS: Nystatin Powder 15gm Bottle 1 APPLIC TOPICAL ×3 (05:56→21:17)
[2024-05-04] MEDS: Gabapentin 300 MG Capsule PO ×3 (05:59→21:17)
[2024-05-04 06:24] LABS: Valproic Acid (Depakene) Level 29 ug/mL (50-100)
[2024-05-04 07:15] LABS: Troponin T High Sensitivity 113 ng/L (<=14)
[2024-05-04] MEDS: Ipratropium/Albuterol Sulfate 3 ML AMPUL.NEB INHALATION ×3 (07:56→19:32)
--- NOTE | 2024-05-04 08:13 | PCM.PN.HOSP ---
Reason for Visit Reason for Visit: Shortness of breath and weight gain Subjective Subjective Patient reports in the last month or so she has gained a considerable amount of weight and has had lower extremity swelling as well as hand swelling. She feels like she has gained a lot of fluid. Has had shortness of breath with orthopnea. Objective Data Objective Data Vital Signs: Vital Signs Temp Pulse Resp BP Pulse Ox O2 Del Method O2 Flow Rate 97.4 F L 67 18 102/43 L 93 Nasal Cannula 5 05/04/24 06:05 05/04/24 07:58 05/04/24 07:58 05/04/24 06:05 05/04/24 07:58 05/04/24 07:58 05/04/24 07:58 Oxygen Flow Rate (L/min) 5 Oxygen Delivery Method Nasal Cannula Weight: 105 kg Body Mass Index (BMI) 41.0 Intake & Output: Intake and Output for Last 24 Hours 05/02/24 05/03/24 05/04/24 23:59 23:59 23:59 Intake Total 50 / 50 Output Total 1000 / 1000 310 / 310 Balance -1000 / -1000 -260 / -260 Lab / Micro Data 05/04/24 03:10 05/04/24 03:10 Labs: Laboratory Results - last 24 hr 05/03/24 17:30: WBC 7.8, RBC 3.48 L, Hgb 10.8 L, Hct 34.3 L, MCV 98.6, MCH 31.0, MCHC 31.5 L, RDW Std Deviation 51.6 H, RDW Coeff of Penny 14.4, Plt Count 178, MPV 9.9, Immature Gran % (Auto) 0.400, Neut % (Auto) 70.9 H, Lymph % (Auto) 13.5 L, [place] % (Auto) 7.7, Eos % (Auto) 6.9 H, Baso % (Auto) 0.6, Absolute Neuts (auto) 5.5, Absolute Lymphs (auto) 1.05, Nucleated RBC % 0, Sodium 141, Potassium 4.0, Chloride Direct 99, Carbon Dioxide 31.3 H, Anion Gap 11, BUN 54 H, Creatinine 2.2 H, Estim Creat Clear Calc 29.95, Est GFR (MDRD) Non-Af 25 L, BUN/Creatinine Ratio 25.3 H, Glucose 78, Calcium 9.9, Magnesium 2.0, Troponin T High Sens 111 H*, NT pro BNP II 992 H, TSH 3.240 05/04/24 03:10: WBC 7.5, RBC 3.09 L, Hgb 9.5 L, Hct 30.5 L, MCV 98.7, MCH 30.7, MCHC 31.1 L, RDW Std Deviation 51.6 H, RDW Coeff of Penny 14.4, Plt Count 149 L, MPV 9.5, Immature Gran % (Auto) 0.400, Neut % (Auto) 65.7, Lymph % (Auto) 17.2 L, [place] % (Auto) 9.0, Eos % (Auto) 7.2 H, Baso % (Auto) 0.5, Absolute Neuts (auto) 5.0, Absolute Lymphs (auto) 1.30, Nucleated RBC % 0, Sodium 141, Potassium 3.5, Chloride Direct 99, Carbon Dioxide 31.6 H, Anion Gap 10, BUN 53 H, Creatinine 2.1 H, Estim Creat Clear Calc 31.38, Est GFR (MDRD) Non-Af 25 L, BUN/Creatinine Ratio 24.7 H, Glucose 68 L, Hemoglobin A1c 6.6, Calcium 9.3, Phosphorus 4.4, Total Bilirubin 0.25, AST 36 H, ALT 14, Alkaline Phosphatase 51, Troponin T High Sens 113 H*, NT pro BNP II 1028 H, Total Protein 5.5 L, Albumin 3.3 L, Globulin 2.2, Albumin/Globulin Ratio 1.5, Valproic Acid 29 L Radiography Diagnostic Testing: Radiology Impression Chest X-Ray 05/03/24 19:34 IMPRESSION: No acute cardiopulmonary process is demonstrated. If there is persistent pain or clinical concern, short-term follow-up chest CT evaluation may be considered. Reading [facility] Rhythm Strip Rhythm Strip: Sinus Rhythm Rate: 66 Ectopy: None Physical Exam Const alert, oriented x3, no apparent distress and well nourished; Negative for average body habitus or healthy appearing Constitutional Narrative: Morbidly obese, upper middle-aged, white female who appears older than stated age, lying in bed, currently appears comfortable and nontoxic, daughter at bedside, stable on supplemental oxygen with no signs of respiratory extremis. HEENT head/scalp atraumatic, moist oral mucous membranes and oropharynx normal HEENT Narrative: Mallampati 3, no thrush Resp normal respiratory effort, no retractions, no use of accessory muscles and No clear to auscultation bilaterally Resp Narrative: Scattered crackles with worse at bases bilaterally Auscultation: rales; Negative for rhonchi or wheezes Cardio regular rate, regular rhythm, S1 normal heart sound, S2 normal heart sound, no murmurs, no rub, no gallops and no clicks GI normal to inspection, nondistended, normoactive bowel sounds, soft to palpation and non-tender Extremity Extremity Narrative: Bilateral lower extremity 1-2+ pitting edema, erythema bilateral lower extremities consistent with venous stasis, no cyanosis or clubbing, bilateral hand swelling that is pitting in nature with anasarca noted Neuro oriented x3, moves all extremities and no focal motor deficits Neuro Narrative: Generalized weakness with no focal deficits Speech: speech normal Psych Psych Narrative: Affect is flat but patient interacts appropriately and is very pleasant Assessment & Plan Assessment/Plan (1) Elevated troponin: (2) Edema, peripheral: (3) Hypoxia: (4) Elevated brain natriuretic peptide (BNP) level: PLAN: Plan Acute hypoxia secondary to heart failure of unknown type -Continue Lasix but transition from bolus Lasix to Lasix drip -Fluid restriction to 1500 cc daily -Sodium restriction 2 g daily -Daily weights -Accurate I's and O's -Check echocardiogram -Patient with about a 20 kg weight gain in the last month and marked anasarca on presentation -UA is not consistent with nephrotic syndrome -Patient is not oxygen dependent at baseline but currently requiring 3 L nasal cannula -Wean as able with diuresis -Will need ambulatory pulse ox prior to discharge -CT of the chest was performed and does show groundglass changes consistent with volume overload Troponin elevation -Suspect elevated due to acute heart failure -Echocardiogram pending with no further workup if no wall motion abnormality is noted and ejection fraction is stable -Likely demand related Chronic anemia/thrombocytopenia -Follows with hematology -Anemia is consistent with iron deficiency -Hemoglobin is stable and patient did receive outpatient iron supplementation -Plan is for colonoscopy with GI on May 25, 2024 -Platelets had been relatively stabilized however low normal and currently 149,000 however this should improve with diuresis Chronic low back pain secondary to L4-L5 severe lumbar stenosis with neurogenic claudication -Patient with recent laminectomy in March 2023 -As needed pain medication as needed COPD -As needed nebulizers -Continue incentive spirometry -Out of bed and early mobility important -Patient is not O2 dependent baseline GERD -Continue home PPI Hypothyroidism -Continue home levothyroxine Urinary incontinence -Continue home Detrol DM-2 -A1c 6.6 on 05/04/2024 with stable hemoglobin -Restart home Jardiance -Basal insulin at 12 units and monitor blood sugars--> appears baseline is 20 units will uptitrate as needed -Accu-Cheks as ordered Chronic pain/neuropathy -Continue home medications as deemed appropriate per primary since he is managing acute pain medication Obesity -BMI is 41.0 -Recommend weight loss -Complicates treatment, prognosis, outcomes Hyperlipidemia -Continue atorvastatin History of paroxysmal atrial fibrillation -Patient is not on anything for rate control -Continue home apixaban IBS -Restart home Linzess at discharge Urinary continence -Continue home oxybutynin Schizoaffective disorder/tardive dyskinesia/insomnia -Continue aripiprazole -Continue valproic acid -Continue home Valbenazine -Continue trazodone Tobacco abuse -Nicotine patch DVT prophylaxis -Per primary service Charges/Coding Visit Charges Inpatient E&M: 08289 Subs Hosp L2
[2024-05-04 08:30] LABS: Bedside Glucose 58 mg/dL (74-106)
[2024-05-04 08:31] LABS: Bedside Glucose 75 mg/dL (74-106)
--- NOTE | 2024-05-04 09:04 | CT_ITS ---
PROCEDURE: CHEST WITHOUT CONTRAST REASON FOR EXAM: COPD. TECHNIQUE: Chest CT without contrast. COMPARISON: Comparison is made with prior study dated September 14, 2023. FINDINGS: Hardware: None. Lymph nodes: Small benign-appearing mediastinal lymph nodes. Heart and Vasculature: Normal heart size. No pericardial effusion. Atherosclerotic calcifications of the thoracic aorta. Thoracic aorta and pulmonary arteries have normal contours; noncontrast technique limits evaluation. Coronary Artery Calcifications: Present Lungs and Airways: Patchy bibasilar pulmonary infiltrates worse at the left lung base. Pleura: No pleural effusion. No pneumothorax. Upper Abdomen: Visualized portions of the upper abdominal viscera are unremarkable. Bones: Degenerative changes of the thoracic spine. CT/Chest without Contrast IMPRESSION: Patchy bibasilar pulmonary infiltrates worse at the left lung base. One or more dose reduction techniques were used (e.g., Automated exposure contr ol, adjustment of the mA and/or kV according to patient size, use of iterative reconstruction technique). Reading Location: [facility]
--- NOTE | 2024-05-04 09:15 | CASEMGMT ---
Discharge Planning [facility] confirmed that pt still resides in [place]. Caro Shay DC Planning Asst.
[2024-05-04] MEDS: APIXABAN 5 MG TABLET PO ×2 (09:58→21:17)
[2024-05-04] MEDS: Tolterodine Tartrate 2 MG CAP.SA PO (09:58)
[2024-05-04] MEDS: Pantoprazole Sodium 40 MG Tablet PO (09:59)
[2024-05-04] MEDS: Acetaminophen 325 MG Tablet 650 MG PO (09:59)
[2024-05-04] MEDS: Methocarbamol 750 MG Tablet PO (09:59)
[2024-05-04] MEDS: Atropine Sulfate 1% 2 ml Bottle 1 DRP PO ×2 (10:02→21:17)
[2024-05-04] MEDS: Menthol/Lanolin/Calamine/Znox 113 GM Tube 1 APPLIC TOPICAL ×4 (10:03→21:19)
--- NOTE | 2024-05-04 10:19 | PCM.CONS.C ---
Assessment & Plan Assessment/Plan (1) Chronic anticoagulation: PLAN: Patient is on long-term Eliquis due to history of paroxysmal atrial fibrillation. She denies any nuisance bleeding however hemoglobin is 9.5 this morning. Currently the patient is in sinus rhythm and the oral anticoagulation could be interrupted as indicated. (2) Chronic kidney disease: QUALIFIERS: Chronic kidney disease stage: stage 4 (GFR 15-29) Qualified Code(s): N18.4 - Chronic kidney disease, stage 4 (severe) PLAN: Patient's GFR is currently 25 with a BUN of 53 and creatinine of 2.1. The patient's diuretics had recently been dropped from 80 mg twice daily to 40 mg in the morning 20 mg in the afternoon this preceded the starting of her weight gain. (3) Heart failure: QUALIFIERS: Heart failure type: diastolic Heart failure chronicity: acute on chronic Qualified Code(s): I50.33 - Acute on chronic diastolic (congestive) heart failure PLAN: Patient carries a history of heart failure with preserved ejection fraction. She also has chronic venous stasis disease but she now has a 27 pound weight gain temporally correlated with IV medications for her diverticulitis and a drop in her oral diuretic therapy. Recommend utilizing compression treatments for the patient's lower extremity edema and continue with IV diuresis per the primary service. (4) Chronic venous insufficiency: PLAN: Patient's chronic venous insufficiency is longstanding she is status post vein stripping remotely. Compression treatment should be considered she has had these successfully performed in the past. (5) Paroxysmal atrial fibrillation: PLAN: Currently the patient is in normal sinus rhythm. She remains on oral anticoagulation therapy she is on no antiarrhythmic therapy or rate control medical therapy in her home environment. (6) Elevated troponin: PLAN: Initial troponin was 111 direct delta troponin 113 on the high-sensitivity troponin T's. The patient has no chest symptoms of angina. Her EKG shows no ischemic changes. I do not feel that this represents any significant acute coronary syndrome. A 2D echocardiogram is pending and further recommendations be forthcoming once that is available. PLAN: Plan 1. Follow-up on 2D echocardiogram results. 2. Continue current diuresis. 3. Further discussion concerning CODE STATUS should be undertaken. The patient request not to be on a ventilator when I was in the room with her sisters on the phone. HPI Consult Data Date of Consult: 05/04/24 HPI Narrative HPI Narrative: JADE SWANSON, is a 63 F who presents patient presented with approximately 2 weeks history of unintentional 27 pounds of weight gain. She noticed lower extremity edema and chronic shortness of breath. The patient was just discharged on 05/02/2024 from [facility]. She had been admitted there for diverticulitis and treated with antibiotics. Currently the patient is resting comfortably in the bed she does have a significant tremor which is chronic. The patient has a long history of multiple comorbidities states including hyperlipidemia, hypothyroidism, morbid obesity with a BMI of 41, diabetes mellitus coronary disease status post remote MT which I do not have characterized as any treatment for that. History of diastolic heart failure with a preserved EF last echo June 2023 EF was 60%. History of paroxysmal atrial fibrillation on Eliquis. Last EKG in April 23, 2024 was read as atrial fibrillation however upon review this is artifact related to the patient's tremor and she is actually in sinus rhythm. EKG today also shows sinus rhythm at 66 bpm and is otherwise normal. There is no evidence of ischemic changes. The patient also has a history of substance abuse disorder and chronic kidney disease. Baseline creatinine is around 1.9. The patient tells me she does not want to be kept alive on a ventilator. She enunciated this while her sisters were on the phone. Currently the patient is denying any chest pain she reports she is breathing well now. Her biggest complaint is her lower extremity edema which in retrospect is chronic and related to venous stasis disease primarily. She is status post vein stripping remotely and in the past had been treated with compression therapy. The patient is on an extensive list of medications. [facility] Medical History Left shoulder pain Wears hearing aid Post-menopausal Depression Anxiety History of steroid therapy Walker as ambulation aid Kidney stones Arthritis Back pain History of IBS Former smoker COPD (chronic obstructive pulmonary disease) Shortness of breath on exertion Thyroid disease History of heart attack History of stress test History of echocardiogram Low platelet count Anemia History of ESBL E. coli infection Morbid obesity with BMI of 40.0-44.9, adult Congestive heart failure Peripheral edema History of CHF (congestive heart failure) History of atrial fibrillation History of hypertension Chest pain of uncertain etiology Bradycardia History of tobacco use History of diabetes mellitus, type II History of COPD Acute hypotension Pulmonary hypertension, secondary Abdominal ascites Diverticulitis large intestine w/o perforation or abscess w/bleeding Pericardial effusion with cardiac tamponade Chronic kidney disease History of cardiac arrest Chest pain Wears glasses Wears dentures Substance abuse Alcohol use Rash Gout High cholesterol PVD (peripheral vascular disease) Easy bruising Seizures Dietary restriction Gastric reflux Injury of back Vapes nicotine containing substance Fall History of pain when walking History of edema Insomnia Major depression On home oxygen therapy Emphysema, unspecified Neuropathy Cardiology follow-up encounter History of ulceration DKA (diabetic ketoacidosis) Cardiac arrest senior care current use of anticoagulant Encounter for infusaport central venous catheter removal Lichen sclerosus Macular degeneration Essential hypertension Decreased left ventricular function Paroxysmal atrial fibrillation Diverticulosis Migraine Iron deficiency anemia COPD (chronic obstructive pulmonary disease) Port-A-Cath in place Acid reflux IBS (irritable bowel syndrome) CHF (congestive heart failure) Neuropathy Kidney failure Hypothyroid Schizoaffective disorder, bipolar type Emphysema lung Diabetes Heart attack Home Medications ?Medication ?Instructions ?Recorded ?Last Taken ?Type apixaban 5 mg tablet (Eliquis) 5 mg PO BID blood thinner 12/24/22 03/15/24 History atorvastatin 20 mg tablet 20 mg PO DAILY cholesterol 12/24/22 07/27/23 History gabapentin 300 mg capsule 300 mg PO TID nerve pain 12/25/22 07/27/23 History trazodone 100 mg tablet 100 mg PO QHS sleep 01/01/23 07/26/23 History aripiprazole 20 mg tablet 20 mg PO QHS mental health 03/09/23 03/18/24 History fluticasone propionate 50 1 spray intranasal DAILY PRN 04/27/23 Unknown History mcg/actuation nasal allergy symptoms spray,suspension divalproex 500 mg tablet,extended 500 mg PO QHS seizure 07/25/23 07/27/23 History release 24 hr levothyroxine 100 mcg tablet 100 mcg PO DAILY thyroid 07/25/23 07/27/23 History oxybutynin chloride 5 mg 5 mg PO DAILY bladder 07/25/23 07/27/23 History tablet,extended release 24 hr insulin glargine 100 unit/mL (3 20 unit subcut DAILY diabetes 10/13/23 Unknown History mL) subcutaneous pen (Lantus Solostar U-100 Insulin) clotrimazole-betamethasone 1 1 applic topical BID skin 12/24/23 Unknown History %-0.05 % topical cream irritation diclofenac sodium 1 % topical gel 2 g topical ONCE 12/24/23 Unknown History empagliflozin 25 mg tablet 25 mg PO QAM diabetes 12/24/23 03/17/24 History (Jardiance) epinephrine 0.3 mg/0.3 mL 0.3 mg IM ONCE allergic reaction 12/24/23 Unknown History injection, auto-injector (EpiPen 2-Wayne) meloxicam 7.5 mg tablet 7.5 mg PO QDAY PRN pain 12/24/23 Unknown History pantoprazole 40 mg tablet,delayed 40 mg PO QDAY acid reflux 12/24/23 Unknown History release nystatin 100,000 unit/gram topical 1 applic topical BID skin 01/06/24 Unknown History powder irritation valbenazine 80 mg capsule 80 mg PO HS 01/06/24 Unknown History (Ingrezza) buprenorphine 10 mcg/hour weekly 1 patch topical QWEEK 03/07/24 03/19/24 History transdermal patch docusate sodium 100 mg capsule 100 mg PO BID PRN constipation 03/07/24 Unknown History (Colace) nicotine 1 patch topical DAILY 03/07/24 Unknown History 21mg/24hr-14mg/24hr-7mg/24hr daily transderm patches,sequentl tobramycin 0.3 %-dexamethasone 1 drp ophthalmic (eye) .Q4-6H 03/07/24 Unknown History 0.05 % eye drops,suspension (Tobradex ST) linaclotide 145 mcg capsule 145 mcg PO QAM #60 caps 03/10/24 Unknown Rx (Linzess) sodium sul 1.479 gram-potas ch See Rx Instructions PO PER PKG DIR 03/10/24 Unknown Rx 0.188 gram-magnes sul 0.225 gram #24 tabs tablet (Sutab) methocarbamol 500 mg tablet 500 mg PO 4X/DAY PRN Muscle 03/16/24 Unknown Rx pain/spasm #40 tabs sennosides 8.6 mg-docusate sodium 2 tab PO BID PRN constipation #30 03/21/24 Unknown Rx 50 mg tablet (Stimulant Laxative tabs Plus) hydrocodone-acetaminophen 5-325mg 1 tab PO Q6H PRN pain 5 days #20 03/28/24 Unknown Rx 5mg-325mg tabs fluticasone fur. 100 mcg-umeclid 1 inh inhalation Q24H #60 ea 03/31/24 Unknown Rx 62.5 mcg-vilant 25 mcg inhalat.powder (Trelegy Ellipta) prednisone 10 mg tablet 10 mg PO DIRECTED #13 tabs 03/31/24 Unknown Rx ciprofloxacin HCl 500 mg tablet 500 mg PO QDAY 05/01/24 Unknown History metronidazole 500 mg tablet 500 mg PO Q8H 05/01/24 Unknown History methocarbamol 500 mg tablet 750 mg (1.5 x 500 mg) PO TID PRN 05/02/24 Unknown Rx pain/spasms #30 tabs atropine 1 % eye drops 1 drp PO BID 05/03/24 Unknown History furosemide 80 mg tablet (Lasix) 80 mg PO DAILY 05/03/24 Unknown History peg 400-propylene glycol 0.4 %-0.3 1 drp EACH EYE DAILY PRN dry eye(s) 05/03/24 Unknown History % eye drops (Lubricant Eye (PG-PEG 400)) sodium sul 1.479 gram-potas ch 1 tab PO PER PKG DIR #24 tabs 05/03/24 Unknown Rx 0.188 gram-magnes sul 0.225 gram tablet (Sutab) Allergy/AdvReac Type Severity Reaction Status Date / Time aspirin Allergy Mild Hives Verified 05/03/24 16:16 erythromycin base Allergy Mild Hives Verified 05/03/24 16:16 Penicillins Allergy Mild Hives Verified 05/03/24 16:16 polyethylene glycol 3350 Allergy Mild Nausea/Vom/ Verified 05/03/24 16:16 (From Miralax) Diarrhea tramadol Allergy Mild Hives Verified 05/03/24 16:16 tomato Allergy Food Verified 05/03/24 16:16 Allergy Family History Mother Heart disease Hypertension Cancer Father Brain aneurysm age 40 CVA (cerebral vascular accident) Cancer Brother Colon cancer Surgical History Hx of surgical procedure History of bilateral knee replacement Hx of vein stripping Hx of toe surgery History of lithotripsy History of delivery History of bilateral cataract extraction History of cholecystectomy H/O: hysterectomy Social History household members: caregiver Smoking Status: Former smoker Tobacco: How many years used: 18 Electronic Cigarette Use: with nicotine second hand exposure: No alcohol intake: never substance use type: does not use caffeine: Yes ROS Constitutional Constitutional: Reports as per HPI Eyes Eyes: Reports systems reviewed and no addt'l complaints, except as documented ENT HEENT: Reports systems reviewed and no addt'l complaints, except as documented Cardiovascular Cardiovascular: Reports as per HPI Respiratory/Chest Respiratory/Chest: Reports as per HPI Gastrointestinal Gastrointestinal: Reports as per HPI Genitourinary Genitourinary: Reports as per HPI Musculoskeletal Musculoskeletal: Reports as per HPI Integumentary Integumentary: Reports systems reviewed and no addt'l complaints, except as documented Neurologic Neurologic: Reports systems reviewed and no addt'l complaints, except as documented Psychiatric Psychiatric: Reports systems reviewed and no addt'l complaints, except as documented Endocrine Endocrinology: Reports as per HPI Hematologic/Lymphatic Hematologic/Lymphatic: Reports systems reviewed and no addt'l complaints, except as documented Allergic/Immunologic Allergic/Immunologic: Reports systems reviewed and no addt'l complaints, except as documented Physical Exam Const alert and oriented x3 HEENT normocephalic Eyes PERRL Neck no carotid bruits Neck Narrative: Thick neck with no bruits. Chest Chest Narrative: Increased AP diameter. Resp normal respiratory effort Auscultation: crackles bilateral lower Cardio Cardio Narrative: Distant heart tones due to body habitus. Rate: regular rate Rhythm: regular rhythm Heart Sounds: S1 normal and S2 normal; Negative for click, gallop or murmur GI GI Narrative: Morbidly obese. Extremity Extremity Narrative: Bilateral brawny edematous changes bilateral knee surgery incision scars. 2+ edema General Extremity: edema bilateral lower extremity Details: moderate Skin Skin Narrative: Hyperpigmentation noted on the lower extremities. Neuro Neuro Narrative: Alert and oriented x 3 Psych mental status grossly normal Risk Stratification Risk Stratification Applicable: Yes Age >/= 65: No >/= 3 CAD Risk Factors (HTN, HLD, DM, family hx of CAD, or current smoker): Yes Aspirin Use in the Past 7 Days: No Severe Angina (>/= episodes in 24 hours): No EKG ST Changes >/= 0.5mm: No Positive Cardiac Marker: Yes JAQUELIN Risk Stratification Score: 2 JAQUELIN % Risk: 8% Risk Charges/Coding Visit Charges Inpatient E&M: 76885 Init Hosp L3 Objective Data Vital Signs: Vital Signs Temp Pulse Resp BP Pulse Ox O2 Del Method O2 Flow Rate 97.6 F L 79 18 119/35 L 100 Nasal Cannula 3 05/04/24 09:39 05/04/24 09:39 05/04/24 09:39 05/04/24 09:39 05/04/24 09:39 05/04/24 09:39 05/04/24 09:39 Oxygen Flow Rate (L/min) 3 Oxygen Delivery Method Nasal Cannula Weight: 231 lb 7.766 oz Body Mass Index (BMI) 41.0 Intake & Output: Intake and Output for Last 24 Hours 05/02/24 05/03/24 05/04/24 23:59 23:59 23:59 Intake Total 50 / 50 Output Total 1000 / 1000 310 / 310 Balance -1000 / -1000 -260 / -260 Lab / Micro Data Attestation: I reviewed the patient's lab results. 05/04/24 03:10 05/04/24 03:10 Labs: Laboratory Results - last 24 hr 05/03/24 17:30: WBC 7.8, RBC 3.48 L, Hgb 10.8 L, Hct 34.3 L, MCV 98.6, MCH 31.0, MCHC 31.5 L, RDW Std Deviation 51.6 H, RDW Coeff of Pneny 14.4, Plt Count 178, MPV 9.9, Immature Gran % (Auto) 0.400, Neut % (Auto) 70.9 H, Lymph % (Auto) 13.5 L, [place] % (Auto) 7.7, Eos % (Auto) 6.9 H, Baso % (Auto) 0.6, Absolute Neuts (auto) 5.5, Absolute Lymphs (auto) 1.05, Nucleated RBC % 0, Sodium 141, Potassium 4.0, Chloride Direct 99, Carbon Dioxide 31.3 H, Anion Gap 11, BUN 54 H, Creatinine 2.2 H, Estim Creat Clear Calc 29.95, Est GFR (MDRD) Non-Af 25 L, BUN/Creatinine Ratio 25.3 H, Glucose 78, Calcium 9.9, Magnesium 2.0, Troponin T High Sens 111 H*, NT pro BNP II 992 H, TSH 3.240 05/04/24 03:10: WBC 7.5, RBC 3.09 L, Hgb 9.5 L, Hct 30.5 L, MCV 98.7, MCH 30.7, MCHC 31.1 L, RDW Std Deviation 51.6 H, RDW Coeff of Penny 14.4, Plt Count 149 L, MPV 9.5, Immature Gran % (Auto) 0.400, Neut % (Auto) 65.7, Lymph % (Auto) 17.2 L, [place] % (Auto) 9.0, Eos % (Auto) 7.2 H, Baso % (Auto) 0.5, Absolute Neuts (auto) 5.0, Absolute Lymphs (auto) 1.30, Nucleated RBC % 0, Sodium 141, Potassium 3.5, Chloride Direct 99, Carbon Dioxide 31.6 H, Anion Gap 10, BUN 53 H, Creatinine 2.1 H, Estim Creat Clear Calc 31.38, Est GFR (MDRD) Non-Af 25 L, BUN/Creatinine Ratio 24.7 H, Glucose 68 L, Hemoglobin A1c 6.6, Calcium 9.3, Phosphorus 4.4, Total Bilirubin 0.25, AST 36 H, ALT 14, Alkaline Phosphatase 51, Troponin T High Sens 113 H*, NT pro BNP II 1028 H, Total Protein 5.5 L, Albumin 3.3 L, Globulin 2.2, Albumin/Globulin Ratio 1.5, Valproic Acid 29 L 05/04/24 06:15: POC Glucose 58 L 05/04/24 07:27: POC Glucose 75 Rhythm Strip Rhythm Strip: Sinus Rhythm Rate: 68 Ectopy: None Cardiology Labs/Tests 05/03/24 17:30: WBC 7.8, RBC 3.48 L, Hgb 10.8 L, Hct 34.3 L, MCV 98.6, MCH 31.0, MCHC 31.5 L, Plt Count 178, MPV 9.9, Immature Gran % (Auto) 0.400, Neut % (Auto) 70.9 H, Lymph % (Auto) 13.5 L, [place] % (Auto) 7.7, Eos % (Auto) 6.9 H, Baso % (Auto) 0.6, Absolute Neuts (auto) 5.5, Nucleated RBC % 0, Sodium 141, Potassium 4.0, Carbon Dioxide 31.3 H, Anion Gap 11, BUN 54 H, Creatinine 2.2 H, Est GFR (MDRD) Non-Af 25 L, BUN/Creatinine Ratio 25.3 H, Glucose 78, Calcium 9.9, Magnesium 2.0 05/04/24 03:10: WBC 7.5, RBC 3.09 L, Hgb 9.5 L, Hct 30.5 L, MCV 98.7, MCH 30.7, MCHC 31.1 L, Plt Count 149 L, MPV 9.5, Immature Gran % (Auto) 0.400, Neut % (Auto) 65.7, Lymph % (Auto) 17.2 L, [place] % (Auto) 9.0, Eos % (Auto) 7.2 H, Baso % (Auto) 0.5, Absolute Neuts (auto) 5.0, Nucleated RBC % 0, Sodium 141, Potassium 3.5, Carbon Dioxide 31.6 H, Anion Gap 10, BUN 53 H, Creatinine 2.1 H, Est GFR (MDRD) Non-Af 25 L, BUN/Creatinine Ratio 24.7 H, Glucose 68 L, Hemoglobin A1c 6.6, Calcium 9.3, Phosphorus 4.4, Total Bilirubin 0.25 Rhythm: EKG: ECHO: Stress Test: Cardiac Cath: PCI: CT Surgery: Holter monitor: EPS: PPM: CXR: Chest CT Scan: Radiography Diagnostic Testing: Radiology Impression Chest X-Ray 05/03/24 19:34 IMPRESSION: No acute cardiopulmonary process is demonstrated. If there is persistent pain or clinical concern, short-term follow-up chest CT evaluation may be considered. Reading Location: [facility] Chest CT 05/04/24 09:04 IMPRESSION: Patchy bibasilar pulmonary infiltrates worse at the left lung base. One or more dose reduction techniques were used (e.g., Automated exposure control, adjustment of the mA and/or kV according to patient size, use of iterative reconstruction technique). Reading Location: [id number]
[2024-05-04] MEDS: Furosemide 500 MG in Empty Viaflex 50 mL 1 EACH CONT INF (11:33)
[2024-05-04] MEDS: oxyCODONE 5 MG Tablet PO ×2 (11:36→18:04)
[2024-05-04 12:03] LABS: Bedside Glucose 82 mg/dL (74-106)
--- NOTE | 2024-05-04 14:00 | CASEMGMT ---
HAKEEM DELUNA Assessment: Face to Face with pt for initial transition planning/care coordination assessment. HAKEEM DELUNA introduced self and role at [facility], pt voices understanding and consents to assessment. Pt is A&O x4 and answers all questions appropriately at this time. Pt lying in bed with oxygen on in no distress. Pt is very drowsy but did waken to answer assessment questions. Care providers, pharmacy, and demographics verified/updated. Admitting Dx: AE CHF Strata Score: 3 PCP:Eric Marion [facility] Specialists:oJse, cardio; Alba, nephro; Man, pod; Vanesa, pulm; Jj, ortho Preferred Pharmacy: [facility] Insurance: [facility] Dual Complete, [facility] Prescription Benefit: yes LNOK: Elvira Landry, sister Living Arrangements: Pt lives alone at [facility] with an elevator to enter. Pt reports she can bathe herself and makes her own meals. She states her aide does her laundry and gets groceries. Pt denies concerns at home. Transportation: Pt uses [employer] or her sister for transportation. Pt will ask her sister to take her home from this hospital stay as she needs her portable oxygen tank from her apt to be brought in. DME:walker, rollator, shower chair, cane, O2 through [facility] with portability, pox, DM supplies HHC/SNF: Pt is active with [facility] for SN and PT. Pt also has an aide through [facility] M-F 9a-3p. Pt states no concerns with going home at time of dc. Pt reports she has not been oob yet. Pt is active with [facility]. Email sent to Palliative to make aware of pt hospitalization. Pt would like to resume her HHC and aide services upon dc. Pt denies need for a list of other options for agencies. Pt states no further concerns/needs. CM to follow. Advised pt to ask CM if any further questions/concerns/needs arise, voices understanding. Pt Goal: Home with HHC and aide services to resume as well as Palliative Care. Plan: Home with HHC and aide services to resume as well as Palliative Care pending therapy evals and course of hospitalization. Janet PALACIO CM
--- NOTE | 2024-05-04 14:39 | CASEMGMT ---
Addendum entered by Caro Shay 05/04/24 15:20: Resumption referral sent to N. Caro Shay DC Planning Asst. Original Note: Discharge Planning Per N, pt is active and receiving PT/SN. RN CM updated. Caro Shay DC Planning Asst.
[2024-05-04 16:40] LABS: Bedside Glucose 109 mg/dL (74-106)
[2024-05-04] MEDS: Atorvastatin Calcium 20 MG Tablet PO (21:17)
[2024-05-04] MEDS: traZODone 100 MG Tablet PO (21:17)
[2024-05-04] MEDS: Divalproex (ER) 500 MG Tablet PO (21:17)
[2024-05-04] MEDS: ARIPiprazole 10 MG Tablet 20 MG PO (21:17)
[2024-05-04 22:51] LABS: Bedside Glucose 104 mg/dL (74-106)
[2024-05-05] VITALS (12 sets, daily range): BP systolic 104–120; BP diastolic 37–73; PULSE 60–79; RESP 14–20; TEMP 36.2–36.7; O2SAT 92–100; BMI 39.0
[2024-05-05] MEDS: oxyCODONE 5 MG Tablet PO ×2 (06:15→17:21)
[2024-05-05] MEDS: Gabapentin 300 MG Capsule PO ×3 (06:15→21:18)
[2024-05-05] MEDS: Levothyroxine 100 MCG Tablet PO (06:15)
[2024-05-05] MEDS: Nystatin Powder 15gm Bottle 1 APPLIC TOPICAL ×3 (06:15→21:36)
[2024-05-05 06:36] LABS: Bedside Glucose 67 mg/dL (74-106)
[2024-05-05 07:14] LABS: Bedside Glucose 97 mg/dL (74-106)
--- NOTE | 2024-05-05 07:37 | PCM.PN.HOSP ---
Reason for Visit Reason for Visit: Shortness of breath Subjective Subjective Patient states she feels like her hands are less swollen her legs are not as tight. She states her breathing seems to be better. She is less winded with exertion. Renal function is actually improving on the Lasix drip. Objective Data Objective Data Vital Signs: Vital Signs Temp Pulse Resp BP Pulse Ox O2 Del Method O2 Flow Rate 97.2 F L 74 18 117/48 L 94 Nasal Cannula 4 05/05/24 02:47 05/05/24 02:47 05/05/24 02:47 05/05/24 02:47 05/05/24 02:47 05/05/24 05:47 05/05/24 05:47 Oxygen Flow Rate (L/min) 4 Oxygen Delivery Method Nasal Cannula Weight: 100 kg Body Mass Index (BMI) 39.0 Intake & Output: Intake and Output for Last 24 Hours 05/03/24 05/04/24 05/05/24 23:59 23:59 23:59 Intake Total 530 / 530 Output Total 1000 / 1000 310 / 310 300 / 300 Balance -1000 / -1000 220 / 220 -300 / -300 Lab / Micro Data 05/05/24 08:06 05/05/24 08:06 Labs: Laboratory Results - last 24 hr 05/04/24 06:15: POC Glucose 58 L 05/04/24 07:27: POC Glucose 75 05/04/24 11:39: POC Glucose 82 05/04/24 16:13: POC Glucose 109 H 05/04/24 22:31: POC Glucose 104 05/05/24 06:06: POC Glucose 67 L 05/05/24 06:57: POC Glucose 97 Radiography Diagnostic Testing: Radiology Impression Echocardiogram 05/04/24 00:27 Interpretation Summary The estimated ejection fraction is 65 %. Aortic sclerosis, no stenosis. Ordering Physician: Elliot Zuniga Referring Physician: JULIANNE LAMBERT Performed By: Melvina Cheung RCS Chest CT 05/04/24 09:04 IMPRESSION: Patchy bibasilar pulmonary infiltrates worse at the left lung base. One or more dose reduction techniques were used (e.g., Automated exposure control, adjustment of the mA and/or kV according to patient size, use of iterative reconstruction technique). Reading Location: [facility] Rhythm Strip Rhythm Strip: Sinus Rhythm Rate: 68 Ectopy: None Physical Exam Const alert, oriented x3, no apparent distress and well nourished; Negative for average body habitus or healthy appearing Constitutional Narrative: Morbidly obese, upper middle-aged, white female who appears older than stated age, getting up to the bathroom, appears comfortable, nontoxic, appears less winded than yesterday, aide at bedside General Appearance: cooperative HEENT normocephalic, head/scalp atraumatic, moist oral mucous membranes and oropharynx normal HEENT Narrative: Mallampati 3, no thrush Resp normal respiratory effort, no retractions, no use of accessory muscles and clear to auscultation bilaterally Resp Narrative: Diminished but clear today Auscultation: Negative for rales, rhonchi or wheezes Cardio regular rate, regular rhythm, S1 normal heart sound, S2 normal heart sound, no murmurs, no rub, no gallops and no clicks GI normal to inspection, nondistended, normoactive bowel sounds, soft to palpation and non-tender Extremity Extremity Narrative: Bilateral lower extremity 1+ pitting edema, erythema bilateral lower extremities consistent with venous stasis, no cyanosis or clubbing, hand swelling is much improved as his anasarca Neuro oriented x3, moves all extremities and no focal motor deficits Neuro Narrative: Mild generalized weakness with no focal deficits, ambulates with standby assist to the bathroom using a wheeled walker Speech: speech normal Psych affect normal Psych Narrative: patient interacts appropriately and is very pleasant, eye contact is good Assessment & Plan Assessment/Plan (1) Elevated troponin: (2) Edema, peripheral: (3) Hypoxia: (4) Elevated brain natriuretic peptide (BNP) level: PLAN: Plan Acute hypoxia secondary to heart failure with preserved ejection fraction -Pro-BNP was markedly elevated -Continue Lasix drip -Renal function is normalizing despite diuresis and suspect patient is getting back on Star[place] curve -Down 5 kg since admission -Continue fluid restriction to 1500 cc daily -Continue sodium restriction 2 g daily -Continue Daily weights -Continue accurate I's and O's -Echocardiogram was performed she is EF of 65% with the inability to assess diastolic dysfunction or pulmonary pressure -Highly suspect this is related to diastolic dysfunction and or pulmonary hypertension -Patient is not oxygen dependent at baseline but currently requiring 3-4 L nasal cannula -Wean as able with diuresis -Will need ambulatory pulse ox prior to discharge -CT of the chest was performed and does show groundglass changes consistent with volume overload Troponin elevation -Echocardiogram without any wall motion abnormality and a normal EF -Likely demand related from hypoxia and heart failure with preserved ejection fraction Chronic anemia/thrombocytopenia -Follows with hematology -Anemia is consistent with iron deficiency -Hemoglobin up 1 g with diuresis -Hemoglobin is stable and patient did receive outpatient iron supplementation -Plan is for colonoscopy with GI on May 25, 2024 -Thrombocytopenia has resolved with diuresis Chronic low back pain secondary to L4-L5 severe lumbar stenosis with neurogenic claudication -Patient with recent laminectomy in March 2023 -As needed pain medication as needed COPD -As needed nebulizers -Continue incentive spirometry -Out of bed and early mobility important -Patient is not O2 dependent baseline GERD -Continue home PPI Hypothyroidism -Continue home levothyroxine Urinary incontinence -Continue home Detrol DM-2 -A1c 6.6 on 05/04/2024 with stable hemoglobin -Restart home Jardiance -Basal insulin at 12 units and monitor blood sugars--> appears baseline is 20 units will uptitrate as needed -Fasting sugar this morning is 132 with well-controlled prandial sugars as well -Accu-Cheks as ordered Chronic pain/neuropathy -Continue home medications as deemed appropriate per primary since he is managing acute pain medication Obesity -BMI is 39.1 -Recommend weight loss -Complicates treatment, prognosis, outcomes Hyperlipidemia -Continue atorvastatin History of paroxysmal atrial fibrillation -Patient is not on anything for rate control -Continue home apixaban IBS -Restart home Linzess at discharge Urinary incontinence -Continue home oxybutynin Schizoaffective disorder/tardive dyskinesia/insomnia -Continue aripiprazole -Continue valproic acid -Continue home Valbenazine -Continue trazodone Tobacco abuse -Nicotine patch DVT prophylaxis -Per primary service Charges/Coding Visit Charges Inpatient E&M: 26039 Subs Hosp L2
[2024-05-05 08:49] LABS: Bedside Glucose 113 mg/dL (74-106)
[2024-05-05] MEDS: APIXABAN 5 MG TABLET PO ×2 (08:51→21:20)
[2024-05-05] MEDS: Tolterodine Tartrate 2 MG CAP.SA PO (08:51)
[2024-05-05] MEDS: Menthol/Lanolin/Calamine/Znox 113 GM Tube 1 APPLIC TOPICAL ×2 (08:51→21:36)
[2024-05-05] MEDS: Pantoprazole Sodium 40 MG Tablet PO (08:51)
[2024-05-05 08:59] LABS: Absolute Lymphocyte Count 1.02 X10^3/uL (0.83-4.51); Basophil# 0.06 X10^3/uL; Basophil% 0.8 % (0-1); Eosinophil# 0.47 X10^3/uL; Eosinophils% 6.6 % (0-5); Hematocrit 34.9 % (37-47); Hemoglobin 10.7 g/dL (12.0-15.0); Lymphocyte # 1.02 X10^3/ul (0.83-4.51); Lymphocyte % 14.3 % (19-41); Mean Corp Hgb Conc 30.7 g/dL (32-36); Mean Corpuscular Hgb 30.5 pg (27.0-32.0); Mean Corpuscular Volume 99.4 fL (81-99); Mean Platelet Vol. 9.8 fl (6.2-12.0); Monocyte# 0.56 X10^3/uL; Monocyte% 7.8 % (0-10); NRBC Flagged by Analyzer 0 % (0-5); Neutrophil # 5.01 X10^3/uL (2.7-7.7); Neutrophil % 70.1 % (47-70); Platelet Count 167 K/mm3 (150-450); RBC Distribution Width CV 14.2 % (11.6-14.6); RBC Distribution Width SD 51.1 fl (35.1-43.9); Red Blood Count 3.51 M/mm3 (4.2-5.4); White Blood Count 7.2 K/mm3 (4.4-11.0)
[2024-05-05 10:27] LABS: ALB/GLOB Ratio 1.6 RATIO (0.9-2.4); AST(SGOT) 40 U/L (<=31); Alanine Aminotransfer ALT/SGPT 17 U/L (<=34); Albumin, Serum 3.8 g/dL (3.4-4.8); Alkaline Phosphatase 57 U/L (35-104); Anion Gap 12 (5-15); BUN 43 mg/dL (4-19); BUN/Creat Ratio 22.4 RATIO (10-20); Calcium 9.6 mg/dL (7.6-11.0); Carbon Dioxide 33.9 mmol/L (22.0-29.0); Chloride 95 mmol/L (96-108); Creatinine, Serum 1.91 mg/dL (0.70-1.20); EST Glomerular Filtration Rate 29 (>60); Estimated Creatinine Clearance 33.56 ml/min; Globulin 2.3 g/dL (2.2-4.2); Glucose 132 mg/dL (70-99); Phosphorus 3.8 mg/dL (2.7-4.5); Potassium 3.8 mmol/L (3.3-5.1); Protein, Total 6.1 g/dL (5.9-8.4); Sodium Level 141 mmol/L (133-145); Total Bilirubin 0.34 mg/dL (0.00-1.30)
[2024-05-05] MEDS: Empagliflozin 25 MG Tablet PO (10:40)
[2024-05-05] MEDS: Methocarbamol 750 MG Tablet PO (10:43)
[2024-05-05] MEDS: Insulin Glargine-YFGN 100 UNIT/ML Pen 12 UNIT SC (11:42)
[2024-05-05 12:14] LABS: Bedside Glucose 141 mg/dL (74-106)
--- NOTE | 2024-05-05 14:12 | CASEMGMT ---
HAKEEM DELUNA NOTE: Per email from [facility], pt is active w/them. They have been made aware pt has been admitted to [facility]. Marlena SINGHN HAKEEM CM
[2024-05-05] MEDS: Furosemide 500 MG in Empty Viaflex 50 mL 1 EACH CONT INF (16:01)
[2024-05-05 16:48] LABS: Bedside Glucose 127 mg/dL (74-106)
[2024-05-05] MEDS: Senna/Docusate Sodium 1 Tablet 2 TABLET PO (17:21)
[2024-05-05] MEDS: ARIPiprazole 10 MG Tablet 20 MG PO (21:18)
[2024-05-05] MEDS: Atropine Sulfate 1% 2 ml Bottle 1 DRP PO (21:19)
[2024-05-05] MEDS: Divalproex (ER) 500 MG Tablet PO (21:20)
[2024-05-05] MEDS: Benztropine Mesylate 0.5 MG TABLET PO (21:20)
[2024-05-05] MEDS: traZODone 100 MG Tablet PO (21:20)
[2024-05-05] MEDS: MELATONIN 3 MG TABLET PO (21:21)
[2024-05-05] MEDS: Atorvastatin Calcium 20 MG Tablet PO (21:21)
[2024-05-05] MEDS: Acetaminophen 325 MG Tablet 650 MG PO (21:21)
[2024-05-05] MEDS: 0.9% Saline Lock 10 ML Syringe IV (21:29)
[2024-05-05] MEDS: Insulin Lispro 100 UNIT/ML INSULN.PEN SC (21:35)
[2024-05-05 21:50] LABS: Bedside Glucose 185 mg/dL (74-106)
[2024-05-06] VITALS (8 sets, daily range): BP systolic 97–136; BP diastolic 53–84; PULSE 53–62; RESP 12–16; TEMP 36.1–36.7; O2SAT 94–98; BMI 38.9
[2024-05-06] MEDS: Acetaminophen 325 MG Tablet 650 MG PO ×3 (03:56→22:10)
[2024-05-06] MEDS: Gabapentin 300 MG Capsule PO ×3 (05:49→22:07)
[2024-05-06] MEDS: Levothyroxine 100 MCG Tablet PO (05:49)
[2024-05-06] MEDS: Methocarbamol 750 MG Tablet PO ×2 (05:49→14:51)
[2024-05-06] MEDS: Nystatin Powder 15gm Bottle 1 APPLIC TOPICAL ×3 (05:50→22:03)
[2024-05-06 06:24] LABS: Absolute Neutrophil Count 4.4 X10^3/uL (2.0-7.7); Basophil# 0.03 X10^3/uL; Basophil% 0.4 % (0-1); Eosinophil# 0.46 X10^3/uL; Eosinophils% 6.5 % (0-5); Hematocrit 33.6 % (37-47); Hemoglobin 10.7 g/dL (12.0-15.0); Lymphocyte % 18.5 % (19-41); Mean Corp Hgb Conc 31.8 g/dL (32-36); Mean Corpuscular Hgb 30.9 pg (27.0-32.0); Mean Corpuscular Volume 97.1 fL (81-99); Mean Platelet Vol. 9.8 fl (6.2-12.0); Monocyte% 11.4 % (0-10); NRBC Flagged by Analyzer 0 % (0-5); Neutrophil # 4.43 X10^3/uL (2.7-7.7); Neutrophil % 62.9 % (47-70); Platelet Count 160 K/mm3 (150-450); RBC Distribution Width SD 49.4 fl (35.1-43.9); Red Blood Count 3.46 M/mm3 (4.2-5.4)
[2024-05-06 07:04] LABS: Anion Gap 12 (5-15); BUN 43 mg/dL (4-19); BUN/Creat Ratio 24.1 RATIO (10-20); Calcium 9.9 mg/dL (7.6-11.0); Carbon Dioxide 36.6 mmol/L (22.0-29.0); Chloride 93 mmol/L (96-108); EST Glomerular Filtration Rate 31 (>60); Estimated Creatinine Clearance 35.55 ml/min; Glucose 153 mg/dL (70-99); Magnesium 1.9 mg/dL (1.5-2.2); Potassium 3.3 mmol/L (3.3-5.1); Sodium Level 142 mmol/L (133-145)
[2024-05-06 07:08] LABS: Phosphorus 3.3 mg/dL (2.7-4.5)
[2024-05-06 07:28] LABS: Bedside Glucose 151 mg/dL (74-106)
[2024-05-06 09:18] LABS: Bedside Glucose 120 mg/dL (74-106)
[2024-05-06] MEDS: Benztropine Mesylate 0.5 MG TABLET PO ×2 (09:41→22:02)
[2024-05-06] MEDS: Pantoprazole Sodium 40 MG Tablet PO (09:41)
[2024-05-06] MEDS: Empagliflozin 25 MG Tablet PO (09:41)
[2024-05-06] MEDS: APIXABAN 5 MG TABLET PO ×2 (09:42→22:01)
[2024-05-06] MEDS: Insulin Glargine-YFGN 100 UNIT/ML Pen 12 UNIT SC (09:43)
[2024-05-06] MEDS: Tolterodine Tartrate 2 MG CAP.SA PO (09:43)
[2024-05-06] MEDS: Atropine Sulfate 1% 2 ml Bottle 1 DRP PO ×2 (09:44→22:00)
[2024-05-06] MEDS: Clotrimazole/Betamethasone 1 Tube 1 APPLIC TOPICAL ×2 (09:52→22:00)
[2024-05-06] MEDS: Menthol/Lanolin/Calamine/Znox 113 GM Tube 1 APPLIC TOPICAL ×4 (09:56→22:03)
[2024-05-06 12:45] LABS: Bedside Glucose 130 mg/dL (74-106)
[2024-05-06] MEDS: Potassium Chloride Oral Tablet 20 MEQ 40 MEQ PO (12:49)
[2024-05-06] MEDS: Senna/Docusate Sodium 1 Tablet 2 TABLET PO (14:21)
--- NOTE | 2024-05-06 14:28 | PCM.PN.HOSP ---
Reason for Visit Reason for Visit: Swelling/shortness of breath/weight gain Subjective Subjective Patient sleeping but awakens briefly for my exam, states that she is overall feeling better. Swelling seems to be much improved. No complaints today. Does ask when she will be able to go home and I told her probably another 24 to 48 hours depending on her swelling and her respiratory status. Objective Data Objective Data Vital Signs: Vital Signs Temp Pulse Resp BP Pulse Ox O2 Del Method O2 Flow Rate 97 F L 54 L 16 117/53 L 94 Nasal Cannula 2 05/06/24 13:44 05/06/24 13:44 05/06/24 13:44 05/06/24 13:44 05/06/24 13:44 05/06/24 13:44 05/06/24 13:44 Oxygen Flow Rate (L/min) 2 Oxygen Delivery Method Nasal Cannula Weight: 99.7 kg Body Mass Index (BMI) 38.9 Intake & Output: Intake and Output for Last 24 Hours 05/04/24 05/05/24 05/06/24 23:59 23:59 23:59 Intake Total 530 / 530 428.47 / 428.47 640 / 640 Output Total 310 / 310 1300 / 2000 1100 / 1100 Balance 220 / 220 -871.53 / -1571.53 -460 / -460 Lab / Micro Data 05/06/24 05:50 05/06/24 05:50 Labs: Laboratory Results - last 24 hr 05/05/24 15:58: POC Glucose 127 H 05/05/24 21:25: POC Glucose 185 H 05/06/24 05:50: WBC 7.0, RBC 3.46 L, Hgb 10.7 L, Hct 33.6 L, MCV 97.1, MCH 30.9, MCHC 31.8 L, RDW Std Deviation 49.4 H, RDW Coeff of Penny 14.0, Plt Count 160, MPV 9.8, Immature Gran % (Auto) 0.300, Neut % (Auto) 62.9, Lymph % (Auto) 18.5 L, [place] % (Auto) 11.4 H, Eos % (Auto) 6.5 H, Baso % (Auto) 0.4, Absolute Neuts (auto) 4.4, Absolute Lymphs (auto) 1.30, Nucleated RBC % 0, Sodium 142, Potassium 3.3, Chloride Direct 93 L, Carbon Dioxide 36.6 H, Anion Gap 12, BUN 43 H, Creatinine 1.80 H, Estim Creat Clear Calc 35.55, Est GFR (MDRD) Non-Af 31 L, BUN/Creatinine Ratio 24.1 H, Glucose 153 H, Calcium 9.9, Phosphorus 3.3, Magnesium 1.9 05/06/24 07:04: POC Glucose 151 H 05/06/24 08:50: POC Glucose 120 H 05/06/24 11:27: POC Glucose 130 H Rhythm Strip Rhythm Strip: Sinus Rhythm Rate: 68 Ectopy: None Physical Exam Const alert, oriented x3, no apparent distress and well nourished; Negative for average body habitus or healthy appearing Constitutional Narrative: Morbidly obese, upper middle-aged, lying in bed sleeping, awakens briefly for exam and appears comfortable, nontoxic General Appearance: cooperative HEENT normocephalic, head/scalp atraumatic, moist oral mucous membranes and oropharynx normal HEENT Narrative: No thrush, Mallampati 3 Resp normal respiratory effort, no retractions, no use of accessory muscles and clear to auscultation bilaterally Resp Narrative: Diminished but clear today Auscultation: Negative for rales, rhonchi or wheezes Cardio regular rate, regular rhythm, S1 normal heart sound, S2 normal heart sound, no murmurs, no rub, no gallops and no clicks GI normal to inspection, nondistended, normoactive bowel sounds, soft to palpation and non-tender Extremity Extremity Narrative: Bilateral lower extremity pitting edema that is decreasing, erythema is lessening, no cyanosis or clubbing Skin Skin Narrative: Patient has mild erythema of the legs but no evidence of wounds. Neuro oriented x3, moves all extremities and no focal motor deficits Speech: speech normal Psych Psych Narrative: Sleepy today, patient interacts appropriately and is very pleasant, eye contact is good Assessment & Plan Assessment/Plan (1) Elevated troponin: (2) Edema, peripheral: (3) Hypoxia: (4) Elevated brain natriuretic peptide (BNP) level: PLAN: Plan Acute hypoxia secondary to heart failure with preserved ejection fraction -Oxygen has now been weaned to 2 L nasal cannula with sats at 94% -Patient is not O2 dependent baseline -Ambulatory pulse ox prior to discharge -Pro-BNP was markedly elevated on admission -Continue Lasix drip -Renal function continues to improve with diuresis -Down about 6 kg--> baseline weight is about 97 to 98 kg from review of previous records -Continue fluid restriction to 1500 cc daily -Continue sodium restriction 2 g daily -Continue Daily weights -Continue accurate I's and O's -Echocardiogram was performed she is EF of 65% with the inability to assess diastolic dysfunction or pulmonary pressure -Highly suspect this is related to diastolic dysfunction and or pulmonary hypertension -CT of the chest was performed and does show ground-glass changes consistent with volume overload Troponin elevation -Echocardiogram without any wall motion abnormality and a normal EF -Likely demand related from hypoxia and heart failure with preserved ejection fraction Chronic anemia/thrombocytopenia -Follows with hematology -Anemia is consistent with iron deficiency -Hemoglobin is stabilized in the 10-11 range -Hemoglobin is stable and patient did receive outpatient iron supplementation -Plan is for colonoscopy with GI on May 25, 2024 -Thrombocytopenia has resolved with diuresis Chronic low back pain secondary to L4-L5 severe lumbar stenosis with neurogenic claudication -Patient with recent laminectomy in March 2023 -As needed pain medication as needed COPD -As needed nebulizers -Continue incentive spirometry -Out of bed and early mobility important -Patient is not O2 dependent baseline GERD -Continue home PPI Hypothyroidism -Continue home levothyroxine Urinary incontinence -Continue home Detrol DM-2 -A1c 6.6 on 05/04/2024 with stable hemoglobin -Continue home Jardiance -Basal insulin at 12 units and monitor blood sugars--> appears baseline is 20 units will uptitrate as needed -Fasting sugar this morning is 153 today with well-controlled prandial sugars as well -Accu-Cheks as ordered Chronic pain/neuropathy -Continue home medications as deemed appropriate per primary since he is managing acute pain medication Obesity -BMI is 38.9 -Recommend weight loss -Complicates treatment, prognosis, outcomes Hyperlipidemia -Continue atorvastatin History of paroxysmal atrial fibrillation -Remains in sinus rhythm -Patient is not on anything for rate control -Continue home apixaban IBS -Restart home Linzess at discharge Urinary incontinence -Continue home oxybutynin Schizoaffective disorder/tardive dyskinesia/insomnia -Continue aripiprazole -Continue valproic acid -Continue home Valbenazine -Continue trazodone Tobacco abuse -Nicotine patch DVT prophylaxis -Per primary service Charges/Coding Visit Charges Inpatient E&M: 82546 Subs Hosp L2
[2024-05-06] MEDS: Furosemide 500 MG in Empty Viaflex 50 mL 1 EACH CONT INF (14:41)
[2024-05-06] MEDS: Mag Hydrox/Al Hydrox/Simeth 30 ML UDC PO (16:19)
[2024-05-06 16:58] LABS: Bedside Glucose 141 mg/dL (74-106)
[2024-05-06] MEDS: oxyCODONE 5 MG Tablet PO (18:24)
[2024-05-06] MEDS: Magnesium Hydroxide 30 ML UDC PO (18:25)
[2024-05-06] MEDS: 0.9% Saline Lock 10 ML Syringe IV (19:22)
[2024-05-06] MEDS: Ondansetron 4 MG/2 ML Vial IV (19:59)
[2024-05-06] MEDS: Docusate Sodium 100 MG Capsule PO (19:59)
[2024-05-06] MEDS: Atorvastatin Calcium 20 MG Tablet PO (22:00)
[2024-05-06] MEDS: traZODone 100 MG Tablet PO (22:01)
[2024-05-06] MEDS: ARIPiprazole 10 MG Tablet 20 MG PO (22:02)
[2024-05-06] MEDS: Divalproex (ER) 500 MG Tablet PO (22:07)
[2024-05-06 22:08] LABS: Bedside Glucose 136 mg/dL (74-106)
[2024-05-07 03:12] VITALS: BP 121/54; PULSE 55; RESP 20; TEMP 36.6; O2SAT 94
[2024-05-07 04:32] VITALS: BMI 39.0
[2024-05-07] MEDS: Docusate Sodium 100 MG Capsule PO (06:13)
[2024-05-07] MEDS: Levothyroxine 100 MCG Tablet PO (06:13)
[2024-05-07] MEDS: Mag Hydrox/Al Hydrox/Simeth 30 ML UDC PO (06:13)
[2024-05-07] MEDS: Senna/Docusate Sodium 1 Tablet 2 TABLET PO (06:13)
[2024-05-07] MEDS: Gabapentin 300 MG Capsule PO ×3 (06:13→22:11)
[2024-05-07] MEDS: Nystatin Powder 15gm Bottle 1 APPLIC TOPICAL ×3 (06:14→21:58)
[2024-05-07 06:55] LABS: Bedside Glucose 106 mg/dL (74-106)
[2024-05-07 07:29] LABS: Absolute Lymphocyte Count 1.56 X10^3/uL (0.83-4.51); Absolute Neutrophil Count 5.2 X10^3/uL (2.0-7.7); Basophil# 0.05 X10^3/uL; Basophil% 0.6 % (0-1); Eosinophil# 0.48 X10^3/uL; Eosinophils% 6.1 % (0-5); Hemoglobin 11.9 g/dL (12.0-15.0); Lymphocyte # 1.56 X10^3/ul (0.83-4.51); Lymphocyte % 19.7 % (19-41); Mean Corp Hgb Conc 31.3 g/dL (32-36); Mean Corpuscular Hgb 30.8 pg (27.0-32.0); Mean Corpuscular Volume 98.4 fL (81-99); Mean Platelet Vol. 10.1 fl (6.2-12.0); Monocyte# 0.63 X10^3/uL; NRBC Flagged by Analyzer 0 % (0-5); Neutrophil # 5.17 X10^3/uL (2.7-7.7); Neutrophil % 65.3 % (47-70); Platelet Count 181 K/mm3 (150-450); RBC Distribution Width CV 13.8 % (11.6-14.6); RBC Distribution Width SD 49.3 fl (35.1-43.9); Red Blood Count 3.86 M/mm3 (4.2-5.4); White Blood Count 7.9 K/mm3 (4.4-11.0)
[2024-05-07 07:57] LABS: Anion Gap 10 (5-15); BUN 46 mg/dL (4-19); BUN/Creat Ratio 27.8 RATIO (10-20); Calcium 10.5 mg/dL (7.6-11.0); Carbon Dioxide 42.1 mmol/L (22.0-29.0); Chloride 92 mmol/L (96-108); Creatinine, Serum 1.66 mg/dL (0.70-1.20); EST Glomerular Filtration Rate 34 (>60); Estimated Creatinine Clearance 38.59 ml/min (50-250); Glucose 124 mg/dL (70-99); Magnesium 2.5 mg/dL (1.5-2.2); Phosphorus 3.1 mg/dL (2.7-4.5); Sodium Level 144 mmol/L (133-145)
--- NOTE | 2024-05-07 08:25 | PCM.PN.HOSP ---
Reason for Visit Reason for Visit: Shortness of breath Subjective Subjective Patient reports clinically she is feeling much better. States she is noted significant reduction in her swelling and tightness in her legs. Shortness of breath is much better and she is able to lie flat her to sleep. Anxious to go home. Objective Data Objective Data Vital Signs: Vital Signs Temp Pulse Resp BP Pulse Ox O2 Del Method O2 Flow Rate 97.9 F 55 L 20 H 121/54 H 94 Nasal Cannula 2 05/07/24 03:12 05/07/24 03:12 05/07/24 03:12 05/07/24 03:12 05/07/24 03:12 05/07/24 03:15 05/07/24 03:15 Oxygen Flow Rate (L/min) 2 Oxygen Delivery Method Nasal Cannula Weight: 99.9 kg Body Mass Index (BMI) 39.0 Intake & Output: Intake and Output for Last 24 Hours 05/05/24 05/06/24 05/07/24 23:59 23:59 23:59 Intake Total 428.47 / 428.47 662.67 / 1162.67 600 / 600 Output Total 1300 / 2000 1600 / 1600 400 / 400 Balance -871.53 / -1571.53 -937.33 / -437.33 200 / 200 Lab / Micro Data 05/07/24 06:14 05/07/24 06:14 Labs: Laboratory Results - last 24 hr 05/06/24 08:50: POC Glucose 120 H 05/06/24 11:27: POC Glucose 130 H 05/06/24 16:37: POC Glucose 141 H 05/06/24 21:50: POC Glucose 136 H 05/07/24 06:14: WBC 7.9, RBC 3.86 L, Hgb 11.9 L, Hct 38.0, MCV 98.4, MCH 30.8, MCHC 31.3 L, RDW Std Deviation 49.3 H, RDW Coeff of Penny 13.8, Plt Count 181, MPV 10.1, Immature Gran % (Auto) 0.300, Neut % (Auto) 65.3, Lymph % (Auto) 19.7, [place] % (Auto) 8.0, Eos % (Auto) 6.1 H, Baso % (Auto) 0.6, Absolute Neuts (auto) 5.2, Absolute Lymphs (auto) 1.56, Nucleated RBC % 0, Sodium 144, Potassium 4.0, Chloride Direct 92 L, Carbon Dioxide 42.1 H, Anion Gap 10, BUN 46 H, Creatinine 1.66 H, Estim Creat Clear Calc 38.59 L, Est GFR (MDRD) Non-Af 34 L, BUN/Creatinine Ratio 27.8 H, Glucose 124 H, Calcium 10.5, Phosphorus 3.1, Magnesium 2.5 H 05/07/24 06:37: POC Glucose 106 Rhythm Strip Rhythm Strip: Sinus Rhythm Rate: 68 Ectopy: None Physical Exam Const alert, oriented x3, no apparent distress and well nourished; Negative for average body habitus or healthy appearing Constitutional Narrative: Morbidly obese, upper middle-aged, getting up out of bed ambulating to the bathroom with nursing, appears comfortable, nontoxic, no signs of shortness of breath General Appearance: cooperative HEENT normocephalic, head/scalp atraumatic and moist oral mucous membranes HEENT Narrative: Mallampati 3, no thrush Resp normal respiratory effort, no retractions, no use of accessory muscles and clear to auscultation bilaterally Resp Narrative: Diminished but clear today Auscultation: Negative for rales, rhonchi or wheezes Cardio regular rate, regular rhythm, S1 normal heart sound, S2 normal heart sound, no murmurs, no rub, no gallops and no clicks GI normal to inspection, nondistended, normoactive bowel sounds, soft to palpation and non-tender GI Narrative: Large protuberant abdomen Extremity Extremity Narrative: Skin and bilateral lower extremities is starting to show some wrinkling, only minimal erythema present now, no cyanosis or clubbing Neuro oriented x3, moves all extremities and no focal motor deficits Neuro Narrative: And told me she was on her baseline Speech: speech normal Psych affect normal Psych Narrative: Patient very pleasant, makes good eye contact, interacts appropriately Assessment & Plan Assessment/Plan (1) Elevated troponin: (2) Edema, peripheral: (3) Hypoxia: (4) Elevated brain natriuretic peptide (BNP) level: PLAN: Plan Acute hypoxia secondary to heart failure with preserved ejection fraction -Oxygen remains at 2 L with sats in the mid 90s -Patient is not O2 dependent baseline -Ambulatory pulse ox prior to discharge--> I do anticipate patient will need oxygen at discharge -Pro-BNP was markedly elevated on admission -Will continue Lasix drip -Renal function continues to improve despite diuresis -Anticipate transition to oral Lasix tomorrow -Continue fluid restriction to 1500 cc daily -Continue sodium restriction 2 g daily -Continue Daily weights -Continue accurate I's and O's -Echocardiogram was performed she is EF of 65% with the inability to assess diastolic dysfunction or pulmonary pressure -Highly suspect this is related to diastolic dysfunction and or pulmonary hypertension -CT of the chest was performed and does show ground-glass changes consistent with volume overload -Diamox 500 x 1 dose Troponin elevation -Echocardiogram without any wall motion abnormality and a normal EF -Likely demand related from hypoxia and heart failure with preserved ejection fraction Chronic anemia/thrombocytopenia -Follows with hematology -Anemia is consistent with iron deficiency -Hemoglobin is stabilized in the 10-11 range -Hemoglobin is currently on was 12 and I suspect that her lower hemoglobins on presentation was due to dilution from volume overload -Hemoglobin is stable and patient did receive outpatient iron supplementation -Plan is for colonoscopy with GI on May 25, 2024 -Thrombocytopenia has resolved with diuresis Chronic low back pain secondary to L4-L5 severe lumbar stenosis with neurogenic claudication -Patient with recent laminectomy in March 2023 -As needed pain medication as needed COPD -As needed nebulizers -Continue incentive spirometry -Out of bed and early mobility important -Patient is not O2 dependent baseline GERD -Continue home PPI Hypothyroidism -Continue home levothyroxine Urinary incontinence -Continue home Detrol DM-2 -A1c 6.6 on 05/04/2024 with stable hemoglobin -Continue home Jardiance -Basal insulin at 12 units and monitor blood sugars--> appears baseline is 20 units will uptitrate as needed -Fasting sugar this morning is 153 today with well-controlled prandial sugars as well -Accu-Cheks as ordered Chronic pain/neuropathy -Continue home medications as deemed appropriate per primary since he is managing acute pain medication Obesity -BMI is 38.9 -Recommend weight loss -Complicates treatment, prognosis, outcomes Hyperlipidemia -Continue atorvastatin History of paroxysmal atrial fibrillation -Remains in sinus rhythm -Patient is not on anything for rate control -Continue home apixaban IBS -Restart home Linzess at discharge Urinary incontinence -Continue home oxybutynin Schizoaffective disorder/tardive dyskinesia/insomnia -Continue aripiprazole -Continue valproic acid -Continue home Valbenazine -Continue trazodone Tobacco abuse -Nicotine patch DVT prophylaxis -Per primary service Charges/Coding Visit Charges Inpatient E&M: 18019 Subs Hosp L2
[2024-05-07 10:03] VITALS: BP 148/96; PULSE 62; RESP 17; TEMP 36.6; O2SAT 98
[2024-05-07] MEDS: AcetaZOLAMIDE 500 MG/10 ML Vial IV (10:08)
[2024-05-07] MEDS: Pantoprazole Sodium 40 MG Tablet PO (10:11)
[2024-05-07] MEDS: APIXABAN 5 MG TABLET PO ×2 (10:11→21:54)
[2024-05-07] MEDS: Empagliflozin 25 MG Tablet PO (10:11)
[2024-05-07] MEDS: Tolterodine Tartrate 2 MG CAP.SA PO (10:12)
[2024-05-07] MEDS: Insulin Glargine-YFGN 100 UNIT/ML Pen 12 UNIT SC (10:16)
[2024-05-07] MEDS: Menthol/Lanolin/Calamine/Znox 113 GM Tube 1 APPLIC TOPICAL ×3 (10:20→18:00)
[2024-05-07] MEDS: Benztropine Mesylate 0.5 MG TABLET PO ×2 (10:20→21:52)
[2024-05-07] MEDS: Atropine Sulfate 1% 2 ml Bottle 1 DRP PO ×2 (10:24→21:51)
[2024-05-07] MEDS: Clotrimazole/Betamethasone 1 Tube 1 APPLIC TOPICAL ×2 (10:25→21:55)
[2024-05-07] MEDS: Methocarbamol 750 MG Tablet PO (10:37)
[2024-05-07] MEDS: oxyCODONE 5 MG Tablet PO ×2 (10:37→18:00)
[2024-05-07 13:15] VITALS: O2SAT 94
[2024-05-07 13:24] LABS: Bedside Glucose 127 mg/dL (74-106)
[2024-05-07 15:37] VITALS: BP 116/51; PULSE 65; RESP 14; TEMP 36.6; O2SAT 100
[2024-05-07] MEDS: Acetaminophen 325 MG Tablet 650 MG PO ×2 (15:40→22:11)
[2024-05-07 18:14] LABS: Bedside Glucose 127 mg/dL (74-106)
[2024-05-07 21:36] LABS: Bedside Glucose 146 mg/dL (74-106)
[2024-05-07] MEDS: ARIPiprazole 10 MG Tablet 20 MG PO (21:51)
[2024-05-07] MEDS: traZODone 100 MG Tablet PO (21:51)
[2024-05-07] MEDS: Atorvastatin Calcium 20 MG Tablet PO (21:54)
[2024-05-07] MEDS: Divalproex (ER) 500 MG Tablet PO (21:54)
[2024-05-07 22:14] VITALS: BP 109/50; PULSE 57; RESP 16; TEMP 36.5; O2SAT 98
[2024-05-08 04:17] VITALS: BP 122/60; PULSE 69; RESP 15; TEMP 36.4; O2SAT 94
[2024-05-08 06:00] VITALS: BMI 38.7
[2024-05-08] MEDS: Gabapentin 300 MG Capsule PO ×3 (06:16→20:52)
[2024-05-08] MEDS: oxyCODONE 5 MG Tablet PO ×2 (06:16→16:32)
[2024-05-08] MEDS: Nystatin Powder 15gm Bottle 1 APPLIC TOPICAL ×3 (06:16→20:44)
[2024-05-08] MEDS: Levothyroxine 100 MCG Tablet PO (06:16)
[2024-05-08 06:27] LABS: Hematocrit 35.9 % (37-47); Hemoglobin 11.3 g/dL (12.0-15.0); Mean Corp Hgb Conc 31.5 g/dL (32-36); Mean Corpuscular Hgb 31.2 pg (27.0-32.0); Mean Corpuscular Volume 99.2 fL (81-99); Mean Platelet Vol. 9.8 fl (6.2-12.0); Platelet Count 157 K/mm3 (150-450); RBC Distribution Width CV 13.8 % (11.6-14.6); RBC Distribution Width SD 50.2 fl (35.1-43.9); Red Blood Count 3.62 M/mm3 (4.2-5.4); White Blood Count 8.2 K/mm3 (4.4-11.0)
[2024-05-08 07:05] LABS: Bedside Glucose 119 mg/dL (74-106)
[2024-05-08 07:34] VITALS: O2SAT 97
[2024-05-08 08:16] VITALS: BP 94/49; PULSE 51; RESP 16; TEMP 36.4; O2SAT 98
[2024-05-08 08:17] LABS: Anion Gap 11 (5-15); BUN 46 mg/dL (4-19); BUN/Creat Ratio 27.4 RATIO (10-20); Carbon Dioxide 40.3 mmol/L (22.0-29.0); Chloride 88 mmol/L (96-108); Creatinine, Serum 1.68 mg/dL (0.70-1.20); EST Glomerular Filtration Rate 34 (>60); Estimated Creatinine Clearance 37.96 ml/min (50-250); Glucose 108 mg/dL (70-99); Potassium 3.6 mmol/L (3.3-5.1); Sodium Level 139 mmol/L (133-145)
[2024-05-08] MEDS: Atropine Sulfate 1% 2 ml Bottle 1 DRP PO ×2 (08:27→20:42)
[2024-05-08] MEDS: Benztropine Mesylate 0.5 MG TABLET PO ×2 (08:28→20:41)
[2024-05-08] MEDS: Tolterodine Tartrate 2 MG CAP.SA PO (08:28)
[2024-05-08] MEDS: APIXABAN 5 MG TABLET PO ×2 (08:28→20:41)
[2024-05-08] MEDS: Pantoprazole Sodium 40 MG Tablet PO (08:28)
[2024-05-08] MEDS: Empagliflozin 25 MG Tablet PO (08:28)
[2024-05-08] MEDS: Clotrimazole/Betamethasone 1 Tube 1 APPLIC TOPICAL ×2 (08:29→20:59)
[2024-05-08] MEDS: Menthol/Lanolin/Calamine/Znox 113 GM Tube 1 APPLIC TOPICAL ×3 (08:29→20:42)
[2024-05-08] MEDS: Senna/Docusate Sodium 1 Tablet 2 TABLET PO (08:39)
[2024-05-08] MEDS: Insulin Glargine-YFGN 100 UNIT/ML Pen 12 UNIT SC (11:19)
[2024-05-08 11:41] LABS: Bedside Glucose 124 mg/dL (74-106)
--- NOTE | 2024-05-08 12:00 | PN_ITS ---
Subjective Subjective Patient seen and examined. She had no active complaints. She denied any cough, chest pain, palpitations, dizziness, nausea, vomiting or any other symptoms. BP is running low at 94/49 today. She is asymptomatic. On 2L of oxygen. Objective Data Objective Data Vital Signs: Vital Signs Temp Pulse Resp BP Pulse Ox O2 Del Method O2 Flow Rate 97.6 F L 51 L 16 94/49 L 98 Nasal Cannula 2 05/08/24 08:16 05/08/24 08:16 05/08/24 08:16 05/08/24 08:16 05/08/24 08:16 05/08/24 08:16 05/08/24 08:16 Oxygen Flow Rate (L/min) 2 Oxygen Delivery Method Nasal Cannula Weight: 218 lb 7.649 oz Body Mass Index (BMI) 38.7 Intake & Output: Intake and Output for Last 24 Hours 05/06/24 05/07/24 05/08/24 23:59 23:59 23:59 Intake Total 662.67 / 1162.67 1239.9 / 1239.9 173.33 / 173.33 Output Total 1600 / 1600 1600 / 1600 650 / 650 Balance -937.33 / -437.33 -360.1 / -360.1 -476.67 / -476.67 Lab / Micro Data 05/08/24 05:35 05/08/24 05:35 Labs: Laboratory Results - last 24 hr 05/07/24 12:07: POC Glucose 127 H 05/07/24 17:56: POC Glucose 127 H 05/07/24 21:11: POC Glucose 146 H 05/08/24 05:35: WBC 8.2, RBC 3.62 L, Hgb 11.3 L, Hct 35.9 L, MCV 99.2 H, MCH 31.2, MCHC 31.5 L, RDW Std Deviation 50.2 H, RDW Coeff of Penny 13.8, Plt Count 157, MPV 9.8, Sodium 139, Potassium 3.6, Chloride Direct 88 L, Carbon Dioxide 40.3 H, Anion Gap 11, BUN 46 H, Creatinine 1.68 H, Estim Creat Clear Calc 37.96 L, Est GFR (MDRD) Non-Af 34 L, BUN/Creatinine Ratio 27.4 H, Glucose 108 H, Calcium 10.0 05/08/24 06:14: POC Glucose 119 H 05/08/24 11:17: POC Glucose 124 H Rhythm Strip Rhythm Strip: Sinus Rhythm Rate: 68 Ectopy: None Physical Exam Const alert, oriented x3, no apparent distress and well nourished Constitutional Narrative: class II obesity HEENT normocephalic, head/scalp atraumatic, moist oral mucous membranes and oropharynx normal Eyes PERRL and EOMs intact bilaterally Neck no lymphadenopathy and supple Lymph Lymphatic: no lymphadenopathy noted and no lymphedema noted Resp Resp Narrative: mildly diminished breath sounds bibasally, no wheezes or crackles. On 2L of oxygen by nasal canula Cardio regular rate, regular rhythm, S1 normal heart sound and S2 normal heart sound GI normal to inspection, nondistended, normoactive bowel sounds, soft to palpation, non-tender and non-distended Extremity normal capillary refill and no clubbing, cyanosis or edema Extremity Narrative: both LEs wrapped in [facility] bandage Skin General Skin Exam: no breakdown Neuro CN's II-XII intact bilaterally, no focal motor deficits and no sensory deficits noted Motor Exam: strength 5/5 throughout and general weakness Psych thought process normal and cooperative Appearance: appropriate Assessment & Plan Assessment/Plan (1) Hypoxia: (2) Elevated brain natriuretic peptide (BNP) level: PLAN: Plan #Hpoxia due to acute heart failure with preserved EF. * on 2L of oxygen by nasal canula * was hypotensive this morning with BP of 94/49. * lasix drip dc'd this morning * 2D echo showed EF of 65% with inability do assess diastolic dysfunction. * received a dose of diamox * fluid restriction to 1500cc daily. * resume oral lasix from this evening * #Elevated troponin * thought to be due to demand ischemia from heart failure. * 2D echo showed no regional wall motion abnormalities. * #Anemia and thrombocytopenia #Severe lumbar spinal stenosis with neurogenic claudication * s/p laminectomy. * pain meds prn. * #GERD: on PPI #CKD III: cr is 1.68 today which is lowr than her baseline actually. WIll monitor. #Hypothyroidism: on synthroid #Type 2 diabetes mellitus: on jardiance. On lantus 12 units daily. ISS. Accuchecks ACHS #Class II obesity: BMi is 38.7. Complicates acute care, expected recovery and prognosis. #Hyperlipidemia: on statin #Urinary incontinence: on oxybutinin #Schizoaffective disorder and tardive dyskinesia * on aripiprazole and valproic acid as well as valbenazine and trazodone. * DVT prophylaxis: on eliquis. Charges/Coding Visit Charges Inpatient E&M: 73288 Subs Hosp L2
[2024-05-08 14:00] VITALS: BP 96/44; PULSE 58; RESP 16; TEMP 36.6; O2SAT 99
[2024-05-08] MEDS: Buprenorphine 10 MCG PATCH.TDWK 1 PATCH TD (14:21)
[2024-05-08] MEDS: Acetaminophen 325 MG Tablet 650 MG PO (16:31)
[2024-05-08 16:46] LABS: Bedside Glucose 146 mg/dL (74-106)
[2024-05-08 20:00] VITALS: BP 103/46; PULSE 55; RESP 16; TEMP 37.1; O2SAT 96
[2024-05-08] MEDS: Divalproex (ER) 500 MG Tablet PO (20:40)
[2024-05-08] MEDS: ARIPiprazole 10 MG Tablet 20 MG PO (20:42)
[2024-05-08] MEDS: traZODone 100 MG Tablet PO (20:43)
[2024-05-08] MEDS: Atorvastatin Calcium 20 MG Tablet PO (20:43)
[2024-05-08] MEDS: Insulin Lispro 100 UNIT/ML INSULN.PEN SC (20:59)
[2024-05-08 21:40] LABS: Bedside Glucose 158 mg/dL (74-106)
[2024-05-08 21:46] VITALS: RESP 18
--- NOTE | 2024-05-08 23:21 | NURSING ---
This RN taking over care at this time.
[2024-05-09] VITALS (9 sets, daily range): BP systolic 100–131; BP diastolic 47–58; PULSE 55–69; RESP 16–18; TEMP 36.5–36.8; O2SAT 93–100; BMI 38.8
[2024-05-09] MEDS: 0.9% Saline Lock 10 ML Syringe IV ×2 (04:47→22:20)
[2024-05-09] MEDS: oxyCODONE 5 MG Tablet PO (04:47)
[2024-05-09] MEDS: Levothyroxine 100 MCG Tablet PO (06:30)
[2024-05-09] MEDS: Gabapentin 300 MG Capsule PO ×3 (06:31→22:18)
[2024-05-09] MEDS: Mag Hydrox/Al Hydrox/Simeth 30 ML UDC PO (06:48)
[2024-05-09] MEDS: Methocarbamol 750 MG Tablet PO (06:52)
[2024-05-09 07:00] LABS: Bedside Glucose 134 mg/dL (74-106)
[2024-05-09 07:24] LABS: Basophil# 0.04 X10^3/uL; Basophil% 0.5 % (0-1); Eosinophil# 0.48 X10^3/uL; Eosinophils% 6.3 % (0-5); Hematocrit 35.1 % (37-47); Hemoglobin 11.3 g/dL (12.0-15.0); Lymphocyte % 16.9 % (19-41); Mean Corp Hgb Conc 32.2 g/dL (32-36); Mean Corpuscular Hgb 31.1 pg (27.0-32.0); Mean Corpuscular Volume 96.7 fL (81-99); Mean Platelet Vol. 9.8 fl (6.2-12.0); Monocyte# 0.83 X10^3/uL; Monocyte% 10.8 % (0-10); NRBC Flagged by Analyzer 0 % (0-5); Neutrophil # 4.99 X10^3/uL (2.7-7.7); Neutrophil % 65.1 % (47-70); Platelet Count 156 K/mm3 (150-450); RBC Distribution Width CV 13.5 % (11.6-14.6); Red Blood Count 3.63 M/mm3 (4.2-5.4); White Blood Count 7.7 K/mm3 (4.4-11.0)
[2024-05-09 08:54] LABS: Anion Gap 13 (5-15); BUN 46 mg/dL (4-19); BUN/Creat Ratio 28.6 RATIO (10-20); Calcium,Total 9.7 mg/dL (7.6-11.0); Carbon Dioxide 35.6 mmol/L (21.0-32.0); Chloride 91 mmol/L (98-108); Creatinine, Serum 1.61 mg/dL (0.70-1.20); EST Glomerular Filtration Rate 36 (>60); Estimated Creatinine Clearance 39.68 ml/min (50-250); Glucose 138 mg/dL (70-99); Potassium 3.6 mmol/L (3.3-5.1); Sodium Level 140 mmol/L (133-145)
[2024-05-09] MEDS: Insulin Glargine-YFGN 100 UNIT/ML Pen 12 UNIT SC (09:06)
[2024-05-09] MEDS: Empagliflozin 25 MG Tablet PO (09:06)
[2024-05-09] MEDS: Tolterodine Tartrate 2 MG CAP.SA PO (09:06)
[2024-05-09] MEDS: Menthol/Lanolin/Calamine/Znox 113 GM Tube 1 APPLIC TOPICAL ×2 (09:06→22:19)
[2024-05-09] MEDS: Atropine Sulfate 1% 2 ml Bottle 1 DRP PO ×2 (09:06→22:19)
[2024-05-09] MEDS: Pantoprazole Sodium 40 MG Tablet PO (09:06)
[2024-05-09] MEDS: APIXABAN 5 MG TABLET PO ×2 (09:06→22:18)
[2024-05-09 12:25] LABS: Bedside Glucose 121 mg/dL (74-106)
--- NOTE | 2024-05-09 13:26 | PN_ITS ---
Subjective Subjective Patient seen and examined. She had no complaints. She was asking to be discharged. Review of systems is otherwise negative. BP was still running low in the low 100s systolic. She is on 1L of oxygen. Objective Data Objective Data Vital Signs: Vital Signs Temp Pulse Resp BP Pulse Ox O2 Del Method O2 Flow Rate 97.7 F L 55 L 18 100/58 L 100 Nasal Cannula 1 05/09/24 09:00 05/09/24 09:00 05/09/24 09:00 05/09/24 09:30 05/09/24 11:37 05/09/24 11:37 05/09/24 11:37 Oxygen Flow Rate (L/min) 1 Oxygen Delivery Method Nasal Cannula Weight: 219 lb 2.232 oz Body Mass Index (BMI) 38.8 Intake & Output: Intake and Output for Last 24 Hours 05/07/24 05/08/24 05/09/24 23:59 23:59 23:59 Intake Total 1239.9 / 1239.9 173.33 / 173.33 680 / 680 Output Total 1600 / 1600 650 / 650 Balance -360.1 / -360.1 -476.67 / -476.67 680 / 680 Lab / Micro Data 05/09/24 06:38 05/09/24 06:38 Labs: Laboratory Results - last 24 hr 05/08/24 16:26: POC Glucose 146 H 05/08/24 20:58: POC Glucose 158 H 05/09/24 06:38: WBC 7.7, RBC 3.63 L, Hgb 11.3 L, Hct 35.1 L, MCV 96.7, MCH 31.1, MCHC 32.2, RDW Std Deviation 48.0 H, RDW Coeff of Penny 13.5, Plt Count 156, MPV 9.8, Immature Gran % (Auto) 0.400, Neut % (Auto) 65.1, Lymph % (Auto) 16.9 L, M sean % (Auto) 10.8 H, Eos % (Auto) 6.3 H, Baso % (Auto) 0.5, Absolute Neuts (auto) 5.0, Absolute Lymphs (auto) 1.30, Nucleated RBC % 0, Sodium 140, Potassium 3.6, Chloride 91 L, Carbon Dioxide 35.6 H, Anion Gap 13, BUN 46 H, C reatinine 1.61 H, Estim Creat Clear Calc 39.68 L, Est GFR (MDRD) Non-Af 36 L, B UN/Creatinine Ratio 28.6 H, Glucose 138 H, Calcium 9.7, POC Glucose 134 H 05/09/24 12:07: POC Glucose 121 H Rhythm Strip Rhythm Strip: Sinus Rhythm Rate: 68 Ectopy: None Physical Exam Const alert, oriented x3, no apparent distress and well nourished Constitutional Narrative: class II obesity General Appearance: cooperative HEENT normocephalic, head/scalp atraumatic, hearing grossly normal bilaterally, moist oral mucous membranes and oropharynx normal Eyes PERRL, EOMs intact bilaterally and conjunctivae normal Neck no lymphadenopathy, supple and no JVD Lymph Lymphatic: no lymphadenopathy noted and no lymphedema noted Resp normal respiratory effort, no retractions, no use of accessory muscles and clear to auscultation bilaterally Resp Narrative: mildly diminished breath sounds bibasally, no wheezes or crackles. On 1 L of oxygen by nasal canula Auscultation: Negative for rales, rhonchi or wheezes Cardio regular rate, regular rhythm, S1 normal heart sound, S2 normal heart sound and no murmurs GI normal to inspection, nondistended, normoactive bowel sounds, soft to palpation, non-tender and non-distended GI Narrative: obese abdomen Extremity normal capillary refill and no clubbing, cyanosis or edema Extremity Narrative: both LEs wrapped in KAISER bandage Skin Skin Narrative: Patient has mild erythema of the legs but no evidence of wounds. General Skin Exam: no breakdown Neuro oriented x3, CN's II-XII intact bilaterally, moves all extremities, no focal motor deficits and no sensory deficits noted Sensorium / Orientation: awake, alert, oriented to person, oriented to place and oriented to time Speech: speech normal Motor Exam: strength 5/5 throughout and general weakness Psych thought process normal and cooperative Psych Narrative: Patient very pleasant, makes good eye contact, interacts appropriately Appearance: appropriate Assessment & Plan Assessment/Plan (1) Hypoxia: (2) Elevated brain natriuretic peptide (BNP) level: PLAN: Plan #Hpoxia due to acute heart failure with preserved EF. * down to 1L of oxygen by nasal canula * was hypotensive this morning with BP of 94/49. * lasix drip dc'd this morning * 2D echo showed EF of 65% with inability do assess diastolic dysfunction. * received a dose of diamox * fluid restriction to 1500cc daily. * BP has improved a bit today, but still running low at 100/58 today. * #Elevated troponin * thought to be due to demand ischemia from heart failure. * 2D echo showed no regional wall motion abnormalities. * #Anemia and thrombocytopenia #Severe lumbar spinal stenosis with neurogenic claudication * s/p laminectomy. * pain meds prn. * #GERD: on PPI #CKD III: Cr is 1.61 today, which is lower than her baseline actually. Will monitor. #Hypothyroidism: on synthroid #Type 2 diabetes mellitus: on jardiance. On lantus 12 units daily. ISS. Accuchecks ACHS #Class II obesity: BMi is 38.8. Complicates acute care, expected recovery and prognosis. #Hyperlipidemia: on statin #Urinary incontinence: on oxybutinin #Schizoaffective disorder and tardive dyskinesia * on aripiprazole and valproic acid as well as valbenazine and trazodone. * DVT prophylaxis: on eliquis. Charges/Coding Visit Charges Inpatient E&M: 58157 Subs Hosp L2
[2024-05-09] MEDS: Benztropine Mesylate 0.5 MG TABLET PO ×2 (14:20→22:16)
[2024-05-09] MEDS: Nystatin Powder 15gm Bottle 1 APPLIC TOPICAL ×2 (14:20→22:20)
[2024-05-09] MEDS: Furosemide 40 MG Tablet PO (16:13)
[2024-05-09] MEDS: Acetaminophen 325 MG Tablet 650 MG PO (16:13)
--- NOTE | 2024-05-09 16:55 | NURSING ---
Patients sister Elvira called in for an update. Elvira said the patient is calling her saying shes had nothing to drink all day, her blood pressure is low, and complaints of being joel with her. Educated Elvira on fluid restriction and assured her she had eaten/drank today but fluids are restricted. Went over BP results and plan of care. Elvira stating that people arent getting the patient up enough and that is why her BP is low. Attempted to educate that BP was low from the lasix drip and that patient had been up several times. Educated Elvira people have had to be firm and re-explain fluid restriction and plan of care with patient. Elvira expressed understanding, stating she was going to call CM to discuss her frustrations with them. Isha made aware and going to call.
[2024-05-09 17:03] LABS: Bedside Glucose 102 mg/dL (74-106)
[2024-05-09] MEDS: ARIPiprazole 10 MG Tablet 20 MG PO (22:17)
[2024-05-09] MEDS: Atorvastatin Calcium 20 MG Tablet PO (22:17)
[2024-05-09] MEDS: traZODone 100 MG Tablet PO (22:17)
[2024-05-09] MEDS: Divalproex (ER) 500 MG Tablet PO (22:18)
[2024-05-09] MEDS: Clotrimazole/Betamethasone 1 Tube 1 APPLIC TOPICAL (22:19)
[2024-05-09 23:31] LABS: Bedside Glucose 118 mg/dL (74-106)
[2024-05-10 04:10] VITALS: BMI 38.5
[2024-05-10 04:30] VITALS: BP 126/72; PULSE 53; RESP 18; TEMP 36.2; O2SAT 95
[2024-05-10 06:25] LABS: Absolute Neutrophil Count 6.1 X10^3/uL (2.0-7.7); Basophil# 0.05 X10^3/uL; Basophil% 0.6 % (0-1); Eosinophil# 0.46 X10^3/uL; Eosinophils% 5.1 % (0-5); Hematocrit 34.1 % (37-47); Lymphocyte % 15.6 % (19-41); Mean Corp Hgb Conc 32.3 g/dL (32-36); Mean Corpuscular Hgb 30.8 pg (27.0-32.0); Mean Corpuscular Volume 95.5 fL (81-99); Mean Platelet Vol. 10.3 fl (6.2-12.0); Monocyte# 0.95 X10^3/uL; Monocyte% 10.6 % (0-10); NRBC Flagged by Analyzer 0 % (0-5); Neutrophil # 6.11 X10^3/uL (2.7-7.7); Neutrophil % 67.9 % (47-70); Platelet Count 164 K/mm3 (150-450); RBC Distribution Width CV 13.3 % (11.6-14.6); RBC Distribution Width SD 47.1 fl (35.1-43.9); Red Blood Count 3.57 M/mm3 (4.2-5.4)
[2024-05-10] MEDS: Gabapentin 300 MG Capsule PO ×2 (06:35→14:11)
[2024-05-10] MEDS: Nystatin Powder 15gm Bottle 1 APPLIC TOPICAL ×2 (06:35→11:56)
[2024-05-10] MEDS: Levothyroxine 100 MCG Tablet PO (06:35)
[2024-05-10 06:44] LABS: Anion Gap 12 (5-15); BUN 45 mg/dL (4-19); Calcium,Total 9.5 mg/dL (7.6-11.0); Carbon Dioxide 33.6 mmol/L (21.0-32.0); Chloride 91 mmol/L (98-108); Creatinine, Serum 1.56 mg/dL (0.70-1.20); EST Glomerular Filtration Rate 37 (>60); Estimated Creatinine Clearance 40.79 ml/min (50-250); Glucose 105 mg/dL (70-99); Potassium 3.6 mmol/L (3.3-5.1); Sodium Level 137 mmol/L (133-145)
[2024-05-10 07:04] LABS: Bedside Glucose 102 mg/dL (74-106)
[2024-05-10 08:18] VITALS: O2SAT 96
[2024-05-10 09:23] VITALS: BP 111/48; PULSE 58; RESP 16; TEMP 36.6; O2SAT 93
[2024-05-10] MEDS: Tolterodine Tartrate 2 MG CAP.SA PO (09:38)
[2024-05-10] MEDS: Acetaminophen 325 MG Tablet 650 MG PO (09:38)
[2024-05-10] MEDS: Pantoprazole Sodium 40 MG Tablet PO (09:38)
[2024-05-10] MEDS: Atropine Sulfate 1% 2 ml Bottle 1 DRP PO (09:38)
[2024-05-10] MEDS: Benztropine Mesylate 0.5 MG TABLET PO (09:38)
[2024-05-10] MEDS: APIXABAN 5 MG TABLET PO (09:38)
[2024-05-10] MEDS: Clotrimazole/Betamethasone 1 Tube 1 APPLIC TOPICAL (09:39)
[2024-05-10] MEDS: Empagliflozin 25 MG Tablet PO (09:39)
[2024-05-10 10:17] VITALS: O2SAT 91; O2SAT 93
[2024-05-10] MEDS: Insulin Lispro 100 UNIT/ML INSULN.PEN SC (11:55)
[2024-05-10] MEDS: Insulin Glargine-YFGN 100 UNIT/ML Pen 12 UNIT SC (11:55)
[2024-05-10 12:15] LABS: Bedside Glucose 158 mg/dL (74-106)
--- NOTE | 2024-05-10 14:03 | DS.PCM_ITS ---
Providers Date of Admission: 05/04/24 Date of Discharge: 05/10/24 Primary Care Physician: FATMATA Dalal Consultations 05/04/24 01:32 Consult: Cardiology Routine Consulting Provider: Mehdi Barr Reason for Consult: AE CHF. EMERGENT Consult: No MD Notified: Yes Date Notified: 05/04/24 Time Notified: 00:29 Method of Notification: Answering Service Method of Consult:: In-Person Reason For Visit: AE CHF Diagnosis Discharge Diagnosis (1) Hypoxia: Status: Acute Code(s): R09.02 - Hypoxemia (2) Elevated brain natriuretic peptide (BNP) level: Status: Acute Code(s): R79.89 - Other specified abnormal findings of blood chemistry Plan #Hpoxia due to acute heart failure with preserved EF. * down to 1L of oxygen by nasal canula * was hypotensive this morning with BP of 94/49. * lasix drip dc'd this morning * 2D echo showed EF of 65% with inability do assess diastolic dysfunction. * received a dose of diamox * fluid restriction to 1500cc daily. * BP has improved a bit today, but still running low at 100/58 today. * #Elevated troponin * thought to be due to demand ischemia from heart failure. * 2D echo showed no regional wall motion abnormalities. * #Anemia and thrombocytopenia #Severe lumbar spinal stenosis with neurogenic claudication * s/p laminectomy. * pain meds prn. * #GERD: on PPI #CKD III: Cr is 1.61 today, which is lower than her baseline actually. Will monitor. #Hypothyroidism: on synthroid #Type 2 diabetes mellitus: on jardiance. On lantus 12 units daily. ISS. Accuchecks ACHS #Class II obesity: BMi is 38.8. Complicates acute care, expected recovery and prognosis. #Hyperlipidemia: on statin #Urinary incontinence: on oxybutinin #Schizoaffective disorder and tardive dyskinesia * on aripiprazole and valproic acid as well as valbenazine and trazodone. * DVT prophylaxis: on eliquis. Medications at Discharge Home Medications apixaban 5 mg tablet (Eliquis) 5 mg PO BID blood thinner 12/24/22 atorvastatin 20 mg tablet 20 mg PO DAILY cholesterol 12/24/22 gabapentin 300 mg capsule 300 mg PO TID nerve pain 12/25/22 trazodone 100 mg tablet 100 mg PO QHS sleep 01/01/23 aripiprazole 20 mg tablet 20 mg PO QHS mental health 03/09/23 fluticasone propionate 50 mcg/actuation nasal spray,suspension 1 spray intranasal DAILY PRN allergy symptoms 04/27/23 divalproex 500 mg tablet,extended release 24 hr 500 mg PO QHS seizure 07/25/23 levothyroxine 100 mcg tablet 100 mcg PO DAILY thyroid 07/25/23 oxybutynin chloride 5 mg tablet,extended release 24 hr 5 mg PO DAILY bladder 07/25/23 insulin glargine 100 unit/mL (3 mL) subcutaneous pen (Lantus Solostar U-100 Insulin) 20 unit subcut DAILY diabetes 10/13/23 clotrimazole-betamethasone 1 %-0.05 % topical cream 1 applic topical BID skin irritation 12/24/23 diclofenac sodium 1 % topical gel 2 g topical ONCE 12/24/23 empagliflozin 25 mg tablet (Jardiance) 25 mg PO QAM diabetes 12/24/23 epinephrine 0.3 mg/0.3 mL injection, auto-injector (EpiPen 2-Wayne) 0.3 mg IM ONCE allergic reaction 12/24/23 meloxicam 7.5 mg tablet 7.5 mg PO QDAY PRN pain 12/24/23 pantoprazole 40 mg tablet,delayed release 40 mg PO QDAY acid reflux 12/24/23 nystatin 100,000 unit/gram topical powder 1 applic topical BID skin irritation 01/06/24 valbenazine 80 mg capsule (Ingrezza) 80 mg PO HS involuntary movements 01/06/24 buprenorphine 10 mcg/hour weekly transdermal patch 1 patch topical QWEEK pain 03/07/24 docusate sodium 100 mg capsule (Colace) 100 mg PO BID PRN constipation 03/07/24 nicotine 21mg/24hr-14mg/24hr-7mg/24hr daily transderm patches,sequentl 1 patch topical DAILY 03/07/24 tobramycin 0.3 %-dexamethasone 0.05 % eye drops,suspension (Tobradex ST) 1 drp ophthalmic (eye) .Q4-6H 03/07/24 linaclotide 145 mcg capsule (Linzess) 145 mcg PO QAM bowels #60 caps 03/10/24 sodium sul 1.479 gram-potas ch 0.188 gram-magnes sul 0.225 gram tablet (Sutab) See Rx Instructions PO PER PKG DIR #24 tabs 03/10/24 methocarbamol 500 mg tablet 500 mg PO 4X/DAY PRN Muscle pain/spasm #40 tabs 03/16/24 sennosides 8.6 mg-docusate sodium 50 mg tablet (Stimulant Laxative Plus) 2 tab PO BID PRN constipation #30 tabs 03/21/24 hydrocodone-acetaminophen 5-325mg 5mg-325mg 1 tab PO Q6H PRN pain 5 days #20 tabs 03/28/24 fluticasone fur. 100 mcg-umeclid 62.5 mcg-vilant 25 mcg inhalat.powder (Trelegy Ellipta) 1 inh inhalation Q24H breathing #60 ea 03/31/24 prednisone 10 mg tablet 10 mg PO DIRECTED #13 tabs 03/31/24 metronidazole 500 mg tablet 500 mg PO Q8H infection 05/01/24 methocarbamol 500 mg tablet 750 mg (1.5 x 500 mg) PO TID PRN pain/spasms #30 tabs 05/02/24 atropine 1 % eye drops 1 drp PO BID eye health 05/03/24 peg 400-propylene glycol 0.4 %-0.3 % eye drops (Lubricant Eye (PG-PEG 400)) 1 drp EACH EYE DAILY PRN dry eye(s) 05/03/24 sodium sul 1.479 gram-potas ch 0.188 gram-magnes sul 0.225 gram tablet (Sutab) 1 tab PO PER PKG DIR #24 tabs 05/03/24 furosemide 40 mg tablet (Lasix) 40 mg PO DAILY #30 tabs 05/10/24 midodrine 2.5 mg tablet 2.5 mg PO BID #60 tabs 05/10/24 Hospital Course Operations None Procedures 2-D Echocardiogram Summary of Care Provided Minutes Spent on Discharge: 47 Hospital Course: Patient is a 63-year-old female with an extensive past medical history as outlined who was admitted with a complaint of bilateral lower extremity swelling and shortness of breath. She was on furosemide 80mg daily at home and said she had been taking it, but noted that she had had a 20 pound weight gain for about 2 weeks. She also had lower extremity edema with shortness of breath on exertion with progressive shortness of breath that would progress. Review of symptoms otherwise negative. On admission BNP was elevated at 992 and chest x- ray showed no acute cardiopulmonary pathology. She was admitted to be managed for acute exacerbation of heart failure preserved ejection fraction. She does have known EF of 60%. She was diuresed with IV Lasix. Cardiology was consulted. She had 2D echogram done during this admission which showed EF of 65% and unable to assess diastolic dysfunction no regional wall motion abnormalities noted. Hospital course was complicated by hypotension. Patient was placed on Lasix drip and this was ultimately discontinued on account of the hypotension. Her blood pressure gradually improved but she still remained on the low side of normal with her systolic being in the 100-110 systolic. Patient was therefore placed on p.o. Lasix 40 mg daily. She was also placed on p.o. midodrine 10 mg twice daily to help with her hypotension. She was discharged on 05/10/2024. She is to follow-up with her primary care doctor and is follow-up with cardiology within 1 to 2 weeks. Patient seen and examined prior to discharge. She had no active complaints. She had an uneventful night. Review of systems otherwise negative. Labs and vitals reviewed. Medication reviewed and reconciled. Physical Exam Const alert, oriented x3 and no apparent distress Constitutional Narrative: class II obesity General Appearance: cooperative and comfortable Orientation / Consciousness: awake HEENT normocephalic, head/scalp atraumatic, hearing grossly normal bilaterally, moist oral mucous membranes and oropharynx normal Mouth: oral and palatal mucosa normal Eyes PERRL, EOMs intact bilaterally and conjunctivae normal Neck no lymphadenopathy, supple and no JVD Lymph Lymphatic: no lymphadenopathy noted and no lymphedema noted Resp Resp Narrative: mildly diminished breath sounds bibasally, no wheezes or crackles. On 1 L of oxygen by nasal canula Cardio regular rate, regular rhythm, S1 normal heart sound, S2 normal heart sound and no murmurs GI normal to inspection, nondistended, normoactive bowel sounds, soft to palpation, non-tender and non-distended Extremity normal capillary refill and no clubbing, cyanosis or edema Extremity Narrative: both LEs wrapped in [facility] bandage Skin General Skin Exam: no breakdown Neuro oriented x3, CN's II-XII intact bilaterally, moves all extremities, no focal motor deficits and no sensory deficits noted Sensorium / Orientation: awake, alert, oriented to person, oriented to place and oriented to time Speech: speech normal Motor Exam: strength 5/5 throughout and general weakness Psych thought process normal, cooperative and affect normal Appearance: appropriate Weight / BMI Weight Weight: 217 lb 9.54 oz Body Mass Index (BMI) 38.5 ABG / Lab / Microbiology Data 05/10/24 05:22 05/10/24 05:22 Laboratory: Laboratory Results - last 24 hr 05/09/24 16:11: POC Glucose 102 05/09/24 22:15: POC Glucose 118 H 05/10/24 05:22: WBC 9.0, RBC 3.57 L, Hgb 11.0 L, Hct 34.1 L, MCV 95.5, MCH 30.8, MCHC 32.3, RDW Std Deviation 47.1 H, RDW Coeff of Penny 13.3, Plt Count 164, MPV 10.3, Immature Gran % (Auto) 0.200, Neut % (Auto) 67.9, Lymph % (Auto) 15.6 L, M sean % (Auto) 10.6 H, Eos % (Auto) 5.1 H, Baso % (Auto) 0.6, Absolute Neuts (auto) 6.1, Absolute Lymphs (auto) 1.40, Nucleated RBC % 0, Sodium 137, Potassium 3.6, Chloride 91 L, Carbon Dioxide 33.6 H, Anion Gap 12, BUN 45 H, C reatinine 1.56 H, Estim Creat Clear Calc 40.79 L, Est GFR (MDRD) Non-Af 37 L, B UN/Creatinine Ratio 29.0 H, Glucose 105 H, Calcium 9.5 05/10/24 06:33: POC Glucose 102 05/10/24 11:54: POC Glucose 158 H D/C Instructions Discharge Diet: Low fat / Low cholesterol Discharge Activity: Return to Normal Activity Weight Bearing Status: Weight bearing as tolerated Call your doctor if you observe: Fever of 101 or Higher, Shortness of breath, Dizziness, Swelling in the ankles and Chest pain DC O2, CPAP, BIPAP Needs Home O2 Discharge instructions: No DC home with Oxygen: No Meaningful Use Info Meaningful Use Meaningful Use Diagnoses (Choose all that apply): CHF CHF KAISER/ARB ordered at discharge?: No Reason KAISER/ARB not ordered?: Hypotension Documented LVEF (%): 60 Ischemic Stroke Statin Dosing Therapy Reference: STATIN DOSE THERAPY REFERENCE: * Patients > 75 years receive moderate or high dose statin therapy. * Patients 75 years or YOUNGER should receive HIGH intensity statin dose unless contraindicated. You will be required to document reason for non-treatment if statin daily dose does not meet guidelines. HIGH DOSE STATIN THERAPY DAILY Atorvastatin > than or = to 40 mg Rosuvastatin > than or = to 20 mg Amlodipine + Atorvastatin > than or = to 2.5/40 mg Ezetimibe + Simvastatin 10/80 mg Simvastatin 80mg Discharge Plan Admission Admit Date/Time: 05/04/24 00:18 Primary Reason for Your Visit: acute heart failure Attending Provider: Laura De Leon Primary Care Provider: Eric Marion [facility] [place] Consulting Providers: Elliot Zuniga; Billie Romero; Vinita Rodriguez; Brittney Garcia; Vinh Vasquez; Jagjit Resendiz; Tierra Merchant; Nicho Mcgraw; Harris Richards; Ricky Tavarez; Soto Blackman; Dominic Lopez NP; Isha Velazquez PA; Clayton Krueger; Maria Isabel Garsia Instructions Patient Instructions: Coping with Heart Failure Discharge Orders/Prescriptions Prescriptions: New furosemide [Lasix] 40 mg tablet 40 mg PO DAILY Qty: 30 2RF midodrine 2.5 mg tablet 2.5 mg PO BID Qty: 60 1RF Rx Instructions: do not give last dose of day after 6PM or within 4 hrs of bedtime Continued atorvastatin 20 mg tablet 20 mg PO DAILY Patient Comments: 5 PM Eliquis 5 mg tablet 5 mg PO BID Patient Comments: STOP 2-3 DAYS PRIOR TO SURGERY gabapentin 300 mg capsule 300 mg PO TID fluticasone propionate 50 mcg/actuation spray,suspension 1 spray intranasal DAILY PRN (Reason: allergy symptoms) Patient Comments: instill 2 sprays in each nostril daily prednisone 10 mg tablet 10 mg PO DIRECTED Qty: 13 0RF Rx Instructions: Take 3 tablets daily for 3 days, then 2 tablets daily for 2 days. Trelegy Ellipta 100-62.5-25 mcg blister with device 1 inh inhalation Q24H Qty: 60 5RF nystatin 100,000 unit/gram powder 1 applic topical BID clotrimazole-betamethasone 1-0.05 % cream 1 applic topical BID epinephrine [EpiPen 2-Wayne] 0.3 mg/0.3 mL auto-injector 0.3 mg IM ONCE Rx Instructions: as a single dose; may repeat once meloxicam 7.5 mg tablet 7.5 mg PO QDAY PRN (Reason: pain) Patient Comments: STOP 5-7 DAYS PRIOR TO OR Jardiance 25 mg tablet 25 mg PO QAM Patient Comments: PCP WANTS PT TO STOP 3-4 DAYS PRIOR TO SURGERY diclofenac sodium 1 % gel 2 g topical ONCE Rx Instructions: apply to single elbow, wrist or hand; for hand includes palm/fingers/back of hand pantoprazole 40 mg tablet,delayed release (DR/EC) 40 mg PO QDAY Ingrezza 80 mg capsule 80 mg PO HS methocarbamol 500 mg tablet 750 mg PO TID PRN (Reason: pain/spasms) Qty: 30 0RF buprenorphine 10 mcg/hour patch weekly 1 patch topical QWEEK Linzess 145 mcg capsule 145 mcg PO QAM Qty: 60 2RF Sutab 1.479-0.188- 0.225 gram tablet See Rx Instructions PO PER PKG DIR Qty: 24 0RF Rx Instructions: PO PER PKG DIR metronidazole 500 mg tablet 500 mg PO Q8H Rx Instructions: for 7 days trazodone 100 mg tablet 100 mg PO QHS Patient Comments: TAKE 1 TABLET BY MOUTH EVERY DAY AT NIGHT aripiprazole 20 mg tablet 20 mg PO QHS Patient Comments: TAKE ONE TABLET BY MOUTH DAILY AT 9AM divalproex 500 mg tablet extended release 24 hr 500 mg PO QHS levothyroxine 100 mcg tablet 100 mcg PO DAILY oxybutynin chloride 5 mg tablet extended release 24hr 5 mg PO DAILY insulin glargine [Lantus Solostar U-100 Insulin] 100 unit/mL (3 mL) insulin pen 20 unit subcut DAILY nicotine 21-14-7 mg/24 hr patch, TD daily, sequential 1 patch topical DAILY Tobradex ST 0.3-0.05 % drops,suspension 1 drp ophthalmic (eye) .Q4-6H docusate sodium [Colace] 100 mg capsule 100 mg PO BID PRN (Reason: constipation) sennosides-docusate sodium [Stimulant Laxative Plus] 8.6-50 mg Tablet 2 tab PO BID PRN (Reason: constipation) Qty: 30 0RF methocarbamol 500 mg tablet 500 mg PO 4X/DAY PRN (Reason: Muscle pain/spasm) Qty: 40 0RF atropine 1 % drops 1 drp PO BID Rx Instructions: administer to back of throat/tongue and swallow Lubricant Eye (PG-PEG 400) 0.4-0.3 % drops 1 drp EACH EYE DAILY PRN (Reason: dry eye(s)) hydrocodone-acetaminophen 5-325 mg tablet 1 tab PO Q6H PRN (Reason: pain) 5 Days Qty: 20 0RF Sutab 1.479-0.188- 0.225 gram tablet 1 tab PO PER PKG DIR Qty: 24 0RF Discontinued ciprofloxacin HCl 500 mg tablet 500 mg PO QDAY Rx Instructions: for 7 days furosemide [Lasix] 80 mg tablet 80 mg PO DAILY Referrals / Follow Up: Nicho Mcgraw MD [Med Staff - Active Staff] - 05/29/24 10:00 am (Appointment is with AIMEE Lopez) Eric Marion [facility], [facility] [Primary Care Provider] - Within 1 Week Disposition Disposition (needs filled in before D/C Order can be placed): Home Health Service Charges/Coding Visit Charges Inpatient E&M: 48067 Disch Hosp >30min
[2024-05-10 14:15] VITALS: BP 113/52; PULSE 54; RESP 16; TEMP 36.4; O2SAT 95
--- NOTE | 2024-05-10 15:00 | CASEMGMT ---
Discharge Planning Discharge instructions sent via [facility] and phone notification made to Tommy. Caro Shay DC Planning Asst.
--- NOTE | 2024-05-10 15:01 | CASEMGMT ---
Patient has order for discharge. Discharge strategic planning analyst to update [facility] of discharge. Patient is maintaining on home oxygen. Patient denies additional needs or help at discharge. Patient states she has oxygen to go home with. Patient states she also has [facility]. Patient had no further questions or concerns.
== END 2024-05-10 15:25 | disposition home health service (06) | DRG 291 ==
LOC: ED 23:08 → MS2 05-04 01:32 → PCU 05-05 18:20
PROVIDERS: Internal Medicine; Admitting Provider Internal Medicine; Emergency Provider Emergency Medicine; PCP Nurse Practitioner Family; Visit Provider Student in an Organized Health Care Education/Training Program
DX: I13.0 Hypertensive heart and chronic kidney disease with heart failure and stage 1 through stage 4 chronic kidney disease, or unspecified chronic kidney disease (principal); I50.33 Acute on chronic diastolic (congestive) heart failure; I24.89 Other forms of acute ischemic heart disease; N18.4 Chronic kidney disease, stage 4 (severe); Z68.41 Body mass index [BMI] 40.0-44.9, adult; I27.20 Pulmonary hypertension, unspecified; F25.9 Schizoaffective disorder, unspecified; D50.0 Iron deficiency anemia secondary to blood loss (chronic); E11.22 Type 2 diabetes mellitus with diabetic chronic kidney disease; G40.909 Epilepsy, unspecified, not intractable, without status epilepticus; I48.0 Paroxysmal atrial fibrillation; J43.9 Emphysema, unspecified; E03.9 Hypothyroidism, unspecified; E66.01 Morbid (severe) obesity due to excess calories; H35.30 Unspecified macular degeneration; K58.9 Irritable bowel syndrome, unspecified; M10.9 Gout, unspecified; Z79.4 Long term (current) use of insulin; E78.00 Pure hypercholesterolemia, unspecified; K21.9 Gastro-esophageal reflux disease without esophagitis; M19.90 Unspecified osteoarthritis, unspecified site; E11.40 Type 2 diabetes mellitus with diabetic neuropathy, unspecified; I25.10 Atherosclerotic heart disease of native coronary artery without angina pectoris; E11.51 Type 2 diabetes mellitus with diabetic peripheral angiopathy without gangrene; M48.062 Spinal stenosis, lumbar region with neurogenic claudication; I87.2 Venous insufficiency (chronic) (peripheral); E11.59 Type 2 diabetes mellitus with other circulatory complications; Z79.01 Long term (current) use of anticoagulants; Z87.891 Personal history of nicotine dependence; Z90.710 Acquired absence of both cervix and uterus; Z79.890 Hormone replacement therapy; R79.89 Other specified abnormal findings of blood chemistry; R09.02 Hypoxemia; Z88.6 Allergy status to analgesic agent; Z88.1 Allergy status to other antibiotic agents; Z88.8 Allergy status to other drugs, medicaments and biological substances; Z79.02 Long term (current) use of antithrombotics/antiplatelets; Z79.84 Long term (current) use of oral hypoglycemic drugs; Z79.52 Long term (current) use of systemic steroids; G89.29 Other chronic pain; Z99.89 Dependence on other enabling machines and devices; Z22.358 Carrier of other Enterobacterales; Z90.49 Acquired absence of other specified parts of digestive tract; Z98.890 Other specified postprocedural states
CPT/HCPCS: 36415; 71045; 71250; 80048; 80053; 80164; 82728; 82962; 83036; 83540; 83550; 83735; 83880; 84100; 84443; 84484; 85025; 85027; 93005; 93306; 94640; 94668; 97116; 97162; 97530; 99285; 99406; P9047; P9612; A4216; J1940; J2405

== ENCOUNTER → 2024-05-17 | Outpatient (CLI) | payer MEDICARE, MEDICAID, SELFPAY ==
[2024-05-17 12:39] LABS: Absolute Neutrophil Count 6.2 X10^3/uL (2.0-7.7); Basophil# 0.08 X10^3/uL; Basophil% 0.9 % (0-1); Eosinophil# 0.37 X10^3/uL; Hematocrit 33.8 % (37-47); Hemoglobin 10.8 g/dL (12.0-15.0); Lymphocyte % 20.4 % (19-41); Mean Corpuscular Hgb 30.9 pg (27.0-32.0); Mean Corpuscular Volume 96.6 fL (81-99); Mean Platelet Vol. 9.9 fl (6.2-12.0); Monocyte# 0.69 X10^3/uL; Monocyte% 7.4 % (0-10); NRBC Flagged by Analyzer 0 % (0-5); Neutrophil # 6.23 X10^3/uL (2.7-7.7); Platelet Count 159 K/mm3 (150-450); RBC Distribution Width CV 13.2 % (11.6-14.6); RBC Distribution Width SD 46.6 fl (35.1-43.9); White Blood Count 9.3 K/mm3 (4.4-11.0)
[2024-05-17 12:52] LABS: ALB/GLOB Ratio 1.6 RATIO (0.9-2.4); AST(SGOT) 19 U/L (<=31); Alanine Aminotransfer ALT/SGPT 12 U/L (<=34); Albumin, Serum 3.9 g/dL (3.4-4.8); Alkaline Phosphatase 64 U/L (35-104); Anion Gap 11 (5-15); BUN 36 mg/dL (4-19); BUN/Creat Ratio 22.9 RATIO (10-20); Calcium,Total 9.7 mg/dL (7.6-11.0); Chloride 96 mmol/L (98-108); Creatinine, Serum 1.56 mg/dL (0.70-1.20); EST Glomerular Filtration Rate 37 (>60); Globulin 2.5 g/dL (2.2-4.2); Glucose 119 mg/dL (70-99); Pro- Brain NATRIURETIC PEPTIDE 867 pg/mL (<=900); Protein, Total 6.4 g/dL (5.9-8.4); Sodium Level 139 mmol/L (133-145)
== END | disposition home or self-care (01) ==
LOC: VSLAB 12:05
PROVIDERS: PCP Nurse Practitioner Family; Visit Provider Nurse Practitioner Family
DX: R22.43 Localized swelling, mass and lump, lower limb, bilateral (principal); I50.9 Heart failure, unspecified
CPT/HCPCS: 36415; 80053; 83880; 85025

== ENCOUNTER → 2024-06-20 | Outpatient (CLI) | payer MEDICARE, MEDICAID, SELFPAY | END | disposition home or self-care (01) | LOC: SL 19:56 | PROVIDERS: PCP Nurse Practitioner Family; Referring Provider Nurse Practitioner Family; Visit Provider Nurse Practitioner Family | DX: G47.10 Hypersomnia, unspecified (principal) | CPT/HCPCS: 95810 ==

== ENCOUNTER → 2024-07-04 | Outpatient (CLI) | payer MEDICARE, MEDICAID, SELFPAY | END | disposition home or self-care (01) | LOC: VSLAB 11:13 | PROVIDERS: PCP Nurse Practitioner Family | DX: E03.9 Hypothyroidism, unspecified (principal) | CPT/HCPCS: 36415; 84443 ==

== ENCOUNTER → 2024-07-11 | Outpatient (CLI) | payer MEDICARE, MEDICAID, SELFPAY ==
[2024-07-11 13:00] LABS: Absolute Lymphocyte Count 1.23 X10^3/uL (0.83-4.51); Absolute Neutrophil Count 7.3 X10^3/uL (2.0-7.7); Basophil# 0.05 X10^3/uL; Basophil% 0.5 % (0-1); Eosinophil# 0.23 X10^3/uL; Eosinophils% 2.4 % (0-5); Hematocrit 39.2 % (37-47); Hemoglobin 12.6 g/dL (12.0-15.0); Lymphocyte # 1.23 X10^3/ul (0.83-4.51); Mean Corp Hgb Conc 32.1 g/dL (32-36); Mean Corpuscular Hgb 30.1 pg (27.0-32.0); Mean Corpuscular Volume 93.6 fL (81-99); Mean Platelet Vol. 9.9 fl (6.2-12.0); Monocyte# 0.59 X10^3/uL; Monocyte% 6.2 % (0-10); NRBC Flagged by Analyzer 0 % (0-5); Neutrophil # 7.32 X10^3/uL (2.7-7.7); Neutrophil % 77.2 % (47-70); Platelet Count 200 K/mm3 (150-450); RBC Distribution Width CV 12.7 % (11.6-14.6); RBC Distribution Width SD 43.6 fl (35.1-43.9); Red Blood Count 4.19 M/mm3 (4.2-5.4); White Blood Count 9.5 K/mm3 (4.4-11.0)
[2024-07-11 13:37] LABS: Anion Gap 10 (5-15); BUN 25 mg/dL (4-19); BUN/Creat Ratio 17.6 RATIO (10-20); Calcium,Total 9.6 mg/dL (7.6-11.0); Carbon Dioxide 33.5 mmol/L (21.0-32.0); Chloride 99 mmol/L (98-108); Creatinine, Serum 1.41 mg/dL (0.70-1.20); EST Glomerular Filtration Rate 42 (>60); Glucose 122 mg/dL (70-99); Potassium 4.2 mmol/L (3.3-5.1); Pro- Brain NATRIURETIC PEPTIDE 988 pg/mL (<=900); Sodium Level 143 mmol/L (133-145)
== END | disposition home or self-care (01) ==
LOC: LAB 11:37
PROVIDERS: PCP Nurse Practitioner Family; Referring Provider Nurse Practitioner Gerontology; Visit Provider Nurse Practitioner Gerontology
DX: I50.23 Acute on chronic systolic (congestive) heart failure (principal); R06.02 Shortness of breath
CPT/HCPCS: 36415; 80048; 83880; 85025

== ENCOUNTER → 2024-07-13 | Outpatient (CLI) | payer MEDICARE, MEDICAID, SELFPAY ==
[2024-07-13 13:03] LABS: Absolute Lymphocyte Count 1.42 X10^3/uL (0.83-4.51); Absolute Neutrophil Count 5.8 X10^3/uL (2.0-7.7); Basophil# 0.05 X10^3/uL; Basophil% 0.6 % (0-1); Eosinophil# 0.22 X10^3/uL; Eosinophils% 2.7 % (0-5); Hematocrit 37.4 % (37-47); Hemoglobin 12.1 g/dL (12.0-15.0); Lymphocyte # 1.42 X10^3/ul (0.83-4.51); Lymphocyte % 17.3 % (19-41); Mean Corp Hgb Conc 32.4 g/dL (32-36); Mean Corpuscular Hgb 30.3 pg (27.0-32.0); Mean Corpuscular Volume 93.5 fL (81-99); Mean Platelet Vol. 9.6 fl (6.2-12.0); Monocyte# 0.68 X10^3/uL; Monocyte% 8.3 % (0-10); NRBC Flagged by Analyzer 0 % (0-5); Neutrophil # 5.81 X10^3/uL (2.7-7.7); Platelet Count 174 K/mm3 (150-450); RBC Distribution Width CV 12.7 % (11.6-14.6); RBC Distribution Width SD 43.6 fl (35.1-43.9); White Blood Count 8.2 K/mm3 (4.4-11.0)
[2024-07-13 14:18] LABS: ALB/GLOB Ratio 1.3 RATIO (0.9-2.4); AST(SGOT) 22 U/L (<=31); Alanine Aminotransfer ALT/SGPT 12 U/L (<=34); Albumin, Serum 3.7 g/dL (3.4-4.8); Alkaline Phosphatase 79 U/L (35-104); Anion Gap 12 (5-15); BUN 27 mg/dL (4-19); BUN/Creat Ratio 16.8 RATIO (10-20); Calcium,Total 9.8 mg/dL (7.6-11.0); Carbon Dioxide 33.3 mmol/L (21.0-32.0); Chloride 96 mmol/L (98-108); Creatinine, Serum 1.62 mg/dL (0.70-1.20); EST Glomerular Filtration Rate 35 (>60); Ferritin 118 ng/mL (22-378); Glucose 97 mg/dL (70-99); Iron 52 ug/dL (50-170); Iron Binding Capacity,Total 275 ug/dL (250-450); Iron Binding Capacity,Unsat 223 ug/dL (228-428); LDH 337 U/L (84-246); Protein, Total 6.7 g/dL (5.9-8.4); Sodium Level 141 mmol/L (133-145); Total Bilirubin 0.27 mg/dL (0.00-1.30)
== END | disposition home or self-care (01) ==
LOC: LAB 12:40
PROVIDERS: PCP Nurse Practitioner Family; Referring Provider Internal Medicine Medical Oncology; Visit Provider Internal Medicine Medical Oncology
DX: D50.0 Iron deficiency anemia secondary to blood loss (chronic) (principal)
CPT/HCPCS: 36415; 80053; 82728; 83540; 83550; 83615; 85025

== ENCOUNTER → 2024-07-18 | Outpatient (CLI) | payer MEDICARE, MEDICAID, SELFPAY ==
--- NOTE | 2024-07-18 11:46 | BI_ITS ---
EXAM: SCRN MAMM (CAD)W/HUSSAIN BILAT DATE: 07/18/2024 CLINICAL HISTORY: F, Age 63 y/o , SCREENING No family history. BREAST CANCER RISK ASSESSMENT: Not assessed. TECHNIQUE: Bilateral screening digital breast tomosynthesis with 2D and 3D images. Computer aided detection. COMPARISON: Prior exam(s) dated outside examination dated October 25, 2020.. FINDINGS: TISSUE DENSITY: The breast tissue is composed of scattered area of fibroglandular density. Bilateral Breast Mammographic Findings: No significant masses, calcifications or other abnormalities are identified. No suspicious masses, areas of developing architectural distortion, or suspicious calcifications. There has been no significant interval change. BI/SCRN MAMM (CAD)W/HUSSAIN BILAT IMPRESSION: OVERALL FINAL ASSESSMENT: BIRADS 1 NEGATIVE RECOMMENDATION: Routine annual follow-up in 1 Year A letter with findings and recommendations will be mailed to the patient. Reading Location: [id number]
== END | disposition home or self-care (01) ==
LOC: OPBI 11:45
PROVIDERS: PCP Nurse Practitioner Family
DX: Z12.31 Encounter for screening mammogram for malignant neoplasm of breast (principal)
CPT/HCPCS: 77063; 77067

== ENCOUNTER → 2024-08-01 | Outpatient (CLI) | payer MEDICARE, MEDICAID, SELFPAY ==
[2024-08-01 12:42] LABS: Absolute Lymphocyte Count 1.74 X10^3/uL (0.83-4.51); Absolute Neutrophil Count 7.2 X10^3/uL (2.0-7.7); Basophil# 0.09 X10^3/uL; Basophil% 0.9 % (0-1); Eosinophil# 0.33 X10^3/uL; Eosinophils% 3.3 % (0-5); Hematocrit 39.4 % (37-47); Hemoglobin 12.8 g/dL (12.0-15.0); Lymphocyte # 1.74 X10^3/ul (0.83-4.51); Lymphocyte % 17.2 % (19-41); Mean Corp Hgb Conc 32.5 g/dL (32-36); Mean Corpuscular Volume 92.3 fL (81-99); Mean Platelet Vol. 9.8 fl (6.2-12.0); Monocyte# 0.69 X10^3/uL; Monocyte% 6.8 % (0-10); NRBC Flagged by Analyzer 0 % (0-5); Neutrophil # 7.22 X10^3/uL (2.7-7.7); Neutrophil % 71.4 % (47-70); Platelet Count 205 K/mm3 (150-450); RBC Distribution Width CV 12.9 % (11.6-14.6); RBC Distribution Width SD 43.9 fl (35.1-43.9); Red Blood Count 4.27 M/mm3 (4.2-5.4); White Blood Count 10.1 K/mm3 (4.4-11.0)
[2024-08-01 13:14] LABS: Anion Gap 12 (5-15); BUN 31 mg/dL (4-19); BUN/Creat Ratio 20.4 RATIO (10-20); Calcium,Total 9.9 mg/dL (7.6-11.0); Carbon Dioxide 30.8 mmol/L (21.0-32.0); Chloride 97 mmol/L (98-108); Creatinine, Serum 1.54 mg/dL (0.70-1.20); EST Glomerular Filtration Rate 37 (>60); Glucose 114 mg/dL (70-99); Potassium 4.4 mmol/L (3.3-5.1); Sodium Level 140 mmol/L (133-145)
[2024-08-01 16:31] LABS: Color, Urine Straw (Yellow); Glucose, Dipstick 1000 mg/dl (Normal); Ketone-Dipstick Negative (Negative); Leukocyte Esterase-Dipstick Negative /ul (Negative); Nitrite-Dipstick Negative (Negative); Occult Blood-Urine Negative /ul (Negative); Protein-Dipstick Negative (Negative); Specific Gravity, Urine 1.015 (1.002-1.030); Urine Bilirubin Dipstick Negative (Negative); Urine Clarity Clear (Clear); Urine Urobilinogen Normal (Normal)
== END | disposition home or self-care (01) ==
LOC: VSLAB 12:16
PROVIDERS: PCP Nurse Practitioner Family
DX: R10.9 Unspecified abdominal pain (principal); N18.32 Chronic kidney disease, stage 3b
CPT/HCPCS: 36415; 80048; 81002; 85025; 87077; 87086; 87088; 87186

== ENCOUNTER → 2024-08-03 | Outpatient (CLI) | payer MEDICARE, MEDICAID, SELFPAY ==
[2024-08-03 12:56] LABS: Anion Gap 13 (5-15); BUN 31 mg/dL (4-19); BUN/Creat Ratio 22.4 RATIO (10-20); Calcium,Total 10.2 mg/dL (7.6-11.0); Carbon Dioxide 31.5 mmol/L (21.0-32.0); Chloride 97 mmol/L (98-108); Creatinine, Serum 1.36 mg/dL (0.70-1.20); EST Glomerular Filtration Rate 43 (>60); Glucose 135 mg/dL (70-99); Potassium 4.2 mmol/L (3.3-5.1); Sodium Level 141 mmol/L (133-145)
== END | disposition home or self-care (01) ==
LOC: VSLAB 09:46
PROVIDERS: PCP Nurse Practitioner Family
DX: N18.32 Chronic kidney disease, stage 3b (principal)
CPT/HCPCS: 36415; 80048

== ENCOUNTER → 2024-08-07 | Outpatient (CLI) | payer MEDICARE, MEDICAID, SELFPAY ==
[2024-08-07 14:13] LABS: Anion Gap 13 (5-15); BUN 32 mg/dL (4-19); BUN/Creat Ratio 20.8 RATIO (10-20); Calcium,Total 9.2 mg/dL (7.6-11.0); Carbon Dioxide 29.8 mmol/L (21.0-32.0); Chloride 96 mmol/L (98-108); Creatinine, Serum 1.53 mg/dL (0.70-1.20); EST Glomerular Filtration Rate 38 (>60); Glucose 151 mg/dL (70-99); Potassium 3.4 mmol/L (3.3-5.1); Sodium Level 138 mmol/L (133-145)
== END | disposition home or self-care (01) ==
LOC: LAB 12:06
PROVIDERS: PCP Nurse Practitioner Family
DX: N18.32 Chronic kidney disease, stage 3b (principal); R29.6 Repeated falls
CPT/HCPCS: 36415; 80048

== ENCOUNTER → 2024-08-11 | Outpatient (CLI) | payer MEDICARE, MEDICAID, SELFPAY ==
--- NOTE | 2024-08-11 09:49 | VDLE_ITS ---
Reason For Study Reason For Study: BLE PAin / Swelling RIGHT LEFT CFV is compressible, spontaneous, phasic, competent CFV is compressible, spontaneous, phasic, competent, and demonstrates normal augmentation. and demonstrates normal augmentation. FV is compressible, spontaneous, phasic, competent FV is compressible, spontaneous, phasic, competent and demonstrates normal augmentation. and demonstrates normal augmentation. POP V is compressible, spontaneous, phasic, competent POP V is compressible, spontaneous, phasic, competent and demonstrates normal augmentation. and demonstrates normal augmentation. T/P Trunk is compressible. T/P Trunk is compressible. PTV is compressible. PTV is compressible. RT PerV is compressible. LT PerV is compressible. SFJ is competent and measures 0.62 cm. SFJ is competent and measures 0.68 cm. GSV proximal thigh measures 0.49 x 0.46 cm. Lt GSV appears ablated. GSV at knee measures 0.25 x 0.28 cm. Multiple tortuous accessory veins noted. GSV INCOMPETENT throughout for greater than 0.5 ASV mid thigh is INCOMPETENT for greater than 0.5 seconds. seconds and measures 0.44 x 0.51 cm. ASV at knee is INCOMPETENT for greater than 0.5 ASV mid calf is INCOMPETENT for greater than 0.5 seconds and measures 0.37 x 0.38 cm. seconds and measures 0.39 x 0.45 cm. SSV at junction is competent and measures 0.26 cm. SSV at junction is competent and measures 0.31 cm. Procedure SSV mid calf is competent and measures 0.34 x 0.36 Exam performed in department. cm. This is a venous duplex using B-mode, color flow and spectral Doppler. The study was technically difficult. Patient was scanned in reverse Trendelenburg position during reflux assessment. VL/Venous Duplex US - [facility] Extrem Interpretation Summary Deep veins of the bilateral lower extremities are patent and compressible segme ntally. There is no evidence of bilateral lower extremity deep vein thrombosis. The right great saphenous vein appears pa tent and compressible segmentally. Positive for reflux in the right great saphenous vein throughout, accessory sap henous vein at the knee. Positive for reflux in the left accessory saphenous vein in the thigh, accessor y saphenous vein in the calf. Ordering Physician: Esha Torres Referring Physician: Eric Marion Performed By: Vick Acevedo RVT
== END | disposition home or self-care (01) ==
LOC: CVS 09:45
PROVIDERS: PCP Nurse Practitioner Family; Referring Provider Physician Assistant; Visit Provider Physician Assistant
DX: R60.0 Localized edema (principal); I87.2 Venous insufficiency (chronic) (peripheral)
CPT/HCPCS: 93970

== ENCOUNTER → 2024-08-15 | Outpatient (CLI) | payer MEDICARE, MEDICAID, SELFPAY | END | disposition home or self-care (01) | PROVIDERS: PCP Nurse Practitioner Family; Referring Provider Nurse Practitioner Family; Visit Provider Nurse Practitioner Family | DX: G47.33 Obstructive sleep apnea (adult) (pediatric) (principal) ==

== ENCOUNTER → 2024-08-21 | Outpatient (CLI) | payer MEDICARE, MEDICAID, SELFPAY ==
[2024-08-21 14:00] LABS: Amphetamine Urine NEGATIVE (<1000 ng/mL); Barbiturate Urine NEGATIVE (< 200 ng/mL); Benzodiazepine Urine NEGATIVE (< 200 ng/mL); Buprenorphine Urine NEGATIVE (< 200 ng/mL); Cocaine Urine NEGATIVE (< 300 ng/mL); Fentanyl, Urine NEGATIVE; Methadone Urine NEGATIVE (< 300 ng/mL); Opiates Urine PRESUMPTIVE POSITIVE (< 300 ng/mL); Oxycodone, Urine NEGATIVE (< 100 ng/mL); PCP Urine NEGATIVE (< 25 ng/mL); THC Urine NEGATIVE (< 50 ng/mL)
== END | disposition home or self-care (01) ==
LOC: LAB 12:04
PROVIDERS: PCP Nurse Practitioner Family; Referring Provider Anesthesiology Pain Medicine; Visit Provider Anesthesiology Pain Medicine
DX: F11.20 Opioid dependence, uncomplicated (principal)
CPT/HCPCS: 80307

== ENCOUNTER 2024-08-25 11:58 | Emergency (ER) | payer MEDICARE, MEDICAID, SELFPAY ==
[2024-08-25 12:00] VITALS: BP 141/69; PULSE 58; RESP 20; TEMP 36.6; O2SAT 100; BMI 39.3
== END 2024-08-25 14:06 | disposition left against medical advice (07) ==
LOC: ED 14:08
PROVIDERS: PCP Nurse Practitioner Family
DX: Z53.21 Procedure and treatment not carried out due to patient leaving prior to being seen by health care provider (principal)

== ENCOUNTER → 2024-08-29 | Outpatient (CLI) | payer MEDICARE, MEDICAID, SELFPAY ==
--- NOTE | 2024-08-29 08:41 | RDU_ITS ---
Reason For Study Reason For Study: CKD Right Renal Artery Left Renal Artery Right renal artery ostium 165.6/33.4 Left renal artery ostium 75.7/24.7 RSV/EDV. PSV/EDV. Right renal artery proximal 147.4/41.2 Left renal artery proximal PSV/EDV PSV/EDV. 70.3/17.1 . Right renal artery mid 81.5/28.3 PSV/EDV. Left renal artery mid 78.3/19.8 PSV/EDV . Right renal artery distal 94.8/24.5 Left renal artery distal 70.9/18.0 PSV/EDV. PSV/EDV. Right RAR 2.14. Left RAR 1.01. Right Renal Parenchyma Left Renal Parenchyma Upper Pole Medula 37.3/14.5 PSV/EDV. Left upper pole medulla 26.4/8.5 Right upper pole medulla EDR 0.40 . PSV/EDV . Right upper pole medulla R.I. 0.61 . Left upper pole medulla EDR 0.30 . Upper Jeffy Cortx 17.3/7.2 PSV/EDV. Left upper pole medulla R.I. 0.68 . Right upper pole cortex EDR 0.40 . UP Cortex 17.0/5.6 PSV/EDV. Right upper pole cortex R.I. 0.58 . Left upper pole cortex EDR 0.30 . Right lower Pole medulla 22.7/10.9 Left upper pole cortex R.I. 0.67 . PSV/EDV . Left lower Pole medulla 40.1/9.4 Right lower pole medulla EDR 0.50 . PSV/EDV . Right lower pole medulla R.I. 0.52 . Left lower pole medulla EDR 0.20 . Lower Pole Cortex 9.9/4.2 PSV/EDV. Left lower pole medulla R.I. 0.77 . Right lower pole cortex EDR 0.40 . Lower Pole Cortx 18.4/7.0 PSV/EDV. Right lower pole cortex R.I. 0.57 . Left lower pole cortex EDR 0.40 . Right Renal Hilar Left lower pole cortex R.I. 0.62 . Right Hilar avg 55.7/15.5 PSV/EDV. Left Renal Hilar Right hilar acceleration time 40 m/sec. LT Hilar avg 50.3/12.0 PSV/EDV . Right Renal Dimensions Left hilar acceleration time 40 m/sec. Right kidney size 7.05 cm . Left Renal Dimensions Right cortical dimension 1.25 cm . Left kidney size 8.85 cm . Left cortical dimension 1.43 cm . Aorta Proximal abdominal aorta 2.04 x 2.09 cm . Proximal abdominal aorta peak systolic velocity is 100.6 cm/sec . Distal abdominal aorta 1.60 x 1.58 cm . Distal abdominal aorta peak systolic velocity is 77.3 cm/sec . Procedures Renal Artery Duplex with B-Mode, Color and Pulsed Wave Doppler. Exam performed in department Technically Difficult study due to patient positioning / sensitivity to probe pressure. VL/Renal Artery Duplex Ultrasound Interpretation Summary Right renal artery patent with normal velocities and no evidence of stenosis. Left renal artery patent with normal velocities and no evidence of stenosis. Right renal vein patent. Left renal vein patent. Right kidney diminshed in size. Left kidney diminshed in size. Ordering Physician: Katya Russell Referring Physician: Katya Russell Performed By: Vick Acevedo, RVT
== END | disposition home or self-care (01) ==
PROVIDERS: PCP Nurse Practitioner Family
DX: N18.32 Chronic kidney disease, stage 3b (principal)
CPT/HCPCS: 93975

== ENCOUNTER → 2024-09-04 | Outpatient (CLI) | payer MEDICARE, MEDICAID, SELFPAY ==
--- NOTE | 2024-09-04 10:42 | US_ITS ---
PROCEDURE: TRANSVAGINAL NON- 09/04/2024 REASON FOR EXAM: PELVIC AND PERINEAL PAIN TECHNIQUE: Transabdominal and transvaginal pelvic ultrasound with color Doppler evaluation COMPARISON: None. FINDINGS: Uterus: Surgically absent Right ovary: Not visualized due to shadowing bowel gas and patient's pain tolerance Left ovary: visualized due to shadowing bowel gas and patient's pain tolerance Other adnexal findings: None. Cul-de-sac: No free intraperitoneal fluid identified. US/Transvaginal Non- IMPRESSION: 1. Markedly limited exam, with nonvisualization of the ovaries due to shadowin g bowel gas and patient's pain tolerance. 2. Prior hysterectomy. Reading Location: [id number]
== END | disposition home or self-care (01) ==
LOC: US 10:40
PROVIDERS: PCP Nurse Practitioner Family
DX: R10.2 Pelvic and perineal pain (principal)
CPT/HCPCS: 76830

== ENCOUNTER 2024-09-13 16:20 | Inpatient (IN) | payer MEDICARE, MEDICAID, SELFPAY ==
[2024-09-13] VITALS (9 sets, daily range): BP systolic 86–120; BP diastolic 44–65; PULSE 44–70; RESP 12–20; TEMP 36.4–37.1; O2SAT 94–100; BMI 36.3; BMI 37.7
--- NOTE | 2024-09-13 16:49 | EKG12_ITS ---
Test Reason : CP Blood Pressure : */* mmHG Vent. Rate : 62 BPM Atrial Rate : 62 BPM P-R Int : 204 ms QRS Dur : 88 ms QT Int : 610 ms P-R-T Axes : 62 29 37 degrees QTcB Int : 619 ms Critical Test Result: Atrial fibrillation Nonspecific T wave abnormality Prolonged QT Abnormal ECG Confirmed by TISHA HERRING, AMMON ([id number]), dough cutting machine operator CHINTAN KHAN ([id number]) on 09/14/2024 2:17:05 PM Referred By: Randee Tuttle Confirmed By: AMMON GILES MD
--- NOTE | 2024-09-13 16:49 | EKG12_ITS ---
Test Reason : CP Blood Pressure : */* mmHG Vent. Rate : 62 BPM Atrial Rate : 62 BPM P-R Int : 204 ms QRS Dur : 88 ms QT Int : 610 ms P-R-T Axes : 62 29 37 degrees QTcB Int : 619 ms Critical Test Result: Atrial fibrillation Nonspecific T wave abnormality Prolonged QT Abnormal ECG Confirmed by TISHA HERRING, AMMON ([id number]), legal editor CHINTAN KHAN ([id number]) on 09/14/2024 2:17:05 PM Referred By: Randee Tuttle Confirmed By: AMMON GILES MD
--- NOTE | 2024-09-13 16:59 | EDS_ITS ---
HPI History of Present Illness Chief Complaint: Chest Pain Informant: patient Narrative Narrative: Patient is a 63-year-old female with relatively extensive past medical history including heart failure with preserved ejection fraction, lymphedema, proximal atrial fibrillation (on Eliquis), spondylolisthesis, thoracic myelopathy, bradycardia, hypertenstion, COPD, coronary artery disease (denies any prior stents or CABG) and schizoaffective disorder with bipolar type as well as hypothyroidism presenting with chest pain. Patient states has been having severe chest pressure for the past 2 to 3 days. It is over the left side of her anterior chest. It is intermittent. States started when she was just sitting watching TV. [place] like something was sitting on her chest. She states it feels like the last time she had her double heart attack. She denies any ripping or tearing sensation. She denies any numbness or tingling to his extremities. She states today she was having more frequent pressure and more intense pressure was what triggered her to call 911. She notes she feels mildly short of breath with this. She denies associate cough, nausea or vomiting. She denies any new swelling of her legs. She does have acid reflux and chronic pain her left lower quadrant is post have a CT for this. She states that whenever she swallows liquids it feels that is getting clogged in her lower chest. Denies any change with the temperature of the water. She states that eating is okay however. She notes her symptoms are worse with movement, deep breathing as well as drinking. She does not have her gallbladder. No other complaints or concerns reported at this time. Denies any recent trauma or falls. [facility] Medical History Elevated brain natriuretic peptide (BNP) level Hypoxia Elevated troponin Heart failure Chronic kidney disease History of diabetes mellitus Chronic venous insufficiency History of atrial fibrillation Chronic anticoagulation Edema, peripheral Left shoulder pain Wears hearing aid Post-menopausal Depression Anxiety History of steroid therapy Walker as ambulation aid Kidney stones Arthritis Back pain History of IBS Former smoker COPD (chronic obstructive pulmonary disease) Shortness of breath on exertion Thyroid disease History of heart attack History of stress test History of echocardiogram Low platelet count Anemia History of ESBL E. coli infection Morbid obesity with BMI of 40.0-44.9, adult Congestive heart failure Peripheral edema History of CHF (congestive heart failure) History of atrial fibrillation History of hypertension Chest pain of uncertain etiology Bradycardia History of tobacco use History of diabetes mellitus, type II History of COPD Acute hypotension Pulmonary hypertension, secondary Abdominal ascites Diverticulitis large intestine w/o perforation or abscess w/bleeding Pericardial effusion with cardiac tamponade Chronic kidney disease History of cardiac arrest Chest pain Wears glasses Wears dentures Substance abuse Alcohol use Rash Gout High cholesterol PVD (peripheral vascular disease) Easy bruising Seizures Dietary restriction Gastric reflux Injury of back Vapes nicotine containing substance Fall History of pain when walking History of edema Insomnia Major depression On home oxygen therapy Emphysema, unspecified Neuropathy Cardiology follow-up encounter History of ulceration DKA (diabetic ketoacidosis) Cardiac arrest senior living current use of anticoagulant Encounter for infusaport central venous catheter removal Lichen sclerosus Macular degeneration Essential hypertension Decreased left ventricular function Paroxysmal atrial fibrillation Diverticulosis Migraine Iron deficiency anemia COPD (chronic obstructive pulmonary disease) Port-A-Cath in place Acid reflux IBS (irritable bowel syndrome) CHF (congestive heart failure) Neuropathy Kidney failure Hypothyroid Schizoaffective disorder, bipolar type Emphysema lung Diabetes Heart attack Home Medications ?Medication ?Instructions ?Recorded ?Last Taken ?Type apixaban 5 mg tablet (Eliquis) 5 mg PO BID blood thinn er 12/24/22 03/15/24 History atorvastatin 20 mg tablet 20 mg PO DAILY cholesterol 1 07/27/23 History gabapentin 300 mg capsule 300 mg PO TID nerve pain 07/27/23 History trazodone 100 mg tablet 100 mg PO QHS sleep 01/01/23 07/26/23 History aripiprazole 20 mg tablet 20 mg PO QHS mental health 0 03/09/23 03/18/24 History fluticasone propionate 50 1 spray intranasal DAILY PRN 04/27/23 Unknown History mcg/actuation nasal allergy symptoms spray,suspension divalproex 500 mg tablet,extended 500 mg PO QHS seizur e 07/25/23 07/27/23 History release 24 hr levothyroxine 100 mcg tablet 100 mcg PO DAILY thyroid 07/25/23 07/27/23 History insulin glargine 100 unit/mL (3 20 unit subcut DAILY d iabetes 10/13/23 Unknown History mL) subcutaneous pen (Lantus Solostar U-100 Insulin) clotrimazole-betamethasone 1 1 applic topical BID skin 12/24/23 Unknown History %-0.05 % topical cream irritation empagliflozin 25 mg tablet 25 mg PO QAM diabetes 12/2303/17/24 History (Jardiance) epinephrine 0.3 mg/0.3 mL 0.3 mg IM ONCE allergic reac tion 12/24/23 Unknown History injection, auto-injector (EpiPen 2-Wayne) meloxicam 7.5 mg tablet 7.5 mg PO QDAY PRN pain 12/06 10/29 Unknown History pantoprazole 40 mg tablet,delayed 40 mg PO QDAY acid r eflux 12/24/23 Unknown History release nystatin 100,000 unit/gram topical 1 applic topical BI D skin 01/06/24 Unknown History powder irritation docusate sodium 100 mg capsule 100 mg PO BID PRN const ipation 03/07/24 Unknown History (Colace) tobramycin 0.3 %-dexamethasone 1 drp ophthalmic (eye) .Q4-6H 03/07/24 Unknown History 0.05 % eye drops,suspension (Tobradex ST) linaclotide 145 mcg capsule 145 mcg PO QAM bowels #60 caps 03/10/24 Unknown Rx (Linzess) methocarbamol 500 mg tablet 500 mg PO 4X/DAY PRN Muscl e 03/16/24 Unknown Rx pain/spasm #40 tabs hydrocodone-acetaminophen 5-325mg 1 tab PO Q6H PRN felisha n 5 days #20 03/28/24 Unknown Rx 5mg-325mg tabs atropine 1 % eye drops 1 drp PO BID eye health 04/09 08/30 Unknown History peg 400-propylene glycol 0.4 %-0.3 1 drp EACH EYE AIDE Y PRN dry eye(s) 05/03/24 Unknown History % eye drops (Lubricant Eye (PG-PEG 400)) furosemide 40 mg tablet (Lasix) 40 mg PO .COMPLEX 05/07 06/30 Unknown History hydrocortisone 2.5 % topical cream 1 applic topical BI D PRN 05/29/24 Unknown History sodium sul 1.479 gram-potas ch 1 tab PO PER PKG DIR Unknown History 0.188 gram-magnes sul 0.225 gram tablet (Sutab) dulaglutide 0.75 mg/0.5 mL 0.75 mg subcut QWEEK Unknown History subcutaneous pen injector (Trulicity) diclofenac 1.5 % solution and 2 ea topical 4X/DAY 07/06 05/30 Unknown History menthol 10 %-camphor 4 % gel topical kit metolazone 2.5 mg tablet 2.5 mg PO QDAY #90 tabs 08/06 08/30 Unknown Rx valbenazine 40 mg capsule 40 mg PO QDAY 08/21/24 Unkno wn History (Ingrezza) fluticasone fur. 100 mcg-umeclid 1 inh inhalation Q24H #60 ea 09/11/24 Unknown Rx 62.5 mcg-vilant 25 mcg inhalat.powder (Trelegy Ellipta) Allergy/AdvReac Type Severity Reaction Status Date / Time aspirin Allergy Mild Hives Verified 08/28/24 15:35 erythromycin base Allergy Mild Hives Verified 08/28/24 15:35 Penicillins Allergy Mild Hives Verified 08/28/24 15:35 polyethylene glycol 3350 Allergy Mild Nausea/Vom/ Verified 08/28/24 15:35 (From Miralax) Diarrhea tramadol Allergy Mild Hives Verified 08/28/24 15:35 tomato Allergy Food Verified 08/28/24 15:35 Allergy Family History Mother Heart disease Hypertension Cancer Father Brain aneurysm age 40 CVA (cerebral vascular accident) Cancer Brother Colon cancer Surgical History History of lumbar laminectomy (~03/2024) Hx of surgical procedure History of bilateral knee replacement Hx of vein stripping Hx of toe surgery History of lithotripsy History of delivery History of bilateral cataract extraction History of cholecystectomy H/O: hysterectomy Social History household members: caregiver Smoking Status: Current every day smoker tobacco type: cigarettes and e- cigarettes Tobacco: How many years used: 18 Electronic Cigarette Use: with nicotine second hand exposure: No alcohol intake: never substance use type: does not use caffeine: Yes ROS ROS ED Constitutional Constitutional ED: Denies chills or fever(s) ENT ENT ED: Denies sore throat Cardiovascular Cardiovascular: Reports as per HPI and chest pain; Denies palpitations or racing heartbeat Respiratory/Chest Respiratory/Chest: Reports dyspnea; Denies cough or sputum Gastrointestinal Gastrointestinal: Denies nausea or vomiting Musculoskeletal Musculoskeletal: Denies arthralgias or myalgias Integumentary Denies rash Neurologic Neurologic: Denies paresthesias or weakness Hematologic/Lymphatic Hematologic/Lymphatic: Reports easy bleeding, easy bruising and other Details: on eliquis EXAM Physical Exam Const Vital Signs: 09/13/24 16:23 09/13/24 16:29 09/13/24 17:00 Temperature 97.5 F L Temperature Source Oral Pulse Rate 44 L Respiratory Rate 20 H Respiratory Effort Normal Blood Pressure 95/44 L Blood Pressure Mean 61 Pulse Ox 97 Oxygen Delivery Method Room Air Room Air 09/13/24 17:21 09/13/24 18:00 09/13/24 18:58 Temperature 98.4 F 98.7 F 98.7 F Temperature Source Oral Oral Oral Pulse Rate 61 65 70 Respiratory Rate 19 H 12 14 Respiratory Effort Blood Pressure 86/63 L 120/57 L 114/65 Blood Pressure Mean 70 78 81 Pulse Ox 94 96 100 Oxygen Delivery Method Room Air Room Air Room Air 09/13/24 20:00 09/13/24 20:24 Temperature 98.2 F 98.1 F Temperature Source Oral Pulse Rate 62 67 Respiratory Rate 20 H 19 H Respiratory Effort Blood Pressure 106/52 L 109/58 L Blood Pressure Mean 70 75 Pulse Ox 97 97 Oxygen Delivery Method Room Air Positive well nourished and obese General Appearance ED: NAD Nutritional Appearance: obese HEENT Reports dry mucous membranes Mouth ED: Yes dry mucous membranes Mouth: dry mucous membranes Eyes PERRL Neck supple and no JVD Chest Wall inspection of chest normal Chest Narrative: No chest wall crepitus. Tenderness palpation over the sternum and to the left Resp normal respiratory effort and clear to auscultation bilaterally Auscultation: diminished lung sounds bilateral lower; Negative for rhonchi or wheezes Cardio regular rhythm and no murmurs Rate: bradycardia GI soft to palpation and non-distended GI Narrative: Tenderness to palpation epigastric region as well as the right lower quadrant (patient states this is chronic) Extremity normal to inspection General Extremety ED: Negative for edema General Extremity: Negative for edema Neuro oriented x3 Sensorium / Orientation: awake and alert Motor Exam: general weakness Psych mental status grossly normal Skin no rashes or lesions noted and no wounds Heart Score History: Slightly/Non-Suspicious ECG: Nonspecific Repolarization Age: >45 - <65 years Risk Factors: >/= 3 Risk Factors or History of CAD Troponin: >/=3 x Normal Limit Score: 6 MDM MDM MDM Narrative Medical decision making narrative: Patient presents the ER for chest pressure for the past 3 days. She also has mild shortness of breath with this. She is anticoagulant Eliquis for atrial fibrillation. In addition she does note some ongoing right lower quadrant abdominal pain states that she has an outpatient CT ordered. Upon arrival patient clinically appears dehydrated with dry mucosal membranes and has a soft blood pressures. She states that she has been eating and drinking. Differential includes ACS, pneumonia, symptomatic anemia, pleurisy, diverticulitis, urinary tract infection, CHELSEY, electrolyte derangements, chest wall pain. EKG is read as normal sinus rhythm at a rate of 62 beats per minutes by computer interpretation however I suspect there might be an underlying atrial flutter with 4:1 conduction versus tremor. No acute ischemic changes noted. Prolonged QTc presents. CBC shows a mild leukocytosis but normal hemoglobin. BMP shows significant hypokalemia with potassium of 2.4 and an elevation of her anion gap at 18. Addition her creatinine is elevated at 2.43 and a BUN of 79, patient's baseline creatinine is 1.3-1.5 and her baseline BUN is 30. This is consistent with acute kidney injury. Patient's blood pressure is fluid responsive which is also consistent with hypovolemia and I suspect this/volume depletion is the cause of her CHELSEY. Her liver enzymes are normal. Her high-sensitivity troponin T is elevated at 94 and a repeat 84 however this is lower than what she was in April of this year. TSH is normal. Magnesium added on which is normal. Lipase is normal. Due to her laboratory abnormalities and a chest x-ray which shows concern of possible pneumonia in addition to a right lower quadrant abdominal pain will obtain CT of the chest abdomen pelvis without contrast. There is no acute infiltrate noted in the lungs however there is possible early changes of acute uncomplicated sigmoid diverticulitis. If she has pain and leukocytosis we will treat as this is diverticulitis with Cipro and Flagyl (has a penicillin allergy). Patient started on oral and IV potassium supplementation. Will be admitted for further treatment. Is given further IV fluids but will need close monitoring of this given her underlying heart disease. Case discussed with hospitalist, Dr. Del Cid Lab Data Attestation: I reviewed the patient's lab results. Labs: Laboratory Results - last 24 hr 09/13/24 09/13/24 09/13/24 16:56 17:51 19:00 WBC 12.0 H RBC 4.43 Hgb 13.0 Hct 38.6 MCV 87.1 MCH 29.3 MCHC 33.7 RDW Std Deviation 42.7 RDW Coeff of Penny 13.5 Plt Count 227 MPV 10.3 Immature Gran % (Auto) 0.400 Neut % (Auto) 78.0 H Lymph % (Auto) 13.3 L [place] % (Auto) 6.1 Eos % (Auto) 1.5 Baso % (Auto) 0.7 Absolute Neuts (auto) 9.4 H Absolute Lymphs (auto) 1.60 Nucleated RBC % 0 Sodium 136 Potassium 2.4 L* Chloride 86 L Carbon Dioxide 32.1 H Anion Gap 18 H BUN 79 H Creatinine 2.43 H Estim Creat Clear Calc 25.37 L Est GFR (MDRD) Non-Af 22 L BUN/Creatinine Ratio 32.4 H Glucose 177 H Lactic Acid 1.5 Calcium 9.7 Magnesium 2.2 Total Bilirubin 0.30 Direct Bilirubin 0.16 AST 24 ALT 9 Alkaline Phosphatase 85 Troponin T High Sens 94 H* D Troponin T Hi Sens 2 Hr 84 H* Total Protein 7.3 Albumin 4.1 Globulin 3.2 Lipase 28 TSH 1.280 Radiography Chest X-Ray - ED: 2 View, Read by ED Physician and Normal Diagnostic Testing: Clinical Impression(s) from Imaging Studies Chest X-Ray 09/13/24 17:00 IMPRESSION: Pulmonary findings as above. Reading Location: [id number] Chest/Abdomen/Pelvis CT 09/13/24 18:08 IMPRESSION: Short-segment sigmoid colon wall thickening in the region of diverticuli without significant surrounding inflammatory changes equivocal for acute uncomplicated sigmoid diverticulitis. Trace right pleural effusion. Reading Location: [id number] Rhythm Strip Rhythm Strip: Sinus Rhythm Rate: 62 Ectopy: None EKG Initial EKG: Attestation: I personally reviewed and interpreted this EKG as follows: Interpretation: Sinus Rhythm Comments: Normal sinus rhythm rate of 62 bpm with tremor versus atrial flutter with 4:1 conduction Normal axis Prolonged QTc (619) Normal ST segments Compared to prior EKG patient now appears to have underlying flutter and now with prolonged QTc Management Discussion w/another healthcare provider: Hospitalist Discharge Plan Triage Chief Complaint: Chest Pain ED Provider: Randee Tuttle Dx/Rx/DC Orders Clinical Impression: CHELSEY (acute kidney injury), Paroxysmal atrial fibrillation, Anticoagulant long- term use, Chest pain, Diverticulitis, Acute hypokalemia, Prolonged QT interval Prescriptions: No Action atorvastatin 20 mg tablet 20 mg PO DAILY Patient Comments: 5 PM Eliquis 5 mg tablet 5 mg PO BID Patient Comments: STOP 2-3 DAYS PRIOR TO SURGERY gabapentin 300 mg capsule 300 mg PO TID fluticasone propionate 50 mcg/actuation spray,suspension 1 spray intranasal DAILY PRN (Reason: allergy symptoms) Patient Comments: instill 2 sprays in each nostril daily nystatin 100,000 unit/gram powder 1 applic topical BID clotrimazole-betamethasone 1-0.05 % cream 1 applic topical BID epinephrine [EpiPen 2-Wayne] 0.3 mg/0.3 mL auto-injector 0.3 mg IM ONCE Rx Instructions: as a single dose; may repeat once meloxicam 7.5 mg tablet 7.5 mg PO QDAY PRN (Reason: pain) Patient Comments: STOP 5-7 DAYS PRIOR TO OR Jardiance 25 mg tablet 25 mg PO QAM Patient Comments: PCP WANTS PT TO STOP 3-4 DAYS PRIOR TO SURGERY pantoprazole 40 mg tablet,delayed release (DR/EC) 40 mg PO QDAY Linzess 145 mcg capsule 145 mcg PO QAM Qty: 60 2RF eysywkwhqc-dyrnowk-wkawdom 1.5-10-4 % kit 2 ea topical 4X/DAY furosemide [Lasix] 40 mg tablet 40 mg PO .COMPLEX Rx Instructions: 40 mg orally QAM and 3pm; hydrocortisone 2.5 % cream 1 applic topical BID PRN Sutab 1.479-0.188- 0.225 gram tablet 1 tab PO PER PKG DIR Rx Instructions: For colonoscopy Ingrezza 40 mg capsule 40 mg PO QDAY metolazone 2.5 mg tablet 2.5 mg PO QDAY Qty: 90 3RF Rx Instructions: take 2.5mg (1 tablet) with AM Furosemide Trulicity 0.75 mg/0.5 mL pen injector 0.75 mg subcut QWEEK trazodone 100 mg tablet 100 mg PO QHS Patient Comments: TAKE 1 TABLET BY MOUTH EVERY DAY AT NIGHT aripiprazole 20 mg tablet 20 mg PO QHS Patient Comments: TAKE ONE TABLET BY MOUTH DAILY AT 9AM divalproex 500 mg tablet extended release 24 hr 500 mg PO QHS levothyroxine 100 mcg tablet 100 mcg PO DAILY insulin glargine [Lantus Solostar U-100 Insulin] 100 unit/mL (3 mL) insulin pen 20 unit subcut DAILY Tobradex ST 0.3-0.05 % drops,suspension 1 drp ophthalmic (eye) .Q4-6H docusate sodium [Colace] 100 mg capsule 100 mg PO BID PRN (Reason: constipation) methocarbamol 500 mg tablet 500 mg PO 4X/DAY PRN (Reason: Muscle pain/spasm) Qty: 40 0RF atropine 1 % drops 1 drp PO BID Rx Instructions: administer to back of throat/tongue and swallow Lubricant Eye (PG-PEG 400) 0.4-0.3 % drops 1 drp EACH EYE DAILY PRN (Reason: dry eye(s)) hydrocodone-acetaminophen 5-325 mg tablet 1 tab PO Q6H PRN (Reason: pain) 5 Days Qty: 20 0RF Trelegy Ellipta 100-62.5-25 mcg blister with device 1 inh inhalation Q24H Qty: 60 11RF Primary Care Provider: Eric Marion Referrals: Eric Marion, ANDROID FRAMEWORK DEVELOPER-C [Primary Care Provider] - Print Language: Georgian Disposition Disposition: Acute Care Hospital [facility]
--- NOTE | 2024-09-13 17:00 | RAD_ITS ---
PROCEDURE: CHEST PA AND LATERAL 09/13/2024 REASON FOR EXAM: CHEST PAIN TECHNIQUE: CHEST PA AND LATERAL COMPARISON: 05/03/2024. FINDINGS: The heart is normal in size. Faint reticular opacities of the lung bases which may represent infection, mild edema, or scarring. No pleural effusion or pneumothorax. No acute osseous abnormalities. Right chest infusion port. RAD/Chest PA and Lateral IMPRESSION: Pulmonary findings as above. Reading Location: [place] [id number]
--- NOTE | 2024-09-13 17:00 | RAD_ITS ---
PROCEDURE: CHEST PA AND LATERAL 09/13/2024 REASON FOR EXAM: CHEST PAIN TECHNIQUE: CHEST PA AND LATERAL COMPARISON: 05/03/2024. FINDINGS: The heart is normal in size. Faint reticular opacities of the lung bases which may represent infection, mild edema, or scarring. No pleural effusion or pneumothorax. No acute osseous abnormalities. Right chest infusion port. RAD/Chest PA and Lateral IMPRESSION: Pulmonary findings as above. Reading Location: [place] [id number]
[2024-09-13 17:07] LABS: Hematocrit 38.6 % (37-47); Hemoglobin 13.0 g/dL (12.0-15.0); Immature Granulocytes Count 0.050 X10^3/uL (0.0-0.0); Mean Corp Hgb Conc 33.7 g/dL (32-36); Mean Corpuscular Volume 87.1 fL (81-99); Mean Platelet Vol. 10.3 fl (6.2-12.0); NRBC Flagged by Analyzer 0 % (0-5); Platelet Count 227 K/mm3 (150-450); RBC Distribution Width CV 13.5 % (11.6-14.6); RBC Distribution Width SD 42.7 fl (35.1-43.9); Red Blood Count 4.43 M/mm3 (4.2-5.4); White Blood Count 12.0 K/mm3 (4.4-11.0)
[2024-09-13] MEDS: fentaNYL 100 MCG/2 ML Ampul 50 MCG IV ×2 (17:25→21:02)
[2024-09-13 17:32] LABS: Lipase 28 U/L (13-75)
[2024-09-13 17:38] LABS: AST(SGOT) 24 U/L (<=31); Alanine Aminotransfer ALT/SGPT 9 U/L (<=34); Albumin, Serum 4.1 g/dL (3.4-4.8); Alkaline Phosphatase 85 U/L (35-104); Anion Gap 18 (5-15); BUN 79 mg/dL (4-19); BUN/Creat Ratio 32.4 RATIO (10-20); Bilirubin, Direct 0.16 mg/dL (0.00-0.30); Calcium,Total 9.7 mg/dL (7.6-11.0); Carbon Dioxide 32.1 mmol/L (21.0-32.0); Chloride 86 mmol/L (98-108); Estimated Creatinine Clearance 25.37 ml/min (50-250); Globulin 3.2 g/dL (2.2-4.2); Glucose 177 mg/dL (70-99); Potassium 2.4 mmol/L (3.3-5.1)
[2024-09-13] MEDS: 0.9% Normal Saline (1000mL) 1,000 ML 999 ML IV (17:45)
[2024-09-13 17:59] LABS: Troponin T High Sensitivity 94 ng/L (<=14)
--- NOTE | 2024-09-13 18:08 | CT_ITS ---
PROCEDURE: CT CHEST, ABD, PELVIS WO CONT 09/13/2024 REASON FOR EXAM: COUGH, CHEST PAIN, ABD PAIN, CONCERN FOR INFECTION TECHNIQUE: Chest, abdomen and pelvis CT without intravenous contrast. Coronal and Sagittal reconstruction series were provided. One or more dose reduction techniques were used (e.g., Automated exposure control, adjustment of the mA and/or kV according to patient size, use of iterative reconstruction technique. RADIATION DOSE SUMMARY: CTDlvol: 18.26+ 24.09 mGy DLP: 1842.89 mGycm COMPARISON: 05/04/2024. FINDINGS: CT CHEST: The peripheral soft tissues unremarkable. Degenerative changes of the spine. Normal caliber thoracic aorta with mild atherosclerosis. No pericardial effusion. The heart is normal in size. Trace right pleural effusion. CT ABDOMEN / PELVIS: Noncontrast technique limits evaluation of the abdominal and pelvic viscera. Tdjig-jjksqyd-icka-left flank calcifications which may represent injection granulomas. Degenerative changes of the spine. Grade 1 anterolisthesis of L4 on L5. Mild atherosclerosis of a normal caliber abdominal aorta. No suspicious lymphadenopathy. Normal liver. Surgically absent gallbladder. The pancreas, spleen, and adrenals are unremarkable. No nephrolithiasis or hydroureteronephrosis. Unremarkable urinary bladder. Surgically absent uterus. Scattered colonic diverticuli. Short segment wall thickening of the proximal sigmoid colon without significant adjacent inflammatory changes equivocal for acute uncomplicated diverticulitis. No free air or adjacent fluid collection to suggest rupture. CT/CT Chest, Abd, Pelvis WO Cont IMPRESSION: Short-segment sigmoid colon wall thickening in the region of diverticuli withou t significant surrounding inflammatory changes equivocal for acute uncomplicated sigmoid diverticulitis. Trace right pleural effusion. Reading Location: [place] [id number]
[2024-09-13 18:53] LABS: Magnesium 2.2 mg/dL (1.5-2.2)
[2024-09-13] MEDS: Potassium Chloride 10mEq/100mL 10 MEQ/100 ML IV.SOLN. 100 MEQ IV BOLUS ×2 (20:14→21:26)
[2024-09-13 20:36] LABS: Troponin T High Sens 2 HR 84 ng/L (<=14)
--- NOTE | 2024-09-13 20:42 | CASEMGMT ---
Care Management Face to Face with patient for initial transition planning/care coordination assessment in the ED.? This sql report writer introduced self and role at [facility]. Patient alert and oriented. Patient willing to participate in assessment and is able to answer all questions appropriately.? Care providers, pharmacy, and demographics verified. Admitting Diagnosis: Chest Pain Other diagnosis history: heart failure, CKD, diabetes, arthritis, anemia, COPD, Diverticulitis PCP: ?[facility] Specialists: Alba Garcia Bullard, D. Brown, Berry Preferred Pharmacy: [facility] Insurance: ?[facility] Prescription Benefit: yes Living Will/HPOA: ?not completed LNOK: sister, Elvira Landry Living Arrangements: ?[facility].? States she is mostly independent, does require some assistance with bathing Transportation: ?patient uses her sister or Provide a Ride DME: ?rolator, shower chair, cane, pulse ox, DM supplies, O2 from [facility] ? on 2 L at night HHC: ?uses [facility] for SN and PT, [facility] supplies aid 5 days a week thru [facility] Community Resources: ?Palliative Care, [facility].?? [facility].? Behavioral Health History: Schizoaffective, bipolar type, Major Depression, Insomnia, Anxiety Patient goals: Discharge plans uncertain at this time?? Patient denies any further needs or concerns at this time. Disposition Plan: admission to acute; RN CM/SW to follow for discharge planning needs that may arise. Cristina Turner, GRAPHICS COORDINATOR, CREEL HAND
--- NOTE | 2024-09-13 20:42 | CASEMGMT ---
Care Management Face to Face with patient for initial transition planning/care coordination assessment in the ED.? This movie writer introduced self and role at [facility]. Patient alert and oriented. Patient willing to participate in assessment and is able to answer all questions appropriately.? Care providers, pharmacy, and demographics verified. Admitting Diagnosis: Chest Pain Other diagnosis history: heart failure, CKD, diabetes, arthritis, anemia, COPD, Diverticulitis PCP: ?[facility] Specialists: Alba Garcia Bullard, D. Brown, Berry Preferred Pharmacy: [facility] Insurance: ?[facility] Prescription Benefit: yes Living Will/HPOA: ?not completed LNOK: sister, Elvira Landry Living Arrangements: ?[facility].? States she is mostly independent, does require some assistance with bathing Transportation: ?patient uses her sister or Provide a Ride DME: ?rolator, shower chair, cane, pulse ox, DM supplies, O2 from [facility] ? on 2 L at night HHC: ?uses [facility] for SN and PT, [facility] supplies aid 5 days a week thru [place] [facility] Resources: ?Palliative Care, [facility].?? [facility].? Behavioral Health History: Schizoaffective, bipolar type, Major Depression, Insomnia, Anxiety Patient goals: Discharge plans uncertain at this time?? Patient denies any further needs or concerns at this time. Disposition Plan: admission to acute; RN CM/SW to follow for discharge planning needs that may arise. Cristina Turner, PLASTER MOLD MAKER, DEVELOPMENT CHEMIST
[2024-09-13] MEDS: Potassium Chloride Oral Soln 20 MEQ/15 ML UDC 40 MEQ PO (20:55)
--- NOTE | 2024-09-13 21:04 | PCM.HP.STD ---
HPI - General General Date of Admission: 09/13/24 Date of Service: 09/13/24 Chief Complaint: Chest pain and abdominal pain HPI Narrative JADE SWANSON, is a 63 F who presented to [facility] ED on 09/13/2024 with chest pain and abdominal pain. Medical history is significant for bipolar/schizoaffective disorder, HFpEF, A-fib on Eliquis, nonobstructive CAD, COPD and hypothyroidism. Patient lives at home alone. Reports chest pressure intermittently for the past 2 to 3 days. Chest pressure happens at rest and nothing seems to make it better or worse. She has ongoing left lower quadrant abdominal pain that has been present for some time. In the ED patient was mildly hypotensive to the 90s over 50s but otherwise in normal sinus rhythm and stable on room air. Labs notable for WBC count 12, potassium 2.4, chloride 86, creatinine 2.43 (baseline around 1.5), BUN 79. Troponin trend 94 > 84 > 84. EKG showed normal sinus rhythm with no ST changes noted. CT chest abdomen pelvis showed no chest abnormalities, did show sigmoid colon wall thickening with surrounding inflammatory changes concerning for acute uncomplicated sigmoid diverticulitis. Given her labs and imaging findings, hospitalist was contacted for admission. I saw the patient at bedside in the ED. Patient was fatigued and somewhat shaky appearing but otherwise sitting up in bed and answering questions appropriately. She lives at home alone and does use a walker at baseline. States she has used a walker for many years. She does feel more fatigued and weak than her normal currently. She otherwise reports her chest pain is improved at this time. Continues to have mild left lower quadrant abdominal pain. No other new concerns at this time. Will be admitted for further management. [facility] Medical History Elevated brain natriuretic peptide (BNP) level Hypoxia Elevated troponin Heart failure Chronic kidney disease History of diabetes mellitus Chronic venous insufficiency History of atrial fibrillation Chronic anticoagulation Edema, peripheral Left shoulder pain Wears hearing aid Post-menopausal Depression Anxiety History of steroid therapy Walker as ambulation aid Kidney stones Arthritis Back pain History of IBS Former smoker COPD (chronic obstructive pulmonary disease) Shortness of breath on exertion Thyroid disease History of heart attack History of stress test History of echocardiogram Low platelet count Anemia History of ESBL E. coli infection Morbid obesity with BMI of 40.0-44.9, adult Congestive heart failure Peripheral edema History of CHF (congestive heart failure) History of atrial fibrillation History of hypertension Chest pain of uncertain etiology Bradycardia History of tobacco use History of diabetes mellitus, type II History of COPD Acute hypotension Pulmonary hypertension, secondary Abdominal ascites Diverticulitis large intestine w/o perforation or abscess w/bleeding Pericardial effusion with cardiac tamponade Chronic kidney disease History of cardiac arrest Chest pain Wears glasses Wears dentures Substance abuse Alcohol use Rash Gout High cholesterol PVD (peripheral vascular disease) Easy bruising Seizures Dietary restriction Gastric reflux Injury of back Vapes nicotine containing substance Fall History of pain when walking History of edema Insomnia Major depression On home oxygen therapy Emphysema, unspecified Neuropathy Cardiology follow-up encounter History of ulceration DKA (diabetic ketoacidosis) Cardiac arrest [facility] current use of anticoagulant Encounter for infusaport central venous catheter removal Lichen sclerosus Macular degeneration Essential hypertension Decreased left ventricular function Paroxysmal atrial fibrillation Diverticulosis Migraine Iron deficiency anemia COPD (chronic obstructive pulmonary disease) Port-A-Cath in place Acid reflux IBS (irritable bowel syndrome) CHF (congestive heart failure) Neuropathy Kidney failure Hypothyroid Schizoaffective disorder, bipolar type Emphysema lung Diabetes Heart attack Home Medications ?Medication ?Instructions ?Recorded ?Last Taken ?Type apixaban 5 mg tablet (Eliquis) 5 mg PO BID blood thinner 12/24/22 03/15/24 History atorvastatin 20 mg tablet 20 mg PO DAILY cholesterol 12/24/22 07/27/23 History gabapentin 300 mg capsule 300 mg PO TID nerve pain 12/25/22 07/27/23 History trazodone 100 mg tablet 100 mg PO QHS sleep 01/01/23 07/26/23 History aripiprazole 20 mg tablet 20 mg PO QHS mental health 03/09/23 03/18/24 History fluticasone propionate 50 1 spray intranasal DAILY PRN 04/27/23 Unknown History mcg/actuation nasal allergy symptoms spray,suspension divalproex 500 mg tablet,extended 500 mg PO QHS seizure 07/25/23 07/27/23 History release 24 hr levothyroxine 100 mcg tablet 100 mcg PO DAILY thyroid 07/25/23 07/27/23 History insulin glargine 100 unit/mL (3 20 unit subcut DAILY diabetes 10/13/23 Unknown History mL) subcutaneous pen (Lantus Solostar U-100 Insulin) clotrimazole-betamethasone 1 1 applic topical BID skin 12/24/23 Unknown History %-0.05 % topical cream irritation empagliflozin 25 mg tablet 25 mg PO QAM diabetes 12/24/23 03/17/24 History (Jardiance) epinephrine 0.3 mg/0.3 mL 0.3 mg IM ONCE allergic reaction 12/24/23 Unknown History injection, auto-injector (EpiPen 2-Wayne) meloxicam 7.5 mg tablet 7.5 mg PO QDAY PRN pain 12/24/23 Unknown History pantoprazole 40 mg tablet,delayed 40 mg PO QDAY acid reflux 12/24/23 Unknown History release nystatin 100,000 unit/gram topical 1 applic topical BID skin 01/06/24 Unknown History powder irritation docusate sodium 100 mg capsule 100 mg PO BID PRN constipation 03/07/24 Unknown History (Colace) tobramycin 0.3 %-dexamethasone 1 drp ophthalmic (eye) .Q4-6H 03/07/24 Unknown History 0.05 % eye drops,suspension (Tobradex ST) linaclotide 145 mcg capsule 145 mcg PO QAM bowels #60 caps 03/10/24 Unknown Rx (Linzess) methocarbamol 500 mg tablet 500 mg PO 4X/DAY PRN Muscle 03/16/24 Unknown Rx pain/spasm #40 tabs hydrocodone-acetaminophen 5-325mg 1 tab PO Q6H PRN pain 5 days #20 03/28/24 Unknown Rx 5mg-325mg tabs atropine 1 % eye drops 1 drp PO BID eye health 05/03/24 Unknown History peg 400-propylene glycol 0.4 %-0.3 1 drp EACH EYE DAILY PRN dry eye(s) 05/03/24 Unknown History % eye drops (Lubricant Eye (PG-PEG 400)) furosemide 40 mg tablet (Lasix) 40 mg PO .COMPLEX 05/29/24 Unknown History hydrocortisone 2.5 % topical cream 1 applic topical BID PRN 05/29/24 Unknown History sodium sul 1.479 gram-potas ch 1 tab PO PER PKG DIR 05/29/24 Unknown History 0.188 gram-magnes sul 0.225 gram tablet (Sutab) dulaglutide 0.75 mg/0.5 mL 0.75 mg subcut QWEEK 07/11/24 Unknown History subcutaneous pen injector (Trulicity) diclofenac 1.5 % solution and 2 ea topical 4X/DAY 07/18/24 Unknown History menthol 10 %-camphor 4 % gel topical kit metolazone 2.5 mg tablet 2.5 mg PO QDAY #90 tabs 08/21/24 Unknown Rx valbenazine 40 mg capsule 40 mg PO QDAY 08/21/24 Unknown History (Ingrezza) fluticasone fur. 100 mcg-umeclid 1 inh inhalation Q24H #60 ea 09/11/24 Unknown Rx 62.5 mcg-vilant 25 mcg inhalat.powder (Trelegy Ellipta) Allergy/AdvReac Type Severity Reaction Status Date / Time acetaminophen (From Tylenol) Allergy Mild hives Verified 09/13/24 23:26 aspirin Allergy Mild Hives Verified 09/13/24 23:26 erythromycin base Allergy Mild Hives Verified 09/13/24 23:26 Penicillins Allergy Mild Hives Verified 09/13/24 23:26 polyethylene glycol 3350 Allergy Mild Nausea/Vom/ Verified 09/13/24 23:26 (From Miralax) Diarrhea tramadol Allergy Mild Hives Verified 09/13/24 23:26 tomato Allergy Food Verified 09/13/24 23:26 Allergy Family History Mother Heart disease Hypertension Cancer Father Brain aneurysm age 40 CVA (cerebral vascular accident) Cancer Brother Colon cancer Surgical History History of lumbar laminectomy (~03/2024) Hx of surgical procedure History of bilateral knee replacement Hx of vein stripping Hx of toe surgery History of lithotripsy History of delivery History of bilateral cataract extraction History of cholecystectomy H/O: hysterectomy Social History household members: caregiver Smoking Status: Current every day smoker tobacco type: cigarettes and e-cigarettes Tobacco: How many years used: 18 Electronic Cigarette Use: with nicotine second hand exposure: No alcohol intake: never substance use type: does not use caffeine: Yes ROS Constitutional Constitutional: Reports fatigue and weakness; Denies chills or fever(s) Eyes Eyes: Denies change in vision Cardiovascular Cardiovascular: Denies chest pain, dyspnea on exertion, edema, lightheadedness or palpitations Respiratory/Chest Respiratory/Chest: Denies shortness of breath at rest Gastrointestinal Gastrointestinal: Reports abdominal pain Musculoskeletal Musculoskeletal: Denies arthralgias or myalgias Neurologic Neurologic: Denies dizziness, focal weakness or headache(s) Vital Signs Vital Signs Vital Signs: 09/13/24 16:23 09/13/24 16:29 09/13/24 17:00 Temperature 97.5 F L Temperature Source Oral Pulse Rate 44 L Respiratory Rate 20 H Respiratory Effort Normal Blood Pressure 95/44 L Blood Pressure Mean 61 Pulse Ox 97 Oxygen Delivery Method Room Air Room Air 09/13/24 17:21 09/13/24 18:00 09/13/24 18:58 Temperature 98.4 F 98.7 F 98.7 F Temperature Source Oral Oral Oral Pulse Rate 61 65 70 Respiratory Rate 19 H 12 14 Respiratory Effort Blood Pressure 86/63 L 120/57 L 114/65 Blood Pressure Mean 70 78 81 Pulse Ox 94 96 100 Oxygen Delivery Method Room Air Room Air Room Air 09/13/24 20:00 09/13/24 20:24 Temperature 98.2 F 98.1 F Temperature Source Oral Pulse Rate 62 67 Respiratory Rate 20 H 19 H Respiratory Effort Blood Pressure 106/52 L 109/58 L Blood Pressure Mean 70 75 Pulse Ox 97 97 Oxygen Delivery Method Room Air Weight Weight: 93.2 kg Body Mass Index (BMI) 36.3 Physical Exam Const alert, oriented x3 and no apparent distress Constitutional Narrative: Upper middle-aged female, class II obesity, mildly fatigued appearing, anxious appearing, otherwise sitting back in bed and answering questions with short appropriate responses. General Appearance: cooperative and comfortable HEENT normocephalic, head/scalp atraumatic, hearing grossly normal bilaterally, nasal mucous membranes and turbinates normal and moist oral mucous membranes Eyes PERRL, EOMs intact bilaterally and conjunctivae normal Neck full ROM Chest inspection of chest normal Resp normal respiratory effort, normal air movement, no use of accessory muscles and clear to auscultation bilaterally Cardio regular rate, regular rhythm, no murmurs and peripheral pulses 2+ throughout GI GI Narrative: Mild tenderness to palpation in left lower quadrant. Abdomen otherwise soft and nondistended. Back/Spine normal ROM Extremity normal to inspection, full ROM and no pedal edema Skin no rashes or lesions noted Psych mental status grossly normal Mood & Affect: anxious Results Lab / Micro Data 09/14/24 05:16 09/13/24 16:56 Labs: Laboratory Results - last 24 hr 09/13/24 16:56: WBC 12.0 H, RBC 4.43, Hgb 13.0, Hct 38.6, MCV 87.1, MCH 29.3, MCHC 33.7, RDW Std Deviation 42.7, RDW Coeff of Penny 13.5, Plt Count 227, MPV 10.3, Immature Gran % (Auto) 0.400, Neut % (Auto) 78.0 H, Lymph % (Auto) 13.3 L, [place] % (Auto) 6.1, Eos % (Auto) 1.5, Baso % (Auto) 0.7, Absolute Neuts (auto) 9.4 H, Absolute Lymphs (auto) 1.60, Nucleated RBC % 0, Sodium 136, Potassium 2.4 L*, Chloride 86 L, Carbon Dioxide 32.1 H, Anion Gap 18 H, BUN 79 H, Creatinine 2.43 H, Estim Creat Clear Calc 25.37 L, Est GFR (MDRD) Non-Af 22 L, BUN/Creatinine Ratio 32.4 H, Glucose 177 H, Calcium 9.7, Total Bilirubin 0.30, Direct Bilirubin 0.16, AST 24, ALT 9, Alkaline Phosphatase 85, Troponin T High Sens 94 H* D, Total Protein 7.3, Albumin 4.1, Globulin 3.2, Lipase 28 09/13/24 17:51: Lactic Acid 1.5, Magnesium 2.2, TSH 1.280 09/13/24 19:00: Troponin T Hi Sens 2 Hr 84 H* Imaging Radiology Impression Chest X-Ray 09/13/24 17:00 IMPRESSION: Pulmonary findings as above. Reading Location: [id number] Chest/Abdomen/Pelvis CT 09/13/24 18:08 IMPRESSION: Short-segment sigmoid colon wall thickening in the region of diverticuli without significant surrounding inflammatory changes equivocal for acute uncomplicated sigmoid diverticulitis. Trace right pleural effusion. Reading Location: [id number] Assessment & Plan Assessment/Plan (1) Diverticulitis: (2) Acute hypokalemia: PLAN: Plan Patient is a 63-year-old female who presented [facility] ED on 09/13/2024 with chest pain and abdominal pain. 1. Acute uncomplicated sigmoid diverticulitis ? Admit under inpatient status to PCU. CT abdomen pelvis on admit showed findings consistent with acute uncomplicated sigmoid diverticulitis. Will treat with IV ciprofloxacin and Flagyl for now. Monitor. 2. CHELSEY on CKD stage IIIb ? Creatinine 2.43, BUN 79 on admit. Baseline creatinine around 1.5. Suspect prerenal etiology in setting of poor p.o. intake and GI losses. Given IV fluid resuscitation on admit. Follow-up a.m. BMP and monitor urine output. 3. Chest pain with elevated troponins ? Troponin trend 94 > 84 > 84. EKG with normal sinus rhythm, no ST changes. CTA chest with no PE, no other concerning findings. Low concern for ACS. Continue home medications as below. No further workup needed. 4. Hypokalemia ? Potassium 2.4 on admit. Mag and Phos normal. Suspect secondary to GI losses. Replete as needed. 5. Acute on chronic debility ? PT/OT/case management consulted. Lives at home alone, uses walker at baseline. Feels weaker than her normal currently. Appreciate therapy recommendations. Chronic medical conditions: ? Class II obesity: BMI 37 on admit. Complicates hospital course, care and prognosis. ? Paroxysmal A-fib/flutter, chronic HFpEF, hypertension, hyperlipidemia: In normal sinus rhythm on admit, borderline hypotensive to 90s to 100s systolic. Last echo in 04/2024 showed EF 65%. Continue home Eliquis and statin. Holding home Lasix and metolazone. ? Type 2 diabetes mellitus with neuropathy: Continue Lantus at reduced dose of 15 units daily with sliding scale insulin with meals, adjust as needed. Continue home gabapentin. ? Hypothyroidism: Continue home Synthroid. ? GERD: Continue PPI. ? Mood disorder: Continue home medications. ? COPD: Continue home inhalers. ? Seizure disorder: Continue home divalproex. DVT prophylaxis: Not indicated, on Eliquis CODE STATUS: DNR CCA, DNI Expected disposition: TBD Total clinical time spent by myself addressing the patient's medical issues, reviewing all the data, and collaborating with patient's care team: 75 minutes. Charges/Coding Visit Charges Inpatient E&M: 32415 Init Hosp L3
[2024-09-13] MEDS: metroNIDAZOLE 500 MG/100 ML BAG 100 MG IV (21:30)
[2024-09-13] MEDS: 0.9% Normal Saline (1000mL) 1,000 ML 150 ML IV (22:06)
[2024-09-13 22:11] LABS: Troponin T High Sens 4 HR 84 ng/L (<=14)
[2024-09-13] MEDS: Lactated Ringers 1,000 ML 125 ML IV (23:16)
[2024-09-13] MEDS: APIXABAN 5 MG TABLET PO (23:24)
[2024-09-13] MEDS: Divalproex (ER) 500 MG Tablet PO (23:24)
[2024-09-13] MEDS: HYDROcodone Bitartrate/Apap 5/325 Tablet PO (23:31)
[2024-09-14 04:18] VITALS: BP 103/51; PULSE 53; RESP 16; TEMP 36.4; O2SAT 97
[2024-09-14 06:22] LABS: Hematocrit 34.8 % (37-47); Hemoglobin 11.4 g/dL (12.0-15.0); Mean Corp Hgb Conc 32.8 g/dL (32-36); Mean Corpuscular Volume 89.0 fL (81-99); Mean Platelet Vol. 10.4 fl (6.2-12.0); Platelet Count 173 K/mm3 (150-450); RBC Distribution Width CV 13.6 % (11.6-14.6); RBC Distribution Width SD 44.0 fl (35.1-43.9); Red Blood Count 3.91 M/mm3 (4.2-5.4); White Blood Count 9.0 K/mm3 (4.4-11.0)
[2024-09-14] MEDS: Budesonide Respules 0.5 MG/2 ML AMPUL.NEB. INHALATION (06:35)
[2024-09-14 06:37] VITALS: PULSE 59; RESP 18; O2SAT 94
[2024-09-14] MEDS: metroNIDAZOLE 500 MG/100 ML BAG 100 MG IV ×3 (06:47→21:26)
[2024-09-14 07:36] LABS: Anion Gap 15 (5-15); BUN 70 mg/dL (4-19); BUN/Creat Ratio 37.2 RATIO (10-20); Calcium,Total 8.9 mg/dL (7.6-11.0); Carbon Dioxide 31.2 mmol/L (21.0-32.0); Chloride 93 mmol/L (98-108); Estimated Creatinine Clearance 33.25 ml/min (50-250); Glucose 103 mg/dL (70-99); Potassium 2.4 mmol/L (3.3-5.1)
[2024-09-14 10:00] VITALS: BP 136/63; PULSE 55; RESP 16; TEMP 36.6; O2SAT 97
[2024-09-14] MEDS: APIXABAN 5 MG TABLET PO ×2 (10:42→21:28)
[2024-09-14] MEDS: Potassium Chloride 10mEq/100mL 10 MEQ/100 ML IV.SOLN. 100 MEQ IV BOLUS ×4 (10:42→17:17)
[2024-09-14] MEDS: Insulin Glargine-YFGN 100 UNIT/ML Pen 15 UNIT SC (10:42)
[2024-09-14 13:11] VITALS: PULSE 62; RESP 16
[2024-09-14 14:50] VITALS: BP 141/69; PULSE 66; RESP 18; TEMP 36.7; O2SAT 99
--- NOTE | 2024-09-14 16:23 | CASEMGMT ---
Social Work - [facility] Pt is active with [facility]. Betty Camargo is pt's Poultry Hatchery Manager. Pt has a medical alert and receives 14 global meals per week. Pt receives 25 hours a week of home health aids from [facility]. SW notified coverage team of pt admission and will fax dc orders at time of discharge. CLAUDIO Recinos
--- NOTE | 2024-09-14 16:23 | CASEMGMT ---
Social Work - [facility] Pt is active with [facility]. Betty Camargo is pt's Winterizer. Pt has a medical alert and receives 14 global meals per week. Pt receives 25 hours a week of home health aids from [facility]. SW notified coverage team of pt admission and will fax dc orders at time of discharge. CLAUDIO Recinos
--- NOTE | 2024-09-14 16:45 | CASEMGMT ---
Social Work SW met with pt and obtained next of kin information. Pt provided contact information for her sister Elvira Landry and demographic sheet updated. Pt confirms that she is active with [facility] for [facility] and PT and active with palliative medicine. SW notified [facility] and [facility] of pt's admission. Pt plans to return to her home at [facility] at discharge. Therapy to evaluate pt for functional safety to return home. CLAUDIO Recinos
--- NOTE | 2024-09-14 16:45 | CASEMGMT ---
Social Work SW met with pt and obtained next of kin information. Pt provided contact information for her sister Elvira Landry and demographic sheet updated. Pt confirms that she is active with [facility] for [facility] and PT and active with palliative medicine. SW notified [facility] and [facility] of pt's admission. Pt plans to return to her home at [facility] at discharge. Therapy to evaluate pt for functional safety to return home. CLAUDIO Recinos
--- NOTE | 2024-09-14 16:54 | PCM.PN.HOSP ---
Reason for Visit Reason for Visit: Diagnoses Hypokalemia (09/13/24) Diverticulitis of intestine, part unspecified, without perforation or abscess without bleeding (09/13/24) Subjective Subjective Patient was seen and examined today, she requested a stool softener. I have decided since patient has minimal abdominal discomfort to place her on a low fiber diet. Patient remains on IV antibiotics at this time for her acute diverticulitis. Objective Data Objective Data Vital Signs: Vital Signs Temp Pulse Resp BP Pulse Ox O2 Del Method O2 Flow Rate 98.0 F 66 18 141/69 H 99 Nasal Cannula 2 09/14/24 14:50 09/14/24 14:50 09/14/24 14:50 09/14/24 14:50 09/14/24 14:50 09/14/24 14:50 09/14/24 10:00 Oxygen Flow Rate (L/min) 2 Oxygen Delivery Method Nasal Cannula Weight: 96.5 kg Body Mass Index (BMI) 37.7 Intake & Output: Intake and Output for Last 24 Hours 09/12/24 09/13/24 09/14/24 23:59 23:59 23:59 Intake Total 1687.5 / 1807.5 2119 Balance 1687.5 / 1807.5 2119 Lab / Micro Data 09/14/24 05:16 09/14/24 05:16 Labs: Laboratory Results - last 24 hr 09/13/24 16:56: WBC 12.0 H, RBC 4.43, Hgb 13.0, Hct 38.6, MCV 87.1, MCH 29.3, MCHC 33.7, RDW Std Deviation 42.7, RDW Coeff of Penny 13.5, Plt Count 227, MPV 10.3, Immature Gran % (Auto) 0.400, Neut % (Auto) 78.0 H, Lymph % (Auto) 13.3 L, [place] % (Auto) 6.1, Eos % (Auto) 1.5, Baso % (Auto) 0.7, Absolute Neuts (auto) 9.4 H, Absolute Lymphs (auto) 1.60, Nucleated RBC % 0, Sodium 136, Potassium 2.4 L*, Chloride 86 L, Carbon Dioxide 32.1 H, Anion Gap 18 H, BUN 79 H, Creatinine 2.43 H, Estim Creat Clear Calc 25.37 L, Est GFR (MDRD) Non-Af 22 L, BUN/Creatinine Ratio 32.4 H, Glucose 177 H, Calcium 9.7, Total Bilirubin 0.30, Direct Bilirubin 0.16, AST 24, ALT 9, Alkaline Phosphatase 85, Troponin T High Sens 94 H* D, Total Protein 7.3, Albumin 4.1, Globulin 3.2, Lipase 28 09/13/24 17:51: Lactic Acid 1.5, Phosphorus 4.2, Magnesium 2.2, TSH 1.280 09/13/24 19:00: Troponin T Hi Sens 2 Hr 84 H* 09/13/24 20:55: Troponin T Hi Sens 4Hr 84 H* 09/13/24 22:47: POC Glucose 85 09/14/24 05:16: WBC 9.0, RBC 3.91 L, Hgb 11.4 L, Hct 34.8 L, MCV 89.0, MCH 29.2, MCHC 32.8, RDW Std Deviation 44.0 H, RDW Coeff of Penny 13.6, Plt Count 173, MPV 10.4, Sodium 139, Potassium 2.4 L*, Chloride 93 L, Carbon Dioxide 31.2, Anion Gap 15, BUN 70 H, Creatinine 1.89 H, Estim Creat Clear Calc 33.25 L, Est GFR (MDRD) Non-Af 29 L, BUN/Creatinine Ratio 37.2 H, Glucose 103 H, Calcium 8.9 09/14/24 06:45: POC Glucose 119 H 09/14/24 11:49: POC Glucose 159 H 09/14/24 16:21: POC Glucose 141 H Radiography Diagnostic Testing: Radiology Impression Chest X-Ray 09/13/24 17:00 IMPRESSION: Pulmonary findings as above. Reading Location: [id number] Chest/Abdomen/Pelvis CT 09/13/24 18:08 IMPRESSION: Short-segment sigmoid colon wall thickening in the region of diverticuli without significant surrounding inflammatory changes equivocal for acute uncomplicated sigmoid diverticulitis. Trace right pleural effusion. Reading Location: [id number] Rhythm Strip Rhythm Strip: Sinus Rhythm Rate: 62 Ectopy: None Physical Exam Const alert and no apparent distress Constitutional Narrative: Patient appears older than her stated age General Appearance: cooperative, well kempt and well developed Orientation / Consciousness: awake, oriented to person and oriented to place HEENT normocephalic, head/scalp atraumatic and moist oral mucous membranes Eyes PERRL, EOMs intact bilaterally and conjunctivae normal Neck supple, no JVD, thyroid normal and no carotid bruits General: trachea midline Resp normal respiratory effort, no retractions, no use of accessory muscles and clear to auscultation bilaterally Auscultation: Negative for rales, rhonchi or wheezes Cardio regular rate, regular rhythm, S1 normal heart sound, S2 normal heart sound, no murmurs, no rub and no gallops GI normal to inspection, nondistended, normoactive bowel sounds, soft to palpation and non-distended GI Narrative: There is mild abdominal tenderness to palpation over the mid abdominal quadrants and left lower quadrant Extremity no clubbing, cyanosis or edema Skin no rashes or lesions noted General Skin Exam: no breakdown Neuro oriented x3, CN's II-XII intact bilaterally, no focal motor deficits and no sensory deficits noted Sensorium / Orientation: awake and alert Speech: speech normal Psych affect normal Assessment & Plan Assessment/Plan (1) Diverticulitis: PLAN: Plan 1. Acute diverticulitis in the sigmoid colon-continue IV Flagyl and Cipro, advance diet as tolerated #2 acute kidney injury on a backdrop of chronic kidney disease stage IIIb-patient received IV fluids, I will recheck a BMP tomorrow #3 hypokalemia-patient was given IV potassium supplementation, BMP will be repeated tomorrow #4 type 2 diabetes-patient's blood sugars will be monitored, sliding scale insulin will be given if needed, patient is on basal insulin #5 elevated troponin-I do not feel the patient has had a non-STEMI or demand ischemia-etiology of the elevated troponin is unknown #6 acute on chronic debility-PT and OT will see the patient, patient lives alone #7 bipolar disorder-complicates care, management, recovery, and prognosis, patient will remain on her home psychiatric medication #8 hypothyroidism-continue home Synthroid #9 chronic obstructive pulmonary disease-patient will receive aerosol treatment #10 long-term use of anticoagulant due to paroxysmal [id number] will remain on her anticoagulant #11 paroxysmal [id number] does not appear to be on rate limiting medication, she is on anticoagulation, patient will be monitored Total clinical time spent by myself addressing the patient's medical issues, reviewing all of her data, and collaborating with the patient's care team: 50 minutes Charges/Coding Visit Charges Inpatient E&M: 03868 Subs Hosp L3
[2024-09-14 21:09] VITALS: BP 132/88; PULSE 71; RESP 18; TEMP 36.1; O2SAT 95
[2024-09-14] MEDS: Divalproex (ER) 500 MG Tablet PO (21:28)
[2024-09-15] VITALS (9 sets, daily range): BP systolic 132–173; BP diastolic 55–98; PULSE 59–70; RESP 16–20; TEMP 36.6–36.8; O2SAT 95–100
[2024-09-15] MEDS: metroNIDAZOLE 500 MG/100 ML BAG 100 MG IV ×3 (06:53→21:06)
[2024-09-15 07:15] LABS: Anion Gap 10 (5-15); BUN 50 mg/dL (4-19); BUN/Creat Ratio 32.4 RATIO (10-20); Calcium,Total 9.5 mg/dL (7.6-11.0); Carbon Dioxide 33.4 mmol/L (21.0-32.0); Chloride 97 mmol/L (98-108); Estimated Creatinine Clearance 40.81 ml/min (50-250); Glucose 156 mg/dL (70-99); Potassium 3.0 mmol/L (3.3-5.1)
[2024-09-15] MEDS: Budesonide Respules 0.5 MG/2 ML AMPUL.NEB. INHALATION ×2 (07:29→19:19)
[2024-09-15] MEDS: Insulin Glargine-YFGN 100 UNIT/ML Pen 15 UNIT SC (11:12)
[2024-09-15] MEDS: APIXABAN 5 MG TABLET PO ×2 (11:12→21:04)
--- NOTE | 2024-09-15 16:20 | PN.HOSP_ITS ---
Reason for Visit Reason for Visit: Diagnoses Hypokalemia (09/13/24) Diverticulitis of intestine, part unspecified, without perforation or abscess without bleeding (09/13/24) Subjective Subjective Patient was seen and examined today, she has had a bowel movement since yesterday, she is afebrile, potassium today was 3.0. I have written for oral potassium supplementation and will recheck her BMP in the morning. Objective Data Objective Data Vital Signs: Vital Signs Temp Pulse Resp BP Pulse Ox O2 Del Method O2 Flow Rate 98 F 65 18 145/55 H 95 Nasal Cannula 2 09/15/24 15:03 09/15/24 15:03 09/15/24 15:03 09/15/24 15:03 09/15/24 15:03 09/15/24 15:03 09/15/24 15:03 Oxygen Flow Rate (L/min) 2 Oxygen Delivery Method Nasal Cannula Weight: 96.5 kg Body Mass Index (BMI) 37.7 Intake & Output: Intake and Output for Last 24 Hours 09/13/24 09/14/24 09/15/24 23:59 23:59 23:59 Intake Total 1687.5 / 1807.5 3020 / 3020 300 / 300 Balance 1687.5 / 1807.5 3020 / 3020 300 / 300 Lab / Micro Data 09/14/24 05:16 09/16/24 06:18 Labs: Laboratory Results - last 24 hr 09/14/24 16:21: POC Glucose 141 H 09/14/24 21:26: POC Glucose 185 H 09/15/24 06:12: Sodium 141, Potassium 3.0 L, Chloride 97 L, Carbon Dioxide 33.4 H, Anion Gap 10, BUN 50 H, Creatinine 1.54 H, Estim Creat Clear Calc 40.81 L, E st GFR (MDRD) Non-Af 37 L, BUN/Creatinine Ratio 32.4 H, Glucose 156 H, Calcium 9.5 09/15/24 06:57: POC Glucose 155 H 09/15/24 11:19: POC Glucose 165 H Rhythm Strip Rhythm Strip: Sinus Rhythm Rate: 62 Ectopy: None Physical Exam Narrative alert and no apparent distress Constitutional Narrative: Patient appears older than her stated age General Appearance: cooperative, well kempt and well developed Orientation / Consciousness: awake, oriented to person and oriented to place HEENT normocephalic, head/scalp atraumatic and moist oral mucous membranes Eyes PERRL, EOMs intact bilaterally and conjunctivae normal Neck supple, no JVD, thyroid normal and no carotid bruits General: trachea midline Resp normal respiratory effort, no retractions, no use of accessory muscles and clear to auscultation bilaterally Auscultation: Negative for rales, rhonchi or wheezes Cardio regular rate, regular rhythm, S1 normal heart sound, S2 normal heart sound, no murmurs, no rub and no gallops GI normal to inspection, nondistended, normoactive bowel sounds, soft to palpation and non-distended GI Narrative: There is mild abdominal tenderness to palpation over the mid abdominal quadrants and left lower quadrant Extremity no clubbing, cyanosis or edema Skin no rashes or lesions noted General Skin Exam: no breakdown Neuro oriented x3, CN's II-XII intact bilaterally, no focal motor deficits and no sensory deficits noted Sensorium / Orientation: awake and alert Speech: speech normal Psych affect normal Assessment & Plan Assessment/Plan (1) Diverticulitis: PLAN: Plan 1. Acute diverticulitis in the sigmoid colon-continue IV Flagyl and Cipro, advance diet as tolerated #2 acute kidney injury on a backdrop of chronic kidney disease stage IIIb- patient received IV fluids, I will recheck a BMP tomorrow #3 hypokalemia-patient was given IV potassium supplementation, BMP will be repeated tomorrow #4 type 2 diabetes-patient's blood sugars will be monitored, sliding scale insulin will be given if needed, patient is on basal insulin #5 elevated troponin-I do not feel the patient has had a non-STEMI or demand ischemia-etiology of the elevated troponin is unknown #6 acute on chronic debility-PT and OT will see the patient, patient lives alone #7 bipolar disorder-complicates care, management, recovery, and prognosis, patient will remain on her home psychiatric medication #8 hypothyroidism-continue home Synthroid #9 chronic obstructive pulmonary disease-patient will receive aerosol treatment #10 long-term use of anticoagulant due to paroxysmal [id number] will remain on her anticoagulant #11 paroxysmal [id number] does not appear to be on rate limiting medication, she is on anticoagulation, patient will be monitored Total clinical time spent by myself addressing the patient's medical issues, reviewing all of her data, and collaborating with the patient's care team: 35 minutes Charges/Coding Visit Charges Inpatient E&M: 76704 Subs Hosp L2
--- NOTE | 2024-09-15 17:31 | CASEMGMT ---
Social Work SW met with pt to discuss discharge plan. Pt worked with therapy and is cleared to return to [facility]. ELIZABETH spoke with Lory at [facility] who confirms pt is active with [facility] for PT/SN and they will resume care at discharge. Pt is agreeable to discharge plan. Green Sheet on chart to facilitate weekend discharge. CLAUDIO Crenshaw
--- NOTE | 2024-09-15 17:31 | CASEMGMT ---
Social Work SW met with pt to discuss discharge plan. Pt worked with therapy and is cleared to return to [facility]. ELIZABETH spoke with Lory at [facility] who confirms pt is active with [facility] for PT/SN and they will resume care at discharge. Pt is agreeable to discharge plan. Green Sheet on chart to facilitate weekend discharge. CLAUDIO Crenshaw
[2024-09-15] MEDS: Potassium Chloride Oral Tablet 20 MEQ 40 MEQ PO (18:09)
[2024-09-15] MEDS: 0.9% Saline Lock 10 ML Syringe IV ×2 (20:40→21:06)
[2024-09-15] MEDS: Divalproex (ER) 500 MG Tablet PO (21:04)
[2024-09-16 03:20] VITALS: BP 143/70; PULSE 65; RESP 19; TEMP 36.4; O2SAT 95
[2024-09-16] MEDS: HYDROcodone Bitartrate/Apap 5/325 Tablet PO (03:30)
--- NOTE | 2024-09-16 03:35 | NURSING ---
Pt requested pain medication. This RN pulled a Mobile from the med room. Pt was told that the medication was on top of a spoon full of pudding. This RN then gave the patient the spoon full of pudding with the medication on top of it. Pt took the medication and afterward started to this RN that the pill wasn't in there and repeated the statement multiple times. This RN assured patient that they did already take the medication.
[2024-09-16 06:20] VITALS: BP 130/64; PULSE 68; RESP 18; TEMP 36.6; O2SAT 95
[2024-09-16] MEDS: 0.9% Saline Lock 10 ML Syringe IV (06:32)
[2024-09-16] MEDS: metroNIDAZOLE 500 MG/100 ML BAG 100 MG IV (06:33)
[2024-09-16 06:57] LABS: Anion Gap 12 (5-15); BUN 41 mg/dL (4-19); BUN/Creat Ratio 27.6 RATIO (10-20); Calcium,Total 9.6 mg/dL (7.6-11.0); Carbon Dioxide 29.2 mmol/L (21.0-32.0); Chloride 99 mmol/L (98-108); Estimated Creatinine Clearance 42.46 ml/min (50-250); Glucose 206 mg/dL (70-99); Potassium 3.6 mmol/L (3.3-5.1)
[2024-09-16 08:57] VITALS: BP 127/59; PULSE 60; RESP 18; TEMP 36.6; O2SAT 98
[2024-09-16] MEDS: Insulin Glargine-YFGN 100 UNIT/ML Pen 15 UNIT SC (09:01)
[2024-09-16] MEDS: APIXABAN 5 MG TABLET PO (09:04)
--- NOTE | 2024-09-16 10:19 | PCM.DC ---
Discharge Instructions DC O2, CPAP, BIPAP needs Home O2 Discharge instructions: Yes Type of respiratory needs?: Oxygen Oxygen frequency: With Sleeping Oxygen liters per minute when sleepin L Dressing / Incision Discharge Activity: Return to Normal Activity Weight Bearing Status: Full weight bearing Follow Up Care Test Results: Test results from this visit will be discussed in further detail at your follow-up appointment, if applicable. Discharge Plan Admission Admit Date/Time: 09/13/24 21:09 Primary Reason for Your Visit: Diverticulitis Attending Provider: Eric Treadwell Primary Care Provider: Eric Marion [facility] Consulting Providers: Dipesh Del Cid Discharge Orders/Prescriptions Prescriptions: New ciprofloxacin HCl [Cipro] 500 mg tablet 500 mg PO BID Qty: 10 0RF metronidazole 500 mg tablet 500 mg PO TID Qty: 15 0RF Continued atorvastatin 20 mg tablet 20 mg PO DAILY Patient Comments: 5 PM Eliquis 5 mg tablet 5 mg PO BID Patient Comments: STOP 2-3 DAYS PRIOR TO SURGERY gabapentin 300 mg capsule 300 mg PO TID fluticasone propionate 50 mcg/actuation spray,suspension 1 spray intranasal DAILY PRN (Reason: allergy symptoms) Patient Comments: instill 2 sprays in each nostril daily nystatin 100,000 unit/gram powder 1 applic topical BID clotrimazole-betamethasone 1-0.05 % cream 1 applic topical BID epinephrine [EpiPen 2-Wayne] 0.3 mg/0.3 mL auto-injector 0.3 mg IM ONCE Rx Instructions: as a single dose; may repeat once meloxicam 7.5 mg tablet 7.5 mg PO QDAY PRN (Reason: pain) Patient Comments: STOP 5-7 DAYS PRIOR TO OR Jardiance 25 mg tablet 25 mg PO QAM Patient Comments: PCP WANTS PT TO STOP 3-4 DAYS PRIOR TO SURGERY pantoprazole 40 mg tablet,delayed release (DR/EC) 40 mg PO QDAY Linzess 145 mcg capsule 145 mcg PO QAM Qty: 60 2RF pdtcgjqsiv-qfhljjp-vuezdep 1.5-10-4 % kit 2 ea topical 4X/DAY hydrocortisone 2.5 % cream 1 applic topical BID PRN Sutab 1.479-0.188- 0.225 gram tablet 1 tab PO PER PKG DIR Rx Instructions: For colonoscopy Trulicity 0.75 mg/0.5 mL pen injector 0.75 mg subcut QWEEK trazodone 100 mg tablet 100 mg PO QHS Patient Comments: TAKE 1 TABLET BY MOUTH EVERY DAY AT NIGHT aripiprazole 20 mg tablet 20 mg PO QHS Patient Comments: TAKE ONE TABLET BY MOUTH DAILY AT 9AM divalproex 500 mg tablet extended release 24 hr 500 mg PO QHS levothyroxine 100 mcg tablet 100 mcg PO DAILY insulin glargine [Lantus Solostar U-100 Insulin] 100 unit/mL (3 mL) insulin pen 20 unit subcut DAILY Tobradex ST 0.3-0.05 % drops,suspension 1 drp ophthalmic (eye) .Q4-6H docusate sodium [Colace] 100 mg capsule 100 mg PO BID PRN (Reason: constipation) methocarbamol 500 mg tablet 500 mg PO 4X/DAY PRN (Reason: Muscle pain/spasm) Qty: 40 0RF atropine 1 % drops 1 drp PO BID Rx Instructions: administer to back of throat/tongue and swallow Lubricant Eye (PG-PEG 400) 0.4-0.3 % drops 1 drp EACH EYE DAILY PRN (Reason: dry eye(s)) hydrocodone-acetaminophen 5-325 mg tablet 1 tab PO Q6H PRN (Reason: pain) 5 Days Qty: 20 0RF Trelegy Ellipta 100-62.5-25 mcg blister with device 1 inh inhalation Q24H Qty: 60 11RF Changed furosemide [Lasix] 40 mg tablet 40 mg PO 1XD Qty: 1 0RF Discontinued Ingrezza 40 mg capsule 40 mg PO QDAY metolazone 2.5 mg tablet 2.5 mg PO QDAY Qty: 90 3RF Rx Instructions: take 2.5mg (1 tablet) with AM Furosemide Referrals / Follow Up: Eric Marion [facility], RESIDENCE COUNSELOR-C [Primary Care Provider] - Within 2 Weeks Disposition Disposition (needs filled in before D/C Order can be placed): Home, Self Care
--- NOTE | 2024-09-16 10:19 | PCM.DC ---
Discharge Instructions DC O2, CPAP, BIPAP needs Home O2 Discharge instructions: Yes Type of respiratory needs?: Oxygen Oxygen frequency: With Sleeping Oxygen liters per minute when sleepin L Dressing / Incision Discharge Activity: Return to Normal Activity Weight Bearing Status: Full weight bearing Follow Up Care Test Results: Test results from this visit will be discussed in further detail at your follow-up appointment, if applicable. Discharge Plan Admission Admit Date/Time: 09/13/24 21:09 Primary Reason for Your Visit: Diverticulitis Attending Provider: Eric Treadwell Primary Care Provider: Eric Marion [facility] Consulting Providers: Dipesh Del Cid Discharge Orders/Prescriptions Prescriptions: New ciprofloxacin HCl [Cipro] 500 mg tablet 500 mg PO BID Qty: 10 0RF metronidazole 500 mg tablet 500 mg PO TID Qty: 15 0RF Continued atorvastatin 20 mg tablet 20 mg PO DAILY Patient Comments: 5 PM Eliquis 5 mg tablet 5 mg PO BID Patient Comments: STOP 2-3 DAYS PRIOR TO SURGERY gabapentin 300 mg capsule 300 mg PO TID fluticasone propionate 50 mcg/actuation spray,suspension 1 spray intranasal DAILY PRN (Reason: allergy symptoms) Patient Comments: instill 2 sprays in each nostril daily nystatin 100,000 unit/gram powder 1 applic topical BID clotrimazole-betamethasone 1-0.05 % cream 1 applic topical BID epinephrine [EpiPen 2-Wayne] 0.3 mg/0.3 mL auto-injector 0.3 mg IM ONCE Rx Instructions: as a single dose; may repeat once meloxicam 7.5 mg tablet 7.5 mg PO QDAY PRN (Reason: pain) Patient Comments: STOP 5-7 DAYS PRIOR TO OR Jardiance 25 mg tablet 25 mg PO QAM Patient Comments: PCP WANTS PT TO STOP 3-4 DAYS PRIOR TO SURGERY pantoprazole 40 mg tablet,delayed release (DR/EC) 40 mg PO QDAY Linzess 145 mcg capsule 145 mcg PO QAM Qty: 60 2RF yasyzzzfzc-lssiqfe-sqdehqa 1.5-10-4 % kit 2 ea topical 4X/DAY hydrocortisone 2.5 % cream 1 applic topical BID PRN Sutab 1.479-0.188- 0.225 gram tablet 1 tab PO PER PKG DIR Rx Instructions: For colonoscopy Trulicity 0.75 mg/0.5 mL pen injector 0.75 mg subcut QWEEK trazodone 100 mg tablet 100 mg PO QHS Patient Comments: TAKE 1 TABLET BY MOUTH EVERY DAY AT NIGHT aripiprazole 20 mg tablet 20 mg PO QHS Patient Comments: TAKE ONE TABLET BY MOUTH DAILY AT 9AM divalproex 500 mg tablet extended release 24 hr 500 mg PO QHS levothyroxine 100 mcg tablet 100 mcg PO DAILY insulin glargine [Lantus Solostar U-100 Insulin] 100 unit/mL (3 mL) insulin pen 20 unit subcut DAILY Tobradex ST 0.3-0.05 % drops,suspension 1 drp ophthalmic (eye) .Q4-6H docusate sodium [Colace] 100 mg capsule 100 mg PO BID PRN (Reason: constipation) methocarbamol 500 mg tablet 500 mg PO 4X/DAY PRN (Reason: Muscle pain/spasm) Qty: 40 0RF atropine 1 % drops 1 drp PO BID Rx Instructions: administer to back of throat/tongue and swallow Lubricant Eye (PG-PEG 400) 0.4-0.3 % drops 1 drp EACH EYE DAILY PRN (Reason: dry eye(s)) hydrocodone-acetaminophen 5-325 mg tablet 1 tab PO Q6H PRN (Reason: pain) 5 Days Qty: 20 0RF Trelegy Ellipta 100-62.5-25 mcg blister with device 1 inh inhalation Q24H Qty: 60 11RF Changed furosemide [Lasix] 40 mg tablet 40 mg PO 1XD Qty: 1 0RF Discontinued Ingrezza 40 mg capsule 40 mg PO QDAY metolazone 2.5 mg tablet 2.5 mg PO QDAY Qty: 90 3RF Rx Instructions: take 2.5mg (1 tablet) with AM Furosemide Referrals / Follow Up: Eric Marion [facility], RUBBER DOWN-C [Primary Care Provider] - Within 2 Weeks Disposition Disposition (needs filled in before D/C Order can be placed): Home, Self Care
--- NOTE | 2024-09-16 10:37 | PCM.DC.SUM ---
Providers Date of Admission: 09/13/24 Date of Discharge: 09/16/24 Primary Care Physician: ROSELYN DalalC Reason For Visit: DIVERTICULITIS, CHELSEY W/ DEHYDRATION, ELEVATED Diagnosis Discharge Diagnosis (1) Diverticulitis: Status: Acute Code(s): K57.92 - Diverticulitis of intestine, part unspecified, without perforation or abscess without bleeding Plan 1. Acute diverticulitis in the sigmoid colon-continue IV Flagyl and Cipro, advance diet as tolerated #2 acute kidney injury on a backdrop of chronic kidney disease stage IIIb-patient received IV fluids, I will recheck a BMP tomorrow #3 hypokalemia-patient was given IV potassium supplementation, BMP will be repeated tomorrow #4 type 2 diabetes-patient's blood sugars will be monitored, sliding scale insulin will be given if needed, patient is on basal insulin #5 elevated troponin-I do not feel the patient has had a non-STEMI or demand ischemia-etiology of the elevated troponin is unknown #6 acute on chronic debility-PT and OT will see the patient, patient lives alone #7 bipolar disorder-complicates care, management, recovery, and prognosis, patient will remain on her home psychiatric medication #8 hypothyroidism-continue home Synthroid #9 chronic obstructive pulmonary disease-patient will receive aerosol treatment #10 long-term use of anticoagulant due to paroxysmal [id number] will remain on her anticoagulant #11 paroxysmal [id number] does not appear to be on rate limiting medication, she is on anticoagulation, patient will be monitored Total clinical time spent by myself addressing the patient's medical issues, reviewing all of her data, and collaborating with the patient's care team: 35 minutes Medications at Discharge Home Medications apixaban 5 mg tablet (Eliquis) 5 mg PO BID blood thinner 12/24/22 atorvastatin 20 mg tablet 20 mg PO DAILY cholesterol 12/24/22 gabapentin 300 mg capsule 300 mg PO TID nerve pain 12/25/22 trazodone 100 mg tablet 100 mg PO QHS sleep 01/01/23 aripiprazole 20 mg tablet 20 mg PO QHS mental health 03/09/23 fluticasone propionate 50 mcg/actuation nasal spray,suspension 1 spray intranasal DAILY PRN allergy symptoms 04/27/23 divalproex 500 mg tablet,extended release 24 hr 500 mg PO QHS seizure 07/25/23 levothyroxine 100 mcg tablet 100 mcg PO DAILY thyroid 07/25/23 insulin glargine 100 unit/mL (3 mL) subcutaneous pen (Lantus Solostar U-100 Insulin) 20 unit subcut DAILY diabetes 10/13/23 clotrimazole-betamethasone 1 %-0.05 % topical cream 1 applic topical BID skin irritation 12/24/23 empagliflozin 25 mg tablet (Jardiance) 25 mg PO QAM diabetes 12/24/23 epinephrine 0.3 mg/0.3 mL injection, auto-injector (EpiPen 2-Wayne) 0.3 mg IM ONCE allergic reaction 12/24/23 meloxicam 7.5 mg tablet 7.5 mg PO QDAY PRN pain 12/24/23 pantoprazole 40 mg tablet,delayed release 40 mg PO QDAY acid reflux 12/24/23 nystatin 100,000 unit/gram topical powder 1 applic topical BID skin irritation 01/06/24 docusate sodium 100 mg capsule (Colace) 100 mg PO BID PRN constipation 03/07/24 tobramycin 0.3 %-dexamethasone 0.05 % eye drops,suspension (Tobradex ST) 1 drp ophthalmic (eye) .Q4-6H 03/07/24 linaclotide 145 mcg capsule (Linzess) 145 mcg PO QAM bowels #60 caps 03/10/24 methocarbamol 500 mg tablet 500 mg PO 4X/DAY PRN Muscle pain/spasm #40 tabs 03/16/24 hydrocodone-acetaminophen 5-325mg 5mg-325mg 1 tab PO Q6H PRN pain 5 days #20 tabs 03/28/24 atropine 1 % eye drops 1 drp PO BID eye health 05/03/24 peg 400-propylene glycol 0.4 %-0.3 % eye drops (Lubricant Eye (PG-PEG 400)) 1 drp EACH EYE DAILY PRN dry eye(s) 05/03/24 hydrocortisone 2.5 % topical cream 1 applic topical BID PRN 05/29/24 sodium sul 1.479 gram-potas ch 0.188 gram-magnes sul 0.225 gram tablet (Sutab) 1 tab PO PER PKG DIR 05/29/24 dulaglutide 0.75 mg/0.5 mL subcutaneous pen injector (Trulicity) 0.75 mg subcut QWEEK 07/11/24 diclofenac 1.5 % solution and menthol 10 %-camphor 4 % gel topical kit 2 ea topical 4X/DAY 07/18/24 fluticasone fur. 100 mcg-umeclid 62.5 mcg-vilant 25 mcg inhalat.powder (Trelegy Ellipta) 1 inh inhalation Q24H #60 ea 09/11/24 ciprofloxacin HCl 500 mg tablet (Cipro) 500 mg PO BID #10 tabs 09/16/24 furosemide 40 mg tablet (Lasix) 40 mg PO 1XD #1 TAB 09/16/24 metronidazole 500 mg tablet 500 mg PO TID #15 tabs 09/16/24 Hospital Course Operations None Procedures None Summary of Care Provided Minutes Spent on Discharge: 31 Hospital Course: This 63-year-old white female was seen in the emergency room at [facility] with complaints of chest pain x 2 to 3 days, she stated it was over the left side of her anterior chest. She called the squad to come in for evaluation, she also complained of left lower quadrant abdominal discomfort. Patient stated that she was scheduled to have a CT as an outpatient for workup. Labs obtained showed an elevated white blood cell count of 12, her potassium was low at 2.4, creatinine was elevated at 2.43 and BUN was 79. Initial troponin was 94, repeat troponin was 84. EKG showed no evidence of ischemic changes, CT of the abdomen with pelvis and chest was obtained, there was noted to be a short segment sigmoid colon wall thickening in the region of diverticuli without significant surrounding inflammatory changes equivocal for acute uncomplicated sigmoid diverticulitis, there was noted to be a trace right pleural effusion. Patient was admitted for acute diverticulitis, acute kidney injury, and hypokalemia, potassium replacement was given to the patient and follow-up labs were monitored. I did not feel the patient's troponin elevation was significant. Patient had no complications during her hospitalization, she was treated with IV antibiotic administration. On 09/16/2024, patient was seen and examined: On examination she appeared in good health and spirits, she does not appear to be in any distress. Vital signs as documented. Skin warm and dry and without overt rashes. Neck without JVD, thyroid appears normal, trachea is midline, neck is supple. Lungs clear, normal air movement was noted. Heart exam notable for regular rhythm, normal sounds and absence of murmurs, rubs or gallops. Abdomen unremarkable and without evidence of organomegaly, masses, or abdominal aortic enlargement, bowel sounds are present in all 4 quadrants, no abdominal tenderness was noted. Extremities nonedematous, no cyanosis was noted, no clubbing was noted. Neuro: Cranial nerves II through XII are grossly intact, no focal motor deficits were noted, sensation to light touch and pinprick is intact, motor exam 5/5 throughout. Psych: Patient is alert and oriented x3, she does not appear anxious or depressed, she does not appear agitated. Patient was discharged home in stable condition on 09/16/2024. Weight / BMI Weight Weight: 96.5 kg Body Mass Index (BMI) 37.7 ABG / Lab / Microbiology Data 09/14/24 05:16 09/16/24 06:18 Laboratory: Laboratory Results - last 24 hr 09/15/24 11:19: POC Glucose 165 H 09/15/24 18:07: POC Glucose 165 H 09/15/24 21:03: POC Glucose 167 H 09/16/24 06:18: Sodium 140, Potassium 3.6, Chloride 99, Carbon Dioxide 29.2, Anion Gap 12, BUN 41 H, Creatinine 1.48 H, Estim Creat Clear Calc 42.46 L, Est GFR (MDRD) Non-Af 39 L, BUN/Creatinine Ratio 27.6 H, Glucose 206 H, Calcium 9.6 09/16/24 06:26: POC Glucose 195 H 09/16/24 09:04: POC Glucose 139 H Microbiology: Microbiology 09/13/24 18:27 Blood Culture (Wb) - Anticubital Right Blood Culture - Final No growth in 5 days. 09/13/24 17:51 Blood Culture (Wb) - Anticubital Left Blood Culture - Final No growth in 5 days. D/C Instructions Weight Bearing Status: Full weight bearing DC O2, CPAP, BIPAP Needs Home O2 Discharge instructions: Yes Type of respiratory needs?: Oxygen Oxygen frequency: With Sleeping Oxygen liters per minute when sleepin L DC home with Oxygen: Yes Home O2 MD Review: I have reviewed the oxygen testing, and the patient qualifies for home oxygen equipment and portability. The patient is mobile in the home and the community. Meaningful Use Info Meaningful Use Meaningful Use Diagnoses (Choose all that apply): None applicable Discharge Plan Admission Admit Date/Time: 09/13/24 21:09 Primary Reason for Your Visit: Diverticulitis Attending Provider: Eric Treadwell Primary Care Provider: Eric Marion [facility] Consulting Providers: Dipesh Del Cid Discharge Orders/Prescriptions Prescriptions: New ciprofloxacin HCl [Cipro] 500 mg tablet 500 mg PO BID Qty: 10 0RF metronidazole 500 mg tablet 500 mg PO TID Qty: 15 0RF Continued atorvastatin 20 mg tablet 20 mg PO DAILY Patient Comments: 5 PM Eliquis 5 mg tablet 5 mg PO BID Patient Comments: STOP 2-3 DAYS PRIOR TO SURGERY gabapentin 300 mg capsule 300 mg PO TID fluticasone propionate 50 mcg/actuation spray,suspension 1 spray intranasal DAILY PRN (Reason: allergy symptoms) Patient Comments: instill 2 sprays in each nostril daily nystatin 100,000 unit/gram powder 1 applic topical BID clotrimazole-betamethasone 1-0.05 % cream 1 applic topical BID epinephrine [EpiPen 2-Wayne] 0.3 mg/0.3 mL auto-injector 0.3 mg IM ONCE Rx Instructions: as a single dose; may repeat once meloxicam 7.5 mg tablet 7.5 mg PO QDAY PRN (Reason: pain) Patient Comments: STOP 5-7 DAYS PRIOR TO OR Jardiance 25 mg tablet 25 mg PO QAM Patient Comments: PCP WANTS PT TO STOP 3-4 DAYS PRIOR TO SURGERY pantoprazole 40 mg tablet,delayed release (DR/EC) 40 mg PO QDAY Linzess 145 mcg capsule 145 mcg PO QAM Qty: 60 2RF timcapnxot-pfkamvf-wrmfyax 1.5-10-4 % kit 2 ea topical 4X/DAY hydrocortisone 2.5 % cream 1 applic topical BID PRN Sutab 1.479-0.188- 0.225 gram tablet 1 tab PO PER PKG DIR Rx Instructions: For colonoscopy Trulicity 0.75 mg/0.5 mL pen injector 0.75 mg subcut QWEEK trazodone 100 mg tablet 100 mg PO QHS Patient Comments: TAKE 1 TABLET BY MOUTH EVERY DAY AT NIGHT aripiprazole 20 mg tablet 20 mg PO QHS Patient Comments: TAKE ONE TABLET BY MOUTH DAILY AT 9AM divalproex 500 mg tablet extended release 24 hr 500 mg PO QHS levothyroxine 100 mcg tablet 100 mcg PO DAILY insulin glargine [Lantus Solostar U-100 Insulin] 100 unit/mL (3 mL) insulin pen 20 unit subcut DAILY Tobradex ST 0.3-0.05 % drops,suspension 1 drp ophthalmic (eye) .Q4-6H docusate sodium [Colace] 100 mg capsule 100 mg PO BID PRN (Reason: constipation) methocarbamol 500 mg tablet 500 mg PO 4X/DAY PRN (Reason: Muscle pain/spasm) Qty: 40 0RF atropine 1 % drops 1 drp PO BID Rx Instructions: administer to back of throat/tongue and swallow Lubricant Eye (PG-PEG 400) 0.4-0.3 % drops 1 drp EACH EYE DAILY PRN (Reason: dry eye(s)) hydrocodone-acetaminophen 5-325 mg tablet 1 tab PO Q6H PRN (Reason: pain) 5 Days Qty: 20 0RF Trelegy Ellipta 100-62.5-25 mcg blister with device 1 inh inhalation Q24H Qty: 60 11RF Changed furosemide [Lasix] 40 mg tablet 40 mg PO 1XD Qty: 1 0RF Discontinued Ingrezza 40 mg capsule 40 mg PO QDAY metolazone 2.5 mg tablet 2.5 mg PO QDAY Qty: 90 3RF Rx Instructions: take 2.5mg (1 tablet) with AM Furosemide Referrals / Follow Up: Eric Marion [facility], LANCE CREWMEMBER/MLRS SERGEANT-C [Primary Care Provider] - Within 2 Weeks Disposition Disposition (needs filled in before D/C Order can be placed): Home, Self Care Charges/Coding Visit Charges Inpatient E&M: 69562 Disch Hosp >30min
[2024-09-16 11:37] VITALS: BP 125/62; PULSE 81; RESP 18; TEMP 36.6; O2SAT 93
== END 2024-09-16 12:11 | disposition home or self-care (01) | DRG 683 ==
LOC: ED 21:19 → PCU 21:40
PROVIDERS: Admitting Provider Hospitalist; Emergency Provider Emergency Medicine; PCP Nurse Practitioner Family; Referring Provider Emergency Medicine; Visit Provider Internal Medicine
DX: N17.9 Acute kidney failure, unspecified (principal); I13.0 Hypertensive heart and chronic kidney disease with heart failure and stage 1 through stage 4 chronic kidney disease, or unspecified chronic kidney disease; I50.32 Chronic diastolic (congestive) heart failure; I48.92 Unspecified atrial flutter; K57.32 Diverticulitis of large intestine without perforation or abscess without bleeding; F25.0 Schizoaffective disorder, bipolar type; Z66 Do not resuscitate; I48.0 Paroxysmal atrial fibrillation; E86.1 Hypovolemia; J44.9 Chronic obstructive pulmonary disease, unspecified; E11.40 Type 2 diabetes mellitus with diabetic neuropathy, unspecified; N18.32 Chronic kidney disease, stage 3b; G40.909 Epilepsy, unspecified, not intractable, without status epilepticus; E03.9 Hypothyroidism, unspecified; E66.812 Obesity, class 2; E87.6 Hypokalemia; I89.0 Lymphedema, not elsewhere classified; I25.10 Atherosclerotic heart disease of native coronary artery without angina pectoris; K21.9 Gastro-esophageal reflux disease without esophagitis; F41.9 Anxiety disorder, unspecified; I25.2 Old myocardial infarction; E78.5 Hyperlipidemia, unspecified; K58.9 Irritable bowel syndrome, unspecified; Z79.4 Long term (current) use of insulin; F17.210 Nicotine dependence, cigarettes, uncomplicated; F17.290 Nicotine dependence, other tobacco product, uncomplicated; I95.9 Hypotension, unspecified; E11.22 Type 2 diabetes mellitus with diabetic chronic kidney disease; G89.29 Other chronic pain; R79.89 Other specified abnormal findings of blood chemistry; R53.81 Other malaise; Z79.01 Long term (current) use of anticoagulants; Z79.899 Other long term (current) drug therapy; Z79.890 Hormone replacement therapy; Z79.85 Long-term (current) use of injectable non-insulin antidiabetic drugs; Z79.51 Long term (current) use of inhaled steroids; Z90.49 Acquired absence of other specified parts of digestive tract; Z68.37 Body mass index [BMI] 37.0-37.9, adult
CPT/HCPCS: 36415; 71046; 71250; 74176; 80048; 80076; 82962; 83605; 83690; 83735; 84100; 84443; 84484; 85025; 85027; 87040; 93005; 94640; 94668; 97162; 97166; 97802; 99252; 99285; A4216; G0463; J0744

== ENCOUNTER → 2024-09-19 | Outpatient (CLI) | payer MEDICARE, MEDICAID, SELFPAY | END | disposition home or self-care (01) | LOC: SL 20:19 | PROVIDERS: PCP Nurse Practitioner Family; Referring Provider Nurse Practitioner Family; Visit Provider Nurse Practitioner Family | DX: G47.33 Obstructive sleep apnea (adult) (pediatric) (principal); J44.9 Chronic obstructive pulmonary disease, unspecified | CPT/HCPCS: 95811 ==

== ENCOUNTER → 2024-09-20 | Outpatient (CLI) | payer MEDICARE, MEDICAID, SELFPAY ==
--- NOTE | 2024-09-20 14:07 | CT_ITS ---
PROCEDURE: LOW DOSE CT LUNG SCREENING 09/20/2024 REASON FOR EXAM: SMOKING. Patient has smoked 1-1/2-2 packs per day for 48 years. COPD. TECHNIQUE: LOW DOSE CT LUNG SCREENING Coronal and Sagittal reconstruction series were provided. One or more dose reduction techniques were used (e.g., Automated exposure control, adjustment of the mA and/or kV according to patient size, use of iterative reconstruction technique). REFERENCE LINK: [facility] Lung-RADS RADIATION DOSE SUMMARY: CTDlvol: 3.02 mGy DLP: 98.55 mGycm COMPARISON: Prior CT scan of the thorax dated September 13, 2024. FINDINGS: PULMONARY NODULES: (Only nodules >3mm are reported) Nodules described below are on series 1 unless otherwise specified. Pulmonary Nodules: No suspicious nodules are seen. Hardware:Right-sided internal jugular venous catheter. Lymph Nodes:Small benign-appearing mean Heart and Vasculature:The heart is nonenlarged. Coronary Artery Calcifications: Present Lungs and Airways: Scarring at the lung apices. Pleura:Unremarkable Upper Abdomen:Unremarkable Bones:Degenerative changes of the thoracic spine. CT/Low Dose CT Lung Screening IMPRESSION: No suspicious nodules are seen. Coronary artery calcification (CAC) is is present Lung-RADS Category: 2 BENIGN (BASED ON IMAGING FEATURES OR INDOLENT BEHAVIOR). RECOMMEND 12-MONTH SCREENING LDCT. Other Significant Findings: Reading Location: [place] [id number]
--- NOTE | 2024-09-20 14:07 | CT_ITS ---
PROCEDURE: LOW DOSE CT LUNG SCREENING 09/20/2024 REASON FOR EXAM: SMOKING. Patient has smoked 1-1/2-2 packs per day for 48 years. COPD. TECHNIQUE: LOW DOSE CT LUNG SCREENING Coronal and Sagittal reconstruction series were provided. One or more dose reduction techniques were used (e.g., Automated exposure control, adjustment of the mA and/or kV according to patient size, use of iterative reconstruction technique). REFERENCE LINK: [facility] Lung-RADS RADIATION DOSE SUMMARY: CTDlvol: 3.02 mGy DLP: 98.55 mGycm COMPARISON: Prior CT scan of the thorax dated September 13, 2024. FINDINGS: PULMONARY NODULES: (Only nodules >3mm are reported) Nodules described below are on series 1 unless otherwise specified. Pulmonary Nodules: No suspicious nodules are seen. Hardware:Right-sided internal jugular venous catheter. Lymph Nodes:Small benign-appearing mean Heart and Vasculature:The heart is nonenlarged. Coronary Artery Calcifications: Present Lungs and Airways: Scarring at the lung apices. Pleura:Unremarkable Upper Abdomen:Unremarkable Bones:Degenerative changes of the thoracic spine. CT/Low Dose CT Lung Screening IMPRESSION: No suspicious nodules are seen. Coronary artery calcification (CAC) is is present Lung-RADS Category: 2 BENIGN (BASED ON IMAGING FEATURES OR INDOLENT BEHAVIOR). RECOMMEND 12-MONTH SCREENING LDCT. Other Significant Findings: Reading Location: [place] [id number]
== END | disposition home or self-care (01) ==
LOC: CT 14:00
PROVIDERS: PCP Nurse Practitioner Family; Referring Provider Nurse Practitioner Acute Care; Visit Provider Nurse Practitioner Acute Care
DX: F17.210 Nicotine dependence, cigarettes, uncomplicated (principal)
CPT/HCPCS: 71271

== ENCOUNTER 2024-10-01 16:34 | Emergency (ER) | payer MEDICARE, MEDICAID, SELFPAY ==
[2024-10-01 16:36] VITALS: BP 148/105; PULSE 75; RESP 18; TEMP 36.6; O2SAT 98; BMI 39.6
--- NOTE | 2024-10-01 16:40 | RAD_ITS ---
EXAM: Right tibia and fibula. CLINICAL HISTORY: Pain. COMPARISON: None. TECHNIQUE: Two views. FINDINGS: Status post right knee arthroplasty. No evidence of acute fracture or dislocation. Soft tissue edema. RAD/Tibia & Fibula 2 Views IMPRESSION: No acute osseous abnormalities. Reading Location: [id number]
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
[2024-10-01 17:42] VITALS: BP 132/99; PULSE 74; RESP 16; TEMP 36.6; O2SAT 94
== END 2024-10-01 17:42 | disposition home or self-care (01) ==
PROVIDERS: Emergency Provider Emergency Medicine; PCP Nurse Practitioner Family; Visit Provider Emergency Medicine
DX: S80.11XA Contusion of right lower leg, initial encounter (principal); I13.0 Hypertensive heart and chronic kidney disease with heart failure and stage 1 through stage 4 chronic kidney disease, or unspecified chronic kidney disease; I50.9 Heart failure, unspecified; J43.9 Emphysema, unspecified; I48.0 Paroxysmal atrial fibrillation; I48.20 Chronic atrial fibrillation, unspecified; E11.51 Type 2 diabetes mellitus with diabetic peripheral angiopathy without gangrene; E11.22 Type 2 diabetes mellitus with diabetic chronic kidney disease; E11.40 Type 2 diabetes mellitus with diabetic neuropathy, unspecified; Z79.4 Long term (current) use of insulin; N18.9 Chronic kidney disease, unspecified; E87.6 Hypokalemia; F17.210 Nicotine dependence, cigarettes, uncomplicated; R26.2 Difficulty in walking, not elsewhere classified; Z79.01 Long term (current) use of anticoagulants; I89.0 Lymphedema, not elsewhere classified; S80.811A Abrasion, right lower leg, initial encounter; E78.00 Pure hypercholesterolemia, unspecified; K21.9 Gastro-esophageal reflux disease without esophagitis; F17.290 Nicotine dependence, other tobacco product, uncomplicated; E03.9 Hypothyroidism, unspecified; W22.8XXA Striking against or struck by other objects, initial encounter; I73.9 Peripheral vascular disease, unspecified
CPT/HCPCS: 73590; 99284

== ENCOUNTER → 2024-10-03 | Outpatient (CLI) | payer MEDICARE, MEDICAID, SELFPAY ==
[2024-10-03 16:42] LABS: Hematocrit 37.1 % (37-47); Hemoglobin 12.0 g/dL (12.0-15.0); Immature Granulocytes Count 0.030 X10^3/uL (0.0-0.0); Mean Corp Hgb Conc 32.3 g/dL (32-36); Mean Corpuscular Volume 91.2 fL (81-99); Mean Platelet Vol. 10.6 fl (6.2-12.0); NRBC Flagged by Analyzer 0 % (0-5); Platelet Count 162 K/mm3 (150-450); RBC Distribution Width CV 13.8 % (11.6-14.6); RBC Distribution Width SD 46.3 fl (35.1-43.9); Red Blood Count 4.07 M/mm3 (4.2-5.4); White Blood Count 8.3 K/mm3 (4.4-11.0)
[2024-10-03 17:06] LABS: Creatinine, Urine (random) 105.00 mg/dL (28.00-217.00); Microalbumin,Random Urine < 12.0 mg/L (<20 mg/L)
[2024-10-03 17:15] LABS: AST(SGOT) 19 U/L (<=31); Alanine Aminotransfer ALT/SGPT 10 U/L (<=34); Albumin, Serum 3.7 g/dL (3.4-4.8); Alkaline Phosphatase 68 U/L (35-104); Anion Gap 12 (5-15); BUN 24 mg/dL (4-19); BUN/Creat Ratio 14.6 RATIO (10-20); Calcium,Total 9.6 mg/dL (7.6-11.0); Carbon Dioxide 31.0 mmol/L (21.0-32.0); Chloride 98 mmol/L (98-108); Cholesterol 113 mg/dL (<=200); Globulin 2.9 g/dL (2.2-4.2); Glucose 151 mg/dL (70-99); Low Density Lipoprotein Calc. 48 mg/dL; Potassium 3.7 mmol/L (3.3-5.1); Triglycerides 149 mg/dL; Very Low Density Lipoprotein 30 mg/dL (5-40); cholesterol:hdl ratio screen 3.22
== END | disposition home or self-care (01) ==
LOC: VSLAB 11:25
PROVIDERS: Nurse Practitioner Family; PCP Nurse Practitioner Family
DX: E11.9 Type 2 diabetes mellitus without complications (principal)
CPT/HCPCS: 36415; 80053; 80061; 82043; 82570; 83036; 84443; 85025

== ENCOUNTER 2024-10-08 19:27 | Inpatient (IN) | payer MEDICARE, MEDICAID, SELFPAY ==
[2024-10-08] VITALS (7 sets, daily range): BP systolic 107–148; BP diastolic 53–124; PULSE 18–63; RESP 18–96; TEMP 36.5–37; O2SAT 93–98; BMI 39.7; BMI 39.3
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
[2024-10-08 20:09] LABS: Hematocrit 36.2 % (37-47); Hemoglobin 11.7 g/dL (12.0-15.0); Immature Granulocytes Count 0.040 X10^3/uL (0.0-0.0); Mean Corp Hgb Conc 32.3 g/dL (32-36); Mean Corpuscular Volume 91.2 fL (81-99); Mean Platelet Vol. 9.8 fl (6.2-12.0); NRBC Flagged by Analyzer 0 % (0-5); Platelet Count 180 K/mm3 (150-450); RBC Distribution Width CV 14.7 % (11.6-14.6); RBC Distribution Width SD 48.7 fl (35.1-43.9); Red Blood Count 3.97 M/mm3 (4.2-5.4); White Blood Count 8.5 K/mm3 (4.4-11.0)
[2024-10-08] MEDS: Meropenem 1 GM in 0.9% Normal Saline (100mL MB+) 100 ML IV (20:21)
[2024-10-08 20:42] LABS: Anion Gap 12 (5-15); BUN 21 mg/dL (4-19); BUN/Creat Ratio 14.8 RATIO (10-20); Calcium,Total 9.3 mg/dL (7.6-11.0); Carbon Dioxide 30.0 mmol/L (21.0-32.0); Chloride 100 mmol/L (98-108); Estimated Creatinine Clearance 45.92 ml/min (50-250); Glucose 120 mg/dL (70-99); Potassium 3.4 mmol/L (3.3-5.1)
[2024-10-08] MEDS: Vancomycin HCl 2,000 MG in 0.9% Normal Saline (500mL Bag) 500 ML 250 MG IV (21:00)
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
[2024-10-08 22:10] LABS: Magnesium 1.9 mg/dL (1.5-2.2)
[2024-10-08] MEDS: 0.9% Normal Saline (1000mL) 1,000 ML 70 ML IV (22:37)
[2024-10-08] MEDS: Lactobacillis Acidophilus 1 CAP PO (23:06)
[2024-10-08] MEDS: Divalproex (ER) 500 MG Tablet PO (23:06)
[2024-10-08] MEDS: APIXABAN 5 MG TABLET PO (23:06)
[2024-10-08] MEDS: Zinc Sulfate 50 mg zinc (220 mg) ORAL capsule PO (23:08)
[2024-10-08] MEDS: Cholecalciferol (Vit D3) 125 MCG CAPSULE (5,000 UNITS) PO (23:08)
--- NOTE | 2024-10-08 23:22 | PCM.RX.CS ---
Consult Antibiotic Management Pharmacy has been consulted to manage selected antibiotic: Vancomycin Type of Intervention Type of Consult: New start Suspected Infection Suspected Infection: Skin/Soft tissue Labs Labs: Sodium 143 mmol/L (133-145) 10/08/24 19:52 Potassium 3.4 mmol/L (3.3-5.1) 10/08/24 19:52 Chloride 100 mmol/L (98-108) 10/08/24 19:52 Carbon Dioxide 30.0 mmol/L (21.0-32.0) 10/08/24 19:52 Anion Gap 12 (5-15) 10/08/24 19:52 BUN 21 mg/dL (4-19) H 10/08/24 19:52 Creatinine 1.41 mg/dL (0.70-1.20) H 10/08/24 19:52 Est GFR (MDRD) Non-Af 42 (>60) L 10/08/24 19:52 BUN/Creatinine Ratio 14.8 RATIO (10-20) 10/08/24 19:52 Glucose 120 mg/dL (70-99) H 10/08/24 19:52 Dosing Weight Weight used for dosin.7 kg Estimated Creatinine Clearance Estimated Creatinine Clearance: 46 Goal Trough Goal Trough: 15-20 mcg/mL Pharmacy Plan for Drug Dosing Pharmacy Plan for Drug Dosing: Pharmacy Service will continue to monitor and adjust dosing as required. Follow-Up Labs Follow-Up Labs: Trough: Vancomycin Date/Time Labs Ordered Labs to be done on [date and time ordered]: 10/10/24 @0830
[2024-10-08] MEDS: HYDROcodone Bitartrate/Apap 5/325 Tablet PO (23:25)
[2024-10-09] VITALS (10 sets, daily range): BP systolic 110–136; BP diastolic 57–91; PULSE 51–112; RESP 12–20; TEMP 36.2–36.5; O2SAT 94–100; BMI 39.9
[2024-10-09 00:32] LABS: Valproic Acid (Depakene) Level 37 ug/mL (50-100)
[2024-10-09] MEDS: HYDROcodone Bitartrate/Apap 5/325 Tablet PO ×2 (06:42→14:47)
[2024-10-09 07:25] LABS: Hematocrit 37.0 % (37-47); Hemoglobin 11.3 g/dL (12.0-15.0); Immature Granulocytes Count 0.040 X10^3/uL (0.0-0.0); Mean Corp Hgb Conc 30.5 g/dL (32-36); Mean Corpuscular Volume 97.9 fL (81-99); Mean Platelet Vol. 9.9 fl (6.2-12.0); NRBC Flagged by Analyzer 0 % (0-5); Platelet Count 146 K/mm3 (150-450); RBC Distribution Width CV 14.9 % (11.6-14.6); RBC Distribution Width SD 53.1 fl (35.1-43.9); Red Blood Count 3.78 M/mm3 (4.2-5.4); White Blood Count 7.1 K/mm3 (4.4-11.0)
[2024-10-09] MEDS: Budesonide Respules 0.5 MG/2 ML AMPUL.NEB. INHALATION ×2 (07:43→19:57)
[2024-10-09 08:01] LABS: AST(SGOT) 17 U/L (<=31); Alanine Aminotransfer ALT/SGPT 7 U/L (<=34); Albumin, Serum 3.2 g/dL (3.4-4.8); Alkaline Phosphatase 62 U/L (35-104); Anion Gap 15 (5-15); BUN 21 mg/dL (4-19); BUN/Creat Ratio 14.7 RATIO (10-20); Calcium,Total 8.9 mg/dL (7.6-11.0); Carbon Dioxide 21.5 mmol/L (21.0-32.0); Chloride 103 mmol/L (98-108); Estimated Creatinine Clearance 46.02 ml/min (50-250); Globulin 2.1 g/dL (2.2-4.2); Glucose 123 mg/dL (70-99); Potassium 4.1 mmol/L (3.3-5.1)
[2024-10-09] MEDS: Lactobacillis Acidophilus 1 CAP PO ×4 (08:50→21:26)
[2024-10-09] MEDS: APIXABAN 5 MG TABLET PO (08:51)
[2024-10-09] MEDS: Cholecalciferol (Vit D3) 125 MCG CAPSULE (5,000 UNITS) PO (08:51)
[2024-10-09] MEDS: Zinc Sulfate 50 mg zinc (220 mg) ORAL capsule PO (08:53)
[2024-10-09] MEDS: Insulin Glargine-YFGN 100 UNIT/ML Pen 16 UNIT SC (08:53)
[2024-10-09] MEDS: Vancomycin HCl 750 MG in 0.9% Normal Saline (250mL Bag) 250 ML 250 MG IV (09:27)
[2024-10-09] MEDS: Meropenem 1 GM in 0.9% Normal Saline (100mL MB+) 100 ML IV (10:50)
--- NOTE | 2024-10-09 11:10 | PCM.CONS.GEN ---
Assessment & Plan Assessment/Plan (1) Cellulitis of right leg: PLAN: H/o hives with PCN but tolerated keflex well. No purulence seen. Will narrow to po doxy and cefazolin. Will follow, thank you (2) Failure of outpatient treatment: (3) Chronic kidney disease: QUALIFIERS: Chronic kidney disease stage: stage 4 (GFR 15-29) Qualified Code(s): N18.4 - Chronic kidney disease, stage 4 (severe) HPI Consult Data Date of Consult: 10/09/24 HPI Narrative Reason for Consultation: cellulitis HPI Narrative: JADE SWANSON, is a 63 F with h/o htn, DM, COPD, CKD, presented 10/08 with one week progressive R lower leg pain, redness, swelling, and hematoma on schwartz after getting hit by a wheelchair. No fever or chills. Had been on keflex for past 5-6 days with worsening sx. Admitted on vanc/janie. Feeling about the same this AM. Full ROS performed and neg except as noted above. [facility] Medical History Acute hypokalemia Diverticulitis Chronic kidney disease Elevated brain natriuretic peptide (BNP) level Hypoxia Elevated troponin Heart failure History of diabetes mellitus Chronic venous insufficiency History of atrial fibrillation Chronic anticoagulation Edema, peripheral Left shoulder pain Wears hearing aid Post-menopausal Depression Anxiety History of steroid therapy Walker as ambulation aid Kidney stones Arthritis Back pain History of IBS Former smoker COPD (chronic obstructive pulmonary disease) Shortness of breath on exertion Thyroid disease History of heart attack History of stress test History of echocardiogram Low platelet count Anemia History of ESBL E. coli infection Morbid obesity with BMI of 40.0-44.9, adult Congestive heart failure Peripheral edema History of CHF (congestive heart failure) History of atrial fibrillation History of hypertension Chest pain of uncertain etiology Bradycardia History of tobacco use History of diabetes mellitus, type II History of COPD Acute hypotension Pulmonary hypertension, secondary Abdominal ascites Diverticulitis large intestine w/o perforation or abscess w/bleeding Pericardial effusion with cardiac tamponade Chronic kidney disease History of cardiac arrest Chest pain Wears glasses Wears dentures Substance abuse Alcohol use Rash Gout High cholesterol PVD (peripheral vascular disease) Easy bruising Seizures Dietary restriction Gastric reflux Injury of back Vapes nicotine containing substance Fall History of pain when walking History of edema Insomnia Major depression On home oxygen therapy Emphysema, unspecified Neuropathy Cardiology follow-up encounter History of ulceration DKA (diabetic ketoacidosis) 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 Encounter for infusaport central venous catheter removal Lichen sclerosus Macular degeneration Essential hypertension Decreased left ventricular function Paroxysmal atrial fibrillation Diverticulosis Migraine Iron deficiency anemia COPD (chronic obstructive pulmonary disease) Port-A-Cath in place Acid reflux IBS (irritable bowel syndrome) CHF (congestive heart failure) Neuropathy Kidney failure Hypothyroid Schizoaffective disorder, bipolar type Emphysema lung Diabetes Heart attack Home Medications ?Medication ?Instructions ?Recorded ?Last Taken ?Type apixaban 5 mg tablet (Eliquis) 5 mg PO BID blood thinner 12/24/22 03/15/24 History gabapentin 300 mg capsule 300 mg PO TID nerve pain 12/25/22 07/27/23 History trazodone 100 mg tablet 100 mg PO QHS sleep 01/01/23 07/26/23 History aripiprazole 20 mg tablet 20 mg PO QHS mental health 03/09/23 03/18/24 History fluticasone propionate 50 1 spray intranasal DAILY PRN 04/27/23 Unknown History mcg/actuation nasal allergy symptoms spray,suspension divalproex 500 mg tablet,extended 500 mg PO QHS seizure 07/25/23 07/27/23 History release 24 hr levothyroxine 100 mcg tablet 100 mcg PO DAILY thyroid 07/25/23 07/27/23 History clotrimazole-betamethasone 1 1 applic topical BID skin 12/24/23 Unknown History %-0.05 % topical cream irritation empagliflozin 25 mg tablet 25 mg PO QAM diabetes 12/24/23 03/17/24 History (Jardiance) epinephrine 0.3 mg/0.3 mL 0.3 mg IM ONCE allergic reaction 12/24/23 Unknown History injection, auto-injector (EpiPen 2-Wayne) meloxicam 7.5 mg tablet 7.5 mg PO QDAY PRN pain 12/24/23 Unknown History pantoprazole 40 mg tablet,delayed 40 mg PO QDAY acid reflux 12/24/23 Unknown History release nystatin 100,000 unit/gram topical 1 applic topical BID skin 01/06/24 Unknown History powder irritation docusate sodium 100 mg capsule 100 mg PO BID PRN constipation 03/07/24 Unknown History (Colace) tobramycin 0.3 %-dexamethasone 1 drp ophthalmic (eye) .Q4-6H 03/07/24 Unknown History 0.05 % eye drops,suspension (Tobradex ST) linaclotide 145 mcg capsule 145 mcg PO QAM bowels #60 caps 03/10/24 Unknown Rx (Linzess) methocarbamol 500 mg tablet 500 mg PO 4X/DAY PRN Muscle 03/16/24 Unknown Rx pain/spasm #40 tabs hydrocodone-acetaminophen 5-325mg 1 tab PO Q6H PRN pain 5 days #20 03/28/24 Unknown Rx 5mg-325mg tabs atropine 1 % eye drops 1 drp PO BID eye health 05/03/24 Unknown History peg 400-propylene glycol 0.4 %-0.3 1 drp EACH EYE DAILY PRN dry eye(s) 05/03/24 Unknown History % eye drops (Lubricant Eye (PG-PEG 400)) hydrocortisone 2.5 % topical cream 1 applic topical BID PRN 05/29/24 Unknown History sodium sul 1.479 gram-potas ch 1 tab PO PER PKG DIR 05/29/24 Unknown History 0.188 gram-magnes sul 0.225 gram tablet (Sutab) diclofenac 1.5 % solution and 2 ea topical 4X/DAY 07/18/24 Unknown History menthol 10 %-camphor 4 % gel topical kit fluticasone fur. 100 mcg-umeclid 1 inh inhalation Q24H #60 ea 09/11/24 Unknown Rx 62.5 mcg-vilant 25 mcg inhalat.powder (Trelegy Ellipta) furosemide 40 mg tablet (Lasix) 40 mg PO 1XD #1 TAB 09/16/24 Unknown Rx metronidazole 500 mg tablet 500 mg PO TID #15 tabs 09/16/24 Unknown Rx dulaglutide 1.5 mg/0.5 mL 1.5 mg (0.5 mL) subcut QWEEK #2 mL 09/21/24 Unknown Rx subcutaneous pen injector (Trulicity) insulin glargine 100 unit/mL (3 22 unit subcut DAILY diabetes 09/21/24 Unknown History mL) subcutaneous pen (Lantus Solostar U-100 Insulin) spironolactone 25 mg tablet 25 mg PO DAILY #30 tabs 09/27/24 Unknown Rx oxycodone 5 mg capsule 5 mg PO Q8H PRN pain 3 days #9 caps 10/01/24 Unknown Rx atorvastatin 10 mg tablet (Lipitor) 10 mg PO QDAY #90 tabs 10/04/24 Unknown Rx ondansetron 4 mg disintegrating 4 mg PO Q8H #10 tabs 10/05/24 Unknown Rx tablet simethicone 125 mg capsule 125 mg PO QD-BID PRN abdominal 10/05/24 Unknown Rx distention #20 caps Allergy/AdvReac Type Severity Reaction Status Date / Time acetaminophen (From Tylenol) Allergy Mild hives Verified 10/08/24 19:29 aspirin Allergy Mild Hives Verified 10/08/24 19:29 erythromycin base Allergy Mild Hives Verified 10/08/24 19:29 Penicillins Allergy Mild Hives Verified 10/08/24 19:29 polyethylene glycol 3350 Allergy Mild Nausea/Vom/ Verified 10/08/24 19:29 (From Miralax) Diarrhea tramadol Allergy Mild Hives Verified 10/08/24 19:29 tomato Allergy Food Verified 10/08/24 19:29 Allergy Family History Mother Heart disease Hypertension Cancer Father Brain aneurysm age 40 CVA (cerebral vascular accident) Cancer Brother Colon cancer Surgical History History of lumbar laminectomy (~03/2024) Hx of surgical procedure History of bilateral knee replacement Hx of vein stripping Hx of toe surgery History of lithotripsy History of delivery History of bilateral cataract extraction History of cholecystectomy H/O: hysterectomy Social History household members: caregiver Smoking Status: Current every day smoker tobacco type: cigarettes and e-cigarettes Tobacco: How many years used: 18 Electronic Cigarette Use: with nicotine second hand exposure: No alcohol intake: never substance use type: does not use caffeine: Yes Physical Exam Const alert, oriented x3 and no apparent distress General Appearance: cooperative HEENT normocephalic and head/scalp atraumatic Eyes PERRL and EOMs intact bilaterally Neck supple and No nodes Resp normal air movement and clear to auscultation bilaterally Cardio regular rate and regular rhythm GI soft to palpation, non-tender and non-distended Extremity General Extremity: edema Skin Skin Narrative: R lower leg red, tender, mild warmth, large hematoma on anterior schwartz Neuro CN's II-XII intact bilaterally Lab / Micro Data Attestation: I reviewed the patient's lab results. 10/09/24 07:05 10/09/24 07:05 Labs: Laboratory Results - last 24 hr 10/08/24 19:52: WBC 8.5, RBC 3.97 L, Hgb 11.7 L, Hct 36.2 L, MCV 91.2, MCH 29.5, MCHC 32.3, RDW Std Deviation 48.7 H, RDW Coeff of Penny 14.7 H, Plt Count 180, MPV 9.8, Immature Gran % (Auto) 0.500, Neut % (Auto) 66.8, Lymph % (Auto) 19.9, Hodgeman % (Auto) 8.3, Eos % (Auto) 3.9, Baso % (Auto) 0.6, Absolute Neuts (auto) 5.7, Absolute Lymphs (auto) 1.68, Nucleated RBC % 0, Sodium 143, Potassium 3.4, Chloride 100, Carbon Dioxide 30.0, Anion Gap 12, BUN 21 H, Creatinine 1.41 H, Estim Creat Clear Calc 45.92 L, Est GFR (MDRD) Non-Af 42 L, BUN/Creatinine Ratio 14.8, Glucose 120 H, Lactic Acid 1.4, Calcium 9.3, Magnesium 1.9, TSH 2.110, Valproic Acid 37 L 10/08/24 22:45: POC Glucose 107 H 10/09/24 06:32: POC Glucose 115 H 10/09/24 07:05: WBC 7.1, RBC 3.78 L, Hgb 11.3 L, Hct 37.0, MCV 97.9 D, MCH 29.9, MCHC 30.5 L D, RDW Std Deviation 53.1 H, RDW Coeff of Penny 14.9 H, Plt Count 146 L, MPV 9.9, Immature Gran % (Auto) 0.600, Neut % (Auto) 62.0, Lymph % (Auto) 21.0, Hodgeman % (Auto) 11.0 H, Eos % (Auto) 4.4, Baso % (Auto) 1.0, Absolute Neuts (auto) 4.4, Absolute Lymphs (auto) 1.49, Nucleated RBC % 0, Sodium 140, Potassium 4.1, Chloride 103, Carbon Dioxide 21.5, Anion Gap 15, BUN 21 H, Creatinine 1.41 H, Estim Creat Clear Calc 46.02 L, Est GFR (MDRD) Non-Af 42 L, BUN/Creatinine Ratio 14.7, Glucose 123 H, Calcium 8.9, Phosphorus 4.4, Total Bilirubin 0.34, AST 17, ALT 7, Alkaline Phosphatase 62, Total Protein 5.3 L, Albumin 3.2 L, Globulin 2.1 L, Albumin/Globulin Ratio 1.5
[2024-10-09 12:10] LABS: Mucous, Urine 0 SEEN /hpf (<or=2+); Red Blood Cells-Urine 0 SEEN /hpf (0-5)
[2024-10-09] MEDS: Cefazolin 2 GM in 0.9% Normal Saline (100mL Bag) 100 ML IV ×2 (12:24→23:34)
[2024-10-09 12:26] LABS: Color, Urine Yellow (Yellow); Glucose, Dipstick 1000 mg/dl (Normal); Ketone-Dipstick Negative (Negative); Leukocyte Esterase-Dipstick 500 /ul (Negative); Nitrite-Dipstick Negative (Negative); Occult Blood-Urine Negative /ul (Negative); Protein-Dipstick 30 mg/dl (Negative); Specific Gravity, Urine 1.020 (1.002-1.030); Urine Bilirubin Dipstick Negative (Negative)
[2024-10-09 12:36] LABS: Squamous Epithelial Cells - UA 0-5 SEEN /hpf (5-10)
--- NOTE | 2024-10-09 13:47 | CASEMGMT ---
HAKEEM DELUNA Readmission Chart Review Index: 09/13-. Dx: Diverticulitis, CHELSEY with Dehydration Current: 10/08/24. Dx: Worsening RLE Cellulitis in the setting of Failed OP treatment The patient resides at [facility]. Patient is active with home healthcare through [facility] (PT/SN). TC to the [facility] Agency who states that they can resume services after DC. The patient also has home oxygen through [employer] at 2L continuous (this was verified). The patient was prescribed antibiotics as an outpatient. The patient is a type 2 diabetic. Per chart of review, the patient is also active with palliative care and [facility] services. E-mail sent to [facility] notifying of admission. Telephone call to [facility]. Transferred to the patient?s child welfare caseworker, Betty Raman (phone: [phone] ), (fax [phone]). Betty reports that the patient is active with 14 home-delivered meals per week, 30 hours of aid services per week, and a medical alert system. HAKEEM DELUNA to the patient's room at this time. Patient is resting comfortably in the bed and is A&Ox4. Patient's sister at the bedside. Patient states that she was wearing her home oxygen through [employer] accordingly. Pt sister states that she can bring in pt's portable tank @ the time of DC. Patient states that she was taking her antibiotics and all of her other prescription medications as ordered. Patient states that she was caring for her diabetes appropriately. Patient states that she was able to follow up with her marketing writer as well as her PCP on the . Moving forward, the patient states that she wishes to continue services through the skilled home healthcare as well as the palliative care and [facility] resources. The patient was cleared by physical therapy, as they are not recommending any additional therapy. ID is consulted, Case Management to follow for any IV antibiotic needs. At this time, the patient wishes to return to [facility] @ the time of DC. Patient and patient sister denied any further questions or concerns at this time.?CM to continue to follow. Tentative Plan: Return to [facility] with [facility], Palliative Care, [facility] services, and oxygen supplied through [employer]. Follow ID consult. Giovanny HERRERA RN, CM
[2024-10-09] MEDS: 0.9% Saline Lock 10 ML Syringe IV (14:07)
--- NOTE | 2024-10-09 14:34 | CASEMGMT ---
Discharge Planning ERICK referral sent to [facility]. Caro Shay DC Planning Asst.
--- NOTE | 2024-10-09 18:25 | PCM.PN.HOSP ---
Reason for Visit Chief Complaint: Worsening RLE Cellulitis. Subjective Subjective Patient was seen and examined today, I had infectious diseases see the patient regarding antibiotic coverage. There is a large area over the inner aspect of the patient's right schwartz area that appears ecchymotic and the area may contain necrotic tissue. I think it would be miller to have either general surgery or plastic surgery look at the area for determination whether it needs debrided. Objective Data Objective Data Vital Signs: Vital Signs Temp Pulse Resp BP Pulse Ox O2 Del Method O2 Flow Rate 97.4 F L 112 H 18 119/57 L 99 Nasal Cannula 2 10/09/24 14:52 10/09/24 14:52 10/09/24 14:52 10/09/24 14:52 10/09/24 14:52 10/09/24 14:52 10/09/24 14:52 Oxygen Flow Rate (L/min) 2 Oxygen Delivery Method Nasal Cannula Weight: 102.2 kg Body Mass Index (BMI) 39.9 Intake & Output: Intake and Output for Last 24 Hours 10/07/24 10/08/24 10/09/24 23:59 23:59 23:59 Intake Total 640 / 790 2014 Balance 640 / 790 2014 Lab / Micro Data 10/09/24 07:05 10/09/24 07:05 Labs: Laboratory Results - last 24 hr 10/08/24 19:52: WBC 8.5, RBC 3.97 L, Hgb 11.7 L, Hct 36.2 L, MCV 91.2, MCH 29.5, MCHC 32.3, RDW Std Deviation 48.7 H, RDW Coeff of Penny 14.7 H, Plt Count 180, MPV 9.8, Immature Gran % (Auto) 0.500, Neut % (Auto) 66.8, Lymph % (Auto) 19.9, Treasure % (Auto) 8.3, Eos % (Auto) 3.9, Baso % (Auto) 0.6, Absolute Neuts (auto) 5.7, Absolute Lymphs (auto) 1.68, Nucleated RBC % 0, Sodium 143, Potassium 3.4, Chloride 100, Carbon Dioxide 30.0, Anion Gap 12, BUN 21 H, Creatinine 1.41 H, Estim Creat Clear Calc 45.92 L, Est GFR (MDRD) Non-Af 42 L, BUN/Creatinine Ratio 14.8, Glucose 120 H, Lactic Acid 1.4, Calcium 9.3, Magnesium 1.9, TSH 2.110, Valproic Acid 37 L 10/08/24 22:45: POC Glucose 107 H 10/09/24 06:32: POC Glucose 115 H 10/09/24 07:05: WBC 7.1, RBC 3.78 L, Hgb 11.3 L, Hct 37.0, MCV 97.9 D, MCH 29.9, MCHC 30.5 L D, RDW Std Deviation 53.1 H, RDW Coeff of Penny 14.9 H, Plt Count 146 L, MPV 9.9, Immature Gran % (Auto) 0.600, Neut % (Auto) 62.0, Lymph % (Auto) 21.0, Treasure % (Auto) 11.0 H, Eos % (Auto) 4.4, Baso % (Auto) 1.0, Absolute Neuts (auto) 4.4, Absolute Lymphs (auto) 1.49, Nucleated RBC % 0, Sodium 140, Potassium 4.1, Chloride 103, Carbon Dioxide 21.5, Anion Gap 15, BUN 21 H, Creatinine 1.41 H, Estim Creat Clear Calc 46.02 L, Est GFR (MDRD) Non-Af 42 L, BUN/Creatinine Ratio 14.7, Glucose 123 H, Calcium 8.9, Phosphorus 4.4, Total Bilirubin 0.34, AST 17, ALT 7, Alkaline Phosphatase 62, Total Protein 5.3 L, Albumin 3.2 L, Globulin 2.1 L, Albumin/Globulin Ratio 1.5 10/09/24 11:30: POC Glucose 149 H 10/09/24 11:55: Urine Color Yellow, Urine Clarity Sl. Cloudy, Urine pH 6.0, Ur Specific [place] 1.020, Urine Protein 30 H, Urine Glucose (UA) 1000 H, Urine Ketones Negative, Urine Occult Blood Negative, Urine Nitrite Negative, Urine Bilirubin Negative, Urine Urobilinogen Normal, Ur Leukocyte Esterase 500 H, Urine RBC 0 SEEN, Urine WBC 5-10 SEEN, Ur Squamous Epith Cells 0-5 SEEN, Urine Bacteria 0 SEEN, Urine Mucus 0 SEEN 10/09/24 16:40: POC Glucose 143 H Physical Exam Const alert, oriented x3 and no apparent distress General Appearance: cooperative, well kempt and well developed Orientation / Consciousness: awake, oriented to person, oriented to place and oriented to time HEENT normocephalic, head/scalp atraumatic and moist oral mucous membranes Eyes PERRL, EOMs intact bilaterally and conjunctivae normal Neck supple, no JVD and thyroid normal General: trachea midline Resp normal respiratory effort and clear to auscultation bilaterally Auscultation: Negative for rales, rhonchi or wheezes Cardio regular rate, regular rhythm, no murmurs, no rub and no gallops GI normal to inspection, nondistended, normoactive bowel sounds, soft to palpation, non-tender and non-distended Extremity Extremity Narrative: There is an area of ecchymosis and what appears to be necrotic skin over the lateral aspect of the patient's right mid schwartz Skin Skin Narrative: There is a large area of ecchymosis and what appears to be necrotic skin over the patient's right lateral mid schwartz area Neuro oriented x3, CN's II-XII intact bilaterally, moves all extremities, no focal motor deficits and no sensory deficits noted Sensorium / Orientation: awake and alert Speech: speech normal Psych affect normal Assessment & Plan Assessment/Plan (1) Hematoma of right lower leg: PLAN: Plan 1. Hematoma of the right schwartz area with possible necrotic tissue-again I will have either general surgery or plastic surgery see the patient in consultation #2 cellulitis of the right lower leg-patient is being seen by infectious diseases and they are adjusting antibiotic coverage #3 bipolar disorder-complicates care, management, recovery, and prognosis, patient will remain on her current medication #4 chronic obstructive pulmonary disease-patient remains on aerosol treatments #5 paroxysmal atrial fibrillation-I have decided to stop the patient's Eliquis in case there is surgical intervention #6 hypothyroidism-patient is on Synthroid #7 type 2 diabetes-patient's blood sugars will be monitored, sliding scale insulin will be administered as needed #8 chronic hypoxic respiratory failure-patient uses home O2 while sleeping Total clinical time spent by myself addressing the patient's medical issues, reviewing all of her data, and collaborating with patient's care team: 50 minutes Charges/Coding Visit Charges Inpatient E&M: [id number] [facility] L3
[2024-10-09] MEDS: Divalproex (ER) 500 MG Tablet PO (21:30)
[2024-10-10] VITALS (8 sets, daily range): BP systolic 116–147; BP diastolic 58–105; PULSE 60–80; RESP 15–20; TEMP 36.6–36.9; O2SAT 93–99; BMI 40.9
[2024-10-10] MEDS: HYDROcodone Bitartrate/Apap 5/325 Tablet PO ×2 (03:39→10:06)
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
--- NOTE | 2024-10-10 07:26 | WOUNDNOTE ---
wound photo: right lower leg
[2024-10-10] MEDS: Budesonide Respules 0.5 MG/2 ML AMPUL.NEB. INHALATION (07:29)
[2024-10-10] MEDS: Cholecalciferol (Vit D3) 125 MCG CAPSULE (5,000 UNITS) PO (07:53)
[2024-10-10] MEDS: Lactobacillis Acidophilus 1 CAP PO ×4 (07:53→21:31)
[2024-10-10] MEDS: Glucerna Shake 120 ML LIQUID PO ×2 (07:54→11:57)
[2024-10-10] MEDS: Zinc Sulfate 50 mg zinc (220 mg) ORAL capsule PO (10:05)
[2024-10-10] MEDS: Insulin Glargine-YFGN 100 UNIT/ML Pen 16 UNIT SC (10:07)
--- NOTE | 2024-10-10 10:40 | PCM.PN.ID ---
Physical Exam Narrative Leg still sore, no fever, no n/v/d. Const alert and no apparent distress General Appearance: cooperative Resp normal air movement and clear to auscultation bilaterally Cardio regular rate and regular rhythm GI soft to palpation, non-tender and non-distended Skin Skin Narrative: RLE wrapped ID ID: Route of nutrition/ use of supplements: [] Nutritional Intake: [] IV Site: [] Salazar Catheter: [] Assessment & Plan Assessment/Plan (1) Cellulitis of right leg: PLAN: H/o hives with PCN but tolerated keflex well. No purulence seen. Cont po doxy and cefazolin. Will follow (2) Failure of outpatient treatment: (3) Chronic kidney disease: QUALIFIERS: Chronic kidney disease stage: stage 4 (GFR 15-29) Qualified Code(s): N18.4 - Chronic kidney disease, stage 4 (severe)
--- NOTE | 2024-10-10 11:34 | CASEMGMT ---
Addendum entered by Prince Cabrera 10/10/24 11:53: [facility] returns call and states that they are able to resume care on (10/12). Original Note: Dr Li reports that the pt will likely DC tomorrow. TC to [facility], no answer. VM left. Dr Titus placed an order for the pt to follow up at the [facility] for the pt's RLE wound. RN CM to the pt room at this time. Pt states that she is agreeable and that she has transportation. Pt denies a preference on the time of day. TC to the [facility] to schedule follow up appt. No answer, VM left. At this time, the pt states that she feels safe discharging back to [facility] tomorrow. Pt reports that her aide is there to provide support M-F. Anticipate that [facility] will be able to assist with wound care as well as the [facility]. Per ID, pt will likely continue with PO ABX. Pt is currently adequately saturating at baseline O2 orders. Pt denies further questions or concerns at this time. Tentative plan: Return to [facility] with [facility], Palliative Care, [facility] services, additional oxygen through [facility], and follow up at the [facility].
[2024-10-10] MEDS: Cefazolin 2 GM in 0.9% Normal Saline (100mL Bag) 100 ML IV ×2 (11:56→23:00)
--- NOTE | 2024-10-10 14:44 | CASEMGMT ---
Dr. Li states that he recently talked to Dr Titus who reports that the pt will require dressing changes 2x/day initially. RN CM to the pt room at this time. Pt states that she does not want to go to a SNF and that she would prefer her sister to assist with dressing changes at home, if she is willing. The [facility] will also be able to assist with wound care, but not as frequent as needed. TC to the pt's sister, Elvira. Elvira states that she watched the dressing change today and that she is willing to help with the dressing changes 2x/day after the pt discharges. Collaborated with the pt's RN and the wound RN, Jayna. Jayna states that she will provide the pt's sister with a final teach tomorrow morning. Elvira updated and states that she will come into the hospital tomorrow morning for the education needed regarding the pt's dressing changes. Pt and pt's sister deny further questions or concerns at this time.
--- NOTE | 2024-10-10 15:04 | PCM.PN.HOSP ---
Reason for Visit Chief Complaint: Worsening RLE Cellulitis. Subjective Subjective Patient was seen and examined today, her right lower leg was debrided by plastic surgery today, they do not feel the patient needs any additional debridement. According to case management, patient's sister will be taught to change the patient's dressing on a twice a day basis. Objective Data Objective Data Vital Signs: Vital Signs Temp Pulse Resp BP Pulse Ox O2 Del Method O2 Flow Rate 98.4 F 78 18 141/58 H 95 Nasal Cannula 2 10/10/24 11:02 10/10/24 11:02 10/10/24 11:02 10/10/24 11:02 10/10/24 12:30 10/10/24 14:00 10/10/24 14:00 Oxygen Flow Rate (L/min) 2 Oxygen Delivery Method Nasal Cannula Weight: 104.8 kg Body Mass Index (BMI) 40.9 Intake & Output: Intake and Output for Last 24 Hours 10/08/24 10/09/24 10/10/24 23:59 23:59 23:59 Intake Total 640 / 790 2014 220 / 220 Balance 640 / 790 2014 220 / 220 Lab / Micro Data 10/09/24 07:05 10/09/24 07:05 Labs: Laboratory Results - last 24 hr 10/09/24 16:40: POC Glucose 143 H 10/09/24 23:27: POC Glucose 189 H 10/10/24 06:23: POC Glucose 149 H 10/10/24 06:36: Phosphorus 4.6 H 10/10/24 11:51: POC Glucose 167 H Physical Exam Narrative alert, oriented x3 and no apparent distress General Appearance: cooperative, well kempt and well developed Orientation / Consciousness: awake, oriented to person, oriented to place and oriented to time HEENT normocephalic, head/scalp atraumatic and moist oral mucous membranes Eyes PERRL, EOMs intact bilaterally and conjunctivae normal Neck supple, no JVD and thyroid normal General: trachea midline Resp normal respiratory effort and clear to auscultation bilaterally Auscultation: Negative for rales, rhonchi or wheezes Cardio regular rate, regular rhythm, no murmurs, no rub and no gallops GI normal to inspection, nondistended, normoactive bowel sounds, soft to palpation, non-tender and non-distended Extremity Extremity Narrative: There is an area of ecchymosis and what appears to be necrotic skin over the lateral aspect of the patient's right mid schwartz Skin Skin Narrative: There is a large area of ecchymosis and what appears to be necrotic skin over the patient's right lateral mid schwartz area Neuro oriented x3, CN's II-XII intact bilaterally, moves all extremities, no focal motor deficits and no sensory deficits noted Sensorium / Orientation: awake and alert Speech: speech normal Psych affect normal Assessment & Plan Assessment/Plan (1) Cellulitis of right leg: (2) Hematoma of right lower leg: PLAN: Plan 1. Hematoma of the right schwartz area with possible necrotic tissue-the area was debrided by plastic surgery today, patient will be reevaluated tomorrow for possible discharge #2 cellulitis of the right lower leg-patient is being seen by infectious diseases and they are adjusting antibiotic coverage #3 bipolar disorder-complicates care, management, recovery, and prognosis, patient will remain on her current medication #4 chronic obstructive pulmonary disease-patient remains on aerosol treatments #5 paroxysmal atrial fibrillation-I have decided to stop the patient's Eliquis for now, she will restart the Eliquis when she is discharged home #6 hypothyroidism-patient is on Synthroid #7 type 2 diabetes-patient's blood sugars will be monitored, sliding scale insulin will be administered as needed #8 chronic hypoxic respiratory failure-patient uses home O2 while sleeping Total clinical time spent by myself addressing the patient's medical issues, reviewing all of her data, and collaborating with patient's care team: 35 minutes Charges/Coding Visit Charges Inpatient E&M: 48211 Subs Hosp L2
[2024-10-10] MEDS: 0.9% Saline Lock 10 ML Syringe IV (21:25)
[2024-10-10] MEDS: Divalproex (ER) 500 MG Tablet PO (21:31)
[2024-10-11 02:00] VITALS: O2SAT 97
[2024-10-11 03:00] VITALS: BP 99/50; PULSE 60; RESP 16; TEMP 36.7; O2SAT 100
[2024-10-11 05:39] VITALS: BMI 40.8
[2024-10-11] MEDS: Budesonide Respules 0.5 MG/2 ML AMPUL.NEB. INHALATION (07:09)
[2024-10-11 07:30] VITALS: PULSE 71; RESP 17
[2024-10-11] MEDS: Lactobacillis Acidophilus 1 CAP PO (08:07)
[2024-10-11] MEDS: Cholecalciferol (Vit D3) 125 MCG CAPSULE (5,000 UNITS) PO (08:07)
[2024-10-11] MEDS: Zinc Sulfate 50 mg zinc (220 mg) ORAL capsule PO (08:07)
[2024-10-11] MEDS: Insulin Glargine-YFGN 100 UNIT/ML Pen 16 UNIT SC (08:08)
--- NOTE | 2024-10-11 08:09 | PCM.PN.SRG ---
Subjective Subjective Afebrile, stable VS Pain with dressing changes, but doing well overall. Objective Data Objective Data Vital Signs: Vital Signs Temp Pulse Resp BP Pulse Ox O2 Del Method O2 Flow Rate 98.1 F 60 16 99/50 L 100 Nasal Cannula 2 10/11/24 03:00 10/11/24 03:00 10/11/24 03:00 10/11/24 03:00 10/11/24 03:00 10/11/24 03:00 10/11/24 03:00 Oxygen Flow Rate (L/min) 2 Oxygen Delivery Method Nasal Cannula Weight: 230 lb 13.184 oz Body Mass Index (BMI) 40.8 Intake & Output: Intake and Output for Last 24 Hours 10/09/24 10/10/24 10/11/24 23:59 23:59 23:59 Intake Total 2014 1230 / 1230 Balance 2014 1230 / 1230 Lab / Micro Data 10/09/24 07:05 10/09/24 07:05 Labs: Laboratory Results - last 24 hr 10/10/24 11:51: POC Glucose 167 H 10/10/24 16:55: POC Glucose 132 H 10/10/24 22:54: POC Glucose 126 H 10/11/24 06:21: POC Glucose 124 H Physical Exam Narrative RIGHT LOWER EXTREMITY Superficial hematoma on the right medial calf region, surrounding cellulitis (but much improved warmth and induration since yesterday.WTD dressings reapplied. No crepitus/ascending infection. Leg compartments are all soft Motor: 5+ plantarflexion and dorsiflexion Vascular: 2+ DP and PT pulses Sensation: Intact on the foot and ankle to light touch Assessment & Plan Assessment/Plan (1) Hematoma of right lower leg: PLAN: Plan Wet-to-dry dressings twice daily (Dakins) Agree with continued treatment for surrounding cellulitis, but no purulent fluid collections at this time. Dressing changes should clean up the area. Anticipate conservative management with continued twice daily dressing changes to deride away the dried blood and promote granulation/healing. No surgery planned. [facility] will follow Outpatient follow up Wednesday in the wound care center. Charges/Coding Visit Charges Inpatient E&M: 25944 Subs Hosp L1
--- NOTE | 2024-10-11 08:18 | WOUNDNOTE ---
wound photo: right lower leg
[2024-10-11 08:47] VITALS: O2SAT 93
--- NOTE | 2024-10-11 09:54 | WOUNDNOTE ---
Called and verified with Annel at the wound healing center, patient has appt with Dr Titus at 0900 on 10/16/24. Pt aware.
[2024-10-11 10:00] VITALS: BP 107/89; PULSE 109; RESP 18; TEMP 36.6; O2SAT 95
--- NOTE | 2024-10-11 10:09 | CASEMGMT ---
Addendum entered by Prince Cabrera 10/11/24 10:47: Signed DC instructions faxed to [facility] at this time. No further needs identified. Original Note: Dr Li states that that pt will be discharging today. See Jayna Wound RN notes regarding pt's wound care plan and follow up Wednesday @ [facility]. TC to the pt's [facility] Betty DELUNA to update on DC plan. No answer, VM left. E-Mail sent to [facility] (regarding pt's Palliative Care) to notify of DC plan. TC to [facility]. [facility] updated on DC plan and confirms they are able to resume care tomorrow (10/12). RN CM to the pt's room at this time. Pt's sister is at bedside and brought the pt's portable oxygen. Pt and pt's sister updated on the DC plan. Pt states that she feels safe with this plan and deny any further questions, concerns, or needs at this time. Finalized plan: Return to [facility] with [facility] HH, Palliative, [facility] services, follow up Wednesday @ [facility], and continual oxygen supplied through [facility].
--- NOTE | 2024-10-11 10:19 | PCM.DC ---
Discharge Instructions DC O2, CPAP, BIPAP needs Home O2 Discharge instructions: Yes Type of respiratory needs?: Oxygen Oxygen frequency: Continuous Continuous oxygen liters per minute: 2 L Dressing / Incision Discharge Activity: Return to Normal Activity Weight Bearing Status: Full weight bearing Follow Up Care Test Results: Test results from this visit will be discussed in further detail at your follow-up appointment, if applicable. Discharge Plan Admission Admit Date/Time: 10/08/24 21:33 Primary Reason for Your Visit: cellulitis right leg Attending Provider: Eric Treadwell Primary Care Provider: Eric Marion [facility] Consulting Providers: Elliot Zuniga; Zhang Conde; Zhang Titus Discharge Orders/Prescriptions Prescriptions: New doxycycline monohydrate 100 mg Capsule 100 mg PO BID Qty: 11 0RF oxycodone 5 mg Tablet 10 mg PO Q6H PRN (Reason: Pain Score 1-10) 7 Days Qty: 20 0RF Continued gabapentin 300 mg capsule 300 mg PO TID fluticasone propionate 50 mcg/actuation spray,suspension 1 spray intranasal DAILY PRN (Reason: allergy symptoms) Patient Comments: instill 2 sprays in each nostril daily nystatin 100,000 unit/gram powder 1 applic topical BID clotrimazole-betamethasone 1-0.05 % cream 1 applic topical BID epinephrine [EpiPen 2-Wayne] 0.3 mg/0.3 mL auto-injector 0.3 mg IM ONCE Rx Instructions: as a single dose; may repeat once meloxicam 7.5 mg tablet 7.5 mg PO QDAY PRN (Reason: pain) Patient Comments: STOP 5-7 DAYS PRIOR TO OR Jardiance 25 mg tablet 25 mg PO QAM Patient Comments: PCP WANTS PT TO STOP 3-4 DAYS PRIOR TO SURGERY pantoprazole 40 mg tablet,delayed release (DR/EC) 40 mg PO QDAY Linzess 145 mcg capsule 145 mcg PO QAM Qty: 60 2RF hydrocortisone 2.5 % cream 1 applic topical BID PRN (Reason: itching) spironolactone 25 mg tablet 25 mg PO DAILY Qty: 30 6RF trazodone 100 mg tablet 100 mg PO QHS Patient Comments: TAKE 1 TABLET BY MOUTH EVERY DAY AT NIGHT aripiprazole 20 mg tablet 20 mg PO QHS Patient Comments: TAKE ONE TABLET BY MOUTH DAILY AT 9AM divalproex 500 mg tablet extended release 24 hr 500 mg PO QHS levothyroxine 100 mcg tablet 100 mcg PO DAILY insulin glargine [Lantus Solostar U-100 Insulin] 100 unit/mL (3 mL) insulin pen 22 unit subcut DAILY docusate sodium [Colace] 100 mg capsule 100 mg PO BID PRN (Reason: constipation) methocarbamol 500 mg tablet 500 mg PO 4X/DAY PRN (Reason: Muscle pain/spasm) Qty: 40 0RF atropine 1 % drops 1 drp PO BID Rx Instructions: administer to back of throat/tongue and swallow Lubricant Eye (PG-PEG 400) 0.4-0.3 % drops 1 drp EACH EYE DAILY PRN (Reason: dry eye(s)) furosemide [Lasix] 40 mg tablet 40 mg PO 1XD Qty: 1 0RF Trelegy Ellipta 100-62.5-25 mcg blister with device 1 inh inhalation Q24H Qty: 60 11RF atorvastatin [Lipitor] 10 mg tablet 10 mg PO QDAY Qty: 90 1RF Patient Comments: takes 2 tabs 20mg total simethicone 125 mg capsule 125 mg PO QD-BID PRN (Reason: abdominal distention) Qty: 20 0RF ondansetron 4 mg tablet,disintegrating 4 mg PO Q8H Qty: 10 0RF Held Eliquis 5 mg tablet 5 mg PO BID Hold Instructions: Resume on 10/15/24. Resume on 10/15/2024 Patient Comments: STOP 2-3 DAYS PRIOR TO SURGERY Discontinued oxycodone 5 mg capsule 5 mg PO Q8H PRN (Reason: pain) 3 Days Qty: 9 0RF hydrocodone-acetaminophen 5-325 mg tablet 1 tab PO Q6H PRN (Reason: pain) 5 Days Qty: 20 0RF Referrals / Follow Up: Zhang Titus MD [Med Staff - Active Staff] - 10/16/24 9:00 am ( [facility]) Eric Marion, BLOOD BANK CUSTODIAN-C [Primary Care Provider] - Disposition Disposition (needs filled in before D/C Order can be placed): Home Health Service
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
== END 2024-10-11 11:37 | disposition home health service (06) | DRG 603 ==
LOC: ED 20:05 → MS3 21:35
PROVIDERS: Physician Assistant; Admitting Provider Internal Medicine; Emergency Provider Emergency Medicine; PCP Nurse Practitioner Family; Visit Provider Internal Medicine
DX: L03.115 Cellulitis of right lower limb (principal); J96.11 Chronic respiratory failure with hypoxia; I13.0 Hypertensive heart and chronic kidney disease with heart failure and stage 1 through stage 4 chronic kidney disease, or unspecified chronic kidney disease; I50.32 Chronic diastolic (congestive) heart failure; F25.0 Schizoaffective disorder, bipolar type; E11.22 Type 2 diabetes mellitus with diabetic chronic kidney disease; E03.9 Hypothyroidism, unspecified; B95.62 Methicillin resistant Staphylococcus aureus infection as the cause of diseases classified elsewhere; Z66 Do not resuscitate; J44.9 Chronic obstructive pulmonary disease, unspecified; N18.32 Chronic kidney disease, stage 3b; Z68.39 Body mass index [BMI] 39.0-39.9, adult; I48.0 Paroxysmal atrial fibrillation; S80.11XA Contusion of right lower leg, initial encounter; E11.40 Type 2 diabetes mellitus with diabetic neuropathy, unspecified; I25.10 Atherosclerotic heart disease of native coronary artery without angina pectoris; F17.210 Nicotine dependence, cigarettes, uncomplicated; K21.9 Gastro-esophageal reflux disease without esophagitis; Z79.4 Long term (current) use of insulin; E78.00 Pure hypercholesterolemia, unspecified; E11.51 Type 2 diabetes mellitus with diabetic peripheral angiopathy without gangrene; F17.290 Nicotine dependence, other tobacco product, uncomplicated; I25.2 Old myocardial infarction; Z79.85 Long-term (current) use of injectable non-insulin antidiabetic drugs; E66.812 Obesity, class 2; W22.8XXA Striking against or struck by other objects, initial encounter; Z79.01 Long term (current) use of anticoagulants; Z79.51 Long term (current) use of inhaled steroids; Z79.84 Long term (current) use of oral hypoglycemic drugs; Z79.890 Hormone replacement therapy; Z79.899 Other long term (current) drug therapy
CPT/HCPCS: 36415; 80048; 80053; 80164; 81001; 82962; 83605; 83735; 84100; 84443; 85025; 87040; 94640; 94668; 97110; 97161; 97166; 99285; J2185; A4216

== ENCOUNTER → 2024-10-20 | Outpatient (CLI) | payer MEDICARE, MEDICAID, SELFPAY ==
[2024-10-20 11:27] LABS: Anion Gap 14 (5-15); BUN 23 mg/dL (4-19); BUN/Creat Ratio 15.5 RATIO (10-20); Calcium,Total 10.2 mg/dL (7.6-11.0); Carbon Dioxide 30.7 mmol/L (21.0-32.0); Chloride 96 mmol/L (98-108); Glucose 131 mg/dL (70-99); Potassium 4.0 mmol/L (3.3-5.1)
--- NOTE | 2024-10-20 18:50 | STRESSREP ---
Stress Test Report Pharmacologic myocardial perfusion stress test. 63-year-old female with a history of chest pain. Resting EKG demonstrates atrial fibrillation flutter with a rate of 68 bpm. Resting blood pressure is 118/60 mmHg. 0.4 mg of regadenoson was infused per usual protocol followed by rapid intravenous saline flush injection. Continuous EKG monitoring was performed. The maximum heart rate was 99 bpm which was 63% % of max impacted heart rate the maximum workload was 1 metabolic equivalent. At rest there were no ST or T wave changes noted to suggest ischemia and at peak infusion nonspecific ST changes were noted which did not meet the criteria for ischemia. No clinical angina is noted. The final blood pressure was 116/50 mmHg. Myocardial perfusion protocol. 14 point mCi of technetium 99m sestamibi was injected at rest. 0.4 mg of regadenoson was infused per usual protocol. At peak infusion 45 mCi of technetium 99m sestamibi was injected stress images were obtained stress and rest images were reconstructed and compared in the short axis vertical long and horizontal long axis. Gated images were also obtained. Perfusion SPECT analysis: Review of the stress images demonstrate normal uptake of tracer noted in all areas of the myocardium. The resting images similar demonstrated normal uptake of tracer noted in all areas of the myocardium. No areas of reversibility are noted to suggest ischemia and no previous infarct is noted. Gated SPECT analysis: The gated ejection fraction is 76%. Conclusion: Normal pharmacologic myocardial perfusion stress test. Preserved ejection fraction.
== END | disposition home or self-care (01) ==
PROVIDERS: Nurse Practitioner Gerontology; PCP Nurse Practitioner Family; Referring Provider Physician Assistant Medical; Visit Provider Physician Assistant Medical
DX: R60.0 Localized edema (principal); N18.4 Chronic kidney disease, stage 4 (severe); Z51.81 Encounter for therapeutic drug level monitoring; Z79.899 Other long term (current) drug therapy; R07.9 Chest pain, unspecified
CPT/HCPCS: 36415; 78452; 80048; 93017; A9500; A4216; J2785

== ENCOUNTER 2024-10-30 09:30 | Outpatient (RCR) | payer MEDICARE, MEDICAID, SELFPAY ==
[2024-10-16 09:51] VITALS: BP 125/57; PULSE 71; RESP 18; TEMP 36.1
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
--- NOTE | 2024-10-17 09:23 | WC ---
PHOTO-RIGHT MED 10/16/24
--- NOTE | 2024-10-25 12:25 | ART_ITS ---
Reason For Study Reason For Study: RLE Wound Procedure A bilateral lower extremity continuous wave Doppler with analog waveform analysis,segmental pressures,and ankle brachial indexes without exercise. Left Segmental Pressures Left posterior tibial artery = 133mmHg. Left dorsalis pedis artery = 128mmHg. Left digit = 124 mmHg. The left posterior tibial artery waveforms are triphasic. The left dorsalis pedis waveforms are triphasic. Right Segmental Pressures Right brachial= 125mmHg. Right posterior tibial artery = 125mmHg. Right dorsalis pedis artery = 133mmHg. Right digit = 65 mmHg. The right posterior tibial artery waveforms are triphasic. The right dorsalis pedis waveforms are biphasic. Indices The right ankle brachial index by the posterior tibial artery is 1.00. The right ankle brachial index by the dorsalis pedis is 1.06. The right digital-brachial index is 0.52. The left ankle brachial index by the posterior tibial artery is 1.06. The left ankle brachial index by the dorsalis pedis is 1.02. The left digital-brachial index is 0.99. VL/Lower Ext Art Exam w/o Exercis Interpretation Summary Triphasic and biphasic Doppler waveforms are noted at ankle level on the right. Triphasic Doppler waveforms are noted at ankle level on the left. Pulse-volume recordings appear satisfactory at thigh, calf, and digital levels bilaterally. Resting ankle-brachial indices are normal bilaterally. The right digital-brachi al index is mildly diminished. The left digital-brachial index is normal. Arterial flow appears normal at ankle level on the right. There is evidence of mild arterial occlusive disease at digital level on the right. There is no evidence of significant arterial occlus ken disease in the left lower extremity. Ordering Physician: Zhang Titus Referring Physician: Eric Marion Performed By: Vick Acevedo RVT
--- NOTE | 2024-10-25 12:25 | VDLE_ITS ---
Reason For Study Reason For Study: RLE Wound RIGHT LEFT GSV is normal. Unable to visualize Lt GSV. Pt has HX of ablation. CFV is compressible, spontaneous, phasic, competent CFV is compressible, spontaneous, phasic, competent, and demonstrates normal augmentation. and demonstrates normal augmentation. FV is compressible, spontaneous, phasic, competent FV is compressible, spontaneous, phasic, competent and demonstrates normal augmentation. and demonstrates normal augmentation. POP V is compressible, spontaneous, phasic, competent POP V is compressible, spontaneous, phasic, competent and demonstrates normal augmentation. and demonstrates normal augmentation. T/P Trunk is compressible. T/P Trunk is compressible. Unable to visualize prox and mid calf vessels due to PTV is compressible. bandages and open wound. LT PerV is compressible. PTV and Torey V appear compressible at distal calf. Procedure This is a venous duplex using B-mode, color flow and spectral Doppler. Exam performed in department. Technically difficult study due to patient involuntary movements and intolerance to compressions. VL/Venous Duplex US - Juan Carlos Extrem Interpretation Summary Deep veins of the lower extremities are bilaterally patent and compressible seg mentally. There is no evidence of deep vein thrombosis on either side. Valvular competence appears intact within the p roximal deep venous systems bilaterally. The right great saphenous vein appears patent and compressible segmentally. The deep veins of the right proximal and mid-calf were not visualized due to the presence of wound bandages. The left gr eat saphenous vein was not visualized. The patient has a history of venous ablation. Ordering Physician: Zhang Titus Referring Physician: Eric Marion Performed By: Vick Acevedo RVT
[2024-10-30 09:22] VITALS: BP 129/51; PULSE 57; RESP 18; TEMP 35.8
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
== END 2024-11-05 23:59 | disposition home or self-care (01) ==
LOC: WC 09:30
PROVIDERS: PCP Nurse Practitioner Family; Referring Provider Surgery Plastic and Reconstructive Surgery; Visit Provider Surgery Plastic and Reconstructive Surgery
DX: S81.801A Unspecified open wound, right lower leg, initial encounter (principal); V00.818A Other accident with wheelchair (powered), initial encounter
CPT/HCPCS: 11042; 11045; 93923; 93970; 99213; 99214; G0463

== ENCOUNTER 2024-12-04 09:30 | Outpatient (RCR) | payer MEDICARE, MEDICAID, SELFPAY ==
[2024-11-13 08:47] VITALS: BP 129/76; PULSE 71; RESP 18; TEMP 36.1
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
[2024-11-27 08:23] VITALS: BP 117/74; PULSE 66; RESP 18; TEMP 35.7
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
--- NOTE | 2024-11-28 10:08 | WC ---
PHOTO-RIGHT MED 11/27/24
[2024-12-04 09:44] VITALS: BP 140/70; PULSE 69; RESP 18; TEMP 36.3
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
--- NOTE | 2024-12-05 10:15 | WC ---
PHOTO-MED LEG 12/04/24
--- NOTE | 2024-12-05 10:19 | WC ---
PHOTO-RIGHT MED LEG 12/04/24
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
== END 2024-12-05 23:59 | disposition home or self-care (01) ==
LOC: WC 09:30
PROVIDERS: PCP Nurse Practitioner Family; Referring Provider Surgery Plastic and Reconstructive Surgery; Visit Provider Surgery Plastic and Reconstructive Surgery
DX: S80.11XA Contusion of right lower leg, initial encounter (principal); I48.91 Unspecified atrial fibrillation; E11.9 Type 2 diabetes mellitus without complications; V00.818A Other accident with wheelchair (powered), initial encounter
CPT/HCPCS: 11042; 11045; 15271; Q4186

== ENCOUNTER 2025-01-01 09:45 | Outpatient (RCR) | payer MEDICARE, MEDICAID, SELFPAY ==
--- NOTE | 2024-12-08 12:08 | WC ---
pts aide called into WC stating the pts wound did not look right. pt came in for NV. maria esther wrap and mepilex boarder removed. epimesh still intact. some med drainage noted to mepilex. around the wound at ant schwartz some redness was noted. took measurements around calf and ankle. calf measurement has decreased but the ankle measurement went from 24cm to 27cm. no open areas noted around the reddened area. suggested pt and aide go to the ER to see if there was possibly an infection pt doesnt want to go to ER at this time.. instructed to keep right leg elevated. denies fever. instructed if fever to go to ER. pt understands to keep eye on it and any worse changes to go to ER
[2024-12-11 09:20] VITALS: BP 111/61; PULSE 66; RESP 18; TEMP 35.7
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
--- NOTE | 2024-12-12 11:35 | WC ---
PHOTO-RIGHT MED LEG 12/11/24
[2024-12-18 09:11] VITALS: BP 133/75; PULSE 69; RESP 18; TEMP 35.6
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
--- NOTE | 2024-12-20 13:51 | WC ---
PHOTO-RIGHT MED LEG 12/18/24
[2024-12-28 09:36] VITALS: BP 103/69; PULSE 70; RESP 18; TEMP 35.9
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
--- NOTE | 2024-12-28 13:42 | WC ---
PHOTO: RIGHT MEDIAL LEG 12/28/24
--- NOTE | 2024-12-29 09:38 | WC ---
PHOTO-RIGHT MED LEG 12/28/24
[2025-01-01 09:43] VITALS: BP 129/78; PULSE 75; RESP 18; TEMP 36.1
== END 2025-01-01 10:10 | disposition home or self-care (01) ==
LOC: WC 09:45
PROVIDERS: PCP Nurse Practitioner Family; Referring Provider Surgery Plastic and Reconstructive Surgery; Visit Provider Surgery Plastic and Reconstructive Surgery
DX: S80.11XA Contusion of right lower leg, initial encounter (principal); I48.91 Unspecified atrial fibrillation; E11.9 Type 2 diabetes mellitus without complications; V00.818A Other accident with wheelchair (powered), initial encounter
CPT/HCPCS: 11042; 15271; 99212; Q4186; G0463

== ENCOUNTER 2025-01-03 14:45 | Emergency (ER) | payer MEDICARE, MEDICAID, SELFPAY ==
[2025-01-03 14:46] VITALS: BP 112/72; PULSE 69; RESP 14; TEMP 36.1; O2SAT 93; BMI 38.1
--- NOTE | 2025-01-03 14:52 | EKG12_ITS ---
Test Reason : CP
--- NOTE | 2025-01-03 15:05 | ED.VIS.CHEST ---
HPI History of Present Illness Chief Complaint: Chest Pain Detail of Chief Complaint: Left sternal chest pressure Informant: patient Onset/Context/Timing Onset: Yesterday (1600) Activity at onset: sudden Timing: Continuous Quality: Positive for Pressure Location: Left Parasternal Current Severity: Moderate Maximum Severity: Severe Worsened By: Nothing Relieved By: Nothing Associated Symptoms: Positive for Dyspnea; Negative for Nausea, Vomiting, Diaphoresis, Cough, Fever, Lightheadedness, Acid Reflux or Palpitations Narrative Narrative: Patient is a 64-year-old female. She has history of coronary artery disease, heart failure with preserved ejection fraction, obstructive sleep apnea, kidney disease, dyslipidemia, and tried to treat her chronic back pain due to spinal stenosis L4-5, smoker is greater than 20 years, COPD, on long-term anticoagulant (see apixaban) with history of sudden . She arrived by ambulance because of chest pressure left parasternal that started yesterday at 1600 while sitting playing her computer games. The pain has been constant. There are no alleviating exacerbating factors. She does endorse shortness of breath. She denies fever, chills night sweats. She denies headache, visual, ocular auditory symptoms. She denies trouble with speech or swallowing. She states the chest pain does radiate through to her back. It does not radiate to her shoulders or extremities. She has a chronic cough. It is unchanged. She denies GI symptoms. She does have complaint of lymphedema. The lymphedema is worse at night compared to the day/morning when she awakes. Prior Similar Symptoms: Yes and With Prior Angina CVD Risk Factors: Positive for Hypertension, Diabetes, Hypercholesterolemia, Family History 1' </=55 and Smoking PE Risk Factors: Negative for Recent Travel/Surgery, Recent Immobilization, Prior DVT or PE, Cancer or OCP + Smoking + >/=35 TAD Risk Factors: Positive for Hypertension; Negative for Marfan's Syndrome or Family History [facility] Medical History Obesity (BMI 30-39.9) Chronic anticoagulation Failure of outpatient treatment Cellulitis of right leg Hx of type 2 diabetes mellitus Hematoma of right lower leg Acute hypokalemia Diverticulitis Chronic kidney disease Elevated brain natriuretic peptide (BNP) level Hypoxia Elevated troponin Heart failure History of diabetes mellitus Chronic venous insufficiency History of atrial fibrillation Chronic anticoagulation Edema, peripheral Left shoulder pain Wears hearing aid Post-menopausal Depression Anxiety History of steroid therapy Walker as ambulation aid Kidney stones Arthritis Back pain History of IBS Former smoker COPD (chronic obstructive pulmonary disease) Shortness of breath on exertion Thyroid disease History of heart attack History of stress test History of echocardiogram Low platelet count Anemia History of ESBL E. coli infection Morbid obesity with BMI of 40.0-44.9, adult Congestive heart failure Peripheral edema History of CHF (congestive heart failure) History of atrial fibrillation History of hypertension Chest pain of uncertain etiology Bradycardia History of tobacco use History of diabetes mellitus, type II History of COPD Acute hypotension Pulmonary hypertension, secondary Abdominal ascites Diverticulitis large intestine w/o perforation or abscess w/bleeding Pericardial effusion with cardiac tamponade Chronic kidney disease History of cardiac arrest Chest pain Wears glasses Wears dentures Substance abuse Alcohol use Rash Gout High cholesterol PVD (peripheral vascular disease) Easy bruising Seizures Dietary restriction Gastric reflux Injury of back Vapes nicotine containing substance Fall History of pain when walking History of edema Insomnia Major depression On home oxygen therapy Emphysema, unspecified Neuropathy Cardiology follow-up encounter History of ulceration DKA (diabetic ketoacidosis) Cardiac arrest skilled nursing current use of anticoagulant Encounter for infusaport central venous catheter removal Lichen sclerosus Macular degeneration Essential hypertension Decreased left ventricular function Paroxysmal atrial fibrillation Diverticulosis Migraine Iron deficiency anemia COPD (chronic obstructive pulmonary disease) Port-A-Cath in place Acid reflux IBS (irritable bowel syndrome) CHF (congestive heart failure) Neuropathy Kidney failure Hypothyroid Schizoaffective disorder, bipolar type Emphysema lung Diabetes Heart attack Home Medications ?Medication ?Instructions ?Recorded ?Last Taken ?Type apixaban 5 mg tablet (Eliquis) 5 mg PO BID blood thinner 12/24/22 03/15/24 History trazodone 100 mg tablet 100 mg PO QHS sleep 01/01/23 07/26/23 History aripiprazole 20 mg tablet 20 mg PO QHS mental health 03/09/23 03/18/24 History fluticasone propionate 50 1 spray intranasal DAILY PRN 04/27/23 Unknown History mcg/actuation nasal allergy symptoms spray,suspension divalproex 500 mg tablet,extended 500 mg PO QHS seizure 07/25/23 07/27/23 History release 24 hr levothyroxine 100 mcg tablet 100 mcg PO DAILY thyroid 07/25/23 07/27/23 History clotrimazole-betamethasone 1 1 applic topical BID skin 10/18/24 Unknown History %-0.05 % topical cream irritation empagliflozin 25 mg tablet 25 mg PO QAM diabetes 12/24/23 03/17/24 History (Jardiance) epinephrine 0.3 mg/0.3 mL 0.3 mg IM ONCE allergic reaction 12/24/23 Unknown History injection, auto-injector (EpiPen 2-Wayne) meloxicam 7.5 mg tablet 7.5 mg PO QDAY PRN pain 12/24/23 Unknown History pantoprazole 40 mg tablet,delayed 40 mg PO QDAY acid reflux 12/24/23 Unknown History release nystatin 100,000 unit/gram topical 1 applic topical BID skin 01/06/24 Unknown History powder irritation docusate sodium 100 mg capsule 100 mg PO BID PRN constipation 03/07/24 Unknown History (Colace) linaclotide 145 mcg capsule 145 mcg PO QAM bowels #60 caps 03/10/24 Unknown Rx (Linzess) methocarbamol 500 mg tablet 500 mg PO 4X/DAY PRN Muscle 03/16/24 Unknown Rx pain/spasm #40 tabs atropine 1 % eye drops 1 drp PO BID eye health 05/03/24 Unknown History peg 400-propylene glycol 0.4 %-0.3 1 drp EACH EYE DAILY PRN dry eye(s) 05/03/24 Unknown History % eye drops (Lubricant Eye (PG-PEG 400)) hydrocortisone 2.5 % topical cream 1 applic topical BID PRN itching 05/29/24 Unknown History insulin glargine 100 unit/mL (3 22 unit subcut DAILY diabetes 09/21/24 Unknown History mL) subcutaneous pen (Lantus Solostar U-100 Insulin) spironolactone 25 mg tablet 25 mg PO DAILY #30 tabs 09/27/24 Unknown Rx ondansetron 4 mg disintegrating 4 mg PO Q8H #10 tabs 10/05/24 Unknown Rx tablet simethicone 125 mg capsule 125 mg PO QD-BID PRN abdominal 10/05/24 Unknown Rx distention #20 caps furosemide 40 mg tablet (Lasix) 40 mg PO QDAY #30 tabs 10/17/24 Unknown Rx atorvastatin 10 mg tablet (Lipitor) 10 mg PO QDAY high cholersterol 11/23/24 Unknown Rx #30 tabs budesonide 160 mcg-glycopyr 9 2 inh inhalation BID #10.7 grams 11/28/24 Unknown Rx mcg-formot 4.8 mcg/actuation HFA inhaler (Breztri Aerosphere) CPAP - Continuous Positive Airway 12/01/24 Unknown History Pressure([facility] INFORMATIONAL USE ONLY) deutetrabenazine 12 mg 12 mg PO QDAY 12/21/24 Unknown History tablet,extended release 24 hr (Austedo XR) dulaglutide 3 mg/0.5 mL 3 mg (0.5 mL) subcut QWEEK #2 mL 12/21/24 01/03/25 Rx subcutaneous pen injector (Trulicity) gabapentin 300 mg capsule 500 mg PO TID nerve pain 12/21/24 Unknown History linaclotide 290 mcg capsule 290 mcg PO QAM #30 caps 12/26/24 Unknown Rx (Linzess) Allergy/AdvReac Type Severity Reaction Status Date / Time acetaminophen (From Tylenol) Allergy Mild hives Verified 12/26/24 10:00 aspirin Allergy Mild Hives Verified 12/26/24 10:00 erythromycin base Allergy Mild Hives Verified 12/26/24 10:00 Penicillins Allergy Mild Hives Verified 12/26/24 10:00 polyethylene glycol 3350 Allergy Mild Nausea/Vom/ Verified 12/26/24 10:00 (From Miralax) Diarrhea tramadol Allergy Mild Hives Verified 12/26/24 10:00 tomato Allergy Food Verified 12/26/24 10:00 Allergy Family History Mother Heart disease Hypertension Cancer Father Brain aneurysm age 40 CVA (cerebral vascular accident) Cancer Brother Colon cancer Surgical History History of lumbar laminectomy (~03/2024) Hx of surgical procedure History of bilateral knee replacement Hx of vein stripping Hx of toe surgery History of lithotripsy History of delivery History of bilateral cataract extraction History of cholecystectomy H/O: hysterectomy Social History household members: caregiver Smoking Status: Former smoker Tobacco: How many years used: 18 Electronic Cigarette Use: with nicotine second hand exposure: No alcohol intake: never substance use type: does not use caffeine: Yes ROS ROS ED Constitutional Constitutional ED: Denies chills, fever(s), subjective or sweats Eyes Eyes: Reports none ENT ENT ED: Denies rhinorrhea or sore throat Cardiovascular Cardiovascular: Reports as per HPI and orthopnea; Denies paroxysmal nocturnal dyspnea Respiratory/Chest Respiratory/Chest: Reports dyspnea, dyspnea on exertion and orthopnea; Denies cough, paroxysmal nocturnal dyspnea or sputum Gastrointestinal Gastrointestinal: Denies abdominal pain, melena, nausea or vomiting Genitourinary Genitourinary ED: Denies dysuria, hematuria or urinary frequency Musculoskeletal Musculoskeletal: Reports back pain; Denies arthralgias or myalgias Integumentary Denies Abrasions or rash Neurologic Neurologic: Denies headache(s) or paresthesias Psychiatric Psychiatric: Denies anxiety Endocrine Endocrinology: Denies cold intolerance or heat intolerance Hematologic/Lymphatic Hematologic/Lymphatic: Denies easy bleeding or easy bruising EXAM Physical Exam Const Vital Signs: 01/03/25 14:46 01/03/25 14:46 01/03/25 15:46 Temperature 96.9 F L Temperature Source Axillary Pulse Rate 69 58 L Respiratory Rate 14 16 Respiratory Effort Normal Non-Labored Blood Pressure 112/72 99/58 L Blood Pressure Mean 85 71 Pulse Ox 93 98 Oxygen Delivery Method Room Air 01/03/25 16:00 01/03/25 17:00 01/03/25 17:58 Temperature Temperature Source Pulse Rate 58 L 58 L 58 L Respiratory Rate 16 14 18 Respiratory Effort Blood Pressure 108/68 92/69 88/53 L Blood Pressure Mean 81 76 64 Pulse Ox 98 100 99 Oxygen Delivery Method Room Air Positive well nourished and well developed Constitutional Narrative: Patient with resting tremor. This is chronic. Patient appears in no distress. Vital signs are normal. Prehospital EKG was sent. There was significant mount artifact. No interpretation was derived. General Appearance ED: well developed and NAD; Negative for pallor HEENT Reports moist mucous membranes normocephalic and atraumatic Eyes PERRL and EOMs intact bilaterally General Eye ED: Negative for pale conjunctiva or scleral icterus Neck no lymphadenopathy, supple and no JVD Chest Wall inspection of chest normal and palpation of chest normal Resp normal respiratory effort and clear to auscultation bilaterally Cardio regular rate, regular rhythm, S1 normal heart sound, S2 normal heart sound and no murmurs Peripheral Pulses: pulses 2+ throughout GI normal to inspection, nondistended, normoactive bowel sounds, soft to palpation, non-tender, non-distended and no masses; Negative for hepatosplenomegaly Back/Spine no CVA tenderness and no thoracic nor lumbar tenderness Extremity General Extremety ED: Yes edema General Extremity: edema Neuro oriented x3, CN's II-XII intact bilaterally and no sensory deficits noted Sensorium / Orientation: awake and alert Skin no rashes or lesions noted and no wounds General Skin Exam: Negative for jaundice or pallor MDM MDM MDM Narrative Medical decision making narrative: Need to evaluate for cardiac versus noncardiac. Noncardiac would be chest pain of unknown etiology, GI, pulmonary. EKG was obtained. EKG is suboptimal due to her resting tremor. In my opinion this is a sinus rhythm rate of 72. No further interpretation is attempted. History & Record Review Additional record(s) reviewed:: Prior outpatient record (Note thoroughly from outside facility for lower extremity exam's study reviewed from October 25, 2024. Stress report from October 20 was reviewed. There was a cardiology visit September 27. Isha FangNandomarek's note was reviewed.) and Other (She apparently is followed in the wound center for leg ulcer by Dr. Zhang Titus. She is followed by Dr. Silas Parson for anemia.) Lab Data Attestation: I reviewed the patient's lab results. Lab results narrative: CBC is unremarkable. Electrolyte panel was noted BUN/creatinine of 34 and 1.83 respectively with an estimated GFR of 30. Glucose is elevated 148 with normal CO2 anion gap. Troponins elevated 89. Patient had elevated troponins in the past. Will await for 2-hour troponin. Labs: Laboratory Results - last 24 hr 01/03/25 01/03/25 14:45 16:40 WBC 8.5 RBC 4.32 Hgb 13.1 Hct 40.0 MCV 92.6 MCH 30.3 MCHC 32.8 RDW Std Deviation 45.0 H RDW Coeff of Penny 13.2 Plt Count 170 MPV 10.3 Immature Gran % (Auto) 0.400 Neut % (Auto) 67.7 Lymph % (Auto) 21.2 Clay % (Auto) 6.9 Eos % (Auto) 3.2 Baso % (Auto) 0.6 Absolute Neuts (auto) 5.8 Absolute Lymphs (auto) 1.81 Nucleated RBC % 0 Sodium 137 Potassium 4.1 Chloride 96 L Carbon Dioxide 30.0 Anion Gap 11 BUN 34 H Creatinine 1.83 H Estim Creat Clear Calc 34.10 L Est GFR (MDRD) Non-Af 30 L BUN/Creatinine Ratio 18.5 Glucose 148 H Calcium 9.7 Troponin T High Sens 89 H* Troponin T Hi Sens 2 Hr 86 H* 2-hour troponin is 86 with a delta of -3. Since patient has chronic troponin levels and this is in line with her chronic elevation we will discharge to home to follow-up with her marketing support assistant. Radiography Chest X-Ray - ED: 2 View, Read by ED Physician (Independent reviewed interpreted by me at 1531.), Unchanged, Heart (Cardiac silhouette and size normal.), Lungs (Minimal chronic changes.), Mediastinum (Normal), Bony Structures (Degenerative joint disease noted.), No Acute Disease and Chronic Changes Diagnostic Testing: Clinical Impression(s) from Imaging Studies Chest X-Ray 01/03/25 15:15 IMPRESSION: NO ACUTE FINDINGS. Reading Location: [facility] EKG Initial EKG: Attestation: I personally reviewed and interpreted this EKG as follows: Interpretation: Sinus Rhythm (Rate is 72. CA interval in my opinion is normal. QS duration 74 ms. QT duration of 118 ms. [place] is normal. There is artifact due to her tremor.) Treatment and Re-Evaluation :: She was informed of the results. She was informed that she will be discharged. Patient was happy she was going home. Discharge Plan Triage Chief Complaint: Chest Pain ED Provider: Daquan Quintanilla Dx/Rx/DC Orders Clinical Impression: Chest pressure, Lymphedema, (HFpEF) heart failure with preserved ejection fraction, COPD (chronic obstructive pulmonary disease), Dyslipidemia, Bilateral lower extremity edema Instructions: ED Chest Pain, Uncertain Cause Prescriptions: No Action Eliquis 5 mg tablet 5 mg PO BID Patient Comments: STOP 2-3 DAYS PRIOR TO SURGERY gabapentin 300 mg capsule 500 mg PO TID Rx Instructions: 600 mg at night fluticasone propionate 50 mcg/actuation spray,suspension 1 spray intranasal DAILY PRN (Reason: allergy symptoms) Patient Comments: instill 2 sprays in each nostril daily nystatin 100,000 unit/gram powder 1 applic topical BID clotrimazole-betamethasone 1-0.05 % cream 1 applic topical BID epinephrine [EpiPen 2-Wayne] 0.3 mg/0.3 mL auto-injector 0.3 mg IM ONCE Rx Instructions: as a single dose; may repeat once meloxicam 7.5 mg tablet 7.5 mg PO QDAY PRN (Reason: pain) Patient Comments: STOP 5-7 DAYS PRIOR TO OR Jardiance 25 mg tablet 25 mg PO QAM Patient Comments: PCP WANTS PT TO STOP 3-4 DAYS PRIOR TO SURGERY pantoprazole 40 mg tablet,delayed release (DR/EC) 40 mg PO QDAY Linzess 145 mcg capsule 145 mcg PO QAM Qty: 60 2RF hydrocortisone 2.5 % cream 1 applic topical BID PRN (Reason: itching) spironolactone 25 mg tablet 25 mg PO DAILY Qty: 30 6RF Austedo XR 12 mg tablet extended release 24 hr 12 mg PO QDAY Trulicity 3 mg/0.5 mL pen injector 3 mg subcut QWEEK Qty: 2 5RF Breztri Aerosphere 160-9-4.8 mcg/actuation HFA aerosol inhaler 2 inh inhalation BID Qty: 10.7 11RF Linzess 290 mcg capsule 290 mcg PO QAM Qty: 30 2RF trazodone 100 mg tablet 100 mg PO QHS Patient Comments: TAKE 1 TABLET BY MOUTH EVERY DAY AT NIGHT aripiprazole 20 mg tablet 20 mg PO QHS Patient Comments: TAKE ONE TABLET BY MOUTH DAILY AT 9AM divalproex 500 mg tablet extended release 24 hr 500 mg PO QHS levothyroxine 100 mcg tablet 100 mcg PO DAILY insulin glargine [Lantus Solostar U-100 Insulin] 100 unit/mL (3 mL) insulin pen 22 unit subcut DAILY (DME) CPAP - Continuous Positive Airway Pressure([facility] INFORMATIONAL USE ONLY) See Rx Instructions .Route .MEDSUPPLY Rx Instructions: CPAP 8 CMH2O DME- LINCARE MASK- XS F&P SOLO NASAL MASK docusate sodium [Colace] 100 mg capsule 100 mg PO BID PRN (Reason: constipation) methocarbamol 500 mg tablet 500 mg PO 4X/DAY PRN (Reason: Muscle pain/spasm) Qty: 40 0RF atropine 1 % drops 1 drp PO BID Rx Instructions: administer to back of throat/tongue and swallow Lubricant Eye (PG-PEG 400) 0.4-0.3 % drops 1 drp EACH EYE DAILY PRN (Reason: dry eye(s)) simethicone 125 mg capsule 125 mg PO QD-BID PRN (Reason: abdominal distention) Qty: 20 0RF ondansetron 4 mg tablet,disintegrating 4 mg PO Q8H Qty: 10 0RF furosemide [Lasix] 40 mg tablet 40 mg PO QDAY Qty: 30 11RF atorvastatin [Lipitor] 10 mg tablet 10 mg PO QDAY Qty: 30 11RF Patient Comments: takes 2 tabs 20mg total Primary Care Provider: Eric Marion Referrals: Eric Marion, [facility] [Primary Care Provider, Family Practice] - 3-5 Days if not improving Activity Restrictions/Additional Instructions: Recommend following up with your marketing support assistant. Print Language: Malagasy Disposition Disposition: Home, Self Care
[2025-01-03 15:07] LABS: Hematocrit 40.0 % (37-47); Hemoglobin 13.1 g/dL (12.0-15.0); Immature Granulocytes Count 0.030 X10^3/uL (0.0-0.0); Mean Corp Hgb Conc 32.8 g/dL (32-36); Mean Corpuscular Volume 92.6 fL (81-99); Mean Platelet Vol. 10.3 fl (6.2-12.0); NRBC Flagged by Analyzer 0 % (0-5); Platelet Count 170 K/mm3 (150-450); RBC Distribution Width CV 13.2 % (11.6-14.6); RBC Distribution Width SD 45.0 fl (35.1-43.9); Red Blood Count 4.32 M/mm3 (4.2-5.4); White Blood Count 8.5 K/mm3 (4.4-11.0)
--- NOTE | 2025-01-03 15:15 | RAD_ITS ---
PROCEDURE: RAD/Chest PA and Lateral
[2025-01-03 15:39] LABS: Troponin T High Sensitivity 89 ng/L (<=14)
[2025-01-03 15:40] LABS: Anion Gap 11 (5-15); BUN 34 mg/dL (4-19); BUN/Creat Ratio 18.5 RATIO (10-20); Calcium,Total 9.7 mg/dL (7.6-11.0); Carbon Dioxide 30.0 mmol/L (21.0-32.0); Chloride 96 mmol/L (98-108); Estimated Creatinine Clearance 34.10 ml/min (50-250); Glucose 148 mg/dL (70-99); Potassium 4.1 mmol/L (3.3-5.1)
[2025-01-03 15:46] VITALS: BP 99/58; PULSE 58; RESP 16; O2SAT 98
[2025-01-03 16:00] VITALS: BP 108/68; PULSE 58; RESP 16; O2SAT 98
[2025-01-03 17:00] VITALS: BP 92/69; PULSE 58; RESP 14; O2SAT 100
[2025-01-03 17:20] LABS: Troponin T High Sens 2 HR 86 ng/L (<=14)
[2025-01-03 17:58] VITALS: BP 88/53; PULSE 58; RESP 18; O2SAT 99
[2025-01-03 18:32] VITALS: BP 105/61; PULSE 60; RESP 18; TEMP 36.6; O2SAT 99
== END 2025-01-03 18:33 | disposition home or self-care (01) ==
PROVIDERS: Emergency Provider Emergency Medicine; PCP Nurse Practitioner Family; Visit Provider Emergency Medicine
DX: R07.89 Other chest pain (principal); I13.0 Hypertensive heart and chronic kidney disease with heart failure and stage 1 through stage 4 chronic kidney disease, or unspecified chronic kidney disease; I50.32 Chronic diastolic (congestive) heart failure; J44.9 Chronic obstructive pulmonary disease, unspecified; E11.22 Type 2 diabetes mellitus with diabetic chronic kidney disease; I89.0 Lymphedema, not elsewhere classified; I25.10 Atherosclerotic heart disease of native coronary artery without angina pectoris; N18.9 Chronic kidney disease, unspecified; Z79.01 Long term (current) use of anticoagulants; Z87.891 Personal history of nicotine dependence; E78.00 Pure hypercholesterolemia, unspecified; D64.9 Anemia, unspecified; K21.9 Gastro-esophageal reflux disease without esophagitis; Z79.85 Long-term (current) use of injectable non-insulin antidiabetic drugs; R60.0 Localized edema
CPT/HCPCS: 71046; 80048; 84484; 85025; 93005; 99285; A4216

== ENCOUNTER → 2025-01-04 | Outpatient (CLI) | payer MEDICARE, MEDICAID, SELFPAY ==
[2025-01-04 19:16] LABS: Vitamin B12 848 pg/mL (180-914)
== END | disposition home or self-care (01) ==
LOC: VSLAB 12:01
PROVIDERS: PCP Nurse Practitioner Family
DX: D64.9 Anemia, unspecified (principal)
CPT/HCPCS: 36415; 82607

== ENCOUNTER → 2025-01-09 | Outpatient (CLI) | payer MEDICARE, MEDICAID, SELFPAY ==
--- NOTE | 2025-01-09 11:04 | RAD_ITS ---
PROCEDURE: SACRUM-COCCYX MIN 2 VIEWS 01/09/2025 REASON FOR EXAM: LOW BACK PAIN TECHNIQUE: Procedure Code: RADSAC Modality: DX Procedure: SACRUM-COCCYX MIN 2 VIEWS FINDINGS: The sacral arcs appear intact. No visualized acute fracture or dislocation. The sacroiliac joint spaces are grossly maintained. Degenerative changes of the partially visualized spine. RAD/Sacrum-Coccyx min 2 Views IMPRESSION: No acute abnormalities. Reading Location: [id number]
--- NOTE | 2025-01-09 11:04 | RAD_ITS ---
PROCEDURE: LUMBAR SPINE 2 OR 3 VIEWS 01/09/2025 REASON FOR EXAM: LOW BACK PAIN TECHNIQUE: Procedure Code: RADSPLL Modality: DX Procedure: LUMBAR SPINE 2 OR 3 VIEWS FINDINGS: No evidence of acute fracture or dislocation. Moderate degenerative changes of the visualized spine. Vertebral body heights are maintained. Grade 1 anterolisthesis of L4 on L5. RAD/Lumbar Spine 2 or 3 Views IMPRESSION: Spondylosis. Spondylolisthesis. Reading Location: [id number]
[2025-01-09 11:57] LABS: Creatinine, Urine (random) 88.20 mg/dL (28.00-217.00); Protein, Urine (Random) 11.4 mg/dL (0.0-12.0); Protein:Creat Ratio 129 mg/g CRE (0-200)
[2025-01-09 12:00] LABS: Albumin, Serum 3.9 g/dL (3.4-4.8); Anion Gap 11 (5-15); BUN 25 mg/dL (4-19); BUN/Creat Ratio 13.7 RATIO (10-20); Calcium,Total 9.7 mg/dL (7.6-11.0); Carbon Dioxide 28.4 mmol/L (21.0-32.0); Chloride 98 mmol/L (98-108); Glucose 103 mg/dL (70-99); Potassium 4.9 mmol/L (3.3-5.1)
== END | disposition home or self-care (01) ==
LOC: LAB 10:54
PROVIDERS: PCP Nurse Practitioner Family; Referring Provider Internal Medicine Nephrology; Visit Provider Internal Medicine Nephrology
DX: N18.32 Chronic kidney disease, stage 3b (principal); M54.50 Low back pain, unspecified
CPT/HCPCS: 36415; 72100; 72220; 80069; 82570; 84156

== ENCOUNTER 2025-01-17 11:21 | Day surgery (SDC) | payer MEDICARE, MEDICAID, SELFPAY ==
--- NOTE | 2025-01-15 12:57 | PAT.ANESEVAL ---
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 When Was Last Pacemaker Check QUESTION #4 FULL TEXT: You/Your Family Experience fever (hyperthermia) with Anesthesia Last Oral Intake Last Oral intake: Last Oral Intake NPO since Meds taken in AM with sips of water? 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 Has anyone observed you stop breathing during sleep? STOP Results Positive 01/15/25 09:03 QUESTION #5 FULL TEXT : Do you snore loudly (louder than talking or can be heard through closed doors)? 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 Specify any problems Hx of Preganancy in last 3 No 01/15/25 09:03 Months Nurse Filling Out Transfusion VCHRISTIN 01/15/25 09:03 & Questions: Date: 01/15/25 01/15/25 09:03 Time: 09:04 01/15/25 09:03 Patient unable to answer at this time (ie. 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: /Reproductive Hx- southeast regional sales manager Hx Now No 01/15/25 09:03 Gestational Age (in weeks): EDC: Hx Hx Para Hx Section SAB No 01/15/25 09:03 Does the father of the baby or his family experience fever w Father of the baby Malignant Hypertension history comment [facility] Medical History (Updated 01/15/25 @ 09:03 by Huyen Pablo) Tremors of nervous system Hypertension Obesity (BMI 30-39.9) Chronic anticoagulation Failure of outpatient treatment Cellulitis of right leg Hx of type 2 diabetes mellitus Hematoma of right lower leg Acute hypokalemia Diverticulitis Elevated brain natriuretic peptide (BNP) level Hypoxia Elevated troponin Heart failure Chronic kidney disease History of diabetes mellitus Chronic venous insufficiency History of atrial fibrillation Chronic anticoagulation Edema, peripheral Left shoulder pain Wears hearing aid Post-menopausal Depression Anxiety History of steroid therapy Walker as ambulation aid Kidney stones Arthritis Back pain History of IBS Former smoker COPD (chronic obstructive pulmonary disease) Shortness of breath on exertion Thyroid disease History of heart attack History of stress test History of echocardiogram Low platelet count Anemia History of ESBL E. coli infection Morbid obesity with BMI of 40.0-44.9, adult Congestive heart failure Peripheral edema History of CHF (congestive heart failure) History of atrial fibrillation History of hypertension Chest pain of uncertain etiology Bradycardia History of tobacco use History of diabetes mellitus, type II History of COPD Acute hypotension Pulmonary hypertension, secondary Abdominal ascites Diverticulitis large intestine w/o perforation or abscess w/bleeding Pericardial effusion with cardiac tamponade Chronic kidney disease History of cardiac arrest Chest pain Wears glasses Wears dentures Substance abuse Alcohol use Rash Gout High cholesterol PVD (peripheral vascular disease) Easy bruising Seizures Dietary restriction Gastric reflux Injury of back Vapes nicotine containing substance Fall History of pain when walking History of edema Insomnia Major depression On home oxygen therapy Emphysema, unspecified Neuropathy Cardiology follow-up encounter History of ulceration DKA (diabetic ketoacidosis) Cardiac arrest half-way current use of anticoagulant Encounter for infusaport central venous catheter removal Lichen sclerosus Macular degeneration Essential hypertension Decreased left ventricular function Paroxysmal atrial fibrillation Diverticulosis Migraine Iron deficiency anemia COPD (chronic obstructive pulmonary disease) Port-A-Cath in place Acid reflux IBS (irritable bowel syndrome) CHF (congestive heart failure) Neuropathy Kidney failure Hypothyroid Schizoaffective disorder, bipolar type Emphysema lung Diabetes Heart attack Home Medications Medication Instructions Recorded Last Taken Type apixaban 5 mg tablet (Eliquis) 5 mg PO BID blood thinner 12/24/22 01/12/25 History trazodone 100 mg tablet 100 mg PO QHS sleep 01/01/23 07/26/23 History aripiprazole 20 mg tablet 20 mg PO QHS mental health 03/09/23 03/18/24 History fluticasone propionate 50 1 spray intranasal DAILY PRN 04/27/23 Unknown History mcg/actuation nasal allergy symptoms spray,suspension divalproex 500 mg tablet,extended 500 mg PO QHS seizure 07/25/23 07/27/23 History release 24 hr levothyroxine 100 mcg tablet 100 mcg PO DAILY thyroid 07/25/23 07/27/23 History clotrimazole-betamethasone 1 1 applic topical BID skin 12/24/23 Unknown History %-0.05 % topical cream irritation empagliflozin 25 mg tablet 25 mg PO QAM diabetes 12/24/23 01/12/25 History (Jardiance) epinephrine 0.3 mg/0.3 mL 0.3 mg IM ONCE allergic reaction 12/24/23 Unknown History injection, auto-injector (EpiPen 2-Wayne) meloxicam 7.5 mg tablet 7.5 mg PO QDAY PRN pain 12/24/23 Unknown History pantoprazole 40 mg tablet,delayed 40 mg PO QDAY acid reflux 12/24/23 Unknown History release nystatin 100,000 unit/gram topical 1 applic topical BID skin 01/06/24 Unknown History powder irritation docusate sodium 100 mg capsule 100 mg PO BID PRN constipation 03/07/24 Unknown History (Colace) methocarbamol 500 mg tablet 500 mg PO 4X/DAY PRN Muscle 03/16/24 Unknown Rx pain/spasm #40 tabs atropine 1 % eye drops 1 drp PO BID eye health 05/03/24 Unknown History peg 400-propylene glycol 0.4 %-0.3 1 drp EACH EYE DAILY PRN dry eye(s) 05/03/24 Unknown History % eye drops (Lubricant Eye (PG-PEG 400)) hydrocortisone 2.5 % topical cream 1 applic topical BID PRN itching 05/29/24 Unknown History spironolactone 25 mg tablet 25 mg PO DAILY #30 tabs 09/27/24 Unknown Rx simethicone 125 mg capsule 125 mg PO QD-BID PRN abdominal 10/05/24 Unknown Rx distention #20 caps atorvastatin 10 mg tablet (Lipitor) 10 mg PO QDAY high cholersterol 11/23/24 Unknown Rx #30 tabs CPAP - Continuous Positive Airway 12/01/24 Unknown History Pressure([facility] INFORMATIONAL USE ONLY) deutetrabenazine 12 mg 12 mg PO QDAY 12/21/24 Unknown History tablet,extended release 24 hr (Austedo XR) dulaglutide 3 mg/0.5 mL 3 mg (0.5 mL) subcut QWEEK #2 mL 12/21/24 01/10/25 Rx subcutaneous pen injector (Trulicity) buspirone 7.5 mg tablet 7.5 mg PO BID 01/11/25 Unknown History fluticasone fur. 100 mcg-umeclid 2 inh inhalation QDAY 01/11/25 Unknown History 62.5 mcg-vilant 25 mcg inhalat.powder (Trelegy Ellipta) furosemide 40 mg tablet (Lasix) 40 mg PO QDAY 01/11/25 Unknown History gabapentin 300 mg capsule 300 mg PO TID nerve pain 01/11/25 Unknown History insulin glargine 100 unit/mL (3 10 unit subcut DAILY PRN diabetes 01/11/25 Unknown History mL) subcutaneous pen (Lantus Solostar U-100 Insulin) isosorbide mononitrate 30 mg 30 mg PO QDAY #90 tabs 01/11/25 Unknown Rx tablet,extended release 24 hr oxybutynin chloride 5 mg 5 mg PO QDAY 01/11/25 Unknown History tablet,extended release 24 hr linaclotide 145 mcg capsule 290 mcg PO QAM bowels 01/15/25 Unknown History (Linzess) ondansetron 4 mg disintegrating 4 mg PO Q8H PRN nausea and vomiting 01/15/25 Unknown History tablet Allergy/AdvReac Type Severity Reaction Status Date / Time acetaminophen (From Tylenol) Allergy Mild hives Verified 12/26/24 10:00 aspirin Allergy Mild Hives Verified 12/26/24 10:00 erythromycin base Allergy Mild Hives Verified 12/26/24 10:00 Penicillins Allergy Mild Hives Verified 12/26/24 10:00 polyethylene glycol 3350 Allergy Mild Nausea/Vom/ Verified 12/26/24 10:00 (From Miralax) Diarrhea tramadol Allergy Mild Hives Verified 12/26/24 10:00 tomato Allergy Food Verified 12/26/24 10:00 Allergy Family History Mother Heart disease Hypertension Cancer Father Brain aneurysm age 40 CVA (cerebral vascular accident) Cancer Brother Colon cancer Surgical History (Updated 01/15/25 @ 09:03 by Huyen Pablo) History of lumbar laminectomy (~03/2024) Hx of surgical procedure History of bilateral knee replacement Hx of vein stripping Hx of toe surgery History of lithotripsy History of delivery History of bilateral cataract extraction History of cholecystectomy H/O: hysterectomy Social History household members: caregiver Smoking Status: Former smoker Tobacco: How many years used: 18 Electronic Cigarette Use: with nicotine second hand exposure: No alcohol intake: never substance use type: does not use caffeine: Yes Audit: Pertinent Findings HISTORY of Pertinent Findings History of Pertinent Findings: history of diabetes mellitus, dyslipidemia, paroxysmal atrial fibrillation, chronic kidney disease, obesity, hypertension, anemia and COPD Pertinent Findings EKG Perinent findings: 12/2024: Accelerated junctional rhythm, nonspecific T wave abnormality Stress test pertinent findings: Stress Test Report 02/10/2023: Rest and stress SPECT Cardiolite nuclear imaging status post realignment, normalization, and attenuation correction demonstrate no fixed or reversible perfusion defects. There is end systolic thickening and brightening. The gated Cardiolite study demonstrates myocardial thickening and inward wall motion. The reported LVEF is 73%. Echo (EF%) pertinent findings: Echocardiogram 05/04/2024: Interpretation Summary The estimated ejection fraction is 65 %. Aortic sclerosis, no stenosis. Pulmonary function results/spirometer pertinent findings: PULMONARY FUNCTION TEST 01/26/23: Interpretation: Forced expiration spirometry shows no large airways obstructive ventilatory defect with an FEV1 of 66% predicted. There is no significant bronchodilator response by strict ATS criteria. Spirograms are of good quality and plateau normally. The respiratory flow volume loop shows a normal pattern. Lung volumes by body plethysmography show a decreased total lung capacity at 3.67 L, 74% predicted. All other lung volumes are reduced symmetrically. Diffusion capacity by carbon monoxide is decreased at 66% predicted. The airway resistance is elevated. No previous pulmonary function tests were available for review. Impression: Mild restrictive ventilatory defect with a disproportionate reduction in diffusion capacity Recommendation Anesthesia Recommendation Anesthesia recommendation: OPTIMIZED for anesthesia
[2025-01-17] VITALS (9 sets, daily range): BP systolic 111–135; BP diastolic 64–77; PULSE 57–88; RESP 16–18; TEMP 36.2–36.7; O2SAT 96–100; BMI 35.9
[2025-01-17] MEDS: Lactated Ringers 1,000 ML 15 ML IV (12:05)
--- NOTE | 2025-01-17 12:09 | PRE.ANES_ITS ---
ASA Classification* ASA Classification ASA Classification: 4 (CAD with anginal symptoms, COPD, HTN, T2DM, HFpEF, pAF, seizures) Assessment & Plan Anesthesia* Anesthesia Assessment Anesthesia Assessment: Discussed sedation and/or anesthesia options, risks, benefits, and alternatives with patient/parents/legal guardian/POA. Questions invited. The patient/parents/legal guardian/POA seems to understand and agrees to proceed with anesthesia plan. Reviewed the physical assessment, medical history, allergy history and patient home medications list prior to surgery/procedure/anesthetic and documented any changes. Performed airway and anesthesia risk assessments. Patient endorses having chest pain routinely, recently went to ED for ACS work up. The patient will be getting a LHC and the risks/benefits/alternatives were explained to her by Dr. Garcia (Cardiology). I explained to the patient that if there is ischemia, the patient is at risk of having an VA, or lethal arrhythmia. The patient verbalized understanding. Opportunity for questions invited. The patient, in light of the above, would still like to proceed with the procedure today. I also discussed these risks with Dr. Frank, who wished to proceed. The patient states that her bowel symptoms are so debilitating that she would like to proceed with the EGD/colonscopy, in light of the risk of possibility of VA. Given the patient's stable vital signs and lack of chest pain or other cardiac symptoms at this time, and weighing the benefits against risks, I believe it would be safe to proceed with anesthesia Anesthesia Type Anesthesia Type: MAC History Source History Obtained from:: Patient and Chart Anesthesia Focused Assessment* Temperature: 97.8 F Pulse Rate: 88 Blood Pressure: 135/77 Respiratory Rate: 18 Pulse Ox: 100 Oxygen Delivery Method: Room Air Airway Assessment Mouth opens: >3 cm Mallampati Score: III Neck Range of motion (ROM): Full ROM Labs Anesthesia Preop lab: CBC WBC, (4.4-11.0) 8.5 K/mm3 01/03/25, 14:45 RBC, (4.2-5.4) 4.32 M/mm3 01/03/25, 14:45 Hgb, (12.0-15.0) 13.1 g/dL 01/03/25, 14:45 Hct, (37-47) 40.0 % 01/03/25, 14:45 Plt Count, (150-450) 170 K/mm3 01/03/25, 14:45 CHEMISTRY Potassium, (3.3-5.1) 4.9 mmol/L 01/09/25, 10:57 Sodium, (133-145) 138 mmol/L 01/09/25, 10:57 Magnesium, (1.5-2.2) 1.9 mg/dL 10/08/24, 19:52 Phosphorus, (2.7-4.5) 3.3 mg/dL 01/09/25, 10:57 BUN, (4-19) 25 mg/dL H 01/09/25, 10:57 Creatinine, (0.70-1.20) 1.82 mg/dL H 01/09/25, 10:57 Glucose, (70-99) 103 mg/dL H 01/09/25, 10:57 POC Glucose, (74-106) 124 mg/dL H 10/11/24, 06:21 TSH, (0.300-4.200) 2.110 uIU/mL 10/08/24, 19:52 COAG PT, (11.7-14.9) 14.3 SECONDS 03/09/23, 15:56 Pre-Assessment Diagnosis/Proposed Procedure Planned Operative Procedure(s): COLONOSCOPY/EGD Anesthesia History 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 When Was Last Pacemaker Check QUESTION #4 FULL TEXT: You/Your Family Experience fever (hyperthermia) with Anesthesia Last Oral Intake Last Oral intake: Last Oral Intake NPO since 21:00 01/17/25 12:00 Meds taken in AM with sips of Yes 01/17/25 12:00 water? Meds patient instructed to SEE MED REC 01/17/25 12:00 take am of surgery PONV PONV - licensed sales producer: PONV - licensed sales producer Female Yes 01/15/25 09:03 HX of Motion Sickness No 01/15/25 09:03 HX of N/V After Surgery No 01/15/25 09:03 Non-Smoker No 01/15/25 09:03 Duration of Surgery greater No 01/15/25 09:03 than 60 minutes Number of Risk Factors 1 01/15/25 09:03 PONV Score Low Risk 01/15/25 09:03 Height & Weight Height & Weight: Anesthesia: Height & Weight Height 5 ft 3 in 01/17/25 12:00 Weight: 92 kg 01/17/25 12:00 Body Mass Index (BMI) 35.9 01/17/25 12:00 Respiratory Assessment Respiratory Assessment - licensed sales producer: Respiratory Tract Infection Hx - licensed sales producer Hx Respiratory Tract Infection No 01/15/25 09:03 STOP Sleep Apnea STOP Sleep Apnea - licensed sales producer: STOP Sleep Apnea - licensed sales producer Hx Hypertension Yes: CONTROLLED ON MED 01/15/25 09:03 Hx Sleep Apnea Yes 01/15/25 09:03 CPAP No 01/15/25 09:03 BIPAP No 01/15/25 09:03 Do you snore loudly (louder than talking or can be heard Do you often feel tired/ fatigued/ sleepy during daytime? Has anyone observed you stop breathing during sleep? STOP Results Positive 01/15/25 09:03 QUESTION #5 FULL TEXT : Do you snore loudly (louder than talking or can be heard through closed doors)? 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 Specify any problems Hx of Preganancy in last 3 No 01/15/25 09:03 Months Nurse Filling Out Transfusion VCHRISTIN 01/15/25 09:03 & Questions: Date: 01/15/25 01/15/25 09:03 Time: 09:04 01/15/25 09:03 Patient unable to answer at this time (ie. confused, unrespo /Reproduction History /Reproductive History - licensed sales producer: /Reproductive Hx- licensed sales producer Hx Now No 01/15/25 09:03 Gestational Age (in weeks): EDC: Hx Hx Para Hx Section SAB No 01/15/25 09:03 Does the father of the baby or his family experience fever w Father of the baby Malignant Hypertension history comment Active Medications Active Medications: Current Medications Generic Name Dose Route Start Last Admin Trade Name Freq PRN Reason Stop Dose Admin Lactated Ringer's 1,000 mls @ 15 mls/hr 01/17/25 11:30 01/17/25 12:05 IV 15 mls/hr .Q48H PAIGE Administration PFSH Medical History (Updated 01/15/25 @ 09:03 by Huyen Pablo) Tremors of nervous system Hypertension Obesity (BMI 30-39.9) Chronic anticoagulation Failure of outpatient treatment Cellulitis of right leg Hx of type 2 diabetes mellitus Hematoma of right lower leg Acute hypokalemia Diverticulitis Elevated brain natriuretic peptide (BNP) level Hypoxia Elevated troponin Heart failure Chronic kidney disease History of diabetes mellitus Chronic venous insufficiency History of atrial fibrillation Chronic anticoagulation Edema, peripheral Left shoulder pain Wears hearing aid Post-menopausal Depression Anxiety History of steroid therapy Walker as ambulation aid Kidney stones Arthritis Back pain History of IBS Former smoker COPD (chronic obstructive pulmonary disease) Shortness of breath on exertion Thyroid disease History of heart attack History of stress test History of echocardiogram Low platelet count Anemia History of ESBL E. coli infection Morbid obesity with BMI of 40.0-44.9, adult Congestive heart failure Peripheral edema History of CHF (congestive heart failure) History of atrial fibrillation History of hypertension Chest pain of uncertain etiology Bradycardia History of tobacco use History of diabetes mellitus, type II History of COPD Acute hypotension Pulmonary hypertension, secondary Abdominal ascites Diverticulitis large intestine w/o perforation or abscess w/bleeding Pericardial effusion with cardiac tamponade Chronic kidney disease History of cardiac arrest Chest pain Wears glasses Wears dentures Substance abuse Alcohol use Rash Gout High cholesterol PVD (peripheral vascular disease) Easy bruising Seizures Dietary restriction Gastric reflux Injury of back Vapes nicotine containing substance Fall History of pain when walking History of edema Insomnia Major depression On home oxygen therapy Emphysema, unspecified Neuropathy Cardiology follow-up encounter History of ulceration DKA (diabetic ketoacidosis) Cardiac arrest longterm current use of anticoagulant Encounter for infusaport central venous catheter removal Lichen sclerosus Macular degeneration Essential hypertension Decreased left ventricular function Paroxysmal atrial fibrillation Diverticulosis Migraine Iron deficiency anemia COPD (chronic obstructive pulmonary disease) Port-A-Cath in place Acid reflux IBS (irritable bowel syndrome) CHF (congestive heart failure) Neuropathy Kidney failure Hypothyroid Schizoaffective disorder, bipolar type Emphysema lung Diabetes Heart attack Home Medications Medication Instructions Recorded Last Taken Type apixaban 5 mg tablet (Eliquis) 5 mg PO BID blood thinn er 12/24/22 01/12/25 History trazodone 100 mg tablet 100 mg PO QHS sleep 01/01/23 07/26/23 History aripiprazole 20 mg tablet 20 mg PO QHS mental health 0 03/09/23 03/18/24 History fluticasone propionate 50 1 spray intranasal DAILY PRN 04/27/23 Unknown History mcg/actuation nasal allergy symptoms spray,suspension divalproex 500 mg tablet,extended 500 mg PO QHS seizur e 07/25/23 07/27/23 History release 24 hr levothyroxine 100 mcg tablet 100 mcg PO DAILY thyroid 07/25/23 01/17/25 08:30 History clotrimazole-betamethasone 1 1 applic topical BID skin 12/24/23 Unknown History %-0.05 % topical cream irritation empagliflozin 25 mg tablet 25 mg PO QAM diabetes 12/2301/12/25 History (Jardiance) epinephrine 0.3 mg/0.3 mL 0.3 mg IM ONCE allergic reac tion 12/24/23 Unknown History injection, auto-injector (EpiPen 2-Wayne) meloxicam 7.5 mg tablet 7.5 mg PO QDAY PRN pain 12/06 10/29 Unknown History pantoprazole 40 mg tablet,delayed 40 mg PO QDAY acid r eflux 12/24/23 Unknown History release nystatin 100,000 unit/gram topical 1 applic topical BI D skin 01/06/24 Unknown History powder irritation docusate sodium 100 mg capsule 100 mg PO BID PRN const ipation 03/07/24 Unknown History (Colace) methocarbamol 500 mg tablet 500 mg PO 4X/DAY PRN Muscl e 03/16/24 Unknown Rx pain/spasm #40 tabs atropine 1 % eye drops 1 drp PO BID eye health 04/09 08/30 Unknown History peg 400-propylene glycol 0.4 %-0.3 1 drp EACH EYE AIDE Y PRN dry eye(s) 05/03/24 Unknown History % eye drops (Lubricant Eye (PG-PEG 400)) hydrocortisone 2.5 % topical cream 1 applic topical BI D PRN itching 05/29/24 Unknown History spironolactone 25 mg tablet 25 mg PO DAILY #30 tabs Unknown Rx simethicone 125 mg capsule 125 mg PO QD-BID PRN abdomi nal 10/05/24 Unknown Rx distention #20 caps atorvastatin 10 mg tablet (Lipitor) 10 mg PO QDAY high cholersterol 11/23/24 Unknown Rx #30 tabs CPAP - Continuous Positive Airway 12/01/24 Unknown Hi story Pressure([facility] INFORMATIONAL USE ONLY) deutetrabenazine 12 mg 12 mg PO QDAY 12/21/24 Unkno wn History tablet,extended release 24 hr (Austedo XR) dulaglutide 3 mg/0.5 mL 3 mg (0.5 mL) subcut QWEEK # 2 mL 12/21/24 01/10/25 Rx subcutaneous pen injector (Trulicity) buspirone 7.5 mg tablet 7.5 mg PO BID 01/11/25 Unkno wn History fluticasone fur. 100 mcg-umeclid 2 inh inhalation QDAY 01/11/25 Unknown History 62.5 mcg-vilant 25 mcg inhalat.powder (Trelegy Ellipta) furosemide 40 mg tablet (Lasix) 40 mg PO QDAY 01/11/25 Unknown History gabapentin 300 mg capsule 300 mg PO TID nerve pain 08/3001/17/25 08:30 History insulin glargine 100 unit/mL (3 10 unit subcut DAILY P [employer] 01/11/25 Unknown History mL) subcutaneous pen (Lantus Solostar U-100 Insulin) isosorbide mononitrate 30 mg 30 mg PO QDAY #90 tabs 01/17/25 08:30 Rx tablet,extended release 24 hr oxybutynin chloride 5 mg 5 mg PO QDAY 01/11/25 Unknow n History tablet,extended release 24 hr linaclotide 145 mcg capsule 290 mcg PO QAM bowels 01/06 Unknown History (Linzess) ondansetron 4 mg disintegrating 4 mg PO Q8H PRN nausea and vomiting 01/15/25 Unknown History tablet Allergy/AdvReac Type Severity Reaction Status Date / Time acetaminophen (From Tylenol) Allergy Mild hives Verified 01/17/25 11:57 aspirin Allergy Mild Hives Verified 01/17/25 11:57 erythromycin base Allergy Mild Hives Verified 01/17/25 11:57 Penicillins Allergy Mild Hives Verified 01/17/25 11:57 polyethylene glycol 3350 Allergy Mild Nausea/Vom/ Verified 01/17/25 11:57 (From Miralax) Diarrhea tramadol Allergy Mild Hives Verified 01/17/25 11:57 tomato Allergy Food Verified 01/17/25 11:57 Allergy Family History Mother Heart disease Hypertension Cancer Father Brain aneurysm age 40 CVA (cerebral vascular accident) Cancer Brother Colon cancer Surgical History (Updated 01/15/25 @ 09:03 by Huyen Pablo) History of lumbar laminectomy (~03/2024) Hx of surgical procedure History of bilateral knee replacement Hx of vein stripping Hx of toe surgery History of lithotripsy History of delivery History of bilateral cataract extraction History of cholecystectomy H/O: hysterectomy Social History household members: caregiver Smoking Status: Former smoker Tobacco: How many years used: 18 Electronic Cigarette Use: with nicotine second hand exposure: No alcohol intake: never substance use type: does not use caffeine: Yes Review of Systems (Anesthesia) ROS Narrative System reviewed and no additional complaints, except as documented. Physical Exam Const alert, oriented x3 and average body habitus Resp normal respiratory effort, normal air movement and clear to auscultation bilaterally Cardio regular rate, regular rhythm and no murmurs; Negative for diaphoretic
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
--- NOTE | 2025-01-17 13:00 | COLBX_PTH ---
PATIENT: JADE SWANSON LOC: EN U#:[id number] AGE/SX: 64/F ROOM: RE01/17/[address]: Dr. Everton Frank DO : 1960 BED: DIS: 01/17/2025 SPEC #: [id number] RECD: 01/17/25 13:52 STATUS: NORM REDaria #: [id number] LINSEY: 01/17/25 13:[address]: Everton Frank DEPT: SURGICAL PATHOLOGY RECD BY: Andrés Pate ENTERED: 01/17/25 14:24 SP TYPE: COLON BX OTHR DR: Eric Marion, ENAMEL APPLIER-C Tissues: A - Gastric mucous membrane B - COLON BIOPSY Procedures: Immunohistochemical Stains Surgery Specimen Level IV HEADER OPERATION: Colonoscopy, EGD with biopsy PRE-OP DIAGNOSIS: Abdominal pain, fecal occult blood test positive TISSUE SUBMITTED: A- Gastric body, B- Hepatic flexure polyp MICROSCOPIC DIAGNOSIS A. Stomach, gastric body, biopsies: - Oxyntic mucosa with slight chronic inflammation - An immunohistochemical stain for Helicobacter pylori is negative B. Large intestine, hepatic flexure polyp: - Tubular adenoma MICROSCOPIC DESCRIPTION Slides are reviewed. All matched controls reacted appropriately. These tests were developed and their performance characteristics determined by [facility]. They may not have been cleared or approved by the U.S. Food and Drug Administration. The FDA has determined that such clearance or approval is not necessary. The above immunohistochemical markers are viewed by the Pathologist. GROSS DESCRIPTION A. Received in fixative is one container labeled with the patient's name and designated "Gastric body." The specimen consists of two irregular fragments of aly tissue that measure 0.3 and 0.5 cm. The specimen is totally submitted in one cassette. B. Received in fixative is one container labeled with the patient's name and designated "Hepatic flexure polyp." The specimen consists of one irregular fragment of aly tissue that measures 0.4 cm. The specimen is totally submitted in one cassette. GA 01/17/2025 CPT:77922v0 ,[id number]
--- NOTE | 2025-01-17 13:16 | PCM.POST.ANE ---
Anesthesia: Postop Eval I Current Vital Signs Temperature: 98.1 F Pulse Rate: 60 Blood Pressure: 118/64 Respiratory Rate: 16 Pulse Ox: 100 Oxygen Delivery Method: Room Air Assessment Airway patent: Yes Spontaneous unlabored respirations: Yes Mental status: Asleep nausea: No Vomiting: No Anesthesia Complication: No Fluid Hydration Crystalloid volume administer (ml): 400 Total IV fluid infused: 400 Progress Note Anesthesia document: Postop Eval 1 completed: Yes
--- NOTE | 2025-01-17 13:17 | OP.PROVAT_ITS ---
01/17/2025 Eric Marion [facility], Assistant Professor Of Nursing-c Re : Upper GI endoscopy procedure for Brandy San Dear Sanam This procedure was performed on Friday, January 17, 2025. My impressions and recommendations are as follows: Impressions : - No gross lesions in the entire esophagus. - Chronic gastritis. Biopsied. - No gross lesions in the entire examined duodenum. Recommendations : - Discharge patient to home. - Resume previous diet. - Continue present medications. - Await pathology results. - Repeat upper endoscopy in 4 months for surveillance. - Use Protonix (pantoprazole) 40 mg PO BID for 2 months. - Use sucralfate tablets 1 gram PO BID for 1 month. My findings are described in the full procedure note, which is enclosed. If I can be of further assistance, please feel free to contact me at . Sincerely, Everton Frank, 01/17/2025 1:17:20 PM This report has been signed electronically.
--- NOTE | 2025-01-17 13:17 | OP.EGD_ITS ---
Patient Name: Brandy San Procedure Date: 01/17/2025 12:35 PM Date of : 1960 Age: 64 Procedure: Upper GI endoscopy Indications: Epigastric abdominal pain, Abdominal pain in the right lower quadrant, Acute post hemorrhagic anemia, Iron deficiency anemia Providers: Everton Frank DO Referring MD: Eric Marion yonas, Saw Repairer-c Medicines: Monitored Anesthesia Care Patient Profile: This is a 64 year old female. Refer to note in patient chart for documentation of history and physical. Patient has symptoms of acute epigastric abdominal pain. Complications: No immediate complications. Procedure: Pre-Anesthesia Assessment: - Prior to the procedure, a History and Physical was performed, and patient medications and allergies were reviewed. The patient is competent. The risks and benefits of the procedure and the sedation options and risks were discussed with the patient. All questions were answered and informed consent was obtained. Patient identification and proposed procedure were verified by the physician in the pre-procedure area. Mental Status Examination: alert and oriented. Airway Examination: normal oropharyngeal airway and neck mobility. Respiratory Examination: clear to auscultation. CV Examination: normal. Prophylactic Antibiotics: The patient does not require prophylactic antibiotics. Prior Anticoagulants: The patient has taken no anticoagulant or antiplatelet agents. ASA Grade Assessment: II - A patient with mild systemic disease. After reviewing the risks and benefits, the patient was deemed in satisfactory condition to undergo the procedure. The anesthesia plan was to use monitored anesthesia care (MAC). Immediately prior to administration of medications, the patient was re-assessed for adequacy to receive sedatives. The heart rate, respiratory rate, oxygen saturations, blood pressure, adequacy of pulmonary ventilation, and response to care were monitored throughout the procedure. The physical status of the patient was re-assessed after the procedure. After obtaining informed consent, the endoscope was passed under direct vision. Throughout the procedure, the patient's blood pressure, pulse, and oxygen saturations were monitored continuously. The pediatric colonoscope was introduced through the mouth, and advanced to the fourth part of the duodenum. Small bowel enteroscopy was deemed necessary. The upper GI endoscopy was accomplished without difficulty. The patient tolerated the procedure well. Scope In: 12:49:27 PM Scope Out: 12:52:03 PM Total Procedure Duration Time 0 hours 2 minutes 36 seconds Findings: No gross lesions were noted in the entire esophagus. Localized severe inflammation characterized by erythema, friability, granularity and target ulcerations was found in the gastric body. Biopsies were taken with a cold forceps for histology. Biopsies were taken with a cold forceps for Helicobacter pylori testing. Verification of patient identification for the specimen was done. Estimated blood loss was minimal. No gross lesions were noted in the entire examined duodenum. Impression: - No gross lesions in the entire esophagus. - Chronic gastritis. Biopsied. - No gross lesions in the entire examined duodenum. Recommendation: - Discharge patient to home. - Resume previous diet. - Continue present medications. - Await pathology results. - Repeat upper endoscopy in 4 months for surveillance. - Use Protonix (pantoprazole) 40 mg PO BID for 2 months. - Use sucralfate tablets 1 gram PO BID for 1 month. Procedure Code(s): --- Professional --- 99845, Small intestinal endoscopy, enteroscopy beyond second portion of duodenum, not including ileum; with biopsy, single or multiple CPT copyright 2021 [employer]. All rights reserved. The codes documented in this report are preliminary and upon commercial green building architect review may be revised to meet current compliance requirements. Everton Frank DO 01/17/2025 1:17:20 PM This report has been signed electronically. Number of Addenda: 0 Note Initiated On: 01/17/2025 12:35 PM
--- NOTE | 2025-01-17 13:20 | OP.PROVAT_ITS ---
01/17/2025 Eric Marion [facility], Flying Instructor-c Re : Colonoscopy procedure for Brandy San Dear Sanam This procedure was performed on Friday, January 17, 2025. My impressions and recommendations are as follows: Impressions : - Diverticulosis in the recto-sigmoid colon, in the sigmoid colon, in the descending colon and at the splenic flexure. - One 7 mm polyp at the hepatic flexure, removed with a jumbo cold forceps. Resected and retrieved. - The examination was otherwise normal on direct and retroflexion views. Recommendations : - Discharge patient to home. - Resume previous diet. - Continue present medications. - Repeat colonoscopy in 5 years for surveillance. My findings are described in the full procedure note, which is enclosed. If I can be of further assistance, please feel free to contact me at . Sincerely, Everton Frank, 01/17/2025 1:19:34 PM This report has been signed electronically.
--- NOTE | 2025-01-17 13:20 | OP.COLON_ITS ---
Patient Name: Brandy San Procedure Date: 01/17/2025 12:52 PM Date of : 1960 Age: 64 Procedure: Colonoscopy Indications: Screening for colorectal malignant neoplasm Providers: Everton Frank DO Referring MD: [facility], [employer] Operator-[employer] Medicines: Monitored Anesthesia Care Patient Profile: This is a 64 year old female. Refer to note in patient chart for documentation of history and physical. Patient has symptoms of acute epigastric abdominal pain. Last Colonoscopy: more than 10 years ago. Complications: No immediate complications. Procedure: Pre-Anesthesia Assessment: - Prior to the procedure, a History and Physical was performed, and patient medications and allergies were reviewed. The patient is competent. The risks and benefits of the procedure and the sedation options and risks were discussed with the patient. All questions were answered and informed consent was obtained. Patient identification and proposed procedure were verified by the physician in the pre-procedure area. Mental Status Examination: alert and oriented. Airway Examination: normal oropharyngeal airway and neck mobility. Respiratory Examination: clear to auscultation. CV Examination: normal. Prophylactic Antibiotics: The patient does not require prophylactic antibiotics. Prior Anticoagulants: The patient has taken no anticoagulant or antiplatelet agents. ASA Grade Assessment: II - A patient with mild systemic disease. After reviewing the risks and benefits, the patient was deemed in satisfactory condition to undergo the procedure. The anesthesia plan was to use monitored anesthesia care (MAC). Immediately prior to administration of medications, the patient was re-assessed for adequacy to receive sedatives. The heart rate, respiratory rate, oxygen saturations, blood pressure, adequacy of pulmonary ventilation, and response to care were monitored throughout the procedure. The physical status of the patient was re-assessed after the procedure. After I obtained informed consent, the scope was passed under direct vision. Throughout the procedure, the patient's blood pressure, pulse, and oxygen saturations were monitored continuously. The pediatric colonoscope was introduced through the anus and advanced to the cecum, identified by the ileocecal valve. The colonoscopy was performed without difficulty. The patient tolerated the procedure well. The quality of the bowel preparation was adequate. The ileocecal valve and the rectum were photographed. Scope In: 12:53:32 PM Scope Withdrawal Time 0 hours 7 minutes 41 seconds Scope Out: 1:07:55 PM Total Procedure Duration Time 0 hours 14 minutes 23 seconds Findings: The perianal and digital rectal examinations were normal. Multiple small and large-mouthed diverticula were found in the recto-sigmoid colon, sigmoid colon, descending colon and splenic flexure. A 7 mm polyp was found in the hepatic flexure. The polyp was sessile. The polyp was removed with a jumbo cold forceps. Resection and retrieval were complete. Verification of patient identification for the specimen was done. Estimated blood loss was minimal. The exam was otherwise without abnormality on direct and retroflexion views. Impression: - Diverticulosis in the recto-sigmoid colon, in the sigmoid colon, in the descending colon and at the splenic flexure. - One 7 mm polyp at the hepatic flexure, removed with a jumbo cold forceps. Resected and retrieved. - The examination was otherwise normal on direct and retroflexion views. Recommendation: - Discharge patient to home. - Resume previous diet. - Continue present medications. - Repeat colonoscopy in 5 years for surveillance. Procedure Code(s): --- Professional --- 26814, Colonoscopy, flexible; with biopsy, single or multiple CPT copyright 2021 [employer] [employer]. All rights reserved. The codes documented in this report are preliminary and upon aerodynamics teacher review may be revised to meet current compliance requirements. Everton Frank DO 01/17/2025 1:19:34 PM This report has been signed electronically. Number of Addenda: 0 Note Initiated On: 01/17/2025 12:52 PM
--- NOTE | 2025-01-17 16:25 | PCM.POSTANE2 ---
Anesthesia Postop Eval I Sum Postop Eval Completion status Anesthesia document: Postop Eval 1 completed: Yes Anesthesia Postop Eval I Summary Anesthesia Postop Eval I Summary: Anesthesia Postop Eval I: Assessment Summary Airway patent Yes 01/17/25 13:17 [email or web address] Spontaneous unlabored Yes 01/17/25 13:17 [email or web address] respirations Mental status Asleep 01/17/25 13:17 [email or web address] nausea No 01/17/25 13:17 [email or web address] Vomiting No 01/17/25 13:17 [email or web address] Anesthesia Postop Eval I: Fluid Summary Crystalloid volume administer 400 01/17/25 13:17 [email or web address] (ml) Colloids volume administered ( ml) Blood Product volume administered (ml) Total IV fluid infused 400 01/17/25 13:17 [email or web address] Anesthesia Postop Eval I: Summary Notes Anesthesia Complication No 01/17/25 13:17 [email or web address] Anesthesia Complication Comment: Post-operative progress note Anesthesia: Postop Eval II Evaluation Mental status: Awake Pain Level: 0 nausea: No Vomiting: No Complications Anesthesia Complication: No
== END 2025-01-17 14:33 | disposition home or self-care (01) ==
LOC: EN 11:21 → AC 11:23
PROVIDERS: PCP Nurse Practitioner Family; Referring Provider Nurse Practitioner Family; Visit Provider Internal Medicine Gastroenterology
DX: D12.3 Benign neoplasm of transverse colon (principal); I13.0 Hypertensive heart and chronic kidney disease with heart failure and stage 1 through stage 4 chronic kidney disease, or unspecified chronic kidney disease; I50.9 Heart failure, unspecified; J43.9 Emphysema, unspecified; I48.0 Paroxysmal atrial fibrillation; E11.22 Type 2 diabetes mellitus with diabetic chronic kidney disease; Z79.4 Long term (current) use of insulin; Z79.85 Long-term (current) use of injectable non-insulin antidiabetic drugs; K21.9 Gastro-esophageal reflux disease without esophagitis; K29.50 Unspecified chronic gastritis without bleeding; K64.9 Unspecified hemorrhoids; D50.0 Iron deficiency anemia secondary to blood loss (chronic); Z87.891 Personal history of nicotine dependence; Z79.899 Other long term (current) drug therapy; N18.9 Chronic kidney disease, unspecified; K57.30 Diverticulosis of large intestine without perforation or abscess without bleeding; E78.00 Pure hypercholesterolemia, unspecified; Z79.890 Hormone replacement therapy; E03.9 Hypothyroidism, unspecified; Z79.01 Long term (current) use of anticoagulants
CPT/HCPCS: 44361; 45380; 88305; 88342; J2405

== ENCOUNTER 2025-01-23 08:36 | Day surgery (SDC) | payer MEDICARE, MEDICAID, SELFPAY ==
[2025-01-19 11:12] LABS: Hematocrit 39.1 % (37-47); Hemoglobin 12.7 g/dL (12.0-15.0); Immature Granulocytes Count 0.030 X10^3/uL (0.0-0.0); Mean Corp Hgb Conc 32.5 g/dL (32-36); Mean Corpuscular Volume 92.9 fL (81-99); Mean Platelet Vol. 10.4 fl (6.2-12.0); NRBC Flagged by Analyzer 0 % (0-5); Platelet Count 192 K/mm3 (150-450); RBC Distribution Width CV 13.0 % (11.6-14.6); RBC Distribution Width SD 44.3 fl (35.1-43.9); Red Blood Count 4.21 M/mm3 (4.2-5.4); White Blood Count 8.6 K/mm3 (4.4-11.0)
[2025-01-19 11:16] LABS: Prothrombin Time (Protime)PT. 14.2 SECONDS (11.7-14.9)
[2025-01-19 11:17] LABS: Partial Thromboplast Time 29.3 Seconds (24.1-36.2)
[2025-01-19 11:53] LABS: Anion Gap 11 (5-15); BUN 20 mg/dL (4-19); BUN/Creat Ratio 12.7 RATIO (10-20); Calcium,Total 9.8 mg/dL (7.6-11.0); Carbon Dioxide 32.1 mmol/L (21.0-32.0); Chloride 96 mmol/L (98-108); Glucose 125 mg/dL (70-99); Potassium 3.0 mmol/L (3.3-5.1)
[2025-01-22 08:00] VITALS: BMI 36.6
[2025-01-23 09:01] LABS: Potassium 3.8 mmol/L (3.3-5.1)
--- NOTE | 2025-01-29 15:12 | CL.D_ITS ---
Patient Name: JADE SWANSON Study Date: 01/23/2025 Performing: Brittney Garcia MD Ht: 63 inches 160.02 cm : 1960 Wt: 207.3 lbs 93.89 kg Age: 64 Gender: female BSA: 1.96 PROCEDURE(S) PERFORMED DC01-(71310)LHC/COR/LV CLINICAL PROFILE AND INDICATIONS Indications: Suspected CAD Heart Failure: None Stress/Imaging Stress/Image Study Performed: No CAD Presentations: Symptom unlikely to be ischemic. CONCLUSIONS No angiographic CAD LVEDP 21 mm Hg RECOMMENDATIONS Risk factor modification DESCRIPTION OF PROCEDURE The patient arrived to the procedure lab. The risks and benefits of the procedure as well as a full description of our services here and current unavailability of surgical backup were fully explained to the patient and/or their significant other prior to the catheterization. The Timeout was completed, verifying the correct patient and procedure. The patient's procedural site was prepped and draped in the usual fashion. Local anesthetic was given subcutaneously to right radial region with Lidocaine 2%. Using a modified Seldinger technique, arterial access was obtained via the right radial artery, a 6Fr sheath was inserted. Left Coronary Artery selective angiography was performed in multiple views using a 5 Fr. 4.0 Concord catheter. Right Coronary Artery selective angiography was then performed in multiple views using a 5 Fr. 4.0 Concord catheter. LV to AO pullback pressures were then recorded.The arterial sheath was pulled and a TR Band was applied for hemostasis CORONARY ANGIOGRAPHY DOMINANCE: Right Dominant LEFT HEART ASSESSMENT LVEDP: 21 mmHg LEFT MAIN: Angiographically normal LEFT ANTERIOR DESCENDING ARTERY: Angiographically normal CIRCUMFLEX ARTERY: Angiographically normal RIGHT CORONARY ARTERY: Angiographically normal COMPLICATIONS No Complications PROCEDURE MEDICATIONS Versed 2 mg IV Fentanyl 50 mcg IV Oxygen: 2 L/min via nasal cannula Heparin given IA 01/23/2025 13:35:54 Verapamil 2.5mg, Ntg 200mcgs, 2000 units of Heparin given IA 01/23/2025 13:35:54 IV Bolus: .9 NaCl 250 ml total 01/23/2025 13:44:09 SUMMARY OF HEMODYNAMIC DATA Time AIR REST ECG 10:26:34 AO 105/68 (83) SA 13:38:06 AO 112/67 (85) 13:41:36 LV 117/9, 21 13:43:30 LV 120/11, 21 13:43:38 LVp 123/9, 21 13:43:50 AOp 115/61 (82) 13:43:57 AIR REST 14:12:37 Signed By Brittney Garcia MD On 01/29/2025 15:11:06 Signed By Brittney Garcia MD On 01/23/2025 14:12:25 Brittney Garcia MD
== END 2025-01-23 15:20 | disposition home or self-care (01) ==
PROVIDERS: PCP Nurse Practitioner Family; Referring Provider Internal Medicine Cardiovascular Disease; Visit Provider Internal Medicine Cardiovascular Disease
DX: R07.89 Other chest pain (principal); F25.0 Schizoaffective disorder, bipolar type; I13.0 Hypertensive heart and chronic kidney disease with heart failure and stage 1 through stage 4 chronic kidney disease, or unspecified chronic kidney disease; I50.32 Chronic diastolic (congestive) heart failure; J43.2 Centrilobular emphysema; I48.0 Paroxysmal atrial fibrillation; E11.22 Type 2 diabetes mellitus with diabetic chronic kidney disease; Z79.4 Long term (current) use of insulin; E66.812 Obesity, class 2; Z79.01 Long term (current) use of anticoagulants; Z79.85 Long-term (current) use of injectable non-insulin antidiabetic drugs; E78.00 Pure hypercholesterolemia, unspecified; K21.9 Gastro-esophageal reflux disease without esophagitis; N18.9 Chronic kidney disease, unspecified; E03.9 Hypothyroidism, unspecified; Z79.890 Hormone replacement therapy; Z79.899 Other long term (current) drug therapy; Z87.891 Personal history of nicotine dependence; Z68.38 Body mass index [BMI] 38.0-38.9, adult; Z86.74 Personal history of sudden cardiac arrest
CPT/HCPCS: 36415; 80048; 84132; 85025; 85610; 85730; 93458; 99152; 99153; C1894; Q9967; C1769

== ENCOUNTER → 2025-01-26 | Outpatient (CLI) | payer MEDICARE, MEDICAID, SELFPAY ==
[2025-01-26 11:03] LABS: Anion Gap 13 (5-15); BUN 29 mg/dL (4-19); BUN/Creat Ratio 19.2 RATIO (10-20); Calcium,Total 9.7 mg/dL (7.6-11.0); Carbon Dioxide 29.4 mmol/L (21.0-32.0); Chloride 97 mmol/L (98-108); Glucose 138 mg/dL (70-99); Potassium 3.5 mmol/L (3.3-5.1)
== END | disposition home or self-care (01) ==
LOC: LAB 09:50
PROVIDERS: PCP Nurse Practitioner Family; Referring Provider Internal Medicine Cardiovascular Disease; Visit Provider Internal Medicine Cardiovascular Disease
DX: I50.30 Unspecified diastolic (congestive) heart failure (principal)
CPT/HCPCS: 36415; 80048

== ENCOUNTER → 2025-02-22 | Outpatient (CLI) | payer MEDICARE, MEDICAID, SELFPAY ==
--- NOTE | 2025-02-22 09:56 | MRI_ITS ---
PROCEDURE: BRAIN WITHOUT CONTRAST 02/22/2025 REASON FOR EXAM: Clinical history of tremor TECHNIQUE: Procedure Code: MRIBR Modality: MR Procedure: BRAIN WITHOUT CONTRAST Multiplanar and multisequence images were obtained. COMPARISON: CT head 01/23/2024 FINDINGS: No acute infarct or hemorrhage. Scattered nonspecific and partially confluent areas of periventricular and subcortical T2/FLAIR white matter hyperintensities in the cerebral hemispheres likely reflect chronic microvascular ischemic changes. No extra-axial fluid collection. No significant mass effect or herniation of the brain. The ventricular system and sulci/fissures are within expected limits of size and configuration for the patient's stated age. The basal cisterns are patent. The intracranial large vessel arterial flow voids are maintained. The mastoid air cells clear. The paranasal sinuses are predominately clear. Bilateral ocular lens replacements. The calvarial bone marrow signal is within normal limits. MRI/Brain without Contrast IMPRESSION: 1. No acute infarct, hemorrhage, or significant mass effect. 2. Chronic microvascular ischemic changes. Reading Location: [facility]
== END | disposition home or self-care (01) ==
LOC: OPMRI 09:55
PROVIDERS: PCP Nurse Practitioner Family
DX: G20.A1 Parkinson's disease without dyskinesia, without mention of fluctuations (principal)
CPT/HCPCS: 70551